=== PATIENT | female | born 1960 | race Caucasian/White ===

== ENCOUNTER 2017-02-17 10:45 | Emergency (ER) | payer MEDICARE, OTHER ==
[~2017-02-17] VITALS: Ht 170.2 cm; Wt 74.8 kg
[~2017-02-17 10:45] MED LIST: ALPR1TAB2 PO; CLON0.1T PO; ESCI20TA PO; LEVO200T6 PO; METO-274 PO; SIMV20TA3 PO
[2017-02-17] MEDS ORDERED: LEVAMIR (11:08)
[2017-02-17] MEDS ORDERED: OMEP40CA36 (11:08)
[2017-02-17] MEDS ORDERED: METF500T8 (11:08)
[2017-02-17] MEDS ORDERED: KETOROLAC 30 MG/ML VIAL IVP STA (11:40)
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
[2017-02-17 12:53] LABS: ANION GAP 13 MMOL/L (5-14); BLOOD UREA NITROGEN 16 MG/DL (7-18); BUN/CREATININE RATIO 20; CARBON DIOXIDE 24 MMOL/L (21-32); CHLORIDE 97 MMOL/L (98-107); CREATININE SERUM 0.82 MG/DL (0.60-1.30); GFR ESTIMATED > 60; GLUCOSE 271 MG/DL (70-105); POTASSIUM 4.6 MMOL/L (3.6-5.0); SODIUM 134 MMOL/L (135-145)
[2017-02-17] MEDS ORDERED: IOHEXOL 350 MG/ML 100 ML (OMNIPAQUE 350) VIAL IV ONE (13:15)
[2017-02-17] MEDS ORDERED: NS 100 ML (IVPB) BAG IV ONE (13:15)
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
[2017-02-17 14:34] VITALS: BP 172/94
== END 2017-02-17 14:34 | disposition home or self-care (01) ==
LOC: EDUNIT# 10:45 → ER 10:48
DX: S10.93XA Contusion of unspecified part of neck, initial encounter (principal); F41.9 Anxiety disorder, unspecified; F32.9 Major depressive disorder, single episode, unspecified; F31.9 Bipolar disorder, unspecified; E11.9 Type 2 diabetes mellitus without complications; I48.91 Unspecified atrial fibrillation; G47.30 Sleep apnea, unspecified; F17.210 Nicotine dependence, cigarettes, uncomplicated; F12.90 Cannabis use, unspecified, uncomplicated; Z90.710 Acquired absence of both cervix and uterus; Z79.84 Long term (current) use of oral hypoglycemic drugs; Y04.8XXA Assault by other bodily force, initial encounter
CPT/HCPCS: 36415; 70450; 70491; 80048; 96374

== ENCOUNTER 2019-07-05 14:00 | Emergency (ER) | payer MEDICARE ==
[~2019-07-05] VITALS: Ht 172.7 cm; Wt 72.7 kg
[~2019-07-05 14:00] MED LIST changes: +LEVAMIR; +METF500T19; -METO-274 PO; +MTP100TCR PO; +OMEP40CA27; +SIMV20TA26 PO; -SIMV20TA3 PO
[2019-07-05 14:34] LABS: BASOPHILS # (AUTO) 0.1 10^3/uL (0.0-0.1); BASOPHILS % (AUTO) 1 % (0-10); EOSINOPHILS # (AUTO) 0.2 10^3/uL (0.0-0.3); EOSINOPHILS % (AUTO) 1 % (0-10); HEMATOCRIT 48 % (35-52); HEMOGLOBIN 16.7 G/DL (11.5-16.0); LYMPHOCYTES # (AUTO) 4.2 X 10^3 (1.0-4.0); LYMPHOCYTES % (AUTO) 34 % (12-44); MEAN CORPUSCULAR HEMOGLOBIN 31 PG (25-34); MEAN CORPUSCULAR HGB CONC 35 G/DL (32-36); MEAN CORPUSCULAR VOLUME 90 FL (80-99); MEAN PLATELET VOLUME 10.7 FL (7.4-10.4); MONOCYTES # (AUTO) 0.9 X 10^3 (0.0-1.0); MONOCYTES % (AUTO) 7 % (0-12); NEUTROPHILS # (AUTO) 7.2 X 10^3 (1.8-7.8); NEUTROPHILS % (AUTO) 57 % (42-75); PLATELET COUNT 354 10^3/uL (130-400); WHITE BLOOD COUNT 12.5 10^3/uL (4.3-11.0)
--- NOTE | 2019-07-05 14:38 | ED Cardiac General ---
History of Present Illness General Chief Complaint: Chest Pain Stated Complaint: CHEST PAIN Nursing Triage Note: PT AMB TO RM 9 WITH COMPLAINT OF CHEST PAIN AND LEG HEAVINESS FOR THREE DAYS. STATES IS ALSO HAVING RIGHT SIDED BACK PAIN. Source: patient Exam Limitations: no limitations History of Present Illness Date Seen by Provider: Jul 05, 2019 Time Seen by Provider: 14:37 Initial Comments To ER with 3 day history of not feeling well. She has a history of "15 autoimmune disorders". She's had bilateral Heaviness, a sharp aching pain in her right upper back, pressure sensation in her chest, lightheadedness/dizziness at times. The pressure sensation in her chest has been constant since last night. Severity: moderate Location: central Activities at Onset: none NTG SL CONCRETE CONVEYOR OPERATOR: No ASA po CONCRETE CONVEYOR OPERATOR: No Associated Systoms: Chest Pain Allergies and Home Medications Allergies Coded Allergies: Penicillins (Verified Allergy, Unknown, 12/15/15) gabapentin (Verified Allergy, Unknown, 12/15/15) Home Medications Alprazolam 1 Mg Tablet, 1 MG PO DAILY PRN for ANXIETY, (Reported) Clonidine HCl 0.1 Mg Tablet, 0.1 MG PO BID PRN for Hypertension Prescribed by: LANCE ELIAS on 04/16/16 1358 Escitalopram Oxalate 20 Mg Tablet, 40 MG PO DAILY, (Reported) Levothyroxine Sodium 200 Mcg Tablet, 200 MCG PO DAILY, (Reported) Metoprolol Succinate 100 Mg Tab.er.24h, 150 MG PO DAILY, (Reported) Simvastatin 20 Mg Tablet, 20 MG PO DAILY, (Reported) Patient Home Medication List Home Medication List Reviewed: Yes Review of Systems Review of Systems Constitutional: see HPI; No chills, No fever EENTM: No Symptoms Reported Respiratory: See HPI; Denies Cough, Denies SOA With Exertion Cardiovascular: See HPI, Chest Pain, Lightheadedness Gastrointestinal: See HPI Genitourinary: No Symptoms Reported Musculoskeletal: no symptoms reported Skin: no symptoms reported Psychiatric/Neurological: No Symptoms Reported Past Roxjigq-Cpckew-Isvvth Hx Patient Social History Alcohol Use: Denies Use Recreational Drug Use: Yes Drug of Choice: MARIJUANA Smoking Status: Current Everyday Smoker Type Used: Cigarettes Recent Foreign Travel: No Contact w/Someone Who Travel: No Recent Infectious Disease Expo: No Recent Hopitalizations: No Immunizations Up To Date Tetanus Booster (TDap): Unknown PED Vaccines UTD: Yes Seasonal Allergies Seasonal Allergies: No Past Medical History Surgeries: Yes (2 C/S) Gallbladder, Hysterectomy Respiratory: Yes (SLEEP APNEA, USES C-PAP) Cardiac: Yes (A-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 AORTIC VALVE) Gastrointestinal: No Musculoskeletal: No Endocrine: Yes Diabetes, Non-Insulin dep Cancer: No Anxiety, Bipolar, Depression Family Medical History No Pertinent Family Hx Physical Exam Vital Signs Vital Signs - First Documented Capillary Refill : Less Than 3 Seconds Height, Weight, BMI Height: 5'7.00" Weight: 165lbs. 0.0oz. 74.708125bx; 24.00 BMI Method:Stated General Appearance: No Apparent Distress, WD/WN, Thin HEENT: PERRL/EOMI, TMs Normal Neck: Full Range of Motion, Normal Inspection Respiratory: No Accessory Muscle Use, No Respiratory Distress Cardiovascular: Normal Peripheral Pulses, Tachycardia (105) Gastrointestinal: Non Tender, Soft Extremity: Normal Capillary Refill, Normal Inspection Neurologic/Psychiatric: Alert, Oriented x3 Skin: Normal Color, Warm/Dry Progress/Results/Core Measures Results/Orders Lab Results Laboratory Tests Test 07/05/19 14:20 07/05/19 15:00 Range/Units White Blood Count 12.5 H 4.3-11.0 10^3/uL Red Blood Count 5.33 4.35-5.85 10^6/uL Hemoglobin 16.7 H 11.5-16.0 G/DL Hematocrit 48 35-52 % Mean Corpuscular Volume 90 80-99 FL Mean Corpuscular Hemoglobin 31 25-34 PG Mean Corpuscular Hemoglobin Concent 35 32-36 G/DL Red Cell Distribution Width 13.0 10.0-14.5 % Platelet Count 354 130-400 10^3/uL Mean Platelet Volume 10.7 H 7.4-10.4 FL Neutrophils (%) (Auto) 57 42-75 % Lymphocytes (%) (Auto) 34 12-44 % Monocytes (%) (Auto) 7 0-12 % Eosinophils (%) (Auto) 1 0-10 % Basophils (%) (Auto) 1 0-10 % Neutrophils # (Auto) 7.2 1.8-7.8 X 10^3 Lymphocytes # (Auto) 4.2 H 1.0-4.0 X 10^3 Monocytes # (Auto) 0.9 0.0-1.0 X 10^3 Eosinophils # (Auto) 0.2 0.0-0.3 10^3/uL Basophils # (Auto) 0.1 0.0-0.1 10^3/uL Prothrombin Time 12.3 12.2-14.7 SEC INR Comment 0.9 0.8-1.4 Activated Partial Thromboplast Time 26 24-35 SEC D-Dimer < 0.27 0.00-0.49 UG/ML Sodium Level 132 L 135-145 MMOL/L Potassium Level 4.0 3.6-5.0 MMOL/L Chloride Level 96 L 98-107 MMOL/L Carbon Dioxide Level 23 21-32 MMOL/L Anion Gap 13 5-14 MMOL/L Blood Urea Nitrogen 11 7-18 MG/DL Creatinine 0.86 0.60-1.30 MG/DL Estimat Glomerular Filtration Rate > 60 BUN/Creatinine Ratio 13 Glucose Level 367 H 70-105 MG/DL Calcium Level 10.1 8.5-10.1 MG/DL Corrected Calcium 8.5-10.1 MG/DL Magnesium Level 1.8 1.6-2.4 MG/DL Total Bilirubin 0.7 0.1-1.0 MG/DL Aspartate Amino Transf (AST/SGOT) 31 5-34 U/L Alanine Aminotransferase (ALT/SGPT) 34 0-55 U/L Alkaline Phosphatase 150 H 40-136 U/L Myoglobin 16.7 10.0-92.0 NG/ML Troponin I < 0.028 <0.028 NG/ML B-Type Natriuretic Peptide 25.2 <100.0 PG/ML Total Protein 7.8 6.4-8.2 GM/DL Albumin 4.6 H 3.2-4.5 GM/DL Lipase 19 8-78 U/L Thyroid Stimulating Hormone (TSH) 29.78 H 0.35-4.94 UIU/ML Free Thyroxine 0.62 L 0.70-1.48 NG/DL Urine Color YELLOW Urine Clarity CLEAR Urine pH 5.5 5-9 Urine Specific Crawford 1.020 1.016-1.022 Urine Protein NEGATIVE NEGATIVE Urine Glucose (UA) 3+ H NEGATIVE Urine Ketones NEGATIVE NEGATIVE Urine Nitrite NEGATIVE NEGATIVE Urine Bilirubin NEGATIVE NEGATIVE Urine Urobilinogen 0.2 < = 1.0 MG/DL Urine Leukocyte Esterase NEGATIVE NEGATIVE Urine RBC (Auto) NEGATIVE NEGATIVE Urine RBC NONE /HPF Urine WBC NONE /HPF Urine Squamous Epithelial Cells 5-10 /HPF Urine Crystals NONE /LPF Urine Bacteria TRACE /HPF Urine Casts NONE /LPF Urine Mucus NEGATIVE /LPF Urine Yeast FEW H /HPF Urine Culture Indicated NO Urine Opiates Screen NEGATIVE NEGATIVE Urine Oxycodone Screen NEGATIVE NEGATIVE Urine Methadone Screen NEGATIVE NEGATIVE Urine Propoxyphene Screen NEGATIVE NEGATIVE Urine Barbiturates Screen NEGATIVE NEGATIVE Ur Tricyclic Antidepressants Screen POSITIVE H NEGATIVE Urine Phencyclidine Screen NEGATIVE NEGATIVE Urine Amphetamines Screen NEGATIVE NEGATIVE Urine Methamphetamines Screen NEGATIVE NEGATIVE Urine Benzodiazepines Screen NEGATIVE NEGATIVE Urine Cocaine Screen NEGATIVE NEGATIVE Urine Cannabinoids Screen POSITIVE H NEGATIVE My Orders Orders - LANCE ELIAS APRN Cbc With Automated Diff (07/05/19 14:02) Magnesium (07/05/19 14:02) Chest 1 View, Ap/Pa Only (07/05/19 14:02) Ekg Tracing (07/05/19 14:02) Comprehensive Metabolic Panel (07/05/19 14:02) Myoglobin Serum (07/05/19 14:02) Protime With Inr (07/05/19 14:02) Partial Thromboplastin Time (07/05/19 14:02) O2 (07/05/19 14:02) Monitor-Rhythm Ecg Trace Only (07/05/19 14:02) Lipid Panel (07/06/19 06:00) Ed Iv/Invasive Line Start (07/05/19 14:02) Lipase (07/05/19 14:02) BNP (07/05/19 14:02) Fibrin Degradation Products (07/05/19 14:02) Troponin I (07/05/19 14:02) Ua Culture If Indicated (07/05/19 14:24) Drug Screen Stat (Urine) (07/05/19 14:24) Ns Iv 1000 Ml (Sodium Chloride 0.9%) (07/05/19 14:45) Thyroid Stimulating Hormone (07/05/19 14:39) Free T4 (Free Thyroxine) (07/05/19 14:39) Aspirin Chewable Tablet (Baby Aspirin Ch (07/05/19 14:45) Medications Given in ED Current Medications Medications Dose Ordered Sig/Doug Route Start Time Stop Time Status Last Admin Dose Admin Aspirin 324 mg ONCE ONCE PO 07/05/19 14:45 07/05/19 14:46 DC 07/05/19 14:47 324 MG Vital Signs/I&O 07/05/19 07/05/19 14:20 14:20 Pulse 89 Resp 13 B/P (MAP) 167/91 (116) Pulse Ox 98 O2 Delivery Room Air Room Air Blood Pressure Mean: 116 Departure Communication (Admissions) despite greater than 3 hrs constant chest pain her troponin remains negative. 1649-feeling better at this time, heart rate 87, blood pressure 123 systolic. I will discharge to home, she needs to follow up with primary care in regards to thyroid medication management. She agrees with this. She also has a left lower molar that she feels is abscess seen, she has a little pustule next to it, Impression Primary Impression: Chest pain Qualified Codes: R07.9 - Chest pain, unspecified Disposition: HOME, SELF-CARE Condition: Stable Departure-Patient Inst. Decision time for Depature: 16:34 Referrals: WERO LEE MD (PCP/Family) Primary Care Physician Patient Instructions: Chest Pain, Dental Pain, Hypothyroidism (Underactive Thyroid) Add. Discharge Instructions: 1. Follow-up with your family doctor to discuss adjusting her thyroid medications. Take antibiotics as directed for the tooth pain and swelling. Return to ER for any worsening of the symptoms and the chest or any other concerns. All discharge instructions reviewed with patient and/or family. Voiced understanding. Scripts Cephalexin (Cephalexin) 500 Mg Tablet 500 MG PO TID, #20 TAB 0 Refills Prov: LANCE ELIAS APRN 07/05/19 LANCE ELIAS APRN Jul 05, 2019 14:38
--- NOTE | 2019-07-05 14:38 | Diagnostic Imaging Report ---
INDICATION: Chest pain, heaviness, and back pain. FINDINGS: The lungs are clear. The heart size and vascularity are normal. No failure, effusion, or pneumothorax. No free air beneath the diaphragms. IMPRESSION: Unremarkable frontal chest. Dictated by: Dictated on workstation # [id number]
[2019-07-05] MEDS ORDERED: NS IV 1000 ML 1,000 ML IV SCH (14:45)
[2019-07-05] MEDS ORDERED: ASPIRIN 81 MG CHEW (CHILDREN'S ASA) PO ONE (14:45)
[2019-07-05 14:53] LABS: INR 0.9 (0.8-1.4); PROTHROMBIN TIME PATIENT 12.3 SEC (12.2-14.7)
[2019-07-05 14:54] LABS: ALANINE AMINOTRANSFERASE 34 U/L (0-55); ALBUMIN 4.6 GM/DL (3.2-4.5); ALKALINE PHOSPHATASE 150 U/L (40-136); BILIRUBIN,TOTAL 0.7 MG/DL (0.1-1.0); BUN/CREATININE RATIO 13; CALCIUM 10.1 MG/DL (8.5-10.1); CARBON DIOXIDE 23 MMOL/L (21-32); CHLORIDE 96 MMOL/L (98-107); CREATININE SERUM 0.86 MG/DL (0.60-1.30); GFR ESTIMATED > 60; GLUCOSE 367 MG/DL (70-105); MAGNESIUM 1.8 MG/DL (1.6-2.4); SODIUM 132 MMOL/L (135-145); TOTAL PROTEIN 7.8 GM/DL (6.4-8.2)
[2019-07-05 14:55] LABS: LIPASE 19 U/L (8-78)
[2019-07-05 15:11] LABS: BILIRUBIN,URINE NEGATIVE (NEGATIVE); CLARITY,URINE CLEAR; COLOR,URINE YELLOW; GLUCOSE, URINE (UA) 3+ (NEGATIVE); KETONES,URINE NEGATIVE (NEGATIVE); LEUKOCYTE ESTERASE ,URINE NEGATIVE (NEGATIVE); NITRITE,URINE NEGATIVE (NEGATIVE); PH,URINE 5.5 (5-9); PROTEIN,URINE NEGATIVE (NEGATIVE)
[2019-07-05 15:13] LABS: FREE T4 (FREE THYROXINE) 0.62 NG/DL (0.70-1.48)
[2019-07-05 15:18] LABS: BACTERIA,URINE TRACE /HPF; YEAST,URINE FEW /HPF
[2019-07-05 15:23] LABS: AMPHETAMINE SCREEN, URINE NEGATIVE (NEGATIVE); BARBITURATE SCREEN URINE NEGATIVE (NEGATIVE); BENZODIAZEPINES SCREEN URINE NEGATIVE (NEGATIVE); CANNABINOID SCREEN, URINE POSITIVE (NEGATIVE); COCAINE SCREEN URINE NEGATIVE (NEGATIVE); METHADONE STAT NEGATIVE (NEGATIVE); METHAMPHETAMINE SCREEN URINE S NEGATIVE (NEGATIVE); OPIATE SCREEN URINE NEGATIVE (NEGATIVE); OXYCODONE STAT NEGATIVE (NEGATIVE); PROPOXYPHENE STAT NEGATIVE (NEGATIVE); TRICYCLIC ANTIDEPRESSANTS SCRE POSITIVE (NEGATIVE)
[2019-07-05] MEDS ORDERED: CEPH500T PO (16:52)
[2019-07-05 17:00] VITALS: BP 160/90
== END 2019-07-05 17:02 | disposition home or self-care (01) ==
LOC: EDUNIT# 14:00 → ER 14:01
DX: R07.89 Other chest pain (principal); F41.9 Anxiety disorder, unspecified; F31.9 Bipolar disorder, unspecified; G47.30 Sleep apnea, unspecified; E11.9 Type 2 diabetes mellitus without complications; F17.210 Nicotine dependence, cigarettes, uncomplicated; Z99.89 Dependence on other enabling machines and devices; Z88.0 Allergy status to penicillin; Z88.8 Allergy status to other drugs, medicaments and biological substances
CPT/HCPCS: 36415; 71045; 80053; 80306; 81000; 83690; 83735; 83874; 83880; 84439; 84443; 84484; 85025; 85379; 85610; 85730; 93005; 93041

== ENCOUNTER → 2019-08-01 | Outpatient (CLI) | payer MEDICARE ==
[~2019-08-01] MED LIST changes: +CEPH500T PO
== END ==
LOC: RAD 15:17
PROVIDERS: ATTEND Physician Assistant
DX: Z12.31 Encounter for screening mammogram for malignant neoplasm of breast (principal); Z53.8 Procedure and treatment not carried out for other reasons

== ENCOUNTER → 2019-08-15 | Outpatient (CLI) | payer MEDICARE ==
--- NOTE | 2019-08-15 14:53 | Diagnostic Imaging Report ---
INDICATION: Palpable lump right breast. CORRELATION is made with prior mammogram from 01/01/2013. 2-D and 3-D bilateral diagnostic mammography was performed with CAD. A BB marker was placed at the area of palpable abnormality in the right breast. Multiple circumscribed nodules are identified in both breasts. A nodule in the upper outer right breast 5 cm from the nipple is noted, likely a cyst. No definite abnormality at the area of palpable abnormality in the upper right breast is seen. There are numerous circumscribed densities left breast. There appear to be circumscribed densities in the upper outer left breast approximately 5 cm from the nipple. There is a circumscribed density posterior to the nipple approximately 7 cm from the nipple. There is a circumscribed density at the 12:00 location approximally 5-6 cm from the nipple. These may represent cysts. Further evaluation with ultrasound will be performed. There are scattered benign calcifications. Axillae are unremarkable. IMPRESSION: BI-RADS 0 Bilateral breast densities. Further evaluation with ultrasound is recommended and will be performed today. In addition, ultrasound evaluation of the area of palpable abnormality in the upper right breast will be performed. ACR BI-RADS Category 0: Incomplete. (Needs additional imaging evaluation). Result letter will be mailed to the patient. Note: At least 10% of breast cancer is not imaged by mammography. Dictated by: Dictated on workstation # [id number]
--- NOTE | 2019-08-15 17:16 | Diagnostic Imaging Report ---
INDICATION: Palpable lump in the right breast as well as bilateral breast densities noted on diagnostic mammography. This study is performed for further evaluation. COMPARISON: Correlation is made with diagnostic mammogram earlier the same day. EXAMINATION: Bilateral breast ultrasound, limited. FINDINGS: Right breast: At the area of palpable abnormality there is heterogeneous fibroglandular tissue, measuring approximately 2.6 x 0.8 cm. No discrete mass is identified. There is also a cyst at the 10:00 retroareolar right breast, measuring 13 mm x 6 mm x 9 mm. There is a cyst at the 9:30 location of the right breast, 6 cm from the nipple, measuring 14 mm x 7 mm x 11 mm. No solid mass in the right breast is identified. Left breast: There are postsurgical changes in the upper outer left breast. There is some ductal ectasia at the 1:00 location, approximately 5 cm from the nipple, likely accounting for the mammographic densities. There is a cyst at the 8:00 location of the left breast, 4 cm from the nipple, measuring 6 mm x 3 mm x 7 mm. This may represent the density noted in the posterior aspect of the left breast on the mammographic views. No concerning findings are seen. IMPRESSION: Bilateral breast cysts and ductal ectasia, as described. There is fibroglandular tissue at the area of palpable abnormality in the right breast. No solid or concerning breast mass is detected. ACR BI-RADS Category 2: Benign findings. Result letter will be mailed to the patient. Note: At least 10% of breast cancer is not imaged by mammography. Dictated by: Dictated on workstation # [id number]
== END ==
LOC: RAD 14:01
PROVIDERS: ATTEND Physician Assistant
DX: N60.01 Solitary cyst of right breast (principal); N60.41 Mammary duct ectasia of right breast; N60.42 Mammary duct ectasia of left breast
CPT/HCPCS: 76642; 77066

== ENCOUNTER 2020-08-18 03:34 | Emergency (ER) | payer MEDICARE ==
[~2020-08-18] VITALS: Ht 172.7 cm; Wt 67.0 kg
[~2020-08-18 03:34] MED LIST changes: +CLN.1T PO; -CLON0.1T PO; +METF-865; -METF500T19
--- NOTE | 2020-08-18 03:59 | ED EENT ---
History of Present Illness General Chief Complaint: Dental Problems/Pain Stated Complaint: DENTAL PAIN Source: patient History of Present Illness Date Seen by Provider: Aug 18, 2020 Time Seen by Provider: 03:45 Initial Comments PT ARRIVES VIA POV FROM HOME C/O DENTAL PAIN STATES SHE HAS BEEN HAVING PROBLEMS WITH LEFT UPPER MOLAR FOR A FEW WEEKS, WORSE THE LAST FEW DAYS NO FEVER HAS NOT TAKEN ANYTHING FOR PAIN OR SOUGHT CARE UNTIL TONIGHT PT STATES SHE HAD A SIMILAR PROBLEM IN APRIL WITH ADJACENT TOOTH AND HAD TO HAVE TOOTH PULLED PT IS INSULIN DEPENDENT DIABETIC BLOOD GLUCOSE 160 TONIGHT BEFORE DINNER, THEN TOOK INSULIN, HAS NOT RECHECKED GLUCOSE SINCE, BUT STATES IT HAS BEEN "REAL GOOD LATELY" STATES SHE WAS ON BACTRIM FOR A BLISTER ON HER FOOT--FINISHED IT A WEEK AGO, AND IT IS BETTER PCP: CRISTINO Allergies and Home Medications Allergies Coded Allergies: Penicillins (Verified Allergy, Unknown, 12/15/15) gabapentin (Verified Allergy, Unknown, 12/15/15) Home Medications Alprazolam 1 Mg Tablet, 1 MG PO DAILY PRN for ANXIETY, (Reported) Cephalexin 500 Mg Tablet, 500 MG PO TID Prescribed by: LANCE ELIAS on 07/05/19 1652 Clindamycin HCl 300 Mg Capsule, 300 MG PO QID Prescribed by: ELVIN JEAN BAPTISTE on 08/18/20 0401 Clonidine HCl 0.1 Mg Tablet, 0.1 MG PO BID PRN for Hypertension Prescribed by: LANCE ELIAS on 04/16/16 1358 Escitalopram Oxalate 20 Mg Tablet, 40 MG PO DAILY, (Reported) Ketorolac Tromethamine 10 Mg Tablet, 10 MG PO Q6H Prescribed by: ELVIN JEAN BAPTISTE on 08/18/20 040 Levothyroxine Sodium 200 Mcg Tablet, 200 MCG PO DAILY, (Reported) Lidocaine HCl 15 Ml Solution, 1-2 ML MM [id number] Prescribed by: ELVIN JEAN BAPTISTE on 08/18/20 040 Metoprolol Succinate 100 Mg Tab.er.24h, 150 MG PO DAILY, (Reported) Simvastatin 20 Mg Tablet, 20 MG PO DAILY, (Reported) Patient Home Medication List Home Medication List Reviewed: Yes Review of Systems Review of Systems Constitutional: no symptoms reported Mouth: see HPI Neurological: No Symptoms Reported Past Xnjmqcb-Ufopuv-Tnpkct Hx Past Med/Social Hx: Reviewed and Corrections made Patient Social History Alcohol Use: Rarely Uses Drug of Choice: MARIJUANA Smoking Status: Current Everyday Smoker (1 PPD) Type Used: Cigarettes Recent Hopitalizations: No Immunizations Up To Date Tetanus Booster (TDap): Unknown PED Vaccines UTD: Yes Seasonal Allergies Seasonal Allergies: No Past Medical History Surgeries: Yes (2 C/S) Section ( X 2), Gallbladder, Hysterectomy Respiratory: Yes (SLEEP APNEA, USES C-PAP) Cardiac: Yes (A-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 AORTIC VALVE) Atrial Fibrillation, Irregular Heartbeat, Valvular Heart Disease 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 0.0oz. 74.774226am; 24.00 BMI Method:Stated General Appearance: WD/WN, no apparent distress, other (REEKS OF CIGARETTES) Eyes: bilateral eye PERRL, bilateral eye EOMI Ears: bilateral ear auricle normal, bilateral ear canal normal, bilateral ear TM normal Nose: normal inspection Mouth/Throat: other (LEFT UPPER POSTERIOR MOLAR AREA WITH MODERATE SWELLING AND ERYTHEMA TO GUM TISSUE--MISSING TEETH IN AREA. NO FACIAL SWELLING OR REDNESS) Neck: normal inspection; No lymphadenopathy (R), No lymphadenopathy (L) Cardiovascular: regular rate, rhythm Respiratory: normal breath sounds Neurologic/Psychiatric: skid wrapper II-XII nml as tested, no motor/sensory deficits, alert, normal mood/affect, oriented x 3 Skin: normal color, warm/dry Progress/Results/Core Measures Results/Orders My Orders Orders - ELVIN JEAN BAPTISTE DO Clindamycin Injection (Cleocin Injection (08/18/20 04:00) Ketorolac Injection (Toradol Injection) (08/18/20 04:00) Lidocaine 2% Viscous 15 Ml (Xylocaine Vi (08/18/20 04:00) Clindamycin Injection (Cleocin Injection (08/18/20 04:02) Medications Given in ED Current Medications Medications Dose Ordered Sig/Doug Route Start Time Stop Time Status Last Admin Dose Admin Clindamycin Phosphate 600 mg ONCE ONCE IM 08/18/20 04:00 08/18/20 04:02 DC 08/18/20 04:19 600 MG Ketorolac Tromethamine 60 mg ONCE ONCE IM 08/18/20 04:00 08/18/20 04:02 DC 08/18/20 04:18 60 MG Lidocaine HCl 5 ml ONCE ONCE MM 08/18/20 04:00 08/18/20 04:02 DC 08/18/20 04:18 5 ML Vital Signs/I&O 08/18/20 08/18/20 03:41 04:28 Temp 36.4 Pulse 76 76 Resp 20 20 B/P (MAP) 123/78 (93) 123/78 Pulse Ox 98 98 O2 Delivery Room Air Departure Impression Primary Impression: Dental infection Disposition: HOME, SELF-CARE Condition: Stable Departure-Patient Inst. Referrals: WERO LEE MD (PCP/Family) Primary Care Physician Patient Instructions: Tooth Abscess (DC), Dental Pain ED Add. Discharge Instructions: FREQUENT SALT WATER SWISHES TO AREA FOLLOW UP WITH [facility] THIS WEEK FOR FURTHER CARE All discharge instructions reviewed with patient and/or family. Voiced understanding. Scripts Lidocaine HCl (Lidocaine HCl Viscous) 15 Ml Solution 1-2 ML MM [id number], #120 ML Prov: ELVIN JEAN BAPTISTE DO 08/18/20 Ketorolac Tromethamine (Ketorolac Tromethamine) 10 Mg Tablet 10 MG PO Q6H for Pain, #15 TAB Prov: ELVIN JEAN BAPTISTE DO 08/18/20 Clindamycin HCl (Clindamycin HCl) 300 Mg Capsule 300 MG PO QID for 10 Days, #40 CAP Prov: ELVIN JEAN BAPTISTE DO 08/18/20 ELVIN JEAN BAPTISTE DO Aug 18, 2020 03:59
[2020-08-18] MEDS ORDERED: CLINDAMYCIN 600 MG/4ML (CLEOCIN) VIAL IM ONE (04:00)
[2020-08-18] MEDS ORDERED: KETOROLAC 60 MG/2 ML VIAL IM ONE (04:00)
[2020-08-18] MEDS ORDERED: LIDOCAINE 2% VISCOUS 15 ML UDC MM ONE (04:00)
[2020-08-18] MEDS ORDERED: LIDO20SO23 MM (04:01)
[2020-08-18] MEDS ORDERED: CLIN300C12 PO (04:01)
[2020-08-18] MEDS ORDERED: KETO10TA PO (04:01)
[2020-08-18] MEDS ORDERED: CLINDAMYCIN 600 MG/4ML (CLEOCIN) VIAL ONE (04:02)
[2020-08-18 04:28] VITALS: BP 123/78
== END 2020-08-18 04:24 | disposition home or self-care (01) ==
LOC: EDUNIT# 03:34 → ER 03:37
DX: K04.7 Periapical abscess without sinus (principal); I48.91 Unspecified atrial fibrillation; E11.9 Type 2 diabetes mellitus without complications; F31.9 Bipolar disorder, unspecified; F41.9 Anxiety disorder, unspecified; F17.210 Nicotine dependence, cigarettes, uncomplicated; Z86.79 Personal history of other diseases of the circulatory system; Z79.4 Long term (current) use of insulin; Z79.890 Hormone replacement therapy
CPT/HCPCS: 99284

== ENCOUNTER 2020-08-21 09:19 | Emergency (ER) | payer MEDICARE ==
[~2020-08-21] VITALS: Ht 172 cm; Wt 68.0 kg
[~2020-08-21 09:19] MED LIST changes: +CLIN300C12 PO; +KETO10TA PO; +LIDO20SO23 MM
--- NOTE | 2020-08-21 09:57 | ED Fall/Injury ---
General Chief Complaint: Trauma-Non Activation Stated Complaint: BACK PAIN,R WRIST PAIN Nursing Triage Note: ARRIVED VIA WC TO ROOM 08. STATES SHE TRIPPED OVER HER BROTHERS SHOES THIS AM CAUSING HER TO FALL. UNKNOWN LOC. FELL LATER IN THE AM DUE TO THE PAIN IN HER BACK FROM THE FIRST FALL. ALSO COMPLAIS OF RIGHT WRIST AND FACE PAIN. COMPLAINS OF DIZZINESS AFTER THE FALL. Source: patient Exam Limitations: no limitations (ANDREA COTO) History of Present Illness Date Seen by Provider: Aug 21, 2020 Time Seen by Provider: 09:40 Initial Comments Patient to the ER by private conveyance from home with chief complaint she has had 2 falls this morning. She got up about 4:00 in the morning go to the bathroom and was unable to urinate. She says she got dizzy when she stood up and tripped over her brother shoe falling backwards striking her right side of her head lightly but not losing consciousness. She is not on blood thinners or antiplatelets. She had another fall when she got up and was trying to go back to the bedroom but did not fall the way down. She is not having any chest pain shortness of air fevers chills palpitations or paresthesias. After her first fall she struck her back and is having pain starting in her sacrum going up to her low thoracic spine and occasionally radiating pain down into her right lower extremity. She does not have a history of back problems or sciatica nerve pain. She is not having loss of control of bowel or bladder, saddle anesthesia or weakness and was able to transfer from chair up to the bed without assistance. She also landed on her outstretched right wrist and is having some pain on her radial side distally. She says for the past week or so she has been dealing with a large abscess in her tooth and has a dentist appointment next Monday. She has been doing antibiotics and has not been able to eat or drink very well and thinks maybe this got her dehydrated. 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) Allergies and Home Medications Allergies Coded Allergies: Penicillins (Verified Allergy, Unknown, 12/15/15) gabapentin (Verified Allergy, Unknown, 12/15/15) Home Medications Alprazolam 1 Mg Tablet, 1 MG PO DAILY PRN for ANXIETY, (Reported) Cephalexin 500 Mg Tablet, 500 MG PO TID Prescribed by: LANCE ELIAS on 07/05/19 1652 Clindamycin HCl 300 Mg Capsule, 300 MG PO QID Prescribed by: ELVIN JEAN BAPTISTE on 08/18/20 040 Clonidine HCl 0.1 Mg Tablet, 0.1 MG PO BID PRN for Hypertension Prescribed by: LANCE ELIAS on 04/16/16 1358 Escitalopram Oxalate 20 Mg Tablet, 40 MG PO DAILY, (Reported) Ketorolac Tromethamine 10 Mg Tablet, 10 MG PO Q6H Prescribed by: ELVIN JEAN BAPTISTE on 08/18/20400 Levothyroxine Sodium 200 Mcg Tablet, 200 MCG PO DAILY, (Reported) Lidocaine HCl 15 Ml Solution, 1-2 ML MM [id number] Prescribed by: ELVIN JEAN BAPTISTE on 08/18/20400 Metoprolol Succinate 100 Mg Tab.er.24h, 150 MG PO DAILY, (Reported) Simvastatin 20 Mg Tablet, 20 MG PO DAILY, (Reported) Patient Home Medication List Home Medication List Reviewed: Yes (ANDREA COTO) Review of Systems Review of Systems Constitutional: see HPI; No chills, No fever Eyes: No Symptoms Reported Ears, Nose, Mouth, Throat: no symptoms reported Respiratory: no symptoms reported Cardiovascular: no symptoms reported Genitourinary: no symptoms reported Musculoskeletal: see HPI, back pain Skin: no symptoms reported (LANCE ELIAS APRN) Past Otueqlw-Tlraxm-Tfedne Hx Patient Social History Alcohol Use: Denies Use Drug of Choice: MARIJUANA Smoking Status: Current Everyday Smoker Type Used: Cigarettes Recent Infectious Disease Expo: No Recent Hopitalizations: No (ANDREA COTO) Immunizations Up To Date Tetanus Booster (TDap): Unknown PED Vaccines UTD: Yes (ANDREA COTO) Seasonal Allergies Seasonal Allergies: No (ANDREA COTO) Past Medical History Surgeries: Yes (2 C/S) Section, Gallbladder, Hysterectomy Respiratory: Yes (SLEEP APNEA, USES C-PAP) Cardiac: Yes (A-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 AORTIC VALVE) Atrial Fibrillation, Irregular Heartbeat, Valvular Heart Disease 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 0.0oz. 74.007164fw; 22.00 BMI Method:Stated (ANDREA COTO) General Appearance: WD/WN, no apparent distress, other (Alert and oriented very pleasant) HEENT: PERRL/EOMI, normal ENT inspection, other (Denies head injury and there is no scalp hematoma or tenderness. No neck tenderness. Full range of motion to the neck.) Neck: non-tender, full range of motion Respiratory: normal breath sounds, no respiratory distress, no accessory muscle use Gastrointestinal: normal bowel sounds, non tender, soft Extremities: normal range of motion, non-tender, other (Strength 4 out of 5 bilateral lower extremities. No numbness or tingling. Denies loss of bowel or bladder control. Occasionally she does have some pain that shoots down the right leg since the fall terminating just above the knee.) Neurologic/Psychiatric: alert, normal mood/affect, oriented x 3 Skin: normal color, warm/dry (LANCE ELIAS APRN) Waterman Coma Score Best Eye Response: (4) Open Spontaneously Best Verbal Response: (5) Oriented Best Motor Response: (6) Obeys Commands Irineo Total: 15 (LANCE ELIAS APRN) Progress/Results/Core Measures Results/Orders Lab Results Laboratory Tests Test 08/21/20 09:33 08/21/20 10:00 Range/Units Glucometer 306 H 70-110 MG/DL White Blood Count 23.3 H 4.3-11.0 10^3/uL Red Blood Count 5.12 H 3.80-5.11 10^6/uL Hemoglobin 16.1 H 11.5-16.0 g/dL Hematocrit 48 35-52 % Mean Corpuscular Volume 93 80-99 fL Mean Corpuscular Hemoglobin 31 25-34 pg Mean Corpuscular Hemoglobin Concent 34 32-36 g/dL Red Cell Distribution Width 13.1 10.0-14.5 % Platelet Count 418 H 130-400 10^3/uL Mean Platelet Volume 10.4 9.0-12.2 fL Immature Granulocyte % (Auto) 0 % Neutrophils (%) (Auto) 85 H 42-75 % Lymphocytes (%) (Auto) 9 L 12-44 % Monocytes (%) (Auto) 5 0-12 % Eosinophils (%) (Auto) 0 0-10 % Basophils (%) (Auto) 0 0-10 % Neutrophils # (Auto) 19.9 H 1.8-7.8 X 10^3 Lymphocytes # (Auto) 2.2 1.0-4.0 X 10^3 Monocytes # (Auto) 1.1 H 0.0-1.0 X 10^3 Eosinophils # (Auto) 0.0 0.0-0.3 10^3/uL Basophils # (Auto) 0.0 0.0-0.1 10^3/uL Immature Granulocyte # (Auto) 0.1 0.0-0.1 10^3/uL Neutrophils % (Manual) 82 % Lymphocytes % (Manual) 10 % Monocytes % (Manual) 7 % Band Neutrophils 1 % Blood Morphology Comment NORMAL Sodium Level 129 L 135-145 MMOL/L Potassium Level 4.6 3.6-5.0 MMOL/L Chloride Level 88 L 98-107 MMOL/L Carbon Dioxide Level 20 L 21-32 MMOL/L Anion Gap 21 H 5-14 MMOL/L Blood Urea Nitrogen 31 H 7-18 MG/DL Creatinine 2.21 H 0.60-1.30 MG/DL Estimat Glomerular Filtration Rate 23 BUN/Creatinine Ratio 14 Glucose Level 360 H 70-105 MG/DL Calcium Level 10.8 H 8.5-10.1 MG/DL Corrected Calcium 10.4 H 8.5-10.1 MG/DL Total Bilirubin 0.5 0.1-1.0 MG/DL Aspartate Amino Transf (AST/SGOT) 26 5-34 U/L Alanine Aminotransferase (ALT/SGPT) 33 0-55 U/L Alkaline Phosphatase 138 H 40-136 U/L Total Protein 8.2 6.4-8.2 GM/DL Albumin 4.5 3.2-4.5 GM/DL (LANCE ELIAS APRN) My Orders Orders - LANCE ELIAS APRN Hydromorphone Injection (Dilaudid Inject (08/21/20 11:45) Ekg Tracing (08/21/20 11:58) (LANCE ELIAS APRN) Medications Given in ED Current Medications Medications Dose Ordered Sig/Doug Route Start Time Stop Time Status Last Admin Dose Admin Fentanyl Citrate 50 mcg ONCE ONCE IVP 08/21/20 10:00 08/21/20 10:01 DC 08/21/20 10:12 50 MCG Lactated Ringer's 1,000 ml @ 0 mls/hr Q0M ONCE IV 08/21/20 10:00 08/21/20 10:01 DC 08/21/20 10:12 1,000 MLS/HR (LANCE ELIAS APRN) Vital Signs/I&O 08/21/20 08/21/20 09:20 10:14 Temp 37.0 Pulse 98 98 100 102 Resp 16 B/P (MAP) 90/59 (69) 91/58 (69) 97/61 (73) 90/40 (57) Pulse Ox 97 O2 Delivery Room Air (LANCE ELIAS APRN) Blood Pressure Mean: 69 FSBG Bedside Testing Finger Stick Blood Glucose: 306 (ANDREA COTO) Progress Progress Note : Time: 09:54 Progress Note The patient has soft blood pressure on arrival 90 systolic so we are going to do some orthostatics and assuming she is dehydrated related to poor oral intake we will give her some IV fluids and reassess. We are going to do some labs and urine as well as x-rays of her right wrist, chest and CT thoracolumbar spine looking for injury or infection. (ANDREA COTO) Diagnostic Imaging Diagonstic Imaging: Xray Plain Films/CT/US/NM/MRI: chest Reviewed: Reviewed by Me Diagonstic Imaging: Xray Plain Films/CT/US/NM/MRI: forearm (Right wrist 3 view) Reviewed: Reviewed by Me Diagonstic Imaging: CT Plain Films/CT/US/NM/MRI: other (Thoracolumbar spine) Reviewed: Reviewed by Me (ANDREA COTO) Departure Communication (Admissions) 1145-I have taken over care of the patient. She has a thoracic burst fracture. I have spoken with [facility] to discuss treatment options. Awaiting a callback from neurosurgery. Patient also has an acute kidney injury. She states she is been dealing with some dental pain and has not been eating or drinking much. She did receive 1 L of IV crystalloids so far. She also received 50 mcg of fentanyl and I am ordering 0.5 mg of Dilaudid. 1202-I spoke with the transfer center again at [facility] who visited with Dr. Palm from neurosurgery. Agrees this will be a surgical case. Would like the patient sent to the emergency room at [facility]. Transfer center nurse then spoke with Dr. Garcia who is the accepting physician in the emergency room. (LANCE ELIAS APRN) Impression Primary Impression: Burst fracture of thoracic vertebra Additional Impression: Acute kidney injury Disposition: 02 XFER SHT-TRM HOSP Condition: Stable Transfer Transfer Reason: Exceeds level of care Time Spoke to Accepting Phy: 12:03 (LANCE ELIAS APRN) Departure-Patient Inst. Referrals: [facility] [place] (PCP) Primary Care Physician ROMA FONTANA (Family) Primary Care Physician ANDREA COTO Aug 21, 2020 09:57 LANCE ELIAS APRN Aug 21, 2020 11:50
[2020-08-21] MEDS ORDERED: LACTATED RINGERS 1,000 ML IV ONE (10:00)
[2020-08-21] MEDS ORDERED: fentaNYL INJ 100 MCG/2 ML AMP IVP ONE (10:00)
[2020-08-21 10:14] VITALS: BP_SYST 90; BP_SYST 91; BP_SYST 97; BP_DIAS 40; BP_DIAS 58; BP_DIAS 61
--- NOTE | 2020-08-21 10:25 | Diagnostic Imaging Report ---
INDICATION: Falls, hypotension. COMPARISON: 07/05/2019 FINDINGS: Single frontal view of the chest demonstrates normal heart size and pulmonary vascularity. The lungs are well aerated and clear. No large pleural effusion or pneumothorax is seen. The visualized osseous structures show no acute abnormalities. IMPRESSION: 1. No acute cardiopulmonary process. Dictated by: Dictated on workstation # [id number]
[2020-08-21 10:26] LABS: BASOPHILS % (AUTO) 0 % (0-10); EOSINOPHILS % (AUTO) 0 % (0-10); HEMATOCRIT 48 % (35-52); HEMOGLOBIN 16.1 g/dL (11.5-16.0); LYMPHOCYTES # (AUTO) 2.2 X 10^3 (1.0-4.0); LYMPHOCYTES % (AUTO) 9 % (12-44); MEAN CORPUSCULAR HEMOGLOBIN 31 pg (25-34); MEAN CORPUSCULAR HGB CONC 34 g/dL (32-36); MEAN CORPUSCULAR VOLUME 93 fL (80-99); MEAN PLATELET VOLUME 10.4 fL (9.0-12.2); MONOCYTES # (AUTO) 1.1 X 10^3 (0.0-1.0); MONOCYTES % (AUTO) 5 % (0-12); NEUTROPHILS # (AUTO) 19.9 X 10^3 (1.8-7.8); NEUTROPHILS % (AUTO) 85 % (42-75); PLATELET COUNT 418 10^3/uL (130-400); WHITE BLOOD COUNT 23.3 10^3/uL (4.3-11.0)
--- NOTE | 2020-08-21 10:26 | Diagnostic Imaging Report ---
INDICATION: Fall. Right wrist pain and swelling. COMPARISON: None FINDINGS: Multiple radiographic views of the right wrist were obtained and demonstrate acute fracture of the distal radius. Fracture line is predominantly transverse, although there is suggestion of comminution. Longitudinal fracture line is also noted, but there is no distinct evidence of intra-articular extension. There is mild angulation with the apex projecting anteriorly. Distal ulna is intact. Radiocarpal joint space is maintained. No unexpected radiopaque foreign bodies are seen. IMPRESSION: 1. Acute Colles' type fracture of the distal right radius as described above. Dictated by: Dictated on workstation # [id number]
[2020-08-21 10:27] LABS: BAND NEUTROPHILS 1 %; LYMPHOCYTES % (MANUAL) 10 %; MONOCYTES % (MANUAL) 7 %; NEUTROPHILS % (MANUAL) 82 %
[2020-08-21 10:28] LABS: ALBUMIN 4.5 GM/DL (3.2-4.5); BILIRUBIN,TOTAL 0.5 MG/DL (0.1-1.0); CALCIUM 10.8 MG/DL (8.5-10.1); CREATININE SERUM 2.21 MG/DL (0.60-1.30); POTASSIUM 4.6 MMOL/L (3.6-5.0); RBC MORPH NORMAL; TOTAL PROTEIN 8.2 GM/DL (6.4-8.2)
--- NOTE | 2020-08-21 11:17 | Diagnostic Imaging Report ---
Clinical Indication: The patient fell twice yesterday. The patient has mid to lower back pain. No history of surgery. Exam: Axial CT scan of the thoracic and lumbar spine performed without IV contrast. Sagittal and coronal reformations were performed. Bone and soft tissue windows were created. Auto Exposure Controls were utilized during the CT exam to meet ALARA standards for radiation dose reduction. Comparison: None. Findings: There is a T12 vertebral body comminuted burst fracture with retropulsion extending roughly 7 mm posteriorly. There is at least moderate central canal stenosis. There is a horizontal fracture extending through the T11 vertebra. There is no fracture seen through the T11 or T12 pedicles or facets. There is slight kyphosis of the T12 vertebra. There is no other thoracic spine or lumbar spine fracture. There are small spurs involving the thoracic spine. There are small degenerative spurs involving the lumbar spine. Thoracic and lumbar spine otherwise shows no other significant central canal or neural foramen narrowing. IMPRESSION: 1: There is a comminuted burst fracture involving the T12 vertebra with associated at least moderate central canal stenosis. MRI of the lumbar spine is suggested for better evaluation for central canal narrowing. 2: There is also a horizontally oriented fracture through the T11 spinous process. 3: There is no other thoracic or lumbar spine fracture. The results of this report were discussed with Dr. Sarkis Glez via the telephone on 08/21/2020 at 1100 hours. Dictated by: Dictated on workstation # [id number]
[2020-08-21] MEDS ORDERED: HYDROmorphone 2 MG/ML VIAL (DILAUDID) IV ONE (11:45)
[2020-08-21] MEDS ORDERED: LACTATED RINGERS 1,000 ML IV SCH (12:15)
[2020-08-21 12:54] VITALS: BP 113/71
== END 2020-08-21 12:54 | disposition short-term general hospital (02) ==
LOC: EDUNIT# 09:19 → ER 09:20
DX: S22.081A Stable burst fracture of T11-T12 vertebra, initial encounter for closed fracture (principal); N17.9 Acute kidney failure, unspecified; M25.531 Pain in right wrist; K04.7 Periapical abscess without sinus; I48.91 Unspecified atrial fibrillation; E11.9 Type 2 diabetes mellitus without complications; F41.9 Anxiety disorder, unspecified; F31.9 Bipolar disorder, unspecified; F17.210 Nicotine dependence, cigarettes, uncomplicated; Z79.4 Long term (current) use of insulin; Z79.02 Long term (current) use of antithrombotics/antiplatelets; Z79.890 Hormone replacement therapy; W01.0XXA Fall on same level from slipping, tripping and stumbling without subsequent striking against object, initial encounter
CPT/HCPCS: 36415; 71045; 72128; 72131; 73110; 80053; 82962; 85007; 85027; 93005

== ENCOUNTER 2020-08-27 12:53 | Inpatient (IN) | payer MEDICARE ==
[~2020-08-27] VITALS: Ht 170.2 cm; Wt 73.2 kg
[2020-08-27] MEDS ORDERED: DOCUSATE SODIUM 100 MG (COLACE) CAP PO PRN (18:00)
[2020-08-27] MEDS ORDERED: ACETAMINOPHEN 325 MG TABLET PO PRN (18:00)
[2020-08-27] MEDS ORDERED: diphenhydrAMINE 25 MG TAB (BENADRYL) PO PRN (18:00)
[2020-08-27] MEDS ORDERED: guaiFENesin/CODEINE (ROBITUSSIN AC) 10ML UDC PO PRN (18:00)
[2020-08-27] MEDS ORDERED: FLEET ENEMA ADULT 1 EA BTL PR PRN (18:00)
[2020-08-27] MEDS ORDERED: LACTULOSE SYRUP 10GM/15ML (ENULOSE) 30ML UDC PO PRN (18:00)
[2020-08-27] MEDS ORDERED: LOPERAMIDE 2 MG (IMODIUM) TABLET PO PRN (18:00)
[2020-08-27 18:50] VITALS: BP 85/54
--- NOTE | 2020-08-27 18:58 | PM&R Post Admission Assessment ---
PM&R Date of Visit: Aug 27, 2020 Time of Visit: 18:50 History of Present Illness CC: Debility following T12 burst fracture s/p repair HPI: This is a 60yoWF clinic patient of [facility] who presents from [facility] following a fall with subsequent T12 burst fracture. I have reviewed [facility] notes and labs. Patient currently has a back brace on has severe pain upon transfer. BP is slightly low so IVF initiated. Checked meds and labs. Patient dose smoke and will continue the nicotine patch. Prior independence without use of AD. [facility] notes: ADMIT DATE08/21/2020 HospitalLOS: 6 days Primary Diagnosis-T12 burst fracture Subjective: Chief Complaint-back pain HPI-Shannan Hill a 60 y.o.femalehistory of diabetes mellitus, hypothyroidism and essential hypertension. Presented to the hospital 08/21 after having a fall where she landed on her buttocks and back. She was initially seen in an outside facility where she had back pain that radiated to her right leg. No bowel or bladder symptoms. Found to have a T12 burst fracture and broken right wrist. Transferred to [facility] for further management. On admission, WBC 22.7, PATRICIO, hyponatremia present. TSH 43.26. Free T4 pending. UA negative for UTI. X-ray of the pelvis negative for acute osseous abnormality. MRI lumbar spine and thoracic spine pending. Admitted under neurosurgery. Medicine consulted for medical management. Started on IV fluids.Electrolytes repleted. PATRICIO resolved. 08/24 patient had T12-L1 laminectomy and bilateral decompression. T10-T11, T11- T12, T12-L1, L1-L2 posterior lateral fusion using Medtronic pedicle screws and local bone graft. Completed by Dr. Johnson. No complications. 08/25 patient states she continues to have back pain. She is looking forward to starting PT/OT today. Per neurosurgery patient must have a TLSO brace on while sitting, standing, walking. Patient has no new concerns today. No adverse events overnight. Patient is noted to have an increase in white blood cell count this morning likely reactive from procedure. We will continue to monitor. No fever chills nausea vomiting, no chest pain 08/26 patient states she continues to have back pain. She was able to work with PT yesterday. Patient has her pain medicine can be adjusted because of the not helping much. I discussed with her that we needed to reduce the IV pain medications and that I would increase her p.o. medicine plan to DC IV pain medication. She expressed understanding. Patient has no other concerns at this time. No adverse events overnight. No fever chills nausea, no chest pain 08/27 patient states she is feeling better overall. She feels like she is able to do more today. She does state her biggest challenge is going from the lying down position to a sitting position. Patient has no new concerns at this time. No adverse events overnight. Neurosurgery is planning to discharge patient to rehab today. Patient's white blood cell count is coming down. See orders. 1. Status post fall: 2. T12 burst fracture: - s/p laminectomy and fusion 08/24/2020. See operative report PT/OT following -Neurosurgery continues to follow; continue pain control as scheduled per neurosurgery. Patient did not require IV pain medicine overnight -PT recommending inpatient rehab unit/facility -plan for discharge to inpatient rehab likely today per neurosurgery. 3. Right wrist fracture: 4. Hypovitaminosis D: a. X-ray of the pelvis negative for acute osseous abnormality. b. Low vitamin D levels. Continue ergocalciferol. 5. Acute kidney injury: Resolved. 6. Hypochloremic hyponatremia: Improved significantly. 7. Hypophosphatemia: Sodium phosphate 15 mmol x 1. 8. Leukocytosis: Likely reactive.decreasedtoday. Procalcitonin elevatedthis could be due to recent surgery versus infection. Patient while having drainage and at surgery site. 9. Essential hypertension:Controlled;continue Coreg and lisinopril 10. Mixed hyperlipidemia: a. Continue Coreg, Lipitor 11. Acquired hypothyroidism: Continue Synthroid. 12. Diabetes mellitus type 2: Continue Lantus and lispro. 13. GERD: Protonix. 14. Mood disorder: Continue Elavil and Lexapro. 15. ANALISA: Nocturnal CPAP. DVT Prophylaxis: Lovenox Code Status: Full Code Signed:Clyde Meyer DO 08/27/2020,11:14 AM Past Rzlnqtq-Aeshjg-Dtpqht Hx Past Med/Social Hx: Reviewed Nursing Past Med/Soc Hx, Reviewed and Corrections made Patient Social History Marrital Status: single Employed/Student: unemployed Drug of Choice: MARIJUANA Smoking Status: Current Everyday Smoker Type Used: Cigarettes Recent Foreign Travel: No Contact w/other who traveled: No Recent Hopitalizations: No Immunizations Up To Date Tetanus Booster (TDap): Unknown Pediatric: Yes Seasonal Allergies Seasonal Allergies: No Past Medical History Surgeries: Section, Gallbladder, Hysterectomy Cardiac: Atrial Fibrillation, Irregular Heartbeat, Valvular Heart Disease Hysterectomy, Menopausal Endocrine: Diabetes, Insulin dep Psychosocial: Anxiety, Bipolar, Depression History of Blood Disorders: No Family History No Pertinent Family Hx PM&R Allergy/Meds/Data Review Allergies Coded Allergies: Penicillins (Verified Allergy, Unknown, 12/15/15) gabapentin (Verified Allergy, Unknown, 12/15/15) Home Medications Scheduled Cephalexin (Cephalexin), 500 MG PO TID Clindamycin HCl (Clindamycin HCl), 300 MG PO QID Escitalopram Oxalate (Lexapro), 40 MG PO DAILY, (Reported) Ketorolac Tromethamine (Ketorolac Tromethamine), 10 MG PO Q6H Levothyroxine Sodium (Levothyroxine Sodium), 200 MCG PO DAILY, (Reported) Lidocaine HCl (Lidocaine HCl Viscous), 1-2 ML MM [id number] Metoprolol Succinate (Metoprolol Succinate), 150 MG PO DAILY, (Reported) Simvastatin (Simvastatin), 20 MG PO DAILY, (Reported) Scheduled PRN Alprazolam (Xanax), 1 MG PO DAILY PRN for ANXIETY, (Reported) Clonidine HCl (Clonidine HCl), 0.1 MG PO BID PRN for Hypertension Miscellaneous Medications Metformin HCl (Metformin HCl ER), (Reported) Omeprazole (Omeprazole), (Reported) [Levamir], (Reported) Current Medications Current Medications Reviewed Review of Systems Constitutional: see HPI, malaise, weakness EENTM: no symptoms reported Respiratory: no symptoms reported Cardiovascular: no symptoms reported Gastrointestinal: no symptoms reported Genitourinary: other (retention) Musculoskeletal: back pain Skin: no symptoms reported Psychiatric/Neurological: No Symptoms Reported All Other Systems Reviewed Negative Unless Noted: Yes Physical Exam Physical Exam Vital Signs Capillary Refill : Height, Weight, BMI Height: 5'7.00" Weight: 165lbs. 0.0oz. 74.680000ic; 22.00 BMI Method:Stated General Appearance: No Apparent Distress, WD/WN, Anxious, Chronically ill, Thin Eyes: Bilateral Eye Normal Inspection, Bilateral Eye PERRL HEENT: PERRL/EOMI, Normal ENT Inspection, Pharynx Normal Neck: Full Range of Motion, Normal Inspection, Non Tender, Supple, Carotid Bruit Respiratory: Chest Non Tender, Lungs Clear, Normal Breath Sounds, No Accessory Muscle Use, No Respiratory Distress Cardiovascular: Regular Rate, Rhythm, No Edema, No Gallop, No JVD, No Murmur, Normal Peripheral Pulses Gastrointestinal: Normal Bowel Sounds, No Organomegaly, No Pulsatile Mass, Non Tender, Soft Back: Decreased Range of Motion, Muscle Spasm, Vertebral Tenderness Extremity: Normal Capillary Refill, Normal Inspection, Normal Range of Motion, Non Tender, No Calf Tenderness, No Pedal Edema Neurologic/Psychiatric: Alert, Oriented x3, No Motor/Sensory Deficits, Normal Mood/Affect, 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 Norm as Tested, Abnormal Gait, Motor Weakness (lower legs) Skin: Normal Color, Warm/Dry Lymphatic: No Adenopathy PM&R Medical Assessment & Plan REHAB/MEDICAL ASSESSMENT AND PLAN: REHAB IMPAIRMENT GROUP: T12 burst fracture ETIOLOGIC DIAGNOSIS: T12 burst fracture The comorbidities that impact the patients function and/or functional outcome by: frail status, multiple co-morbidities, DM, smoker, COPD REHAB PLAN: The patient is being admitted to our comprehensive inpatient rehabilitation facility and can tolerate the intensity of service consisting of at least: 180 minutes of therapy a day, 5 out of 7 days a week Rehab treatment will consist of: PT OT will focus on regaining function while managing the pain of T12 burst fracture and increasing independence The patient/family has a good understanding of our discharge process and will b enefit from an interdisciplinary inpatient rehabilitation program. The patient has potential to make improvement and is in need of at least two of the following multidisciplinary therapies including but not limited to physical, occupational, speech, and prosthetics and orthotics. Additionally the patient will need services from respiratory, nutritional services, wound care, psycho logy, etc. (Customize this to each patient). Given the patients complex condition and risk of further medical complications, rehabilitation services cannot be safely or effectively provided at a lower level of care such as a halfway facility. BARRIERS TO DISCHARGE: Frail status ESTIMATED LOS: 10 days DISPOSITION: Home RELEVANT CHANGES SINCE PREADMISSION SCREENING: I have compared the patients medical and functional status at the time of the preadmission screening and there are: no changes PROGNOSIS: Fair REHABILITATION GOALS: 1. See above All the above goals were reviewed with the patient and he/she is in agreement. By signing this document, I acknowledge that I have personally performed a full physical examination on this patient within 24 hours of admission to this inpatient rehabilitation facility and have determined the patient to be able to tolerate the above course of treatment at an intensive level for a reasonable period of time. I will be completing a detailed individualized Plan of Care for this patient by day #4 of the patients stay based upon the Preadmission Screen, the Post-Admission Evaluation, and the therapy evaluations. Admission Dx/Comorbidities: (1) Burst fracture of thoracic vertebra Status: Acute ICD Codes: S22.001A - Stable burst fracture of unspecified thoracic vertebra, initial encounter for closed fracture Assessment/Plan Assessment and Plan Assess & Plan/Chief Complaint 1. Status post fall: 2. T12 burst fracture: - s/p laminectomy and fusion 08/24/2020. See operative report PT/OT following -Neurosurgery continues to follow; continue pain control as scheduled per neurosurgery. Patient did not require IV pain medicine overnight -PT recommending inpatient rehab unit/facility -plan for discharge to inpatient rehab likely today per neurosurgery. 3. Right wrist fracture: 4. Hypovitaminosis D: a. X-ray of the pelvis negative for acute osseous abnormality. b. Low vitamin D levels. Continue ergocalciferol. 5. Acute kidney injury: Resolved. 6. Hypochloremic hyponatremia: Improved significantly. 7. Hypophosphatemia: Sodium phosphate 15 mmol x 1. 8. Leukocytosis: Likely reactive.decreasedtoday. Procalcitonin elevatedthis could be due to recent surgery versus infection. Patient while having drainage and at surgery site. 9. Essential hypertension:Controlled;continue Coreg and lisinopril 10. Mixed hyperlipidemia: a. Continue Coreg, Lipitor 11. Acquired hypothyroidism: Continue Synthroid. 12. Diabetes mellitus type 2: Continue Lantus and lispro. 13. GERD: Protonix. 14. Mood disorder: Continue Elavil and Lexapro. 15. ANALISA: Nocturnal CPAP. Plan: IRF protocol Pain control IVF ASHLYN WINTERS DO Aug 27, 2020 18:58
[2020-08-27] MEDS ORDERED: NS IV 500 ML 500 ML IV SCH ×2 (19:10→19:15)
[2020-08-27] MEDS: NS IV 1000 ML 1,000 ML IV SCH (19:42)
[2020-08-27 20:30] VITALS: BP 91/64
[2020-08-27] MEDS: CARVEDILOL 12.5 MG (COREG) TABLET PO SCH (20:57)
[2020-08-27] MEDS: polyethylene glycoL POWDER 17 GM (MIRALAX) PACK PO SCH (20:57)
[2020-08-27] MEDS: DOCUSATE SODIUM 100 MG (COLACE) CAP PO SCH (20:57)
[2020-08-27] MEDS: inSUlin ASPART (NovoLOG) 1 UNIT/0.01 ML (CHARGE PER UNIT) SC SCH (20:58)
[2020-08-27] MEDS: SENNA W/DOCUSATE (SENOKOT S) TABLET PO SCH (20:58)
[2020-08-27] MEDS ORDERED: AMITRIPTYLINE 150 MG (ELAVIL) TABLET PO SCH (21:00)
[2020-08-27] MEDS: AMITRIPTYLINE 50 MG (ELAVIL) TAB PO SCH (21:02)
[2020-08-27] MEDS: GABAPENTIN 600 MG (NEURONTIN) TAB PO PRN (21:02)
[2020-08-27 22:45] VITALS: BP 94/63
[2020-08-28] MEDS: BISACODYL 10 MG SUPP (DULCOLAX) PR PRN (05:29)
[2020-08-28] MEDS: NS IV 1000 ML 1,000 ML IV SCH (05:29)
[2020-08-28 05:42] LABS: BASOPHILS # (AUTO) 0.1 10^3/uL (0.0-0.1); BASOPHILS % (AUTO) 0 % (0-10); EOSINOPHILS # (AUTO) 0.3 10^3/uL (0.0-0.3); EOSINOPHILS % (AUTO) 2 % (0-10); HEMATOCRIT 28 % (35-52); HEMOGLOBIN 9.3 g/dL (11.5-16.0); LYMPHOCYTES # (AUTO) 3.6 10^3/uL (1.0-4.0); LYMPHOCYTES % (AUTO) 23 % (12-44); MEAN CORPUSCULAR HEMOGLOBIN 33 pg (25-34); MEAN CORPUSCULAR HGB CONC 34 g/dL (32-36); MEAN CORPUSCULAR VOLUME 96 fL (80-99); MEAN PLATELET VOLUME 9.9 fL (9.0-12.2); MONOCYTES # (AUTO) 1.1 10^3/uL (0.0-1.0); MONOCYTES % (AUTO) 7 % (0-12); NEUTROPHILS # (AUTO) 10.4 10^3/uL (1.8-7.8); NEUTROPHILS % (AUTO) 67 % (42-75); PLATELET COUNT 344 10^3/uL (130-400); WHITE BLOOD COUNT 15.5 10^3/uL (4.3-11.0)
[2020-08-28 05:54] LABS: CHLORIDE 103 MMOL/L (98-107); POTASSIUM 3.3 MMOL/L (3.6-5.0); SODIUM 136 MMOL/L (135-145)
[2020-08-28 05:55] LABS: CALCIUM 8.2 MG/DL (8.5-10.1)
[2020-08-28 05:56] LABS: GLUCOSE 70 MG/DL (70-105); TOTAL PROTEIN 5.2 GM/DL (6.4-8.2)
[2020-08-28 05:57] LABS: CARBON DIOXIDE 23 MMOL/L (21-32)
[2020-08-28 05:58] LABS: BILIRUBIN,TOTAL 0.7 MG/DL (0.1-1.0)
[2020-08-28 05:59] LABS: ALKALINE PHOSPHATASE 92 U/L (40-136)
[2020-08-28 06:00] LABS: CREATININE SERUM 0.65 MG/DL (0.60-1.30); GFR ESTIMATED > 60
[2020-08-28 06:01] VITALS: BP 111/62
[2020-08-28 06:01] LABS: BUN/CREATININE RATIO 15
[2020-08-28 06:02] LABS: ALANINE AMINOTRANSFERASE 24 U/L (0-55)
[2020-08-28] MEDS: inSUlin ASPART (NovoLOG) 1 UNIT/0.01 ML (CHARGE PER UNIT) SC SCH ×4 (06:06→20:19)
[2020-08-28] MEDS: LEVOTHYROXINE 100 MCG (LEVOTHROID) TAB PO SCH (06:06)
[2020-08-28] MEDS: LEVOTHYROXINE 75 MCG (LEVOTHROID) TABLET PO SCH (06:06)
[2020-08-28] MEDS ORDERED: LEVOTHYROXINE 150 MCG (LEVOTHROID) TAB PO SCH (06:30)
[2020-08-28 09:00] VITALS: BP 110/71
--- NOTE | 2020-08-28 09:00 | Physical Therapy Evaluation ---
PT Evaluation-General Medical Diagnosis Admission Date Aug 27, 2020 at 18:31 Medical Diagnosis: T 12 burst fx Onset Date: Aug 21, 2020 Therapy Diagnosis Therapy Diagnosis: impaired mobility, strength, endurance, pain Height/Weight Height (Feet): 5 Height (Inches): 7.00 Weight (Pounds): 165 Weight (Ounces): 0.0 Precautions Precautions/Isolations: Fall Prevention, Standard Precautions Weight Bear Status Right Lower Extremity: Right Weight Bearing/Tolerated Left Lower Extremity: Left Weight Bearing/Tolerated NO WEIGHT BEARING RIGHT UPPER EXTREMITY Referral Physician: Coco Degroot DO Reason for Referral: Evaluation/Treatment Medical History Pertinent Medical History: DM, Neuropathy Additional Medical History 1. Status post fall: 2. T12 burst fracture: - s/p laminectomy and fusion 08/24/2020. See operative report PT/OT following -Neurosurgery continues to follow; continue pain control as scheduled per neurosurgery. Patient did not require IV pain medicine overnight -PT recommending inpatient rehab unit/facility -plan for discharge to inpatient rehab likely today per neurosurgery. 3. Right wrist fracture: 4. Hypovitaminosis D: a. X-ray of the pelvis negative for acute osseous abnormality. b. Low vitamin D levels. Continue ergocalciferol. 5. Acute kidney injury: Resolved. 6. Hypochloremic hyponatremia: Improved significantly. 7. Hypophosphatemia: Sodium phosphate 15 mmol x 1. 8. Leukocytosis: Likely reactive.decreasedtoday. Procalcitonin elevatedthis could be due to recent surgery versus infection. Patient while having drainage and at surgery site. 9. Essential hypertension:Controlled;continue Coreg and lisinopril 10. Mixed hyperlipidemia: a. Continue Coreg, Lipitor 11. Acquired hypothyroidism: Continue Synthroid. 12. Diabetes mellitus type 2: Continue Lantus and lispro. 13. GERD: Protonix. 14. Mood disorder: Continue Elavil and Lexapro. 15. ANALISA: Nocturnal CPAP. Current History 08/24 patient had T12-L1 laminectomy and bilateral decompression. T10-T11, T11- T12, T12-L1, L1-L2 posterior lateral fusion using Medtronic pedicle screws and local bone graft. Social History Home: Single Level Current Living Status: Other Family Entry Into Home: Stairs With Railing PT Steps Into Home: 2 Prior Prior Level of Function SCALE: Activities may be completed with or without assistive devices. 6-Xgwzpqcevo-pzqolsd completes the activity by him/herself with no assistance from a helper. 5-Set-up or Clean-up Assistance-helper sets up or cleans up; patient completes activity. [place] assists only prior to or following the activity. 4-Supervision or Touching Assistance-helper provides verbal cues and/or touching/steadying and/or contact guard assistance as patient completes activity. Assistance may be provided throughout the activity or intermittently. 3-Partial/Moderate Assistance-helper does LESS THAN HALF the effort. [place] lifts, holds or supports trunk or limbs, but provides less than half the effort. 2-Substantial/Maximal Assistance-helper does MORE THAN HALF the effort. [place] lifts or holds trunk or limbs and provides more than half the effort. 8-Jwjadaozb-aiovag does ALL the effort. Patient does none of the effort to complete the activity. Or, the assistance of 2 or more helpers is required for the patient to complete the activity. If activity was not attempted, code reason: 7-Patient Refused. 9-Not Applicable-not attempted and the patient did not perform the activity before the current illness, exacerbation or injury. 10-Not Attempted due to Environmental Limitations-(lack of equipment, weather restraints, etc.). 88-Not Attempted due to Medical Conditions or Safety Concerns. Bed Mobility: 6 Transfers (B,C,W/C): 6 Gait: 6 Stairs: 6 Indoor Mobility (Ambulation): Independent Stairs: Independent Prior Devices Use: None PT Evaluation-Current Subjective Patient laying supine in bed pre tx, with OT. Patient reports noted painful muscle spasms in lumbar area that extends into L quad. When these spasms occur she reports 10/10 pain. Patient had not received any pain medication prior to treatment. Patient consented to treatment. Pt/Family Goals Return home with independent functional mobility Objective Patient Orientation: Person, Place, Time, Normal For Age Attachments: Wilson Catheter, IV Patient noted she lost her train of thought a few times during session. ROM/Strength ROM Lower Extremities WFL Strength Lower Extremities Unable to assess secondary to patient subjective reports of increased pain complaints when transferred from supine <-> sit. Patient able to lift legs against gravity without assistance, but was not able to directly test MMT as patient could not tolerate seated position and could not tolerate resistance for testing in a supine position. Integumentary/Posture Integumentary see nursing report Bowel Incontinence: Yes Bladder Incontinence: Yes Posture mild kyphosis Sensory Vision: Functional Hearing: Functional Sensation Right Lower Extremit: Impaired Sensation Left Lower Extremity: Impaired Sensation Lower Extremities Patient reports neuropathy in bilateral feet, that it feels like "pins and needles" secondary to DM. Following further testing, patient had no unusual sensation changes in LE post-op and is able to perceive light touch globally. Transfers Roll Left & Right (QC): 2 Sit to Lying (QC): 2 Lying to Sitting/Side of Bed(Q: 2 Sit to Stand (QC): 88 Chair/Cjp-aa-Qaleq Xfer(QC): 88 Toilet Transfer (QC): 88 Car Transfer (QC): 88 When transfer from supine <-> sit, patient would report intense muscle spasm in low back and L hip flexor that would cause her to thrust backwards into bed. Patient was instructed to try to refrain from sudden movements that could cause damage to spine. Patient was also instructed in performing a log roll. Gait Does the Patient Walk?: No and Walking Goal IS indicated Mode of Locomotion: Walk Anticipated Mode of Locomotion: Walk Walk 10 feet (QC): 88 Walk 50 ft with 2 Turns(QC): 88 Walk 150 ft (QC): 88 Walking 10ft/uneven surface-QC: 88 Comments/Gait Description Could not assess gait at this time secondary to 02/28 reports and patient begging to assume supine position. Wheelchair Training Wheel 50 ft with 2 turns (QC): 88 Wheel 150 ft (QC): 88 Stairs 1 Step (curb) (QC): 88 4 Steps (QC): 88 12 Steps (QC): 88 Balance Sitting Static: Poor Sitting Dynamic: Poor Picking up an Object (QC): 88 Special Test Comments Could not assess standing balance at this time. Treatment Co-treated with OT secondary to patient fall risk, level of assistance required with mobility, and decreased functional endurance and pain with activity. PT focused on transfers and bed mobility while maintaining spinal precautions, while OT focused on functional ADL's while maintaining UE precautions. Assessment/Needs Patient has impaired mobility, strength, endurance, balance, pain. Patient in bed post tx with nurse call, phone, tray, all needs met. Patient has severe pain with activity and could not tolerate even a sitting position. Rehab Potential: Guarded PT Short Term Goals Short Term Goals Time Frame: Sep 04, 2020 Roll Left & Right: 3 Sit to lyin Lying to sitting on side of be: 3 Sit to stand: 3 Chair/keq-we-vhhbt transfer: 3 Toilet transfer: 3 Car transfer: 3 Walk 10 feet: 3 Walk 50 feet with two turns: 3 Walk 150 feet: 3 Walking 10ft on uneven surface: 3 1 step (curb): 3 4 steps: 3 Picking up objects: 88 Min x1 PT Care Home Goals Engineering Model Maker Goals PT Care Home Goals Time Frame: Sep 18, 2020 Roll Left & Right (QC): 4 Sit to Lying (QC): 4 Lying-Sitting on Side/Bed(QC): 4 Sit to Stand (QC): 4 Chair/Otk-se-Umbdb Xfer(QC): 4 Toilet Transfer (QC): 4 Car Transfer (QC): 4 Does the Patient Walk: No and Walking Goal IS indicated Walk 10 feet (QC): 4 Walk 50ft with 2 Turns (QC): 4 Walk 150 ft (QC): 4 Walking 10ft on Uneven Surface: 4 1 Step (curb) (QC): 4 4 Steps (QC): 4 12 Steps (QC): 88 Picking up an Object (QC): 88 Wheel 50 feet with 2 turns (QC: 6 Wheel 150 feet: 6 PT Plan Problem List Problem List: Activity Tolerance, Functional Strength, Safety, Balance, Gait, Transfer, Bed Mobility, ROM Treatment/Plan Treatment Plan: Continue Plan of Care Treatment Plan: Bed Mobility, Education, Functional Activity [place], Functional Strength, Group Therapy, Gait, Safety, Therapeutic Exercise, Transfers Treatment Duration: Sep 18, 2020 Frequency: At least 5 of 7 days/Wk (IRF) Estimated Hrs Per Day: 1.5 hours per day Patient and/or Family Agrees t: Yes Safety Risks/Education Patient Education: Reviewed Precautions, Correct Positioning, Safety Issues Teaching Recipient: Patient Teaching Methods: Demonstration, Discussion Response to Teaching: Reinforcement Needed Discharge Recommendations Plan Patient will perform bed mobility and transfer training, balance and endurance training, functional strengthening, stair training, gait training, and educ ation, to improve functional mobility and independence at home. Therapy Discharge Recommendati: Scheduled Assistance, Home & Family, Post Acute PT Time/GCodes Time In: 0800 Time Out: 0900 Total Billed Treatment Time: 60 Total Billed Treatment 1 visit EVM 10' FA 50' co-treated from [id number], PT eval from [id number] BOB FANG PT Aug 28, 2020 09:00
[2020-08-28] MEDS ORDERED: ASPI325T32 PO (09:07)
[2020-08-28] MEDS ORDERED: LEVO175C2 PO (09:07)
[2020-08-28] MEDS ORDERED: OXYC10TA7 PO (09:07)
[2020-08-28] MEDS ORDERED: SITA100T12 PO (09:07)
[2020-08-28] MEDS ORDERED: INSU100I29 SC (09:07)
[2020-08-28] MEDS ORDERED: ATOR80TA76 PO (09:07)
[2020-08-28] MEDS ORDERED: CARV25TA PO (09:07)
[2020-08-28] MEDS ORDERED: AMIT100T2 PO (09:07)
[2020-08-28] MEDS ORDERED: OMEP40CA27 PO (09:07)
[2020-08-28] MEDS ORDERED: CYCL10TA9 PO (09:07)
[2020-08-28] MEDS ORDERED: ESCI20TA39 PO (09:07)
[2020-08-28] MEDS ORDERED: GABA800T10 PO (09:07)
--- NOTE | 2020-08-28 09:23 | Occupational Therapy Eval ---
OT Evaluation-General/PLF Medical Diagnosis Admission Date Aug 27, 2020 at 18:31 Medical Diagnosis: T 12 burst fx Onset Date: Aug 21, 2020 Therapy Diagnosis Therapy Diagnosis: Weakness, decreased ADL status Height/Weight Height (Feet): 5 Height (Inches): 7.00 Weight (Pounds): 165 Weight (Ounces): 0.0 Precautions Precautions/Isolations: Fall Prevention, Standard Precautions Comments Back Brace when OOB Weight Bear Status Weight Bearing Restriction: Non Weight Bearing Location Restriction: R UE Referral Physician: Coco Degroot DO Referral Reason: Evaluation/Treatment Medical History Pertinent Medical History: DM, Neuropathy Additional Medical History hypovitaminosis D, hypochloremic hyponatremia, hypophosphatemia, leukocytosis, HTN, mixed HLD, hypothyroidism, T2DM, GERD, mood disorder, afib, valvular heart disease, anxiety/depression, bipolar Current History Fall resulting in T12 burst fx, s/p T12-L1 lami and bilateral decompression, T10-12, L1-2 Posterior lateral fusion. R wrist Fx (NWB) Social History Home: Single Level Current Living Status: Other Family Entry Into Home: Stairs With Railing Steps Into Home: 2 ADL-Prior Level of Function SCALE: Activities may be completed with or without assistive devices. 1-Bgolojrszt-mrfuhjw completes the activity by him/herself with no assistance from a helper. 5-Set-up or Clean-up Assistance-helper sets up or cleans up; patient completes activity. [place] assists only prior to or following the activity. 4-Supervision or Touching Assistance-helper provides verbal cues and/or touching/steadying and/or contact guard assistance as patient completes activity. Assistance may be provided throughout the activity or intermittently. 3-Partial/Moderate Assistance-helper does LESS THAN HALF the effort. [place] lifts, holds or supports trunk or limbs, but provides less than half the effort. 2-Substantial/Maximal Assistance-helper does MORE THAN HALF the effort. [place] lifts or holds trunk or limbs and provides more than half the effort. 9-Bpppknott-atzalu does ALL the effort. Patient does none of the effort to complete the activity. Or, the assistance of 2 or more helpers is required for the patient to complete the activity. If activity was not attempted, code reason: 7-Patient Refused. 9-Not Applicable-not attempted and the patient did not perform the activity b efore the current illness, exacerbation or injury. 10-Not Attempted due to Environmental Limitations-(lack of equipment, weather restraints, etc.). 88-Not Attempted due to Medical Conditions or Safety Concerns. ADL PLOF Comments Pt reports being independent with all ADLs and functional mobility at PLOF, no AD/AE. Self Care: Independent Functional Cognition: Independent DME/Equipment: Tub/Shower OT Current Status Subjective Pt laying in bed, agreeable to OT evaluation, then OT/PT cotreat. 10/10 pain in L hip area that pt correlates with muscle spasms. This pain occurred any time pt sat up on EOB causing pt to thrust herself back into bed. Pain Numeric Pain Scale: 10-Worst Possible Pain Location: Left Location Body Site: Hip Pain Description: Burning Mental Status/Objective Patient Orientation: Person, Place, Time, Situation, Normal For Age Attachments: Wilson Catheter, IV Current Glasses/Contacts: Yes (reading) Hearing Aids: No Dentures/Partials: No Hand Dominance: Right Upper Extremity ROM RUE WFL at shoulder/elbow. Wrist fx, so no movements performed at wrist/forearm. LUE WFL. Upper Extremity Coordination Decreased due to decreased use of RUE Upper Extremity Sensation Pt does not report any changes in sensation Upper Extremity Strength Not formally tested due to recent back surgery and extreme pain/muscle spasms with sitting EOB. Pt able to lift BUE shoulders against gravity, but pt unable to tolerate any resistance at this time. ADL-Treatment Eating (QC): 5 (set up) Oral Hygiene (QC): 5 (based on clincial judgement, pt would require set up assist with task.) Shower/Bathe Self (QC): 1 (Assist x2 for sponge bath, pt able to wash chest, abdomen, periarea. Assist with other parts.) Upper Body Dressing (QC): 2 (Based on clincial judgement, pt would require assistance with RUE, assist to manage shirt down and assistance with donning back brace.) Lower Body Dressing (QC): 1 (Assist x2 required and assistance with all parts.) On/Off Footwear (QC): 1 (Total assist) Toileting Hygiene (QC): 1 (Assist x2 and assist with all parts.) Other Treatments OT evaluation complete, then OT/PT cotreat due to skill of 2 clinicians required which a clinical rehabilitation coordinator could not perform in order to coordinate UE/LEs, due to pt's limitations in strength, mobility, activity tolerance, transfers. OT focused on UE placement, ADLs, cues for sequencing and safety, PT focused on LE placement, mobility, transfers. Pt supine in bed, transferred to B for sponge bath. Upon sitting at side of bed, pt reports muscle spasm in L hip region, causing pt to throw herself towards R side back into the bed. Pt attempted a couple more times throughout tx to sit up on the side of the bed, but each time had extreme pain where she thrust herself back into bed. Pt reports needing to have a BM, but unable to transfer to [facility] so bed burk placed. Pt attempted to toilet but unsuccessful, bed burk removed and pt again states need to toilet. Bed burk put back in place, pt attempted to toilet, but still unsuccessful. Clean clothes donned at bed level, log rolling side to side. Post tx, pt laying in bed, call light in reach and all needs met. Education OT Patient Education: Correct positioning, Modified ADL techniques, Progress toward Goal/Update tx plan, Purpose of tx/functional activities, Rehab process Teaching Recipient: Patient Teaching Methods: Discussion Response to Teaching: Verbalize Understanding OT Short Term Goals Short Term Goals Time Frame: Sep 09, 2020 Toileting hygiene: 3 Shower/bathe self: 3 Upper body dressin Lower body dressin Putting on/taking off footwear: 3 OT Group Tester Goals Group Tester Goals Time Frame: September 25, 2020 Eating (QC): 6 Oral Hygiene (QC): 6 Toileting Hygiene (QC): 4 Shower/Bathe Self (QC): 4 Upper Body Dressing (QC): 5 Lower Body Dressing (QC): 4 On/Off Footwear (QC): 4 Additional Goals: 1-Demonstrate ADL Tasks, 2-Verbalize Understanding, 3- ImproveStrength/Babatunde 1=Demonstrate adherence to instructed precautions during ADL tasks. 2=Patient will verbalize/demonstrate understanding of assistive devices/modifications for ADL. 3=Patient will improve strength/tolerance for activity to enable patient to perform ADL's. OT Education/Plan Problem List/Assessment Assessment: Decreased Activ Tolerance, Decreased UE Strength, Impaired Bed Mobility, Impaired Coordination, Impaired Funct Balance, Impaired I ADL's, Impaired Self-Care Skills, Restricted Funct UE ROM Discharge Recommendations Plan/Recommendations: Continue POC Therapy Discharge Recommendati: Scheduled Assistance, Home & Family, Post Acute OT Equpiment Recommendations-D/C: Extended Bath Bench Treatment Plan/Plan of Care Patient would benefit from OT for education, treatment and training to promote independence in ADL's, mobility, safety and/or upper extremity function for ADL's. Plan of Care: ADL Retraining, Functional Mobility, Group Exercise/Act as Ind, UE Funct Exercise/Act Treatment Duration: September 25, 2020 Frequency: At least 5 of 7 days/Wk (IRF) Estimated Hrs Per Day: 1.5 hours per day Rehab Potential: Guarded Time/GCodes Start Time: 07:50 Stop Time: 09:00 Total Time Billed (hr/min): 60 Billed Treatment Time 4094-8219 OT eval, [id number] PT eval, [id number] OT/PT cotreat 1, EVM (10'), ADL 3 (50') YUNIEL GILBERT OT Aug 28, 2020 09:23
[2020-08-28] MEDS ORDERED: OMEP1CAP10 PO (09:29)
[2020-08-28] MEDS: ASPIRIN E.C. 325 MG (ECOTRIN) TABLET PO SCH (09:30)
[2020-08-28] MEDS: DOCUSATE SODIUM 100 MG (COLACE) CAP PO SCH ×2 (09:31→21:39)
[2020-08-28] MEDS: SENNA W/DOCUSATE (SENOKOT S) TABLET PO SCH ×2 (09:31→21:40)
[2020-08-28] MEDS: PANTOPRAZOLE 40 MG (PROTONIX) TAB PO SCH (09:31)
[2020-08-28] MEDS: CARVEDILOL 12.5 MG (COREG) TABLET PO SCH ×2 (09:31→21:40)
[2020-08-28] MEDS: polyethylene glycoL POWDER 17 GM (MIRALAX) PACK PO SCH ×2 (09:56→21:40)
--- NOTE | 2020-08-28 11:23 | ST Cognitive Linguistic Eval ---
Speech Evaluation-General Medical Diagnosis T 12 burst fx Onset Date: Aug 21, 2020 Therapy Diagnosis Therapy Diagnosis: Cognitive-communication Precautions Precautions: Fall Precautions/Isolations: Standard Precautions Referral Referring Physician: Dr. Degroot Medical History Pertinent Medical History: DM, Neuropathy Social History Current Living Status: Other Family Speech PLF-Current Status Prior Level of Function Patient lives in her own home where she was independent for her daily needs prior to her fall with injury. Patient states her brother is currently staying with her. Subjective Patient was cooperative with the cognitive assessment. Language Eval: Auditory Comprehends Simple Yes/No Ques: Functional Indent/Objects Multiple [place]: Functional Ident/Pics in Multiple [place]: Functional Follows 1-Step Commands: Functional Follows Complex Directions: Functional Follows General Conversations: Functional Language Eval: Verbal Language Completes Spontaneous Greeting: Functional Produces Auto, Serial Info: Functional Imitates Simple Words/Phrases: Functional Word Finding: Functional Requests Basic Needs: Functional States Basic Personal Info: Functional Expresses Complex Ideas: Functional Objective Cognitive Domain Attention: WNL Memory: WNL Problem Solving: Functional Executive Functions: WNL Visuospatial Skills: WNL Composite Severity Rating: WNL Objective Formal/Standardized Tests [facility] Mental Status ([facility]) Results , within normal range of function Oral Motor/Speech Production Within normal limits Impression Patient is a pleasant 60 y/o female who was admitted to the ARU due to fall with spine injury. Patient completed the cognitive assessment with informal speech tasks and SLUMS within normal range of function. Patient's function does not indicate the need for further ST services at this time. Speech Patient Assess Expression of Ideas/Wants: Expression (4) Understanding Verbal Content: Understands (4) Brief Interview-Mental Status: Yes Repetition of Three Words: Three (3) Temporal Orientation: Year: Correct (3) Temporal Orientation: Month: Accurate within 5 days(2) Temporal Orientation: Day: Correct (1) Recall : Wear to say "Sock": Yes, no cue required (2) Recall : Color: Yes, no cue required (2) Recall : Bed: Yes,after cueing (1) Memory/Recall Ability: Current season, That he or she is in a hsp/hsp unit Speech-Plan Patient/Family Goals Patient/Family Goals: Patient plans on returning to her home where she will have family support to assist her. Treatment Plan Speech Therapy Treatment Plan: Discontinue ST Treatment Duration: Aug 28, 2020 Frequency: 1 time per week Estimated Hrs Per Day: .25 hour per day Rehab Potential: Fair Barriers to Learning: Patient's current level of phyiscal disability due to fall with spine injury Pt/Family Agrees to Plan: Yes Time Speech Therapy Time In: 11:00 Speech Therapy Time Out: 11:15 Total Billed Time: 15 Billed Treatment Time 1, SPSNDCOMP No KRYSTIN OBREGON Aug 28, 2020 11:23
--- NOTE | 2020-08-28 12:24 | PM&R Progress Note ---
Subjective HPI/CC On Admission Date Seen by Provider: Aug 28, 2020 Time Seen by Provider: 12:30 Subjective/Events-last exam 08/28/20: Much improved status Multiple issues are addressed No BM for 3 weeks and started to move a bit with supp Vaginal yeast infection Wilson catheter maintained Dr Keen consulted Pain is an issue Hypoglycemia noted Review of Systems General: Fatigue Genitourinary: Retention Musculoskeletal: back pain Focused Exam Lactate Level 08/28/20 06:03: Lactic Acid Level 1.02 Objective Exam Vital Signs Vital Signs Date Time Temp Pulse Resp B/P (MAP) Pulse Ox O2 Delivery O2 Flow Rate FiO2 08/28/20 21:00 Room Air 08/28/20 17:10 36.3 80 18 80/50 (60) 94 Capillary Refill : General Appearance: No Apparent Distress, WD/WN, Anxious, Chronically ill, Thin HEENT: PERRL/EOMI, Normal ENT Inspection, Pharynx Normal Neck: Full Range of Motion, Normal Inspection, Non Tender, Supple, Carotid Bruit Respiratory: Chest Non Tender, Lungs Clear, Normal Breath Sounds, No Accessory Muscle Use, No Respiratory Distress Cardiovascular: Regular Rate, Rhythm, No Edema, No Gallop, No JVD, No Murmur, Normal Peripheral Pulses Gastrointestinal: Normal Bowel Sounds, No Organomegaly, No Pulsatile Mass, Non Tender, Soft Back: Decreased Range of Motion, Muscle Spasm, Vertebral Tenderness Extremity: Normal Capillary Refill, Normal Inspection, Normal Range of Motion, Non Tender, No Calf Tenderness, No Pedal Edema Neurologic/Psychiatric: Alert, Oriented x3, No Motor/Sensory Deficits, Normal 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 FIM Transfers Therapy Code Descriptions/Definitions Functional [place] Measure: 0=Not Assessed/NA 4=Minimal Assistance 1=Total Assistance 5=Supervision or Setup 2=Maximal Assistance 6=Modified [place] 3=Moderate Assistance 7=Complete IndependenceSCALE: Activities may be completed with or without assistive devices. 3-Cultnfdywl-utrefwn completes the activity by him/herself with no assistance from a helper. 5-Set-up or Clean-up Assistance-helper sets up or cleans up; patient completes activity. [place] assists only prior to or following the activity. 4-Supervision or Touching Assistance-helper provides verbal cues and/or touching/steadying and/or contact guard assistance as patient completes a ctivity. Assistance may be provided throughout the activity or intermittently. 3-Partial/Moderate Assistance-helper does LESS THAN HALF the effort. [place] lifts, holds or supports trunk or limbs, but provides less than half the effort. 2-Substantial/Maximal Assistance-helper does MORE THAN HALF the effort. [place] lifts or holds trunk or limbs and provides more than half the effort. 1-Xulnxmggu-xcuglo does ALL the effort. Patient does none of the effort to complete the activity. Or, the assistance of 2 or more helpers is required for the patient to complete the activity. If activity was not attempted, code reason: 7-Patient Refused. 9-Not Applicable-not attempted and the patient did not perform the activity before the current illness, exacerbation or injury. 10-Not Attempted due to Environmental Limitations-(lack of equipment, weather restraints, etc.). 88-Not Attempted due to Medical Conditions or Safety Concerns. Roll Left to Right (QC): 2 Sit to Lying (QC): 2 Sit to Stand (QC): 88 Chair/Qma-bh-Gnokk Xfer(QC): 88 Car Transfer (QC): 88 Gait Training Does the Patient Walk?: No and Walking Goal IS indicated Walk 10 feet (QC): 88 Walk 50 ft with 2 Turns(QC): 88 Walk 150 ft (QC): 88 Walking 10ft/uneven surface-QC: 88 Wheelchair Training Wheel 50 ft with 2 turns (QC): 88 Wheel 150 ft (QC): 88 Stair Training 1 Step (curb) (QC): 88 4 Steps (QC): 88 12 Steps (QC): 88 Balance Picking up an Object (QC): 88 ADL-Treatment Eating (QC): 5 (set up) Oral Hygiene (QC): 5 (based on clincial judgement, pt would require set up assist with task.) Shower/Bathe Self (QC): 1 (Assist x2 for sponge bath, pt able to wash chest, abdomen, periarea. Assist with other parts.) Upper Body Dressing (QC): 2 (Based on clincial judgement, pt would require assistance with RUE, assist to manage shirt down and assistance with donning back brace.) Lower Body Dressing (QC): 1 (Assist x2 required and assistance with all parts.) On/Off Footwear (QC): 1 (Total assist) Toileting Hygiene (QC): 1 (Assist x2 and assist with all parts.) Assessment/Plan Assessment and Plan Assess & Plan/Chief Complaint 1. Status post fall: 2. T12 burst fracture: - s/p laminectomy and fusion 08/24/2020. See operative report PT/OT following -Neurosurgery continues to follow; continue pain control as scheduled per neurosurgery. Patient did not require IV pain medicine overnight -PT recommending inpatient rehab unit/facility -plan for discharge to inpatient rehab likely today per neurosurgery. 3. Right wrist fracture: 4. Hypovitaminosis D: a. X-ray of the pelvis negative for acute osseous abnormality. b. Low vitamin D levels. Continue ergocalciferol. 5. Acute kidney injury: Resolved. 6. Hypochloremic hyponatremia: Improved significantly. 7. Hypophosphatemia: Sodium phosphate 15 mmol x 1. 8. Leukocytosis: Likely reactive.decreasedtoday. Procalcitonin elevatedthis could be due to recent surgery versus infection. Patient while having drainage and at surgery site. 9. Essential hypertension:Controlled;continue Coreg and lisinopril 10. Mixed hyperlipidemia: a. Continue Coreg, Lipitor 11. Acquired hypothyroidism: Continue Synthroid. 12. Diabetes mellitus type 2: Continue Lantus and lispro. 13. GERD: Protonix. 14. Mood disorder: Continue Elavil and Lexapro. 15. ANALISA: Nocturnal CPAP. Plan: IRF protocol Pain control IVF 08/28/20: BM regimen Yeast treamtent Pain control Hold insulin (1) Burst fracture of thoracic vertebra Status: Acute ASHLYN WINTERS DO Aug 28, 2020 12:24
--- NOTE | 2020-08-28 12:24 | Individualized Plan of Care ---
Individualized Plan of Care Rehab Nursing IPOC Order Admission Date Aug 27, 2020 at 18:31 Current Orders Orders Sequential Compression Device .admit (08/27/20 18:00) Rn Access-Inpt Rehab Con (08/27/20 18:00) Rehab Nursing Orders-Ipoc (08/27/20 18:00) Physical Therapy Rehab Orders (08/27/20 18:00) Occupational Therapy Rehab Ord (08/27/20 18:00) Speech Therapy Rehab Orders (08/27/20 18:00) Cbc With Automated Diff (08/28/20 06:00) Comprehensive Metabolic Panel (08/28/20 06:00) Intake & Output 06,14,22 (08/27/20 18:00) Precautions (Aru) (08/27/20 18:00) Rehab-Intensity Of Therapy (08/27/20 18:00) Initiate Admission Nursing Pro .admission (08/27/20 18:00) Acetaminophen Tablet/Caplet (Tylenol T (08/27/20 18:00) Alprazolam Tablet (Xanax Tablet) (08/27/20 18:00) Calcium Carbonate Chew Tablet (Antacid C (08/27/20 18:00) Diphenhydramine Tablet (Benadryl Tablet) (08/27/20 18:00) Docusate Sodium Capsule (Colace Capsule) (08/27/20 21:00) Docusate Sodium Capsule (Colace Capsule) (08/27/20 18:00) Bisacodyl Suppository (Dulcolax Supposit (08/27/20 18:00) Lactulose Oral Solution (Enulose Oral So (08/27/20 18:00) Na Phos/Na Biphos Enema (Fleet Enema [place] (08/27/20 18:00) Guaifenesin/Codeine Syrup (Robitussin Ac (08/27/20 18:00) Loperamide Tablet (Imodium Tablet) (08/27/20 18:00) Melatonin Tablet (Melatonin Tablet) (08/27/20 18:00) Polyethylene Glycol Powder Pkt (Miralax (08/27/20 21:00) Ondansetron Oral Dissolve Tab (Zofran (08/27/20 18:00) Senna S Tablet (Senokot S Tablet) (08/27/20 21:00) Admission Order(Inpt,Obs,Sdc) (08/27/20 18:00) Vital Signs: Per Unit Policy ( ,16,00 (08/27/20 18:00) Sammy Hose (08/27/20 18:00) Amitriptyline Tablet (Elavil Tablet) (08/27/20 21:00) Aspirin Enteric Coated Tablet (Ecotrin T (08/28/20 09:00) Atorvastatin Tablet (Lipitor Tablet) (08/27/20 21:00) Carvedilol Tablet (Coreg Tablet) (08/27/20 21:00) Cyclobenzaprine Tablet (Flexeril Tablet) (08/27/20 19:00) Citalopram Tablet (Celexa Tablet) (08/28/20 09:00) Gabapentin Capsule/Tablet (Neurontin Cap (08/27/20 19:00) Accucheck Achs ACHS (08/27/20 18:53) Insulin Aspart (Novolog) (Novolog (Charg (08/27/20 21:00) Insulin Determir (Per Unit) (Levemir (Pe (08/27/20 21:00) Levothyroxine Tablet (Synthroid Tablet) (08/28/20 06:30) Pantoprazole Tablet (Protonix Tablet) (08/28/20 09:00) Oxycodone Immediate Rel Tablet (Oxyir Ta (08/27/20 19:00) Amitriptyline Tablet (Elavil Tablet) (08/27/20 21:00) Ns Iv 1000 Ml (Sodium Chloride 0.9%) (08/27/20 19:15) Ns Iv 500 Ml (Sodium Chloride 0.9%) (08/27/20 19:10) Catheter(Urinary) Care .0300, 1500 (08/27/20 19:12) Levothyroxine Tablet (Synthroid Tablet) (08/28/20 06:30) Levothyroxine Tablet (Synthroid Tablet) (08/28/20 06:30) Cho 60g/M 1snack (16-2000 G[place]a) (08/28/20 Breakfast) Weight Bearing Restrictions (08/28/20 00:18) Request Ot Additional Orders (08/28/20 00:18) Request Pt Additional Orders (08/28/20 00:18) Follow-Up Appointment (08/28/20 00:45) Nursing Communication (Order) (08/28/20 00:45) Dressing Order (Intervention) UD (08/28/20 00:45) Lactic Acid Analyzer (08/28/20 05:04) Procalcitonin (Pct) (08/28/20 05:04) Iron Test (Fe) (08/28/20 05:04) Patient Visit (08/28/20 ) Speech Sound Lang Comp (08/28/20 ) Miconazole Nitrate 2% Crm (Micaderm 2% C (08/28/20 21:00) Scopolamine Patch (Transderm-Scop Patch) (08/28/20 12:30) Fluconazole Tablet (Diflucan Tablet) (08/29/20 09:00) Potassium Chloride (Tablet) (K Dur Table (08/28/20 12:30) Potassium Chloride (Tablet) (Klor Con Ta (08/29/20 07:00) Consult Urology (08/28/20 12:17) Patch Removal (Patch Removal) (08/31/20 12:29) Nicotine Patch (Nicoderm Patch) (08/28/20 12:45) Patch Removal (Patch Removal) (08/29/20 08:59) Glucerna (08/28/20 14:00) Tamsulosin Capsule (Flomax Capsule) (08/28/20 18:00) Tamsulosin Capsule (Flomax Capsule) (08/28/20 18:00) Patient Visit (08/28/20 ) Pt Eval Moderate Complexity (08/28/20 ) Functional Activities, Ea 15 (08/28/20 ) Rehab Nursing Orders: Ongoing Assess. of Cognitive Status, Ongoing Assess. of Function Status, Bladder Management, Bladder Scan, Bladder Training, Bowel Man agement, Bowel Training, Disease Management & Educaiton, DVT Prophylaxis, Fall Prevention, Fluid/Electrolyte/Nutrition Mgmt, Infection Prevention, Medication Management & Education, Management of Risks & Complications, Nutrition Management, Pain Management, Patient/Family Support, Safety Management Intensity of Therapy to be met Patient to be seen: Min.3h per day/5 of 7d PT IPOC Problem List: Activity Tolerance, Functional Strength, Safety, Balance, Gait, Transfer, Bed Mobility, ROM Treatment Plan: Continue Plan of Care Bed Mobility, Education, Functional Activity Bab[place], Functional Strength, Group Therapy, Gait, Safety, Therapeutic Exercise, Transfers Treatment Duration: Sep 18, 2020 Frequency: At least 5 of 7 days/Wk (IRF) Estimated Hrs Per Day: 1.5 hours per day OT IPOC Problems: Decreased Activ Tolerance, Decreased UE Strength, Impaired Bed Mobility, Impaired Coordination, Impaired Funct Balance, Impaired I ADL's, Impaired Self-Care Skills, Restricted Funct UE ROM OT Treatment, Training and Edu: Yes Plan of Care: ADL Retraining, Functional Mobility, Group Exercise/Act as Ind, UE Funct Exercise/Act Treatment Duration: September 25, 2020 Frequency: At least 5 of 7 days/Wk (IRF) Estimated Hrs Per Day: 1.[address] IPOC Speech Therapy Treatment Plan: Discontinue ST Treatment Duration: Aug 28, 2020 Frequency: 1 time per week Estimated Hrs Per Day: .25 hour per day Rn Access/Case Mgmt Rn Access/Case Managemen: Discharge Planning Dietitian/Rn Gastroenterology Dietitian/Rn Gastroenterology to monitor nutritional status and make changes and/or recommendations as needed and work with speech pathology on dietary upgrades as the occur. Physician IPOC Medical Issues being managed closely and that require the 24 hour availability of a physician: Patient with recent critical illness and current disability from T12 burst fracture and hypoglycemia with severe constipation will require close monitoring Medical Issues: Bowel/Bladder Function, DVT Prophylaxis, Falls Precautions, Fluid/Electrolyte/Nutrition Balance, Infection Protection, Pain Management Brief Synthesis of Preadmission Screen, Post-Admission Evaluation, and Therapy Evaluations: PT OT will focus on regaining function from severe disability from T12 burst fracture and increase use of AD and help with independence. Medical Prognosis: Good Anticipated Length of Stay: 14 days ASHLYN WINTERS DO Aug 28, 2020 12:24
[2020-08-28] MEDS ORDERED: KCL 20 MEQ TAB (K-DUR) PO NR (12:30)
[2020-08-28] MEDS: NICOTINE 21 MG (NICODERM) PATCH TD SCH (13:20)
[2020-08-28] MEDS: SCOPOLAMINE 1.5 MG (TRANSDERM-SCOP) PATCH TD SCH (13:23)
[2020-08-28] MEDS: ONDANSETRON 4 MG (ZOFRAN) ORAL DISSOLVE TAB PO PRN (13:33)
--- NOTE | 2020-08-28 13:59 | Physical Therapy Daily Note ---
PT Daily Note-Current Subjective Patient in bed pre tx, agrees to PT, has 10/10 pain in back and left leg, she has had pain meds. Will be co-treating with OT due to poor patient mobility, strength, endurance, severe pain with activity, coordinate UE and LE during activity, safety and reduce risk of falls. Appearance Patient in bed post tx with nurse call, phone, tray, all needs met. Mental Status Patient Orientation: Person, Place, Situation Attachments: Wilson Catheter TLSO Transfers SCALE: Activities may be completed with or without assistive devices. 7-Oqpgbfqipu-hdtbelj completes the activity by him/herself with no assistance from a helper. 5-Set-up or Clean-up Assistance-helper sets up or cleans up; patient completes activity. [place] assists only prior to or following the activity. 4-Supervision or Touching Assistance-helper provides verbal cues and/or brent yakov/steadying and/or contact guard assistance as patient completes activity. Assistance may be provided throughout the activity or intermittently. 3-Partial/Moderate Assistance-helper does LESS THAN HALF the effort. [place] lifts, holds or supports trunk or limbs, but provides less than half the effort. 2-Substantial/Maximal Assistance-helper does MORE THAN HALF the effort. [place] lifts or holds trunk or limbs and provides more than half the effort. 4-Kbfgkjrio-tpyzix does ALL the effort. Patient does none of the effort to complete the activity. Or, the assistance of 2 or more helpers is required for the patient to complete the activity. If activity was not attempted, code reason: 7-Patient Refused. 9-Not Applicable-not attempted and the patient did not perform the activity before the current illness, exacerbation or injury. 10-Not Attempted due to Environmental Limitations-(lack of equipment, weather restraints, etc.). 88-Not Attempted due to Medical Conditions or Safety Concerns. Roll Left & Right (QC): 1 Sit to Lying (QC): 1 Lying to Sitting/Side of Bed(Q: 1 Sit to Stand (QC): 2 Patient dependent x2 for supine <-> sit but max assist for sit to stand. Patie nt was able to take a couple of steps toward the head of the bed and then sit. Cues for hand placement and positioning and instruction on how to perform a log roll Weight Bearing Right Lower Extremity: Right Weight Bearing/Tolerated Left Lower Extremity: Left Weight Bearing/Tolerated NO WEIGHT BEARING RIGHT UPPER EXTREMITY Treatments bed mobility, standing Assessment Current Status: Fair Progress Patient has a lot of pain in her left leg and leg spasms even when standing. PT Short Term Goals Short Term Goals Time Frame: Sep 04, 2020 Roll Left & Right: 3 Sit to lyin Lying to sitting on side of be: 3 Sit to stand: 3 Chair/elm-ya-odslt transfer: 3 Toilet transfer: 3 Car transfer: 3 Walk 10 feet: 3 Walk 50 feet with two turns: 3 Walk 150 feet: 3 Walking 10ft on uneven surface: 3 1 step (curb): 3 4 steps: 3 Picking up objects: 88 PT Prison Goals Er Nurse Goals PT Er Nurse Goals Time Frame: Sep 18, 2020 Roll Left & Right (QC): 4 Sit to Lying (QC): 4 Lying-Sitting on Side/Bed(QC): 4 Sit to Stand (QC): 4 Chair/Apw-hx-Wbgxw Xfer(QC): 4 Toilet Transfer (QC): 4 Car Transfer (QC): 4 Does the Patient Walk: No and Walking Goal IS indicated Walk 10 feet (QC): 4 Walk 50ft with 2 Turns (QC): 4 Walk 150 ft (QC): 4 Walking 10ft on Uneven Surface: 4 1 Step (curb) (QC): 4 4 Steps (QC): 4 12 Steps (QC): 88 Picking up an Object (QC): 88 Wheel 50 feet with 2 turns (QC: 6 Wheel 150 feet: 6 PT Plan Problem List Problem List: Activity Tolerance, Functional Strength, Safety, Balance, Gait, Transfer, Bed Mobility, ROM Treatment/Plan Treatment Plan: Continue Plan of Care Treatment Plan: Bed Mobility, Education, Functional Activity Babatunde, Functional Strength, Group Therapy, Gait, Safety, Therapeutic Exercise, Transfers Treatment Duration: Sep 18, 2020 Frequency: At least 5 of 7 days/Wk (IRF) Estimated Hrs Per Day: 1.5 hours per day Patient and/or Family Agrees t: Yes Safety Risks/Education Patient Education: Transfer Techniques, Reviewed Precautions, Correct Positioning, Reviewed Don/Doff Brace, Safety Issues Teaching Recipient: Patient Teaching Methods: Demonstration, Discussion Response to Teaching: Reinforcement Needed Time/GCodes Time In: 1330 Time Out: 1400 Total Billed Treatment Time: 30 Total Billed Treatment 1 visit FA 30' BOB FANG PT Aug 28, 2020 13:59
--- NOTE | 2020-08-28 14:27 | Occupational Ther Daily Note ---
OT Current Status-Daily Note Subjective Pt laying in bed, agreeable to OT tx. 02/28 pain in back, reports constant muscle spasms Mental Status/Objective Patient Orientation: Person, Place, Time, Situation ADL-Treatment Therapy Code Descriptions/Definitions Functional [place] Measure: 0=Not Assessed/NA 4=Minimal Assistance 1=Total Assistance 5=Supervision or Setup 2=Maximal Assistance 6=Modified [place] 3=Moderate Assistance 7=Complete IndependenceSCALE: Activities may be completed with or without assistive devices. 2-Xgznszsyzn-duugrml completes the activity by him/herself with no assistance from a helper. 5-Set-up or Clean-up Assistance-helper sets up or cleans up; patient completes activity. [place] assists only prior to or following the activity. 4-Supervision or Touching Assistance-helper provides verbal cues and/or touching/steadying and/or contact guard assistance as patient completes activity. Assistance may be provided throughout the activity or intermittently. 3-Partial/Moderate Assistance-helper does LESS THAN HALF the effort. [place] lifts, holds or supports trunk or limbs, but provides less than half the effort. 2-Substantial/Maximal Assistance-helper does MORE THAN HALF the effort. [place] lifts or holds trunk or limbs and provides more than half the effort. 2-Hvklpuhpo-qmiyku does ALL the effort. Patient does none of the effort to complete the activity. Or, the assistance of 2 or more helpers is required for the patient to complete the activity. If activity was not attempted, code reason: 7-Patient Refused. 9-Not Applicable-not attempted and the patient did not perform the activity before the current illness, exacerbation or injury. 10-Not Attempted due to Environmental Limitations-(lack of equipment, weather restraints, etc.). 88-Not Attempted due to Medical Conditions or Safety Concerns. Upper Body Dressing (QC): 1 (dependent for back brace.) Other Treatment OT/PT cotreat due to skill of 2 clinicians required which a rehabilitation teacher could not perform in order to coordinate UE/LEs, due to pt's limitations in strength, mobility, activity tolerance, transfers. OT focused on UE placement, ADLs, cues for sequencing and safety, PT focused on LE placement, mobility, transfers. Pt transferred supine to sit EOB, dependent assist x2. Max A sit to stand, then pt able to take a couple side steps towards HOB. Cues for UE placement with transfers, and education on log rolling. Pt returned supine, dependent x2. Post tx, pt laying in bed, call light in reach and all needs met. Education OT Patient Education: Correct positioning, Modified ADL techniques, Progress toward Goal/Update tx plan, Purpose of tx/functional activities Teaching Recipient: Patient Teaching Methods: Discussion Response to Teaching: Verbalize Understanding OT Short Term Goals Short Term Goals Time Frame: Sep 09, 2020 Toileting hygiene: 3 Shower/bathe self: 3 Upper body dressin Lower body dressin Putting on/taking off footwear: 3 OT Snf Goals Snf Goals Time Frame: September 25, 2020 Eating (QC): 6 Oral Hygiene (QC): 6 Toileting Hygiene (QC): 4 Shower/Bathe Self (QC): 4 Upper Body Dressing (QC): 5 Lower Body Dressing (QC): 4 On/Off Footwear (QC): 4 Additional Goals: 1-Demonstrate ADL Tasks, 2-Verbalize Understanding, 3- ImproveStrength/Babatunde 1=Demonstrate adherence to instructed precautions during ADL tasks. 2=Patient will verbalize/demonstrate understanding of assistive devices/modifications for ADL. 3=Patient will improve strength/tolerance for activity to enable patient to perform ADL's. OT Education/Plan Problem List/Assessment Assessment: Decreased Activ Tolerance, Decreased UE Strength, Dependent Transfers, Impaired Funct Balance, Impaired I ADL's, Impaired Self-Care Skills, Restricted Funct UE ROM Discharge Recommendations Plan/Recommendations: Continue POC Treatment Plan/Plan of Care Patient would benefit from OT for education, treatment and training to promote independence in ADL's, mobility, safety and/or upper extremity function for ADL's. Plan of Care: ADL Retraining, Functional Mobility, Group Exercise/Act as Ind, UE Funct Exercise/Act Treatment Duration: September 25, 2020 Frequency: At least 5 of 7 days/Wk (IRF) Estimated Hrs Per Day: 1.5 hours per day Rehab Potential: Guarded Time/GCodes Start Time: 13:30 Stop Time: 14:00 Total Time Billed (hr/min): 30 Billed Treatment Time 1, FA 2 YUNIEL GILBERT OT Aug 28, 2020 14:27
[2020-08-28] MEDS: CYCLOBENZAPRINE 10 MG (FLEXERIL) TAB PO PRN (14:37)
[2020-08-28 16:15] VITALS: BP 85/48
[2020-08-28 17:10] VITALS: BP 80/50
--- NOTE | 2020-08-28 17:18 | CONSULTATION REPORT ---
DATE OF SERVICE: 08/28/2020 ATTENDING PHYSICIAN: Dr. Degroot. SUMMARY: A 60-year-old white lady who had a lumbar laminectomy and fusion and had urinary retention. Catheter was reinserted. Because of that, the patient does say that at home, she used to have some trouble starting her stream and kind of weak. Her history and physical was reviewed. IMPRESSION: Postoperative urinary retention, possibly neurogenic secondary to surgery, recumbency, diabetes and pain medicines. PLAN: First, we will start her on Flomax daily. In about 3 days or so, we will give her a trial of voiding. If she fails, we will add Urecholine at that time. Plan was fully explained to the patient. Job ID: [id number] DocumentID: [id number] Dictated Date: 08/28/2020 13:43:57 Developer Designer Date: 08/28/2020 17:17:30 Dictated By: LIANNE VAZQUEZ MD
[2020-08-28] MEDS: TAMSULOSIN 0.4 MG (FLOMAX) CAP PO SCH (17:49)
[2020-08-28] MEDS ORDERED: TAMSULOSIN 0.4 MG (FLOMAX) CAP PO SCH (18:00)
[2020-08-28] MEDS: AMITRIPTYLINE 50 MG (ELAVIL) TAB PO SCH (21:40)
[2020-08-28] MEDS: GABAPENTIN 600 MG (NEURONTIN) TAB PO PRN (21:44)
[2020-08-28] MEDS: MICONAZOLE NITRATE 2% CRM 30 GM TP SCH (21:46)
[2020-08-29] VITALS (7 sets, daily range): BP systolic 72–153; BP diastolic 46–96
[2020-08-29] MEDS: CYCLOBENZAPRINE 10 MG (FLEXERIL) TAB PO PRN ×4 (03:38→21:14)
[2020-08-29] MEDS: LEVOTHYROXINE 100 MCG (LEVOTHROID) TAB PO SCH (06:34)
[2020-08-29] MEDS: LEVOTHYROXINE 75 MCG (LEVOTHROID) TABLET PO SCH (06:34)
[2020-08-29] MEDS: KCL 10 MEQ TAB (MICRO K) PO SCH (06:34)
[2020-08-29] MEDS: inSUlin ASPART (NovoLOG) 1 UNIT/0.01 ML (CHARGE PER UNIT) SC SCH ×3 (07:09→16:02)
[2020-08-29] MEDS: polyethylene glycoL POWDER 17 GM (MIRALAX) PACK PO SCH ×2 (08:11→21:15)
[2020-08-29] MEDS: DOCUSATE SODIUM 100 MG (COLACE) CAP PO SCH ×2 (08:11→21:15)
[2020-08-29] MEDS: NICOTINE 21 MG (NICODERM) PATCH TD SCH (08:11)
[2020-08-29] MEDS: fluCOnazole (DIFLUCAN) 100 MG TAB PO SCH (08:11)
[2020-08-29] MEDS: CARVEDILOL 12.5 MG (COREG) TABLET PO SCH ×3 (08:11→21:15)
[2020-08-29] MEDS: ASPIRIN E.C. 325 MG (ECOTRIN) TABLET PO SCH (08:11)
[2020-08-29] MEDS: PANTOPRAZOLE 40 MG (PROTONIX) TAB PO SCH (08:12)
[2020-08-29] MEDS: ONDANSETRON 4 MG (ZOFRAN) ORAL DISSOLVE TAB PO PRN (08:12)
[2020-08-29] MEDS: SENNA W/DOCUSATE (SENOKOT S) TABLET PO SCH ×2 (08:12→21:14)
[2020-08-29] MEDS: NICOTINE PATCH REMOVAL TP SCH (08:12)
[2020-08-29] MEDS: MICONAZOLE NITRATE 2% CRM 30 GM TP SCH (08:13)
[2020-08-29] MEDS ORDERED: NS IV 1000 ML 1,000 ML IV SCH (08:30)
--- NOTE | 2020-08-29 08:41 | Occ Therapy Progress Note ---
Therapy Progress Note 8:33 Pt in room, up in bed, eating breakfast after setup. Nursing said BP 84/54, which was increased from previous reading. Pending directions from physician regarding therapy so no therapy at this time. Visit ALIZA MILIAN OT Aug 29, 2020 08:41
--- NOTE | 2020-08-29 08:45 | Physical Therapy Progress Note ---
Therapy Progress Note PT & OT arrive for co-treat and Nurse advises she has notified Dr Degroot of pt's BP. It had increased to 84/54. Therapy will check back on pt later this morning to see if BP has improved. 1 visit, no tx rendered ELLEN LINARES FORECLOSURE FIELD INSPECTOR Aug 29, 2020 08:45
[2020-08-29 08:58] LABS: BASOPHILS # (AUTO) 0.1 10^3/uL (0.0-0.1); BASOPHILS % (AUTO) 1 % (0-10); EOSINOPHILS # (AUTO) 0.2 10^3/uL (0.0-0.3); EOSINOPHILS % (AUTO) 1 % (0-10); HEMATOCRIT 27 % (35-52); LYMPHOCYTES # (AUTO) 2.4 10^3/uL (1.0-4.0); LYMPHOCYTES % (AUTO) 19 % (12-44); MEAN CORPUSCULAR HEMOGLOBIN 32 pg (25-34); MEAN CORPUSCULAR HGB CONC 33 g/dL (32-36); MEAN CORPUSCULAR VOLUME 97 fL (80-99); MONOCYTES # (AUTO) 0.9 10^3/uL (0.0-1.0); MONOCYTES % (AUTO) 8 % (0-12); NEUTROPHILS # (AUTO) 8.7 10^3/uL (1.8-7.8); NEUTROPHILS % (AUTO) 71 % (42-75); PLATELET COUNT 401 10^3/uL (130-400); WHITE BLOOD COUNT 12.2 10^3/uL (4.3-11.0)
[2020-08-29 09:09] LABS: ALBUMIN 2.8 GM/DL (3.2-4.5); CHLORIDE 101 MMOL/L (98-107); POTASSIUM 3.8 MMOL/L (3.6-5.0); SODIUM 135 MMOL/L (135-145)
[2020-08-29 09:11] LABS: GLUCOSE 154 MG/DL (70-105); TOTAL PROTEIN 5.1 GM/DL (6.4-8.2)
[2020-08-29 09:12] LABS: CARBON DIOXIDE 25 MMOL/L (21-32)
[2020-08-29 09:13] LABS: BILIRUBIN,TOTAL 0.8 MG/DL (0.1-1.0)
[2020-08-29 09:15] LABS: ALKALINE PHOSPHATASE 107 U/L (40-136); CREATININE SERUM 0.66 MG/DL (0.60-1.30); GFR ESTIMATED > 60
[2020-08-29 09:16] LABS: BUN/CREATININE RATIO 14
[2020-08-29 09:18] LABS: ALANINE AMINOTRANSFERASE 24 U/L (0-55)
[2020-08-29] MEDS: IRON SUCROSE 200 MG/10 ML (VENOFER) VIAL IV SCH (09:20)
[2020-08-29] MEDS: NS IV 1000 ML 1,000 ML IV SCH ×2 (09:20→18:19)
[2020-08-29] MEDS: HYDROCORTISONE 100 MG/2 ML (Solu-CORTEF) VIAL IV SCH ×2 (09:40→14:28)
[2020-08-29] MEDS: FLUDROCORTISONE 0.1 MG (FLORINEF) TAB PO SCH (09:41)
[2020-08-29 09:55] LABS: BILIRUBIN,URINE 1+ (NEGATIVE); CLARITY,URINE SL CLOUDY; COLOR,URINE YELLOW; GLUCOSE, URINE (UA) NEGATIVE (NEGATIVE); KETONES,URINE NEGATIVE (NEGATIVE); LEUKOCYTE ESTERASE ,URINE 1+ (NEGATIVE); NITRITE,URINE NEGATIVE (NEGATIVE); PROTEIN,URINE TRACE (NEGATIVE)
[2020-08-29 10:05] LABS: BACTERIA,URINE FEW /HPF; WBC,URINE >100 /HPF; YEAST,URINE LARGE /HPF
--- NOTE | 2020-08-29 11:52 | Occupational Ther Daily Note ---
OT Current Status-Daily Note Subjective Pt seen in room, up in bed, agreeable to OT. Pt reported some discomfort in L shoulder when reaching or moving arm. Nursing notified. Also having some problems with back spasms. Pain not rated. Appearance Alert, cooperative ADL-Treatment Pt agreeable to ADLs, Needed a little help to pull herself up in bed due to back spasms and no weight bearing R UE. She was able to sit up to 60-70 degrees to help with sponge bath. She washed and dried face, chest, abdomen, arms and krissy front. Log rolled with cues to get back, bottom and legs washed, lifting her own legs to help. Nursing replaced TEDs and nancy wraps so bath could be completed. Pt also combed hair while seated up in bed. Physical therapy co-treat for rest of tx, due to patient physical limitations requiring the skill of two different therapists for mobility and self care. Pt log rolled to sit EOB with assistance but, once up, was able to gradually support herself sitting EOB. She was again limited by spasms but did not lean all the way back in bed. She needed min assist with R shirt sleeve over cast, then was able to place L arm and get shirt over head. Able to lift feet to get into pants legs but not lean over to place pants herself. Pt educ use of printer assistant and dressing stick but did not attempt today due to spasms. PT applied back brace with pt education, pt continuing to support herself at EOB. Attempted sit to stand to pull pants up. pt limited by back spasms. After back brace removed, she quickly threw herself into bed but did maintain pretty good back position. Got her own legs into bed. Pt logrolled to have pants pulled up. Pt able to brush teeth with setup while sitting up in bed. Much reassurance and encouragement provided and pt seemed pleased with progress today. Care transferred to PT. Therapy Code Descriptions/Definitions Functional [place] Measure: 0=Not Assessed/NA 4=Minimal Assistance 1=Total Assistance 5=Supervision or Setup 2=Maximal Assistance 6=Modified [place] 3=Moderate Assistance 7=Complete IndependenceSCALE: Activities may be completed with or without assistive devices. 2-Sufochdejd-cwczbpb completes the activity by him/herself with no assistance from a helper. 5-Set-up or Clean-up Assistance-helper sets up or cleans up; patient completes activity. [place] assists only prior to or following the activity. 4-Supervision or Touching Assistance-helper provides verbal cues and/or touching/steadying and/or contact guard assistance as patient completes activity. Assistance may be provided throughout the activity or intermittently. 3-Partial/Moderate Assistance-helper does LESS THAN HALF the effort. [place] lifts, holds or supports trunk or limbs, but provides less than half the effort. 2-Substantial/Maximal Assistance-helper does MORE THAN HALF the effort. [place] lifts or holds trunk or limbs and provides more than half the effort. 6-Wgbdvubeg-kgodlg does ALL the effort. Patient does none of the effort to complete the activity. Or, the assistance of 2 or more helpers is required for the patient to complete the activity. If activity was not attempted, code reason: 7-Patient Refused. 9-Not Applicable-not attempted and the patient did not perform the activity before the current illness, exacerbation or injury. 10-Not Attempted due to Environmental Limitations-(lack of equipment, weather restraints, etc.). 88-Not Attempted due to Medical Conditions or Safety Concerns. Oral Hygiene (QC): 5 Bathing Location: L Arm, R Arm, Chest, Abdomen, Perineal Area Shower/Bathe Self (QC): 3 Upper Body Dressing (QC): 3 (min assist) Lower Body Dressing (QC): 1 On/Off Footwear: 1 Education OT Patient Education: Correct positioning, Instructions don/doff splint/brace, Modified ADL techniques, Progress toward Goal/Update tx plan, Purpose of tx/functional activities, Transfer techniques, Use of adapted equipment Teaching Recipient: Patient Teaching Methods: Discussion Response to Teaching: Verbalize Understanding, Return Demonstration OT Short Term Goals Short Term Goals Time Frame: Sep 09, 2020 Toileting hygiene: 3 Shower/bathe self: 3 Upper body dressin Lower body dressin Putting on/taking off footwear: 3 OT Mcfp Goals Mcfp Goals Time Frame: September 25, 2020 Eating (QC): 6 Oral Hygiene (QC): 6 Toileting Hygiene (QC): 4 Shower/Bathe Self (QC): 4 Upper Body Dressing (QC): 5 Lower Body Dressing (QC): 4 On/Off Footwear (QC): 4 Additional Goals: 1-Demonstrate ADL Tasks, 2-Verbalize Understanding, 3- ImproveStrength/Bab[place]unde 1=Demonstrate adherence to instructed precautions during ADL tasks. 2=Patient will verbalize/demonstrate understanding of assistive devices/modifications for ADL. 3=Patient will improve strength/tolerance for activity to enable patient to perform ADL's. OT Education/Plan Discharge Recommendations Plan/Recommendations: Continue POC Treatment Plan/Plan of Care Patient would benefit from OT for education, treatment and training to promote independence in ADL's, mobility, safety and/or upper extremity function for ADL's. Plan of Care: ADL Retraining, Functional Mobility, Group Exercise/Act as Ind, UE Funct Exercise/Act Treatment Duration: September 25, 2020 Frequency: At least 5 of 7 days/Wk (IRF) Estimated Hrs Per Day: 1.5 hours per day Rehab Potential: Guarded Time/GCodes Start Time: 10:00 Stop Time: 11:30 Total Time Billed (hr/min): 90 Billed Treatment Time visit, 40 minutes ADL individual, 50 minutes ADL co-treat ALIZA MILIAN OT Aug 29, 2020 11:52
--- NOTE | 2020-08-29 12:47 | Physical Therapy Daily Note ---
PT Daily Note-Current Subjective Pt laying Supine in bed as she is just finishing sponge bath with OT assist. Pt agrees to PT/OT co-treat. Pain Location Body Site: Back Comment: Pt reports spasms & pain but doesn't rate. Mental Status Patient Orientation: Person, Place, Situation Attachments: Other-See Comments (Lumbar back brace, JOSE hoses & DANIA wrap) Transfers SCALE: Activities may be completed with or without assistive devices. 0-Xdggjardio-epsgizj completes the activity by him/herself with no assistance from a helper. 5-Set-up or Clean-up Assistance-helper sets up or cleans up; patient completes activity. [place] assists only prior to or following the activity. 4-Supervision or Touching Assistance-helper provides verbal cues and/or touching/steadying and/or contact guard assistance as patient completes acti vity. Assistance may be provided throughout the activity or intermittently. 3-Partial/Moderate Assistance-helper does LESS THAN HALF the effort. [place] lifts, holds or supports trunk or limbs, but provides less than half the effort. 2-Substantial/Maximal Assistance-helper does MORE THAN HALF the effort. [place] lifts or holds trunk or limbs and provides more than half the effort. 2-Omgyuhude-vtxpkr does ALL the effort. Patient does none of the effort to complete the activity. Or, the assistance of 2 or more helpers is required for the patient to complete the activity. If activity was not attempted, code reason: 7-Patient Refused. 9-Not Applicable-not attempted and the patient did not perform the activity before the current illness, exacerbation or injury. 10-Not Attempted due to Environmental Limitations-(lack of equipment, weather restraints, etc.). 88-Not Attempted due to Medical Conditions or Safety Concerns. Roll Left & Right (QC): 4 Sit to Lying (QC): 4 Lying to Sitting/Side of Bed(Q: 2 Sit to Stand (QC): 2 Weight Bearing Right Lower Extremity: Right Weight Bearing/Tolerated Left Lower Extremity: Left Weight Bearing/Tolerated NO WEIGHT BEARING RIGHT UPPER EXTREMITY Exercises Supine Ex: Ankle pumps, Quad Set, Rolling, Glut sets, Heel Slides, Scooting, Hip abd/add Supine Reps: 15 Treatments [id number]: PT& OT co-treat for rest of tx, due to patient physical limitations requiring the skill of two different therapists for mobility and self care. Pt log rolled to sit EOB with assistance but, once up, was able to gradually support herself sitting EOB. She was again limited by spasms but did not lean all the way back in bed. She needed min assist with R shirt sleeve over cast, then was able to place L arm and get shirt over head. Able to lift feet to get into pants legs but not lean over to place pants herself. Pt educ use of deputy prosecuting attorney and dressing stick but did not attempt today due to spasms. PT applied back br dania with pt education, pt continuing to support herself at EOB. Attempted sit to stand to pull pants up. pt limited by back spasms. After back brace removed, she quickly threw herself into bed but did maintain pretty good back position. Got her own legs into bed. Pt logrolled to have pants pulled up. Pt able to brush teeth with setup while sitting up in bed. Much reassurance and encouragement provided and pt seemed pleased with progress today. OT departs & PT continues tx. [id number]: Pt completes Supine EX (2 sets) with RB as needed. Pt is concerned with lack of friends & family visiting her at this time. SPOUTER reassured pt & tried to redirect. Pt is repositioned to comfort including scooting up in bed. All needs met, call light in hand. Assessment Current Status: Fair Progress Pain & spasms limit tx. PT Short Term Goals Short Term Goals Time Frame: Sep 04, 2020 Roll Left & Right: 3 Sit to lyin Lying to sitting on side of be: 3 Sit to stand: 3 Chair/rwk-pu-mqjxp transfer: 3 Toilet transfer: 3 Car transfer: 3 Walk 10 feet: 3 Walk 50 feet with two turns: 3 Walk 150 feet: 3 Walking 10ft on uneven surface: 3 1 step (curb): 3 4 steps: 3 Picking up objects: 88 PT Stone Setter Apprentice Goals Care Home Goals PT Care Home Goals Time Frame: Sep 18, 2020 Roll Left & Right (QC): 4 Sit to Lying (QC): 4 Lying-Sitting on Side/Bed(QC): 4 Sit to Stand (QC): 4 Chair/Tpc-qv-Zkxat Xfer(QC): 4 Toilet Transfer (QC): 4 Car Transfer (QC): 4 Does the Patient Walk: No and Walking Goal IS indicated Walk 10 feet (QC): 4 Walk 50ft with 2 Turns (QC): 4 Walk 150 ft (QC): 4 Walking 10ft on Uneven Surface: 4 1 Step (curb) (QC): 4 4 Steps (QC): 4 12 Steps (QC): 88 Picking up an Object (QC): 88 Wheel 50 feet with 2 turns (QC: 6 Wheel 150 feet: 6 PT Plan Problem List Problem List: Activity Tolerance, Functional Strength, Safety, Transfer Treatment/Plan Treatment Plan: Continue Plan of Care Treatment Plan: Bed Mobility, Education, Functional Activity Babatunde, Functional Strength, Group Therapy, Gait, Safety, Therapeutic Exercise, Transfers Treatment Duration: Sep 18, 2020 Frequency: At least 5 of 7 days/Wk (IRF) Estimated Hrs Per Day: 1.5 hours per day Patient and/or Family Agrees t: Yes Safety Risks/Education Patient Education: Transfer Techniques, Reviewed Precautions, Correct Positioning, Reviewed Don/Doff Brace, Safety Issues Teaching Recipient: Patient Teaching Methods: Discussion Response to Teaching: Verbalize Understanding, Reinforcement Needed Time/GCodes Time In: 1040 Time Out: 1210 Total Billed Treatment Time: 90 Total Billed Treatment 1, FA x4 (60m) & Ex (30m) Co-treat w/OT [id number] (50m) ELLEN LINARES PTA Aug 29, 2020 12:47
--- NOTE | 2020-08-29 13:39 | PM&R Progress Note ---
Subjective HPI/CC On Admission Date Seen by Provider: Aug 29, 2020 Time Seen by Provider: 12:40 Subjective/Events-last exam 08/29/20: Patient doing better today Was able to get on side of bed today on her own Pain more controlled UTI dx on UA so Cefepime started due to high risk for Pseudomonas as bacterial source Hypotension noted and she was asymptomatic like she was yesterday giving rise to assumption she has orthostasis and autonomic dysfunction due to DM Florinef ordered and JOSE and DANIA wraps on her legs Decreasing Coreg to 12.5 PO BID 08/28/20: Much improved status Multiple issues are addressed No BM for 3 weeks and started to move a bit with supp Vaginal yeast infection Wilson catheter maintained Dr Keen consulted Pain is an issue Hypoglycemia noted Review of Systems General: Fatigue Musculoskeletal: back pain Neurological: Weakness Focused Exam Lactate Level 08/28/20 06:03: Lactic Acid Level 1.02 08/29/20 08:49: Lactic Acid Level 0.82 Objective Exam Vital Signs Vital Signs Date Time Temp Pulse Resp B/P (MAP) Pulse Ox O2 Delivery O2 Flow Rate FiO2 08/29/20 09:51 78 108/63 (78) 08/29/20 09:00 Room Air 08/29/20 06:00 36.4 18 91 Capillary Refill : General Appearance: No Apparent Distress, WD/WN, Anxious, Chronically ill, Thin HEENT: PERRL/EOMI, Normal ENT Inspection, Pharynx Normal Neck: Full Range of Motion, Normal Inspection, Non Tender, Supple, Carotid Bruit Respiratory: Chest Non Tender, Lungs Clear, Normal Breath Sounds, No Accessory Muscle Use, No Respiratory Distress Cardiovascular: Regular Rate, Rhythm, No Edema, No Gallop, No JVD, No Murmur, Normal Peripheral Pulses Gastrointestinal: Normal Bowel Sounds, No Organomegaly, No Pulsatile Mass, Non Tender, Soft Back: Decreased Range of Motion, Muscle Spasm, Vertebral Tenderness Extremity: Normal Capillary Refill, Normal Inspection, Normal Range of Motion, Non Tender, No Calf Tenderness, No Pedal Edema Neurologic/Psychiatric: Alert, Oriented x3, No Motor/Sensory Deficits, Normal Mood/Affect, 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 FIM Transfers Therapy Code Descriptions/Definitions Functional [place] Measure: 0=Not Assessed/NA 4=Minimal Assistance 1=Total Assistance 5=Supervision or Setup 2=Maximal Assistance 6=Modified [place] 3=Moderate Assistance 7=Complete IndependenceSCALE: Activities may be completed with or without assistive devices. 4-Pgvmfrdnft-qeqdiqp completes the activity by him/herself with no assistance from a helper. 5-Set-up or Clean-up Assistance-helper sets up or cleans up; patient completes activity. [place] assists only prior to or following the activity. 4-Supervision or Touching Assistance-helper provides verbal cues and/or touching/steadying and/or contact guard assistance as patient completes activity. Assistance may be provided throughout the activity or intermittently. 3-Partial/Moderate Assistance-helper does LESS THAN HALF the effort. [place] lifts, holds or supports trunk or limbs, but provides less than half the effort. 2-Substantial/Maximal Assistance-helper does MORE THAN HALF the effort. [place] lifts or holds trunk or limbs and provides more than half the effort. 3-Jbxpnlmxh-qxrpxx does ALL the effort. Patient does none of the effort to complete the activity. Or, the assistance of 2 or more helpers is required for the patient to complete the activity. If activity was not attempted, code reason: 7-Patient Refused. 9-Not Applicable-not attempted and the patient did not perform the activity before the current illness, exacerbation or injury. 10-Not Attempted due to Environmental Limitations-(lack of equipment, weather restraints, etc.). 88-Not Attempted due to Medical Conditions or Safety Concerns. Roll Left to Right (QC): 4 Sit to Lying (QC): 4 Sit to Stand (QC): 2 Chair/Ydm-sp-Ijjtp Xfer(QC): 88 Car Transfer (QC): 88 Gait Training Does the Patient Walk?: No and Walking Goal IS indicated Walk 10 feet (QC): 88 Walk 50 ft with 2 Turns(QC): 88 Walk 150 ft (QC): 88 Walking 10ft/uneven surface-QC: 88 Wheelchair Training Wheel 50 ft with 2 turns (QC): 88 Wheel 150 ft (QC): 88 Stair Training 1 Step (curb) (QC): 88 4 Steps (QC): 88 12 Steps (QC): 88 Balance Picking up an Object (QC): 88 ADL-Treatment Eating (QC): 5 (set up) Oral Hygiene (QC): 5 Bathing Location: L Arm, R Arm, Chest, Abdomen, Perineal Area Shower/Bathe Self (QC): 3 Upper Body Dressing (QC): 3 (min assist) Lower Body Dressing (QC): 1 On/Off Footwear (QC): 1 Toileting Hygiene (QC): 1 (Assist x2 and assist with all parts.) Assessment/Plan Assessment and Plan Assess & Plan/Chief Complaint Status post fall with T12 burst fracture s/p laminectomy and fusion 08/24/2020 X- ray of the pelvis negative for acute osseous abnormality. Right wrist fracture Hypovitaminosis D: Continue ergocalciferol. Acute kidney injury: Resolved. Hypochloremic hyponatremia: Improved significantly. Hypophosphatemia: s/p Sodium phosphate 15 mmol x 1. Leukocytosis: Essential hypertension but hypotensive here at IRF so decreased Coreg and started Florinef and JOSE/DANIA to legs Mixed hyperlipidemia: Acquired hypothyroidism: Continue Synthroid. Diabetes mellitus type 2: Continued Lantus and lispro but holding long acting due to hypoglycemia GERD: Protonix. Mood disorder: Continue Elavil and Lexapro. ANALISA: Nocturnal CPAP. Yeast vaginitis Orthostasis placed on IVF and Florinef UTI Wilson cath required due to urinary retention consulting Dr Keen Plan: IRF protocol Pain control IVF 08/28/20: BM regimen Yeast treamtent Pain control Hold insulin 08/29/20: Florinef JOSE/DANIA wraps IVF Cefepime for UTI (1) Burst fracture of thoracic vertebra Status: Acute ASHLYN WINTERS DO Aug 29, 2020 13:38
[2020-08-29] MEDS: CEFEPIME INJECTION 1,000 MG in WATER (STERILE) FOR INJECTION 10 ML IV SCH ×2 (14:28→18:19)
[2020-08-29] MEDS: TAMSULOSIN 0.4 MG (FLOMAX) CAP PO SCH (18:19)
[2020-08-29] MEDS: AMITRIPTYLINE 50 MG (ELAVIL) TAB PO SCH (21:15)
[2020-08-30] MEDS: CEFEPIME INJECTION 1,000 MG in WATER (STERILE) FOR INJECTION 10 ML IV SCH ×4 (00:09→17:56)
[2020-08-30] MEDS: HYDROCORTISONE 100 MG/2 ML (Solu-CORTEF) VIAL IV SCH ×4 (00:09→22:21)
[2020-08-30] MEDS: inSUlin ASPART (NovoLOG) 1 UNIT/0.01 ML (CHARGE PER UNIT) SC SCH ×5 (00:09→22:23)
[2020-08-30] MEDS: MICONAZOLE NITRATE 2% CRM 30 GM TP SCH ×3 (00:10→22:26)
[2020-08-30] MEDS: GABAPENTIN 600 MG (NEURONTIN) TAB PO PRN ×2 (01:02→15:02)
[2020-08-30 06:00] VITALS: BP 136/91
[2020-08-30] MEDS: NS IV 1000 ML 1,000 ML IV SCH (06:32)
[2020-08-30] MEDS: CYCLOBENZAPRINE 10 MG (FLEXERIL) TAB PO PRN ×3 (06:33→20:38)
[2020-08-30] MEDS: LEVOTHYROXINE 100 MCG (LEVOTHROID) TAB PO SCH (06:36)
[2020-08-30] MEDS: LEVOTHYROXINE 75 MCG (LEVOTHROID) TABLET PO SCH (06:36)
[2020-08-30] MEDS: KCL 10 MEQ TAB (MICRO K) PO SCH (06:48)
--- NOTE | 2020-08-30 07:07 | PM&R Progress Note ---
Subjective HPI/CC On Admission Date Seen by Provider: Aug 30, 2020 Time Seen by Provider: 12:30 Subjective/Events-last exam 08/30/20: BP is much improved Patient feels good Wilson cath to remain until she is able to get out of bed Moving around in bed a lot today Supp did not work so giving fleets and if no results will give SSE HLIVF today Talked about left arm pain no trauma but will get xray tomorrow 08/29/20: Patient doing better today Was able to get on side of bed today on her own Pain more controlled UTI dx on UA so Cefepime started due to high risk for Pseudomonas as bacterial source Hypotension noted and she was asymptomatic like she was yesterday giving rise to assumption she has orthostasis and autonomic dysfunction due to DM Florinef ordered and JOSE and DANIA wraps on her legs Decreasing Coreg to 12.5 PO BID 08/28/20: Much improved status Multiple issues are addressed No BM for 3 weeks and started to move a bit with supp Vaginal yeast infection Wilson catheter maintained Dr Keen consulted Pain is an issue Hypoglycemia noted Review of Systems General: Fatigue, Malaise Musculoskeletal: arm pain, back pain Focused Exam Lactate Level 08/28/20 06:03: Lactic Acid Level 1.02 08/29/20 08:49: Lactic Acid Level 0.82 Objective Exam Vital Signs Vital Signs Date Time Temp Pulse Resp B/P (MAP) Pulse Ox O2 Delivery O2 Flow Rate FiO2 08/30/20 17:16 37.1 84 20 133/66 (88) 94 Room Air Capillary Refill : General Appearance: No Apparent Distress, WD/WN, Anxious, Chronically ill, Thin HEENT: PERRL/EOMI, Normal ENT Inspection, Pharynx Normal Neck: Full Range of Motion, Normal Inspection, Non Tender, Supple, Carotid Bruit Respiratory: Chest Non Tender, Lungs Clear, Normal Breath Sounds, No Accessory Muscle Use, No Respiratory Distress Cardiovascular: Regular Rate, Rhythm, No Edema, No Gallop, No JVD, No Murmur, Normal Peripheral Pulses Gastrointestinal: Normal Bowel Sounds, No Organomegaly, No Pulsatile Mass, Non Tender, Soft Back: Decreased Range of Motion, Muscle Spasm, Vertebral Tenderness Extremity: Normal Capillary Refill, Normal Inspection, Normal Range of Motion, Non Tender, No Calf Tenderness, No Pedal Edema Neurologic/Psychiatric: Alert, Oriented x3, No Motor/Sensory Deficits, Normal Mood/Affect, 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 FIM Transfers Therapy Code Descriptions/Definitions Functional [place] Measure: 0=Not Assessed/NA 4=Minimal Assistance 1=Total Assistance 5=Supervision or Setup 2=Maximal Assistance 6=Modified [place] 3=Moderate Assistance 7=Complete IndependenceSCALE: Activities may be completed with or without assistive devices. 4-Jcfbpyaaen-ktcgqle completes the activity by him/herself with no assistance from a helper. 5-Set-up or Clean-up Assistance-helper sets up or cleans up; patient completes activity. [place] assists only prior to or following the activity. 4-Supervision or Touching Assistance-helper provides verbal cues and/or touching/steadying and/or contact guard assistance as patient completes activity. Assistance may be provided throughout the activity or intermittently. 3-Partial/Moderate Assistance-helper does LESS THAN HALF the effort. [place] lifts, holds or supports trunk or limbs, but provides less than half the effort. 2-Substantial/Maximal Assistance-helper does MORE THAN HALF the effort. [place] lifts or holds trunk or limbs and provides more than half the effort. 3-Kxtcnamxv-cptequ does ALL the effort. Patient does none of the effort to complete the activity. Or, the assistance of 2 or more helpers is required for the patient to complete the activity. If activity was not attempted, code reason: 7-Patient Refused. 9-Not Applicable-not attempted and the patient did not perform the activity before the current illness, exacerbation or injury. 10-Not Attempted due to Environmental Limitations-(lack of equipment, weather restraints, etc.). 88-Not Attempted due to Medical Conditions or Safety Concerns. Roll Left to Right (QC): 4 Sit to Lying (QC): 4 Sit to Stand (QC): 2 Chair/Hqz-bz-Zifwn Xfer(QC): 88 Car Transfer (QC): 88 Gait Training Does the Patient Walk?: No and Walking Goal IS indicated Walk 10 feet (QC): 88 Walk 50 ft with 2 Turns(QC): 88 Walk 150 ft (QC): 88 Walking 10ft/uneven surface-QC: 88 Wheelchair Training Wheel 50 ft with 2 turns (QC): 88 Wheel 150 ft (QC): 88 Stair Training 1 Step (curb) (QC): 88 4 Steps (QC): 88 12 Steps (QC): 88 Balance Picking up an Object (QC): 88 ADL-Treatment Eating (QC): 5 (set up) Oral Hygiene (QC): 5 Bathing Location: L Arm, R Arm, Chest, Abdomen, Perineal Area Shower/Bathe Self (QC): 3 Upper Body Dressing (QC): 3 (min assist) Lower Body Dressing (QC): 1 On/Off Footwear (QC): 1 Toileting Hygiene (QC): 1 (Assist x2 and assist with all parts.) Assessment/Plan Assessment and Plan Assess & Plan/Chief Complaint Status post fall with T12 burst fracture s/p laminectomy and fusion 08/24/2020 X- ray of the pelvis negative for acute osseous abnormality. Right wrist fracture Hypovitaminosis D: Continue ergocalciferol. Acute kidney injury: Resolved. Hypochloremic hyponatremia: Improved significantly. Hypophosphatemia: s/p Sodium phosphate 15 mmol x 1. Leukocytosis: Essential hypertension but hypotensive here at IRF so decreased Coreg and star jose Florinef and JOSE/DANIA to legs Mixed hyperlipidemia: Acquired hypothyroidism: Continue Synthroid. Diabetes mellitus type 2: Continued Lantus and lispro but holding long acting due to hypoglycemia GERD: Protonix. Mood disorder: Continue Elavil and Lexapro. ANALISA: Nocturnal CPAP. Yeast vaginitis Orthostasis placed on IVF and Florinef UTI yeast placed on diflucan 08/30/20 Wilson cath required due to urinary retention consulting Dr Keen Plan: IRF protocol Pain control IVF 08/28/20: BM regimen Yeast treamtent Pain control Hold insulin 08/29/20: Florinef JOSE/DANIA wraps IVF Cefepime for UTI 08/30/20 Added Diflucan HLIVF (1) Burst fracture of thoracic vertebra Status: Acute ASHLYN WINTERS DO Aug 30, 2020 07:07
[2020-08-30] MEDS: FLUDROCORTISONE 0.1 MG (FLORINEF) TAB PO SCH (07:56)
[2020-08-30] MEDS: fluCOnazole (DIFLUCAN) 100 MG TAB PO SCH (07:56)
[2020-08-30] MEDS: BISACODYL 10 MG SUPP (DULCOLAX) PR PRN (07:56)
[2020-08-30] MEDS: polyethylene glycoL POWDER 17 GM (MIRALAX) PACK PO SCH ×2 (07:56→22:24)
[2020-08-30] MEDS: NICOTINE 21 MG (NICODERM) PATCH TD SCH (07:56)
[2020-08-30] MEDS: SENNA W/DOCUSATE (SENOKOT S) TABLET PO SCH ×2 (07:56→22:22)
[2020-08-30] MEDS: CARVEDILOL 12.5 MG (COREG) TABLET PO SCH ×2 (07:56→22:22)
[2020-08-30] MEDS: ASPIRIN E.C. 325 MG (ECOTRIN) TABLET PO SCH (07:56)
[2020-08-30] MEDS: NICOTINE PATCH REMOVAL TP SCH (07:57)
[2020-08-30] MEDS: DOCUSATE SODIUM 100 MG (COLACE) CAP PO SCH ×2 (07:57→22:22)
[2020-08-30] MEDS: PANTOPRAZOLE 40 MG (PROTONIX) TAB PO SCH (07:57)
--- NOTE | 2020-08-30 10:00 | Progress Note - Urology ---
Progress Note-Urology Progress Notes/Assess & Plan Progress/Assessment & Plan NOT AMBULATING WELL YET. TOLERATES FLOMAX WELL. TOV TOMORROW Final Diagnosis URINE RETENTION LIANNE VAZQUEZ MD Aug 30, 2020 10:00
[2020-08-30 17:16] VITALS: BP 133/66
[2020-08-30] MEDS: TAMSULOSIN 0.4 MG (FLOMAX) CAP PO SCH (17:56)
[2020-08-30 21:45] VITALS: BP 115/69
[2020-08-30] MEDS ORDERED: FLUCONAZOLE 200 MG/100 ML 100 ML IV ONE (21:49)
[2020-08-30] MEDS: MELATONIN 3 MG TABLET PO PRN (22:22)
[2020-08-30] MEDS: AMITRIPTYLINE 50 MG (ELAVIL) TAB PO SCH (22:23)
[2020-08-30] MEDS: CALCIUM CARBONATE 500 MG (TUMS) TAB.CHEW PO PRN (22:27)
[2020-08-30] MEDS: FLUCONAZOLE 200 MG/100 ML 50 ML, EMPTY IV BAG (PVC) 1 EA IV SCH ×2 (22:36)
[2020-08-31] MEDS: CEFEPIME INJECTION 1,000 MG in WATER (STERILE) FOR INJECTION 10 ML IV SCH ×4 (00:57→17:08)
[2020-08-31] MEDS: GABAPENTIN 600 MG (NEURONTIN) TAB PO PRN (01:01)
[2020-08-31 05:49] LABS: BASOPHILS % (AUTO) 0 % (0-10); EOSINOPHILS % (AUTO) 0 % (0-10); HEMATOCRIT 26 % (35-52); HEMOGLOBIN 8.5 g/dL (11.5-16.0); LYMPHOCYTES # (AUTO) 2.2 10^3/uL (1.0-4.0); LYMPHOCYTES % (AUTO) 12 % (12-44); MEAN CORPUSCULAR HEMOGLOBIN 32 pg (25-34); MEAN CORPUSCULAR HGB CONC 33 g/dL (32-36); MEAN CORPUSCULAR VOLUME 97 fL (80-99); MEAN PLATELET VOLUME 10.1 fL (9.0-12.2); MONOCYTES # (AUTO) 0.9 10^3/uL (0.0-1.0); MONOCYTES % (AUTO) 5 % (0-12); NEUTROPHILS # (AUTO) 14.8 10^3/uL (1.8-7.8); NEUTROPHILS % (AUTO) 82 % (42-75); PLATELET COUNT 440 10^3/uL (130-400)
[2020-08-31 06:00] VITALS: BP 123/82
[2020-08-31 06:10] LABS: HYPOCHROMASIA SLIGHT; LYMPHOCYTES % (MANUAL) 10 %; MONOCYTES % (MANUAL) 4 %; NEUTROPHILS % (MANUAL) 86 %; POIKILOCYTOSIS SLIGHT; POLYCHROMASIA SLIGHT
[2020-08-31 06:13] LABS: ALANINE AMINOTRANSFERASE 19 U/L (0-55); ALBUMIN 2.7 GM/DL (3.2-4.5); ALKALINE PHOSPHATASE 117 U/L (40-136); BILIRUBIN,TOTAL 0.5 MG/DL (0.1-1.0); BUN/CREATININE RATIO 16; CALCIUM 8.1 MG/DL (8.5-10.1); CARBON DIOXIDE 25 MMOL/L (21-32); CHLORIDE 104 MMOL/L (98-107); CREATININE SERUM 0.67 MG/DL (0.60-1.30); GFR ESTIMATED > 60; GLUCOSE 213 MG/DL (70-105); POTASSIUM 3.2 MMOL/L (3.6-5.0); SODIUM 137 MMOL/L (135-145); TOTAL PROTEIN 5.1 GM/DL (6.4-8.2)
[2020-08-31] MEDS: LEVOTHYROXINE 100 MCG (LEVOTHROID) TAB PO SCH (06:30)
[2020-08-31] MEDS: HYDROCORTISONE 100 MG/2 ML (Solu-CORTEF) VIAL IV SCH ×3 (06:30→22:16)
[2020-08-31] MEDS: KCL 10 MEQ TAB (MICRO K) PO SCH ×3 (06:31→17:07)
[2020-08-31] MEDS: LEVOTHYROXINE 75 MCG (LEVOTHROID) TABLET PO SCH (06:31)
[2020-08-31] MEDS: inSUlin ASPART (NovoLOG) 1 UNIT/0.01 ML (CHARGE PER UNIT) SC SCH ×4 (06:31→22:05)
[2020-08-31 07:55] VITALS: BP 126/79
--- NOTE | 2020-08-31 08:56 | Physical Therapy Daily Note ---
PT Daily Note-Current Subjective Patient reports she was doing better throughout the weekend with bed mobility. Patient reports spasms in LE are still presents, but not as intense today. Patient consents to therapy. Appearance Patient is seated upright in recliner, with tray table nearby, call button within reach, and all needs met. Back brace donned. Mental Status Patient Orientation: Person, Place, Time, Normal For Age Attachments: Wilson Catheter TLSO Transfers SCALE: Activities may be completed with or without assistive devices. 9-Zpwtscdhxn-iriyldy completes the activity by him/herself with no assistance from a helper. 5-Set-up or Clean-up Assistance-helper sets up or cleans up; patient completes activity. [place] assists only prior to or following the activity. 4-Supervision or Touching Assistance-helper provides verbal cues and/or touching/steadying and/or contact guard assistance as patient completes activity. Assistance may be provided throughout the activity or intermittently. 3-Partial/Moderate Assistance-helper does LESS THAN HALF the effort. [place] lifts, holds or supports trunk or limbs, but provides less than half the effort. 2-Substantial/Maximal Assistance-helper does MORE THAN HALF the effort. [place] lifts or holds trunk or limbs and provides more than half the effort. 8-Webuwsbts-wkjrds does ALL the effort. Patient does none of the effort to complete the activity. Or, the assistance of 2 or more helpers is required for the patient to complete the activity. If activity was not attempted, code reason: 7-Patient Refused. 9-Not Applicable-not attempted and the patient did not perform the activity before the current illness, exacerbation or injury. 10-Not Attempted due to Environmental Limitations-(lack of equipment, weather restraints, etc.). 88-Not Attempted due to Medical Conditions or Safety Concerns. Roll Left & Right (QC): 4 Lying to Sitting/Side of Bed(Q: 3 (min) Sit to Stand (QC): 3 (mod) Toilet Transfer (QC): 3 (min) Patient requires cueing to refrain from utilizing R UE Weight Bearing Right Lower Extremity: Right Weight Bearing/Tolerated Left Lower Extremity: Left Weight Bearing/Tolerated NO WEIGHT BEARING RIGHT UPPER EXTREMITY Gait Training Does the Patient Walk?: Yes Distance: 800', 100' x2 Walk 10 feet (QC): 4 Walk 50 ft with 2 Turns(QC): 4 Walk 150 ft (QC): 4 Gait Assistive Device: Walker Platform Patient was able to maintain reciprocal gait pattern that was smooth, stable, and at fair pace. Patient noted walking felt good on her back, and reported no LE spasms. Exercises Seated Therapy Exercises: Reaching activity (cones to practice seated weight shifts with back brace) Seated Reps: 10 (2 sets) Patient performed thoracic ROM for 5 rounds including A/P and M/L movements with back brace donned. Treatments LE strengthening, gait training, transfers, thoracic ROM Assessment Current Status: Good Progress Patient demonstrated good progress with functional transfers and overall gait distance. PT Short Term Goals Short Term Goals Time Frame: Sep 04, 2020 Roll Left & Right: 3 Sit to lyin Lying to sitting on side of be: 3 Sit to stand: 3 Chair/flj-aw-wftgf transfer: 3 Toilet transfer: 3 Car transfer: 3 Walk 10 feet: 3 Walk 50 feet with two turns: 3 Walk 150 feet: 3 Walking 10ft on uneven surface: 3 1 step (curb): 3 4 steps: 3 Picking up objects: 88 PT [facility] Goals [employer] Goals PT [facility] Goals Time Frame: Sep 18, 2020 Roll Left & Right (QC): 4 Sit to Lying (QC): 4 Lying-Sitting on Side/Bed(QC): 4 Sit to Stand (QC): 4 Chair/Udv-mr-Fjxga Xfer(QC): 4 Toilet Transfer (QC): 4 Car Transfer (QC): 4 Does the Patient Walk: No and Walking Goal IS indicated Walk 10 feet (QC): 4 Walk 50ft with 2 Turns (QC): 4 Walk 150 ft (QC): 4 Walking 10ft on Uneven Surface: 4 1 Step (curb) (QC): 4 4 Steps (QC): 4 12 Steps (QC): 88 Picking up an Object (QC): 88 Wheel 50 feet with 2 turns (QC: 6 Wheel 150 feet: 6 PT Plan Problem List Problem List: Activity Tolerance, Functional Strength, Safety, Balance, Gait, Transfer, Bed Mobility, ROM Treatment/Plan Treatment Plan: Continue Plan of Care Treatment Plan: Bed Mobility, Education, Functional Activity [place], Functional Strength, Group Therapy, Gait, Safety, Therapeutic Exercise, Transfers Treatment Duration: Sep 18, 2020 Frequency: At least 5 of 7 days/Wk (IRF) Estimated Hrs Per Day: 1.5 hours per day Patient and/or Family Agrees t: Yes Safety Risks/Education Patient Education: Gait Training, Transfer Techniques, Reviewed Precautions, Correct Positioning, Reviewed Don/Doff Brace, Safety Issues Teaching Recipient: Patient Teaching Methods: Demonstration, Discussion Response to Teaching: Verbalize Understanding, Return Demonstration, Reinforcement Needed Time/GCodes Time In: 0800 Time Out: 0900 Total Billed Treatment Time: 60 Total Billed Treatment 1 visit: GT: 15' FA: 30' EX: 15' BOB FANG PT Aug 31, 2020 08:56
[2020-08-31] MEDS: NICOTINE PATCH REMOVAL TP SCH (09:02)
--- NOTE | 2020-08-31 09:03 | Occupational Ther Daily Note ---
OT Current Status-Daily Note Subjective Pt agreeable to OT/PT cotreat. States has less muscle spasms on this date. Pt also reports she is having some difficulty with her memory, losing her train of thought as she is speaking. Mental Status/Objective Patient Orientation: Person, Place, Time, Situation ADL-Treatment Therapy Code Descriptions/Definitions Functional [place] Measure: 0=Not Assessed/NA 4=Minimal Assistance 1=Total Assistance 5=Supervision or Setup 2=Maximal Assistance 6=Modified [place] 3=Moderate Assistance 7=Complete IndependenceSCALE: Activities may be completed with or without assistive devices. 3-Uzqondlydc-jouvhni completes the activity by him/herself with no assistance from a helper. 5-Set-up or Clean-up Assistance-helper sets up or cleans up; patient completes activity. [place] assists only prior to or following the activity. 4-Supervision or Touching Assistance-helper provides verbal cues and/or touching/steadying and/or contact guard assistance as patient completes activity. Assistance may be provided throughout the activity or intermittently. 3-Partial/Moderate Assistance-helper does LESS THAN HALF the effort. [place] lifts, holds or supports trunk or limbs, but provides less than half the effort. 2-Substantial/Maximal Assistance-helper does MORE THAN HALF the effort. [place] lifts or holds trunk or limbs and provides more than half the effort. 8-Jfvzplika-jhwejo does ALL the effort. Patient does none of the effort to c omplete the activity. Or, the assistance of 2 or more helpers is required for the patient to complete the activity. If activity was not attempted, code reason: 7-Patient Refused. 9-Not Applicable-not attempted and the patient did not perform the activity before the current illness, exacerbation or injury. 10-Not Attempted due to Environmental Limitations-(lack of equipment, weather restraints, etc.). 88-Not Attempted due to Medical Conditions or Safety Concerns. Upper Body Dressing (QC): 2 (Max A with donning back brace with skilled instruction.) Toileting Hygiene (QC): 2 (Pt attempted to complete hygiene, assist for thoroughness. Pt did not have clothing to manage.) Other Treatment OT/PT cotreat due to skill of 2 clinicians required which a rehabilitation program manager could not perform in order to coordinate UE/LEs, to decrease fall risk, and due to pt's limitations in mobility, transfers, strength and activity tolerance. OT focused on UE placement, cues for sequencing and safety, and ADLs, PT focused on LE placement, gross overall movements, and transfers/ambulation. Pt transferred supine to sit EOB, OT dependently donned back brace. Pt then used R platform walker to perform functional mobility around [facility] common area/2nd floor. Pt states need to toilet, returning to her room and transferring onto toilet, pt completed toileting. R platform walker used for pt to return to gym and edge of mat. Pt performed functional reaching tasks with cones using LUE, and weight shifting/core balance activity seated. Pt returned to room, transferring to recliner. Post tx, pt seated in recliner, call light in reach and all needs met. Pt required cues for UE placement with transfers and instruction to maintain NWB RUE. Education OT Patient Education: Correct positioning, Energy conservation, Exercise program, Modified ADL techniques, Progress toward Goal/Update tx plan, Purpose of tx/functional activities, Rehab process Teaching Recipient: Patient Teaching Methods: Discussion Response to Teaching: Verbalize Understanding OT Short Term Goals Short Term Goals Time Frame: Sep 09, 2020 Toileting hygiene: 3 Shower/bathe self: 3 Upper body dressin Lower body dressin Putting on/taking off footwear: 3 OT Occupational Therapy Asst Goals [facility] Goals Time Frame: September 25, 2020 Eating (QC): 6 Oral Hygiene (QC): 6 Toileting Hygiene (QC): 4 Shower/Bathe Self (QC): 4 Upper Body Dressing (QC): 5 Lower Body Dressing (QC): 4 On/Off Footwear (QC): 4 Additional Goals: 1-Demonstrate ADL Tasks, 2-Verbalize Understanding, 3-ImproveStrength/[place] 1=Demonstrate adherence to instructed precautions during ADL tasks. 2=Patient will verbalize/demonstrate understanding of assistive devices/modifications for ADL. 3=Patient will improve strength/tolerance for activity to enable patient to perform ADL's. OT Education/Plan Problem List/Assessment Assessment: Decreased Activ Tolerance, Decreased UE Strength, Impaired Funct Balance, Impaired I ADL's, Impaired Self-Care Skills Discharge Recommendations Plan/Recommendations: Continue POC Treatment Plan/Plan of Care Patient would benefit from OT for education, treatment and training to promote independence in ADL's, mobility, safety and/or upper extremity function for ADL's. Plan of Care: ADL Retraining, Functional Mobility, Group Exercise/Act as Ind, UE Funct Exercise/Act Treatment Duration: September 25, 2020 Frequency: At least 5 of 7 days/Wk (IRF) Estimated Hrs Per Day: 1.5 hours per day Rehab Potential: Guarded Time/GCodes Start Time: 08:00 Stop Time: 09:00 Total Time Billed (hr/min): 60 Billed Treatment Time cotreat x60' 1, ADL (20'), FA 3 (40') YUNIEL GILBERT OT Aug 31, 2020 09:03
[2020-08-31] MEDS: NICOTINE 21 MG (NICODERM) PATCH TD SCH (09:04)
[2020-08-31] MEDS: PANTOPRAZOLE 40 MG (PROTONIX) TAB PO SCH (09:04)
[2020-08-31] MEDS: FLUDROCORTISONE 0.1 MG (FLORINEF) TAB PO SCH (09:04)
[2020-08-31] MEDS: ASPIRIN E.C. 325 MG (ECOTRIN) TABLET PO SCH (09:04)
[2020-08-31] MEDS: CARVEDILOL 12.5 MG (COREG) TABLET PO SCH ×2 (09:04→21:57)
[2020-08-31] MEDS: IRON SUCROSE 200 MG/10 ML (VENOFER) VIAL IV SCH (09:05)
[2020-08-31] MEDS: DOCUSATE SODIUM 100 MG (COLACE) CAP PO SCH ×2 (09:10→21:55)
[2020-08-31] MEDS: polyethylene glycoL POWDER 17 GM (MIRALAX) PACK PO SCH ×2 (09:11→21:55)
[2020-08-31] MEDS: SENNA W/DOCUSATE (SENOKOT S) TABLET PO SCH ×2 (09:12→21:55)
[2020-08-31] MEDS: MICONAZOLE NITRATE 2% CRM 30 GM TP SCH ×2 (09:13→22:20)
[2020-08-31] MEDS: FLUCONAZOLE 200 MG/100 ML 50 ML, EMPTY IV BAG (PVC) 1 EA IV SCH ×2 (09:19)
[2020-08-31] MEDS: CYCLOBENZAPRINE 10 MG (FLEXERIL) TAB PO PRN ×2 (09:19→18:10)
--- NOTE | 2020-08-31 10:24 | PM&R Progress Note ---
Subjective HPI/CC On Admission Date Seen by Provider: Aug 31, 2020 Time Seen by Provider: 10:30 Subjective/Events-last exam 08/31/20: Pt doing pretty well Was able to walk today Discontinue catheter soon Yeast UTI requiring Diflucan IV Left humerus and shoulder X-ray obtained Had a small BM after multiple attempts Antibiotics still on board Potassium 3.2 so changed the potassium to TID with meals Carafate initiated at her request, she has terrible reflux 08/30/20: BP is much improved Patient feels good Wilson cath to remain until she is able to get out of bed Moving around in bed a lot today Supp did not work so giving fleets and if no results will give SSE HLIVF today Talked about left arm pain no trauma but will get xray tomorrow 08/29/20: Patient doing better today Was able to get on side of bed today on her own Pain more controlled UTI dx on UA so Cefepime started due to high risk for Pseudomonas as bacterial source Hypotension noted and she was asymptomatic like she was yesterday giving rise to assumption she has orthostasis and autonomic dysfunction due to DM Nadeenf ordered and JOSE and DANIA wraps on her legs Decreasing Coreg to 12.5 PO BID 08/28/20: Much improved status Multiple issues are addressed No BM for 3 weeks and started to move a bit with supp Vaginal yeast infection Wilson catheter maintained Dr Keen consulted Pain is an issue Hypoglycemia noted Review of Systems General: Fatigue Neurological: Weakness Focused Exam Lactate Level 08/29/20 08:49: Lactic Acid Level 0.82 Objective Exam Vital Signs Vital Signs Date Time Temp Pulse Resp B/P (MAP) Pulse Ox O2 Delivery O2 Flow Rate FiO2 08/31/20 16:00 36.4 79 20 152/72 (98) 93 Room Air Capillary Refill : General Appearance: No Apparent Distress, WD/WN, Anxious, Chronically ill, Thin HEENT: PERRL/EOMI, Normal ENT Inspection, Pharynx Normal Neck: Full Range of Motion, Normal Inspection, Non Tender, Supple, Carotid Bruit Respiratory: Chest Non Tender, Lungs Clear, Normal Breath Sounds, No Accessory Muscle Use, No Respiratory Distress Cardiovascular: Regular Rate, Rhythm, No Edema, No Gallop, No JVD, No Murmur, Normal Peripheral Pulses Gastrointestinal: Normal Bowel Sounds, No Organomegaly, No Pulsatile Mass, Non Tender, Soft Back: Decreased Range of Motion, Muscle Spasm, Vertebral Tenderness Extremity: Normal Capillary Refill, Normal Inspection, Normal Range of Motion, Non Tender, No Calf Tenderness, No Pedal Edema Neurologic/Psychiatric: Alert, Oriented x3, No Motor/Sensory Deficits, Normal Mood/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 FIM Transfers Therapy Code Descriptions/Definitions Functional [place] Measure: 0=Not Assessed/NA 4=Minimal Assistance 1=Total Assistance 5=Supervision or Setup 2=Maximal Assistance 6=Modified [place] 3=Moderate Assistance 7=Complete IndependenceSCALE: Activities may be completed with or without assistive devices. 9-Nbruwkeirc-ppxyvwm completes the activity by him/herself with no assistance from a helper. 5-Set-up or Clean-up Assistance-helper sets up or cleans up; patient completes activity. [place] assists only prior to or following the activity. 4-Supervision or Touching Assistance-helper provides verbal cues and/or touching/steadying and/or contact guard assistance as patient completes activity. Assistance may be provided throughout the activity or intermittently. 3-Partial/Moderate Assistance-helper does LESS THAN HALF the effort. [place] lifts, holds or supports trunk or limbs, but provides less than half the effort. 2-Substantial/Maximal Assistance-helper does MORE THAN HALF the effort. [place] lifts or holds trunk or limbs and provides more than half the effort. 6-Vqdpiajjj-iahvsx does ALL the effort. Patient does none of the effort to complete the activity. Or, the assistance of 2 or more helpers is required for the patient to complete the activity. If activity was not attempted, code reason: 7-Patient Refused. 9-Not Applicable-not attempted and the patient did not perform the activity before the current illness, exacerbation or injury. 10-Not Attempted due to Environmental Limitations-(lack of equipment, weather restraints, etc.). 88-Not Attempted due to Medical Conditions or Safety Concerns. Roll Left to Right (QC): 4 Sit to Lying (QC): 4 Sit to Stand (QC): 3 (mod) Chair/Umo-cc-Pkfss Xfer(QC): 88 Car Transfer (QC): 88 Gait Training Does the Patient Walk?: Yes Distance: 800', 100' x2 Walk 10 feet (QC): 4 Walk 50 ft with 2 Turns(QC): 4 Walk 150 ft (QC): 4 Walking 10ft/uneven surface-QC: 88 Gait Assistive Device: Walker Platform Wheelchair Training Wheel 50 ft with 2 turns (QC): 88 Wheel 150 ft (QC): 88 Stair Training 1 Step (curb) (QC): 88 4 Steps (QC): 88 12 Steps (QC): 88 Balance Picking up an Object (QC): 88 ADL-Treatment Eating (QC): 5 (set up) Oral Hygiene (QC): 5 Bathing Location: L Arm, R Arm, Chest, Abdomen, Perineal Area Shower/Bathe Self (QC): 3 Upper Body Dressing (QC): 2 (Max A with donning back brace with skilled instruction.) Lower Body Dressing (QC): 1 On/Off Footwear (QC): 1 Toileting Hygiene (QC): 2 (Pt attempted to complete hygiene, assist for thoroughness. Pt did not have clothing to manage.) Assessment/Plan Assessment and Plan Assess & Plan/Chief Complaint Status post fall with T12 burst fracture s/p laminectomy and fusion 08/24/2020 X- ray of the pelvis negative for acute osseous abnormality. Right wrist fracture Hypovitaminosis D: Continue ergocalciferol. Acute kidney injury: Resolved. Hypochloremic hyponatremia: Improved significantly. Hypophosphatemia: s/p Sodium phosphate 15 mmol x 1. Leukocytosis: Essential hypertension but hypotensive here at [facility] so decreased Coreg and started Florinef and JOSE/DANIA to legs Mixed hyperlipidemia: Acquired hypothyroidism: Continue Synthroid. Diabetes mellitus type 2: Continued Lantus and lispro but holding long acting due to hypoglycemia GERD: Protonix. Mood disorder: Continue Elavil and Lexapro. ANALISA: Nocturnal CPAP. Yeast vaginitis Orthostasis placed on IVF and Florinef UTI yeast placed on diflucan 08/30/20 Wilson cath required due to urinary retention consulting Dr Keen Plan: [facility] protocol Pain control IVF 08/28/20: BM regimen Yeast treamtent Pain control Hold insulin 08/29/20: Florinef JOSE/DANIA wraps IVF Cefepime for UTI 08/30/20 Added Diflucan HLIVF 08/31/20: Monitor closely ROBERTO velasquez (1) Burst fracture of thoracic vertebra Status: Acute ASHLYN WINTERS DO Aug 31, 2020 10:24
--- NOTE | 2020-08-31 11:57 | Diagnostic Imaging Report ---
INDICATION: Arm pain. COMPARISON: None. FINDINGS: Two views of the left humerus were obtained and show no fractures, dislocations, or other acute bony abnormalities. Joint spaces are well maintained throughout. The soft tissues appear unremarkable. No radiopaque foreign bodies are identified. IMPRESSION: Unremarkable radiographic exam of the left humerus. Dictated by: Dictated on workstation # [id number]
[2020-08-31] MEDS: SUCRALFATE 1 GM (CARAFATE) TAB PO SCH ×3 (12:00→22:01)
[2020-08-31] MEDS: SCOPOLAMINE 1.5 MG (TRANSDERM-SCOP) PATCH TD SCH (12:02)
[2020-08-31] MEDS: [UNRECOGNIZED DRUG - REMARK] TP SCH (12:02)
--- NOTE | 2020-08-31 12:02 | Diagnostic Imaging Report ---
INDICATION: Left shoulder pain. COMPARISON: 08/21/2020 FINDINGS: 2 radiographic views of the left shoulder were obtained. Note is made of linear lucency within the mid to distal clavicular shaft. This however is felt to be artifact potentially related to nutrient foramen, as it has been present on prior studies of the chest. No other acute osseous abnormalities are seen. Joint spaces are maintained. No unexpected radiopaque foreign bodies are identified. Included portions of the left hemithorax show vascular congestion and prominence of pulmonary interstitium. IMPRESSION: 1. No acute fracture or dislocation of the left shoulder. 2. Vascular congestion and probable interstitial pulmonary edema. Correlation with dedicated radiographic views of the chest is recommended. Dictated by: Dictated on workstation # [id number]
--- NOTE | 2020-08-31 14:41 | Occupational Ther Daily Note ---
OT Current Status-Daily Note Subjective Pt laying in bed, states she thought she was done with therapy for the day. Mental Status/Objective Patient Orientation: Person, Place, Time, Situation ADL-Treatment Therapy Code Descriptions/Definitions Functional [place] Measure: 0=Not Assessed/NA 4=Minimal Assistance 1=Total Assistance 5=Supervision or Setup 2=Maximal Assistance 6=Modified [place] 3=Moderate Assistance 7=Complete IndependenceSCALE: Activities may be completed with or without assistive devices. 2-Lqhwhzgnrm-jfuttkr completes the activity by him/herself with no assistance from a helper. 5-Set-up or Clean-up Assistance-helper sets up or cleans up; patient completes activity. [place] assists only prior to or following the activity. 4-Supervision or Touching Assistance-helper provides verbal cues and/or touching/steadying and/or contact guard assistance as patient completes activity. Assistance may be provided throughout the activity or intermittently. 3-Partial/Moderate Assistance-helper does LESS THAN HALF the effort. [place] lifts, holds or supports trunk or limbs, but provides less than half the effort. 2-Substantial/Maximal Assistance-helper does MORE THAN HALF the effort. [place] lifts or holds trunk or limbs and provides more than half the effort. 1-Icekesffp-lajych does ALL the effort. Patient does none of the effort to complete the activity. Or, the assistance of 2 or more helpers is required for the patient to complete the activity. If activity was not attempted, code reason: 7-Patient Refused. 9-Not Applicable-not attempted and the patient did not perform the activity before the current illness, exacerbation or injury. 10-Not Attempted due to Environmental Limitations-(lack of equipment, weather restraints, etc.). 88-Not Attempted due to Medical Conditions or Safety Concerns. Other Treatment OT/PT cotreat due to skill of 2 clinicians required which a rehab manager could not perform in order to coordinate UE/LEs with tasks, decrease fall risk, and due to pt's limitations in strength, mobility, activity tolerance. OT focused on UE placement, cues for sequencing and safety, while PT focused on LE placement, gross overall movment, mobility/ambualtion. Pt laying in bed, thought she was done with therapy already. OT educated pt on rehab process, she verbalized understanding. Pt used platform walker to ambulate around [facility] common area and 2nd floor. Pt required cues to maintain NWB RUE and for UE positioning with transfers. Pt educated on bath bench vs bath chair but she declined attempting the transfer on this date due to muscle spasms. Pt returned to her room transferring back to bed. Cues to recall log roll techniques. Post tx, pt laying in bed, call light in reach and all needs met. Please refer to PT note for distance ambulated and QC scores. Education OT Patient Education: Correct positioning, Modified ADL techniques, Progress toward Goal/Update tx plan, Purpose of tx/functional activities, Rehab process, Safety issues, Transfer techniques Teaching Recipient: Patient Teaching Methods: Discussion Response to Teaching: Verbalize Understanding OT Short Term Goals Short Term Goals Time Frame: Sep 09, 2020 Toileting hygiene: 3 Shower/bathe self: 3 Upper body dressin Lower body dressin Putting on/taking off footwear: 3 OT Polymer Chemist Goals [facility] Goals Time Frame: September 25, 2020 Eating (QC): 6 Oral Hygiene (QC): 6 Toileting Hygiene (QC): 4 Shower/Bathe Self (QC): 4 Upper Body Dressing (QC): 5 Lower Body Dressing (QC): 4 On/Off Footwear (QC): 4 Additional Goals: 1-Demonstrate ADL Tasks, 2-Verbalize Understanding, 3- ImproveStrength/Babatunde 1=Demonstrate adherence to instructed precautions during ADL tasks. 2=Patient will verbalize/demonstrate understanding of assistive devices/modifications for ADL. 3=Patient will improve strength/tolerance for activity to enable patient to perform ADL's. OT Education/Plan Problem List/Assessment Assessment: Decreased Activ Tolerance, Decreased UE Strength, Impaired Funct Balance, Impaired I ADL's, Impaired Self-Care Skills, Restricted Funct UE ROM Discharge Recommendations Plan/Recommendations: Continue POC Treatment Plan/Plan of Care Patient would benefit from OT for education, treatment and training to promote independence in ADL's, mobility, safety and/or upper extremity function for ADL's. Plan of Care: ADL Retraining, Functional Mobility, Group Exercise/Act as Ind, UE Funct Exercise/Act Treatment Duration: September 25, 2020 Frequency: At least 5 of 7 days/Wk (IRF) Estimated Hrs Per Day: 1.5 hours per day Rehab Potential: Guarded Time/GCodes Start Time: 13:30 Stop Time: 14:00 Total Time Billed (hr/min): 30 Billed Treatment Time 1, FA 2 YUNIEL GILBERT OT Aug 31, 2020 14:41
--- NOTE | 2020-08-31 15:10 | Physical Therapy Daily Note ---
PT Daily Note-Current Subjective Patient was supine pre tx, hesitant to participate in therapy but consented. Gave unrated pain reports in back. Appearance Patient supine on R side post tx, with call button within reach and tray table beside her. All needs met. Mental Status Patient Orientation: Person, Place, Situation Attachments: Wilson Catheter Transfers SCALE: Activities may be completed with or without assistive devices. 0-Ifpnclhyza-ahenmum completes the activity by him/herself with no assistance from a helper. 5-Set-up or Clean-up Assistance-helper sets up or cleans up; patient completes activity. [place] assists only prior to or following the activity. 4-Supervision or Touching Assistance-helper provides verbal cues and/or touch ing/steadying and/or contact guard assistance as patient completes activity. Assistance may be provided throughout the activity or intermittently. 3-Partial/Moderate Assistance-helper does LESS THAN HALF the effort. [place] lifts, holds or supports trunk or limbs, but provides less than half the effort. 2-Substantial/Maximal Assistance-helper does MORE THAN HALF the effort. [place] lifts or holds trunk or limbs and provides more than half the effort. 3-Jgaqevhic-moeuhj does ALL the effort. Patient does none of the effort to complete the activity. Or, the assistance of 2 or more helpers is required for the patient to complete the activity. If activity was not attempted, code reason: 7-Patient Refused. 9-Not Applicable-not attempted and the patient did not perform the activity before the current illness, exacerbation or injury. 10-Not Attempted due to Environmental Limitations-(lack of equipment, weather restraints, etc.). 88-Not Attempted due to Medical Conditions or Safety Concerns. Roll Left & Right (QC): 4 (CGA) Sit to Lying (QC): 3 (min) Lying to Sitting/Side of Bed(Q: 3 (min) Sit to Stand (QC): 3 (mod) Cues to stand straight up seems to alleviate muscle spasm with sit <-> stand transfer. Weight Bearing Right Lower Extremity: Right Weight Bearing/Tolerated Left Lower Extremity: Left Weight Bearing/Tolerated NO WEIGHT BEARING RIGHT UPPER EXTREMITY Gait Training Does the Patient Walk?: Yes Distance: 1000' Walk 10 feet (QC): 4 Walk 50 ft with 2 Turns(QC): 4 Walk 150 ft (QC): 4 Gait Assistive Device: Walker Platform Patient is steady with gait, good balance overall. Experiences occasional LE spa sms Treatments Co-treated with OT secondary to patient impairments including fall risk, decreased strength, and pain limitations. PT focused on transfer training and gait while OT focused on maintaining UE precautions and positioning with all functional mobility. Assessment Current Status: Fair Progress Patient demonstrated adequate understanding of log roll technique with bed mobility. Still needs assistance and minor cueing with transfers, specifically making sure she does not bear weight through R UE. PT Short Term Goals Short Term Goals Time Frame: Sep 04, 2020 Roll Left & Right: 3 Sit to lyin Lying to sitting on side of be: 3 Sit to stand: 3 Chair/wwb-sn-oghqd transfer: 3 Toilet transfer: 3 Car transfer: 3 Walk 10 feet: 3 Walk 50 feet with two turns: 3 Walk 150 feet: 3 Walking 10ft on uneven surface: 3 1 step (curb): 3 4 steps: 3 Picking up objects: 88 PT Mcfp Goals Mcfp Goals PT Tree Expert Goals Time Frame: Sep 18, 2020 Roll Left & Right (QC): 4 Sit to Lying (QC): 4 Lying-Sitting on Side/Bed(QC): 4 Sit to Stand (QC): 4 Chair/Opw-lw-Shkcx Xfer(QC): 4 Toilet Transfer (QC): 4 Car Transfer (QC): 4 Does the Patient Walk: No and Walking Goal IS indicated Walk 10 feet (QC): 4 Walk 50ft with 2 Turns (QC): 4 Walk 150 ft (QC): 4 Walking 10ft on Uneven Surface: 4 1 Step (curb) (QC): 4 4 Steps (QC): 4 12 Steps (QC): 88 Picking up an Object (QC): 88 Wheel 50 feet with 2 turns (QC: 6 Wheel 150 feet: 6 PT Plan Problem List Problem List: Activity Tolerance, Functional Strength, Safety, Balance, Gait, Transfer, Bed Mobility, ROM Treatment/Plan Treatment Plan: Continue Plan of Care Treatment Plan: Bed Mobility, Education, Functional Activity Bab[place], Functional Strength, Group Therapy, Gait, Safety, Therapeutic Exercise, Transfers Treatment Duration: Sep 18, 2020 Frequency: At least 5 of 7 days/Wk (IRF) Estimated Hrs Per Day: 1.5 hours per day Patient and/or Family Agrees t: Yes Safety Risks/Education Patient Education: Gait Training, Transfer Techniques, Reviewed Precautions, Correct Positioning, Safety Issues Teaching Recipient: Patient Teaching Methods: Demonstration, Discussion Response to Teaching: Verbalize Understanding, Return Demonstration, Reinforcement Needed Continued to instruct patient ensuring she does not bear weight through R UE. Time/GCodes Time In: 1330 Time Out: 1400 Total Billed Treatment Time: 30 Total Billed Treatment 1 visit: FA: 30' BOB FANG PT Aug 31, 2020 15:09
[2020-08-31 16:00] VITALS: BP 152/72
[2020-08-31] MEDS: CALCIUM CARBONATE 500 MG (TUMS) TAB.CHEW PO PRN (16:03)
[2020-08-31] MEDS: TAMSULOSIN 0.4 MG (FLOMAX) CAP PO SCH (17:07)
[2020-08-31 21:50] VITALS: BP 173/85
[2020-08-31] MEDS: AMITRIPTYLINE 50 MG (ELAVIL) TAB PO SCH (21:57)
[2020-08-31] MEDS: MELATONIN 3 MG TABLET PO PRN (21:57)
[2020-09-01] MEDS: CEFEPIME INJECTION 1,000 MG in WATER (STERILE) FOR INJECTION 10 ML IV SCH ×4 (00:08→17:31)
[2020-09-01] MEDS: CALCIUM CARBONATE 500 MG (TUMS) TAB.CHEW PO PRN (00:14)
--- NOTE | 2020-09-01 05:30 | PM&R Progress Note ---
Subjective HPI/CC On Admission Date Seen by Provider: Sep 01, 2020 Time Seen by Provider: 08:30 Subjective/Events-last exam 09/01/20: Pt doing a lot better today DC Pollock catheter Improved on transfers WBC 18.5, procalcitonin and lactic acid is normal Hgb 8.6 IV Venofer is maintained 08/31/20: Pt doing pretty well Was able to walk today Discontinue catheter soon Yeast UTI requiring Diflucan IV Left humerus and shoulder X-ray obtained Had a small BM after multiple attempts Antibiotics still on board Potassium 3.2 so changed the potassium to TID with meals Carafate initiated at her request, she has terrible reflux 08/30/20: BP is much improved Patient feels good Pollock cath to remain until she is able to get out of bed Moving around in bed a lot today Supp did not work so giving fleets and if no results will give SSE HLIVF today Talked about left arm pain no trauma but will get xray tomorrow 08/29/20: Patient doing better today Was able to get on side of bed today on her own Pain more controlled UTI dx on UA so Cefepime started due to high risk for Pseudomonas as bacterial source Hypotension noted and she was asymptomatic like she was yesterday giving rise to assumption she has orthostasis and autonomic dysfunction due to DM Leslie ordered and JOSE and DANIA wraps on her legs Decreasing Coreg to 12.5 PO BID 08/28/20: Much improved status Multiple issues are addressed No BM for 3 weeks and started to move a bit with supp Vaginal yeast infection Pollock catheter maintained Dr Keen consulted Pain is an issue Hypoglycemia noted Review of Systems General: Fatigue, Malaise Musculoskeletal: back pain Focused Exam Lactate Level 09/01/20 05:28: Lactic Acid Level 1.73 Objective Exam Vital Signs Vital Signs Date Time Temp Pulse Resp B/P (MAP) Pulse Ox O2 Delivery O2 Flow Rate FiO2 09/01/20 21:00 91 Room Air 09/01/20 20:55 83 18 180/87 (118) 09/01/20 16:22 36.0 Capillary Refill : General Appearance: No Apparent Distress, WD/WN, Anxious, Chronically ill, Thin HEENT: PERRL/EOMI, Normal ENT Inspection, Pharynx Normal Neck: Full Range of Motion, Normal Inspection, Non Tender, Supple, Carotid Bruit Respiratory: Chest Non Tender, Lungs Clear, Normal Breath Sounds, No Accessory Muscle Use, No Respiratory Distress Cardiovascular: Regular Rate, Rhythm, No Edema, No Gallop, No JVD, No Murmur, Normal Peripheral Pulses Gastrointestinal: Normal Bowel Sounds, No Organomegaly, No Pulsatile Mass, Non Tender, Soft Back: Decreased Range of Motion, Muscle Spasm, Vertebral Tenderness Extremity: Normal Capillary Refill, Normal Inspection, Normal Range of Motion, Non Tender, No Calf Tenderness, No Pedal Edema Neurologic/Psychiatric: Alert, Oriented x3, No Motor/Sensory Deficits, Normal Mood/Affect, configuration manager II-XII Norm as Tested, Abnormal Gait, Motor Weakness (lower legs) Skin: Normal Color, Warm/Dry Lymphatic: No Adenopathy Results/Procedures Lab Patient resulted labs reviewed. FIM Transfers Therapy Code Descriptions/Definitions Functional [place] Measure: 0=Not Assessed/NA 4=Minimal Assistance 1=Total Assistance 5=Supervision or Setup 2=Maximal Assistance 6=Modified [place] 3=Moderate Assistance 7=Complete IndependenceSCALE: Activities may be completed with or without assistive devices. 8-Titrnwifxn-zmxsjry completes the activity by him/herself with no assistance from a helper. 5-Set-up or Clean-up Assistance-helper sets up or cleans up; patient completes activity. [place] assists only prior to or following the activity. 4-Supervision or Touching Assistance-helper provides verbal cues and/or touching/steadying and/or contact guard assistance as patient completes activity. Assistance may be provided throughout the activity or intermittently. 3-Partial/Moderate Assistance-helper does LESS THAN HALF the effort. [place] lifts, holds or supports trunk or limbs, but provides less than half the effort. 2-Substantial/Maximal Assistance-helper does MORE THAN HALF the effort. [place] lifts or holds trunk or limbs and provides more than half the effort. 3-Yonpedoum-clupxb does ALL the effort. Patient does none of the effort to complete the activity. Or, the assistance of 2 or more helpers is required for the patient to complete the activity. If activity was not attempted, code reason: 7-Patient Refused. 9-Not Applicable-not attempted and the patient did not perform the activity before the current illness, exacerbation or injury. 10-Not Attempted due to Environmental Limitations-(lack of equipment, weather restraints, etc.). 88-Not Attempted due to Medical Conditions or Safety Concerns. Roll Left to Right (QC): 4 (CGA) Sit to Lying (QC): 3 (min) Sit to Stand (QC): 3 (mod) Chair/Mlf-un-Jjulp Xfer(QC): 88 Car Transfer (QC): 88 Gait Training Does the Patient Walk?: Yes Distance: 1000' Walk 10 feet (QC): 4 Walk 50 ft with 2 Turns(QC): 4 Walk 150 ft (QC): 4 Walking 10ft/uneven surface-QC: 88 Gait Assistive Device: Walker Platform Wheelchair Training Wheel 50 ft with 2 turns (QC): 88 Wheel 150 ft (QC): 88 Stair Training 1 Step (curb) (QC): 88 4 Steps (QC): 88 12 Steps (QC): 88 Balance Picking up an Object (QC): 88 ADL-Treatment Eating (QC): 5 (set up) Oral Hygiene (QC): 5 Bathing Location: L Arm, R Arm, Chest, Abdomen, Perineal Area Shower/Bathe Self (QC): 3 Upper Body Dressing (QC): 2 (Max A with donning back brace with skilled instruction.) Lower Body Dressing (QC): 1 On/Off Footwear (QC): 1 Toileting Hygiene (QC): 2 (Pt attempted to complete hygiene, assist for thoroughness. Pt did not have clothing to manage.) Assessment/Plan Assessment and Plan Assess & Plan/Chief Complaint Status post fall with T12 burst fracture s/p laminectomy and fusion 08/24/2020 X- ray of the pelvis negative for acute osseous abnormality. Right wrist fracture Hypovitaminosis D: Continue ergocalciferol. Acute kidney injury: Resolved. Hypochloremic hyponatremia: Improved significantly. Hypophosphatemia: s/p Sodium phosphate 15 mmol x 1. Leukocytosis: Essential hypertension but hypotensive here at IRF so decreased Coreg and started Florinef and JOSE/DANIA to legs Mixed hyperlipidemia: Acquired hypothyroidism: Continue Synthroid. Diabetes mellitus type 2: Continued Lantus and lispro but holding long acting due to hypoglycemia GERD: Protonix. Mood disorder: Continue Elavil and Lexapro. ANALISA: Nocturnal CPAP. Yeast vaginitis Orthostasis placed on IVF and Florinef UTI yeast placed on diflucan 08/30/20 Pollock cath required due to urinary retention consulting Dr Keen Plan: IRF protocol Pain control IVF 08/28/20: BM regimen Yeast treamtent Pain control Hold insulin 08/29/20: Florinef JOSE/DANIA wraps IVF Cefepime for UTI 08/30/20 Added Diflucan HLIVF 08/31/20: Monitor closely DC pollock soon 09/01/20: DC pollock Diflucan Monitor closely (1) Burst fracture of thoracic vertebra Status: Acute ASHLYN WINTERS DO Sep 01, 2020 05:30
[2020-09-01 05:44] LABS: BASOPHILS % (AUTO) 0 % (0-10); EOSINOPHILS % (AUTO) 0 % (0-10); HEMATOCRIT 26 % (35-52); HEMOGLOBIN 8.6 g/dL (11.5-16.0); LYMPHOCYTES # (AUTO) 2.4 10^3/uL (1.0-4.0); LYMPHOCYTES % (AUTO) 13 % (12-44); MEAN CORPUSCULAR HEMOGLOBIN 32 pg (25-34); MEAN CORPUSCULAR HGB CONC 33 g/dL (32-36); MEAN CORPUSCULAR VOLUME 97 fL (80-99); MEAN PLATELET VOLUME 9.8 fL (9.0-12.2); MONOCYTES % (AUTO) 6 % (0-12); NEUTROPHILS # (AUTO) 14.6 10^3/uL (1.8-7.8); NEUTROPHILS % (AUTO) 79 % (42-75); PLATELET COUNT 462 10^3/uL (130-400); WHITE BLOOD COUNT 18.5 10^3/uL (4.3-11.0)
[2020-09-01] MEDS: CYCLOBENZAPRINE 10 MG (FLEXERIL) TAB PO PRN ×3 (05:52→21:01)
[2020-09-01 05:53] LABS: ALBUMIN 2.7 GM/DL (3.2-4.5); CHLORIDE 100 MMOL/L (98-107); POTASSIUM 3.4 MMOL/L (3.6-5.0); SODIUM 137 MMOL/L (135-145)
[2020-09-01] MEDS: LEVOTHYROXINE 100 MCG (LEVOTHROID) TAB PO SCH (05:53)
[2020-09-01] MEDS: SUCRALFATE 1 GM (CARAFATE) TAB PO SCH ×4 (05:53→21:00)
[2020-09-01] MEDS: LEVOTHYROXINE 75 MCG (LEVOTHROID) TABLET PO SCH (05:54)
[2020-09-01 05:56] LABS: GLUCOSE 242 MG/DL (70-105); TOTAL PROTEIN 5.1 GM/DL (6.4-8.2)
[2020-09-01 05:57] LABS: CARBON DIOXIDE 26 MMOL/L (21-32)
[2020-09-01 05:58] LABS: BILIRUBIN,TOTAL 0.5 MG/DL (0.1-1.0)
[2020-09-01 05:59] LABS: ALKALINE PHOSPHATASE 146 U/L (40-136)
[2020-09-01 06:00] LABS: CREATININE SERUM 0.72 MG/DL (0.60-1.30); GFR ESTIMATED > 60
[2020-09-01 06:01] LABS: BUN/CREATININE RATIO 17
[2020-09-01 06:02] LABS: ALANINE AMINOTRANSFERASE 25 U/L (0-55)
[2020-09-01] MEDS: HYDROCORTISONE 100 MG/2 ML (Solu-CORTEF) VIAL IV SCH (06:17)
[2020-09-01] MEDS: inSUlin ASPART (NovoLOG) 1 UNIT/0.01 ML (CHARGE PER UNIT) SC SCH ×4 (06:18→21:00)
[2020-09-01 06:45] VITALS: BP 162/79
[2020-09-01 08:00] VITALS: BP 180/92
[2020-09-01] MEDS: ASPIRIN E.C. 325 MG (ECOTRIN) TABLET PO SCH (09:14)
[2020-09-01] MEDS: PANTOPRAZOLE 40 MG (PROTONIX) TAB PO SCH (09:15)
[2020-09-01] MEDS: CARVEDILOL 12.5 MG (COREG) TABLET PO SCH ×2 (09:15→21:00)
[2020-09-01] MEDS: NICOTINE 21 MG (NICODERM) PATCH TD SCH (09:16)
[2020-09-01] MEDS: DOCUSATE SODIUM 100 MG (COLACE) CAP PO SCH ×2 (09:17→21:13)
[2020-09-01] MEDS: SENNA W/DOCUSATE (SENOKOT S) TABLET PO SCH ×2 (09:18→21:14)
[2020-09-01] MEDS: KCL 10 MEQ TAB (MICRO K) PO SCH ×3 (09:25→17:36)
[2020-09-01] MEDS: FLUCONAZOLE 200 MG/100 ML 50 ML, EMPTY IV BAG (PVC) 1 EA IV SCH ×2 (09:29)
[2020-09-01] MEDS: polyethylene glycoL POWDER 17 GM (MIRALAX) PACK PO SCH ×2 (09:31→21:13)
[2020-09-01] MEDS: NICOTINE PATCH REMOVAL TP SCH (09:36)
--- NOTE | 2020-09-01 09:55 | Progress Note - Urology ---
Progress Note-Urology Progress Notes/Assess & Plan Progress/Assessment & Plan AMBULATING BETTER. TOV Final Diagnosis RETENTION LIANNE VAZQUEZ MD Sep 01, 2020 09:55
--- NOTE | 2020-09-01 10:05 | Occupational Ther Daily Note ---
OT Current Status-Daily Note Subjective Pt laying in bed, agreeable to OT Tx with focus on ADLs. Declines showering due to back pain but agreeable to sponge bath ADL-Treatment Therapy Code Descriptions/Definitions Functional [place] Measure: 0=Not Assessed/NA 4=Minimal Assistance 1=Total Assistance 5=Supervision or Setup 2=Maximal Assistance 6=Modified [place] 3=Moderate Assistance 7=Complete IndependenceSCALE: Activities may be completed with or without assistive devices. 9-Alhlengwwc-qzxoiav completes the activity by him/herself with no assistance from a helper. 5-Set-up or Clean-up Assistance-helper sets up or cleans up; patient completes activity. [place] assists only prior to or following the activity. 4-Supervision or Touching Assistance-helper provides verbal cues and/or touching/steadying and/or contact guard assistance as patient completes act ivity. Assistance may be provided throughout the activity or intermittently. 3-Partial/Moderate Assistance-helper does LESS THAN HALF the effort. [place] lifts, holds or supports trunk or limbs, but provides less than half the effort. 2-Substantial/Maximal Assistance-helper does MORE THAN HALF the effort. [place] lifts or holds trunk or limbs and provides more than half the effort. 3-Mtzpxanus-mbfueo does ALL the effort. Patient does none of the effort to complete the activity. Or, the assistance of 2 or more helpers is required for the patient to complete the activity. If activity was not attempted, code reason: 7-Patient Refused. 9-Not Applicable-not attempted and the patient did not perform the activity before the current illness, exacerbation or injury. 10-Not Attempted due to Environmental Limitations-(lack of equipment, weather restraints, etc.). 88-Not Attempted due to Medical Conditions or Safety Concerns. Eating (QC): 6 Shower/Bathe Self (QC): 3 (Min A to wash buttocks, pt able to wash all other parts seated, using long handled sponge as needed) Upper Body Dressing (QC): 2 (Min A with anchor tack puller shirt. Dependent with back brace.) Lower Body Dressing (QC): 2 (Assist with threading LLE using AE, assist with pant hike in stand. Pt able to thread RLE using AE.) On/Off Footwear: 2 (Pt able to doff socks using AE. Assist with donning bilateral gripper socks using sock aide) Other Treatment Pt laying in bed, agreeable to sponge bath. Pt indicates need to toilet, transferred supine to sit EOB. OT dependently donned back brace for pt. Pt used R platform walker to perform functional mobility into bathroom and onto BSC over toilet. Pt had urge to toilet, but unable to have BM. Pt then transferred to w/c to complete sponge bath at sink. OT educated pt on AE for lower body dressing/bathing. Pt reports increased back pain and muscle spasms throughout tx, but does not verbalize pain rating. Pt completed dressing at w/c, then used FWW to return to EOB and supine with SBA. Post tx, pt laying in bed, call light in reach and all needs met. Education OT Patient Education: Correct positioning, Modified ADL techniques, Progress toward Goal/Update tx plan, Purpose of tx/functional activities, Rehab process, Safety issues, Transfer techniques, Use of adapted equipment Teaching Recipient: Patient Teaching Methods: Discussion Response to Teaching: Verbalize Understanding OT Short Term Goals Short Term Goals Time Frame: Sep 09, 2020 Toileting hygiene: 3 Shower/bathe self: 3 Upper body dressin Lower body dressin Putting on/taking off footwear: 3 OT Correction Goals Tread Builder Goals Time Frame: September 25, 2020 Eating (QC): 6 Oral Hygiene (QC): 6 Toileting Hygiene (QC): 4 Shower/Bathe Self (QC): 4 Upper Body Dressing (QC): 5 Lower Body Dressing (QC): 4 On/Off Footwear (QC): 4 Additional Goals: 1-Demonstrate ADL Tasks, 2-Verbalize Understanding, 3- ImproveStrength/Babatunde 1=Demonstrate adherence to instructed precautions during ADL tasks. 2=Patient will verbalize/demonstrate understanding of assistive devices/modifications for ADL. 3=Patient will improve strength/tolerance for activity to enable patient to perform ADL's. OT Education/Plan Problem List/Assessment Assessment: Decreased Activ Tolerance, Decreased UE Strength, Impaired Funct Balance, Impaired I ADL's, Impaired Self-Care Skills Discharge Recommendations Plan/Recommendations: Continue POC Treatment Plan/Plan of Care Patient would benefit from OT for education, treatment and training to promote independence in ADL's, mobility, safety and/or upper extremity function for ADL's. Plan of Care: ADL Retraining, Functional Mobility, Group Exercise/Act as Ind, UE Funct Exercise/Act Treatment Duration: September 25, 2020 Frequency: At least 5 of 7 days/Wk (IRF) Estimated Hrs Per Day: 1.5 hours per day Rehab Potential: Guarded Time/GCodes Start Time: 08:00 Stop Time: 09:00 Total Time Billed (hr/min): 60 Billed Treatment Time 1, ADL 4 YUNIEL GILBERT OT Sep 01, 2020 10:05
--- NOTE | 2020-09-01 11:00 | Physical Therapy Daily Note ---
PT Daily Note-Current Subjective Reports once she gets up she does pretty good and states getting up the hardest part. Pt states she is sore today from yesterdays Rx. Pt agrees to PT. Pain Location Body Site: Back Comment: Pt reports pain but does not rate Mental Status Patient Orientation: Person, Place, Time, Situation Attachments: Other-See Comments (mask while out of room) Transfers SCALE: Activities may be completed with or without assistive devices. 6-Fevbdcfggl-dnevjeo completes the activity by him/herself with no assistance from a helper. 5-Set-up or Clean-up Assistance-helper sets up or cleans up; patient completes activity. [place] assists only prior to or following the activity. 4-Supervision or Touching Assistance-helper provides verbal cues and/or touching/steadying and/or contact guard assistance as patient completes activity. Assistance may be provided throughout the activity or intermittently. 3-Partial/Moderate Assistance-helper does LESS THAN HALF the effort. [place] lifts, holds or supports trunk or limbs, but provides less than half the effort. 2-Substantial/Maximal Assistance-helper does MORE THAN HALF the effort. [place] lifts or holds trunk or limbs and provides more than half the effort. 6-Uxsyhpusw-zrfkdu does ALL the effort. Patient does none of the effort to complete the activity. Or, the assistance of 2 or more helpers is required for the patient to complete the activity. If activity was not attempted, code reason: 7-Patient Refused. 9-Not Applicable-not attempted and the patient did not perform the activity before the current illness, exacerbation or injury. 10-Not Attempted due to Environmental Limitations-(lack of equipment, weather restraints, etc.). 88-Not Attempted due to Medical Conditions or Safety Concerns. Sit to Lying (QC): 4 Lying to Sitting/Side of Bed(Q: 4 (pt uses bedrails) Sit to Stand (QC): 4 Toilet Transfer (QC): 4 Weight Bearing Right Lower Extremity: Right Weight Bearing/Tolerated Left Lower Extremity: Left Weight Bearing/Tolerated NO WEIGHT BEARING RIGHT UPPER EXTREMITY Gait Training Does the Patient Walk?: Yes Distance: 350' Walk 10 feet (QC): 5 Walk 50 ft with 2 Turns(QC): 4 Walk 150 ft (QC): 5 Gait Persons Needed: 1 Gait Assistive Device: Walker Platform Pt uses platform WW to amb and amb w/ short step length. Pt has some difficulty w/ turns due to NWB on RUE. Treatments Pt amb 350' from room down the valdes to the windows and back towards room twice. TF to BR after walking. Pt returns to bed and declined going to chair. Assessment Current Status: Good Progress Pt reports pain and needs encouragement to participate in Rx. PT Short Term Goals Short Term Goals Time Frame: Sep 04, 2020 Roll Left & Right: 3 Sit to lyin Lying to sitting on side of be: 3 Sit to stand: 3 Chair/tps-dy-aswdn transfer: 3 Toilet transfer: 3 Car transfer: 3 Walk 10 feet: 3 Walk 50 feet with two turns: 3 Walk 150 feet: 3 Walking 10ft on uneven surface: 3 1 step (curb): 3 4 steps: 3 Picking up objects: 88 PT Fpc Goals Fpc Goals PT Fruit Inspector Goals Time Frame: Sep 18, 2020 Roll Left & Right (QC): 4 Sit to Lying (QC): 4 Lying-Sitting on Side/Bed(QC): 4 Sit to Stand (QC): 4 Chair/Agh-fq-Ovclt Xfer(QC): 4 Toilet Transfer (QC): 4 Car Transfer (QC): 4 Does the Patient Walk: No and Walking Goal IS indicated Walk 10 feet (QC): 4 Walk 50ft with 2 Turns (QC): 4 Walk 150 ft (QC): 4 Walking 10ft on Uneven Surface: 4 1 Step (curb) (QC): 4 4 Steps (QC): 4 12 Steps (QC): 88 Picking up an Object (QC): 88 Wheel 50 feet with 2 turns (QC: 6 Wheel 150 feet: 6 PT Plan Problem List Problem List: Activity Tolerance, Transfer Treatment/Plan Treatment Plan: Continue Plan of Care Treatment Plan: Bed Mobility, Education, Functional Activity Bab[place]unde, Functional Strength, Group Therapy, Gait, Safety, Therapeutic Exercise, Transfers Treatment Duration: Sep 18, 2020 Frequency: At least 5 of 7 days/Wk (IRF) Estimated Hrs Per Day: 1.5 hours per day Patient and/or Family Agrees t: Yes Safety Risks/Education Patient Education: Reviewed Precautions, Reviewed Don/Doff Brace Teaching Recipient: Patient Teaching Methods: Demonstration, Discussion Response to Teaching: Verbalize Understanding, Return Demonstration Time/GCodes Time In: 1015 Time Out: 1115 Total Billed Treatment Time: 60 Total Billed Treatment 1, GT x 2 (30m), FA x 2(30m) ELLEN LINARES AMMUNITION OFFICER Sep 01, 2020 11:00
[2020-09-01] MEDS: MICONAZOLE NITRATE 2% CRM 30 GM TP SCH ×2 (11:25→21:09)
--- NOTE | 2020-09-01 12:09 | Occupational Ther Daily Note ---
OT Current Status-Daily Note Subjective Pt laying in bed, states she just got back to bed and comfortable from PT. OT educated pt on the rehab process, pt agreeable to tx after moderate encouragement. Mental Status/Objective Patient Orientation: Person, Place, Time, Situation ADL-Treatment Therapy Code Descriptions/Definitions Functional [place] Measure: 0=Not Assessed/NA 4=Minimal Assistance 1=Total Assistance 5=Supervision or Setup 2=Maximal Assistance 6=Modified [place] 3=Moderate Assistance 7=Complete IndependenceSCALE: Activities may be completed with or without assistive devices. 1-Uvqfdfpyar-rbxuycl completes the activity by him/herself with no assistance from a helper. 5-Set-up or Clean-up Assistance-helper sets up or cleans up; patient completes activity. [place] assists only prior to or following the activity. 4-Supervision or Touching Assistance-helper provides verbal cues and/or touching/steadying and/or contact guard assistance as patient completes activity. Assistance may be provided throughout the activity or intermittently. 3-Partial/Moderate Assistance-helper does LESS THAN HALF the effort. [place] lifts, holds or supports trunk or limbs, but provides less than half the effort. 2-Substantial/Maximal Assistance-helper does MORE THAN HALF the effort. [place] lifts or holds trunk or limbs and provides more than half the effort. 6-Mijxavfjr-fudhcg does ALL the effort. Patient does none of the effort to complete the activity. Or, the assistance of 2 or more helpers is required for the patient to complete the activity. If activity was not attempted, code reason: 7-Patient Refused. 9-Not Applicable-not attempted and the patient did not perform the activity before the current illness, exacerbation or injury. 10-Not Attempted due to Environmental Limitations-(lack of equipment, weather restraints, etc.). 88-Not Attempted due to Medical Conditions or Safety Concerns. Upper Body Dressing (QC): 2 (Max A with back brace.) Other Treatment Pt laying in bed, transferred supine to sit EOB with SBA. OT assisted pt with d onning back brace, encouraging pt to assist as much as possible. Pt indicates unable to do straps over her shoulders due to L shoulder pain. OT encouraged pt to try to complete as able, as pt needs to be independent with brace at discharge. Pt verbalized understanding but continues to indicate she is unable to do straps. OT assisted with initial strap at waist, and clasps over her shoulders. Pt able to complete side straps around waist with cues to locate straps. Pt then used R platform walker to ambulate to therapy gym, seated rest break. Pt stood to complete ring arc with LUE crossing midline, seated rest break after task. Pt returned to room using platform walker, mod A sit to stand. Pt educated on UE placement with each sit <-> stand transfer. Pt up in recliner post tx, call light in reach and all needs met. Education OT Patient Education: Correct positioning, Modified ADL techniques, Progress toward Goal/Update tx plan, Purpose of tx/functional activities, Rehab process, Safety issues, Transfer techniques Teaching Recipient: Patient Teaching Methods: Discussion Response to Teaching: Verbalize Understanding OT Short Term Goals Short Term Goals Time Frame: Sep 09, 2020 Toileting hygiene: 3 Shower/bathe self: 3 Upper body dressin Lower body dressin Putting on/taking off footwear: 3 OT Usp Goals Usp Goals Time Frame: September 25, 2020 Eating (QC): 6 Oral Hygiene (QC): 6 Toileting Hygiene (QC): 4 Shower/Bathe Self (QC): 4 Upper Body Dressing (QC): 5 Lower Body Dressing (QC): 4 On/Off Footwear (QC): 4 Additional Goals: 1-Demonstrate ADL Tasks, 2-Verbalize Understanding, 3- ImproveStrength/Bab[place]unde 1=Demonstrate adherence to instructed precautions during ADL tasks. 2=Patient will verbalize/demonstrate understanding of assistive devices/modifications for ADL. 3=Patient will improve strength/tolerance for activity to enable patient to perform ADL's. OT Education/Plan Problem List/Assessment Assessment: Decreased Activ Tolerance, Decreased UE Strength, Impaired Funct Balance, Impaired I ADL's, Impaired Self-Care Skills, Restricted Funct UE ROM Discharge Recommendations Plan/Recommendations: Continue POC Treatment Plan/Plan of Care Patient would benefit from OT for education, treatment and training to promote independence in ADL's, mobility, safety and/or upper extremity function for ADL's. Plan of Care: ADL Retraining, Functional Mobility, Group Exercise/Act as Ind, UE Funct Exercise/Act Treatment Duration: September 25, 2020 Frequency: At least 5 of 7 days/Wk (IRF) Estimated Hrs Per Day: 1.5 hours per day Rehab Potential: Guarded Time/GCodes Start Time: 11:25 Stop Time: 11:55 Total Time Billed (hr/min): 30 Billed Treatment Time 1, FA 2 YUNIEL GILBERT OT Sep 01, 2020 12:09
--- NOTE | 2020-09-01 15:12 | Physical Therapy Daily Note ---
PT Daily Note-Current Subjective Pt was emotional upon arrival and pt was concerned that therapy didn't truly understand the extent of her pain. Pt agrees to supine exs for PT. Pt states pain was 10+ during lunch. Pain Numeric Pain Scale: 8 Location Body Site: Back Pain Description: Throbbing Comment: Also had tailbone pain but did not rate Mental Status Patient Orientation: Person, Place, Time, Situation Attachments: Other-See Comments (Lumbar back brace) Transfers SCALE: Activities may be completed with or without assistive devices. 6-Obftrtieua-tqvckuk completes the activity by him/herself with no assistance from a helper. 5-Set-up or Clean-up Assistance-helper sets up or cleans up; patient completes activity. [place] assists only prior to or following the activity. 4-Supervision or Touching Assistance-helper provides verbal cues and/or touching/steadying and/or contact guard assistance as patient completes activity. Assistance may be provided throughout the activity or intermittently. 3-Partial/Moderate Assistance-helper does LESS THAN HALF the effort. [place] lifts, holds or supports trunk or limbs, but provides less than half the effort. 2-Substantial/Maximal Assistance-helper does MORE THAN HALF the effort. [place] lifts or holds trunk or limbs and provides more than half the effort. 1-Lmuhbefvh-tmxlnw does ALL the effort. Patient does none of the effort to complete the activity. Or, the assistance of 2 or more helpers is required for the patient to complete the activity. If activity was not attempted, code reason: 7-Patient Refused. 9-Not Applicable-not attempted and the patient did not perform the activity before the current illness, exacerbation or injury. 10-Not Attempted due to Environmental Limitations-(lack of equipment, weather restraints, etc.). 88-Not Attempted due to Medical Conditions or Safety Concerns. Roll Left & Right (QC): 5 Weight Bearing Right Lower Extremity: Right Weight Bearing/Tolerated Left Lower Extremity: Left Weight Bearing/Tolerated NO WEIGHT BEARING RIGHT UPPER EXTREMITY Exercises Supine Ex: Ankle pumps, Quad Set, Heel Slides Supine Reps: 12 Treatments Pt begins Rx emotional and TILE MECHANIC HELPER listens to pt concerns regarding pain management and support after discharge. Pt rolled from sidelying to supine and performed supine exs. Assessment Current Status: Good Progress Rolling from sidelying to supine takes pt an extended amount of time but can be completed w/ SBA. Pt seemed distracted while performing supine exs and needed redirection to continue participation. PT Short Term Goals Short Term Goals Time Frame: Sep 04, 2020 Roll Left & Right: 3 Sit to lyin Lying to sitting on side of be: 3 Sit to stand: 3 Chair/znf-jt-kjtaa transfer: 3 Toilet transfer: 3 Car transfer: 3 Walk 10 feet: 3 Walk 50 feet with two turns: 3 Walk 150 feet: 3 Walking 10ft on uneven surface: 3 1 step (curb): 3 4 steps: 3 Picking up objects: 88 PT Key Account Executive Goals Longterm Goals PT Longterm Goals Time Frame: Sep 18, 2020 Roll Left & Right (QC): 4 Sit to Lying (QC): 4 Lying-Sitting on Side/Bed(QC): 4 Sit to Stand (QC): 4 Chair/Dvd-ir-Riwte Xfer(QC): 4 Toilet Transfer (QC): 4 Car Transfer (QC): 4 Does the Patient Walk: No and Walking Goal IS indicated Walk 10 feet (QC): 4 Walk 50ft with 2 Turns (QC): 4 Walk 150 ft (QC): 4 Walking 10ft on Uneven Surface: 4 1 Step (curb) (QC): 4 4 Steps (QC): 4 12 Steps (QC): 88 Picking up an Object (QC): 88 Wheel 50 feet with 2 turns (QC: 6 Wheel 150 feet: 6 PT Plan Problem List Problem List: Activity Tolerance Treatment/Plan Treatment Plan: Continue Plan of Care Treatment Plan: Bed Mobility, Education, Functional Activity Babatunde, Functional Strength, Group Therapy, Gait, Safety, Therapeutic Exercise, Transfers Treatment Duration: Sep 18, 2020 Frequency: At least 5 of 7 days/Wk (IRF) Estimated Hrs Per Day: 1.5 hours per day Patient and/or Family Agrees t: Yes Safety Risks/Education Patient Education: Correct Positioning, Disease Process Teaching Recipient: Patient Teaching Methods: Demonstration, Discussion Response to Teaching: Verbalize Understanding, Return Demonstration Time/GCodes Time In: 1330 Time Out: 1400 Total Billed Treatment Time: 30 Total Billed Treatment 1, FA (15m), EX (15m) ELLEN LINARES TILE MECHANIC HELPER Sep 01, 2020 15:11
[2020-09-01 16:22] VITALS: BP 166/85
[2020-09-01] MEDS: GABAPENTIN 600 MG (NEURONTIN) TAB PO PRN (17:31)
[2020-09-01] MEDS: TAMSULOSIN 0.4 MG (FLOMAX) CAP PO SCH (17:36)
[2020-09-01 20:55] VITALS: BP 180/87
[2020-09-01] MEDS: AMITRIPTYLINE 50 MG (ELAVIL) TAB PO SCH (21:00)
[2020-09-02] MEDS: CEFEPIME INJECTION 1,000 MG in WATER (STERILE) FOR INJECTION 10 ML IV SCH ×2 (00:16→06:11)
[2020-09-02] MEDS: inSUlin ASPART (NovoLOG) 1 UNIT/0.01 ML (CHARGE PER UNIT) SC SCH ×4 (06:00→21:00)
[2020-09-02 06:03] VITALS: BP 164/74
[2020-09-02] MEDS: LEVOTHYROXINE 100 MCG (LEVOTHROID) TAB PO SCH (06:12)
[2020-09-02] MEDS: LEVOTHYROXINE 75 MCG (LEVOTHROID) TABLET PO SCH (06:12)
[2020-09-02] MEDS: SUCRALFATE 1 GM (CARAFATE) TAB PO SCH ×4 (06:12→21:58)
[2020-09-02] MEDS: CYCLOBENZAPRINE 10 MG (FLEXERIL) TAB PO PRN ×2 (06:13→21:58)
[2020-09-02 08:00] VITALS: BP 175/82
--- NOTE | 2020-09-02 09:07 | PM&R Progress Note ---
Subjective HPI/CC On Admission Date Seen by Provider: Sep 02, 2020 Time Seen by Provider: 09:15 Subjective/Events-last exam 09/02/20: Pt doing pretty well Walking around much better Voiding 500 CCs had 125 on bladder scan but the straight cath later this morning obtained 700 CCs Urecholine started BP 170/80 so restarted Lisinopril and Amlodipine Decreasing Levemir because her sugar was 83 09/01/20: Pt doing a lot better today DC Pollock catheter Improved on transfers WBC 18.5, procalcitonin and lactic acid is normal Hgb 8.6 IV Venofer is maintained 08/31/20: Pt doing pretty well Was able to walk today Discontinue catheter soon Yeast UTI requiring Diflucan IV Left humerus and shoulder X-ray obtained Had a small BM after multiple attempts Antibiotics still on board Potassium 3.2 so changed the potassium to TID with meals Carafate initiated at her request, she has terrible reflux 08/30/20: BP is much improved Patient feels good Pollock cath to remain until she is able to get out of bed Moving around in bed a lot today Supp did not work so giving fleets and if no results will give SSE HLIVF today Talked about left arm pain no trauma but will get xray tomorrow 08/29/20: Patient doing better today Was able to get on side of bed today on her own Pain more controlled UTI dx on UA so Cefepime started due to high risk for Pseudomonas as bacterial source Hypotension noted and she was asymptomatic like she was yesterday giving rise to assumption she has orthostasis and autonomic dysfunction due to DM Florinef ordered and JOSE and DANIA wraps on her legs Decreasing Coreg to 12.5 PO BID 08/28/20: Much improved status Multiple issues are addressed No BM for 3 weeks and started to move a bit with supp Vaginal yeast infection Pollock catheter maintained Dr Keen consulted Pain is an issue Hypoglycemia noted Review of Systems General: Fatigue, Malaise Musculoskeletal: back pain Focused Exam Lactate Level 09/01/20 05:28: Lactic Acid Level 1.73 Objective Exam Vital Signs Vital Signs Date Time Temp Pulse Resp B/P (MAP) Pulse Ox O2 Delivery O2 Flow Rate FiO2 09/02/20 21:48 96 Room Air 09/02/20 19:43 36.5 88 18 122/68 (86) Capillary Refill : General Appearance: No Apparent Distress, WD/WN, Anxious, Chronically ill, Thin HEENT: PERRL/EOMI, Normal ENT Inspection, Pharynx Normal Neck: Full Range of Motion, Normal Inspection, Non Tender, Supple, Carotid Bruit Respiratory: Chest Non Tender, Lungs Clear, Normal Breath Sounds, No Accessory Muscle Use, No Respiratory Distress Cardiovascular: Regular Rate, Rhythm, No Edema, No Gallop, No JVD, No Murmur, Normal Peripheral Pulses Gastrointestinal: Normal Bowel Sounds, No Organomegaly, No Pulsatile Mass, Non Tender, Soft Back: Decreased Range of Motion, Muscle Spasm, Vertebral Tenderness Extremity: Normal Capillary Refill, Normal Inspection, Normal Range of Motion, Non Tender, No Calf Tenderness, No Pedal Edema Neurologic/Psychiatric: Alert, Oriented x3, No Motor/Sensory Deficits, Normal Mood/Affect, able bodied watchman II-XII Norm as Tested, Abnormal Gait, Motor Weakness (lower legs) Skin: Normal Color, Warm/Dry Lymphatic: No Adenopathy Results/Procedures Lab Patient resulted labs reviewed. FIM Transfers Therapy Code Descriptions/Definitions Functional [place] Measure: 0=Not Assessed/NA 4=Minimal Assistance 1=Total Assistance 5=Supervision or Setup 2=Maximal Assistance 6=Modified [place] 3=Moderate Assistance 7=Complete IndependenceSCALE: Activities may be completed with or without assistive devices. 4-Ntafmisqhc-gtaaptl completes the activity by him/herself with no assistance from a helper. 5-Set-up or Clean-up Assistance-helper sets up or cleans up; patient completes activity. [place] assists only prior to or following the activity. 4-Supervision or Touching Assistance-helper provides verbal cues and/or touching/steadying and/or contact guard assistance as patient completes activity. Assistance may be provided throughout the activity or intermittently. 3-Partial/Moderate Assistance-helper does LESS THAN HALF the effort. [place] lifts, holds or supports trunk or limbs, but provides less than half the effort. 2-Substantial/Maximal Assistance-helper does MORE THAN HALF the effort. [place] lifts or holds trunk or limbs and provides more than half the effort. 2-Mvwrtjscy-jvauyb does ALL the effort. Patient does none of the effort to complete the activity. Or, the assistance of 2 or more helpers is required for the patient to complete the activity. If activity was not attempted, code reason: 7-Patient Refused. 9-Not Applicable-not attempted and the patient did not perform the activity before the current illness, exacerbation or injury. 10-Not Attempted due to Environmental Limitations-(lack of equipment, weather restraints, etc.). 88-Not Attempted due to Medical Conditions or Safety Concerns. Roll Left to Right (QC): 5 Sit to Lying (QC): 4 Sit to Stand (QC): 4 Chair/Etd-bk-Mmowo Xfer(QC): 88 Car Transfer (QC): 88 Gait Training Does the Patient Walk?: Yes Distance: 350' Walk 10 feet (QC): 5 Walk 50 ft with 2 Turns(QC): 4 Walk 150 ft (QC): 5 Walking 10ft/uneven surface-QC: 88 Gait Persons Needed: 1 Gait Assistive Device: Walker Platform Wheelchair Training Wheel 50 ft with 2 turns (QC): 88 Wheel 150 ft (QC): 88 Stair Training 1 Step (curb) (QC): 88 4 Steps (QC): 88 12 Steps (QC): 88 Balance Picking up an Object (QC): 88 ADL-Treatment Eating (QC): 6 Oral Hygiene (QC): 5 Bathing Location: L Arm, R Arm, Chest, Abdomen, Perineal Area Shower/Bathe Self (QC): 3 (Min A to wash buttocks, pt able to wash all other parts seated, using long handled sponge as needed) Upper Body Dressing (QC): 2 (Max A with back brace.) Lower Body Dressing (QC): 2 (Assist with threading LLE using AE, assist with pant hike in stand. Pt able to thread RLE using AE.) On/Off Footwear (QC): 2 (Pt able to doff socks using AE. Assist with donning bilateral gripper socks using sock aide) Toileting Hygiene (QC): 2 (Pt attempted to complete hygiene, assist for thoroughness. Pt did not have clothing to manage.) Assessment/Plan Assessment and Plan Assess & Plan/Chief Complaint Status post fall with T12 burst fracture s/p laminectomy and fusion 08/24/2020 X- ray of the pelvis negative for acute osseous abnormality. Right wrist fracture Hypovitaminosis D: Continue ergocalciferol. Acute kidney injury: Resolved. Hypochloremic hyponatremia: Improved significantly. Hypophosphatemia: s/p Sodium phosphate 15 mmol x 1. Leukocytosis: Essential hypertension but hypotensive here at IRF so decreased Coreg and started Florinef and JOSE/DANIA to legs Mixed hyperlipidemia: Acquired hypothyroidism: Continue Synthroid. Diabetes mellitus type 2: Continued Lantus and lispro but holding long acting due to hypoglycemia GERD: Protonix. Mood disorder: Continue Elavil and Lexapro. ANALISA: Nocturnal CPAP. Yeast vaginitis Orthostasis placed on IVF and Florinef UTI yeast placed on diflucan 08/30/20 Pollock cath required due to urinary retention consulting Dr Keen Plan: IRF protocol Pain control IVF 08/28/20: BM regimen Yeast treamtent Pain control Hold insulin 08/29/20: Florinef JOSE/DANIA wraps IVF Cefepime for UTI 08/30/20 Added Diflucan HLIVF 08/31/20: Monitor closely DC pollock soon 09/01/20: DC pollock Diflucan Monitor closely 09/02/20: DC Cefepime Diflucan Bladder meds (1) Burst fracture of thoracic vertebra Status: Acute ASHLYN WINTERS DO Sep 02, 2020 09:07
[2020-09-02] MEDS ORDERED: FUROSEMIDE 40 MG/4 ML INJ (LASIX) IVP ONE (09:15)
[2020-09-02] MEDS: BETHANECHOL 25 MG (URECHOLINE) TAB PO SCH ×5 (09:15→21:58)
[2020-09-02] MEDS ORDERED: lisINopril 10 MG (PRINIVIL) TABLET PO ONE (09:15)
[2020-09-02] MEDS ORDERED: amLODIPine 5 MG (NORVASC) TAB PO ONE (09:15)
[2020-09-02] MEDS: IRON SUCROSE 200 MG/10 ML (VENOFER) VIAL IV SCH (09:16)
[2020-09-02] MEDS: PANTOPRAZOLE 40 MG (PROTONIX) TAB PO SCH (09:17)
[2020-09-02] MEDS: SENNA W/DOCUSATE (SENOKOT S) TABLET PO SCH ×2 (09:17→21:58)
[2020-09-02] MEDS: CARVEDILOL 12.5 MG (COREG) TABLET PO SCH ×2 (09:17→21:59)
[2020-09-02] MEDS: NICOTINE 21 MG (NICODERM) PATCH TD SCH (09:17)
[2020-09-02] MEDS: ASPIRIN E.C. 325 MG (ECOTRIN) TABLET PO SCH (09:17)
[2020-09-02] MEDS: DOCUSATE SODIUM 100 MG (COLACE) CAP PO SCH ×2 (09:17→21:59)
[2020-09-02] MEDS: KCL 10 MEQ TAB (MICRO K) PO SCH ×3 (09:17→18:25)
[2020-09-02] MEDS: FLUCONAZOLE 200 MG/100 ML 50 ML, EMPTY IV BAG (PVC) 1 EA IV SCH ×2 (09:18)
[2020-09-02] MEDS: polyethylene glycoL POWDER 17 GM (MIRALAX) PACK PO SCH ×2 (09:18→21:50)
[2020-09-02] MEDS: NICOTINE PATCH REMOVAL TP SCH (09:19)
[2020-09-02] MEDS: MICONAZOLE NITRATE 2% CRM 30 GM TP SCH ×3 (09:37→22:15)
--- NOTE | 2020-09-02 09:46 | Occupational Ther Daily Note ---
OT Current Status-Daily Note Subjective Pt seated up in recliner, breakfast just arrived prior to OT Tx. Pt looks at food and indicates it does not look appetizing and only wants her ensure. Mental Status/Objective Patient Orientation: Person, Place, Time, Situation ADL-Treatment Therapy Code Descriptions/Definitions Functional [place] Measure: 0=Not Assessed/NA 4=Minimal Assistance 1=Total Assistance 5=Supervision or Setup 2=Maximal Assistance 6=Modified [place] 3=Moderate Assistance 7=Complete IndependenceSCALE: Activities may be completed with or without assistive devices. 3-Qzlylaajsx-npompgo completes the activity by him/herself with no assistance from a helper. 5-Set-up or Clean-up Assistance-helper sets up or cleans up; patient completes activity. [place] assists only prior to or following the activity. 4-Supervision or Touching Assistance-helper provides verbal cues and/or touching/steadying and/or contact guard assistance as patient completes activity. Assistance may be provided throughout the activity or intermittently. 3-Partial/Moderate Assistance-helper does LESS THAN HALF the effort. [place] lifts, holds or supports trunk or limbs, but provides less than half the effort. 2-Substantial/Maximal Assistance-helper does MORE THAN HALF the effort. [place] lifts or holds trunk or limbs and provides more than half the effort. 4-Uupswhisb-gjrhxq does ALL the effort. Patient does none of the effort to complete the activity. Or, the assistance of 2 or more helpers is required for the patient to complete the activity. If activity was not attempted, code reason: 7-Patient Refused. 9-Not Applicable-not attempted and the patient did not perform the activity before the current illness, exacerbation or injury. 10-Not Attempted due to Environmental Limitations-(lack of equipment, weather restraints, etc.). 88-Not Attempted due to Medical Conditions or Safety Concerns. Eating (QC): 5 (set up, assist to open containers.) Oral Hygiene (QC): 6 (IND seated at sink.) Shower/Bathe Self (QC): 3 (Pt able to wash all parts seated, assist to dry L arm pit.) Upper Body Dressing (QC): 2 (Max A with tack puller machine shirt due to pt's reports of muscle spasms. Total assist donning/doffing back brace.) Lower Body Dressing (QC): 2 (Max A with donning pants using AE. Poor recall of AE between txs.) On/Off Footwear: 3 (Pt doffed socks using dressing stick, donned socks using figure 4 method. OT educated pt on 1 handed technique) Other Treatment Pt seated in recliner, sit to stand transfer from raised recliner mod A with multiple attempts. Pt reports muscle spasms in back with sit to stands. Pt then used R platform walker to ambulate into bathroom and onto NV with CGA. Pt doffed clothes, OT set up shower for pt, covering IV sites, dressings, and R forearm. Pt then showered, washing all parts seated on NV, using LH sponge as needed. Pt dried off, required assist drying L arm pit. Pt donned upper body shirt and brace at NV, difficulty removing hand from GBs due to muscle spasms and reports of fear of falling. Pt required max A overall with pullover shirt, and total assist with back brace. Pt then donned LE clothing using reaching, max verbal cues and assist to recall adaptive dressing techniques. Pt transferred to /, sat at sink to complete oral care and hair brushing. Then used platform walker to go to bed, sitting EOB, then transferring supine. With all transfer, pt required cues for UE placement, cues to recall sequencing, and cues to maintain NWB of RUE. Post tx laying in bed, call light in reach and all needs met. Education OT Patient Education: Correct positioning, Modified ADL techniques, Progress toward Goal/Update tx plan, Purpose of tx/functional activities, Safety issues, Transfer techniques, Use of adapted equipment Teaching Recipient: Patient Teaching Methods: Discussion Response to Teaching: Verbalize Understanding, Reinforcement Needed OT Short Term Goals Short Term Goals Time Frame: Sep 09, 2020 Toileting hygiene: 3 Shower/bathe self: 3 Upper body dressin Lower body dressin Putting on/taking off footwear: 3 OT Pipe Out Worker Goals Pipe Out Worker Goals Time Frame: September 25, 2020 Eating (QC): 6 Oral Hygiene (QC): 6 Toileting Hygiene (QC): 4 Shower/Bathe Self (QC): 4 Upper Body Dressing (QC): 5 Lower Body Dressing (QC): 4 On/Off Footwear (QC): 4 Additional Goals: 1-Demonstrate ADL Tasks, 2-Verbalize Understanding, 3- ImproveStrength/Babatunde 1=Demonstrate adherence to instructed precautions during ADL tasks. 2=Patient will verbalize/demonstrate understanding of assistive devices/mo difications for ADL. 3=Patient will improve strength/tolerance for activity to enable patient to perform ADL's. OT Education/Plan Problem List/Assessment Assessment: Decreased Activ Tolerance, Decreased UE Strength, Impaired I ADL's, Impaired Self-Care Skills, Restricted Funct UE ROM Discharge Recommendations Plan/Recommendations: Continue POC Treatment Plan/Plan of Care Patient would benefit from OT for education, treatment and training to promote independence in ADL's, mobility, safety and/or upper extremity function for ADL's. Plan of Care: ADL Retraining, Functional Mobility, Group Exercise/Act as Ind, UE Funct Exercise/Act Treatment Duration: September 25, 2020 Frequency: At least 5 of 7 days/Wk (IRF) Estimated Hrs Per Day: 1.5 hours per day Rehab Potential: Guarded Time/GCodes Start Time: 08:00 Stop Time: 09:30 Total Time Billed (hr/min): 90 Billed Treatment Time 1, ADL 6 YUNIEL GILBERT OT Sep 02, 2020 09:46
--- NOTE | 2020-09-02 09:47 | Progress Note - Urology ---
Progress Note-Urology Progress Notes/Assess & Plan Progress/Assessment & Plan VOIDING ON OWN BUT CARRIES PVR. PLAN START URECHOLINE Final Diagnosis RETENTION LIANNE VAZQUEZ MD Sep 02, 2020 09:47
--- NOTE | 2020-09-02 11:01 | Physical Therapy Daily Note ---
PT Daily Note-Current Subjective Pt. states she now feels fearful of falling, has had many falls in the past she attributes to low blood sugars. Pt. c/o pin in low back at 6/10 nubia with TRFs Pain Numeric Pain Scale: 6 Location: Medial Location Body Site: Back Pain Description: Cramping Mental Status Patient Orientation: Normal For Age Attachments: Other-See Comments (back brace) Transfers SCALE: Activities may be completed with or without assistive devices. 2-Nbmphjnpxe-phcdebi completes the activity by him/herself with no assistance from a helper. 5-Set-up or Clean-up Assistance-helper sets up or cleans up; patient completes activity. [place] assists only prior to or following the activity. 4-Supervision or Touching Assistance-helper provides verbal cues and/or touching/steadying and/or contact guard assistance as patient completes activity. Assistance may be provided throughout the activity or intermittently. 3-Partial/Moderate Assistance-helper does LESS THAN HALF the effort. [place] lifts, holds or supports trunk or limbs, but provides less than half the effort. 2-Substantial/Maximal Assistance-helper does MORE THAN HALF the effort. [place] lifts or holds trunk or limbs and provides more than half the effort. 1-Nqedvhvps-kjixkr does ALL the effort. Patient does none of the effort to complete the activity. Or, the assistance of 2 or more helpers is required for the patient to complete the activity. If activity was not attempted, code reason: 7-Patient Refused. 9-Not Applicable-not attempted and the patient did not perform the activity before the current illness, exacerbation or injury. 10-Not Attempted due to Environmental Limitations-(lack of equipment, weather restraints, etc.). 88-Not Attempted due to Medical Conditions or Safety Concerns. Roll Left & Right (QC): 5 Sit to Lying (QC): 4 Lying to Sitting/Side of Bed(Q: 3 Sit to Stand (QC): 3 Chair/Ukw-gj-Qykeh Xfer(QC): 4 Toilet Transfer (QC): 3 pt. requested bed height raised for sit to stand, all other std height TRFs required mod assist vs CGA from higher surface. Pain increases with wt shift to feet during sit to stand Weight Bearing Right Lower Extremity: Right Weight Bearing/Tolerated Left Lower Extremity: Left Weight Bearing/Tolerated NO WEIGHT BEARING RIGHT UPPER EXTREMITY Gait Training Does the Patient Walk?: Yes Walk 10 feet (QC): 4 Walk 50 ft with 2 Turns(QC): 4 Walk 150 ft (QC): 4 Gait Persons Needed: 1 Gait Assistive Device: Walker Platform gait with platform for RUE adjusted to fit better for more leverage . pt. wt bearing moderately on FWW and platform , equal step length, good MAXIME Exercises Supine Ex: Ankle pumps, Quad Set, Rolling, Glut sets, Heel Slides, Hip abd/add Supine Reps: 15 Seated Therapy Exercises: Ankle pumps, Sit to stand, Long arc quads Seated Reps: 12 NuStep Minutes: 5 NuStep Workload: 2 Treatments toilet TRF with mod assist and max assist clean up after. Pt. with poor tolerance for Nustep, pain increased in low back Assessment Current Status: Good Progress pain limits sit to stand PT Short Term Goals Short Term Goals Time Frame: Sep 04, 2020 Roll Left & Right: 3 Sit to lyin Lying to sitting on side of be: 3 Sit to stand: 3 Chair/ptt-hy-kmois transfer: 3 Toilet transfer: 3 Car transfer: 3 Walk 10 feet: 3 Walk 50 feet with two turns: 3 Walk 150 feet: 3 Walking 10ft on uneven surface: 3 1 step (curb): 3 4 steps: 3 Picking up objects: 88 PT Usp Goals Usp Goals PT Paid Search Marketing Analyst Goals Time Frame: Sep 18, 2020 Roll Left & Right (QC): 4 Sit to Lying (QC): 4 Lying-Sitting on Side/Bed(QC): 4 Sit to Stand (QC): 4 Chair/Qwo-im-Vdqcb Xfer(QC): 4 Toilet Transfer (QC): 4 Car Transfer (QC): 4 Does the Patient Walk: No and Walking Goal IS indicated Walk 10 feet (QC): 4 Walk 50ft with 2 Turns (QC): 4 Walk 150 ft (QC): 4 Walking 10ft on Uneven Surface: 4 1 Step (curb) (QC): 4 4 Steps (QC): 4 12 Steps (QC): 88 Picking up an Object (QC): 88 Wheel 50 feet with 2 turns (QC: 6 Wheel 150 feet: 6 PT Plan Treatment/Plan Treatment Plan: Continue Plan of Care Treatment Plan: Bed Mobility, Education, Functional Activity Babatunde, Functional Strength, Group Therapy, Gait, Safety, Therapeutic Exercise, Transfers Treatment Duration: Sep 18, 2020 Frequency: At least 5 of 7 days/Wk (IRF) Estimated Hrs Per Day: 1.5 hours per day Patient and/or Family Agrees t: Yes Safety Risks/Education Patient Education: Gait Training, Transfer Techniques, Correct Positioning, Reviewed Don/Doff Brace, Disease Process, Safety Issues Teaching Recipient: Patient Teaching Methods: Demonstration, Discussion Response to Teaching: Verbalize Understanding, Return Demonstration, Reinforcement Needed Time/GCodes Time In: 1000 Time Out: 1100 Total Billed Treatment Time: 60 Total Billed Treatment 1,FA30m,GT15m,EX15m MAGALY BATISTA TOP CAGER Sep 02, 2020 11:01
--- NOTE | 2020-09-02 14:32 | Physical Therapy Daily Note ---
PT Daily Note-Current Subjective Pt. agrees to Rx, needs t go to toilet. States that she feels sup to sit and sit to stand is the most difficult for her. Pain Numeric Pain Scale: 4 Location: Medial Location Body Site: Back Pain Description: Ache Mental Status Patient Orientation: Normal For Age Attachments: Other-See Comments (back brace) Transfers SCALE: Activities may be completed with or without assistive devices. 8-Bbnkgrkamw-vjskmqh completes the activity by him/herself with no assistance from a helper. 5-Set-up or Clean-up Assistance-helper sets up or cleans up; patient completes activity. [place] assists only prior to or following the activity. 4-Supervision or Touching Assistance-helper provides verbal cues and/or touching/steadying and/or contact guard assistance as patient completes activity. Assistance may be provided throughout the activity or intermittently. 3-Partial/Moderate Assistance-helper does LESS THAN HALF the effort. [place] lifts, holds or supports trunk or limbs, but provides less than half the effort. 2-Substantial/Maximal Assistance-helper does MORE THAN HALF the effort. [place] lifts or holds trunk or limbs and provides more than half the effort. 5-Orvswtntx-eelnym does ALL the effort. Patient does none of the effort to complete the activity. Or, the assistance of 2 or more helpers is required for the patient to complete the activity. If activity was not attempted, code reason: 7-Patient Refused. 9-Not Applicable-not attempted and the patient did not perform the activity before the current illness, exacerbation or injury. 10-Not Attempted due to Environmental Limitations-(lack of equipment, weather restraints, etc.). 88-Not Attempted due to Medical Conditions or Safety Concerns. log roll instruction in out bed as well as sit to stand , pt. hav ing some difficulty as she can really only push up with L hand/arm Weight Bearing Right Lower Extremity: Right Weight Bearing/Tolerated Left Lower Extremity: Left Weight Bearing/Tolerated NO WEIGHT BEARING RIGHT UPPER EXTREMITY Gait Training Gait Assistive Device: Walker Platform 200ft, 175ft CGA no LOB, moderate wt bearng on FWW Exercises Seated Therapy Exercises: Ankle pumps, Sit to stand, Long arc quads Seated Reps: 12 Treatments toileting with mod assist TRF, max assist clean up and mod assist pants up down, discussed pts home bathroom set up which apparently cannot accommodate a walker not even sideways as well as the heights of her surfaces , both are an issue which have pt considering staying at her sons home temporarily, much work on donning and doffing brace using mirror to help pt. see the situation of the br nancy and it fixtures while on her, pt requires mod assist to fiona and min assist to doff Assessment Current Status: Good Progress PT Short Term Goals Short Term Goals Time Frame: Sep 04, 2020 Roll Left & Right: 3 Sit to lyin Lying to sitting on side of be: 3 Sit to stand: 3 Chair/yqp-ba-bmpxm transfer: 3 Toilet transfer: 3 Car transfer: 3 Walk 10 feet: 3 Walk 50 feet with two turns: 3 Walk 150 feet: 3 Walking 10ft on uneven surface: 3 1 step (curb): 3 4 steps: 3 Picking up objects: 88 PT Public Information Officer Goals Public Information Officer Goals PT Jail Goals Time Frame: Sep 18, 2020 Roll Left & Right (QC): 4 Sit to Lying (QC): 4 Lying-Sitting on Side/Bed(QC): 4 Sit to Stand (QC): 4 Chair/Abo-dy-Imojy Xfer(QC): 4 Toilet Transfer (QC): 4 Car Transfer (QC): 4 Does the Patient Walk: No and Walking Goal IS indicated Walk 10 feet (QC): 4 Walk 50ft with 2 Turns (QC): 4 Walk 150 ft (QC): 4 Walking 10ft on Uneven Surface: 4 1 Step (curb) (QC): 4 4 Steps (QC): 4 12 Steps (QC): 88 Picking up an Object (QC): 88 Wheel 50 feet with 2 turns (QC: 6 Wheel 150 feet: 6 PT Plan Treatment/Plan Treatment Plan: Continue Plan of Care Treatment Plan: Bed Mobility, Education, Functional Activity Babatunde, Functional Strength, Group Therapy, Gait, Safety, Therapeutic Exercise, Transfers Treatment Duration: Sep 18, 2020 Frequency: At least 5 of 7 days/Wk (IRF) Estimated Hrs Per Day: 1.5 hours per day Patient and/or Family Agrees t: Yes Safety Risks/Education Patient Education: Gait Training, Transfer Techniques, Reviewed Don/Doff Brace Teaching Recipient: Patient Teaching Methods: Demonstration, Discussion Response to Teaching: Verbalize Understanding, Return Demonstration, Reinforcement Needed Time/GCodes Time In: 1345 Time Out: 1425 Total Billed Treatment Time: 40 Total Billed Treatment 1,FA23m,GT17m MAGALY BATISTA HORN PLAYER Sep 02, 2020 14:32
[2020-09-02] MEDS: TAMSULOSIN 0.4 MG (FLOMAX) CAP PO SCH (18:25)
[2020-09-02 19:43] VITALS: BP 122/68
[2020-09-02] MEDS: AMITRIPTYLINE 50 MG (ELAVIL) TAB PO SCH (21:59)
[2020-09-03] MEDS: GABAPENTIN 600 MG (NEURONTIN) TAB PO PRN ×2 (04:07→21:36)
[2020-09-03] MEDS: inSUlin ASPART (NovoLOG) 1 UNIT/0.01 ML (CHARGE PER UNIT) SC SCH ×4 (06:15→21:33)
[2020-09-03] MEDS: LEVOTHYROXINE 75 MCG (LEVOTHROID) TABLET PO SCH (06:28)
[2020-09-03] MEDS: SUCRALFATE 1 GM (CARAFATE) TAB PO SCH ×4 (06:28→21:36)
[2020-09-03] MEDS: LEVOTHYROXINE 100 MCG (LEVOTHROID) TAB PO SCH (06:28)
[2020-09-03] MEDS: CYCLOBENZAPRINE 10 MG (FLEXERIL) TAB PO PRN ×2 (06:29→15:34)
[2020-09-03] MEDS: BETHANECHOL 25 MG (URECHOLINE) TAB PO SCH ×4 (06:29→21:36)
[2020-09-03 08:00] VITALS: BP 125/66
--- NOTE | 2020-09-03 08:29 | Occupational Ther Daily Note ---
OT Current Status-Daily Note Subjective Pt laying in bed sleeping, easily awoken and agreeable to OT tx. 7/10 pain in back in sitting, 10/10 in low back when standing. ADL-Treatment Therapy Code Descriptions/Definitions Functional [place] Measure: 0=Not Assessed/NA 4=Minimal Assistance 1=Total Assistance 5=Supervision or Setup 2=Maximal Assistance 6=Modified [place] 3=Moderate Assistance 7=Complete IndependenceSCALE: Activities may be completed with or without assistive devices. 3-Rasnzbbmmz-razkwkc completes the activity by him/herself with no assistance from a helper. 5-Set-up or Clean-up Assistance-helper sets up or cleans up; patient completes activity. [place] assists only prior to or following the activity. 4-Supervision or Touching Assistance-helper provides verbal cues and/or touching/steadying and/or contact guard assistance as patient completes activity. Assistance may be provided throughout the activity or intermittently. 3-Partial/Moderate Assistance-helper does LESS THAN HALF the effort. [place] lifts, holds or supports trunk or limbs, but provides less than half the effort. 2-Substantial/Maximal Assistance-helper does MORE THAN HALF the effort. [place] lifts or holds trunk or limbs and provides more than half the effort. 6-Iypmauitp-glpirh does ALL the effort. Patient does none of the effort to complete the activity. Or, the assistance of 2 or more helpers is required for the patient to complete the activity. If activity was not attempted, code reason: 7-Patient Refused. 9-Not Applicable-not attempted and the patient did not perform the activity before the current illness, exacerbation or injury. 10-Not Attempted due to Environmental Limitations-(lack of equipment, weather restraints, etc.). 88-Not Attempted due to Medical Conditions or Safety Concerns. Eating (QC): 5 (set up assist, assist to open containers. Pt then able to use utensils with L hand to eat.) Lower Body Dressing (QC): 2 (Pt required assist threading LLE and pant hike, pt able to thread RLE using AE.) Toileting Hygiene (QC): 3 (Pt able to manage pants down, assist with pant hike. ) Toilet Transfer (QC): 3 (CGA stand to sit, min A sit to stand from [facility] [place] [place] over toilet.) Other Treatment Pt laying in bed, transferred supine to sit EOB. OT dependently donned back brac e. Pt used R platform walker to go to bathroom and onto BSC over toilet. Pt completed toileting, attempting to void urine, but unable to void (nurse notified). Pt donned pants, then stood at platform walker for pant hike. Pt used platform walker to ambulate to therapy gym, SBA. OT edcuated pt on not twisting wtih movements in order to maintain back precautions. Pt completed ring arc activity using LUE with 1 lb wrist weight, crossing midline while maintaining back precaution. Pt completed task x2, taking rest breaks as needed. Pt completed sit to stand, min A, then used platform walker to return to room and transfer to recliner. Pt required cues for UE placement with sit to stand transfers. OT set up breakfast for pt, post tx, pt seated in recliner, call lig ht in reach and all needs met. Education OT Patient Education: Correct positioning, Energy conservation, Exercise program, Modified ADL techniques, Progress toward Goal/Update tx plan, Purpose of tx/functional activities, Safety issues, Transfer techniques Teaching Recipient: Patient Teaching Methods: Discussion Response to Teaching: Verbalize Understanding, Reinforcement Needed OT Short Term Goals Short Term Goals Time Frame: Sep 09, 2020 Toileting hygiene: 3 Shower/bathe self: 3 Upper body dressin Lower body dressin Putting on/taking off footwear: 3 OT Residential Goals Residential Goals Time Frame: September 25, 2020 Eating (QC): 6 Oral Hygiene (QC): 6 Toileting Hygiene (QC): 4 Shower/Bathe Self (QC): 4 Upper Body Dressing (QC): 5 Lower Body Dressing (QC): 4 On/Off Footwear (QC): 4 Additional Goals: 1-Demonstrate ADL Tasks, 2-Verbalize Understanding, 3- ImproveStrength/Babatunde 1=Demonstrate adherence to instructed precautions during ADL tasks. 2=Patient will verbalize/demonstrate understanding of assistive devices/modifications for ADL. 3=Patient will improve strength/tolerance for activity to enable patient to perform ADL's. OT Education/Plan Problem List/Assessment Assessment: Decreased Activ Tolerance, Decreased UE Strength, Impaired I ADL's, Impaired Self-Care Skills, Restricted Funct UE ROM Discharge Recommendations Plan/Recommendations: Continue POC Treatment Plan/Plan of Care Patient would benefit from OT for education, treatment and training to promote independence in ADL's, mobility, safety and/or upper extremity function for ADL's. Plan of Care: ADL Retraining, Functional Mobility, Group Exercise/Act as Ind, UE Funct Exercise/Act Treatment Duration: September 25, 2020 Frequency: At least 5 of 7 days/Wk (IRF) Estimated Hrs Per Day: 1.5 hours per day Rehab Potential: Guarded Time/GCodes Start Time: 07:50 Stop Time: 08:50 Total Time Billed (hr/min): 60 Billed Treatment Time 1, ADL 2 (35'), FA 2 (25') YUNIEL GILBERT OT Sep 03, 2020 08:29
[2020-09-03] MEDS: CARVEDILOL 12.5 MG (COREG) TABLET PO SCH ×2 (08:46→21:37)
[2020-09-03] MEDS: PANTOPRAZOLE 40 MG (PROTONIX) TAB PO SCH (08:46)
[2020-09-03] MEDS: ASPIRIN E.C. 325 MG (ECOTRIN) TABLET PO SCH (08:46)
[2020-09-03] MEDS: lisINopril 10 MG (PRINIVIL) TABLET PO SCH (08:46)
[2020-09-03] MEDS: amLODIPine 5 MG (NORVASC) TAB PO SCH (08:46)
[2020-09-03] MEDS: polyethylene glycoL POWDER 17 GM (MIRALAX) PACK PO SCH ×2 (08:46→21:33)
[2020-09-03] MEDS: SENNA W/DOCUSATE (SENOKOT S) TABLET PO SCH ×2 (08:46→21:37)
[2020-09-03] MEDS: KCL 10 MEQ TAB (MICRO K) PO SCH ×3 (08:46→18:05)
[2020-09-03] MEDS: DOCUSATE SODIUM 100 MG (COLACE) CAP PO SCH ×2 (08:46→21:36)
[2020-09-03] MEDS: NICOTINE 21 MG (NICODERM) PATCH TD SCH (08:46)
[2020-09-03] MEDS: MICONAZOLE NITRATE 2% CRM 30 GM TP SCH ×4 (08:47→21:42)
[2020-09-03] MEDS: FLUCONAZOLE 200 MG/100 ML 50 ML, EMPTY IV BAG (PVC) 1 EA IV SCH ×2 (08:48)
[2020-09-03] MEDS: NICOTINE PATCH REMOVAL TP SCH (08:57)
--- NOTE | 2020-09-03 10:33 | Physical Therapy Daily Note ---
PT Daily Note-Current Subjective Pt reports she likes walking and doing exs because they both seem to help. Pt reports her pain is decreasing and she feels like she is moving better. Pt agrees to PT. Pain Location Body Site: Hip Mental Status Patient Orientation: Person, Place, Time, Situation Attachments: Other-See Comments (mask while out of room and TLSO when up) Transfers SCALE: Activities may be completed with or without assistive devices. 9-Apivteovie-ompkpoj completes the activity by him/herself with no assistance from a helper. 5-Set-up or Clean-up Assistance-helper sets up or cleans up; patient completes activity. [place] assists only prior to or following the activity. 4-Supervision or Touching Assistance-helper provides verbal cues and/or touching/steadying and/or contact guard assistance as patient completes activity. Assistance may be provided throughout the activity or intermittently. 3-Partial/Moderate Assistance-helper does LESS THAN HALF the effort. [place] lifts, holds or supports trunk or limbs, but provides less than half the effort. 2-Substantial/Maximal Assistance-helper does MORE THAN HALF the effort. [place] lifts or holds trunk or limbs and provides more than half the effort. 7-Yaukmwtdd-uubyfu does ALL the effort. Patient does none of the effort to complete the activity. Or, the assistance of 2 or more helpers is required for the patient to complete the activity. If activity was not attempted, code reason: 7-Patient Refused. 9-Not Applicable-not attempted and the patient did not perform the activity before the current illness, exacerbation or injury. 10-Not Attempted due to Environmental Limitations-(lack of equipment, weather restraints, etc.). 88-Not Attempted due to Medical Conditions or Safety Concerns. Sit to Lying (QC): 5 Lying to Sitting/Side of Bed(Q: 5 Sit to Stand (QC): 3 Weight Bearing Right Lower Extremity: Right Weight Bearing/Tolerated Left Lower Extremity: Left Weight Bearing/Tolerated NO WEIGHT BEARING RIGHT UPPER EXTREMITY Gait Training Does the Patient Walk?: Yes Distance: 400' Walk 10 feet (QC): 5 Walk 50 ft with 2 Turns(QC): 5 Walk 150 ft (QC): 5 Gait Persons Needed: 1 Gait Assistive Device: Walker Platform Wheelchair Training Does the Pt Use a Wheelchair?: No Exercises Supine Ex: Heel Slides, Straight leg raise, Hip abd/add Supine Reps: 12 (AAROM on SLRs) Seated Therapy Exercises: Ankle pumps, Sit to stand, Long arc quads Seated Reps: 12 Treatments Pt in recliner upon arrival sit-stand TF. Amb to therapy gym TF to mat. Performs seated exs. Sit-stand and amb down the valdes and makes 2 laps then back to room. TF to bed and performs supine exs. Pt in bed when PT departs. Assessment Current Status: Good Progress Pt needed Patrick when performing sit-stand TF and needed skilled verbal cues about hand placement during TFs. Pt performed SLRs for the first time today and did not complain about pain just minor discomfort. Pt takes wide turns when amb because she struggles to turn FWW w/ platform. Pt in bed at end of Rx call light in hand and all needs met. PT Short Term Goals Short Term Goals Time Frame: Sep 04, 2020 Roll Left & Right: 3 Sit to lyin Lying to sitting on side of be: 3 Sit to stand: 3 Chair/jxl-wa-enayb transfer: 3 Toilet transfer: 3 Car transfer: 3 Walk 10 feet: 3 Walk 50 feet with two turns: 3 Walk 150 feet: 3 Walking 10ft on uneven surface: 3 1 step (curb): 3 4 steps: 3 Picking up objects: 88 PT Usp Goals Registered Public Health Nurse Goals PT Registered Public Health Nurse Goals Time Frame: Sep 18, 2020 Roll Left & Right (QC): 4 Sit to Lying (QC): 4 Lying-Sitting on Side/Bed(QC): 4 Sit to Stand (QC): 4 Chair/Qad-bd-Adeca Xfer(QC): 4 Toilet Transfer (QC): 4 Car Transfer (QC): 4 Does the Patient Walk: No and Walking Goal IS indicated Walk 10 feet (QC): 4 Walk 50ft with 2 Turns (QC): 4 Walk 150 ft (QC): 4 Walking 10ft on Uneven Surface: 4 1 Step (curb) (QC): 4 4 Steps (QC): 4 12 Steps (QC): 88 Picking up an Object (QC): 88 Wheel 50 feet with 2 turns (QC: 6 Wheel 150 feet: 6 PT Plan Problem List Problem List: Activity Tolerance, Transfer Treatment/Plan Treatment Plan: Continue Plan of Care Treatment Plan: Bed Mobility, Education, Functional Activity Babatunde, Functional Strength, Group Therapy, Gait, Safety, Therapeutic Exercise, Transfers Treatment Duration: Sep 18, 2020 Frequency: At least 5 of 7 days/Wk (IRF) Estimated Hrs Per Day: 1.5 hours per day Patient and/or Family Agrees t: Yes Safety Risks/Education Patient Education: Gait Training, Transfer Techniques, Correct Positioning Teaching Recipient: Patient Teaching Methods: Demonstration, Discussion Response to Teaching: Verbalize Understanding, Return Demonstration Time/GCodes Time In: 930 Time Out: 1030 Total Billed Treatment Time: 60 Total Billed Treatment 1, GT x 2 (30m), EX x 2 (30m) ELLEN LINARES DIRECTOR REGULATORY AGENCY Sep 03, 2020 10:33
--- NOTE | 2020-09-03 12:11 | PM&R Progress Note ---
Subjective HPI/CC On Admission Date Seen by Provider: Sep 03, 2020 Time Seen by Provider: 11:30 Subjective/Events-last exam 09/03/20: No BM yet last one was 08/31 Bladder scanning and doing pretty well Dr. Keen managing Had a straight cath last night Diflucan changed to oral today 09/02/20: Pt doing pretty well Walking around much better Voiding 500 CCs had 125 on bladder scan but the straight cath later this morning obtained 700 CCs Urecholine started BP 170/80 so restarted Lisinopril and Amlodipine Decreasing Levemir because her sugar was 83 09/01/20: Pt doing a lot better today DC Pollock catheter Improved on transfers WBC 18.5, procalcitonin and lactic acid is normal Hgb 8.6 IV Venofer is maintained 08/31/20: Pt doing pretty well Was able to walk today Discontinue catheter soon Yeast UTI requiring Diflucan IV Left humerus and shoulder X-ray obtained Had a small BM after multiple attempts Antibiotics still on board Potassium 3.2 so changed the potassium to TID with meals Carafate initiated at her request, she has terrible reflux 08/30/20: BP is much improved Patient feels good Pollock cath to remain until she is able to get out of bed Moving around in bed a lot today Supp did not work so giving fleets and if no results will give SSE HLIVF today Talked about left arm pain no trauma but will get xray tomorrow 08/29/20: Patient doing better today Was able to get on side of bed today on her own Pain more controlled UTI dx on UA so Cefepime started due to high risk for Pseudomonas as bacterial source Hypotension noted and she was asymptomatic like she was yesterday giving rise to assumption she has orthostasis and autonomic dysfunction due to DM Florinef ordered and JOSE and DANIA wraps on her legs Decreasing Coreg to 12.5 PO BID 08/28/20: Much improved status Multiple issues are addressed No BM for 3 weeks and started to move a bit with supp Vaginal yeast infection Pollock catheter maintained Dr Keen consulted Pain is an issue Hypoglycemia noted Review of Systems General: Fatigue, Malaise Musculoskeletal: back pain Focused Exam Lactate Level Objective Exam Vital Signs Vital Signs Date Time Temp Pulse Resp B/P (MAP) Pulse Ox O2 Delivery O2 Flow Rate FiO2 09/03/20 21:00 Room Air 09/03/20 20:00 35.9 85 16 127/75 (92 95 Capillary Refill : General Appearance: No Apparent Distress, WD/WN, Anxious, Chronically ill, Thin HEENT: PERRL/EOMI, Normal ENT Inspection, Pharynx Normal Neck: Full Range of Motion, Normal Inspection, Non Tender, Supple, Carotid Bruit Respiratory: Chest Non Tender, Lungs Clear, Normal Breath Sounds, No Accessory Muscle Use, No Respiratory Distress Cardiovascular: Regular Rate, Rhythm, No Edema, No Gallop, No JVD, No Murmur, Normal Peripheral Pulses Gastrointestinal: Normal Bowel Sounds, No Organomegaly, No Pulsatile Mass, Non Tender, Soft Back: Decreased Range of Motion, Muscle Spasm, Vertebral Tenderness Extremity: Normal Capillary Refill, Normal Inspection, Normal Range of Motion, Non Tender, No Calf Tenderness, No Pedal Edema Neurologic/Psychiatric: Alert, Oriented x3, No Motor/Sensory Deficits, Normal Mood/Affect, automatic serging machine operator II-XII Norm as Tested, Abnormal Gait, Motor Weakness (lower legs) Skin: Normal Color, Warm/Dry Lymphatic: No Adenopathy Results/Procedures Lab Patient resulted labs reviewed. FIM Transfers Therapy Code Descriptions/Definitions Functional [place] Measure: 0=Not Assessed/NA 4=Minimal Assistance 1=Total Assistance 5=Supervision or Setup 2=Maximal Assistance 6=Modified [place] 3=Moderate Assistance 7=Complete IndependenceSCALE: Activities may be completed with or without assistive devices. 2-Ywsjmcngmx-ixcitng completes the activity by him/herself with no assistance from a helper. 5-Set-up or Clean-up Assistance-helper sets up or cleans up; patient completes activity. [place] assists only prior to or following the activity. 4-Supervision or Touching Assistance-helper provides verbal cues and/or touching/steadying and/or contact guard assistance as patient completes activity. Assistance may be provided throughout the activity or intermittently. 3-Partial/Moderate Assistance-helper does LESS THAN HALF the effort. [place] lifts, holds or supports trunk or limbs, but provides less than half the effort. 2-Substantial/Maximal Assistance-helper does MORE THAN HALF the effort. [place] lifts or holds trunk or limbs and provides more than half the effort. 1-Ncgyzjukw-ibnpsa does ALL the effort. Patient does none of the effort to complete the activity. Or, the assistance of 2 or more helpers is required for the patient to complete the activity. If activity was not attempted, code reason: 7-Patient Refused. 9-Not Applicable-not attempted and the patient did not perform the activity before the current illness, exacerbation or injury. 10-Not Attempted due to Environmental Limitations-(lack of equipment, weather restraints, etc.). 88-Not Attempted due to Medical Conditions or Safety Concerns. Roll Left to Right (QC): 5 Sit to Lying (QC): 5 Sit to Stand (QC): 3 Chair/Rhg-sg-Tjdtw Xfer(QC): 4 Car Transfer (QC): 88 Gait Training Does the Patient Walk?: Yes Distance: 400' Walk 10 feet (QC): 5 Walk 50 ft with 2 Turns(QC): 5 Walk 150 ft (QC): 5 Walking 10ft/uneven surface-QC: 88 Gait Persons Needed: 1 Gait Assistive Device: Walker Platform Wheelchair Training Does the Pt Use a Wheelchair?: No Wheel 50 ft with 2 turns (QC): 88 Wheel 150 ft (QC): 88 Stair Training 1 Step (curb) (QC): 88 4 Steps (QC): 88 12 Steps (QC): 88 Balance Picking up an Object (QC): 88 ADL-Treatment Eating (QC): 5 (set up assist, assist to open containers. Pt then able to use utensils with L hand to eat.) Oral Hygiene (QC): 6 (IND seated at sink.) Bathing Location: L Arm, R Arm, Chest, Abdomen, Perineal Area Shower/Bathe Self (QC): 3 (Pt able to wash all parts seated, assist to dry L arm pit.) Upper Body Dressing (QC): 2 (Max A with trap puller shirt due to pt's reports of muscle spasms. Total assist donning/doffing back brace.) Lower Body Dressing (QC): 2 (Pt required assist threading LLE and pant hike, pt able to thread RLE using AE.) On/Off Footwear (QC): 3 (Pt doffed socks using dressing stick, donned socks using figure 4 method. OT educated pt on 1 handed technique) Toileting Hygiene (QC): 3 (Pt able to manage pants down, assist with pant hike. ) Toilet Transfer (QC): 3 (CGA stand to sit, min A sit to stand from [facility] over toilet.) Assessment/Plan Assessment and Plan Assess & Plan/Chief Complaint Status post fall with T12 burst fracture s/p laminectomy and fusion 08/24/2020 X- ray of the pelvis negative for acute osseous abnormality. Right wrist fracture Hypovitaminosis D: Continue ergocalciferol. Acute kidney injury: Resolved. Hypochloremic hyponatremia: Improved significantly. Hypophosphatemia: s/p Sodium phosphate 15 mmol x 1. Leukocytosis: Essential hypertension but hypotensive here at IRF so decreased Coreg and started Florinef and JOSE/DANIA to legs Mixed hyperlipidemia: Acquired hypothyroidism: Continue Synthroid. Diabetes mellitus type 2: Continued Lantus and lispro but holding long acting due to hypoglycemia GERD: Protonix. Mood disorder: Continue Elavil and Lexapro. ANALISA: Nocturnal CPAP. Yeast vaginitis Orthostasis placed on IVF and Florinef UTI yeast placed on diflucan 08/30/20 Pollock cath required due to urinary retention consulting Dr Keen Plan: IRF protocol Pain control IVF 08/28/20: BM regimen Yeast treamtent Pain control Hold insulin 08/29/20: Florinef JOSE/DANIA wraps IVF Cefepime for UTI 08/30/20 Added Diflucan HLIVF 08/31/20: Monitor closely DC pollock soon 09/01/20: DC pollock Diflucan Monitor closely 09/02/20: DC Cefepime Diflucan Bladder meds 09/03/20: Bladder management Diflucan Insulin (1) Burst fracture of thoracic vertebra Status: Acute ASHLYN WINTERS DO Sep 03, 2020 12:11
--- NOTE | 2020-09-03 12:27 | Progress Note - Urology ---
Progress Note-Urology Progress Notes/Assess & Plan Progress/Assessment & Plan VOIDING AND EMPTYING BETTER. TOLERATES URECHOLINE WELL Final Diagnosis URIINE RETENTION LIANNE VAZQUEZ MD Sep 03, 2020 12:27
[2020-09-03] MEDS: SCOPOLAMINE 1.5 MG (TRANSDERM-SCOP) PATCH TD SCH (13:22)
[2020-09-03] MEDS: [UNRECOGNIZED DRUG - REMARK] TP SCH (13:22)
--- NOTE | 2020-09-03 14:00 | Occupational Ther Daily Note ---
OT Current Status-Daily Note Subjective Pt laying in bed, agreeable to OT tx. ADL-Treatment Therapy Code Descriptions/Definitions Functional [place] Measure: 0=Not Assessed/NA 4=Minimal Assistance 1=Total Assistance 5=Supervision or Setup 2=Maximal Assistance 6=Modified [place] 3=Moderate Assistance 7=Complete IndependenceSCALE: Activities may be completed with or without assistive devices. 5-Mcrrcesmcl-zebrxlq completes the activity by him/herself with no assistance from a helper. 5-Set-up or Clean-up Assistance-helper sets up or cleans up; patient completes activity. [place] assists only prior to or following the activity. 4-Supervision or Touching Assistance-helper provides verbal cues and/or touching/steadying and/or contact guard assistance as patient completes activity. Assistance may be provided throughout the activity or intermittently. 3-Partial/Moderate Assistance-helper does LESS THAN HALF the effort. [place] lifts, holds or supports trunk or limbs, but provides less than half the effort. 2-Substantial/Maximal Assistance-helper does MORE THAN HALF the effort. [place] lifts or holds trunk or limbs and provides more than half the effort. 4-Xccttqyih-fkxujt does ALL the effort. Patient does none of the effort to com plete the activity. Or, the assistance of 2 or more helpers is required for the patient to complete the activity. If activity was not attempted, code reason: 7-Patient Refused. 9-Not Applicable-not attempted and the patient did not perform the activity before the current illness, exacerbation or injury. 10-Not Attempted due to Environmental Limitations-(lack of equipment, weather restraints, etc.). 88-Not Attempted due to Medical Conditions or Safety Concerns. Oral Hygiene (QC): 4 (SBA standing at sink.) Other Treatment pt laying in bed, transferred supine to sit EOB. Back brace donned with max A. Pt stood at R platform walker, min A, then ambulated into bathroom with SBA. Pt completed oral care standing at sink, and combed her hair, then used walker to go to therapy gym. Pt stood at FWW, completed reaching task in all planes using LUE, able to maintain back precautions wtih min cues. She then completed x15 reps RUE shoulder flexion, elbow flexion/extension and finger flexion/extension. Pt ambulated around [facility] area with R platform walker, SBA, then returned to gym and sat on the edge of mat. Post tx, pt seated on mat, PT present for continued tx. Education OT Patient Education: Correct positioning, Modified ADL techniques, Progress toward Goal/Update tx plan, Purpose of tx/functional activities, Rehab process Teaching Recipient: Patient Teaching Methods: Discussion Response to Teaching: Verbalize Understanding OT Short Term Goals Short Term Goals Time Frame: Sep 09, 2020 Toileting hygiene: 3 Shower/bathe self: 3 Upper body dressin Lower body dressin Putting on/taking off footwear: 3 OT [facility] Goals Licensed Plumber Goals Time Frame: September 25, 2020 Eating (QC): 6 Oral Hygiene (QC): 6 Toileting Hygiene (QC): 4 Shower/Bathe Self (QC): 4 Upper Body Dressing (QC): 5 Lower Body Dressing (QC): 4 On/Off Footwear (QC): 4 Additional Goals: 1-Demonstrate ADL Tasks, 2-Verbalize Understanding, 3- ImproveStrength/Babatunde 1=Demonstrate adherence to instructed precautions during ADL tasks. 2=Patient will verbalize/demonstrate understanding of assistive devices/modifications for ADL. 3=Patient will improve strength/tolerance for activity to enable patient to perform ADL's. OT Education/Plan Problem List/Assessment Assessment: Decreased Activ Tolerance, Decreased UE Strength, Impaired Funct Balance, Impaired I ADL's, Impaired Self-Care Skills Discharge Recommendations Plan/Recommendations: Continue POC Treatment Plan/Plan of Care Patient would benefit from OT for education, treatment and training to promote independence in ADL's, mobility, safety and/or upper extremity function for ADL's. Plan of Care: ADL Retraining, Functional Mobility, Group Exercise/Act as Ind, UE Funct Exercise/Act Treatment Duration: September 25, 2020 Frequency: At least 5 of 7 days/Wk (IRF) Estimated Hrs Per Day: 1.5 hours per day Rehab Potential: Guarded Time/GCodes Start Time: 13:00 Stop Time: 13:30 Total Time Billed (hr/min): 30 Billed Treatment Time 1, ADL (15'), FA (15') YUNIEL GILBERT OT Sep 03, 2020 14:00
--- NOTE | 2020-09-03 15:00 | Physical Therapy Daily Note ---
PT Daily Note-Current Subjective Pt states she is sore this afternoon and is having more spasms in her back. Pt wanted to complete another lap this afternoon to get 3 laps on the day. Pt agrees to PT. Mental Status Patient Orientation: Person, Place, Time, Situation Attachments: Other-See Comments (mask while out of room) Transfers SCALE: Activities may be completed with or without assistive devices. 7-Gawrfjcfil-dozipbf completes the activity by him/herself with no assistance from a helper. 5-Set-up or Clean-up Assistance-helper sets up or cleans up; patient completes activity. [place] assists only prior to or following the activity. 4-Supervision or Touching Assistance-helper provides verbal cues and/or touching/steadying and/or contact guard assistance as patient completes activity. Assistance may be provided throughout the activity or intermittently. 3-Partial/Moderate Assistance-helper does LESS THAN HALF the effort. [place] lifts, holds or supports trunk or limbs, but provides less than half the effort. 2-Substantial/Maximal Assistance-helper does MORE THAN HALF the effort. [place] lifts or holds trunk or limbs and provides more than half the effort. 1-Kjuvwwunq-jurrhf does ALL the effort. Patient does none of the effort to complete the activity. Or, the assistance of 2 or more helpers is required for the patient to complete the activity. If activity was not attempted, code reason: 7-Patient Refused. 9-Not Applicable-not attempted and the patient did not perform the activity before the current illness, exacerbation or injury. 10-Not Attempted due to Environmental Limitations-(lack of equipment, weather restraints, etc.). 88-Not Attempted due to Medical Conditions or Safety Concerns. Sit to Stand (QC): 4 Weight Bearing Right Lower Extremity: Right Weight Bearing/Tolerated Left Lower Extremity: Left Weight Bearing/Tolerated NO WEIGHT BEARING RIGHT UPPER EXTREMITY Gait Training Does the Patient Walk?: Yes Distance: 375' Walk 10 feet (QC): 5 Walk 50 ft with 2 Turns(QC): 5 (wide turns) Walk 150 ft (QC): 5 Gait Persons Needed: 1 Gait Assistive Device: Walker Platform Wheelchair Training Does the Pt Use a Wheelchair?: No Exercises Supine Ex: Ankle pumps, Glut sets Supine Reps: 12 Seated Therapy Exercises: Ankle pumps, Sit to stand, Long arc quads, Hip flexion, Hamstring Curls Seated Reps: 12 Treatments Pt in therapy gym w/ OT at beginning of Rx. Perform seated exs at mat. Sit-stand amb down the hallway to windowsill and back to room. TF to bed and perform supine exs. Assessment Current Status: Good Progress Pt needs Patrick for sit-stand TF as this continues to be the most difficult TF for her. Pt talkative during Rx NETWORK CONTROL TECHNICIAN has to be redirected to continue. Pt legs and feet continue to be swollen. Pt TF back to bed at end of Rx call light in hand and all needs met. PT Short Term Goals Short Term Goals Time Frame: Sep 04, 2020 Roll Left & Right: 3 Sit to lyin Lying to sitting on side of be: 3 Sit to stand: 3 Chair/yxd-fx-hyfjg transfer: 3 Toilet transfer: 3 Car transfer: 3 Walk 10 feet: 3 Walk 50 feet with two turns: 3 Walk 150 feet: 3 Walking 10ft on uneven surface: 3 1 step (curb): 3 4 steps: 3 Picking up objects: 88 PT Mechanical Cad Designer Goals Prison Goals PT Mechanical Cad Designer Goals Time Frame: Sep 18, 2020 Roll Left & Right (QC): 4 Sit to Lying (QC): 4 Lying-Sitting on Side/Bed(QC): 4 Sit to Stand (QC): 4 Chair/Bcb-xi-Xyntc Xfer(QC): 4 Toilet Transfer (QC): 4 Car Transfer (QC): 4 Does the Patient Walk: No and Walking Goal IS indicated Walk 10 feet (QC): 4 Walk 50ft with 2 Turns (QC): 4 Walk 150 ft (QC): 4 Walking 10ft on Uneven Surface: 4 1 Step (curb) (QC): 4 4 Steps (QC): 4 12 Steps (QC): 88 Picking up an Object (QC): 88 Wheel 50 feet with 2 turns (QC: 6 Wheel 150 feet: 6 PT Plan Problem List Problem List: Activity Tolerance Treatment/Plan Treatment Plan: Continue Plan of Care Treatment Plan: Bed Mobility, Education, Functional Activity Babatunde, Functional Strength, Group Therapy, Gait, Safety, Therapeutic Exercise, Transfers Treatment Duration: Sep 18, 2020 Frequency: At least 5 of 7 days/Wk (IRF) Estimated Hrs Per Day: 1.5 hours per day Patient and/or Family Agrees t: Yes Safety Risks/Education Patient Education: Transfer Techniques Teaching Recipient: Patient Teaching Methods: Demonstration, Discussion Response to Teaching: Verbalize Understanding, Return Demonstration Time/GCodes Time In: 1330 Time Out: 1400 Total Billed Treatment Time: 30 Total Billed Treatment 1, EX (20m), GT (10m) ELLEN LINARES PTA Sep 03, 2020 15:00
[2020-09-03] MEDS: TAMSULOSIN 0.4 MG (FLOMAX) CAP PO SCH (18:05)
[2020-09-03 20:00] VITALS: BP 127/75
[2020-09-03] MEDS: ALPRAZolam 0.25 MG (XANAX) TAB PO PRN (21:36)
[2020-09-03] MEDS: AMITRIPTYLINE 50 MG (ELAVIL) TAB PO SCH (21:36)
[2020-09-03] MEDS: MELATONIN 3 MG TABLET PO PRN (21:36)
[2020-09-04] MEDS: LEVOTHYROXINE 100 MCG (LEVOTHROID) TAB PO SCH (06:14)
[2020-09-04] MEDS: BETHANECHOL 25 MG (URECHOLINE) TAB PO SCH ×4 (06:14→20:25)
[2020-09-04] MEDS: LEVOTHYROXINE 75 MCG (LEVOTHROID) TABLET PO SCH (06:14)
[2020-09-04] MEDS: SUCRALFATE 1 GM (CARAFATE) TAB PO SCH ×4 (06:14→20:25)
[2020-09-04] MEDS: inSUlin ASPART (NovoLOG) 1 UNIT/0.01 ML (CHARGE PER UNIT) SC SCH ×4 (06:31→20:40)
[2020-09-04 06:42] LABS: BASOPHILS # (AUTO) 0.1 10^3/uL (0.0-0.1); BASOPHILS % (AUTO) 0 % (0-10); EOSINOPHILS # (AUTO) 0.2 10^3/uL (0.0-0.3); EOSINOPHILS % (AUTO) 1 % (0-10); HEMATOCRIT 30 % (35-52); HEMOGLOBIN 9.7 g/dL (11.5-16.0); LYMPHOCYTES # (AUTO) 3.5 10^3/uL (1.0-4.0); LYMPHOCYTES % (AUTO) 23 % (12-44); MEAN CORPUSCULAR HEMOGLOBIN 32 pg (25-34); MEAN CORPUSCULAR HGB CONC 33 g/dL (32-36); MEAN CORPUSCULAR VOLUME 99 fL (80-99); MEAN PLATELET VOLUME 9.6 fL (9.0-12.2); MONOCYTES # (AUTO) 0.8 10^3/uL (0.0-1.0); MONOCYTES % (AUTO) 5 % (0-12); NEUTROPHILS # (AUTO) 10.8 10^3/uL (1.8-7.8); NEUTROPHILS % (AUTO) 69 % (42-75); PLATELET COUNT 546 10^3/uL (130-400); WHITE BLOOD COUNT 15.5 10^3/uL (4.3-11.0)
[2020-09-04 06:55] LABS: ALBUMIN 3.1 GM/DL (3.2-4.5)
[2020-09-04 06:56] LABS: CHLORIDE 93 MMOL/L (98-107); POTASSIUM 3.5 MMOL/L (3.6-5.0); SODIUM 137 MMOL/L (135-145)
[2020-09-04 06:57] LABS: CALCIUM 8.5 MG/DL (8.5-10.1)
[2020-09-04 06:58] LABS: GLUCOSE 185 MG/DL (70-105); TOTAL PROTEIN 5.8 GM/DL (6.4-8.2)
[2020-09-04 06:59] LABS: CARBON DIOXIDE 33 MMOL/L (21-32)
[2020-09-04 07:00] LABS: BILIRUBIN,TOTAL 0.7 MG/DL (0.1-1.0)
[2020-09-04 07:01] LABS: ALKALINE PHOSPHATASE 231 U/L (40-136)
[2020-09-04 07:02] LABS: GFR ESTIMATED > 60
[2020-09-04 07:03] LABS: BUN/CREATININE RATIO 14
[2020-09-04 07:04] LABS: ALANINE AMINOTRANSFERASE 33 U/L (0-55)
[2020-09-04] MEDS: CYCLOBENZAPRINE 10 MG (FLEXERIL) TAB PO PRN ×2 (07:06→20:25)
[2020-09-04] MEDS: amLODIPine 5 MG (NORVASC) TAB PO SCH (07:50)
[2020-09-04] MEDS: lisINopril 10 MG (PRINIVIL) TABLET PO SCH (07:50)
[2020-09-04] MEDS: IRON SUCROSE 200 MG/10 ML (VENOFER) VIAL IV SCH (07:50)
[2020-09-04] MEDS: ASPIRIN E.C. 325 MG (ECOTRIN) TABLET PO SCH (07:50)
[2020-09-04] MEDS: KCL 10 MEQ TAB (MICRO K) PO SCH ×3 (07:50→18:11)
[2020-09-04] MEDS: fluCOnazole (DIFLUCAN) 100 MG TAB PO SCH (07:50)
[2020-09-04] MEDS: PANTOPRAZOLE 40 MG (PROTONIX) TAB PO SCH (07:50)
[2020-09-04] MEDS: CARVEDILOL 12.5 MG (COREG) TABLET PO SCH ×2 (07:51→20:25)
[2020-09-04] MEDS: NICOTINE PATCH REMOVAL TP SCH (07:53)
[2020-09-04] MEDS: MICONAZOLE NITRATE 2% CRM 30 GM TP SCH ×4 (07:54→20:40)
[2020-09-04] MEDS: NICOTINE 21 MG (NICODERM) PATCH TD SCH (07:54)
[2020-09-04 08:00] VITALS: BP 145/68
--- NOTE | 2020-09-04 10:47 | PM&R Progress Note ---
Subjective HPI/CC On Admission Date Seen by Provider: Sep 04, 2020 Time Seen by Provider: 11:00 Subjective/Events-last exam 09/04/20: Wrist fracture eval from outpatient Venofer given JOSE's on Potassium 3.5 Hgb 9.7 Elevated wbc is chronic 09/03/20: No BM yet last one was 08/31 Bladder scanning and doing pretty well Dr. Keen managing Had a straight cath last night Diflucan changed to oral today 09/02/20: Pt doing pretty well Walking around much better Voiding 500 CCs had 125 on bladder scan but the straight cath later this morning obtained 700 CCs Urecholine started BP 170/80 so restarted Lisinopril and Amlodipine Decreasing Levemir because her sugar was 83 09/01/20: Pt doing a lot better today DC Pollock catheter Improved on transfers WBC 18.5, procalcitonin and lactic acid is normal Hgb 8.6 IV Venofer is maintained 08/31/20: Pt doing pretty well Was able to walk today Discontinue catheter soon Yeast UTI requiring Diflucan IV Left humerus and shoulder X-ray obtained Had a small BM after multiple attempts Antibiotics still on board Potassium 3.2 so changed the potassium to TID with meals Carafate initiated at her request, she has terrible reflux 08/30/20: BP is much improved Patient feels good Pollock cath to remain until she is able to get out of bed Moving around in bed a lot today Supp did not work so giving fleets and if no results will give SSE HLIVF today Talked about left arm pain no trauma but will get xray tomorrow 08/29/20: Patient doing better today Was able to get on side of bed today on her own Pain more controlled UTI dx on UA so Cefepime started due to high risk for Pseudomonas as bacterial source Hypotension noted and she was asymptomatic like she was yesterday giving rise to assumption she has orthostasis and autonomic dysfunction due to DM Florinef ordered and JOSE and DANIA wraps on her legs Decreasing Coreg to 12.5 PO BID 08/28/20: Much improved status Multiple issues are addressed No BM for 3 weeks and started to move a bit with supp Vaginal yeast infection Pollock catheter maintained Dr Keen consulted Pain is an issue Hypoglycemia noted Review of Systems General: Fatigue, Malaise Musculoskeletal: arm pain, back pain Objective Exam Vital Signs Vital Signs Date Time Temp Pulse Resp B/P (MAP) Pulse Ox O2 Delivery O2 Flow Rate FiO2 09/05/20 09:00 Room Air 09/05/20 07:30 36.2 73 18 142/72 (95) 94 Capillary Refill : General Appearance: No Apparent Distress, WD/WN, Anxious, Chronically ill, Thin HEENT: PERRL/EOMI, Normal ENT Inspection, Pharynx Normal Neck: Full Range of Motion, Normal Inspection, Non Tender, Supple, Carotid Bruit Respiratory: Chest Non Tender, Lungs Clear, Normal Breath Sounds, No Accessory Muscle Use, No Respiratory Distress Cardiovascular: Regular Rate, Rhythm, No Edema, No Gallop, No JVD, No Murmur, Normal Peripheral Pulses Gastrointestinal: Normal Bowel Sounds, No Organomegaly, No Pulsatile Mass, Non Tender, Soft Back: Decreased Range of Motion, Muscle Spasm, Vertebral Tenderness Extremity: Normal Capillary Refill, Normal Inspection, Normal Range of Motion, Non Tender, No Calf Tenderness, No Pedal Edema Neurologic/Psychiatric: Alert, Oriented x3, No Motor/Sensory Deficits, Normal Mood/Affect, thumb sewer II-XII Norm as Tested, Abnormal Gait, Motor Weakness (lower legs) Skin: Normal Color, Warm/Dry Lymphatic: No Adenopathy Results/Procedures Lab Patient resulted labs reviewed. FIM Transfers Therapy Code Descriptions/Definitions Functional [place] Measure: 0=Not Assessed/NA 4=Minimal Assistance 1=Total Assistance 5=Supervision or Setup 2=Maximal Assistance 6=Modified [place] 3=Moderate Assistance 7=Complete IndependenceSCALE: Activities may be completed with or without assistive devices. 2-Qhxepguswe-efvcoyj completes the activity by him/herself with no assistance from a helper. 5-Set-up or Clean-up Assistance-helper sets up or cleans up; patient completes activity. [place] assists only prior to or following the activity. 4-Supervision or Touching Assistance-helper provides verbal cues and/or touching/steadying and/or contact guard assistance as patient completes activity. Assistance may be provided throughout the activity or intermittently. 3-Partial/Moderate Assistance-helper does LESS THAN HALF the effort. [place] lifts, holds or supports trunk or limbs, but provides less than half the effort. 2-Substantial/Maximal Assistance-helper does MORE THAN HALF the effort. [place] lifts or holds trunk or limbs and provides more than half the effort. 2-Djhwwwiaj-pqkssm does ALL the effort. Patient does none of the effort to complete the activity. Or, the assistance of 2 or more helpers is required for the patient to complete the activity. If activity was not attempted, code reason: 7-Patient Refused. 9-Not Applicable-not attempted and the patient did not perform the activity before the current illness, exacerbation or injury. 10-Not Attempted due to Environmental Limitations-(lack of equipment, weather restraints, etc.). 88-Not Attempted due to Medical Conditions or Safety Concerns. Roll Left to Right (QC): 5 Sit to Lying (QC): 5 Sit to Stand (QC): 4 Chair/Qps-on-Xualr Xfer(QC): 4 Car Transfer (QC): 88 Gait Training Does the Patient Walk?: Yes Distance: 375' Walk 10 feet (QC): 5 Walk 50 ft with 2 Turns(QC): 5 (wide turns) Walk 150 ft (QC): 5 Walking 10ft/uneven surface-QC: 88 Gait Persons Needed: 1 Gait Assistive Device: Walker Platform Wheelchair Training Does the Pt Use a Wheelchair?: No Wheel 50 ft with 2 turns (QC): 88 Wheel 150 ft (QC): 88 Stair Training 1 Step (curb) (QC): 88 4 Steps (QC): 88 12 Steps (QC): 88 Balance Picking up an Object (QC): 88 ADL-Treatment Eating (QC): 5 (set up assist, assist to open containers. Pt then able to use utensils with L hand to eat.) Oral Hygiene (QC): 4 (SBA standing at sink.) Bathing Location: L Arm, R Arm, Chest, Abdomen, Perineal Area Shower/Bathe Self (QC): 3 (Pt able to wash all parts seated, assist to dry L arm pit.) Upper Body Dressing (QC): 2 (Max A with warehouse puller shirt due to pt's reports of muscle spasms. Total assist donning/doffing back brace.) Lower Body Dressing (QC): 2 (Pt required assist threading LLE and pant hike, pt able to thread RLE using AE.) On/Off Footwear (QC): 3 (Pt doffed socks using dressing stick, donned socks using figure 4 method. OT educated pt on 1 handed technique) Toileting Hygiene (QC): 3 (Pt able to manage pants down, assist with pant hike. ) Toilet Transfer (QC): 3 (CGA stand to sit, min A sit to stand from [facility] over toilet.) Assessment/Plan Assessment and Plan Assess & Plan/Chief Complaint Status post fall with T12 burst fracture s/p laminectomy and fusion 08/24/2020 X- ray of the pelvis negative for acute osseous abnormality. Right wrist fracture Hypovitaminosis D: Continue ergocalciferol. Acute kidney injury: Resolved. Hypochloremic hyponatremia: Improved significantly. Hypophosphatemia: s/p Sodium phosphate 15 mmol x 1. Leukocytosis: Essential hypertension but hypotensive here at IRF so decreased Coreg and started Florinef and JOSE/DANIA to legs Mixed hyperlipidemia: Acquired hypothyroidism: Continue Synthroid. Diabetes mellitus type 2: Continued Lantus and lispro but holding long acting due to hypoglycemia GERD: Protonix. Mood disorder: Continue Elavil and Lexapro. ANALISA: Nocturnal CPAP. Yeast vaginitis Orthostasis placed on IVF and Florinef UTI yeast placed on diflucan 08/30/20 Pollock cath required due to urinary retention consulting Dr Keen Plan: IRF protocol Pain control IVF 08/28/20: BM regimen Yeast treamtent Pain control Hold insulin 08/29/20: Florinef JOSE/DANIA wraps IVF Cefepime for UTI 08/30/20 Added Diflucan HLIVF 08/31/20: Monitor closely DC pollock soon 09/01/20: DC pollock Diflucan Monitor closely 09/02/20: DC Cefepime Diflucan Bladder meds 09/03/20: Bladder management Diflucan Insulin 09/04/20: Monitor labs Diflucan PO Monistat cream (1) Burst fracture of thoracic vertebra Status: Acute ASHLYN WINTERS DO Sep 04, 2020 10:47
--- NOTE | 2020-09-04 10:58 | Occ Therapy Progress Note ---
Therapy Progress Note Pt is out of hospital at an appointment this morning, OT will attempt tx when pt returns. YUNIEL GILBERT OT Sep 04, 2020 10:58
[2020-09-04] MEDS: polyethylene glycoL POWDER 17 GM (MIRALAX) PACK PO SCH ×2 (12:19→20:26)
[2020-09-04] MEDS: DOCUSATE SODIUM 100 MG (COLACE) CAP PO SCH ×2 (12:19→20:25)
[2020-09-04] MEDS: SENNA W/DOCUSATE (SENOKOT S) TABLET PO SCH ×2 (12:19→20:25)
--- NOTE | 2020-09-04 13:25 | Occupational Ther Daily Note ---
OT Current Status-Daily Note Subjective Pt in bed after returning from her dr appointment out of hospital. Pt reports increased pain in her back and fatigue from car ride. When she arrived at her appointment, she was told her appointment was not for another hour and had to wait, increasing her fatigue and discomfort. Agrees to therapy with focus on repositioning, rolling, and bed mobility only. 7/10 pain in back. Pt asked to rest and resume therapy a different day. Pt has wrist brace on RUE after appointment, states she is allowed to take it off during shower. She indicates she will have to have surgery on her R wrist ADL-Treatment Therapy Code Descriptions/Definitions Functional [place] Measure: 0=Not Assessed/NA 4=Minimal Assistance 1=Total Assistance 5=Supervision or Setup 2=Maximal Assistance 6=Modified [place] 3=Moderate Assistance 7=Complete IndependenceSCALE: Activities may be completed with or without assistive devices. 8-Qxrzcwybpe-owxcpio completes the activity by him/herself with no assistance from a helper. 5-Set-up or Clean-up Assistance-helper sets up or cleans up; patient completes activity. [place] assists only prior to or following the activity. 4-Supervision or Touching Assistance-helper provides verbal cues and/or touching/steadying and/or contact guard assistance as patient completes activity. Assistance may be provided throughout the activity or intermittently. 3-Partial/Moderate Assistance-helper does LESS THAN HALF the effort. [place] lifts, holds or supports trunk or limbs, but provides less than half the effort. 2-Substantial/Maximal Assistance-helper does MORE THAN HALF the effort. [place] lifts or holds trunk or limbs and provides more than half the effort. 3-Gslsmhyxh-inhgeb does ALL the effort. Patient does none of the effort to complete the activity. Or, the assistance of 2 or more helpers is required for the patient to complete the activity. If activity was not attempted, code reason: 7-Patient Refused. 9-Not Applicable-not attempted and the patient did not perform the activity before the current illness, exacerbation or injury. 10-Not Attempted due to Environmental Limitations-(lack of equipment, weather restraints, etc.). 88-Not Attempted due to Medical Conditions or Safety Concerns. Eating (QC): 5 (set up assist) Other Treatment OT/PT cotreat due to skill of 2 clinicians required which a rehabilitation manager could not perform in order to coordinate UE/LEs and due to pt's limitations in strength/mobility, fatigue, pain level. OT focused on ADLs, UE placement, PT focused on LE placement, gross overall movements, and repositioning. Pt laying in bed, required assistance to scoot up towards HOB to reposition for meal. OT encouraged pt to participate in ADL tx with focus on showering and educated pt on purpose and benefit of therapy, but pt declines as she is in increased pain and is fatigued from car ride to/from dr appointment. OT assisted pt with setting up lunch, opening containers for pt. Pt declined further tx on this date due to fatigue and pain, unable to tolerate any further tx. OT to see pt next available date. Post tx, pt laying in bed, call light in reach and all needs met. Education OT Patient Education: Correct positioning, Modified ADL techniques, Progress toward Goal/Update tx plan, Purpose of tx/functional activities, Rehab process Teaching Recipient: Patient Teaching Methods: Discussion Response to Teaching: Verbalize Understanding OT Short Term Goals Short Term Goals Time Frame: Sep 09, 2020 Toileting hygiene: 3 Shower/bathe self: 3 Upper body dressin Lower body dressin Putting on/taking off footwear: 3 OT Microfilm Machine Operator Goals Microfilm Machine Operator Goals Time Frame: September 25, 2020 Eating (QC): 6 Oral Hygiene (QC): 6 Toileting Hygiene (QC): 4 Shower/Bathe Self (QC): 4 Upper Body Dressing (QC): 5 Lower Body Dressing (QC): 4 On/Off Footwear (QC): 4 Additional Goals: 1-Demonstrate ADL Tasks, 2-Verbalize Understanding, 3-I mproveStrength/Babatunde 1=Demonstrate adherence to instructed precautions during ADL tasks. 2=Patient will verbalize/demonstrate understanding of assistive devices/modifications for ADL. 3=Patient will improve strength/tolerance for activity to enable patient to perform ADL's. OT Education/Plan Problem List/Assessment Assessment: Decreased Activ Tolerance, Decreased UE Strength, Impaired I ADL's, Impaired Self-Care Skills, Restricted Funct UE ROM Discharge Recommendations Plan/Recommendations: Continue POC Treatment Plan/Plan of Care Patient would benefit from OT for education, treatment and training to promote independence in ADL's, mobility, safety and/or upper extremity function for ADL's. Plan of Care: ADL Retraining, Functional Mobility, Group Exercise/Act as Ind, UE Funct Exercise/Act Treatment Duration: September 25, 2020 Frequency: At least 5 of 7 days/Wk (IRF) Estimated Hrs Per Day: 1.5 hours per day Rehab Potential: Guarded Time/GCodes Start Time: 13:05 Stop Time: 13:20 Total Time Billed (hr/min): 15 Billed Treatment Time cotreat x15 1, ADL YUNIEL GILBERT OT Sep 04, 2020 13:25
[2020-09-04] MEDS ORDERED: ASPI-1238 PO (14:12)
[2020-09-04] MEDS ORDERED: OMEP1CAP25 PO (14:12)
[2020-09-04] MEDS ORDERED: IBUP-2473 PO (14:14)
[2020-09-04] MEDS ORDERED: ACET-2267 PO (14:14)
[2020-09-04] MEDS ORDERED: MULT-1136 PO (14:18)
[2020-09-04] MEDS ORDERED: DOCU-241 PO (14:18)
[2020-09-04] MEDS ORDERED: LEVO200T6 PO (14:31)
--- NOTE | 2020-09-04 15:13 | Physical Therapy Daily Note ---
PT Daily Note-Current Subjective Pt. in bed just back from Dr escobar. Pt. c/o fatigue and states she arrived and was told she wasnt due for appt for another hr and had to sit which increased her fatigue and discomfort. Pt. agrees only to positioning, rolling and bed mob. c/o increased pain at 7/10 in back . Pt. asked to rest and wants to resume her therapy in AM Pain Numeric Pain Scale: 7 Location: Medial Location Body Site: Back Pain Description: Pressure Mental Status Patient Orientation: Normal For Age Transfers SCALE: Activities may be completed with or without assistive devices. 2-Evphnresku-cmkxicw completes the activity by him/herself with no assistance from a helper. 5-Set-up or Clean-up Assistance-helper sets up or cleans up; patient completes activity. [place] assists only prior to or following the activity. 4-Supervision or Touching Assistance-helper provides verbal cues and/or touching/steadying and/or contact guard assistance as patient completes activity. Assistance may be provided throughout the activity or intermittently. 3-Partial/Moderate Assistance-helper does LESS THAN HALF the effort. [place] lifts, holds or supports trunk or limbs, but provides less than half the effort. 2-Substantial/Maximal Assistance-helper does MORE THAN HALF the effort. [place] lifts or holds trunk or limbs and provides more than half the effort. 6-Pzsmhtwmz-apmfkz does ALL the effort. Patient does none of the effort to complete the activity. Or, the assistance of 2 or more helpers is required for the patient to complete the activity. If activity was not attempted, code reason: 7-Patient Refused. 9-Not Applicable-not attempted and the patient did not perform the activity before the current illness, exacerbation or injury. 10-Not Attempted due to Environmental Limitations-(lack of equipment, weather restraints, etc.). 88-Not Attempted due to Medical Conditions or Safety Concerns. pushes up in bed with LEs and mod assist of PT OT for up in bed. pt partially rolling left and right with SBA Weight Bearing Right Lower Extremity: Right Weight Bearing/Tolerated Left Lower Extremity: Left Weight Bearing/Tolerated NO WEIGHT BEARING RIGHT UPPER EXTREMITY Exercises Supine Ex: Rolling, Scooting Supine Reps: 4 Assessment Current Status: Fair Progress pt. very fatigued and in pain this PM, no tolerance for further Rx, PT to resume 4-17 PT Short Term Goals Short Term Goals Time Frame: Sep 04, 2020 Roll Left & Right: 3 Sit to lyin Lying to sitting on side of be: 3 Sit to stand: 3 Chair/upt-fi-qskha transfer: 3 Toilet transfer: 3 Car transfer: 3 Walk 10 feet: 3 Walk 50 feet with two turns: 3 Walk 150 feet: 3 Walking 10ft on uneven surface: 3 1 step (curb): 3 4 steps: 3 Picking up objects: 88 PT Longterm Goals Longterm Goals PT Longterm Goals Time Frame: Sep 18, 2020 Roll Left & Right (QC): 4 Sit to Lying (QC): 4 Lying-Sitting on Side/Bed(QC): 4 Sit to Stand (QC): 4 Chair/Aoj-im-Rmqan Xfer(QC): 4 Toilet Transfer (QC): 4 Car Transfer (QC): 4 Does the Patient Walk: No and Walking Goal IS indicated Walk 10 feet (QC): 4 Walk 50ft with 2 Turns (QC): 4 Walk 150 ft (QC): 4 Walking 10ft on Uneven Surface: 4 1 Step (curb) (QC): 4 4 Steps (QC): 4 12 Steps (QC): 88 Picking up an Object (QC): 88 Wheel 50 feet with 2 turns (QC: 6 Wheel 150 feet: 6 PT Plan Treatment/Plan Treatment Plan: Continue Plan of Care Treatment Plan: Bed Mobility, Education, Functional Activity Babatunde, Functional Strength, Group Therapy, Gait, Safety, Therapeutic Exercise, Transfers Treatment Duration: Sep 18, 2020 Frequency: At least 5 of 7 days/Wk (IRF) Estimated Hrs Per Day: 1.5 hours per day Patient and/or Family Agrees t: Yes Safety Risks/Education Patient Education: Correct Positioning, Safety Issues Teaching Recipient: Patient Teaching Methods: Demonstration, Discussion Response to Teaching: Verbalize Understanding, Return Demonstration, Reinforcement Needed importance of therapies and activity was emphasized Time/GCodes Time In: 1305 Time Out: 1320 Total Billed Treatment Time: 15 Total Billed Treatment 1,FA15m PT OT co Rx MAGALY BATISTA WOOLEN TESTER Sep 04, 2020 15:13
[2020-09-04] MEDS: TAMSULOSIN 0.4 MG (FLOMAX) CAP PO SCH (18:11)
[2020-09-04 20:00] VITALS: BP 111/73
[2020-09-04] MEDS: ALPRAZolam 0.25 MG (XANAX) TAB PO PRN (20:25)
[2020-09-04] MEDS: MELATONIN 3 MG TABLET PO PRN (20:25)
[2020-09-04] MEDS: AMITRIPTYLINE 50 MG (ELAVIL) TAB PO SCH (20:25)
[2020-09-05] MEDS: SUCRALFATE 1 GM (CARAFATE) TAB PO SCH ×4 (06:11→21:27)
[2020-09-05] MEDS: BETHANECHOL 25 MG (URECHOLINE) TAB PO SCH ×4 (06:11→21:27)
[2020-09-05] MEDS: LEVOTHYROXINE 75 MCG (LEVOTHROID) TABLET PO SCH (06:11)
[2020-09-05] MEDS: LEVOTHYROXINE 100 MCG (LEVOTHROID) TAB PO SCH (06:11)
[2020-09-05] MEDS: inSUlin ASPART (NovoLOG) 1 UNIT/0.01 ML (CHARGE PER UNIT) SC SCH ×4 (06:35→21:28)
[2020-09-05 07:30] VITALS: BP 142/72
[2020-09-05] MEDS: NICOTINE PATCH REMOVAL TP SCH (09:20)
[2020-09-05] MEDS: KCL 10 MEQ TAB (MICRO K) PO SCH ×3 (09:20→18:12)
[2020-09-05] MEDS: CARVEDILOL 12.5 MG (COREG) TABLET PO SCH ×2 (09:20→21:28)
[2020-09-05] MEDS: fluCOnazole (DIFLUCAN) 100 MG TAB PO SCH (09:20)
[2020-09-05] MEDS: lisINopril 10 MG (PRINIVIL) TABLET PO SCH (09:20)
[2020-09-05] MEDS: NICOTINE 21 MG (NICODERM) PATCH TD SCH (09:20)
[2020-09-05] MEDS: MICONAZOLE NITRATE 2% CRM 30 GM TP SCH ×4 (09:20→21:32)
[2020-09-05] MEDS: PANTOPRAZOLE 40 MG (PROTONIX) TAB PO SCH (09:20)
[2020-09-05] MEDS: amLODIPine 5 MG (NORVASC) TAB PO SCH (09:20)
[2020-09-05] MEDS: ASPIRIN E.C. 325 MG (ECOTRIN) TABLET PO SCH (09:20)
[2020-09-05] MEDS: polyethylene glycoL POWDER 17 GM (MIRALAX) PACK PO SCH ×2 (09:56→21:32)
[2020-09-05] MEDS: SENNA W/DOCUSATE (SENOKOT S) TABLET PO SCH ×2 (09:56→21:32)
[2020-09-05] MEDS: DOCUSATE SODIUM 100 MG (COLACE) CAP PO SCH ×2 (09:56→21:32)
--- NOTE | 2020-09-05 11:08 | Physical Therapy Daily Note ---
PT Daily Note-Current Subjective Pt is agreeable to treatment. She is sitting edge of bed with the jaquez brace and wrist brace donned. Mental Status Patient Orientation: Person, Place, Time, Situation Transfers SCALE: Activities may be completed with or without assistive devices. 1-Vstactvgtt-rwntrqw completes the activity by him/herself with no assistance from a helper. 5-Set-up or Clean-up Assistance-helper sets up or cleans up; patient completes activity. [place] assists only prior to or following the activity. 4-Supervision or Touching Assistance-helper provides verbal cues and/or touching/steadying and/or contact guard assistance as patient completes activity. Assistance may be provided throughout the activity or intermittently. 3-Partial/Moderate Assistance-helper does LESS THAN HALF the effort. [place] lifts, holds or supports trunk or limbs, but provides less than half the effort. 2-Substantial/Maximal Assistance-helper does MORE THAN HALF the effort. [place] lifts or holds trunk or limbs and provides more than half the effort. 7-Oitzulifo-lloknw does ALL the effort. Patient does none of the effort to complete the activity. Or, the assistance of 2 or more helpers is required for the patient to complete the activity. If activity was not attempted, code reason: 7-Patient Refused. 9-Not Applicable-not attempted and the patient did not perform the activity before the current illness, exacerbation or injury. 10-Not Attempted due to Environmental Limitations-(lack of equipment, weather restraints, etc.). 88-Not Attempted due to Medical Conditions or Safety Concerns. Sit to Stand (QC): 6 Weight Bearing Right Lower Extremity: Right Weight Bearing/Tolerated Left Lower Extremity: Left Weight Bearing/Tolerated NO WEIGHT BEARING RIGHT UPPER EXTREMITY Gait Training Does the Patient Walk?: Yes Distance: 600ft Walk 10 feet (QC): 6 Walk 50 ft with 2 Turns(QC): 6 Walk 150 ft (QC): 6 Gait Persons Needed: 1 Gait Assistive Device: Walker Platform Assessment Current Status: Good Progress Pt is ambulating and transferring very safely with only supervision required. PT Short Term Goals Short Term Goals Time Frame: Sep 04, 2020 Roll Left & Right: 3 Sit to lyin Lying to sitting on side of be: 3 Sit to stand: 3 Chair/lzm-xa-ripvb transfer: 3 Toilet transfer: 3 Car transfer: 3 Walk 10 feet: 3 Walk 50 feet with two turns: 3 Walk 150 feet: 3 Walking 10ft on uneven surface: 3 1 step (curb): 3 4 steps: 3 Picking up objects: 88 PT Peritoneal Dialysis Registered Nurse Goals [facility] Goals PT Peritoneal Dialysis Registered Nurse Goals Time Frame: Sep 18, 2020 Roll Left & Right (QC): 4 Sit to Lying (QC): 4 Lying-Sitting on Side/Bed(QC): 4 Sit to Stand (QC): 4 Chair/Ztm-vf-Cdikg Xfer(QC): 4 Toilet Transfer (QC): 4 Car Transfer (QC): 4 Does the Patient Walk: No and Walking Goal IS indicated Walk 10 feet (QC): 4 Walk 50ft with 2 Turns (QC): 4 Walk 150 ft (QC): 4 Walking 10ft on Uneven Surface: 4 1 Step (curb) (QC): 4 4 Steps (QC): 4 12 Steps (QC): 88 Picking up an Object (QC): 88 Wheel 50 feet with 2 turns (QC: 6 Wheel 150 feet: 6 PT Plan Treatment/Plan Treatment Plan: Continue Plan of Care Treatment Plan: Bed Mobility, Education, Functional Activity Babatunde, Functional Strength, Group Therapy, Gait, Safety, Therapeutic Exercise, Transfers Treatment Duration: Sep 18, 2020 Frequency: At least 5 of 7 days/Wk (IRF) Estimated Hrs Per Day: 1.5 hours per day Patient and/or Family Agrees t: Yes Time/GCodes Time In: 954 Time Out: 1010 Total Billed Treatment Time: 15 Total Billed Treatment 1, gt 15 SON STUART PT Sep 05, 2020 11:08
--- NOTE | 2020-09-05 12:52 | PM&R Progress Note ---
Subjective HPI/CC On Admission Date Seen by Provider: Sep 05, 2020 Time Seen by Provider: 13:00 Subjective/Events-last exam 09/05/20: Patient doing well Right wrist brace is a soft brace and not as supportive so accommodating that Monitor closely Pain controlled No vomiting Sugars and BP ok 09/04/20: Wrist fracture eval from outpatient Venofer given JOSE's on Potassium 3.5 Hgb 9.7 Elevated wbc is chronic 09/03/20: No BM yet last one was 08/31 Bladder scanning and doing pretty well Dr. Keen managing Had a straight cath last night Diflucan changed to oral today 09/02/20: Pt doing pretty well Walking around much better Voiding 500 CCs had 125 on bladder scan but the straight cath later this morning obtained 700 CCs Urecholine started BP 170/80 so restarted Lisinopril and Amlodipine Decreasing Levemir because her sugar was 83 09/01/20: Pt doing a lot better today DC Pollock catheter Improved on transfers WBC 18.5, procalcitonin and lactic acid is normal Hgb 8.6 IV Venofer is maintained 08/31/20: Pt doing pretty well Was able to walk today Discontinue catheter soon Yeast UTI requiring Diflucan IV Left humerus and shoulder X-ray obtained Had a small BM after multiple attempts Antibiotics still on board Potassium 3.2 so changed the potassium to TID with meals Carafate initiated at her request, she has terrible reflux 08/30/20: BP is much improved Patient feels good Pollock cath to remain until she is able to get out of bed Moving around in bed a lot today Supp did not work so giving fleets and if no results will give SSE HLIVF today Talked about left arm pain no trauma but will get xray tomorrow 08/29/20: Patient doing better today Was able to get on side of bed today on her own Pain more controlled UTI dx on UA so Cefepime started due to high risk for Pseudomonas as bacterial source Hypotension noted and she was asymptomatic like she was yesterday giving rise to assumption she has orthostasis and autonomic dysfunction due to DM Florinef ordered and JOSE and DANIA wraps on her legs Decreasing Coreg to 12.5 PO BID 08/28/20: Much improved status Multiple issues are addressed No BM for 3 weeks and started to move a bit with supp Vaginal yeast infection Pollock catheter maintained Dr Keen consulted Pain is an issue Hypoglycemia noted Review of Systems General: Fatigue, Malaise Musculoskeletal: arm pain, back pain Neurological: Weakness Objective Exam Vital Signs Vital Signs Date Time Temp Pulse Resp B/P (MAP) Pulse Ox O2 Delivery O2 Flow Rate FiO2 09/05/20 21:00 Room Air 09/05/20 20:02 37.1 76 18 131/72 (91) 93 Capillary Refill : General Appearance: No Apparent Distress, WD/WN, Anxious, Chronically ill, Thin HEENT: PERRL/EOMI, Normal ENT Inspection, Pharynx Normal Neck: Full Range of Motion, Normal Inspection, Non Tender, Supple, Carotid Bruit Respiratory: Chest Non Tender, Lungs Clear, Normal Breath Sounds, No Accessory Muscle Use, No Respiratory Distress Cardiovascular: Regular Rate, Rhythm, No Edema, No Gallop, No JVD, No Murmur, Normal Peripheral Pulses Gastrointestinal: Normal Bowel Sounds, No Organomegaly, No Pulsatile Mass, Non Tender, Soft Back: Decreased Range of Motion, Muscle Spasm, Vertebral Tenderness Extremity: Normal Capillary Refill, Normal Inspection, Normal Range of Motion, Non Tender, No Calf Tenderness, No Pedal Edema Neurologic/Psychiatric: Alert, Oriented x3, No Motor/Sensory Deficits, Normal Mood/Affect, analysis manager II-XII Norm as Tested, Abnormal Gait, Motor Weakness (lower legs) Skin: Normal Color, Warm/Dry Lymphatic: No Adenopathy Results/Procedures Lab Patient resulted labs reviewed. [facility]IM Transfers Therapy Code Descriptions/Definitions Functional [place] Measure: 0=Not Assessed/NA 4=Minimal Assistance 1=Total Assistance 5=Supervision or Setup 2=Maximal Assistance 6=Modified [place] 3=Moderate Assistance 7=Complete IndependenceSCALE: Activities may be completed with or without assistive devices. 1-Nfatficjqd-ltxeuas completes the activity by him/herself with no assistance f rom a helper. 5-Set-up or Clean-up Assistance-helper sets up or cleans up; patient completes activity. [place] assists only prior to or following the activity. 4-Supervision or Touching Assistance-helper provides verbal cues and/or touching/steadying and/or contact guard assistance as patient completes activity. Assistance may be provided throughout the activity or intermittently. 3-Partial/Moderate Assistance-helper does LESS THAN HALF the effort. [place] lifts, holds or supports trunk or limbs, but provides less than half the effort. 2-Substantial/Maximal Assistance-helper does MORE THAN HALF the effort. [place] lifts or holds trunk or limbs and provides more than half the effort. 9-Jaztaibpa-gzkxer does ALL the effort. Patient does none of the effort to complete the activity. Or, the assistance of 2 or more helpers is required for the patient to complete the activity. If activity was not attempted, code reason: 7-Patient Refused. 9-Not Applicable-not attempted and the patient did not perform the activity before the current illness, exacerbation or injury. 10-Not Attempted due to Environmental Limitations-(lack of equipment, weather restraints, etc.). 88-Not Attempted due to Medical Conditions or Safety Concerns. Roll Left to Right (QC): 5 Sit to Lying (QC): 5 Sit to Stand (QC): 6 Chair/Rah-hu-Rndxc Xfer(QC): 4 Car Transfer (QC): 88 Gait Training Does the Patient Walk?: Yes Distance: 600ft Walk 10 feet (QC): 6 Walk 50 ft with 2 Turns(QC): 6 Walk 150 ft (QC): 6 Walking 10ft/uneven surface-QC: 88 Gait Persons Needed: 1 Gait Assistive Device: Walker Platform Wheelchair Training Does the Pt Use a Wheelchair?: No Wheel 50 ft with 2 turns (QC): 88 Wheel 150 ft (QC): 88 Stair Training 1 Step (curb) (QC): 88 4 Steps (QC): 88 12 Steps (QC): 88 Balance Picking up an Object (QC): 88 ADL-Treatment Eating (QC): 5 (set up assist) Oral Hygiene (QC): 4 (SBA standing at sink.) Bathing Location: L Arm, R Arm, Chest, Abdomen, Perineal Area Shower/Bathe Self (QC): 3 (Pt able to wash all parts seated, assist to dry L arm pit.) Upper Body Dressing (QC): 2 (Max A with commercial floor covering installer shirt due to pt's reports of muscle spasms. Total assist donning/doffing back brace.) Lower Body Dressing (QC): 2 (Pt required assist threading LLE and pant hike, pt able to thread RLE using AE.) On/Off Footwear (QC): 3 (Pt doffed socks using dressing stick, donned socks using figure 4 method. OT educated pt on 1 handed technique) Toileting Hygiene (QC): 3 (Pt able to manage pants down, assist with pant hike. ) Toilet Transfer (QC): 3 (CGA stand to sit, min A sit to stand from [facility] [place] Assessment/Plan Assessment and Plan Assess & Plan/Chief Complaint Status post fall with T12 burst fracture s/p laminectomy and fusion 08/24/2020 X- ray of the pelvis negative for acute osseous abnormality. Right wrist fracture Hypovitaminosis D: Continue ergocalciferol. Acute kidney injury: Resolved. Hypochloremic hyponatremia: Improved significantly. Hypophosphatemia: s/p Sodium phosphate 15 mmol x 1. Leukocytosis: Essential hypertension but hypotensive here at IRF so decreased Coreg and started Florinef and JOSE/DANIA to legs Mixed hyperlipidemia: Acquired hypothyroidism: Continue Synthroid. Diabetes mellitus type 2: Continued Lantus and lispro but holding long acting due to hypoglycemia GERD: Protonix. Mood disorder: Continue Elavil and Lexapro. ANALISA: Nocturnal CPAP. Yeast vaginitis Orthostasis placed on IVF and Florinef UTI yeast placed on diflucan 08/30/20 Pollock cath required due to urinary retention consulting Dr Keen Plan: IRF protocol Pain control IVF 08/28/20: BM regimen Yeast treamtent Pain control Hold insulin 08/29/20: Florinef JOSE/DANIA wraps IVF Cefepime for UTI 08/30/20 Added Diflucan HLIVF 08/31/20: Monitor closely DC pollock soon 09/01/20: DC pollock Diflucan Monitor closely 09/02/20: DC Cefepime Diflucan Bladder meds 09/03/20: Bladder management Diflucan Insulin 09/04/20: Monitor labs Diflucan PO Monistat cream 09/05/20: Monitor closely Pain control Needs right wrist surgery (1) Burst fracture of thoracic vertebra Status: Acute ASHLYN WINTERS DO Sep 05, 2020 12:52
[2020-09-05] MEDS: CYCLOBENZAPRINE 10 MG (FLEXERIL) TAB PO PRN ×2 (13:27→18:12)
[2020-09-05] MEDS: TAMSULOSIN 0.4 MG (FLOMAX) CAP PO SCH (18:12)
[2020-09-05 20:02] VITALS: BP 131/72
[2020-09-05] MEDS: AMITRIPTYLINE 50 MG (ELAVIL) TAB PO SCH (21:27)
[2020-09-05] MEDS: GABAPENTIN 600 MG (NEURONTIN) TAB PO PRN (21:27)
[2020-09-05] MEDS: MELATONIN 3 MG TABLET PO PRN (21:28)
[2020-09-05] MEDS: ALPRAZolam 0.25 MG (XANAX) TAB PO PRN (22:23)
[2020-09-06] MEDS: CYCLOBENZAPRINE 10 MG (FLEXERIL) TAB PO PRN ×2 (03:49→13:23)
[2020-09-06] MEDS: LEVOTHYROXINE 100 MCG (LEVOTHROID) TAB PO SCH (06:09)
[2020-09-06] MEDS: BETHANECHOL 25 MG (URECHOLINE) TAB PO SCH ×4 (06:09→21:37)
[2020-09-06] MEDS: SUCRALFATE 1 GM (CARAFATE) TAB PO SCH ×4 (06:09→21:38)
[2020-09-06] MEDS: LEVOTHYROXINE 75 MCG (LEVOTHROID) TABLET PO SCH (06:09)
[2020-09-06] MEDS: inSUlin ASPART (NovoLOG) 1 UNIT/0.01 ML (CHARGE PER UNIT) SC SCH ×4 (06:10→21:00)
[2020-09-06 07:30] VITALS: BP 124/65
[2020-09-06] MEDS: ONDANSETRON 4 MG (ZOFRAN) ORAL DISSOLVE TAB PO PRN (08:42)
[2020-09-06] MEDS: KCL 10 MEQ TAB (MICRO K) PO SCH ×3 (08:49→18:20)
[2020-09-06] MEDS: IRON SUCROSE 200 MG/10 ML (VENOFER) VIAL IV SCH (08:49)
[2020-09-06] MEDS: CARVEDILOL 12.5 MG (COREG) TABLET PO SCH ×2 (08:49→21:38)
[2020-09-06] MEDS: amLODIPine 5 MG (NORVASC) TAB PO SCH (08:49)
[2020-09-06] MEDS: fluCOnazole (DIFLUCAN) 100 MG TAB PO SCH (08:49)
[2020-09-06] MEDS: PANTOPRAZOLE 40 MG (PROTONIX) TAB PO SCH (08:49)
[2020-09-06] MEDS: NICOTINE 21 MG (NICODERM) PATCH TD SCH (08:49)
[2020-09-06] MEDS: lisINopril 10 MG (PRINIVIL) TABLET PO SCH (08:50)
[2020-09-06] MEDS: NICOTINE PATCH REMOVAL TP SCH (08:50)
[2020-09-06] MEDS: ASPIRIN E.C. 325 MG (ECOTRIN) TABLET PO SCH (08:50)
[2020-09-06] MEDS: MICONAZOLE NITRATE 2% CRM 30 GM TP SCH ×4 (09:00→21:35)
[2020-09-06] MEDS: SENNA W/DOCUSATE (SENOKOT S) TABLET PO SCH ×2 (09:00→21:35)
[2020-09-06] MEDS: DOCUSATE SODIUM 100 MG (COLACE) CAP PO SCH ×2 (09:00→21:40)
[2020-09-06] MEDS: polyethylene glycoL POWDER 17 GM (MIRALAX) PACK PO SCH ×2 (09:00→21:35)
--- NOTE | 2020-09-06 11:55 | PM&R Progress Note ---
Subjective HPI/CC On Admission Date Seen by Provider: Sep 06, 2020 Time Seen by Provider: 12:00 Subjective/Events-last exam 09/06/20: Much improved Has surgery on right wrist No pain reported today Functioning well Social issues at home 09/05/20: Patient doing well Right wrist brace is a soft brace and not as supportive so accommodating that Monitor closely Pain controlled No vomiting Sugars and BP ok 09/04/20: Wrist fracture eval from outpatient Venofer given JOSE's on Potassium 3.5 Hgb 9.7 Elevated wbc is chronic 09/03/20: No BM yet last one was 08/31 Bladder scanning and doing pretty well Dr. Keen managing Had a straight cath last night Diflucan changed to oral today 09/02/20: Pt doing pretty well Walking around much better Voiding 500 CCs had 125 on bladder scan but the straight cath later this morning obtained 700 CCs Urecholine started BP 170/80 so restarted Lisinopril and Amlodipine Decreasing Levemir because her sugar was 83 09/01/20: Pt doing a lot better today DC Pollock catheter Improved on transfers WBC 18.5, procalcitonin and lactic acid is normal Hgb 8.6 IV Venofer is maintained 08/31/20: Pt doing pretty well Was able to walk today Discontinue catheter soon Yeast UTI requiring Diflucan IV Left humerus and shoulder X-ray obtained Had a small BM after multiple attempts Antibiotics still on board Potassium 3.2 so changed the potassium to TID with meals Carafate initiated at her request, she has terrible reflux 08/30/20: BP is much improved Patient feels good Pollock cath to remain until she is able to get out of bed Moving around in bed a lot today Supp did not work so giving fleets and if no results will give SSE HLIVF today Talked about left arm pain no trauma but will get xray tomorrow 08/29/20: Patient doing better today Was able to get on side of bed today on her own Pain more controlled UTI dx on UA so Cefepime started due to high risk for Pseudomonas as bacterial source Hypotension noted and she was asymptomatic like she was yesterday giving rise to assumption she has orthostasis and autonomic dysfunction due to DM Florinef ordered and JOSE and DANIA wraps on her legs Decreasing Coreg to 12.5 PO BID 08/28/20: Much improved status Multiple issues are addressed No BM for 3 weeks and started to move a bit with supp Vaginal yeast infection Pollock catheter maintained Dr Keen consulted Pain is an issue Hypoglycemia noted Review of Systems General: Fatigue, Malaise Neurological: Weakness Objective Exam Vital Signs Vital Signs Date Time Temp Pulse Resp B/P (MAP) Pulse Ox O2 Delivery O2 Flow Rate FiO2 09/06/20 19:27 36.2 77 16 110/67 (81) 94 Room Air Capillary Refill : General Appearance: No Apparent Distress, WD/WN, Anxious, Chronically ill, Thin HEENT: PERRL/EOMI, Normal ENT Inspection, Pharynx Normal Neck: Full Range of Motion, Normal Inspection, Non Tender, Supple, Carotid Bruit Respiratory: Chest Non Tender, Lungs Clear, Normal Breath Sounds, No Accessory Muscle Use, No Respiratory Distress Cardiovascular: Regular Rate, Rhythm, No Edema, No Gallop, No JVD, No Murmur, Normal Peripheral Pulses Gastrointestinal: Normal Bowel Sounds, No Organomegaly, No Pulsatile Mass, Non Tender, Soft Back: Decreased Range of Motion, Muscle Spasm, Vertebral Tenderness Extremity: Normal Capillary Refill, Normal Inspection, Normal Range of Motion, Non Tender, No Calf Tenderness, No Pedal Edema Neurologic/Psychiatric: Alert, Oriented x3, No Motor/Sensory Deficits, Normal 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 FIM Transfers Therapy Code Descriptions/Definitions Functional [place] Measure: 0=Not Assessed/NA 4=Minimal Assistance 1=Total Assistance 5=Supervision or Setup 2=Maximal Assistance 6=Modified [place] 3=Moderate Assistance 7=Complete IndependenceSCALE: Activities may be completed with or without assistive devices. 0-Tvbzxpfdod-ojqtfdu completes the activity by him/herself with no assistance from a helper. 5-Set-up or Clean-up Assistance-helper sets up or cleans up; patient completes activity. [place] assists only prior to or following the activity. 4-Supervision or Touching Assistance-helper provides verbal cues and/or touching/steadying and/or contact guard assistance as patient completes activity. Assistance may be provided throughout the activity or intermittently. 3-Partial/Moderate Assistance-helper does LESS THAN HALF the effort. [place] lifts, holds or supports trunk or limbs, but provides less than half the effort. 2-Substantial/Maximal Assistance-helper does MORE THAN HALF the effort. [place] lifts or holds trunk or limbs and provides more than half the effort. 5-Rlmgcmlaq-pmaspz does ALL the effort. Patient does none of the effort to complete the activity. Or, the assistance of 2 or more helpers is required for the patient to complete the activity. If activity was not attempted, code reason: 7-Patient Refused. 9-Not Applicable-not attempted and the patient did not perform the activity before the current illness, exacerbation or injury. 10-Not Attempted due to Environmental Limitations-(lack of equipment, weather restraints, etc.). 88-Not Attempted due to Medical Conditions or Safety Concerns. Roll Left to Right (QC): 5 Sit to Lying (QC): 5 Sit to Stand (QC): 6 Chair/Qpr-yl-Nyedj Xfer(QC): 4 Car Transfer (QC): 88 Gait Training Does the Patient Walk?: Yes Distance: 600ft Walk 10 feet (QC): 6 Walk 50 ft with 2 Turns(QC): 6 Walk 150 ft (QC): 6 Walking 10ft/uneven surface-QC: 88 Gait Persons Needed: 1 Gait Assistive Device: Walker Platform Wheelchair Training Does the Pt Use a Wheelchair?: No Wheel 50 ft with 2 turns (QC): 88 Wheel 150 ft (QC): 88 Stair Training 1 Step (curb) (QC): 88 4 Steps (QC): 88 12 Steps (QC): 88 Balance Picking up an Object (QC): 88 ADL-Treatment Eating (QC): 5 (set up assist) Oral Hygiene (QC): 4 (SBA standing at sink.) Bathing Location: L Arm, R Arm, Chest, Abdomen, Perineal Area Shower/Bathe Self (QC): 3 (Pt able to wash all parts seated, assist to dry L arm pit.) Upper Body Dressing (QC): 2 (Max A with socket puller shirt due to pt's reports of muscle spasms. Total assist donning/doffing back brace.) Lower Body Dressing (QC): 2 (Pt required assist threading LLE and pant hike, pt able to thread RLE using AE.) On/Off Footwear (QC): 3 (Pt doffed socks using dressing stick, donned socks using figure 4 method. OT educated pt on 1 handed technique) Toileting Hygiene (QC): 3 (Pt able to manage pants down, assist with pant hike. ) Toilet Transfer (QC): 3 (CGA stand to sit, min A sit to stand from [facility] over toilet.) Assessment/Plan Assessment and Plan Assess & Plan/Chief Complaint Status post fall with T12 burst fracture s/p laminectomy and fusion 08/24/2020 X- ray of the pelvis negative for acute osseous abnormality. Right wrist fracture Hypovitaminosis D: Continue ergocalciferol. Acute kidney injury: Resolved. Hypochloremic hyponatremia: Improved significantly. Hypophosphatemia: s/p Sodium phosphate 15 mmol x 1. Leukocytosis: Essential hypertension but hypotensive here at [facility] so decreased Coreg and started Florinef and JOSE/DANIA to legs Mixed hyperlipidemia: Acquired hypothyroidism: Continue Synthroid. Diabetes mellitus type 2: Continued Lantus and lispro but holding long acting due to hypoglycemia GERD: Protonix. Mood disorder: Continue Elavil and Lexapro. ANALISA: Nocturnal CPAP. Yeast vaginitis Orthostasis placed on IVF and Florinef UTI yeast placed on diflucan 08/30/20 Pollock cath required due to urinary retention consulting Dr Keen Plan: IRF protocol Pain control IVF 08/28/20: BM regimen Yeast treamtent Pain control Hold insulin 08/29/20: Florinef JOSE/DANIA wraps IVF Cefepime for UTI 08/30/20 Added Diflucan HLIVF 08/31/20: Monitor closely DC pollock soon 09/01/20: DC pollock Diflucan Monitor closely 09/02/20: DC Cefepime Diflucan Bladder meds 09/03/20: Bladder management Diflucan Insulin 09/04/20: Monitor labs Diflucan PO Monistat cream 09/05/20: Monitor closely Pain control Needs right wrist surgery 09/06/20: DC Mon? right wrist surgery (1) Burst fracture of thoracic vertebra Status: Acute ASHLYN WINTERS DO Sep 06, 2020 11:55
[2020-09-06] MEDS: SCOPOLAMINE 1.5 MG (TRANSDERM-SCOP) PATCH TD SCH (13:02)
[2020-09-06] MEDS: [UNRECOGNIZED DRUG - REMARK] TP SCH (13:02)
[2020-09-06] MEDS: TAMSULOSIN 0.4 MG (FLOMAX) CAP PO SCH (18:20)
[2020-09-06 19:27] VITALS: BP 110/67
[2020-09-06] MEDS: ALPRAZolam 0.25 MG (XANAX) TAB PO PRN (21:36)
[2020-09-06] MEDS: MELATONIN 3 MG TABLET PO PRN (21:37)
[2020-09-06] MEDS: AMITRIPTYLINE 50 MG (ELAVIL) TAB PO SCH (21:37)
[2020-09-06] MEDS: GABAPENTIN 600 MG (NEURONTIN) TAB PO PRN (21:38)
[2020-09-07] MEDS: LEVOTHYROXINE 75 MCG (LEVOTHROID) TABLET PO SCH (05:50)
[2020-09-07] MEDS: BETHANECHOL 25 MG (URECHOLINE) TAB PO SCH ×4 (05:50→21:21)
[2020-09-07] MEDS: SUCRALFATE 1 GM (CARAFATE) TAB PO SCH ×4 (05:50→21:21)
[2020-09-07] MEDS: LEVOTHYROXINE 100 MCG (LEVOTHROID) TAB PO SCH (05:50)
[2020-09-07 06:24] LABS: BASOPHILS # (AUTO) 0.1 10^3/uL (0.0-0.1); BASOPHILS % (AUTO) 1 % (0-10); EOSINOPHILS # (AUTO) 0.2 10^3/uL (0.0-0.3); EOSINOPHILS % (AUTO) 2 % (0-10); HEMATOCRIT 31 % (35-52); HEMOGLOBIN 9.6 g/dL (11.5-16.0); LYMPHOCYTES # (AUTO) 3.6 10^3/uL (1.0-4.0); LYMPHOCYTES % (AUTO) 28 % (12-44); MEAN CORPUSCULAR HEMOGLOBIN 32 pg (25-34); MEAN CORPUSCULAR HGB CONC 31 g/dL (32-36); MEAN CORPUSCULAR VOLUME 102 fL (80-99); MEAN PLATELET VOLUME 9.6 fL (9.0-12.2); MONOCYTES % (AUTO) 8 % (0-12); NEUTROPHILS % (AUTO) 62 % (42-75); PLATELET COUNT 450 10^3/uL (130-400)
[2020-09-07] MEDS: inSUlin ASPART (NovoLOG) 1 UNIT/0.01 ML (CHARGE PER UNIT) SC SCH ×4 (06:27→21:20)
[2020-09-07 06:50] LABS: ALBUMIN 3.2 GM/DL (3.2-4.5)
[2020-09-07 06:51] LABS: CHLORIDE 96 MMOL/L (98-107); POTASSIUM 4.6 MMOL/L (3.6-5.0); SODIUM 135 MMOL/L (135-145)
[2020-09-07 06:52] LABS: CALCIUM 9.1 MG/DL (8.5-10.1)
[2020-09-07 06:53] LABS: GLUCOSE 218 MG/DL (70-105)
[2020-09-07 06:54] LABS: CARBON DIOXIDE 29 MMOL/L (21-32)
[2020-09-07 06:55] LABS: BILIRUBIN,TOTAL 0.5 MG/DL (0.1-1.0)
[2020-09-07 06:56] LABS: ALKALINE PHOSPHATASE 251 U/L (40-136)
[2020-09-07 06:57] LABS: CREATININE SERUM 0.71 MG/DL (0.60-1.30); GFR ESTIMATED > 60
[2020-09-07 06:58] LABS: BUN/CREATININE RATIO 11
[2020-09-07 07:00] LABS: ALANINE AMINOTRANSFERASE 24 U/L (0-55)
[2020-09-07 08:00] VITALS: BP 120/71
--- NOTE | 2020-09-07 08:38 | PM&R Progress Note ---
Subjective HPI/CC On Admission Date Seen by Provider: Sep 07, 2020 Time Seen by Provider: 08:45 Subjective/Events-last exam 09/07/20: Pt doing much better Walking around well Will DC on Monday in preparation to have her right wrist surgery on WC 13, Hgb 9.6 09/06/20: Much improved Has surgery on right wrist No pain reported today Functioning well Social issues at home 09/05/20: Patient doing well Right wrist brace is a soft brace and not as supportive so accommodating that Monitor closely Pain controlled No vomiting Sugars and BP ok 09/04/20: Wrist fracture eval from outpatient Venofer given JOSE's on Potassium 3.5 Hgb 9.7 Elevated wbc is chronic 09/03/20: No BM yet last one was 08/31 Bladder scanning and doing pretty well Dr. Keen managing Had a straight cath last night Diflucan changed to oral today 09/02/20: Pt doing pretty well Walking around much better Voiding 500 CCs had 125 on bladder scan but the straight cath later this morning obtained 700 CCs Urecholine started BP 170/80 so restarted Lisinopril and Amlodipine Decreasing Levemir because her sugar was 83 09/01/20: Pt doing a lot better today DC Pollock catheter Improved on transfers WBC 18.5, procalcitonin and lactic acid is normal Hgb 8.6 IV Venofer is maintained 08/31/20: Pt doing pretty well Was able to walk today Discontinue catheter soon Yeast UTI requiring Diflucan IV Left humerus and shoulder X-ray obtained Had a small BM after multiple attempts Antibiotics still on board Potassium 3.2 so changed the potassium to TID with meals Carafate initiated at her request, she has terrible reflux 08/30/20: BP is much improved Patient feels good Pollock cath to remain until she is able to get out of bed Moving around in bed a lot today Supp did not work so giving fleets and if no results will give SSE HLIVF today Talked about left arm pain no trauma but will get xray tomorrow 08/29/20: Patient doing better today Was able to get on side of bed today on her own Pain more controlled UTI dx on UA so Cefepime started due to high risk for Pseudomonas as bacterial source Hypotension noted and she was asymptomatic like she was yesterday giving rise to assumption she has orthostasis and autonomic dysfunction due to DM Florinef ordered and JOSE and DANIA wraps on her legs Decreasing Coreg to 12.5 PO BID 08/28/20: Much improved status Multiple issues are addressed No BM for 3 weeks and started to move a bit with supp Vaginal yeast infection Pollock catheter maintained Dr Keen consulted Pain is an issue Hypoglycemia noted Review of Systems General: Fatigue Musculoskeletal: arm pain, back pain Objective Exam Vital Signs Vital Signs Date Time Temp Pulse Resp B/P (MAP) Pulse Ox O2 Delivery O2 Flow Rate FiO2 09/07/20 20:30 96 Room Air 09/07/20 20:00 37.5 86 20 144/96 (112) Capillary Refill : General Appearance: No Apparent Distress, WD/WN, Anxious, Chronically ill, Thin HEENT: PERRL/EOMI, Normal ENT Inspection, Pharynx Normal Neck: Full Range of Motion, Normal Inspection, Non Tender, Supple, Carotid Bruit Respiratory: Chest Non Tender, Lungs Clear, Normal Breath Sounds, No Accessory Muscle Use, No Respiratory Distress Cardiovascular: Regular Rate, Rhythm, No Edema, No Gallop, No JVD, No Murmur, Normal Peripheral Pulses Gastrointestinal: Normal Bowel Sounds, No Organomegaly, No Pulsatile Mass, Non Tender, Soft Back: Decreased Range of Motion, Muscle Spasm, Vertebral Tenderness Extremity: Normal Capillary Refill, Normal Inspection, Normal Range of Motion, Non Tender, No Calf Tenderness, No Pedal Edema Neurologic/Psychiatric: Alert, Oriented x3, No Motor/Sensory Deficits, Normal 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 FIM Transfers Therapy Code Descriptions/Definitions Functional [place] Measure: 0=Not Assessed/NA 4=Minimal Assistance 1=Total Assistance 5=Supervision or Setup 2=Maximal Assistance 6=Modified [place] 3=Moderate Assistance 7=Complete IndependenceSCALE: Activities may be completed with or without assistive devices. 1-Tsxgwutlsi-wfprijz completes the activity by him/herself with no assistance from a helper. 5-Set-up or Clean-up Assistance-helper sets up or cleans up; patient completes activity. [place] assists only prior to or following the activity. 4-Supervision or Touching Assistance-helper provides verbal cues and/or touc franky/steadying and/or contact guard assistance as patient completes activity. Assistance may be provided throughout the activity or intermittently. 3-Partial/Moderate Assistance-helper does LESS THAN HALF the effort. [place] lifts, holds or supports trunk or limbs, but provides less than half the effort. 2-Substantial/Maximal Assistance-helper does MORE THAN HALF the effort. [place] lifts or holds trunk or limbs and provides more than half the effort. 0-Zgxoyiqwt-qeebkj does ALL the effort. Patient does none of the effort to complete the activity. Or, the assistance of 2 or more helpers is required for the patient to complete the activity. If activity was not attempted, code reason: 7-Patient Refused. 9-Not Applicable-not attempted and the patient did not perform the activity be fore the current illness, exacerbation or injury. 10-Not Attempted due to Environmental Limitations-(lack of equipment, weather restraints, etc.). 88-Not Attempted due to Medical Conditions or Safety Concerns. Roll Left to Right (QC): 5 Sit to Lying (QC): 5 Sit to Stand (QC): 6 Chair/Wgo-fm-Lfmwk Xfer(QC): 4 Car Transfer (QC): 88 Gait Training Does the Patient Walk?: Yes Distance: 600ft Walk 10 feet (QC): 6 Walk 50 ft with 2 Turns(QC): 6 Walk 150 ft (QC): 6 Walking 10ft/uneven surface-QC: 88 Gait Persons Needed: 1 Gait Assistive Device: Walker Platform Wheelchair Training Does the Pt Use a Wheelchair?: No Wheel 50 ft with 2 turns (QC): 88 Wheel 150 ft (QC): 88 Stair Training 1 Step (curb) (QC): 88 4 Steps (QC): 88 12 Steps (QC): 88 Balance Picking up an Object (QC): 88 ADL-Treatment Eating (QC): 5 (set up assist) Oral Hygiene (QC): 4 (SBA standing at sink.) Bathing Location: L Arm, R Arm, Chest, Abdomen, Perineal Area Shower/Bathe Self (QC): 3 (Pt able to wash all parts seated, assist to dry L arm pit.) Upper Body Dressing (QC): 2 (Max A with assembler for puller over hand shirt due to pt's reports of muscle spasms. Total assist donning/doffing back brace.) Lower Body Dressing (QC): 2 (Pt required assist threading LLE and pant hike, pt able to thread RLE using AE.) On/Off Footwear (QC): 3 (Pt doffed socks using dressing stick, donned socks using figure 4 method. OT educated pt on 1 handed technique) Toileting Hygiene (QC): 3 (Pt able to manage pants down, assist with pant hike. ) Toilet Transfer (QC): 3 (CGA stand to sit, min A sit to stand from [facility] [place] toilet.) Assessment/Plan Assessment and Plan Assess & Plan/Chief Complaint Status post fall with T12 burst fracture s/p laminectomy and fusion 08/24/2020 X- ray of the pelvis negative for acute osseous abnormality. Right wrist fracture Hypovitaminosis D: Continue ergocalciferol. Acute kidney injury: Resolved. Hypochloremic hyponatremia: Improved significantly. Hypophosphatemia: s/p Sodium phosphate 15 mmol x 1. Leukocytosis: Essential hypertension but hypotensive here at IRF so decreased Coreg and started Florinef and JOSE/DANIA to legs Mixed hyperlipidemia: Acquired hypothyroidism: Continue Synthroid. Diabetes mellitus type 2: Continued Lantus and lispro but holding long acting due to hypoglycemia GERD: Protonix. Mood disorder: Continue Elavil and Lexapro. ANALISA: Nocturnal CPAP. Yeast vaginitis Orthostasis placed on IVF and Florinef UTI yeast placed on diflucan 08/30/20 Pollock cath required due to urinary retention consulting Dr Keen Plan: IRF protocol Pain control IVF 08/28/20: BM regimen Yeast treamtent Pain control Hold insulin 08/29/20: Florinef JOSE/DANIA wraps IVF Cefepime for UTI 08/30/20 Added Diflucan HLIVF 08/31/20: Monitor closely DC pollock soon 09/01/20: DC pollock Diflucan Monitor closely 09/02/20: DC Cefepime Diflucan Bladder meds 09/03/20: Bladder management Diflucan Insulin 09/04/20: Monitor labs Diflucan PO Monistat cream 09/05/20: Monitor closely Pain control Needs right wrist surgery 09/06/20: DC Mon? right wrist surgery 09/07/20: DC Wed Monitor pain (1) Burst fracture of thoracic vertebra Status: Acute ASHLYN WINTERS DO Sep 07, 2020 08:38
--- NOTE | 2020-09-07 09:00 | Physical Therapy Daily Note ---
PT Daily Note-Current Subjective Pt. in bed, asleep with breakfast tray at side. When awakened pt. was slow to agree to Rx. Expresses that she feels she is doing all she can. REquests assist for things before trying Pain Numeric Pain Scale: 7 (wrist and back) Location: Medial (back, right wridt) Location Body Site: Back Pain Description: Stabbing Mental Status Patient Orientation: Normal For Age Attachments: Other-See Comments (back brace) Transfers SCALE: Activities may be completed with or without assistive devices. 4-Nsbuojiswl-pamllsw completes the activity by him/herself with no assistance from a helper. 5-Set-up or Clean-up Assistance-helper sets up or cleans up; patient completes activity. [place] assists only prior to or following the activity. 4-Supervision or Touching Assistance-helper provides verbal cues and/or touching/steadying and/or contact guard assistance as patient completes activity. Assistance may be provided throughout the activity or intermittently. 3-Partial/Moderate Assistance-helper does LESS THAN HALF the effort. [place] lifts, holds or supports trunk or limbs, but provides less than half the effort. 2-Substantial/Maximal Assistance-helper does MORE THAN HALF the effort. [place] lifts or holds trunk or limbs and provides more than half the effort. 5-Endzrmegr-xrgbsj does ALL the effort. Patient does none of the effort to complete the activity. Or, the assistance of 2 or more helpers is required for the patient to complete the activity. If activity was not attempted, code reason: 7-Patient Refused. 9-Not Applicable-not attempted and the patient did not perform the activity before the current illness, exacerbation or injury. 10-Not Attempted due to Environmental Limitations-(lack of equipment, weather restraints, etc.). 88-Not Attempted due to Medical Conditions or Safety Concerns. Roll Left & Right (QC): 5 Sit to Lying (QC): 5 Lying to Sitting/Side of Bed(Q: 4 Sit to Stand (QC): 4 Chair/Qkr-th-Nnbsw Xfer(QC): 4 Toilet Transfer (QC): 4 much instruction for sit to stand and stand to sit with seated surface raised quite a bit for increased indep etc. pt. needs max assist clean up after toileting and assist with clothing. sup to log roll to side to sit was also emphasized and instruction given Weight Bearing Right Lower Extremity: Right Weight Bearing/Tolerated Left Lower Extremity: Left Weight Bearing/Tolerated NO WEIGHT BEARING RIGHT UPPER EXTREMITY Gait Training Does the Patient Walk?: Yes Walk 10 feet (QC): 5 Walk 50 ft with 2 Turns(QC): 5 Walk 150 ft (QC): 5 Gait Persons Needed: 1 Gait Assistive Device: Walker Platform pt. doing well progressing with gait utilizing platform. 500 ft x2 SBA Treatments much of Rx spent on instruction using mirror to fiona and doff brace requiring mod to max assist. also TRFs sit to stand and strengthening gluts etc for stance. Pt. also states she is not suppose to use her fingers on right hand however OT reports this is not a restriction Assessment Current Status: Good Progress pt. needs review of her goals to be more indep as pt requests assist or does not attempt and expresses that she" cant" PT Short Term Goals Short Term Goals Time Frame: Sep 04, 2020 Roll Left & Right: 3 Sit to lyin Lying to sitting on side of be: 3 Sit to stand: 3 Chair/opy-lq-orvxs transfer: 3 Toilet transfer: 3 Car transfer: 3 Walk 10 feet: 3 Walk 50 feet with two turns: 3 Walk 150 feet: 3 Walking 10ft on uneven surface: 3 1 step (curb): 3 4 steps: 3 Picking up objects: 88 PT Securities Broker Goals Skilled Nursing Goals PT Skilled Nursing Goals Time Frame: Sep 18, 2020 Roll Left & Right (QC): 4 Sit to Lying (QC): 4 Lying-Sitting on Side/Bed(QC): 4 Sit to Stand (QC): 4 Chair/Ohe-wh-Imbzg Xfer(QC): 4 Toilet Transfer (QC): 4 Car Transfer (QC): 4 Does the Patient Walk: No and Walking Goal IS indicated Walk 10 feet (QC): 4 Walk 50ft with 2 Turns (QC): 4 Walk 150 ft (QC): 4 Walking 10ft on Uneven Surface: 4 1 Step (curb) (QC): 4 4 Steps (QC): 4 12 Steps (QC): 88 Picking up an Object (QC): 88 Wheel 50 feet with 2 turns (QC: 6 Wheel 150 feet: 6 PT Plan Treatment/Plan Treatment Plan: Continue Plan of Care Treatment Plan: Bed Mobility, Education, Functional Activity [place], Functional Strength, Group Therapy, Gait, Safety, Therapeutic Exercise, Transfers Treatment Duration: Sep 18, 2020 Frequency: At least 5 of 7 days/Wk (IRF) Estimated Hrs Per Day: 1.5 hours per day Patient and/or Family Agrees t: Yes Safety Risks/Education Patient Education: Gait Training, Transfer Techniques, Correct Positioning, Reviewed Don/Doff Brace, Disease Process, Safety Issues Teaching Recipient: Patient Teaching Methods: Demonstration, Discussion Response to Teaching: Verbalize Understanding, Return Demonstration, Reinforce ment Needed Time/GCodes Time In: 800 Time Out: 900 Total Billed Treatment Time: 60 Total Billed Treatment 1,FA40m,GT20m MAGALY BATISTA NEON ELECTRICIAN Sep 07, 2020 09:00
[2020-09-07] MEDS: amLODIPine 5 MG (NORVASC) TAB PO SCH (09:26)
[2020-09-07] MEDS: KCL 10 MEQ TAB (MICRO K) PO SCH ×3 (09:26→18:14)
[2020-09-07] MEDS: ASPIRIN E.C. 325 MG (ECOTRIN) TABLET PO SCH (09:26)
[2020-09-07] MEDS: fluCOnazole (DIFLUCAN) 100 MG TAB PO SCH (09:26)
[2020-09-07] MEDS: lisINopril 10 MG (PRINIVIL) TABLET PO SCH (09:26)
[2020-09-07] MEDS: PANTOPRAZOLE 40 MG (PROTONIX) TAB PO SCH (09:26)
[2020-09-07] MEDS: CARVEDILOL 12.5 MG (COREG) TABLET PO SCH ×2 (09:26→21:21)
[2020-09-07] MEDS: DOCUSATE SODIUM 100 MG (COLACE) CAP PO SCH ×2 (09:34→21:20)
[2020-09-07] MEDS: polyethylene glycoL POWDER 17 GM (MIRALAX) PACK PO SCH ×2 (09:35→21:20)
[2020-09-07] MEDS: SENNA W/DOCUSATE (SENOKOT S) TABLET PO SCH ×2 (09:35→21:20)
[2020-09-07] MEDS: CYCLOBENZAPRINE 10 MG (FLEXERIL) TAB PO PRN ×2 (09:39→17:11)
[2020-09-07] MEDS: NICOTINE PATCH REMOVAL TP SCH (09:54)
[2020-09-07] MEDS: NICOTINE 21 MG (NICODERM) PATCH TD SCH (09:54)
[2020-09-07] MEDS: MICONAZOLE NITRATE 2% CRM 30 GM TP SCH ×4 (09:55→21:20)
--- NOTE | 2020-09-07 11:02 | Occupational Ther Daily Note ---
OT Current Status-Daily Note Subjective Pt laying in bed, states difficulty keeping her eyes open as she is very tired. Agreeable to OT Tx with focus on showering. Mental Status/Objective Patient Orientation: Person, Place, Time, Situation ADL-Treatment Therapy Code Descriptions/Definitions Functional [place] Measure: 0=Not Assessed/NA 4=Minimal Assistance 1=Total Assistance 5=Supervision or Setup 2=Maximal Assistance 6=Modified Dick[place] 3=Moderate Assistance 7=Complete IndependenceSCALE: Activities may be completed with or without assistive devices. 2-Dawfiplkjg-csrbaqa completes the activity by him/herself with no assistance from a helper. 5-Set-up or Clean-up Assistance-helper sets up or cleans up; patient completes activity. [place] assists only prior to or following the activity. 4-Supervision or Touching Assistance-helper provides verbal cues and/or touching/steadying and/or contact guard assistance as patient completes activity. Assistance may be provided throughout the activity or intermittently. 3-Partial/Moderate Assistance-helper does LESS THAN HALF the effort. [place] lifts, holds or supports trunk or limbs, but provides less than half the effort. 2-Substantial/Maximal Assistance-helper does MORE THAN HALF the effort. [place] lifts or holds trunk or limbs and provides more than half the effort. 5-Rghxpmpgo-mhzehy does ALL the effort. Patient does none of the effort to complete the activity. Or, the assistance of 2 or more helpers is required for the patient to complete the activity. If activity was not attempted, code reason: 7-Patient Refused. 9-Not Applicable-not attempted and the patient did not perform the activity before the current illness, exacerbation or injury. 10-Not Attempted due to Environmental Limitations-(lack of equipment, weather restraints, etc.). 88-Not Attempted due to Medical Conditions or Safety Concerns. Eating (QC): 5 (set up, assistance opening sugar/creamer packets for coffee.) Oral Hygiene (QC): 4 (SBA) Shower/Bathe Self (QC): 4 (SBA, pt able to wash/dry all parts seated on SC. Min cues to maintain back precautions.) Upper Body Dressing (QC): 3 (Pt able to don brace mod A overall with skilled instructions, doffed brace SBA. Pt able to don/doff pullover shirt, SBA) Lower Body Dressing (QC): 3 (CGA in stand to doff pants, pt required min A with pant hike while donning.) On/Off Footwear: 4 (Pt doffed/donned gripper socks, SBA using figure 4 method to cross 1 leg over other knee) Toileting Hygiene (QC): 3 (Min A with pant hike, pt able to manage pants down and perform hygiene in stand.) Toilet Transfer (QC): 4 (CGA on/off BSC over toilet using GBs.) Other Treatment Pt laying in bed, transferred supine to sit EOB, CGA. Pt donned back brace with mod A and skilled instruction. Pt used R platform walker to ambulate into bathroom and onto NE, CGA. Pt doffed clothes, OT set up shower area for pt (covering back dressing and midline site). Pt completed shower, then donned clothes. Pt used platform walker to stand at sink for oral care, SBA. Pt ambulated to therapy gym, [facility] and onto mat. Pt completed reaching activity with cones across midline in all planes, while maintaining back precautions. Pt co mpleted task x2 with rest breaks between. She then used a plasma processing technician to slate picker objects from floor seated, then used a plasma processing technician to slate picker x5 objects in standing at platform walker, [facility]. Pt returned to room where she completed toileting, stood at sink to wash hands, then to recliner. Post tx, pt seated in recliner, call light in reach and all needs met. Education OT Patient Education: Correct positioning, Modified ADL techniques, Progress toward Goal/Update tx plan, Purpose of tx/functional activities Teaching Recipient: Patient Teaching Methods: Discussion Response to Teaching: Verbalize Understanding OT Short Term Goals Short Term Goals Time Frame: Sep 09, 2020 Toileting hygiene: 3 Shower/bathe self: 3 Upper body dressin Lower body dressin Putting on/taking off footwear: 3 OT Fpc Goals Design Engineer Agricultural Equipment Goals Time Frame: September 25, 2020 Eating (QC): 6 Oral Hygiene (QC): 6 Toileting Hygiene (QC): 4 Shower/Bathe Self (QC): 4 Upper Body Dressing (QC): 5 Lower Body Dressing (QC): 4 On/Off Footwear (QC): 4 Additional Goals: 1-Demonstrate ADL Tasks, 2-Verbalize Understanding, 3- ImproveStrength/Babatunde 1=Demonstrate adherence to instructed precautions during ADL tasks. 2=Patient will verbalize/demonstrate understanding of assistive devices/modifications for ADL. 3=Patient will improve strength/tolerance for activity to enable patient to perform ADL's. OT Education/Plan Problem List/Assessment Assessment: Decreased Activ Tolerance, Decreased UE Strength, Impaired Funct Balance, Impaired I ADL's, Impaired Self-Care Skills Discharge Recommendations Plan/Recommendations: Continue POC Treatment Plan/Plan of Care Patient would benefit from OT for education, treatment and training to promote independence in ADL's, mobility, safety and/or upper extremity function for ADL's. Plan of Care: ADL Retraining, Functional Mobility, Group Exercise/Act as Ind, UE Funct Exercise/Act Treatment Duration: September 25, 2020 Frequency: At least 5 of 7 days/Wk (IRF) Estimated Hrs Per Day: 1.5 hours per day Rehab Potential: Guarded Time/GCodes Start Time: 10:30 Stop Time: 12:00 Total Time Billed (hr/min): 90 Billed Treatment Time 1, ADL 4 (60'), FA 2 (30') YUNIEL GILBERT OT Sep 07, 2020 11:02
--- NOTE | 2020-09-07 13:30 | Physical Therapy Daily Note ---
PT Daily Note-Current Subjective Pt asleep in bed upon arrival but got up and agreed to Rx. Pt reports spasms are not as severe as they have been previously and feels like she is getting better. States sit-stand last week causes severe pain and now it produces little to no pain. Pt states she likes walking and when she is up walking that she doesn't have any spasms. Pain Location: No Pain Reported Mental Status Patient Orientation: Person, Place, Time, Situation, Normal For Age Attachments: Other-See Comments (mask while out of room) Transfers SCALE: Activities may be completed with or without assistive devices. 7-Wtqgejaiwn-xpxgnmt completes the activity by him/herself with no assistance from a helper. 5-Set-up or Clean-up Assistance-helper sets up or cleans up; patient completes activity. [place] assists only prior to or following the activity. 4-Supervision or Touching Assistance-helper provides verbal cues and/or touching/steadying and/or contact guard assistance as patient completes activity. Assistance may be provided throughout the activity or intermittently. 3-Partial/Moderate Assistance-helper does LESS THAN HALF the effort. [place] lifts, holds or supports trunk or limbs, but provides less than half the effort. 2-Substantial/Maximal Assistance-helper does MORE THAN HALF the effort. [place] lifts or holds trunk or limbs and provides more than half the effort. 3-Ilvucajii-ndqrwy does ALL the effort. Patient does none of the effort to complete the activity. Or, the assistance of 2 or more helpers is required for the patient to complete the activity. If activity was not attempted, code reason: 7-Patient Refused. 9-Not Applicable-not attempted and the patient did not perform the activity before the current illness, exacerbation or injury. 10-Not Attempted due to Environmental Limitations-(lack of equipment, weather restraints, etc.). 88-Not Attempted due to Medical Conditions or Safety Concerns. Lying to Sitting/Side of Bed(Q: 5 Sit to Stand (QC): 4 Toilet Transfer (QC): 5 Weight Bearing Right Lower Extremity: Right Weight Bearing/Tolerated Left Lower Extremity: Left Weight Bearing/Tolerated NO WEIGHT BEARING RIGHT UPPER EXTREMITY Gait Training Does the Patient Walk?: Yes Distance: 400 ft Walk 10 feet (QC): 5 Walk 50 ft with 2 Turns(QC): 5 Walk 150 ft (QC): 5 Gait Persons Needed: 1 Gait Assistive Device: Walker Platform Pt struggles w/ turns with platform walker, instruction was given as well as assist for safe turning with education regarding back safety with turns Exercises Seated Therapy Exercises: Sit to stand Seated Reps: 3 Standing: Retro gait (in // bars), Side steps (in// bars) Standing Reps: 4 Treatments Pt in bed upon arrival and gets up and applies TLSO w/ cues from SURETY BOND AGENT. Sit-stand TF and SURETY BOND AGENT tightens brace. Amb approx. 400' and then into therapy gym. Pt performs standing exs in // bars. Then amb back to room and TF to toilet and therapy departs. Assessment Current Status: Good Progress Pt now requires CGA sit-stand TFs and was Patrick previously and pt TFs better in afternoon compared to morning. Provided skilled verbal cues about pushing off bed for sit-stand TF and donning brace. While performing standing exs in // bars pt needed more rest breaks because of spasms in back. PT Short Term Goals Short Term Goals Time Frame: Sep 04, 2020 Roll Left & Right: 3 Sit to lyin Lying to sitting on side of be: 3 Sit to stand: 3 Chair/nvh-da-lvbhl transfer: 3 Toilet transfer: 3 Car transfer: 3 Walk 10 feet: 3 Walk 50 feet with two turns: 3 Walk 150 feet: 3 Walking 10ft on uneven surface: 3 1 step (curb): 3 4 steps: 3 Picking up objects: 88 PT Alf Goals Alf Goals PT Alf Goals Time Frame: Sep 18, 2020 Roll Left & Right (QC): 4 Sit to Lying (QC): 4 Lying-Sitting on Side/Bed(QC): 4 Sit to Stand (QC): 4 Chair/Ido-wx-Sbjji Xfer(QC): 4 Toilet Transfer (QC): 4 Car Transfer (QC): 4 Does the Patient Walk: No and Walking Goal IS indicated Walk 10 feet (QC): 4 Walk 50ft with 2 Turns (QC): 4 Walk 150 ft (QC): 4 Walking 10ft on Uneven Surface: 4 1 Step (curb) (QC): 4 4 Steps (QC): 4 12 Steps (QC): 88 Picking up an Object (QC): 88 Wheel 50 feet with 2 turns (QC: 6 Wheel 150 feet: 6 PT Plan Problem List Problem List: Activity Tolerance, Transfer Treatment/Plan Treatment Plan: Continue Plan of Care Treatment Plan: Bed Mobility, Education, Functional Activity Babatunde, Functional Strength, Group Therapy, Gait, Safety, Therapeutic Exercise, Transfers Treatment Duration: Sep 18, 2020 Frequency: At least 5 of 7 days/Wk (IRF) Estimated Hrs Per Day: 1.5 hours per day Patient and/or Family Agrees t: Yes Safety Risks/Education Patient Education: Gait Training, Transfer Techniques, Correct Positioning, Reviewed Don/Doff Brace, Safety Issues Teaching Recipient: Patient Teaching Methods: Demonstration, Discussion Response to Teaching: Verbalize Understanding, Return Demonstration Time/GCodes Time In: 1300 Time Out: 1330 Total Billed Treatment Time: 30 Total Billed Treatment 1, EX (20m), FA (10m) MAGALY BATISTA SURETY BOND AGENT Sep 07, 2020 13:30
[2020-09-07] MEDS: TAMSULOSIN 0.4 MG (FLOMAX) CAP PO SCH (18:14)
[2020-09-07 20:00] VITALS: BP 144/96
[2020-09-07] MEDS: AMITRIPTYLINE 50 MG (ELAVIL) TAB PO SCH (21:21)
[2020-09-07] MEDS: ALPRAZolam 0.25 MG (XANAX) TAB PO PRN (21:21)
[2020-09-07] MEDS: GABAPENTIN 600 MG (NEURONTIN) TAB PO PRN (21:21)
[2020-09-07] MEDS: MELATONIN 3 MG TABLET PO PRN (21:21)
[2020-09-08] MEDS: BETHANECHOL 25 MG (URECHOLINE) TAB PO SCH ×4 (06:00→21:09)
[2020-09-08] MEDS: LEVOTHYROXINE 75 MCG (LEVOTHROID) TABLET PO SCH (07:00)
[2020-09-08] MEDS: inSUlin ASPART (NovoLOG) 1 UNIT/0.01 ML (CHARGE PER UNIT) SC SCH ×4 (07:00→21:10)
[2020-09-08] MEDS: LEVOTHYROXINE 100 MCG (LEVOTHROID) TAB PO SCH (07:00)
[2020-09-08] MEDS: SUCRALFATE 1 GM (CARAFATE) TAB PO SCH ×4 (07:00→21:09)
[2020-09-08 08:00] VITALS: BP 120/66
--- NOTE | 2020-09-08 08:38 | Physical Therapy Daily Note ---
PT Daily Note-Current Subjective Pt sitting in recliner upon arrival. Pt agrees to PT for QC scoring for anticipated DC tomorrow. Pt asked about DC this afternoon after platform walker arrives. SW is notified. Pt c/o dizziness when getting up from mat but subsided within a minute. Pain Numeric Pain Scale: 7 Location: Left Location Body Site: Hip Pain Description: Ache Comment: pt comments that 10/10 when there's a spasm and 7/10 otherwise Mental Status Patient Orientation: Person, Place, Time, Situation Attachments: Other-See Comments (TLSO Brace) Transfers SCALE: Activities may be completed with or without assistive devices. 0-Udrasfqryg-whkjula completes the activity by him/herself with no assistance from a helper. 5-Set-up or Clean-up Assistance-helper sets up or cleans up; patient completes activity. [place] assists only prior to or following the activity. 4-Supervision or Touching Assistance-helper provides verbal cues and/or touching/steadying and/or contact guard assistance as patient completes activity. Assistance may be provided throughout the activity or intermittently. 3-Partial/Moderate Assistance-helper does LESS THAN HALF the effort. [place] lifts, holds or supports trunk or limbs, but provides less than half the effort. 2-Substantial/Maximal Assistance-helper does MORE THAN HALF the effort. [place] lifts or holds trunk or limbs and provides more than half the effort. 0-Scbifvyxd-cakvgy does ALL the effort. Patient does none of the effort to complete the activity. Or, the assistance of 2 or more helpers is required for the patient to complete the activity. If activity was not attempted, code reason: 7-Patient Refused. 9-Not Applicable-not attempted and the patient did not perform the activity before the current illness, exacerbation or injury. 10-Not Attempted due to Environmental Limitations-(lack of equipment, weather restraints, etc.). 88-Not Attempted due to Medical Conditions or Safety Concerns. Roll Left & Right (QC): 5 Sit to Lying (QC): 5 Lying to Sitting/Side of Bed(Q: 5 Sit to Stand (QC): 5 Chair/Llo-oh-Wxiti Xfer(QC): 5 Toilet Transfer (QC): 5 Car Transfer (QC): 5 Weight Bearing Right Lower Extremity: Right Weight Bearing/Tolerated Left Lower Extremity: Left Weight Bearing/Tolerated NO WEIGHT BEARING RIGHT UPPER EXTREMITY Gait Training Does the Patient Walk?: Yes Distance: 500' Walk 10 feet (QC): 5 Walk 50 ft with 2 Turns(QC): 5 Walk 150 ft (QC): 5 Walking 10ft/uneven surface-QC: 5 Gait Persons Needed: 1 Gait Assistive Device: Walker Platform Wheelchair Training Does the Pt Use a Wheelchair?: No Stair Training Stair Training: Handrails/: 1 handrail #of Steps: 4 1 Step (curb) (QC): 5 4 Steps (QC): 5 12 Steps (QC): 7 Balance Picking up an Object (QC): 5 Treatments Pt in recliner upon arrival and DRY CHAIN OPERATOR assisted pt in putting pants on. Then pt amb to simulated car and performed car TF. Amb to therapy gym and asc and desc stairs step to. Up w/ RLE first and down w/ LLE first. Pt amb across uneven surface and declined walking over curb. TF to mat and performed QC's in bed mobility. Pt used grabber to pick item off floor and then pt amb in valdes appox. 500'. Completed figure 8's around chairs and then back to room and TF to bed. Assessment Current Status: Good Progress Pt demonstrates and reports stiffness with movement today but this doesn't limit participation. Pt needed to loosen up to help w/ first TF from recliner but after this all TFs were good. Pt turns are much improved today previously pt was taking wider turns but DRY CHAIN OPERATOR improved this w/ skilled verbal cues. Pt is showing increased strength as she did not need surface elevated to help w/ TFs like previous days. Educated pt about continuing to elevate feet in order to reduce swelling. PT Short Term Goals Short Term Goals Time Frame: Sep 04, 2020 Roll Left & Right: 3 Sit to lyin Lying to sitting on side of be: 3 Sit to stand: 3 Chair/txo-pt-qimuy transfer: 3 Toilet transfer: 3 Car transfer: 3 Walk 10 feet: 3 Walk 50 feet with two turns: 3 Walk 150 feet: 3 Walking 10ft on uneven surface: 3 1 step (curb): 3 4 steps: 3 Picking up objects: 88 PT Show Jumping Instructor Goals Detention Goals PT Detention Goals Time Frame: Sep 18, 2020 Roll Left & Right (QC): 4 Sit to Lying (QC): 4 Lying-Sitting on Side/Bed(QC): 4 Sit to Stand (QC): 4 Chair/Mxv-ly-Cshci Xfer(QC): 4 Toilet Transfer (QC): 4 Car Transfer (QC): 4 Does the Patient Walk: No and Walking Goal IS indicated Walk 10 feet (QC): 4 Walk 50ft with 2 Turns (QC): 4 Walk 150 ft (QC): 4 Walking 10ft on Uneven Surface: 4 1 Step (curb) (QC): 4 4 Steps (QC): 4 12 Steps (QC): 88 Picking up an Object (QC): 88 Wheel 50 feet with 2 turns (QC: 6 Wheel 150 feet: 6 PT Plan Problem List Problem List: Activity Tolerance Treatment/Plan Treatment Plan: Continue Plan of Care Treatment Plan: Bed Mobility, Education, Functional Activity Babatunde, Functional Strength, Group Therapy, Gait, Safety, Therapeutic Exercise, Transfers Treatment Duration: Sep 18, 2020 Frequency: At least 5 of 7 days/Wk (IRF) Estimated Hrs Per Day: 1.5 hours per day Patient and/or Family Agrees t: Yes Safety Risks/Education Patient Education: Correct Positioning Teaching Recipient: Patient Teaching Methods: Demonstration, Discussion Response to Teaching: Verbalize Understanding, Return Demonstration Time/GCodes Time In: 800 Time Out: 900 Total Billed Treatment Time: 60 Total Billed Treatment 1, FA x 3 (50m), GT (10m) ELLEN LINARES DRY CHAIN OPERATOR Sep 08, 2020 08:38
[2020-09-08] MEDS: CYCLOBENZAPRINE 10 MG (FLEXERIL) TAB PO PRN ×2 (08:56→21:23)
--- NOTE | 2020-09-08 08:56 | PM&R Progress Note ---
Subjective HPI/CC On Admission Date Seen by Provider: Sep 08, 2020 Time Seen by Provider: 09:00 Subjective/Events-last exam 09/08/20: Pt set for DC tomorrow and 9:[address] Johnson Didnt sleep well last night, worried about everything Nicotine patch is really helping her Pain is well controlled 09/07/20: Pt doing much better Walking around well Will DC on Monday in preparation to have her right wrist surgery on WC 13, Hgb 9.6 09/06/20: Much improved Has surgery on right wrist No pain reported today Functioning well Social issues at home 09/05/20: Patient doing well Right wrist brace is a soft brace and not as supportive so accommodating that Monitor closely Pain controlled No vomiting Sugars and BP ok 09/04/20: Wrist fracture eval from outpatient Venofer given JOSE's on Potassium 3.5 Hgb 9.7 Elevated wbc is chronic 09/03/20: No BM yet last one was 08/31 Bladder scanning and doing pretty well Dr. Keen managing Had a straight cath last night Diflucan changed to oral today 09/02/20: Pt doing pretty well Walking around much better Voiding 500 CCs had 125 on bladder scan but the straight cath later this morning obtained 700 CCs Urecholine started BP 170/80 so restarted Lisinopril and Amlodipine Decreasing Levemir because her sugar was 83 09/01/20: Pt doing a lot better today DC Pollock catheter Improved on transfers WBC 18.5, procalcitonin and lactic acid is normal Hgb 8.6 IV Venofer is maintained 08/31/20: Pt doing pretty well Was able to walk today Discontinue catheter soon Yeast UTI requiring Diflucan IV Left humerus and shoulder X-ray obtained Had a small BM after multiple attempts Antibiotics still on board Potassium 3.2 so changed the potassium to TID with meals Carafate initiated at her request, she has terrible reflux 08/30/20: BP is much improved Patient feels good Pollock cath to remain until she is able to get out of bed Moving around in bed a lot today Supp did not work so giving fleets and if no results will give SSE HLIVF today Talked about left arm pain no trauma but will get xray tomorrow 08/29/20: Patient doing better today Was able to get on side of bed today on her own Pain more controlled UTI dx on UA so Cefepime started due to high risk for Pseudomonas as bacterial source Hypotension noted and she was asymptomatic like she was yesterday giving rise to assumption she has orthostasis and autonomic dysfunction due to DM Nadeenf ordered and JOSE and DANIA wraps on her legs Decreasing Coreg to 12.5 PO BID 08/28/20: Much improved status Multiple issues are addressed No BM for 3 weeks and started to move a bit with supp Vaginal yeast infection Pollock catheter maintained Dr Keen consulted Pain is an issue Hypoglycemia noted Review of Systems General: Fatigue, Malaise Musculoskeletal: arm pain, back pain Objective Exam Vital Signs Vital Signs Date Time Temp Pulse Resp B/P (MAP) Pulse Ox O2 Delivery O2 Flow Rate FiO2 09/08/20 22:03 Room Air 09/08/20 20:00 37.2 81 16 136/85 (102) 99 Capillary Refill : General Appearance: No Apparent Distress, WD/WN, Anxious, Chronically ill, Thin HEENT: PERRL/EOMI, Normal ENT Inspection, Pharynx Normal Neck: Full Range of Motion, Normal Inspection, Non Tender, Supple, Carotid Bruit Respiratory: Chest Non Tender, Lungs Clear, Normal Breath Sounds, No Accessory Muscle Use, No Respiratory Distress Cardiovascular: Regular Rate, Rhythm, No Edema, No Gallop, No JVD, No Murmur, Normal Peripheral Pulses Gastrointestinal: Normal Bowel Sounds, No Organomegaly, No Pulsatile Mass, Non Tender, Soft Back: Decreased Range of Motion, Muscle Spasm, Vertebral Tenderness Extremity: Normal Capillary Refill, Normal Inspection, Normal Range of Motion, Non Tender, No Calf Tenderness, No Pedal Edema Neurologic/Psychiatric: Alert, Oriented x3, No Motor/Sensory Deficits, Normal Mood/Affect, copy clerk II-XII Norm as Tested, Abnormal Gait, Motor Weakness (lower legs) Skin: Normal Color, Warm/Dry Lymphatic: No Adenopathy Results/Procedures Lab Patient resulted labs reviewed. FIM Transfers Therapy Code Descriptions/Definitions Functional [place] Measure: 0=Not Assessed/NA 4=Minimal Assistance 1=Total Assistance 5=Supervision or Setup 2=Maximal Assistance 6=Modified [place] 3=Moderate Assistance 7=Complete IndependenceSCALE: Activities may be completed with or without assistive devices. 8-Ufqoitiqfp-znypiam completes the activity by him/herself with no assistance from a helper. 5-Set-up or Clean-up Assistance-helper sets up or cleans up; patient completes activity. [place] assists only prior to or following the activity. 4-Supervision or Touching Assistance-helper provides verbal cues and/or touching/steadying and/or contact guard assistance as patient completes activity. Assistance may be provided throughout the activity or intermittently. 3-Partial/Moderate Assistance-helper does LESS THAN HALF the effort. [place] lifts, holds or supports trunk or limbs, but provides less than half the effort. 2-Substantial/Maximal Assistance-helper does MORE THAN HALF the effort. [place] lifts or holds trunk or limbs and provides more than half the effort. 8-Piqyyhdno-yroayw does ALL the effort. Patient does none of the effort to complete the activity. Or, the assistance of 2 or more helpers is required for the patient to complete the activity. If activity was not attempted, code reason: 7-Patient Refused. 9-Not Applicable-not attempted and the patient did not perform the activity before the current illness, exacerbation or injury. 10-Not Attempted due to Environmental Limitations-(lack of equipment, weather restraints, etc.). 88-Not Attempted due to Medical Conditions or Safety Concerns. Roll Left to Right (QC): 5 Sit to Lying (QC): 5 Sit to Stand (QC): 5 Chair/Yfg-fb-Qiedr Xfer(QC): 5 Car Transfer (QC): 5 Gait Training Does the Patient Walk?: Yes Distance: 400 ft Walk 10 feet (QC): 5 Walk 50 ft with 2 Turns(QC): 5 Walk 150 ft (QC): 5 Walking 10ft/uneven surface-QC: 5 Gait Persons Needed: 1 Gait Assistive Device: Walker Platform Wheelchair Training Does the Pt Use a Wheelchair?: No Wheel 50 ft with 2 turns (QC): 88 Wheel 150 ft (QC): 88 Stair Training Stair Training: Handrails/: 1 handrail #of Steps: 4 1 Step (curb) (QC): 5 4 Steps (QC): 5 12 Steps (QC): 7 Balance Picking up an Object (QC): 5 ADL-Treatment Eating (QC): 5 (set up, assistance opening sugar/creamer packets for coffee.) Oral Hygiene (QC): 4 (SBA) Bathing Location: L Arm, R Arm, Chest, Abdomen, Perineal Area Shower/Bathe Self (QC): 4 (SBA, pt able to wash/dry all parts seated on SC. Min cues to maintain back precautions.) Upper Body Dressing (QC): 3 (Pt able to don brace mod A overall with skilled instructions, doffed brace SBA. Pt able to don/doff pullover shirt, SBA) Lower Body Dressing (QC): 3 (CGA in stand to doff pants, pt required min A with pant hike while donning.) On/Off Footwear (QC): 4 (Pt doffed/donned gripper socks, SBA using figure 4 method to cross 1 leg over other knee) Toileting Hygiene (QC): 3 (Min A with pant hike, pt able to manage pants down and perform hygiene in stand.) Toilet Transfer (QC): 4 (CGA on/off BSC over toilet using GBs.) Assessment/Plan Assessment and Plan Assess & Plan/Chief Complaint Status post fall with T12 burst fracture s/p laminectomy and fusion 08/24/2020 X- ray of the pelvis negative for acute osseous abnormality. Right wrist fracture Hypovitaminosis D: Continue ergocalciferol. Acute kidney injury: Resolved. Hypochloremic hyponatremia: Improved significantly. Hypophosphatemia: s/p Sodium phosphate 15 mmol x 1. Leukocytosis: Essential hypertension but hypotensive here at [facility] so decreased Coreg and started Florinef and JOSE/DANIA to legs Mixed hyperlipidemia: Acquired hypothyroidism: Continue Synthroid. Diabetes mellitus type 2: Continued Lantus and lispro but holding long acting due to hypoglycemia GERD: Protonix. Mood disorder: Continue Elavil and Lexapro. ANALISA: Nocturnal CPAP. Yeast vaginitis Orthostasis placed on IVF and Florinef UTI yeast placed on diflucan 08/30/20 Pollock cath required due to urinary retention consulting Dr Keen Plan: [facility] protocol Pain control IVF 08/28/20: BM regimen Yeast treamtent Pain control Hold insulin 08/29/20: Florinef JOSE/DANIA wraps IVF Cefepime for UTI 08/30/20 Added Diflucan HLIVF 08/31/20: Monitor closely DC pollock soon 09/01/20: DC pollock Diflucan Monitor closely 09/02/20: DC Cefepime Diflucan Bladder meds 09/03/20: Bladder management Diflucan Insulin 09/04/20: Monitor labs Diflucan PO Monistat cream 09/05/20: Monitor closely Pain control Needs right wrist surgery 09/06/20: DC Wed? right wrist surgery 09/07/20: DC Wed Monitor pain 09/08/20: DC tomorrow (1) Burst fracture of thoracic vertebra Status: Acute ASHLYN WINTERS DO Sep 08, 2020 08:56
[2020-09-08] MEDS: amLODIPine 5 MG (NORVASC) TAB PO SCH (08:57)
[2020-09-08] MEDS: lisINopril 10 MG (PRINIVIL) TABLET PO SCH (08:57)
[2020-09-08] MEDS: CARVEDILOL 12.5 MG (COREG) TABLET PO SCH ×2 (08:58→21:09)
[2020-09-08] MEDS: KCL 10 MEQ TAB (MICRO K) PO SCH ×3 (08:58→17:06)
[2020-09-08] MEDS: fluCOnazole (DIFLUCAN) 100 MG TAB PO SCH (08:58)
[2020-09-08] MEDS: PANTOPRAZOLE 40 MG (PROTONIX) TAB PO SCH (08:58)
[2020-09-08] MEDS: DOCUSATE SODIUM 100 MG (COLACE) CAP PO SCH ×2 (08:59→21:14)
[2020-09-08] MEDS: polyethylene glycoL POWDER 17 GM (MIRALAX) PACK PO SCH ×2 (08:59→21:14)
[2020-09-08] MEDS: NICOTINE 21 MG (NICODERM) PATCH TD SCH (09:00)
[2020-09-08] MEDS: NICOTINE PATCH REMOVAL TP SCH (09:00)
[2020-09-08] MEDS: SENNA W/DOCUSATE (SENOKOT S) TABLET PO SCH ×2 (09:00→21:15)
[2020-09-08] MEDS: ASPIRIN E.C. 325 MG (ECOTRIN) TABLET PO SCH (09:02)
[2020-09-08] MEDS: MICONAZOLE NITRATE 2% CRM 30 GM TP SCH ×4 (09:04→21:10)
--- NOTE | 2020-09-08 09:31 | Occupational Ther Daily Note ---
OT Current Status-Daily Note Subjective Pt laying in bed, agreeable to OT tx. Pt expresses desire to return home today, but understands if she is unable to discharge until tomorrow. Mental Status/Objective Patient Orientation: Person, Place, Time, Situation ADL-Treatment Therapy Code Descriptions/Definitions Functional [place] Measure: 0=Not Assessed/NA 4=Minimal Assistance 1=Total Assistance 5=Supervision or Setup 2=Maximal Assistance 6=Modified [place] 3=Moderate Assistance 7=Complete IndependenceSCALE: Activities may be completed with or without assistive devices. 8-Dmdwvijmwx-zzmfeng completes the activity by him/herself with no assistance from a helper. 5-Set-up or Clean-up Assistance-helper sets up or cleans up; patient completes activity. [place] assists only prior to or following the activity. 4-Supervision or Touching Assistance-helper provides verbal cues and/or touching/steadying and/or contact guard assistance as patient completes a ctivity. Assistance may be provided throughout the activity or intermittently. 3-Partial/Moderate Assistance-helper does LESS THAN HALF the effort. [place] lifts, holds or supports trunk or limbs, but provides less than half the effort. 2-Substantial/Maximal Assistance-helper does MORE THAN HALF the effort. [place] lifts or holds trunk or limbs and provides more than half the effort. 7-Espdvyszf-etktvn does ALL the effort. Patient does none of the effort to complete the activity. Or, the assistance of 2 or more helpers is required for the patient to complete the activity. If activity was not attempted, code reason: 7-Patient Refused. 9-Not Applicable-not attempted and the patient did not perform the activity before the current illness, exacerbation or injury. 10-Not Attempted due to Environmental Limitations-(lack of equipment, weather restraints, etc.). 88-Not Attempted due to Medical Conditions or Safety Concerns. Upper Body Dressing (QC): 5 (set up, pt donned back brace with increased time.) Other Treatment Pt declines ADL tx on this date, as she completed them yesterday. Agreeable to OT tx in therapy gym. Pt transferred supine to sit EOB, donning back brace with increased time. Pt then used R platform walker to ambulate into therapy gym, SBA. In order to increase LUE strength, activity tolerance, and coordination, pt completed fine motor task, placing/removing 1" pegs into foam pegboard. Pt completed x100 pegs, rest breaks as needed. sit to stand, CGA from chair, then pt used R platform walker to return to her room, SBA. Pt transferred to recliner. Post tx, pt seated in recliner, call light in reach and all needs met. Education OT Patient Education: Correct positioning, Energy conservation, Exercise program, Modified ADL techniques, Progress toward Goal/Update tx plan, Purpose of tx/functional activities, Rehab process Teaching Recipient: Patient Teaching Methods: Discussion Response to Teaching: Verbalize Understanding OT Short Term Goals Short Term Goals Time Frame: Sep 09, 2020 Toileting hygiene: 3 Shower/bathe self: 3 Upper body dressin Lower body dressin Putting on/taking off footwear: 3 OT Bone Density Technician Goals Bone Density Technician Goals Time Frame: September 25, 2020 Eating (QC): 6 Oral Hygiene (QC): 6 Toileting Hygiene (QC): 4 Shower/Bathe Self (QC): 4 Upper Body Dressing (QC): 5 Lower Body Dressing (QC): 4 On/Off Footwear (QC): 4 Additional Goals: 1-Demonstrate ADL Tasks, 2-Verbalize Understanding, 3- ImproveStrength/Babatunde 1=Demonstrate adherence to instructed precautions during ADL tasks. 2=Patient will verbalize/demonstrate understanding of assistive devices/modifications for ADL. 3=Patient will improve strength/tolerance for activity to enable patient to perform ADL's. OT Education/Plan Problem List/Assessment Assessment: Decreased Activ Tolerance, Decreased UE Strength, Impaired Funct Balance, Impaired I ADL's, Impaired Self-Care Skills, Restricted Funct UE ROM Discharge Recommendations Plan/Recommendations: Continue POC Treatment Plan/Plan of Care Patient would benefit from OT for education, treatment and training to promote independence in ADL's, mobility, safety and/or upper extremity function for ADL's. Plan of Care: ADL Retraining, Functional Mobility, Group Exercise/Act as Ind, UE Funct Exercise/Act Treatment Duration: September 25, 2020 Frequency: At least 5 of 7 days/Wk (IRF) Estimated Hrs Per Day: 1.5 hours per day Rehab Potential: Guarded Time/GCodes Start Time: 09:00 Stop Time: 10:00 Total Time Billed (hr/min): 60 Billed Treatment Time 1, ADL (15'), FA 3 (45') YUNIEL GILBERT OT Sep 08, 2020 09:31
--- NOTE | 2020-09-08 10:22 | Progress Note - Urology ---
Progress Note-Urology Progress Notes/Assess & Plan Progress/Assessment & Plan CONTINUES VOIDING WELL AND EMPTIES. PLAN 1. DC FLOMAX 2. CHECK PVR TODAY AND DECIDE DOSE OF UROCHOLINE 3. PATIENT GOING HOME TOMORROW 4. PATIENT IS HAVING WRIST SURGERY ON MONDAY, RECOMMEND KEEP ON URECHOLINE PERIOPERATIVELY AND DECIDE ON IT POSTOPERATIVELY 5. WE WILL SEE HER PRN Final Diagnosis URINE RETENTION LIANNE VAZQUEZ MD Sep 08, 2020 10:22
[2020-09-08] MEDS: GABAPENTIN 600 MG (NEURONTIN) TAB PO PRN (11:20)
--- NOTE | 2020-09-08 13:37 | Physical Therapy Daily Note ---
PT Daily Note-Current Subjective Pt finishing lunch upon arrival and agrees to PT. Pt reports she wants to use the new platform walker that she got. States she wishes the spasm would go away because they are the worst part. Pain Location Body Site: Hip Comment: reports pain in hip w/ spasms but does not rate Mental Status Patient Orientation: Person, Place, Time, Situation Attachments: Other-See Comments (mask while out of room ) Transfers SCALE: Activities may be completed with or without assistive devices. 6-Pfygsvudvz-sgrmnge completes the activity by him/herself with no assistance from a helper. 5-Set-up or Clean-up Assistance-helper sets up or cleans up; patient completes activity. [place] assists only prior to or following the activity. 4-Supervision or Touching Assistance-helper provides verbal cues and/or touching/steadying and/or contact guard assistance as patient completes activity. Assistance may be provided throughout the activity or intermittently. 3-Partial/Moderate Assistance-helper does LESS THAN HALF the effort. [place] lifts, holds or supports trunk or limbs, but provides less than half the effort. 2-Substantial/Maximal Assistance-helper does MORE THAN HALF the effort. [place] lifts or holds trunk or limbs and provides more than half the effort. 5-Rnbctmyuj-kzuewm does ALL the effort. Patient does none of the effort to complete the activity. Or, the assistance of 2 or more helpers is required for the patient to complete the activity. If activity was not attempted, code reason: 7-Patient Refused. 9-Not Applicable-not attempted and the patient did not perform the activity before the current illness, exacerbation or injury. 10-Not Attempted due to Environmental Limitations-(lack of equipment, weather restraints, etc.). 88-Not Attempted due to Medical Conditions or Safety Concerns. Sit to Stand (QC): 5 Weight Bearing Right Lower Extremity: Right Weight Bearing/Tolerated Left Lower Extremity: Left Weight Bearing/Tolerated NO WEIGHT BEARING RIGHT UPPER EXTREMITY Gait Training Does the Patient Walk?: Yes Distance: 75' x 2 Walk 10 feet (QC): 5 Walk 50 ft with 2 Turns(QC): 5 Gait Persons Needed: 1 Gait Assistive Device: Walker Platform Exercises Standing: Retro gait, Side steps, Step-ups Standing Reps: 6 Treatments Pt finishing lunch upon arrival. Rolls over and applies TLSO brace. Sit-stand then amb to therapy gym. Performs standing exs in // bars w/ rest breaks in between. Then amb back to room and takes off brace at EOB and TF to bed. Assessment Current Status: Good Progress Performed step ups in // bars for first time and pt reports that when she tries to go up w/ her left foot that it produces the same spasms in her hip that sit- stand does. Instructed pt to asc w/ RLE to combat this and desc w/ LLE. This seemed to help pt perform steps ups much better. Pt able to apply TLSO brace w/o help and sit-stand only requires CGA. Pt in bed when PT departs call light in hand and all needs met. PT Short Term Goals Short Term Goals Time Frame: Sep 04, 2020 Roll Left & Right: 3 Sit to lyin Lying to sitting on side of be: 3 Sit to stand: 3 Chair/ywb-uq-vqkjz transfer: 3 Toilet transfer: 3 Car transfer: 3 Walk 10 feet: 3 Walk 50 feet with two turns: 3 Walk 150 feet: 3 Walking 10ft on uneven surface: 3 1 step (curb): 3 4 steps: 3 Picking up objects: 88 PT Longterm Goals Longterm Goals PT Longterm Goals Time Frame: Sep 18, 2020 Roll Left & Right (QC): 4 Sit to Lying (QC): 4 Lying-Sitting on Side/Bed(QC): 4 Sit to Stand (QC): 4 Chair/Cyl-kk-Kgzdv Xfer(QC): 4 Toilet Transfer (QC): 4 Car Transfer (QC): 4 Does the Patient Walk: No and Walking Goal IS indicated Walk 10 feet (QC): 4 Walk 50ft with 2 Turns (QC): 4 Walk 150 ft (QC): 4 Walking 10ft on Uneven Surface: 4 1 Step (curb) (QC): 4 4 Steps (QC): 4 12 Steps (QC): 88 Picking up an Object (QC): 88 Wheel 50 feet with 2 turns (QC: 6 Wheel 150 feet: 6 PT Plan Problem List Problem List: Activity Tolerance, Functional Strength Treatment/Plan Treatment Plan: Continue Plan of Care Treatment Plan: Bed Mobility, Education, Functional Activity Babatunde, Functional Strength, Group Therapy, Gait, Safety, Therapeutic Exercise, Transfers Treatment Duration: Sep 18, 2020 Frequency: At least 5 of 7 days/Wk (IRF) Estimated Hrs Per Day: 1.5 hours per day Patient and/or Family Agrees t: Yes Safety Risks/Education Patient Education: Correct Positioning Teaching Recipient: Patient, Family Teaching Methods: Demonstration, Discussion Response to Teaching: Verbalize Understanding, Return Demonstration Time/GCodes Time In: 1300 Time Out: 1330 Total Billed Treatment Time: 30 Total Billed Treatment 1, GT (10m), EX (20m) ELLEN LINARES SEISMIC INTERPRETER Sep 08, 2020 13:37
--- NOTE | 2020-09-08 14:06 | Occupational Ther Daily Note ---
OT Current Status-Daily Note Subjective Pt in bed, agreeable to OT Tx. Pt states unable to locate her wallet, nursing staff aware. ADL-Treatment Therapy Code Descriptions/Definitions Functional [place] Measure: 0=Not Assessed/NA 4=Minimal Assistance 1=Total Assistance 5=Supervision or Setup 2=Maximal Assistance 6=Modified [place] 3=Moderate Assistance 7=Complete IndependenceSCALE: Activities may be completed with or without assistive devices. 8-Colosrlgeh-fvoquvx completes the activity by him/herself with no assistance from a helper. 5-Set-up or Clean-up Assistance-helper sets up or cleans up; patient completes activity. [place] assists only prior to or following the activity. 4-Supervision or Touching Assistance-helper provides verbal cues and/or touching/steadying and/or contact guard assistance as patient completes activity. Assistance may be provided throughout the activity or intermittently. 3-Partial/Moderate Assistance-helper does LESS THAN HALF the effort. [place] lifts, holds or supports trunk or limbs, but provides less than half the effort. 2-Substantial/Maximal Assistance-helper does MORE THAN HALF the effort. [place] lifts or holds trunk or limbs and provides more than half the effort. 8-Ycvdlnpwf-pdzmaf does ALL the effort. Patient does none of the effort to complete the activity. Or, the assistance of 2 or more helpers is required for the patient to complete the activity. If activity was not attempted, code reason: 7-Patient Refused. 9-Not Applicable-not attempted and the patient did not perform the activity before the current illness, exacerbation or injury. 10-Not Attempted due to Environmental Limitations-(lack of equipment, weather restraints, etc.). 88-Not Attempted due to Medical Conditions or Safety Concerns. Eating (QC): 6 Other Treatment Pt agreeable to OT Tx, states IND with lunch. Pt transferred supine to sit EOB, donned back brace, then used R platform walker to ambulate to [facility] kitchen area. Pt performed functional reaching task, using open tenter operator to gather items in kitchen cabinets, required min verbal cues to maintain back precautions and for safety using walker. Pt returned to her room, transferring back to bed. Post tx, pt laying in bed, call light in reach and all needs met. Education OT Patient Education: Correct positioning, Modified ADL techniques, Progress toward Goal/Update tx plan, Purpose of tx/functional activities Teaching Recipient: Patient Teaching Methods: Discussion Response to Teaching: Verbalize Understanding OT Short Term Goals Short Term Goals Time Frame: Sep 09, 2020 Toileting hygiene: 3 Shower/bathe self: 3 Upper body dressin Lower body dressin Putting on/taking off footwear: 3 OT [place] Goals Senior Living Goals Time Frame: September 25, 2020 Eating (QC): 6 Oral Hygiene (QC): 6 Toileting Hygiene (QC): 4 Shower/Bathe Self (QC): 4 Upper Body Dressing (QC): 5 Lower Body Dressing (QC): 4 On/Off Footwear (QC): 4 Additional Goals: 1-Demonstrate ADL Tasks, 2-Verbalize Understanding, 3- ImproveStrength/Bab[place]unde 1=Demonstrate adherence to instructed precautions during ADL tasks. 2=Patient will verbalize/demonstrate understanding of assistive devices/modifi cations for ADL. 3=Patient will improve strength/tolerance for activity to enable patient to perform ADL's. OT Education/Plan Problem List/Assessment Assessment: Decreased Activ Tolerance, Decreased UE Strength, Impaired Funct Balance, Impaired I ADL's, Impaired Self-Care Skills Discharge Recommendations Plan/Recommendations: Continue POC Treatment Plan/Plan of Care Patient would benefit from OT for education, treatment and training to promote independence in ADL's, mobility, safety and/or upper extremity function for ADL's. Plan of Care: ADL Retraining, Functional Mobility, Group Exercise/Act as Ind, UE Funct Exercise/Act Treatment Duration: September 25, 2020 Frequency: At least 5 of 7 days/Wk (IRF) Estimated Hrs Per Day: 1.5 hours per day Rehab Potential: Guarded Time/GCodes Start Time: 13:30 Stop Time: 14:00 Total Time Billed (hr/min): 30 Billed Treatment Time 1, FA 2 YUNIEL GILBERT OT Sep 08, 2020 14:06
[2020-09-08 20:00] VITALS: BP 136/85
[2020-09-08] MEDS ORDERED: NICO1PAT34 TD (20:48)
[2020-09-08] MEDS ORDERED: INSU100I29 SC (20:48)
[2020-09-08] MEDS ORDERED: AMLO2.5T2 PO (20:48)
[2020-09-08] MEDS ORDERED: CYCL10TA9 PO (20:48)
[2020-09-08] MEDS ORDERED: ASPI325T32 PO (20:48)
[2020-09-08] MEDS ORDERED: LISI10TA25 PO (20:48)
[2020-09-08] MEDS ORDERED: BTH10T PO (20:48)
[2020-09-08] MEDS ORDERED: SUCR1TAB PO (20:48)
[2020-09-08] MEDS ORDERED: PANT40TA52 PO (20:48)
[2020-09-08] MEDS ORDERED: LEVO175T2 PO (20:48)
[2020-09-08] MEDS ORDERED: POTA10TA6 PO (20:48)
[2020-09-08] MEDS ORDERED: ALPR.25T PO (20:48)
[2020-09-08] MEDS ORDERED: OXC5T PO (20:48)
[2020-09-08] MEDS ORDERED: GBPN600T PO (20:48)
--- NOTE | 2020-09-08 20:51 | D/C HH Face to Face Order ---
D/C Face to Face Orders Reconcile Patient Problems Problems Reviewed?: Yes Instructions for Patient Via [facility], Patient Instructions/FollowUp: [facility] 1 week HH can start 09/11/20 Physician to follow Patient: [facility] Discharge Diet for Home: ADA Diet Patient Problems: T12 burst fracture Right wrist fracture Patient Data-Allergies,Ht & Wt Patient Allergies: Coded Allergies: Penicillins (Verified Allergy, Unknown, 12/15/15) gabapentin (Verified Allergy, Unknown, 12/15/15) Height (Feet): 5 Height (Inches): 7.00 Weight (Pounds): 165 Weight (Ounces): 0.0 Home Health Need/Face to Face Date of Face to Face: Sep 08, 2020 Clinical Findings: Instability, Muscle weakness, Pain with ambulation, Unsteady gait I have seen Pt [id number]: Yes Discharged To: Home Diagnosis/Conditions: T12 burst fracture Right wrist fracture Patient is Homebound due to: Pain w/ambulation Homebound Status Due to the above stated illness, injury or surgical procedure (medical condition or diagnosis) and associated clinical findings, the patient is home bound because of his/her inability to leave home except with aid of a supportive device and/or person AND leaving the home requires a considerable and taxing effort or is medically contraindicated. Pt req the following assistanc: [facility] Nursing Orders Home Health Services Order: Nursing Services, Production Staff Worker-Evaluate & Treat, Physical Therapy-Evaluate & Treat Therapy Orders OK to start services 09/11/20 Certify Stmt I certify that this patient is under my care and that I, a nurse practitioner or a physician; a assistant hall director working with me, had a face to face encounter that - meets the physician face to face encounter requirements with this patient as dated. ASHLYN WINTERS DO Sep 08, 2020 20:51
[2020-09-08] MEDS: AMITRIPTYLINE 50 MG (ELAVIL) TAB PO SCH (21:09)
--- NOTE | 2020-09-09 06:08 | Discharge Summary ---
Diagnosis/Chief Complaint Date of Admission Aug 27, 2020 at 18:31 Date of Discharge Discharge Date: Sep 09, 2020 Discharge Diagnosis Status post fall with T12 burst fracture s/p laminectomy and fusion 08/24/2020 X- ray of the pelvis negative for acute osseous abnormality. Right wrist fracture Hypovitaminosis D: Continue ergocalciferol. Acute kidney injury: Resolved. Hypochloremic hyponatremia: Improved significantly. Hypophosphatemia: s/p Sodium phosphate 15 mmol x 1. Leukocytosis: Essential hypertension but hypotensive here at [facility] so decreased Coreg and started Florinef and JOSE/DANIA to legs Mixed hyperlipidemia: Acquired hypothyroidism: Continue Synthroid. Diabetes mellitus type 2: Continued Lantus and lispro but holding long acting due to hypoglycemia GERD: Protonix. Mood disorder: Continue Elavil and Lexapro. ANALISA: Nocturnal CPAP. Yeast vaginitis Orthostasis placed on IVF and Florinef UTI yeast placed on diflucan 08/30/20 Pollock cath required due to urinary retention consulting Dr Keen Plan: [facility] protocol Pain control IVF 08/28/20: BM regimen Yeast treamtent Pain control Hold insulin 08/29/20: Florinef JOSE/DANIA wraps IVF Cefepime for UTI 08/30/20 Added Diflucan HLIVF 08/31/20: Monitor closely DC pollock soon 09/01/20: DC pollock Diflucan Monitor closely 09/02/20: DC Cefepime Diflucan Bladder meds 09/03/20: Bladder management Diflucan Insulin 09/04/20: Monitor labs Diflucan PO Monistat cream 09/05/20: Monitor closely Pain control Needs right wrist surgery 09/06/20: DC Wed? right wrist surgery 09/07/20: DC Wed Monitor pain 09/08/20: DC tomorrow (1) Burst fracture of thoracic vertebra Status: Acute Discharge Summary Discharge Physical Examination Allergies: Coded Allergies: Penicillins (Verified Allergy, Unknown, 12/15/15) gabapentin (Verified Allergy, Unknown, 12/15/15) Vitals & I&Os Vital Signs Date Time Temp Pulse Resp B/P (MAP) Pulse Ox O2 Delivery O2 Flow Rate FiO2 09/09/20 09:00 36.6 77 16 120/64 98 Room Air General Appearance: Alert, Oriented X3, Cooperative Respiratory: Clear to Auscultation Cardiovascular: Regular Rate Neuro: Normal Gait, Normal Speech, Strength at 5/5 X4 Ext Psych/Mental Status: Mental Status NL Hospital Course Was the Problem List Reviewed?: Yes Hospital course: Pt had an extensive hospital course for 14 days, very complex issues, including orthostatic hypotension, profound dehydration when she arrived along with a yeastinfection, continued urinary retention requiring urology follow-up, iron infusions initiated due to severe iron deficiency and anemia, chronic leukocytosis reactive in nature was monitored, DM was managed with adjusted insulin doses to avoid hypoglycemia and overall Pt obtained good pain control, bowel function returned back to normal and Pt was deemed stable for discharged. Labs (last 24 hrs) Laboratory Tests 08/27/20 18:31: Lab Scanned Report LAB Reports 08/27/20 20:14: Glucometer 162H 08/28/20 05:32: White Blood Count 15.5H, Red Blood Count 2.86L, Hemoglobin 9.3L, Hematocrit 28L, Mean Corpuscular Volume 96, Mean Corpuscular Hemoglobin 33, Mean Corpuscular Hemoglobin Concent 34, Red Cell Distribution Width 13.2, Platelet Count 344, Mean Platelet Volume 9.9, Immature Granulocyte % (Auto) 1, Neutrophils (%) (Auto) 67, Lymphocytes (%) (Auto) 23, Monocytes (%) (Auto) 7, Eosinophils (%) (Auto) 2, Basophils (%) (Auto) 0, Neutrophils # (Auto) 10.4H, Lymphocytes # (Auto) 3.6, Monocytes # (Auto) 1.1H, Eosinophils # (Auto) 0.3, Basophils # (A uto) 0.1, Immature Granulocyte # (Auto) 0.1, Sodium Level 136, Potassium Level 3.3L, Chloride Level 103, Carbon Dioxide Level 23, Anion Gap 10, Blood Urea Nitrogen 10, Creatinine 0.65, Estimat Glomerular Filtration Rate > 60, BUN/Creat inine Ratio 15, Glucose Level 70, Calcium Level 8.2L, Corrected Calcium 9.0, Iron Level 23L, Total Bilirubin 0.7, Aspartate Amino Transf (AST/SGOT) 36H, Alanine Aminotransferase (ALT/SGPT) 24, Alkaline Phosphatase 92, Total Protein 5.2L, Albumin 3.0L, Procalcitonin 0.09 08/28/20 06:03: Lactic Acid Level 1.02 08/28/20 09:13: Glucometer 60*L 08/28/20 10:18: Glucometer 56*L 08/28/20 10:41: Glucometer 105 08/28/20 15:33: Glucometer 148H 08/28/20 20:16: Glucometer 142H 08/29/20 07:07: Glucometer 161H 08/29/20 08:40: Urine Color YELLOW, Urine Clarity SL CLOUDY, Urine pH 6.0, Urine Specific Gonzales 1.025H, Urine Protein TRACEH, Urine Glucose (UA) NEGATIVE, Urine Ketones NEGATIVE, Urine Nitrite NEGATIVE, Urine Bilirubin 1+H, Urine Urobilinogen 2.0, Urine Leukocyte Esterase 1+H, Urine RBC (Auto) NEGATIVE, Urine RBC NONE, Urine WBC >100H, Urine Squamous Epithelial Cells NONE, Urine Crystals NONE, Urine Bacteria FEWH, Urine Casts NONE, Urine Mucus LARGEH, Urine Yeast LARGEH, Urine Culture Indicated YES 08/29/20 08:49: White Blood Count 12.2H, Red Blood Count 2.82L, Hemoglobin 9.0L, Hematocrit 27L, Mean Corpuscular Volume 97, Mean Corpuscular Hemoglobin 32, Mean Corpuscular Hemoglobin Concent 33, Red Cell Distribution Width 13.3, Platelet Count 401H, Mean Platelet Volume 10.0, Immature Granulocyte % (Auto) 0, Neutrophils (%) (Auto) 71, Lymphocytes (%) (Auto) 19, Monocytes (%) (Auto) 8, Eosinophils (%) (Auto) 1, Basophils (%) (Auto) 1, Neutrophils # (Auto) 8.7H, Lymphocytes # (Auto) 2.4, Monocytes # (Auto) 0.9, Eosinophils # (Auto) 0.2, Basophils # (Auto) 0.1, Immature Granulocyte # (Auto) 0.1, Sodium Level 135, Potassium Level 3.8, Chloride Level 101, Carbon Dioxide Level 25, Anion Gap 9, Blood Urea Nitrogen 9, Creatinine 0.66, Estimat Glomerular Filtration Rate > 60, BUN/Creatinine Ratio 14, Glucose Level 154H, Lactic Acid Level 0.82, Calcium Level 8.0L, Corrected Calcium 9.0, Total Bilirubin 0.8, Aspartate Amino Transf (AST/SGOT) 38H, Alanine Aminotransferase (ALT/SGPT) 24, Alkaline Phosphatase 107, Total Protein 5.1L, Albumin 2.8L, Procalcitonin 0.06, Total Cortisol 16.1 08/29/20 11:33: Glucometer 207H 08/29/20 15:47: Glucometer 245H 08/29/20 23:53: Glucometer 240H 08/30/20 03:49: Glucometer 226H 08/30/20 06:45: Glucometer 223H 08/30/20 11:00: Glucometer 267H 08/30/20 16:38: Glucometer 231H 08/30/20 20:13: Glucometer 236H 08/31/20 05:20: White Blood Count 18.0H, Red Blood Count 2.65L, Hemoglobin 8.5L, Hematocrit 26L, Mean Corpuscular Volume 97, Mean Corpuscular Hemoglobin 32, Mean Corpuscular Hemoglobin Concent 33, Red Cell Distribution Width 13.6, Platelet Count 440H, Mean Platelet Volume 10.1, Immature Granulocyte % (Auto) 1, Neutrophils (%) (Auto) 82H, Lymphocytes (%) (Auto) 12, Monocytes (%) (Auto) 5, Eosinophils (%) (Auto) 0, Basophils (%) (Auto) 0, Neutrophils # (Auto) 14.8H, Lymphocytes # (Auto) 2.2, Monocytes # (Auto) 0.9, Eosinophils # (Auto) 0.0, Basophils # (Auto) 0.0, Immature Granulocyte # (Auto) 0.1, Neutrophils % (Manual) 86, Lymphocytes % (Manual) 10, Monocytes % (Manual) 4, Polychromasia SLIGHT, Hypochromasia SLIGHT, Poikilocytosis SLIGHT, Sodium Level 137, Potassium Level 3.2L, Chloride Level 104, Carbon Dioxide Level 25, Anion Gap 8, Blood Urea Nitrogen 11, Creatinine 0.67, Estimat Glomerular Filtration Rate > 60, BUN/Creatinine Ratio 16, Glucose Level 213H, Calcium Level 8.1L, Corrected Calcium 9.1, Total Bilirubin 0.5, Aspartate Amino Transf (AST/SGOT) 15, Alanine Aminotransferase (ALT/SGPT) 19, Alkaline Phosphatase 117, Total Protein 5.1L, Albumin 2.7L 08/31/20 05:35: Procalcitonin 0.06 08/31/20 11:04: Glucometer 169H 08/31/20 15:51: Glucometer 212H 08/31/20 20:21: Glucometer 244H 09/01/20 05:28: White Blood Count 18.5H, Red Blood Count 2.66L, Hemoglobin 8.6L, Hematocrit 26L, Mean Corpuscular Volume 97, Mean Corpuscular Hemoglobin 32, Mean Corpuscular Hemoglobin Concent 33, Red Cell Distribution Width 14.0, Platelet Count 462H, Mean Platelet Volume 9.8, Immature Granulocyte % (Auto) 2, Neutrophils (%) (Auto) 79H, Lymphocytes (%) (Auto) 13, Monocytes (%) (Auto) 6, Eosinophils (%) (Auto) 0, Basophils (%) (Auto) 0, Neutrophils # (Auto) 14.6H, Lymphocytes # (Auto) 2.4, Monocytes # (Auto) 1.0, Eosinophils # (Auto) 0.0, Basophils # (Auto) 0.0, Immature Granulocyte # (Auto) 0.4H, Sodium Level 137, Potassium Level 3.4L, Chloride Level 100, Carbon Dioxide Level 26, Anion Gap 11, Blood Urea Nitrogen 12, Creatinine 0.72, Estimat Glomerular Filtration Rate > 60, BUN/Creatinine Ratio 17, Glucose Level 242H, Lactic Acid Level 1.73, Calcium Level 8.0L, Corrected Calcium 9.0, Total Bilirubin 0.5, Aspartate Amino Transf (AST/SGOT) 33, Alanine Aminotransferase (ALT/SGPT) 25, Alkaline Phosphatase 146H, Total Protein 5.1L, Albumin 2.7L, Procalcitonin 0.03 09/01/20 11:09: Glucometer 250H 09/01/20 15:43: Glucometer 168H 09/01/20 20:37: Glucometer 155H 09/02/20 05:46: Glucometer 83 09/02/20 10:59: Glucometer 209H 09/02/20 15:18: Glucometer 140H 09/02/20 20:05: Glucometer 167H 09/03/20 06:27: Glucometer 139H 09/03/20 10:59: Glucometer 225H 09/03/20 15:37: Glucometer 165H 09/03/20 20:02: Glucometer 216H 09/04/20 06:30: White Blood Count 15.5H, Red Blood Count 3.00L, Hemoglobin 9.7L, Hematocrit 30L, Mean Corpuscular Volume 99, Mean Corpuscular Hemoglobin 32, Mean Corpuscular Hemoglobin Concent 33, Red Cell Distribution Width 15.4H, Platelet Count 546H, Mean Platelet Volume 9.6, Immature Granulocyte % (Auto) 1, Neutrophils (%) (Auto) 69, Lymphocytes (%) (Auto) 23, Monocytes (%) (Auto) 5, Eosinophils (%) (Auto) 1, Basophils (%) (Auto) 0, Neutrophils # (Auto) 10.8H, Lymphocytes # (Auto) 3.5, Monocytes # (Auto) 0.8, Eosinophils # (Auto) 0.2, Basophils # (Auto) 0.1, Immature Granulocyte # (Auto) 0.1, Sodium Level 137, Potassium Level 3.5L, Chloride Level 93L, Carbon Dioxide Level 33H, Anion Gap 11, Blood Urea Nitrogen 10, Creatinine 0.70, Estimat Glomerular Filtration Rate > 60, BUN/Creatinine Ratio 14, Glucose Level 185H, Calcium Level 8.5, Corrected Calcium 9.2, Total Bi lirubin 0.7, Aspartate Amino Transf (AST/SGOT) 24, Alanine Aminotransferase (ALT/SGPT) 33, Alkaline Phosphatase 231H, Total Protein 5.8L, Albumin 3.1L, Thyroid Stimulating Hormone (TSH) 17.11H 09/04/20 06:31: Glucometer 175H 09/04/20 12:09: Glucometer 166H 09/04/20 15:29: Glucometer 193H 09/04/20 20:17: Glucometer 249H 09/05/20 06:34: Glucometer 175H 09/05/20 11:06: Glucometer 173H 09/05/20 15:42: Glucometer 225H 09/05/20 20:38: Glucometer 220H 09/06/20 06:06: Glucometer 147H 09/06/20 11:02: Glucometer 159H 09/06/20 15:13: Glucometer 146H 09/06/20 20:04: Glucometer 180H 09/07/20 06:17: Glucometer 208H, White Blood Count 13.0H, Red Blood Count 2.99L, Hemoglobin 9.6L , Hematocrit 31L, Mean Corpuscular Volume 102H, Mean Corpuscular Hemoglobin 32, Mean Corpuscular Hemoglobin Concent 31L, Red Cell Distribution Width 16.3H, Platelet Count 450H, Mean Platelet Volume 9.6, Immature Granulocyte % (Auto) 1, Neutrophils (%) (Auto) 62, Lymphocytes (%) (Auto) 28, Monocytes (%) (Auto) 8, Eosinophils (%) (Auto) 2, Basophils (%) (Auto) 1, Neutrophils # (Auto) 8.0H, Lymphocytes # (Auto) 3.6, Monocytes # (Auto) 1.0, Eosinophils # (Auto) 0.2, Basophils # (Auto) 0.1, Immature Granulocyte # (Auto) 0.1, Sodium Level 135, Potassium Level 4.6, Chloride Level 96L, Carbon Dioxide Level 29, Anion Gap 10, Blood Urea Nitrogen 8, Creatinine 0.71, Estimat Glomerular Filtration Rate > 60, BUN/Creatinine Ratio 11, Glucose Level 218H, Calcium Level 9.1, Corrected Calcium 9.7, Total Bilirubin 0.5, Aspartate Amino Transf (AST/SGOT) 28, Alanine Aminotransferase (ALT/SGPT) 24, Alkaline Phosphatase 251H, Total Protein 6.0L, Albumin 3.2 09/07/20 11:35: Glucometer 231H 09/07/20 15:42: Glucometer 231H 09/07/20 20:51: Glucometer 181H 09/08/20 05:56: Glucometer 223H 09/08/20 11:00: Glucometer 188H 09/08/20 15:27: Glucometer 167H 09/08/20 20:12: Glucometer 263H 09/09/20 05:46: Glucometer 202H Microbiology 08/29/20 Urine Culture - Final, Complete YEAST Pending Labs Microbiology Date/Time Source Procedure Growth Status 08/29/20 08:40 Urine Clean Catch Urine Culture - Final YEAST Complete Laboratory Tests 08/27/20 18:31: Lab Scanned Report LAB Reports 08/27/20 20:14: Glucometer 162 08/28/20 05:32: White Blood Count 15.5, Red Blood Count 2.86, Hemoglobin 9.3, Hematocrit 28, Mean Corpuscular Volume 96, Mean Corpuscular Hemoglobin 33, Mean Corpuscular Hemoglobin Concent 34, Red Cell Distribution Width 13.2, Platelet Count 344, Mean Platelet Volume 9.9, Immature Granulocyte % (Auto) 1, Neutrophils (%) (Auto) 67, Lymphocytes (%) (Auto) 23, Monocytes (%) (Auto) 7, Eosinophils (%) (Auto) 2, Basophils (%) (Auto) 0, Neutrophils # (Auto) 10.4, Lymphocytes # (Auto) 3.6, Monocytes # (Auto) 1.1, Eosinophils # (Auto) 0.3, Basophils # (Auto) 0.1, Immature Granulocyte # (Auto) 0.1, Sodium Level 136, Potassium Level 3.3, Chloride Level 103, Carbon Dioxide Level 23, Anion Gap 10, Blood Urea Nitrogen 10, Creatinine 0.65, Estimat Glomerular Filtration Rate > 60, BUN/Creatinine Ratio 15, Glucose Level 70, Calcium Level 8.2, Corrected Calcium 9.0, Iron Level 23, Total Bilirubin 0.7, Aspartate Amino Transf (AST/SGOT) 36, Alanine Aminotransferase (ALT/SGPT) 24, Alkaline Phosphatase 92, Total Protein 5.2, Albumin 3.0, Procalcitonin 0.09 08/28/20 06:03: Lactic Acid Level 1.02 08/28/20 09:13: Glucometer 60 08/28/20 10:18: Glucometer 56 08/28/20 10:41: Glucometer 105 08/28/20 15:33: Glucometer 148 08/28/20 20:16: Glucometer 142 08/29/20 07:07: Glucometer 161 08/29/20 08:40: Urine Color YELLOW, Urine Clarity SL CLOUDY, Urine pH 6.0, Urine Specific Gonzales 1.025, Urine Protein TRACE, Urine Glucose (UA) NEGATIVE, Urine Ketones NEGATIVE, Urine Nitrite NEGATIVE, Urine Bilirubin 1+, Urine Urobilinogen 2.0, Urine Leukocyte Esterase 1+, Urine RBC (Auto) NEGATIVE, Urine RBC NONE, Urine WBC >100, Urine Squamous Epithelial Cells NONE, Urine Crystals NONE, Urine Bacteria FEW, Urine Casts NONE, Urine Mucus LARGE, Urine Yeast LARGE, Urine Culture Indicated YES 08/29/20 08:49: White Blood Count 12.2, Red Blood Count 2.82, Hemoglobin 9.0, Hematocrit 27, Mean Corpuscular Volume 97, Mean Corpuscular Hemoglobin 32, Mean Corpuscular Hemoglobin Concent 33, Red Cell Distribution Width 13.3, Platelet Count 401, Mean Platelet Volume 10.0, Immature Granulocyte % (Auto) 0, Neutrophils (%) (Auto) 71, Lymphocytes (%) (Auto) 19, Monocytes (%) (Auto) 8, Eosinophils (%) (Auto) 1, Basophils (%) (Auto) 1, Neutrophils # (Auto) 8.7, Lymphocytes # (Auto) 2.4, Monocytes # (Auto) 0.9, Eosinophils # (Auto) 0.2, Basophils # (Auto) 0.1, Immature Granulocyte # (Auto) 0.1, Sodium Level 135, Potassium Level 3.8, Chloride Level 101, Carbon Dioxide Level 25, Anion Gap 9, Blood Urea Nitrogen 9, Creatinine 0.66, Estimat Glomerular Filtration Rate > 60, BUN/Creatinine Ratio 14, Glucose Level 154, Lactic Acid Level 0.82, Calcium Level 8.0, Corrected Calcium 9.0, Total Bilirubin 0.8, Aspartate Amino Transf (AST/SGOT) 38, Alanine Aminotransferase (ALT/SGPT) 24, Alkaline Phosphatase 107, Total Protein 5.1, Albumin 2.8, Procalcitonin 0.06, Total Cortisol 16.1 08/29/20 11:33: Glucometer 207 08/29/20 15:47: Glucometer 245 08/29/20 23:53: Glucometer 240 08/30/20 03:49: Glucometer 226 08/30/20 06:45: Glucometer 223 08/30/20 11:00: Glucometer 267 08/30/20 16:38: Glucometer 231 08/30/20 20:13: Glucometer 236 08/31/20 05:20: White Blood Count 18.0, Red Blood Count 2.65, Hemoglobin 8.5, Hematocrit 26, Mean Corpuscular Volume 97, Mean Corpuscular Hemoglobin 32, Mean Corpuscular Hemoglobin Concent 33, Red Cell Distribution Width 13.6, Platelet Count 440, Mean Platelet Volume 10.1, Immature Granulocyte % (Auto) 1, Neutrophils (%) (Auto) 82, Lymphocytes (%) (Auto) 12, Monocytes (%) (Auto) 5, Eosinophils (%) (Auto) 0, Basophils (%) (Auto) 0, Neutrophils # (Auto) 14.8, Lymphocytes # (Auto) 2.2, Monocytes # (Auto) 0.9, Eosinophils # (Auto) 0.0, Basophils # (Auto) 0.0, Immature Granulocyte # (Auto) 0.1, Neutrophils % (Manual) 86, Lymphocytes % (Manual) 10, Monocytes % (Manual) 4, Polychromasia SLIGHT, Hypochromasia SLIGHT, Poikilocytosis SLIGHT, Sodium Level 137, Potassium Level 3.2, Chloride Level 104, Carbon Dioxide Level 25, Anion Gap 8, Blood Urea Nitrogen 11, Creatinine 0.67, Estimat Glomerular Filtration Rate > 60, BUN/Creatinine Ratio 16, Glucose Level 213, Calcium Level 8.1, Corrected Calcium 9.1, Total Bilirubin 0.5, Aspartate Amino Transf (AST/SGOT) 15, Alanine Aminotransferase (ALT/SGPT) 19, Alkaline Phosphatase 117, Total Protein 5.1, Albumin 2.7 08/31/20 05:35: Procalcitonin 0.06 08/31/20 11:04: Glucometer 169 08/31/20 15:51: Glucometer 212 08/31/20 20:21: Glucometer 244 09/01/20 05:28: White Blood Count 18.5, Red Blood Count 2.66, Hemoglobin 8.6, Hematocrit 26, Mean Corpuscular Volume 97, Mean Corpuscular Hemoglobin 32, Mean Corpuscular Hemoglobin Concent 33, Red Cell Distribution Width 14.0, Platelet Count 462, Mean Platelet Volume 9.8, Immature Granulocyte % (Auto) 2, Neutrophils (%) (Auto) 79, Lymphocytes (%) (Auto) 13, Monocytes (%) (Auto) 6, Eosinophils (%) (Auto) 0, Basophils (%) (Auto) 0, Neutrophils # (Auto) 14.6, Lymphocytes # (Auto) 2.4, Monocytes # (Auto) 1.0, Eosinophils # (Auto) 0.0, Basophils # (Auto) 0.0, Immature Granulocyte # (Auto) 0.4, Sodium Level 137, Potassium Level 3.4, Chloride Level 100, Carbon Dioxide Level 26, Anion Gap 11, Blood Urea Nitrogen 12, Creatinine 0.72, Estimat Glomerular Filtration Rate > 60, BUN/Creatinine Ratio 17, Glucose Level 242, Lactic Acid Level 1.73, Calcium Level 8.0, Corrected Calcium 9.0, Total Bilirubin 0.5, Aspartate Amino Transf (AST/SGOT) 33, Alanine Aminotransferase (ALT/SGPT) 25, Alkaline Phosphatase 146, Total Protein 5.1, Albumin 2.7, Procalcitonin 0.03 09/01/20 11:09: Glucometer 250 09/01/20 15:43: Glucometer 168 09/01/20 20:37: Glucometer 155 09/02/20 05:46: Glucometer 83 09/02/20 10:59: Glucometer 209 09/02/20 15:18: Glucometer 140 09/02/20 20:05: Glucometer 167 09/03/20 06:27: Glucometer 139 09/03/20 10:59: Glucometer 225 09/03/20 15:37: Glucometer 165 09/03/20 20:02: Glucometer 216 09/04/20 06:30: White Blood Count 15.5, Red Blood Count 3.00, Hemoglobin 9.7, Hematocrit 30, Mean Corpuscular Volume 99, Mean Corpuscular Hemoglobin 32, Mean Corpuscular Hemoglobin Concent 33, Red Cell Distribution Width 15.4, Platelet Count 546, Mean Platelet Volume 9.6, Immature Granulocyte % (Auto) 1, Neutrophils (%) (Auto) 69, Lymphocytes (%) (Auto) 23, Monocytes (%) (Auto) 5, Eosinophils (%) (Auto) 1, Basophils (%) (Auto) 0, Neutrophils # (Auto) 10.8, Lymphocytes # (Auto) 3.5, Monocytes # (Auto) 0.8, Eosinophils # (Auto) 0.2, Basophils # (Auto) 0.1, Immature Granulocyte # (Auto) 0.1, Sodium Level 137, Potassium Level 3.5, Chloride Level 93, Carbon Dioxide Level 33, Anion Gap 11, Blood Urea Nitrogen 10, Creatinine 0.70, Estimat Glomerular Filtration Rate > 60, BUN/Creatinine Ratio 14, Glucose Level 185, Calcium Level 8.5, Corrected Calcium 9.2, Total Bilirubin 0.7, Aspartate Amino Transf (AST/SGOT) 24, Alanine Aminotransferase (ALT/SGPT) 33, Alkaline Phosphatase 231, Total Protein 5.8, Albumin 3.1, Thyroid Stimulating Hormone (TSH) 17.11 09/04/20 06:31: Glucometer 175 09/04/20 12:09: Glucometer 166 09/04/20 15:29: Glucometer 193 09/04/20 20:17: Glucometer 249 09/05/20 06:34: Glucometer 175 09/05/20 11:06: Glucometer 173 09/05/20 15:42: Glucometer 225 09/05/20 20:38: Glucometer 220 09/06/20 06:06: Glucometer 147 09/06/20 11:02: Glucometer 159 09/06/20 15:13: Glucometer 146 09/06/20 20:04: Glucometer 180 09/07/20 06:17: Glucometer 208, White Blood Count 13.0, Red Blood Count 2.99, Hemoglobin 9.6, Hematocrit 31, Mean Corpuscular Volume 102, Mean Corpuscular Hemoglobin 32, Mean Corpuscular Hemoglobin Concent 31, Red Cell Distribution Width 16.3, Platelet Count 450, Mean Platelet Volume 9.6, Immature Granulocyte % (Auto) 1, Neutrophils (%) (Auto) 62, Lymphocytes (%) (Auto) 28, Monocytes (%) (Auto) 8, Eosinophils (%) (Auto) 2, Basophils (%) (Auto) 1, Neutrophils # (Auto) 8.0, Lymphocytes # (Auto) 3.6, Monocytes # (Auto) 1.0, Eosinophils # (Auto) 0.2, Basophils # (Auto) 0.1, Immature Granulocyte # (Auto) 0.1, Sodium Level 135, Potassium Level 4.6, Chloride Level 96, Carbon Dioxide Level 29, Anion Gap 10, Blood Urea Nitrogen 8, Creatinine 0.71, Estimat Glomerular Filtration Rate > 60, BUN/Creatinine Ratio 11, Glucose Level 218, Calcium Level 9.1, Corrected Calcium 9.7, Total Bilirubin 0.5, Aspartate Amino Transf (AST/SGOT) 28, Alanine Aminotransferase (ALT/SGPT) 24, Alkaline Phosphatase 251, Total Protein 6.0, Albumin 3.2 09/07/20 11:35: Glucometer 231 09/07/20 15:42: Glucometer 231 09/07/20 20:51: Glucometer 181 09/08/20 05:56: Glucometer 223 09/08/20 11:00: Glucometer 188 09/08/20 15:27: Glucometer 167 09/08/20 20:12: Glucometer 263 09/09/20 05:46: Glucometer 202 Discharge Home Medications: Active Scripts Active Urecholine (Bethanechol Chloride) 10 Mg Tablet 25 Mg PO ACHS Norvasc (Amlodipine Besylate) 2.5 Mg Tablet 2.5 Mg PO DAILY Synthroid (Levothyroxine Sodium) 175 Mcg Tablet 175 Mcg PO DAILY Pantoprazole Sodium 40 Mg Tablet.dr 40 Mg PO DAILY Sucralfate 1 Gm Tablet 1 Gm PO ACHS Klor-Con 10 (Potassium Chloride) 10 Meq Tablet.er 10 Meq PO DAILY Xanax Tablet (Alprazolam) 0.25 Mg Tab 0.25 Mg PO Q8H PRN Gabapentin 600 Mg Tablet 600 Mg PO TID PRN Oxyir Tablet (Oxycodone HCl) 5 Mg Tab 10 Mg PO Q3HR PRN Aspirin EC (Aspirin) 325 Mg Tablet.dr 325 Mg PO DAILY Lisinopril 10 Mg Tablet 10 Mg PO DAILY Nicoderm Cq (Nicotine) 1 Each Patch.td24 21 Mg TD DAILY@0900 Cyclobenzaprine HCl 10 Mg Tablet 10 Mg PO TID PRN Levemir Flextouch (Insulin Detemir) 100 Unit/1 Ml Insuln.pen 10 Units SC BID 30 Days Reported Stool Softener (Docusate Sodium) 100 Mg Capsule 1-2 Mg PO BID PRN Multivitamin 1 Each Tablet 1 Each PO DAILY Tylenol Extra Strength (Acetaminophen) 500 Mg Tablet 1,000 Mg PO Q8H PRN Escitalopram Oxalate 20 Mg Tablet 20 Mg PO BID Carvedilol 25 Mg Tablet 25 Mg PO BID Atorvastatin Calcium 80 Mg Tablet 80 Mg PO DAILY LAST FILLED 01-23-2020 #30 Amitriptyline HCl 100 Mg Tablet 100 Mg PO HS Instructions to patient/family Please see electronic discharge instructions given to patient. Diagnosis/Problems Diagnosis/Problems (1) Burst fracture of thoracic vertebra Status: Acute ASLHYN WINTERS DO Sep 09, 2020 06:08
[2020-09-09] MEDS: SUCRALFATE 1 GM (CARAFATE) TAB PO SCH (06:30)
[2020-09-09] MEDS: LEVOTHYROXINE 100 MCG (LEVOTHROID) TAB PO SCH (06:30)
[2020-09-09] MEDS: LEVOTHYROXINE 75 MCG (LEVOTHROID) TABLET PO SCH (06:30)
[2020-09-09] MEDS: inSUlin ASPART (NovoLOG) 1 UNIT/0.01 ML (CHARGE PER UNIT) SC SCH (06:30)
[2020-09-09] MEDS: BETHANECHOL 25 MG (URECHOLINE) TAB PO SCH (06:32)
[2020-09-09] MEDS: CARVEDILOL 12.5 MG (COREG) TABLET PO SCH (07:52)
[2020-09-09] MEDS: CYCLOBENZAPRINE 10 MG (FLEXERIL) TAB PO PRN (07:53)
[2020-09-09] MEDS: amLODIPine 5 MG (NORVASC) TAB PO SCH (07:55)
[2020-09-09] MEDS: ASPIRIN E.C. 325 MG (ECOTRIN) TABLET PO SCH (07:55)
[2020-09-09] MEDS: KCL 10 MEQ TAB (MICRO K) PO SCH (07:55)
[2020-09-09] MEDS: fluCOnazole (DIFLUCAN) 100 MG TAB PO SCH (07:56)
[2020-09-09] MEDS: lisINopril 10 MG (PRINIVIL) TABLET PO SCH (07:56)
[2020-09-09] MEDS: DOCUSATE SODIUM 100 MG (COLACE) CAP PO SCH (07:56)
[2020-09-09] MEDS: polyethylene glycoL POWDER 17 GM (MIRALAX) PACK PO SCH (07:57)
[2020-09-09] MEDS: PANTOPRAZOLE 40 MG (PROTONIX) TAB PO SCH (07:57)
[2020-09-09] MEDS: NICOTINE PATCH REMOVAL TP SCH (07:58)
[2020-09-09] MEDS: NICOTINE 21 MG (NICODERM) PATCH TD SCH (07:58)
[2020-09-09] MEDS: SENNA W/DOCUSATE (SENOKOT S) TABLET PO SCH (07:58)
[2020-09-09 08:00] VITALS: BP 120/64
--- NOTE | 2020-09-09 08:33 | Progress Note - Urology ---
Progress Note-Urology Progress Notes/Assess & Plan Progress/Assessment & Plan PVR NOT DONE YESTERDAY. WE WILL DO TODAY TO DECIDE DOSE OF URECHOLINE Final Diagnosis URINE RETENTION LIANNE VAZQUEZ MD Sep 09, 2020 08:33
[2020-09-09 09:00] VITALS: BP 120/64
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
== END 2020-09-09 09:00 | disposition home health service (06) | DRG 560 ==
PROVIDERS: ADMIT Internal Medicine; ATTEND Internal Medicine
DX: S22.081D Stable burst fracture of T11-T12 vertebra, subsequent encounter for fracture with routine healing (principal); N39.0 Urinary tract infection, site not specified; E87.1 Hypo-osmolality and hyponatremia; I38 Endocarditis, valve unspecified; S62.101D Fracture of unspecified carpal bone, right wrist, subsequent encounter for fracture with routine healing; E11.649 Type 2 diabetes mellitus with hypoglycemia without coma; E11.43 Type 2 diabetes mellitus with diabetic autonomic (poly)neuropathy; I95.1 Orthostatic hypotension; R33.9 Retention of urine, unspecified; B37.3 Candidiasis of vulva and vagina; E03.9 Hypothyroidism, unspecified; F17.210 Nicotine dependence, cigarettes, uncomplicated; I10 Essential (primary) hypertension; E55.9 Vitamin D deficiency, unspecified; E87.8 Other disorders of electrolyte and fluid balance, not elsewhere classified; E83.39 Other disorders of phosphorus metabolism; D72.829 Elevated white blood cell count, unspecified; E78.2 Mixed hyperlipidemia; K21.9 Gastro-esophageal reflux disease without esophagitis; F39 Unspecified mood [affective] disorder; G47.33 Obstructive sleep apnea (adult) (pediatric); I48.91 Unspecified atrial fibrillation; F41.9 Anxiety disorder, unspecified; F31.9 Bipolar disorder, unspecified; D50.9 Iron deficiency anemia, unspecified; Z98.1 Arthrodesis status; Z79.4 Long term (current) use of insulin; Z79.2 Long term (current) use of antibiotics; Z88.6 Allergy status to analgesic agent; Z88.0 Allergy status to penicillin; W19.XXXD Unspecified fall, subsequent encounter
CPT/HCPCS: 36410; 36415; 73030; 73060; 76937; 80053; 81000; 82533; 82962; 83540; 83605; 84145; 84443; 85007; 85025; 85027; 87088

== ENCOUNTER 2020-09-09 18:31 | Emergency (ER) | payer MEDICARE ==
[~2020-09-09] VITALS: Ht 172.7 cm; Wt 70.3 kg
[~2020-09-09 18:31] MED LIST changes: +ACET-2267 PO; +ALPR.25T PO; +AMIT100T2 PO; +AMLO2.5T2 PO; +ASPI-1238 PO; +ASPI325T32 PO; +ATOR80TA76 PO; +BTH10T PO; +CARV25TA PO; +CYCL10TA9 PO; +DOCU-241 PO; +ESCI20TA39 PO; +GABA800T10 PO; +GBPN600T PO; +IBUP-2473 PO; +INSU100I29 SC; +LEVO175C2 PO; +LEVO175T2 PO; +LISI10TA25 PO; +MULT-1136 PO; +NICO1PAT34 TD; +OMEP1CAP10 PO; +OMEP1CAP25 PO; +OMEP40CA27 PO; +OXC5T PO; +OXYC10TA7 PO; +PANT40TA52 PO; +POTA10TA6 PO; +SITA100T12 PO; +SUCR1TAB PO
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
[2020-09-09 18:58] LABS: BASOPHILS # (AUTO) 0.1 10^3/uL (0.0-0.1); BASOPHILS % (AUTO) 1 % (0-10); EOSINOPHILS # (AUTO) 0.4 10^3/uL (0.0-0.3); EOSINOPHILS % (AUTO) 3 % (0-10); HEMATOCRIT 29 % (35-52); HEMOGLOBIN 9.3 g/dL (11.5-16.0); LYMPHOCYTES # (AUTO) 3.5 10^3/uL (1.0-4.0); LYMPHOCYTES % (AUTO) 25 % (12-44); MEAN CORPUSCULAR HEMOGLOBIN 32 pg (25-34); MEAN CORPUSCULAR HGB CONC 32 g/dL (32-36); MEAN CORPUSCULAR VOLUME 101 fL (80-99); MEAN PLATELET VOLUME 9.6 fL (9.0-12.2); MONOCYTES # (AUTO) 0.9 10^3/uL (0.0-1.0); MONOCYTES % (AUTO) 6 % (0-12); NEUTROPHILS # (AUTO) 9.3 10^3/uL (1.8-7.8); NEUTROPHILS % (AUTO) 65 % (42-75); PLATELET COUNT 431 10^3/uL (130-400); WHITE BLOOD COUNT 14.2 10^3/uL (4.3-11.0)
[2020-09-09 19:09] LABS: ALBUMIN 3.4 GM/DL (3.2-4.5); CHLORIDE 97 MMOL/L (98-107); SODIUM 134 MMOL/L (135-145)
[2020-09-09 19:10] LABS: AMYLASE 15 U/L (25-125)
[2020-09-09 19:11] LABS: CALCIUM 8.8 MG/DL (8.5-10.1); PROTHROMBIN TIME PATIENT 13.7 SEC (12.2-14.7)
[2020-09-09 19:12] LABS: GLUCOSE 159 MG/DL (70-105); TOTAL PROTEIN 6.3 GM/DL (6.4-8.2)
[2020-09-09 19:13] LABS: CARBON DIOXIDE 25 MMOL/L (21-32)
[2020-09-09 19:14] LABS: BILIRUBIN,TOTAL 0.6 MG/DL (0.1-1.0)
[2020-09-09 19:15] LABS: ALKALINE PHOSPHATASE 245 U/L (40-136); CREATININE SERUM 0.74 MG/DL (0.60-1.30); GFR ESTIMATED > 60
[2020-09-09 19:17] LABS: BAND NEUTROPHILS 1 %; BUN/CREATININE RATIO 14; EOSINOPHILS % (MANUAL) 1 %; LYMPHOCYTES % (MANUAL) 15 %; MONOCYTES % (MANUAL) 9 %; NEUTROPHILS % (MANUAL) 74 %; RBC MORPH NORMAL
[2020-09-09 19:18] LABS: ALANINE AMINOTRANSFERASE 21 U/L (0-55)
[2020-09-09 19:19] LABS: LIPASE 9 U/L (8-78)
--- NOTE | 2020-09-09 19:40 | Diagnostic Imaging Report ---
EXAMINATION: Chest 1 view. HISTORY: Fall. COMPARISON: 08/21/2020. FINDINGS: The lung volumes are normal. No focal consolidation is seen. No large pleural effusion or pneumothorax is seen. The cardiomediastinal silhouette is normal in size and contour. No acute osseous abnormality is seen. Posterior fusion changes are visualized in the lower thoracic and lumbar spine. IMPRESSION: No acute pleuroparenchymal process. Dictated by: Dictated on workstation # [id number]
--- NOTE | 2020-09-09 19:42 | Diagnostic Imaging Report ---
PROCEDURE: CT head and CT cervical spine without contrast. TECHNIQUE: Multiple contiguous axial images were obtained through the brain and cervical spine without the use of intravenous contrast. Sagittal and coronal reformations through the cervical spine were then performed. Auto Exposure Controls were utilized during the CT exam to meet ALARA standards for radiation dose reduction. INDICATION: Fall. Head and neck pain. Scalp contusion. COMPARISON: None. FINDINGS: CT head: No large acute territorial ischemia, mass or hemorrhage. 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 No midline shift or mass effect. The ventricles, cortical sulci and basilar cisterns are patent and unremarkable. The calvarium is intact. Mild mucosal thickening is seen in the maxillary sinuses. The mastoid air cells are clear. CT cervical spine: No acute fracture or dislocation is seen in the cervical spine. No focal osseous lesions. Vertebral body heights are well maintained. The craniocervical junction is well maintained. Mild degenerative changes are seen in the cervical spine with disc osteophyte complexes and uncovertebral arthropathy. Soft tissues of the neck are unremarkable. IMPRESSION: 1. No hemorrhage or focal intra-axial mass. No CT evidence of large acute territorial ischemia. 2. No acute fracture or dislocation in the cervical spine. Dictated by: Dictated on workstation # [id number]
--- NOTE | 2020-09-09 19:50 | Diagnostic Imaging Report ---
PROCEDURE: CT thoracic and lumbar spine without contrast. TECHNIQUE: Multiple contiguous axial images were obtained through the thoracic and lumbar spine without the use of intravenous contrast. Sagittal and coronal reformations were then performed. All CT scans use one or more of the following dose optimizing techniques: automated exposure control, MA and/or KvP adjustment based on patient size and exam type or iterative reconstruction. INDICATION: Fall. Back pain. COMPARISON: 08/21/2020. FINDINGS: No acute fracture or dislocation is seen in the thoracic and lumbar spine. Prior fusion changes are visualized from the T10-L2 level with bipedicle screws at T10, T11, L1 and L2. Chronic burst fracture seen at the T12 vertebral body. Laminectomy has also been performed at T12. The remaining vertebral body heights are well maintained. No evidence of hardware fracture or loosening. No suspicious focal osseous lesion. Small pleural effusions are visualized with patchy consolidative opacities in the lung bases. The paraspinal soft tissues are unremarkable. IMPRESSION: 1. No acute fracture or dislocation in the thoracic and lumbar spine. 2. Prior burst fracture at T12 with posterior fusion from T10 to L2. Posterior decompression has also been performed at T12. 3. Bilateral pleural effusions with patchy consolidative opacities in the lung bases, concerning for pneumonia. Dictated by: Dictated on workstation # [id number]
--- NOTE | 2020-09-09 19:59 | Diagnostic Imaging Report ---
EXAMINATION: CT chest, abdomen and pelvis with intravenous contrast. TECHNIQUE: Multiple contiguous axial images were obtained through the chest, abdomen and pelvis after the uneventful administration of intravenous contrast. All CT scans use one or more of the following dose optimizing techniques: automated exposure control, MA and/or KvP adjustment based on patient size and exam type or iterative reconstruction. HISTORY: Fall. Chest and abdominal pain. COMPARISON: None available. FINDINGS: CT chest: The heart size is within normal limits. No pericardial effusion is present. The thoracic aorta is unremarkable. There is no mediastinal, hilar or axillary lymphadenopathy. Small pleural effusions are seen, bilaterally, with patchy consolidative opacities in the lung bases. No central endobronchial obstructing lesions. No pneumothorax. Prior posterior fusion is seen from T10 to L2. Burst fracture is present at the T12 level with prior laminectomy changes at T12. CT abdomen/pelvis: The abdominal aorta demonstrates atherosclerotic plaque without evidence of aneurysm or dissection. The major branch vessels are patent. The liver, spleen, pancreas, adrenal glands and kidneys have a normal appearance. The gallbladder is surgically absent. There is no pathologically enlarged mesenteric or retroperitoneal adenopathy. The bowel loops are nondilated. A large amount of stool is seen in the colon. There is no free fluid or free air. No acute fracture is seen in the lumbar spine or pelvis. The urinary bladder is moderately distended. There is no free air, loculated collection or adenopathy in the pelvis. IMPRESSION: 1. Findings concerning for pneumonia in the lung bases with associated small pleural effusions. 2. Large amount of stool in the colon, suggestive of constipation. No evidence of bowel obstruction, free fluid or free air. Dictated by: Dictated on workstation # [id number]
--- NOTE | 2020-09-09 19:59 | Diagnostic Imaging Report ---
CLINICAL HISTORY: Fall. Pelvic and hip pain. COMPARISON: None. TECHNIQUE: Five views of the pelvis and bilateral hips. FINDINGS: There is no acute fracture or dislocation of the pelvis and bilateral hips. Alignment is anatomic. The imaged joint spaces are preserved. IMPRESSION: No acute fracture or dislocation in the pelvis and bilateral hips. Dictated by: Dictated on workstation # [id number]
[2020-09-09] MEDS ORDERED: DOXYCYCLINE 100 MG (VIBRAMYCIN) TABLET PO SCH (20:15)
[2020-09-09] MEDS ORDERED: CEFEPIME INJECTION 2,000 MG in WATER (STERILE) FOR INJECTION 20 ML IV ONE (20:15)
[2020-09-09] MEDS ORDERED: RX-DOXYCYCLINE 100 MG (VIBRAMYCIN) TAB PPK#2 PO STA (20:16)
[2020-09-09 20:46] VITALS: BP 133/71
[2020-09-14] MEDS ORDERED: DOXY100T2 PO (12:28)
[2020-09-14] MEDS ORDERED: AMLO-250 PO (12:28)
== END 2020-09-09 20:46 | disposition home or self-care (01) ==
LOC: EDUNIT# 18:31 → ER 18:33
DX: S09.90XA Unspecified injury of head, initial encounter (principal); S62.101A Fracture of unspecified carpal bone, right wrist, initial encounter for closed fracture; S39.012A Strain of muscle, fascia and tendon of lower back, initial encounter; S70.01XA Contusion of right hip, initial encounter; S70.02XA Contusion of left hip, initial encounter; S20.211A Contusion of right front wall of thorax, initial encounter; R91.8 Other nonspecific abnormal finding of lung field; R10.9 Unspecified abdominal pain; E11.9 Type 2 diabetes mellitus without complications; I48.91 Unspecified atrial fibrillation; F41.9 Anxiety disorder, unspecified; F31.9 Bipolar disorder, unspecified; G47.30 Sleep apnea, unspecified; F17.210 Nicotine dependence, cigarettes, uncomplicated; Z98.890 Other specified postprocedural states; Z99.89 Dependence on other enabling machines and devices; Z98.1 Arthrodesis status; Z79.899 Other long term (current) drug therapy; Z88.0 Allergy status to penicillin; Z88.8 Allergy status to other drugs, medicaments and biological substances; V48.4XXA Person boarding or alighting a car injured in noncollision transport accident, initial encounter
CPT/HCPCS: 36415; 70450; 71045; 71260; 72125; 72128; 72131; 73523; 74177; 80053; 82150; 83690; 85007; 85027; 85610; 85730; 96374

== ENCOUNTER 2020-09-10 17:03 | Observation (INO) | payer MEDICARE ==
[~2020-09-10] VITALS: Ht 172 cm; Wt 73.2 kg
--- NOTE | 2020-09-10 17:37 | ED General ---
General Chief Complaint: Back Problems Stated Complaint: FALLS/WEAKNESS Source of Information: Patient Exam Limitations: No Limitations History of Present Illness Date Seen by Provider: Sep 10, 2020 Time Seen by Provider: 17:00 Initial Comments To ER by private vehicle. Patient has ongoing weakness and falls after she was released from the rehab facility here. About 3 weeks ago she sustained a fall at home with injuries including a right wrist fracture and a burst fracture of T12. I transferred her to [facility] where she underwent fusion of T10 and L2. She then returned here for some rehab. Yesterday during the ER evaluation after a recurrent fall she was noted to have some infiltrates in the lung bases on CT of chest abdomen pelvis. She was given cefepime here and Rx for doxycycline. No new injuries were identified. She was discharged home. She returns today with persistent weakness. Timing/Duration: Constant Severity: Moderate Associated Systoms: Denies Symptoms; No Fever/Chills Allergies and Home Medications Allergies Coded Allergies: Penicillins (Verified Allergy, Unknown, 12/15/15) gabapentin (Verified Allergy, Unknown, 12/15/15) Home Medications ALPRAZolam 0.25 Mg Tab, 0.25 MG PO Q8H PRN for ANXIETY Prescribed by: ASHLYN WINTERS on 09/08/202048 Acetaminophen 500 Mg Tablet, 1,000 MG PO Q8H PRN for PAIN-MILD (1-4), (Reported) Amitriptyline HCl 100 Mg Tablet, 100 MG PO HS, (Reported) Amlodipine Besylate 2.5 Mg Tablet, 2.5 MG PO DAILY Prescribed by: ASHLYN WINTERS on 09/08/202047 Aspirin 325 Mg Tablet.dr, 325 MG PO DAILY Prescribed by: ASHLYN WINTERS on 09/08/202047 Atorvastatin Calcium 80 Mg Tablet, 80 MG PO DAILY, (Reported) LAST FILLED 01-23-2020 #30 Bethanechol Chloride 10 Mg Tablet, 25 MG PO ACHS Prescribed by: ASHLYN WINTERS on 09/08/202047 Carvedilol 25 Mg Tablet, 25 MG PO BID, (Reported) Cyclobenzaprine HCl 10 Mg Tablet, 10 MG PO TID PRN for MUSCLE SPASMS Prescribed by: ASHLYN WINTERS on 09/08/202047 Docusate Sodium 100 Mg Capsule, 1-2 MG PO BID PRN for CONSTIPATION-1ST LINE, (Reported) Escitalopram Oxalate 20 Mg Tablet, 20 MG PO BID, (Reported) Gabapentin 600 Mg Tablet, 600 MG PO TID PRN for NERVE PAIN Prescribed by: ASHLYN WINTERS on 09/08/202047 Insulin Detemir 100 Unit/1 Ml Insuln.pen, 10 UNITS SC BID Prescribed by: ASHLYN WINTERS on 09/08/202047 Levothyroxine Sodium 175 Mcg Tablet, 175 MCG PO DAILY Prescribed by: ASHLYN WINTERS on 09/08/202047 Lisinopril 10 Mg Tablet, 10 MG PO DAILY Prescribed by: ASHLYN WINTERS on 09/08/202047 Multivitamin 1 Each Tablet, 1 EACH PO DAILY, (Reported) Nicotine 1 Each Patch.td24, 21 MG TD DAILY@0900 Prescribed by: ASHLYN WINTERS on 09/08/202047 Oxycodone Hcl 5 Mg Tab, 10 MG PO Q3HR PRN for PAIN-SEVERE (8-10) Prescribed by: ASHLYN WINTERS on 09/08/202048 Pantoprazole Sodium 40 Mg Tablet.dr, 40 MG PO DAILY Prescribed by: ASHLYN WINTERS on 09/08/202047 Potassium Chloride 10 Meq Tablet.er, 10 MEQ PO DAILY Prescribed by: ASHLYN WINTERS on 09/08/202047 Sucralfate 1 Gm Tablet, 1 GM PO ACHS Prescribed by: ASHLYN WINTERS on 09/08/202047 Patient Home Medication List Home Medication List Reviewed: Yes Review of Systems Review of Systems Constitutional: see HPI, weakness EENTM: see HPI Respiratory: no symptoms reported; No cough Cardiovascular: no symptoms reported Genitourinary: no symptoms reported Musculoskeletal: no symptoms reported Skin: no symptoms reported Psychiatric/Neurological: No Symptoms Reported Hematologic/Lymphatic: No Symptoms Reported Immunological/Allergic: no symptoms reported (Early) Past Oaasicf-Fmepmf-Kgjoyx Hx Patient Social History Drug of Choice: MARIJUANA Type Used: Cigarettes Recent Hopitalizations: No Immunizations Up To Date Tetanus Booster (TDap): Unknown PED Vaccines UTD: Yes Seasonal Allergies Seasonal Allergies: No Past Medical History Surgeries: Yes ( X 2; BACK SURGERY 08/24/20 DUE TO TRAUMA) Section, Gallbladder, Hysterectomy, Orthopedic Respiratory: Yes (SLEEP APNEA, USES C-PAP) Sleep Apnea Currently Using CPAP: Yes Cardiac: Yes (A-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 AORTIC VALVE) Atrial Fibrillation, Irregular Heartbeat, Valvular Heart Disease Neurological: No 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 -08/24 patient had T12-L1 laminectomy and bilateral decompression. T10-T11, T11-T12, T12-L1, L1-L2 posterior lateral fusion using [employer] pedicle screws and local bone graft. Completed by Dr. Johnson. No complications. PT IS SCHEDULED TO HAVE REPAIR OF RIGHT WRIST FRACTURE 09/10/[address] BOCANEGRA AT [facility] Physical Exam Vital Signs Vital Signs - First Documented 09/10/20 17:28 Temp 36.8 Pulse 98 Resp 20 Pulse Ox 95 Capillary Refill : Height, Weight, BMI Height: 5'7.00" Weight: 165lbs. 0.0oz. 74.980821wy; 23.00 BMI Method:Stated General Appearance: No Apparent Distress, WD/WN Eyes: Bilateral Eye Normal Inspection Neck: Full Range of Motion, Normal Inspection Respiratory: No Accessory Muscle Use, No Respiratory Distress, Crackles (Bibasilar) Cardiovascular: Regular Rate, Rhythm, Normal Peripheral Pulses Gastrointestinal: Normal Bowel Sounds, Non Tender, Soft Extremity: Normal Capillary Refill, Normal Inspection, Other (Right wrist is in a splint. She is in a back brace.) Neurologic/Psychiatric: Alert, Oriented x3 Progress/Results/Core Measures Suspected Sepsis SIRS Temperature: Pulse: 98 Respiratory Rate: 20 Blood Pressure 128 /77 Mean: Results/Orders My Orders Orders - LANCE ELIAS APRN Chest 1 View, Ap/Pa Only (09/10/20 17:30) Vital Signs/I&O 09/10/20 17:28 Temp 36.8 Pulse 98 Resp 20 Pulse Ox 95 Capillary Refill : Departure Impression Primary Impression: General weakness Additional Impressions: Recent T12 burst fracture Atelectasis of both lungs Disposition: ADMITTED INPATIENT Condition: Stable Departure-Patient Inst. Referrals: [facility] (PCP) Primary Care Physician ROMA FONTANA (Family) Primary Care Physician LANCE ELIAS APRN Sep 10, 2020 17:37
[2020-09-10 17:56] LABS: BASOPHILS # (AUTO) 0.1 10^3/uL (0.0-0.1); BASOPHILS % (AUTO) 1 % (0-10); EOSINOPHILS # (AUTO) 0.2 10^3/uL (0.0-0.3); EOSINOPHILS % (AUTO) 2 % (0-10); HEMATOCRIT 32 % (35-52); HEMOGLOBIN 10.1 g/dL (11.5-16.0); LYMPHOCYTES # (AUTO) 2.6 10^3/uL (1.0-4.0); LYMPHOCYTES % (AUTO) 25 % (12-44); MEAN CORPUSCULAR HEMOGLOBIN 32 pg (25-34); MEAN CORPUSCULAR HGB CONC 32 g/dL (32-36); MEAN CORPUSCULAR VOLUME 101 fL (80-99); MEAN PLATELET VOLUME 9.8 fL (9.0-12.2); MONOCYTES # (AUTO) 0.7 10^3/uL (0.0-1.0); MONOCYTES % (AUTO) 6 % (0-12); NEUTROPHILS # (AUTO) 6.9 10^3/uL (1.8-7.8); NEUTROPHILS % (AUTO) 66 % (42-75); PLATELET COUNT 419 10^3/uL (130-400); WHITE BLOOD COUNT 10.5 10^3/uL (4.3-11.0)
[2020-09-10 18:06] LABS: ALBUMIN 3.6 GM/DL (3.2-4.5); CHLORIDE 97 MMOL/L (98-107); POTASSIUM 3.7 MMOL/L (3.6-5.0); SODIUM 134 MMOL/L (135-145)
[2020-09-10 18:08] LABS: GLUCOSE 158 MG/DL (70-105); TOTAL PROTEIN 6.7 GM/DL (6.4-8.2)
[2020-09-10 18:09] LABS: CARBON DIOXIDE 22 MMOL/L (21-32)
[2020-09-10 18:10] LABS: BILIRUBIN,TOTAL 0.7 MG/DL (0.1-1.0)
--- NOTE | 2020-09-10 18:10 | Diagnostic Imaging Report ---
EXAMINATION: Chest 1 view. HISTORY: Chest pain after fall. COMPARISON: CT chest 09/09/2020. FINDINGS: Heart size and pulmonary vasculature are normal. There are mild interstitial opacities within the lung bases. No significant pleural effusion or pneumothorax. Thoracic and lumbar spinal fusion hardware is present. The osseous structures are otherwise intact. IMPRESSION: Mild bibasilar interstitial opacities compatible with pneumonia seen on prior CT of the chest on 09/09/2020. Dictated by: Dictated on workstation # [id number]
[2020-09-10 18:12] LABS: ALKALINE PHOSPHATASE 253 U/L (40-136); CREATININE SERUM 0.72 MG/DL (0.60-1.30); GFR ESTIMATED > 60
[2020-09-10 18:13] LABS: BUN/CREATININE RATIO 11
[2020-09-10 18:15] LABS: ALANINE AMINOTRANSFERASE 21 U/L (0-55); MAGNESIUM 1.6 MG/DL (1.6-2.4)
[2020-09-10 18:35] LABS: FREE T4 (FREE THYROXINE) 1.04 NG/DL (0.70-1.48)
[2020-09-10] MEDS ORDERED: fentaNYL INJ 100 MCG/2 ML AMP IV PRN (20:00)
[2020-09-10] MEDS ORDERED: CATHETER FLUSH 10 ML SYR IV PRN (20:00)
[2020-09-10] MEDS ORDERED: DOCUSATE SODIUM 100 MG (COLACE) CAP PO PRN (20:30)
[2020-09-10] MEDS ORDERED: BISACODYL 10 MG SUPP (DULCOLAX) PR PRN (20:30)
[2020-09-10] MEDS ORDERED: LACTULOSE SYRUP 10GM/15ML (ENULOSE) 30ML UDC PO PRN (20:30)
[2020-09-10] MEDS ORDERED: MELATONIN 3 MG TABLET PO PRN (20:30)
[2020-09-10] MEDS ORDERED: ALPRAZolam 0.25 MG (XANAX) TAB PO PRN (20:30)
[2020-09-10] MEDS ORDERED: FLEET ENEMA ADULT 1 EA BTL PR PRN (20:30)
[2020-09-10] MEDS ORDERED: ACETAMINOPHEN 325 MG TABLET PO PRN (20:30)
[2020-09-10] MEDS ORDERED: diphenhydrAMINE 25 MG TAB (BENADRYL) PO PRN (20:30)
[2020-09-10] MEDS ORDERED: CALCIUM CARBONATE 500 MG (TUMS) TAB.CHEW PO PRN (20:30)
[2020-09-10] MEDS ORDERED: guaiFENesin/CODEINE (ROBITUSSIN AC) 10ML UDC PO PRN (20:30)
[2020-09-10] MEDS ORDERED: LOPERAMIDE 2 MG (IMODIUM) TABLET PO PRN (20:30)
[2020-09-10] MEDS: inSUlin ASPART (NovoLOG) 1 UNIT/0.01 ML (CHARGE PER UNIT) SC SCH (22:04)
[2020-09-10] MEDS: SUCRALFATE 1 GM (CARAFATE) TAB PO SCH (22:04)
[2020-09-10] MEDS: ENOXAPARIN 40 MG/0.4 ML (LOVENOX) SYR SC SCH (22:15)
[2020-09-10] MEDS: AMITRIPTYLINE 50 MG (ELAVIL) TAB PO SCH (22:15)
[2020-09-10] MEDS: SENNA W/DOCUSATE (SENOKOT S) TABLET PO SCH (22:15)
[2020-09-10] MEDS: CEFEPIME 2,000 MG/SWFI 20 ML IV PUSH IV SCH ×2 (22:15)
[2020-09-10] MEDS: BETHANECHOL 25 MG (URECHOLINE) TAB PO SCH (22:16)
[2020-09-10] MEDS: CATHETER FLUSH 10 ML SYR IV SCH (22:16)
[2020-09-10] MEDS: polyethylene glycoL POWDER 17 GM (MIRALAX) PACK PO SCH (22:16)
[2020-09-10] MEDS: DOXYCYCLINE 100 MG (VIBRAMYCIN) TABLET PO SCH (22:16)
[2020-09-10] MEDS: MICONAZOLE NITRATE 2% CRM 30 GM TP SCH (22:25)
[2020-09-10 23:26] VITALS: BP 165/76
[2020-09-11 04:20] VITALS: BP 155/82
[2020-09-11 06:04] LABS: BASOPHILS # (AUTO) 0.1 10^3/uL (0.0-0.1); BASOPHILS % (AUTO) 1 % (0-10); EOSINOPHILS # (AUTO) 0.3 10^3/uL (0.0-0.3); EOSINOPHILS % (AUTO) 3 % (0-10); HEMATOCRIT 30 % (35-52); HEMOGLOBIN 9.9 g/dL (11.5-16.0); LYMPHOCYTES # (AUTO) 2.5 10^3/uL (1.0-4.0); LYMPHOCYTES % (AUTO) 27 % (12-44); MEAN CORPUSCULAR HEMOGLOBIN 33 pg (25-34); MEAN CORPUSCULAR HGB CONC 33 g/dL (32-36); MEAN CORPUSCULAR VOLUME 100 fL (80-99); MEAN PLATELET VOLUME 9.7 fL (9.0-12.2); MONOCYTES # (AUTO) 0.8 10^3/uL (0.0-1.0); MONOCYTES % (AUTO) 9 % (0-12); NEUTROPHILS # (AUTO) 5.4 10^3/uL (1.8-7.8); NEUTROPHILS % (AUTO) 60 % (42-75); PLATELET COUNT 415 10^3/uL (130-400)
[2020-09-11 06:13] LABS: ALBUMIN 3.2 GM/DL (3.2-4.5); CHLORIDE 99 MMOL/L (98-107); POTASSIUM 3.3 MMOL/L (3.6-5.0); SODIUM 134 MMOL/L (135-145)
[2020-09-11 06:15] LABS: CALCIUM 8.9 MG/DL (8.5-10.1)
[2020-09-11 06:16] LABS: GLUCOSE 182 MG/DL (70-105)
[2020-09-11 06:17] LABS: CARBON DIOXIDE 25 MMOL/L (21-32)
[2020-09-11 06:18] LABS: BILIRUBIN,TOTAL 0.5 MG/DL (0.1-1.0)
[2020-09-11 06:19] LABS: ALKALINE PHOSPHATASE 220 U/L (40-136); CREATININE SERUM 0.66 MG/DL (0.60-1.30); GFR ESTIMATED > 60
[2020-09-11 06:20] LABS: BUN/CREATININE RATIO 9
[2020-09-11 06:22] LABS: ALANINE AMINOTRANSFERASE 16 U/L (0-55)
[2020-09-11] MEDS: CATHETER FLUSH 10 ML SYR IV SCH ×3 (06:24→20:56)
[2020-09-11] MEDS: LEVOTHYROXINE 75 MCG (LEVOTHROID) TABLET PO SCH (06:38)
[2020-09-11] MEDS: LEVOTHYROXINE 100 MCG (LEVOTHROID) TAB PO SCH (06:38)
[2020-09-11] MEDS: SUCRALFATE 1 GM (CARAFATE) TAB PO SCH ×4 (06:38→20:57)
[2020-09-11] MEDS: BETHANECHOL 25 MG (URECHOLINE) TAB PO SCH ×4 (06:38→20:56)
[2020-09-11] MEDS: inSUlin ASPART (NovoLOG) 1 UNIT/0.01 ML (CHARGE PER UNIT) SC SCH ×4 (06:38→20:55)
[2020-09-11] MEDS ORDERED: GABAPENTIN 600 MG (NEURONTIN) TAB PO PRN (07:42)
[2020-09-11 08:00] VITALS: BP 120/75
[2020-09-11] MEDS: ASPIRIN E.C. 325 MG (ECOTRIN) TABLET PO SCH (09:00)
[2020-09-11] MEDS: fluCOnazole (DIFLUCAN) 100 MG TAB PO SCH (09:00)
[2020-09-11] MEDS: DOXYCYCLINE 100 MG (VIBRAMYCIN) TABLET PO SCH ×2 (09:00→20:56)
[2020-09-11] MEDS: PANTOPRAZOLE 40 MG (PROTONIX) TAB PO SCH (09:01)
[2020-09-11] MEDS: amLODIPine 5 MG (NORVASC) TAB PO SCH (09:01)
[2020-09-11] MEDS: lisINopril 10 MG (PRINIVIL) TABLET PO SCH (09:01)
[2020-09-11] MEDS: KCL 10 MEQ TAB (MICRO K) PO SCH ×3 (09:01→16:51)
[2020-09-11] MEDS: CEFEPIME 2,000 MG/SWFI 20 ML IV PUSH IV SCH ×4 (09:02→20:56)
[2020-09-11] MEDS: NICOTINE 21 MG (NICODERM) PATCH TD SCH (09:04)
[2020-09-11] MEDS: SCOPOLAMINE 1.5 MG (TRANSDERM-SCOP) PATCH TD SCH (09:04)
[2020-09-11] MEDS: PATCH REMOVAL TP SCH (09:04)
[2020-09-11] MEDS: polyethylene glycoL POWDER 17 GM (MIRALAX) PACK PO SCH ×2 (09:05→20:57)
[2020-09-11] MEDS: MICONAZOLE NITRATE 2% CRM 30 GM TP SCH ×2 (09:05→20:57)
[2020-09-11] MEDS: SENNA W/DOCUSATE (SENOKOT S) TABLET PO SCH ×2 (09:05→20:57)
--- NOTE | 2020-09-11 10:29 | Physical Therapy Evaluation ---
PT Evaluation-General Medical Diagnosis Admission Date Sep 10, 2020 at 18:23 Medical Diagnosis: weakness Onset Date: Sep 10, 2020 Therapy Diagnosis Therapy Diagnosis: debility Height/Weight Height (Feet): 5 Height (Inches): 7.00 Weight (Pounds): 165 Weight (Ounces): 0.0 Precautions Precautions/Isolations: Fall Prevention, Standard Precautions Referral Physician: Zane Reason for Referral: Evaluation/Treatment Medical History Pertinent Medical History: Atrial Fib, DM, Neuropathy, Renal Insufficiency, Smoking Additional Medical History recent ARU stay for rehab with dismissal to home with family and home health per patient report Current History ER secondary to multiple falls at home (s/p fusion T10-T12 due to burst fracture) Reviewed History: Yes Social History Home: Single Level Current Living Status: Alone Entry Into Home: Stairs With Railing PT Steps Into Home: 3 Prior Prior Level of Function SCALE: Activities may be completed with or without assistive devices. 9-Zabxtetjcq-mfavogh completes the activity by him/herself with no assistance from a helper. 5-Set-up or Clean-up Assistance-helper sets up or cleans up; patient completes activity. [place] assists only prior to or following the activity. 4-Supervision or Touching Assistance-helper provides verbal cues and/or touching/steadying and/or contact guard assistance as patient completes activity. Assistance may be provided throughout the activity or intermittently. 3-Partial/Moderate Assistance-helper does LESS THAN HALF the effort. [place] lifts, holds or supports trunk or limbs, but provides less than half the effort. 2-Substantial/Maximal Assistance-helper does MORE THAN HALF the effort. [place] lifts or holds trunk or limbs and provides more than half the effort. 3-Lrliggknm-bdgpeu does ALL the effort. Patient does none of the effort to complete the activity. Or, the assistance of 2 or more helpers is required for the patient to complete the activity. If activity was not attempted, code reason: 7-Patient Refused. 9-Not Applicable-not attempted and the patient did not perform the activity before the current illness, exacerbation or injury. 10-Not Attempted due to Environmental Limitations-(lack of equipment, weather restraints, etc.). 88-Not Attempted due to Medical Conditions or Safety Concerns. Bed Mobility: 6 Transfers (B,C,W/C): 6 Gait: 6 Stairs: 6 Indoor Mobility (Ambulation): Independent Stairs: Independent Prior Devices Use: Walker (right platform FWW) PT Evaluation-Current Subjective Patient states, "My house is small and my furniture is too low and I can't get up from a low chair. I don't have a toilet raiser but my daughter in law went and bought one. I'm more comfortable here. the floors are level and smooth and it's easier to walk. I have old carpet and throw rugs." Patient agrees to PT. Pain Numeric Pain Scale: 0-No Pain Location: No Pain Reported Objective Patient Orientation: Normal For Age ROM/Strength ROM Lower Extremities bilateral LE WFL Strength Lower Extremities 3+/5 grossly bilateral LE all planes Integumentary/Posture Integumentary refer to nursing notes Bowel Incontinence: No Bladder Incontinence: No Posture WFL Neuromuscular (Tone, Coordination, Reflexes) grossly intact Sensory Vision: Functional Hearing: Functional Sensation Right Lower Extremit: Impaired Sensation Left Lower Extremity: Impaired Sensation Lower Extremities chronic neuropathy Transfers Roll Left to Right (QC): 6 Sit to Lying (QC): 6 Lying to Sitting/Side of Bed(Q: 6 Sit to Stand (QC): 4 Chair/Mfe-gj-Ruiln Xfer(QC): 4 Toilet Transfer (QC): 2 (low transfer) patient does demonstrate squating to wipe after toileting Gait Does the Patient Walk?: Yes Mode of Locomotion: Walk Anticipated Mode of Locomotion: Walk Walk 10 feet (QC): 6 Walk 50 ft with 2 Turns(QC): 6 Walk 150 ft (QC): 6 Walking 10ft/uneven surface-QC: 6 Distance: >600' Gait Assistive Device: Walker Platform (right) Wheelchair Training Does the Pt Use a Wheelchair?: No Stairs #of Steps: 4 1 Step (curb) (QC): 4 4 Steps (QC): 4 12 Steps (QC): 9 Balance Sitting Static: Normal Sitting Dynamic: Normal Standing Static: Normal Standing Dynamic: Normal Picking up an Object (QC): 6 Treatment Patient donns TLSO and socks independently Assessment/Needs 60 y.o. female, will be seen short term by skilled PT to address functional strength and mobility. Patient was to have right wrist repair 09/10/20, however, was admitted to hospital due to failed return to home after ARU stay. Rehab Potential: Fair PT Residential Goals Residential Goals PT Residential Goals Time Frame: September 19, 2020 Roll Left & Right (QC): 6 Sit to Lying (QC): 6 Lying-Sitting on Side/Bed(QC): 6 Sit to Stand (QC): 6 Chair/Dgy-ez-Tofgo Xfer(QC): 6 Toilet Transfer (QC): 6 (elevated seat) Car Transfer (QC): 6 Does the Patient Walk: Yes Walk 10 feet (QC): 6 Walk 50ft with 2 Turns (QC): 6 Walk 150 ft (QC): 6 Walking 10ft on Uneven Surface: 6 1 Step (curb) (QC): 4 4 Steps (QC): 4 12 Steps (QC): 9 PT Plan Problem List Problem List: Functional Strength Treatment/Plan Treatment Plan: Continue Plan of Care Treatment Plan: Education, Functional Activity Babatunde, Functional Strength, Gait, Safety, Therapeutic Exercise, Transfers Treatment Duration: September 19, 2020 Frequency: 6 times per week Estimated Hrs Per Day: .5 hour per day Patient and/or Family Agrees t: Yes Time/GCodes Time In: 921 Time Out: 945 Total Billed Treatment Time: 24 Total Billed Treatment 1 visit EVModC 10 min FA 14 min ADRIEL MERCADO PT Sep 11, 2020 10:29
[2020-09-11 12:00] VITALS: BP 125/75
--- NOTE | 2020-09-11 12:14 | History & Physical-Hospitalist ---
DANIELLA ALMENDAREZ, MED STUDENT 09/11/20 1214: History of Present Illness HPI/Chief Complaint Shannan Ruiz is a 60 y/o F w/ PMH of ANALISA, a-fib, and recent T10-L2 spinal fusion secondary to burst T12 disc due to a fall. She is presenting with increased weakness and falls. The day she left from rehab she had a fall and has had another fell since then. Due to the falls, she has noticed that she is becoming increasingly weaker. She now has difficulty getting up without assistance and cannot go to the bathroom on her own. She denies any sensations of warmth, pal pitations, heart racing, vertigo, seizures, or hearing loss. She does endorse tinnitus in her right ear and does occasionally get dizzy when she stands up. Exam Limitations: no limitations Date Seen 09/11/20 Attending Physician Coco Winters DO [facility] Referring Physician Date of Admission Sep 10, 2020 at 18:23 Home Medications & Allergies Home Medications Reviewed patient Home Medication Reconciliation performed by pharmacy medication reconciliations endoscope technician and/or nursing. Patients Allergies have been reviewed. Allergies Allergies Coded Allergies Penicillins (Verified Allergy, Unknown, 12/15/15) gabapentin (Verified Allergy, Unknown, 12/15/15) Patient Social History Tobacco Use?: No Smoking Status: Former Smoker Use of E-Cig and/or Vaping dev: Yes Substance use?: No Alcohol Use?: No Pt stated abuse/neglect: No Immunizations Up To Date Influenza Vaccine Up-to-Date: No; Not Current Tetanus Booster (TDap): More Than 5 Years Hepatitis A: No Hepatitis B: No Current Status status: No status: No Do you have an Advance Directi: No Communicates: Verbally Primary Language: Romanian Is interpretation needed?: No Sensory deficits: Vision impairment Implanted or Applied Medical D: None Family Medical History Family Hx: PAST SURGICAL HISTORY: PT FELL ON 08/20/20 AND HAD T 12 BURST FRACTURE, AND RIGHT WRIST FRACTURE. -08/24 patient had T12-L1 laminectomy and bilateral decompression. T10-T11, T11-T12, T12-L1, L1-L2 posterior lateral fusion using [employer] pedicle screws and local bone graft. Completed by Dr. Johnson. No complications. PT IS SCHEDULED TO HAVE REPAIR OF RIGHT WRIST FRACTURE 09/10/[address] BOCANEGRA AT [facility] Review of Systems Constitutional: weakness EENTM: other (tinnitus) Respiratory: No no symptoms reported, No see HPI, No cough, No dyspnea on e xertion, No hemoptysis, No orthopnea, No phlegm, No short of breath, No stridor, No wheezing, No other Cardiovascular: No no symptoms reported, No see HPI, No chest pain, No edema, No Hx of Intervention, No palpitations, No syncope, No vascular heart diseas, No other Gastrointestinal: No RUQ, No LUQ, No RLQ, No LLQ, No no symptoms reported, No see HPI, No abdominal pain, No constipation, No diarrhea, No dysphagia, No hematemesis, No heartburn, No jaundice, No loss of appetite, No melena, No nausea, No vomiting, No other Genitourinary: No no symptoms reported, No see HPI, No decreased output, No discharge, No dysuria, No frequency, No hematuria, No hesitancy, No incontinence, No nocturia, No pain, No other Musculoskeletal: No no symptoms reported, No see HPI, No back pain, No gout, No joint pain, No joint swelling, No muscle pain, No muscle stiffness, No muscle cramps, No muscle twitching, No muscle weakness, No neck pain, No other Skin: No no symptoms reported, No see HPI, No change in color, No change in hair/nails, No dryness, No hx of skin cancer, No lesions, No lumps, No pruritus, No rash, No other Psychiatric/Neurological: Denies No Symptoms Reported, Denies See HPI, Denies Anxiety, Denies Depressed, Denies Emotional Problems, Denies Headache, Denies Numbness, Denies Paresthesia, Denies Pre-Existing Deficit, Denies Seizure, Denies Tingling, Denies Tremors, Denies Weakness, Denies Other Physical Exam Physical Exam Vital Signs Vital Signs - First Documented 09/10/20 09/10/20 09/10/20 17:28 17:31 19:20 Temp 36.8 Pulse 98 Resp 20 B/P (MAP) 128/77 (94) Pulse Ox 95 O2 Delivery Room Air Capillary Refill : Less Than 3 Seconds Height, Weight, BMI Height: 5'7.00" Weight: 165lbs. 0.0oz. 74.945938fx; 24.74 BMI Method:Stated General Appearance: No Apparent Distress, WD/WN Eyes: Bilateral Eye Normal Inspection, Bilateral Eye EOMI Neck: Full Range of Motion, Normal Inspection Respiratory: Chest Non Tender, Lungs Clear, Normal Breath Sounds, No Accessory Muscle Use, No Respiratory Distress Cardiovascular: Regular Rate, Rhythm, No Edema, No Gallop, No JVD, No Murmur, Normal Peripheral Pulses Gastrointestinal: Normal Bowel Sounds, No Organomegaly, No Pulsatile Mass, Non Tender, Soft Rectal: Deferred Back: Normal Inspection, No CVA Tenderness Extremity: Normal Capillary Refill, Normal Inspection, Normal Range of Motion, Non Tender, No Calf Tenderness, No Pedal Edema Neurologic/Psychiatric: Alert, Oriented x3, No Motor/Sensory Deficits, Normal Mood/Affect, scalp treatment specialist II-XII Norm as Tested Skin: Normal Color, Warm/Dry Results Results/Procedures Labs Laboratory Tests 09/10/20 17:50 09/11/20 05:55 Patient resulted labs reviewed. Imaging: Reviewed Imaging Report Assessment/Plan Admission Diagnosis Weakness Admission Status: Inpatient Order (span 2 midnights) Assessment and Plan Shannan Ruiz is a 60 y/o F w/ PMH of ANALISA, a-fib, and recent T10-L2 spinal fusion secondary to burst T12 disc due to a fall. #Falls #Weakness - No focal neurologic deficits on exam - No concerning features on history Plan: > No need for imaging at this time > Will likely need rehab > PT/OT #Hypothyroidism Plan: >continue DANCER OR CHOREOGRAPHER meds #A-fib Plan: > Continue DANCER OR CHOREOGRAPHER meds #DM Plan: > Continue DANCER OR CHOREOGRAPHER meds #HTN - BP 120/75 Plan: > Continue DANCER OR CHOREOGRAPHER meds Dispo: Inpatient rehab evaluation w/ possible transfer COCO WINTERS DO 09/12/20 0657: History of Present Illness HPI/Chief Complaint CC: Weakness with PNA HPI: This is a 60yoWF clinic patient of [facility] who was just DC from IRF after a 2 week stay after T12 burst fracture and right wrist fracture suffered in a fall who arrived home and after 2 steps she fell down on the ground. Patient was seen in ER that night and found to have bilateral infiltrates without sepsis so placed on Doxy and then she reported she was too weak to stay at home so she returned to the ER and was placed on Cefepime and Doxy and admitted for observation and rehab eval. Source: patient Time Seen by a Provider: 11:00 Patient Social History Marrital Status: single Employed/Student: unemployed Smoking Status: Current Everyday Smoker Substance use?: No Alcohol Use?: No Past Medical History DM HTN Palpitations HLP OAB Anemia CRI Family Medical History Family Hx: DM Review of Systems Constitutional: see HPI, weakness Physical Exam Physical Exam General Appearance: No Apparent Distress, Chronically ill, Thin Respiratory: Lungs Clear, Normal Breath Sounds Cardiovascular: Regular Rate, Rhythm Neurologic/Psychiatric: Alert, Oriented x3, Motor Weakness Assessment/Plan Admission Diagnosis Assessment: Weakness can't remain at home PNA DM HTN HLP CRI Plan: PNA treatment Home meds Admission Status: Observation Diagnosis/Problems Diagnosis/Problems (1) PNA (pneumonia) (2) General weakness Status: Acute (3) Burst fracture of T12 vertebra (4) Closed fracture of distal end of right radius Supervisory-Addendum Brief Verification & Attestation Participated in pt care: history, MDM, physical Personally performed: exam, history, MDM, supervision of care Care discussed with: Medical Student Procedures: n/a Results interpretation: Verified all documentation Verification and Attestation of Medical Student E/M Service A medical student performed and documented this service in my presence. I reviewed and verified all information documented by the medical student and made modifications to such information, when appropriate. I personally performed the physical exam and medical decision making. Coco Winters, Sep 12, 2020,06:57 DANIELLA ALMENDAREZ, MED STUDENT Sep 11, 2020 12:14 COCO WINTERS DO Sep 12, 2020 06:57
[2020-09-11] MEDS: ONDANSETRON 4 MG (ZOFRAN) ORAL DISSOLVE TAB PO PRN (13:21)
[2020-09-11] MEDS ORDERED: AMLO2.5T4 PO (14:58)
[2020-09-11] MEDS ORDERED: POTA10TA PO (14:58)
[2020-09-11] MEDS ORDERED: SUCR1TAB PO (14:58)
[2020-09-11] MEDS ORDERED: OXYC5TAB PO (14:58)
[2020-09-11] MEDS ORDERED: LISI10TA25 PO (14:58)
[2020-09-11] MEDS ORDERED: CYCL10TA9 PO (14:58)
[2020-09-11] MEDS ORDERED: ALPR0.254 PO (14:58)
[2020-09-11] MEDS ORDERED: BTH10T PO (14:58)
[2020-09-11] MEDS ORDERED: LEVO175T5 PO (14:58)
[2020-09-11] MEDS ORDERED: PROM25TA14 PO (14:58)
[2020-09-11] MEDS ORDERED: ASPI325T32 PO (14:58)
[2020-09-11] MEDS ORDERED: PANT40TA52 PO (14:58)
--- NOTE | 2020-09-11 15:05 | Occupational Therapy Eval ---
OT Evaluation-General/PLF Medical Diagnosis Admission Date Sep 10, 2020 at 18:23 Medical Diagnosis: weakness Onset Date: Sep 10, 2020 Therapy Diagnosis Therapy Diagnosis: weakness Height/Weight Height (Feet): 5 Height (Inches): 7.00 Weight (Pounds): 165 Weight (Ounces): 0.0 Precautions Precautions/Isolations: Fall Prevention, Standard Precautions Comments Back brace when OOB, R wrist brace Referral Physician: Zane Referral Reason: Evaluation/Treatment Medical History Pertinent Medical History: Atrial Fib, DM, Neuropathy, Renal Insufficiency, Smoking Additional Medical History hypovitaminosis D, hypochloremic hyponatremia, hypophosphatemia, leukocytosis, HTN, mixed HLD, hypothyroidism, T2DM, GERD, mood disorder, afib, valvular heart disease, anxiety/depression, bipolar Current History Pt had recent ARU stay (R wrist fx and T12 burst fracture) with discharge home 09/09/20 with family and home health. Pt had multiple falls at home, returning to ED. Pt was scheduled to have surgery 09/10/20 on R wrist but did not due to going to ED. Reviewed History: Yes Social History Home: Single Level Current Living Status: Alone Entry Into Home: Stairs With Railing Steps Into Home: 3 ADL-Prior Level of Function SCALE: Activities may be completed with or without assistive devices. 0-Dnwzkzecij-ipyobqs completes the activity by him/herself with no assistance from a helper. 5-Set-up or Clean-up Assistance-helper sets up or cleans up; patient completes activity. [place] assists only prior to or following the activity. 4-Supervision or Touching Assistance-helper provides verbal cues and/or touching /steadying and/or contact guard assistance as patient completes activity. Assistance may be provided throughout the activity or intermittently. 3-Partial/Moderate Assistance-helper does LESS THAN HALF the effort. [place] lifts, holds or supports trunk or limbs, but provides less than half the effort. 2-Substantial/Maximal Assistance-helper does MORE THAN HALF the effort. [place] lifts or holds trunk or limbs and provides more than half the effort. 0-Cixkvwxsn-movzvt does ALL the effort. Patient does none of the effort to complete the activity. Or, the assistance of 2 or more helpers is required for the patient to complete the activity. If activity was not attempted, code reason: 7-Patient Refused. 9-Not Applicable-not attempted and the patient did not perform the activity before the current illness, exacerbation or injury. 10-Not Attempted due to Environmental Limitations-(lack of equipment, weather restraints, etc.). 88-Not Attempted due to Medical Conditions or Safety Concerns. ADL PLOF Comments Prior to T12 burst fx and R wrist surgery, pt was independent with all I/ADLs and functional mobility, no AD/AE Self Care: Independent Functional Cognition: Independent DME/Equipment: Tub/Shower DME/Equipment Comments R platform walker, toilet riser, OT Current Status Subjective Pt laying in bed, states sore all over from recent falls, but did not verbalize pain rating. Pt indicates she is unsure why she fell at home, but did not feel comfortable at home. All surfaces except her bed are low surfaces and she had difficulty getting up from, she feels like her house is too small, and she was unable to get up off of toilet herself. Mental Status/Objective Patient Orientation: Person, Place, Time, Situation Current Glasses/Contacts: Yes Hearing Aids: No Dentures/Partials: No Hand Dominance: Right Upper Extremity ROM WFL Upper Extremity Coordination decreased due to pain and brace on R wrist. Upper Extremity Sensation WFL Upper Extremity Strength grossly 3+/5 ADL-Treatment Eating (QC): 5 (Per pt report, assist required to cut food and open containers.) Oral Hygiene (QC): 5 (Based on clincial reasoning, pt would require set up assist) Upper Body Dressing (QC): 5 (Pt indicates she is able to don/doff back brace with set up assist) On/Off Footwear (QC): 4 (SBA, pt able to don/doff bilateral gripper socks.) Other Treatments Pt laying in bed, provided OT with information regarding her return to the hospital. She indicates she had difficulty getting up from low surfaces (all surfaces in house except bed), including difficulty getting off of toilet. Her DIL was able to assist her off of the toilet, and has obtained a toilet riser to assist pt. Pt reports falling at home multiple times, but is unsure why she fell. She feels like she say the leaves blowing across the lawn and she fell with them, she denies having back spasms at time of fall. Pt declines OOB activities on this date, as she is tired and sore, she reports she would just like to rest at this time. OT educated pt on OT POC while she is admitted with focus on increasing safety and independence with ADLs and functional mobility, she verbalizes understanding. Post tx, pt laying in bed, call light in reach and all needs met. Education OT Patient Education: Correct positioning, Modified ADL techniques, Progress toward Goal/Update tx plan, Purpose of tx/functional activities, Rehab process Teaching Recipient: Patient Teaching Methods: Discussion Response to Teaching: Verbalize Understanding OT Correction Goals Correction Goals Time Frame: Sep 18, 2020 Eating (QC): 6 Oral Hygiene (QC): 6 Toileting Hygiene (QC): 6 Shower/Bathe Self (QC): 4 Upper Body Dressing (QC): 5 Lower Body Dressing (QC): 5 On/Off Footwear (QC): 6 Additional Goals: 1-Demonstrate ADL Tasks, 2-Verbalize Understanding, 3-Impr oveStrength/Babatunde 1=Demonstrate adherence to instructed precautions during ADL tasks. 2=Patient will verbalize/demonstrate understanding of assistive devices/modifications for ADL. 3=Patient will improve strength/tolerance for activity to enable patient to perform ADL's. OT Education/Plan Problem List/Assessment Assessment: Decreased Activ Tolerance, Decreased UE Strength, Impaired I ADL's, Impaired Self-Care Skills Pt would benefit from short term skilled OT services in order to increase safety and independence with ADLs and fucntional mobility, as well as increase BUE strength and activity tolerance to maximize LOF for safe return home. Discharge Recommendations Plan/Recommendations: Continue POC Treatment Plan/Plan of Care Patient would benefit from OT for education, treatment and training to promote independence in ADL's, mobility, safety and/or upper extremity function for ADL's. Plan of Care: ADL Retraining, Functional Mobility, UE Funct Exercise/Act Treatment Duration: Sep 18, 2020 Frequency: 5 times per week Estimated Hrs Per Day: .25 hour per day Rehab Potential: Fair Time/GCodes Start Time: 14:45 Stop Time: 14:57 Total Time Billed (hr/min): 12 Billed Treatment Time 1, YUNIEL ALAN OT Sep 11, 2020 15:05
[2020-09-11] MEDS ORDERED: GABA800T10 PO (15:09)
[2020-09-11 15:45] VITALS: BP 142/68
[2020-09-11] MEDS: CYCLOBENZAPRINE 10 MG (FLEXERIL) TAB PO PRN (17:41)
[2020-09-11 20:10] VITALS: BP 132/72
[2020-09-11] MEDS: ENOXAPARIN 40 MG/0.4 ML (LOVENOX) SYR SC SCH (20:56)
[2020-09-11] MEDS: AMITRIPTYLINE 50 MG (ELAVIL) TAB PO SCH (20:56)
[2020-09-12] VITALS: BP 122/73
[2020-09-12 03:18] VITALS: BP 117/68
[2020-09-12] MEDS: SUCRALFATE 1 GM (CARAFATE) TAB PO SCH ×4 (06:04→21:03)
[2020-09-12] MEDS: CATHETER FLUSH 10 ML SYR IV SCH ×3 (06:04→21:04)
[2020-09-12] MEDS: LEVOTHYROXINE 100 MCG (LEVOTHROID) TAB PO SCH (06:04)
[2020-09-12] MEDS: LEVOTHYROXINE 75 MCG (LEVOTHROID) TABLET PO SCH (06:04)
[2020-09-12] MEDS: BETHANECHOL 25 MG (URECHOLINE) TAB PO SCH ×4 (06:04→21:03)
[2020-09-12 06:20] LABS: BASOPHILS # (AUTO) 0.1 10^3/uL (0.0-0.1); BASOPHILS % (AUTO) 1 % (0-10); EOSINOPHILS # (AUTO) 0.3 10^3/uL (0.0-0.3); EOSINOPHILS % (AUTO) 4 % (0-10); HEMATOCRIT 34 % (35-52); HEMOGLOBIN 10.6 g/dL (11.5-16.0); LYMPHOCYTES # (AUTO) 3.7 10^3/uL (1.0-4.0); LYMPHOCYTES % (AUTO) 44 % (12-44); MEAN CORPUSCULAR HEMOGLOBIN 32 pg (25-34); MEAN CORPUSCULAR HGB CONC 32 g/dL (32-36); MEAN CORPUSCULAR VOLUME 103 fL (80-99); MEAN PLATELET VOLUME 9.6 fL (9.0-12.2); MONOCYTES # (AUTO) 0.7 10^3/uL (0.0-1.0); MONOCYTES % (AUTO) 9 % (0-12); NEUTROPHILS # (AUTO) 3.6 10^3/uL (1.8-7.8); NEUTROPHILS % (AUTO) 42 % (42-75); PLATELET COUNT 408 10^3/uL (130-400); WHITE BLOOD COUNT 8.6 10^3/uL (4.3-11.0)
[2020-09-12 06:47] LABS: ALANINE AMINOTRANSFERASE 16 U/L (0-55); ALBUMIN 3.6 GM/DL (3.2-4.5); ALKALINE PHOSPHATASE 223 U/L (40-136); BILIRUBIN,TOTAL 0.4 MG/DL (0.1-1.0); BUN/CREATININE RATIO 11; CALCIUM 9.3 MG/DL (8.5-10.1); CARBON DIOXIDE 25 MMOL/L (21-32); CHLORIDE 102 MMOL/L (98-107); CREATININE SERUM 0.72 MG/DL (0.60-1.30); GFR ESTIMATED > 60; GLUCOSE 133 MG/DL (70-105); POTASSIUM 4.2 MMOL/L (3.6-5.0); SODIUM 138 MMOL/L (135-145); TOTAL PROTEIN 6.7 GM/DL (6.4-8.2)
[2020-09-12] MEDS: inSUlin ASPART (NovoLOG) 1 UNIT/0.01 ML (CHARGE PER UNIT) SC SCH ×4 (06:49→20:01)
[2020-09-12 08:00] VITALS: BP 107/66
[2020-09-12] MEDS: PANTOPRAZOLE 40 MG (PROTONIX) TAB PO SCH (10:14)
[2020-09-12] MEDS: DOXYCYCLINE 100 MG (VIBRAMYCIN) TABLET PO SCH ×2 (10:14→21:03)
[2020-09-12] MEDS: ASPIRIN E.C. 325 MG (ECOTRIN) TABLET PO SCH (10:14)
[2020-09-12] MEDS: KCL 10 MEQ TAB (MICRO K) PO SCH ×3 (10:14→18:55)
[2020-09-12] MEDS: NICOTINE 21 MG (NICODERM) PATCH TD SCH (10:14)
[2020-09-12] MEDS: fluCOnazole (DIFLUCAN) 100 MG TAB PO SCH (10:15)
[2020-09-12] MEDS: PATCH REMOVAL TP SCH (10:16)
[2020-09-12] MEDS: CYCLOBENZAPRINE 10 MG (FLEXERIL) TAB PO PRN ×2 (10:17→23:18)
[2020-09-12] MEDS: CEFEPIME 2,000 MG/SWFI 20 ML IV PUSH IV SCH ×4 (10:24→21:02)
[2020-09-12] MEDS: polyethylene glycoL POWDER 17 GM (MIRALAX) PACK PO SCH ×2 (10:24→21:07)
[2020-09-12] MEDS: MICONAZOLE NITRATE 2% CRM 30 GM TP SCH ×2 (10:34→21:08)
[2020-09-12] MEDS: SENNA W/DOCUSATE (SENOKOT S) TABLET PO SCH ×2 (10:34→21:08)
--- NOTE | 2020-09-12 10:54 | Physical Therapy Daily Note ---
PT Daily Note-Current Subjective Pt. in bed, states she did not sleep well and would like to return to bed following a walk. Reports she is still having trouble getting up from a low surface. Mental Status Patient Orientation: Person, Place, Time, Situation Transfers SCALE: Activities may be completed with or without assistive devices. 6-Khiihjvpxf-rbdenuk completes the activity by him/herself with no assistance from a helper. 5-Set-up or Clean-up Assistance-helper sets up or cleans up; patient completes activity. [place] assists only prior to or following the activity. 4-Supervision or Touching Assistance-helper provides verbal cues and/or touching/steadying and/or contact guard assistance as patient completes activity. Assistance may be provided throughout the activity or intermittently. 3-Partial/Moderate Assistance-helper does LESS THAN HALF the effort. [place] lifts, holds or supports trunk or limbs, but provides less than half the effort. 2-Substantial/Maximal Assistance-helper does MORE THAN HALF the effort. [place] l ifts or holds trunk or limbs and provides more than half the effort. 3-Bjnfiugbs-dlwhgy does ALL the effort. Patient does none of the effort to complete the activity. Or, the assistance of 2 or more helpers is required for the patient to complete the activity. If activity was not attempted, code reason: 7-Patient Refused. 9-Not Applicable-not attempted and the patient did not perform the activity before the current illness, exacerbation or injury. 10-Not Attempted due to Environmental Limitations-(lack of equipment, weather restraints, etc.). 88-Not Attempted due to Medical Conditions or Safety Concerns. Roll Left & Right (QC): 6 Sit to Lying (QC): 6 Lying to Sitting/Side of Bed(Q: 6 Sit to Stand (QC): 6 Toilet Transfer (QC): 4 Gait Training Does the Patient Walk?: Yes Distance: 400 ft Walk 150 ft (QC): 4 Gait Persons Needed: 1 Gait Assistive Device: Walker Platform SBA only with ambulation Treatments gait training, toileting Assessment Current Status: Good Progress Pt. is steady with ambulation using platform walker but continues to need min A with rising from toilet. Pt. returned to bed post session with call light and all needs met. PT Alf Goals Grinder Chipper Goals PT Grinder Chipper Goals Time Frame: September 19, 2020 Roll Left & Right (QC): 6 Sit to Lying (QC): 6 Lying-Sitting on Side/Bed(QC): 6 Sit to Stand (QC): 6 Chair/Eaa-jq-Ptiwi Xfer(QC): 6 Toilet Transfer (QC): 6 (elevated seat) Car Transfer (QC): 6 Does the Patient Walk: Yes Walk 10 feet (QC): 6 Walk 50ft with 2 Turns (QC): 6 Walk 150 ft (QC): 6 Walking 10ft on Uneven Surface: 6 1 Step (curb) (QC): 4 4 Steps (QC): 4 12 Steps (QC): 9 PT Plan Treatment/Plan Treatment Plan: Continue Plan of Care Treatment Plan: Education, Functional Activity Babatunde, Functional Strength, Gait, Safety, Therapeutic Exercise, Transfers Treatment Duration: September 19, 2020 Frequency: 6 times per week Estimated Hrs Per Day: .5 hour per day Patient and/or Family Agrees t: Yes Time/GCodes Time In: 0841 Time Out: 0900 Total Billed Treatment Time: 19 Total Billed Treatment 1, GT 15' (FA 4') PIERRE SALGADO PT Sep 12, 2020 10:53
[2020-09-12] MEDS: amLODIPine 5 MG (NORVASC) TAB PO SCH (11:35)
[2020-09-12] MEDS: lisINopril 10 MG (PRINIVIL) TABLET PO SCH (11:35)
[2020-09-12 12:04] VITALS: BP 129/79
--- NOTE | 2020-09-12 13:00 | Progress Note - Hospitalist ---
Subjective HPI/CC On Admission Date Seen by Provider: Sep 12, 2020 Time Seen by Provider: 12:00 CC: Weakness with PNA HPI: This is a 60yoWF clinic patient of [facility] who was just DC from [facility] after a 2 week stay after T12 burst fracture and right wrist fracture suffered in a fall who arrived home and after 2 steps she fell down on the ground. Patient was seen in ER that night and found to have bilateral infiltrates without sepsis so placed on Doxy and then she reported she was too weak to stay at home so she returned to the ER and was placed on Cefepime and Doxy and admitted for observation and rehab eval. Subjective/Events-last exam Patient wants to go to a halfway No help at home from brother A lot of social issues Pain controlled Abx for PNA tolerated Review of Systems General: Fatigue, Malaise Focused Exam Lactate Level 09/10/20 17:50: Lactic Acid Level 1.05 Objective Exam Vital Signs Vital Signs Date Time Temp Pulse Resp B/P (MAP) Pulse Ox O2 Delivery O2 Flow Rate FiO2 09/13/20 04:27 36.6 69 20 108/65 (79) 94 Room Air Capillary Refill : Less Than 3 Seconds General Appearance: No Apparent Distress, WD/WN, Chronically ill Respiratory: Lungs Clear, Normal Breath Sounds Cardiovascular: Regular Rate, Rhythm Neurologic/Psychiatric: Alert, Oriented x3, Depressed Affect Results/Procedures Lab Laboratory Tests 09/13/20 06:15 Patient resulted labs reviewed. Imaging: Reviewed Imaging Report Assessment/Plan Assessment and Plan Assess & Plan/Chief Complaint Assessment: Multiple falls PNA DM T12 burst fracture s/p repair Right wrist fracture s/p urinary retention Plan: Supportive care Monitor closely Diagnosis/Problems Diagnosis/Problems (1) PNA (pneumonia) (2) General weakness Status: Acute (3) Burst fracture of T12 vertebra (4) Closed fracture of distal end of right radius ASHLYN WINTERS DO Sep 12, 2020 13:00
[2020-09-12 15:44] VITALS: BP 131/77
[2020-09-12 19:08] VITALS: BP 137/84
[2020-09-12] MEDS: ONDANSETRON 4 MG (ZOFRAN) ORAL DISSOLVE TAB PO PRN (20:01)
[2020-09-12] MEDS: AMITRIPTYLINE 50 MG (ELAVIL) TAB PO SCH (21:02)
[2020-09-12] MEDS: ENOXAPARIN 40 MG/0.4 ML (LOVENOX) SYR SC SCH (21:03)
[2020-09-13 00:02] VITALS: BP 122/58
[2020-09-13 04:27] VITALS: BP 108/65
[2020-09-13] MEDS: inSUlin ASPART (NovoLOG) 1 UNIT/0.01 ML (CHARGE PER UNIT) SC SCH ×4 (06:06→20:53)
[2020-09-13] MEDS: BETHANECHOL 25 MG (URECHOLINE) TAB PO SCH ×4 (06:07→20:52)
[2020-09-13] MEDS: SUCRALFATE 1 GM (CARAFATE) TAB PO SCH ×4 (06:07→20:52)
[2020-09-13] MEDS: CATHETER FLUSH 10 ML SYR IV SCH ×3 (06:07→21:40)
[2020-09-13] MEDS: LEVOTHYROXINE 75 MCG (LEVOTHROID) TABLET PO SCH (06:07)
[2020-09-13] MEDS: LEVOTHYROXINE 100 MCG (LEVOTHROID) TAB PO SCH (06:07)
[2020-09-13 06:27] LABS: BASOPHILS # (AUTO) 0.1 10^3/uL (0.0-0.1); BASOPHILS % (AUTO) 1 % (0-10); EOSINOPHILS # (AUTO) 0.3 10^3/uL (0.0-0.3); EOSINOPHILS % (AUTO) 4 % (0-10); HEMATOCRIT 32 % (35-52); HEMOGLOBIN 10.3 g/dL (11.5-16.0); LYMPHOCYTES # (AUTO) 3.4 10^3/uL (1.0-4.0); LYMPHOCYTES % (AUTO) 40 % (12-44); MEAN CORPUSCULAR HEMOGLOBIN 33 pg (25-34); MEAN CORPUSCULAR HGB CONC 32 g/dL (32-36); MEAN CORPUSCULAR VOLUME 101 fL (80-99); MEAN PLATELET VOLUME 9.6 fL (9.0-12.2); MONOCYTES # (AUTO) 0.7 10^3/uL (0.0-1.0); MONOCYTES % (AUTO) 8 % (0-12); NEUTROPHILS # (AUTO) 4.1 10^3/uL (1.8-7.8); NEUTROPHILS % (AUTO) 47 % (42-75); PLATELET COUNT 399 10^3/uL (130-400); WHITE BLOOD COUNT 8.6 10^3/uL (4.3-11.0)
[2020-09-13 06:51] LABS: ALANINE AMINOTRANSFERASE 18 U/L (0-55); ALBUMIN 3.6 GM/DL (3.2-4.5); ALKALINE PHOSPHATASE 211 U/L (40-136); BILIRUBIN,TOTAL 0.4 MG/DL (0.1-1.0); BUN/CREATININE RATIO 13; CALCIUM 9.6 MG/DL (8.5-10.1); CARBON DIOXIDE 29 MMOL/L (21-32); CHLORIDE 100 MMOL/L (98-107); GFR ESTIMATED > 60; GLUCOSE 127 MG/DL (70-105); POTASSIUM 4.1 MMOL/L (3.6-5.0); SODIUM 136 MMOL/L (135-145); TOTAL PROTEIN 6.7 GM/DL (6.4-8.2)
--- NOTE | 2020-09-13 06:58 | Progress Note - Hospitalist ---
Subjective HPI/CC On Admission Date Seen by Provider: Sep 13, 2020 Time Seen by Provider: 11:00 CC: Weakness with PNA HPI: This is a 60yoWF clinic patient of [facility] who was just DC from [facility] after a 2 week stay after T12 burst fracture and right wrist fracture suffered in a fall who arrived home and after 2 steps she fell down on the ground. Patient was seen in ER that night and found to have bilateral infiltrates without sepsis so placed on Doxy and then she reported she was too weak to stay at home so she returned to the ER and was placed on Cefepime and Doxy and admitted for observation and rehab eval. Subjective/Events-last exam Overall she is doing well Tolerating abx well BM+ Moving well Needs NH and she agrees Review of Systems General: Fatigue, Malaise Neurological: Weakness Focused Exam Lactate Level Objective Exam Vital Signs Vital Signs Date Time Temp Pulse Resp B/P (MAP) Pulse Ox O2 Delivery O2 Flow Rate FiO2 09/13/20 15:47 37.1 81 18 139/74 (95) 98 Room Air Capillary Refill : Less Than 3 Seconds General Appearance: No Apparent Distress, WD/WN, Chronically ill Respiratory: Lungs Clear Cardiovascular: Regular Rate, Rhythm Neurologic/Psychiatric: Alert, Oriented x3 Results/Procedures Lab Laboratory Tests 09/13/20 06:15 Patient resulted labs reviewed. Imaging: Reviewed Imaging Report Assessment/Plan Assessment and Plan Assess & Plan/Chief Complaint Assessment: Multiple falls PNA DM T12 burst fracture s/p repair Right wrist fracture s/p urinary retention Plan: Supportive care Monitor closely 09/13/20: [facility] at [place] Diagnosis/Problems Diagnosis/Problems (1) PNA (pneumonia) (2) General weakness Status: Acute (3) Burst fracture of T12 vertebra (4) Closed fracture of distal end of right radius ASHLYN WINTERS DO Sep 13, 2020 06:58
[2020-09-13 08:00] VITALS: BP 121/68
[2020-09-13] MEDS: CEFEPIME 2,000 MG/SWFI 20 ML IV PUSH IV SCH ×4 (08:53→20:53)
[2020-09-13] MEDS: SENNA W/DOCUSATE (SENOKOT S) TABLET PO SCH ×2 (08:53→20:53)
[2020-09-13] MEDS: CYCLOBENZAPRINE 10 MG (FLEXERIL) TAB PO PRN (08:53)
[2020-09-13] MEDS: PANTOPRAZOLE 40 MG (PROTONIX) TAB PO SCH (08:53)
[2020-09-13] MEDS: amLODIPine 5 MG (NORVASC) TAB PO SCH (08:54)
[2020-09-13] MEDS: KCL 10 MEQ TAB (MICRO K) PO SCH ×3 (08:54→17:05)
[2020-09-13] MEDS: fluCOnazole (DIFLUCAN) 100 MG TAB PO SCH (08:54)
[2020-09-13] MEDS: PATCH REMOVAL TP SCH (08:54)
[2020-09-13] MEDS: ASPIRIN E.C. 325 MG (ECOTRIN) TABLET PO SCH (08:54)
[2020-09-13] MEDS: DOXYCYCLINE 100 MG (VIBRAMYCIN) TABLET PO SCH ×2 (08:54→20:52)
[2020-09-13] MEDS: NICOTINE 21 MG (NICODERM) PATCH TD SCH (08:54)
[2020-09-13] MEDS: polyethylene glycoL POWDER 17 GM (MIRALAX) PACK PO SCH ×2 (08:54→20:51)
[2020-09-13] MEDS: lisINopril 10 MG (PRINIVIL) TABLET PO SCH (08:54)
[2020-09-13] MEDS: MICONAZOLE NITRATE 2% CRM 30 GM TP SCH ×2 (09:00→20:54)
[2020-09-13 15:47] VITALS: BP 139/74
[2020-09-13] MEDS: AMITRIPTYLINE 50 MG (ELAVIL) TAB PO SCH (20:52)
[2020-09-13] MEDS: ENOXAPARIN 40 MG/0.4 ML (LOVENOX) SYR SC SCH (21:49)
[2020-09-14 00:07] VITALS: BP 115/69
[2020-09-14 05:41] LABS: BASOPHILS # (AUTO) 0.1 10^3/uL (0.0-0.1); BASOPHILS % (AUTO) 1 % (0-10); EOSINOPHILS # (AUTO) 0.3 10^3/uL (0.0-0.3); EOSINOPHILS % (AUTO) 4 % (0-10); HEMATOCRIT 32 % (35-52); HEMOGLOBIN 10.5 g/dL (11.5-16.0); LYMPHOCYTES % (AUTO) 42 % (12-44); MEAN CORPUSCULAR HEMOGLOBIN 32 pg (25-34); MEAN CORPUSCULAR HGB CONC 32 g/dL (32-36); MEAN CORPUSCULAR VOLUME 100 fL (80-99); MONOCYTES # (AUTO) 0.6 10^3/uL (0.0-1.0); MONOCYTES % (AUTO) 9 % (0-12); NEUTROPHILS % (AUTO) 43 % (42-75); PLATELET COUNT 352 10^3/uL (130-400)
[2020-09-14] MEDS: CATHETER FLUSH 10 ML SYR IV SCH ×2 (05:54→12:23)
[2020-09-14] MEDS: inSUlin ASPART (NovoLOG) 1 UNIT/0.01 ML (CHARGE PER UNIT) SC SCH ×2 (05:55→12:18)
[2020-09-14 06:00] LABS: ALANINE AMINOTRANSFERASE 16 U/L (0-55); ALBUMIN 3.5 GM/DL (3.2-4.5); ALKALINE PHOSPHATASE 192 U/L (40-136); BILIRUBIN,TOTAL 0.5 MG/DL (0.1-1.0); BUN/CREATININE RATIO 16; CALCIUM 9.6 MG/DL (8.5-10.1); CARBON DIOXIDE 26 MMOL/L (21-32); CHLORIDE 101 MMOL/L (98-107); CREATININE SERUM 0.63 MG/DL (0.60-1.30); GFR ESTIMATED > 60; GLUCOSE 138 MG/DL (70-105); SODIUM 138 MMOL/L (135-145); TOTAL PROTEIN 6.4 GM/DL (6.4-8.2)
[2020-09-14] MEDS: LEVOTHYROXINE 100 MCG (LEVOTHROID) TAB PO SCH (06:04)
[2020-09-14] MEDS: BETHANECHOL 25 MG (URECHOLINE) TAB PO SCH ×2 (06:04→12:18)
[2020-09-14] MEDS: LEVOTHYROXINE 75 MCG (LEVOTHROID) TABLET PO SCH (06:04)
[2020-09-14] MEDS: SUCRALFATE 1 GM (CARAFATE) TAB PO SCH ×2 (06:04→12:18)
[2020-09-14 08:12] VITALS: BP 130/75
[2020-09-14] MEDS ORDERED: SCOPOLAMINE PATCH REMOVAL TP SCH (09:00)
--- NOTE | 2020-09-14 09:40 | Occupational Ther Daily Note ---
OT Current Status-Daily Note Subjective Pt alert, sitting in bathroom. Pt agrees to therapy. No c/o pain. Mental Status/Objective Patient Orientation: Person, Place, Time, Situation ADL-Treatment CGA with supine to EOB and to don back brace, doffed independently. Pt ambulated with SBA using FWW to bathroom. Independent using FWW and grabbars for toilet transfer and to complete hygiene. Pt stood at sink to complete washing hands. Pt ambulated back to room and transferred into bed using bed rails independently. Pt completed own meal set up and uses regular utensils to eat. After session, pt lying in bed to eat breakfast. Call light/phone in reach. All needs met in room. Therapy Code Descriptions/Definitions Functional [place] Measure: 0=Not Assessed/NA 4=Minimal Assistance 1=Total Assistance 5=Supervision or Setup 2=Maximal Assistance 6=Modified [place] 3=Moderate Assistance 7=Complete IndependenceSCALE: Activities may be completed with or without assistive devices. 1-Wuxevyowaf-lzqgwir completes the activity by him/herself with no assistance from a helper. 5-Set-up or Clean-up Assistance-helper sets up or cleans up; patient completes activity. [place] assists only prior to or following the activity. 4-Supervision or Touching Assistance-helper provides verbal cues and/or touching/steadying and/or contact guard assistance as patient completes activity. Assistance may be provided throughout the activity or intermittently. 3-Partial/Moderate Assistance-helper does LESS THAN HALF the effort. [place] lifts, holds or supports trunk or limbs, but provides less than half the effort. 2-Substantial/Maximal Assistance-helper does MORE THAN HALF the effort. [place] lifts or holds trunk or limbs and provides more than half the effort. 8-Yimhhfqxx-wgeuqc does ALL the effort. Patient does none of the effort to comp lete the activity. Or, the assistance of 2 or more helpers is required for the patient to complete the activity. If activity was not attempted, code reason: 7-Patient Refused. 9-Not Applicable-not attempted and the patient did not perform the activity before the current illness, exacerbation or injury. 10-Not Attempted due to Environmental Limitations-(lack of equipment, weather restraints, etc.). 88-Not Attempted due to Medical Conditions or Safety Concerns. Eating (QC): 6 Toileting Hygiene (QC): 6 Toilet Transfer (QC): 4 OT Negative Turner Apprentice Goals Assisted Goals Time Frame: Sep 18, 2020 Eating (QC): 6 Oral Hygiene (QC): 6 Toileting Hygiene (QC): 6 Shower/Bathe Self (QC): 4 Upper Body Dressing (QC): 5 Lower Body Dressing (QC): 5 On/Off Footwear (QC): 6 Additional Goals: 1-Demonstrate ADL Tasks, 2-Verbalize Understanding, 3- ImproveStrength/Babatunde 1=Demonstrate adherence to instructed precautions during ADL tasks. 2=Patient will verbalize/demonstrate understanding of assistive dev ices/modifications for ADL. 3=Patient will improve strength/tolerance for activity to enable patient to perform ADL's. OT Education/Plan Problem List/Assessment Assessment: Decreased UE Strength, Impaired Self-Care Skills Pt would benefit from short term skilled OT services in order to increase safety and independence with ADLs and fucntional mobility, as well as increase BUE strength and activity tolerance to maximize LOF for safe return home. Discharge Recommendations Plan/Recommendations: Continue POC Treatment Plan/Plan of Care Patient would benefit from OT for education, treatment and training to promote independence in ADL's, mobility, safety and/or upper extremity function for ADL's. Plan of Care: ADL Retraining, Functional Mobility, UE Funct Exercise/Act Treatment Duration: Sep 18, 2020 Frequency: 5 times per week Estimated Hrs Per Day: .25 hour per day Rehab Potential: Fair Time/GCodes Start Time: 09:25 Stop Time: 09:35 Total Time Billed (hr/min): 10 Billed Treatment Time 1 visit-ADL 1 (10 min) BISMARK DILLARD Sep 14, 2020 09:39
[2020-09-14] MEDS: PANTOPRAZOLE 40 MG (PROTONIX) TAB PO SCH (09:54)
[2020-09-14] MEDS: SENNA W/DOCUSATE (SENOKOT S) TABLET PO SCH (09:54)
[2020-09-14] MEDS: PATCH REMOVAL TP SCH (09:54)
[2020-09-14] MEDS: lisINopril 10 MG (PRINIVIL) TABLET PO SCH (09:54)
[2020-09-14] MEDS: fluCOnazole (DIFLUCAN) 100 MG TAB PO SCH (09:54)
[2020-09-14] MEDS: DOXYCYCLINE 100 MG (VIBRAMYCIN) TABLET PO SCH (09:54)
[2020-09-14] MEDS: ASPIRIN E.C. 325 MG (ECOTRIN) TABLET PO SCH (09:54)
[2020-09-14] MEDS: amLODIPine 5 MG (NORVASC) TAB PO SCH (09:54)
[2020-09-14] MEDS: KCL 10 MEQ TAB (MICRO K) PO SCH ×2 (09:54→12:22)
[2020-09-14] MEDS: SCOPOLAMINE 1.5 MG (TRANSDERM-SCOP) PATCH TD SCH (09:55)
[2020-09-14] MEDS: CEFEPIME 2,000 MG/SWFI 20 ML IV PUSH IV SCH ×2 (09:55)
[2020-09-14] MEDS: NICOTINE 21 MG (NICODERM) PATCH TD SCH (09:55)
[2020-09-14] MEDS: polyethylene glycoL POWDER 17 GM (MIRALAX) PACK PO SCH (09:55)
[2020-09-14] MEDS: MICONAZOLE NITRATE 2% CRM 30 GM TP SCH (09:56)
--- NOTE | 2020-09-14 11:57 | Physical Therapy Daily Note ---
PT Daily Note-Current Subjective Patient supine in bed pre tx, states she is stressed but does not c/o pain. Appearance Patient supine in bed post tx, with call button within reach and tray table nearby. All needs met. Mental Status Patient Orientation: Person, Place, Time, Normal For Age TLSO Transfers SCALE: Activities may be completed with or without assistive devices. 3-Lywbyvmjuh-bnaizef completes the activity by him/herself with no assistance from a helper. 5-Set-up or Clean-up Assistance-helper sets up or cleans up; patient completes activity. [place] assists only prior to or following the activity. 4-Supervision or Touching Assistance-helper provides verbal cues and/or touching/steadying and/or contact guard assistance as patient completes activity. Assistance may be provided throughout the activity or intermittently. 3-Partial/Moderate Assistance-helper does LESS THAN HALF the effort. [place] lifts, holds or supports trunk or limbs, but provides less than half the effort. 2-Substantial/Maximal Assistance-helper does MORE THAN HALF the effort. [place] lifts or holds trunk or limbs and provides more than half the effort. 5-Bffdolugf-ahxpvn does ALL the effort. Patient does none of the effort to complete the activity. Or, the assistance of 2 or more helpers is required for the patient to complete the activity. If activity was not attempted, code reason: 7-Patient Refused. 9-Not Applicable-not attempted and the patient did not perform the activity before the current illness, exacerbation or injury. 10-Not Attempted due to Environmental Limitations-(lack of equipment, weather restraints, etc.). 88-Not Attempted due to Medical Conditions or Safety Concerns. Roll Left & Right (QC): 6 Sit to Lying (QC): 6 Lying to Sitting/Side of Bed(Q: 6 Sit to Stand (QC): 5 Patient successfully demonstrated log roll and adjusted bed as needed to perform bed mobility. Gait Training Does the Patient Walk?: Yes Distance: 600' Walk 10 feet (QC): 6 Walk 50 ft with 2 Turns(QC): 6 Walk 150 ft (QC): 6 Gait Assistive Device: FWW Patient is steady with gait, good reciprocal gait pattern and fair pacing. Exercises Seated Therapy Exercises: Ankle pumps, Long arc quads, Hip flexion Seated Reps: 20 Treatments LE strengthening, transfers, gait training Assessment Current Status: Good Progress Patient continues to note fear of falling, but demonstrates stability with all transfer, gait, and functional mobility. PT Elementary Special Education Teacher Goals Mcfp Goals PT Mcfp Goals Time Frame: September 19, 2020 Roll Left & Right (QC): 6 Sit to Lying (QC): 6 Lying-Sitting on Side/Bed(QC): 6 Sit to Stand (QC): 6 Chair/Yme-jx-Ehzqc Xfer(QC): 6 Toilet Transfer (QC): 6 (elevated seat) Car Transfer (QC): 6 Does the Patient Walk: Yes Walk 10 feet (QC): 6 Walk 50ft with 2 Turns (QC): 6 Walk 150 ft (QC): 6 Walking 10ft on Uneven Surface: 6 1 Step (curb) (QC): 4 4 Steps (QC): 4 12 Steps (QC): 9 PT Plan Problem List Problem List: Activity Tolerance, Functional Strength, Safety, Balance, Gait, Transfer, Bed Mobility, ROM Treatment/Plan Treatment Plan: Continue Plan of Care Treatment Plan: Education, Functional Activity Babatunde, Functional Strength, Gait, Safety, Therapeutic Exercise, Transfers Treatment Duration: September 19, 2020 Frequency: 6 times per week Estimated Hrs Per Day: .5 hour per day Patient and/or Family Agrees t: Yes Safety Risks/Education Patient Education: Gait Training, Transfer Techniques, Correct Positioning, Safety Issues Teaching Recipient: Patient Teaching Methods: Demonstration, Discussion Response to Teaching: Verbalize Understanding, Return Demonstration Time/GCodes Time In: 1103 Time Out: 1121 Total Billed Treatment Time: 18 Total Billed Treatment 1 visit: GT: 18' BOB FANG PT Sep 14, 2020 11:57
[2020-09-14] MEDS ORDERED: DOXY100T2 PO (12:28)
[2020-09-14] MEDS ORDERED: AMLO-250 PO (12:28)
--- NOTE | 2020-09-14 12:33 | Discharge Summary ---
Discharge Summary Reconcile Patient Problems Problems Reviewed?: No Instructions for Patient Assessment/Instructions Follow up with KEILA Garner at [facility] on September 16 at 12:20 pm. Follow up with Orthopedic Surgery and Neurosurgery as directed. Physician to follow Patient: KEILA Fan/Cathy Sandoval MD Discharge Diet for Home: ADA Diet Hospital Course Date of Admission: Sep 10, 2020 at 18:23 Admission Diagnosis : T12 fracture Wrist fracture Falls Debility Diabetes Hypertension Anxiety Pneumonia Family Physician/Provider: Emile Jane Date of Discharge: 09/14/20 Discharge Diagnosis: T12 fracture Wrist fracture Falls Debility Diabetes Hypertension Anxiety Pneumonia Hospital Course: Pt was readmitted shortly after discharge from inpatient rehab stay related to thoracic spine burst fracture and wrist fracture after a fall at home. She went home and then fell again nearly immediately. She was found to have bilateral lower infiltrates and was treated for pneumonia and seen by PT, retirement was suggested, but she did not want to go to a nursing facility and planned to d/c to her son's home instead of her home this time and have home health services. They were also going to install rails/handles, etc at the home. Labs and Pending Lab Test: Laboratory Tests 09/13/20 15:23: Glucometer 125H 09/13/20 20:03: Glucometer 179H 09/14/20 05:20: White Blood Count 7.0, Red Blood Count 3.25L, Hemoglobin 10.5L, Hematocrit 32L, Mean Corpuscular Volume 100H, Mean Corpuscular Hemoglobin 32, Mean Corpuscular Hemoglobin Concent 32, Red Cell Distribution Width 14.7H, Platelet Count 352, Mean Platelet Volume 10.0, Immature Granulocyte % (Auto) 0, Neutrophils (%) (Auto) 43, Lymphocytes (%) (Auto) 42, Monocytes (%) (Auto) 9, Eosinophils (%) (Auto) 4, Basophils (%) (Auto) 1, Neutrophils # (Auto) 3.0, Lymphocytes # (Auto) 3.0, Monocytes # (Auto) 0.6, Eosinophils # (Auto) 0.3, Basophils # (Auto) 0.1, Immature Granulocyte # (Auto) 0.0, Sodium Level 138, Potassium Level 4.0, Chloride Level 101, Carbon Dioxide Level 26, Anion Gap 11, Blood Urea Nitrogen 10, Creatinine 0.63, Estimat Glomerular Filtration Rate > 60, BUN/Creatinine Ratio 16, Glucose Level 138H, Calcium Level 9.6, Corrected Calcium 10.0, Total Bilirubin 0.5, Aspartate Amino Transf (AST/SGOT) 20, Alanine Aminotransferase (ALT/SGPT) 16, Alkaline Phosphatase 192H, Total Protein 6.4, Albumin 3.5 09/14/20 05:47: Glucometer 148H 09/14/20 11:43: Glucometer 255H Microbiology 09/10/20 Blood Culture - Preliminary, Resulted No growth Home Meds Active Nicoderm Cq (Nicotine) 1 Each Patch.td24 21 Mg TD DAILY@0900 Levemir Flextouch (Insulin Detemir) 100 Unit/1 Ml Insuln.pen 10 Units SC BID 30 Days Reported Gabapentin 800 Mg Tablet 800 Mg PO 1200,1600,2200 Aspirin EC (Aspirin) 325 Mg Tablet.dr 325 Mg PO DAILY Oxycodone HCl 5 Mg Tablet 10 Mg PO EVERY 3 HOURS PRN Promethazine Tablet (Promethazine HCl) 25 Mg Tablet 25 Mg PO Q6H PRN K-Tab ER (Potassium Chloride) 10 Meq Tablet.er 10 Meq PO DAILY Urecholine (Bethanechol Chloride) 10 Mg Tablet 25 Mg PO ACHS TAKES 2 & (10MG) TABS Pantoprazole Sodium 40 Mg Tablet.dr 40 Mg PO DAILY Amlodipine Besylate 2.5 Mg Tablet 2.5 Mg PO DAILY Levothyroxine Sodium 175 Mcg Tablet 175 Mcg PO DAILY Cyclobenzaprine HCl 10 Mg Tablet 10 Mg PO TID PRN ALPRAZolam 0.25 Mg Tablet 0.25 Mg PO Q8H PRN Sucralfate 1 Gm Tablet 1 Gm PO ACHS Lisinopril 10 Mg Tablet 10 Mg PO DAILY Stool Softener (Docusate Sodium) 100 Mg Capsule 1-2 Mg PO BID PRN Multivitamin 1 Each Tablet 1 Each PO DAILY Tylenol Extra Strength (Acetaminophen) 500 Mg Tablet 1,000 Mg PO Q8H PRN Escitalopram Oxalate 20 Mg Tablet 20 Mg PO BID Carvedilol 25 Mg Tablet 25 Mg PO BID Atorvastatin Calcium 80 Mg Tablet 80 Mg PO DAILY LAST FILLED 01-23-2020 #30 Amitriptyline HCl 100 Mg Tablet 100 Mg PO HS Patient Allergies: Coded Allergies: Penicillins (Verified Allergy, Unknown, 12/15/15) gabapentin (Verified Allergy, Unknown, 12/15/15) Height (Feet): 5 Height (Inches): 7.00 Weight (Pounds): 165 Weight (Ounces): 0.0 Home Health Need/Face to Face Date of Face to Face: Sep 14, 2020 Clinical Findings: Generalized weakness and fatigue, Instability, Muscle weakne ss, Unsteady gait I have seen Pt [id number]: Yes Discharged To: Home Diagnosis/Conditions: See discharge diagnoses Patient is Homebound due to: Giselle fall risk due to instabilty Homebound Status Due to the above stated illness, injury or surgical procedure (medical condition or diagnosis) and associated clinical findings, the patient is homebound because of his/her inability to leave home except with aid of a supportive device and/or person AND leaving the home requires a considerable and taxing effort or is medically contraindicated. Pt req the following assistanc: [facility] Nursing Orders Home Health Services Order: Nursing Services, Physical Therapy-Evaluate & Treat Certify Stmt I certify that this patient is under my care and that I, a nurse practitioner or a physician; a fish hatchery assistant working with me, had a face to face encounter that - meets the physician face to face encounter requirements with this patient as dated. Discharge Physical Exam General: Alert, No Acute Distress Lungs: Clear to Auscultation, Normal Air Movement Heart: Regular Rate, No Murmurs Abdomen: Normal Bowel Sounds, Soft Neuro: Normal Speech Psych/Mental Status: Mood CATHY NOEL MD Sep 14, 2020 12:33
== END 2020-09-14 12:22 | disposition home or self-care (01) ==
LOC: EDUNIT# 17:03 → ER 17:04 → UNDOADMOB 18:23 → 4TH 18:23 → UNDODISOB 09-14 14:15
PROVIDERS: ADMIT Internal Medicine; ATTEND Family Medicine
DX: S22.081A Stable burst fracture of T11-T12 vertebra, initial encounter for closed fracture (principal); J98.11 Atelectasis; F41.9 Anxiety disorder, unspecified; R53.81 Other malaise; J18.9 Pneumonia, unspecified organism; E03.9 Hypothyroidism, unspecified; I48.91 Unspecified atrial fibrillation; I12.9 Hypertensive chronic kidney disease with stage 1 through stage 4 chronic kidney disease, or unspecified chronic kidney disease; N18.9 Chronic kidney disease, unspecified; E11.22 Type 2 diabetes mellitus with diabetic chronic kidney disease; D63.1 Anemia in chronic kidney disease; S62.109A Fracture of unspecified carpal bone, unspecified wrist, initial encounter for closed fracture; S52.501A Unspecified fracture of the lower end of right radius, initial encounter for closed fracture; R53.1 Weakness; Z79.82 Long term (current) use of aspirin; Z79.899 Other long term (current) drug therapy; Z88.0 Allergy status to penicillin; Z88.8 Allergy status to other drugs, medicaments and biological substances; Z79.890 Hormone replacement therapy; Z87.891 Personal history of nicotine dependence
CPT/HCPCS: 71045; 80053 ×5; 82962 ×5; 83605; 83735; 84439; 84443; 85025 ×5; 87040; 97116 ×2; 97162; 97166; 97530; 97535; 99284; G0378; 36415

== ENCOUNTER → 2020-10-05 | Outpatient (CLI) | payer MEDICARE ==
[~2020-10-05] MED LIST changes: +ALPR0.254 PO; +AMLO-250 PO; +AMLO2.5T4 PO; +DOXY100T2 PO; +LEVO175T5 PO; +OXYC5TAB PO; +POTA10TA PO; +PROM25TA14 PO
== END ==
LOC: WOUNDCARE 14:20
PROVIDERS: ATTEND Surgery
DX: E11.621 Type 2 diabetes mellitus with foot ulcer (principal); E11.42 Type 2 diabetes mellitus with diabetic polyneuropathy; I70.234 Atherosclerosis of native arteries of right leg with ulceration of heel and midfoot; T65.222A Toxic effect of tobacco cigarettes, intentional self-harm, initial encounter; L97.412 Non-pressure chronic ulcer of right heel and midfoot with fat layer exposed; F17.218 Nicotine dependence, cigarettes, with other nicotine-induced disorders
CPT/HCPCS: 11042; G0463

== ENCOUNTER → 2020-10-12 | Outpatient (CLI) | payer MEDICARE | LOC: WOUNDCARE 14:19 | PROVIDERS: ATTEND Surgery | DX: I96 Gangrene, not elsewhere classified (principal); L97.412 Non-pressure chronic ulcer of right heel and midfoot with fat layer exposed; E11.621 Type 2 diabetes mellitus with foot ulcer; E11.42 Type 2 diabetes mellitus with diabetic polyneuropathy; I70.234 Atherosclerosis of native arteries of right leg with ulceration of heel and midfoot; T65.222A Toxic effect of tobacco cigarettes, intentional self-harm, initial encounter; F17.218 Nicotine dependence, cigarettes, with other nicotine-induced disorders | CPT/HCPCS: 11042; G0463 ==

== ENCOUNTER → 2020-10-12 | Outpatient (CLI) | payer MEDICARE | LOC: LAB 15:40 | PROVIDERS: ATTEND Surgery | DX: E11.621 Type 2 diabetes mellitus with foot ulcer (principal); E11.42 Type 2 diabetes mellitus with diabetic polyneuropathy; L97.412 Non-pressure chronic ulcer of right heel and midfoot with fat layer exposed; I70.234 Atherosclerosis of native arteries of right leg with ulceration of heel and midfoot; T65.222A Toxic effect of tobacco cigarettes, intentional self-harm, initial encounter; F17.218 Nicotine dependence, cigarettes, with other nicotine-induced disorders | CPT/HCPCS: 36415; 83036 ==

== ENCOUNTER 2020-10-26 08:31 | Emergency (ER) | payer MEDICARE ==
[~2020-10-26] VITALS: Ht 172 cm; Wt 63.5 kg
--- NOTE | 2020-10-26 08:53 | ED Hip Pain/Injury ---
General Chief Complaint: Hip/Pelvic Problems Stated Complaint: FELL AT HOME/ PAIN IN LEFT HIP Nursing Triage Note: PT PRESENTS TO ED FOR LT SIDED HIP PAIN. PT STATES THAT SHE WAS PUTTING UP A GLASS LAST NIGHT AROUND 2400, WHEN HER KNEES BUCKLED AND SHE FELL ON HER KNEES. PT DENIES KNEE PAIN, REPORTS ONLY LT HIP PAIN. PT BROUGHT TO ROOM 03 VIA WC. Source: patient Exam Limitations: no limitations History of Present Illness Date Seen by Provider: Oct 26, 2020 Time Seen by Provider: 08:45 Initial Comments Patient is a 60-year-old female who presents to the emergency department today with a chief complaint of low back pain and left flank pain. Patient states that she had a fall last night at around midnight. Patient states that she was getting out of bed to take a dirty class to the kitchen when she felt dizzy and her knees "buckled". Patient states that she was able to get up and continue moving. She complains of significant pain however just above the iliac crest on the left. Initially she stated hip pain however on exam she has no pain over the hip and has good range of motion in the legs. She did not hit her head or have a loss of consciousness. Patient states that she is getting dizzy once a week for the last several months. She denies any nausea, vomiting, diarrhea or urinary complaints. No recent fevers, chills, cough or congestion. She takes oxycodone 2 pills a day for pain. All other review of systems reviewed and negative except as stated above. Timing/Duration: yesterday Severity: moderate Location: other (Low back left hip) Method of Injury: fell Modifying Factors: Improves With Immobilization; Worse With Movement Associated Symptoms: denies symptoms Allergies and Home Medications Allergies Coded Allergies: Penicillins (Verified Allergy, Unknown, 12/15/15) gabapentin (Verified Allergy, Unknown, 12/15/15) Home Medications ALPRAZolam 0.25 Mg Tablet, 0.25 MG PO Q8H PRN for ANXIETY, (Reported) Acetaminophen 500 Mg Tablet, 1,000 MG PO Q8H PRN for PAIN-MILD (1-4), (Reported) Amitriptyline HCl 100 Mg Tablet, 100 MG PO HS, (Reported) Amlodipine Besylate 5 Mg Tablet, 5 MG PO DAILY Prescribed by: GLORY YANG on 09/14/20 1228 Aspirin 325 Mg Tablet.dr, 325 MG PO DAILY, (Reported) Atorvastatin Calcium 80 Mg Tablet, 80 MG PO DAILY, (Reported) LAST FILLED 01-23-2020 #30 Bethanechol Chloride 10 Mg Tablet, 25 MG PO ACHS, (Reported) TAKES 2 & (10MG) TABS Carvedilol 25 Mg Tablet, 25 MG PO BID, (Reported) Cyclobenzaprine HCl 10 Mg Tablet, 10 MG PO TID PRN for MUSCLE SPASMS, (Reported) Docusate Sodium 100 Mg Capsule, 1-2 MG PO BID PRN for CONSTIPATION-1ST LINE, (Reported) Doxycycline Hyclate 100 Mg Tablet, 100 MG PO BID Prescribed by: GLORY YANG on 09/14/20 1228 Escitalopram Oxalate 20 Mg Tablet, 20 MG PO BID, (Reported) Gabapentin 800 Mg Tablet, 800 MG PO 1200,1600,2200, (Reported) Insulin Detemir 100 Unit/1 Ml Insuln.pen, 10 UNITS SC BID Prescribed by: ASHLYN WINTERS on 09/08/202047 Levothyroxine Sodium 175 Mcg Tablet, 175 MCG PO DAILY, (Reported) Lisinopril 10 Mg Tablet, 10 MG PO DAILY, (Reported) Multivitamin 1 Each Tablet, 1 EACH PO DAILY, (Reported) Nicotine 1 Each Patch.td24, 21 MG TD DAILY@0900 Prescribed by: ASHLYN WINTERS on 09/08/202047 Oxycodone HCl 5 Mg Tablet, 10 MG PO EVERY 3 HOURS PRN for PAIN-SEVERE (8-10), (Reported) Pantoprazole Sodium 40 Mg Tablet.dr, 40 MG PO DAILY, (Reported) Potassium Chloride 10 Meq Tablet.er, 10 MEQ PO DAILY, (Reported) Promethazine HCl 25 Mg Tablet, 25 MG PO Q6H PRN for NAUSEA/VOMITING-2ND LINE, (Reported) Sucralfate 1 Gm Tablet, 1 GM PO ACHS, (Reported) Patient Home Medication List Home Medication List Reviewed: Yes Review of Systems Constitutional: see HPI EENTM: no symptoms reported Respiratory: no symptoms reported Cardiovascular: no symptoms reported Gastrointestinal: no symptoms reported Genitourinary: no symptoms reported Musculoskeletal: back pain Skin: no symptoms reported Psychiatric/Neurological: No Symptoms Reported All Other Systems Reviewed Negative Unless Noted: Yes Past Hyiqvkc-Ccylgm-Ugtsac Hx Patient Social History Alcohol Use: Denies Use Drug of Choice: MARIJUANA Smoking Status: Current Everyday Smoker Type Used: Cigarettes Former Smoker, Quit: Aug 20, 2020 Recent Infectious Disease Expo: No Recent Hopitalizations: No Immunizations Up To Date Tetanus Booster (TDap): Unknown PED Vaccines UTD: Yes Seasonal Allergies Seasonal Allergies: No Past Medical History Surgeries: Yes ( X 2; BACK SURGERY 08/24/20 DUE TO TRAUMA) Section, Gallbladder, Hysterectomy, Orthopedic Respiratory: Yes (SLEEP APNEA, USES C-PAP) Sleep Apnea Currently Using CPAP: Yes Cardiac: Yes (A-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 AORTIC VALVE) Atrial Fibrillation, Irregular Heartbeat, Valvular Heart Disease Neurological: No STRESS ANALYST History: Hysterectomy, Menopausal Genitourinary: Yes (HAD ACUTE RENAL FAILURE/INSUFFICIENCY WHEN SHE FELL 08/20/20-NO DIALYSIS) Renal Failure Gastrointestinal: No Musculoskeletal: Yes (FALL 08/20/20-T12 BURST FX AND RIGHT WRIST FX) Endocrine: Yes (TYPE 2 ) Diabetes, Insulin dep HEENT: No Cancer: No Psychosocial: Yes Anxiety, Bipolar, Depression Integumentary: No Blood Disorders: No Family Medical History No Pertinent Family Hx DM Physical Exam Vital Signs Vital Signs - First Documented 10/26/20 08:36 Temp 35.9 Pulse 85 Resp 16 B/P (MAP) 136/82 (100) Pulse Ox 96 O2 Delivery Room Air Capillary Refill : Less Than 3 Seconds Height, Weight, BMI Height: 5'7.00" Weight: 165lbs. 0.0oz. 74.904964lw; 21.00 BMI Method:Stated General Appearance: No Apparent Distress, WD/WN HEENT: PERRL/EOMI Cardiovascular: Regular Rate, Rhythm Respiratory: Normal Breath Sounds, No Accessory Muscle Use, No Respiratory Distress Gastrointestinal: Non Tender, Soft Back: Normal Inspection, No Vertebral Tenderness, Other (Tenderness above the posterior superior iliac crest on the left) Extremity: Normal Inspection, Normal Range of Motion, Non Tender, No Calf Tenderness Neurologic/Psychiatric: Alert, Oriented x3, No Motor/Sensory Deficits, Normal Mood/Affect Skin: Normal Color, Warm/Dry Progress/Results/Core Measures Results/Orders My Orders Orders - CAROLINE CABAN MD Lumbar Spine - 2-3 Views (10/26/20 08:50) Vital Signs/I&O 10/26/20 08:36 Temp 35.9 Pulse 85 Resp 16 B/P (MAP) 136/82 (100) Pulse Ox 96 O2 Delivery Room Air Blood Pressure Mean: 100 Diagnostic Imaging Diagonstic Imaging: Xray Comments [facility], [place] NAME: [facility] REC#: [id number] PT STATUS: REG ER : 1960 PHYSICIAN: CAROLINE CABAN MD ADMIT DATE: 10/26/20/ER Draft Date of Exam:10/26/20 LUMBAR SPINE - 2-3 VIEWS EXAM: LUMBAR SPINE - 2-3 VIEWS INDICATION: Fall. Left-sided back pain. COMPARISON: CT thoracolumbar spine 09/09/2020. FINDINGS: Normal alignment of the lumbar spine. Vertebral body heights are preserved. Mild degenerative endplate changes in the superior endplate of L3 and L4. No acute fractures. Partially visualized posterior instrumentation spanning a stable compression deformity at T12. Visualized hardware components appear intact. No evidence of loosening. Visualized pelvis is intact. Surgical clips in the right upper quadrant. Calcified aorta. Large amount of stool throughout the visualized colon and rectum. IMPRESSION: 1. No acute radiographic findings in the lumbar spine. 2. Partially visualized posterior instrumentation spanning a stable appearing compression deformity at T12. No evidence of hardware failure in the [id number]. 3. Large amount of stool throughout the visualized colon and rectum suggesting constipation. Dictated on workstation # [id number] Dict: 10/26/20906 Trans: 10/26/20 0914 RONALD [id number] Interpreted by: ODALYS COSTELLO MD Electronically signed by: Departure Impression Primary Impression: Contusion of back Qualified Codes: S20.222A - Contusion of left back wall of thorax, initial encounter Disposition: 01 HOME, SELF-CARE Condition: Stable Departure-Patient Inst. Decision time for Depature: 09:33 Referrals: [facility]STE[facility]IE (PCP) Primary Care Physician ROMA FONTANA (Family) Primary Care Physician Patient Instructions: Contusion (DC) Add. Discharge Instructions: Drink plenty of fluids to stay well-hydrated. Take your pain medications as needed up to 3 times daily. Keep in mind that pain medications can make you constipated. Follow-up with your back surgeon as scheduled and your primary care doctor to further evaluate your dizzy spells. Come back to the emergency room for any new, concerning or emergent complaints. Scripts Oxycodone HCl/Acetaminophen (Percocet 5-325 mg Tablet) 1 Each Tablet 1 TAB PO Q6H for PAIN-MODERATE MDD 6 TABS for 2 Days, #8 TAB Prov: CAROLINE CABAN MD 10/26/20 CAROLINE CABAN MD Oct 26, 2020 08:53
--- NOTE | 2020-10-26 09:15 | Diagnostic Imaging Report ---
EXAM: LUMBAR SPINE - 2-3 VIEWS INDICATION: Fall. Left-sided back pain. COMPARISON: CT thoracolumbar spine 09/09/2020. FINDINGS: Normal alignment of the lumbar spine. Vertebral body heights are preserved. Mild degenerative endplate changes in the superior endplate of L3 and L4. No acute fractures. Partially visualized posterior instrumentation spanning a stable compression deformity at T12. Visualized hardware components appear intact. No evidence of loosening. Visualized pelvis is intact. Surgical clips in the right upper quadrant. Calcified aorta. Large amount of stool throughout the visualized colon and rectum. IMPRESSION: 1. No acute radiographic findings in the lumbar spine. 2. Partially visualized posterior instrumentation spanning a stable appearing compression deformity at T12. No evidence of hardware failure in the [id number]. 3. Large amount of stool throughout the visualized colon and rectum suggesting constipation. Dictated by: Dictated on workstation # [id number]
[2020-10-26] MEDS ORDERED: OXYC1TAB87 PO (09:35)
[2020-10-26 10:16] VITALS: BP 110/78
== END 2020-10-26 09:49 | disposition home or self-care (01) ==
LOC: EDUNIT# 08:31 → ER 08:33
DX: S30.0XXA Contusion of lower back and pelvis, initial encounter (principal); F41.9 Anxiety disorder, unspecified; F32.9 Major depressive disorder, single episode, unspecified; E11.9 Type 2 diabetes mellitus without complications; Z88.0 Allergy status to penicillin; Z88.8 Allergy status to other drugs, medicaments and biological substances; F17.210 Nicotine dependence, cigarettes, uncomplicated; Z79.82 Long term (current) use of aspirin; Z79.4 Long term (current) use of insulin; Z79.899 Other long term (current) drug therapy; W06.XXXA Fall from bed, initial encounter
CPT/HCPCS: 72100

== ENCOUNTER 2021-07-15 10:51 | Inpatient (IN) | payer MEDICARE ==
[~2021-07-15] VITALS: Ht 172 cm; Wt 56.6 kg
[~2021-07-15 10:51] MED LIST changes: +CLIN-144 PO; -CLIN300C12 PO; +CYCL10TA25 PO; -CYCL10TA9 PO; -DOCU-241 PO; +DOCU-26 PO; -OMEP40CA27; -OMEP40CA27 PO; +OMEP40CA6; +OMEP40CA6 PO; +OXYC1TAB87 PO; +POTA-160 PO; -POTA10TA6 PO
[2021-07-15] MEDS ORDERED: RT-ALBUTEROL HFA 8.5 GM INHALER IH ONE ×2 (11:11→14:00)
--- NOTE | 2021-07-15 11:13 | ED General ---
General Chief Complaint: Respiratory Problems Stated Complaint: SOA Nursing Triage Note: PT ARRIVES TO ER VIA EMS FROME HOME. PT C/O SOB ONSET THIS AM AT 0500, WORSE OVER THE PAST HOUR. DENIES HX OF COPD. PT WAS 72% ON RA PER FIRE DEPARTMENT, PLACED ON NRB, SAT'S IMPROVED TO 93%, PT THEN SWITCHED TO CPAP EN ROUTE. PT HYPERTENSIVE, HX OF HTN, HAS NOT TAKEN BP MEDICATION THIS AM YET. PT ARRIVES WITH 20 G TO L AC IN PLACE. PT A/0 X 4 UPON ARRIVAL. PT DENIES COVID EXPOSURES, DID NOT RECEIVED A COVID VACCINE. Source of Information: Patient, Old Records Exam Limitations: No Limitations History of Present Illness Date Seen by Provider: Jul 15, 2021 Time Seen by Provider: 10:52 Initial Comments This 61-year-old woman presents to the emergency room via EMS with complaints of abrupt onset of shortness of breath when she woke at 0500 this morning. Shortness of breath has worsened since then. She denies a history of COPD, heart disease, oxygen dependence, or use of inhaled medications. She is a smoker of cigarettes and marijuana. On arrival fire department reported an oxygen saturation of 72% on room air. She improved to 93% on a nonrebreather mask. She arrives on CPAP applied by EMS. She has market hypertension with systolic blood pressures in the 220s per EMS. She has not taken her blood pressure medications yet this morning. She has not received Covid or influenza vaccines. She has no prior history of Covid. She has had a healthcare e ncounters here in the past but has recently been living in [place] and moved back to the area. She has not seen a doctor since returning. Review of chart also notes a history of atrial fibrillation, valvular disease, diabetes, and episodes of renal failure. Allergies and Home Medications Allergies Coded Allergies: Penicillins (Verified Allergy, Unknown, 12/15/15) Patient Home Medication List Home Medication List Reviewed: Yes ALPRAZolam (ALPRAZolam) 0.25 Mg Tablet, 0.25 MG PO Q8H PRN for ANXIETY, (Reported) Entered as Reported by: JENNIFER BOOTHE on 09/11/20 1458 Acetaminophen (Tylenol Extra Strength) 500 Mg Tablet, 1,000 MG PO Q8H PRN for PAIN-MILD (1-4), (Reported) Entered as Reported by: JENNIFER BOOTHE on 09/04/20 1414 Amitriptyline HCl (Amitriptyline HCl) 100 Mg Tablet, 100 MG PO HS, (Reported) Entered as Reported by: JENNIFER BOOTHE on 08/28/20 09 Amlodipine Besylate (Amlodipine Besylate) 5 Mg Tablet, 5 MG PO DAILY Prescribed by: GLORY YANG on 09/14/20 1228 Aspirin (Aspirin EC) 325 Mg Tablet.dr, 325 MG PO DAILY, (Reported) Entered as Reported by: JENNIFER BOOTHE on 09/11/20 145 Atorvastatin Calcium (Atorvastatin Calcium) 80 Mg Tablet, 80 MG PO DAILY, (Reported) Entered as Reported by: JENNIFER BOOTHE on 08/28/20 09 Bethanechol Chloride (Urecholine) 10 Mg Tablet, 25 MG PO ACHS, (Reported) Entered as Reported by: JENNIFER BOOTHE on 09/11/20 145 Carvedilol (Carvedilol) 25 Mg Tablet, 25 MG PO BID, (Reported) Entered as Reported by: JENNIFER BOOTHE on 08/28/20 09 Cyclobenzaprine HCl (Cyclobenzaprine HCl) 10 Mg Tablet, 10 MG PO TID PRN for MUSCLE SPASMS, (Reported) Entered as Reported by: JENNIFER BOOTHE on 09/11/20 145 Docusate Sodium (Stool Softener) 100 Mg Capsule, 1-2 MG PO BID PRN for CONSTIPATION-1ST LINE, (Reported) Entered as Reported by: JENNIFER BOOTHE on 09/04/20 1418 Doxycycline Hyclate (Doxycycline Hyclate) 100 Mg Tablet, 100 MG PO BID Prescribed by: GLORY YANG on 09/14/20 1228 Escitalopram Oxalate (Escitalopram Oxalate) 20 Mg Tablet, 20 MG PO BID, (Reported) Entered as Reported by: JENNIFER BOOTHE on 08/28/20 09 Gabapentin (Gabapentin) 800 Mg Tablet, 800 MG PO 1200,1600,2200, (Reported) Entered as Reported by: JENNIFER BOOTHE on 09/11/20 1509 Insulin Detemir (Levemir Flextouch) 100 Unit/1 Ml Insuln.pen, 10 UNITS SC BID Prescribed by: ASHLYN WINTERS on 4/20/21 2048 Levothyroxine Sodium (Levothyroxine Sodium) 175 Mcg Tablet, 175 MCG PO DAILY, (Reported) Entered as Reported by: JENNIFER BOOTHE on 09/11/20 145 Lisinopril (Lisinopril) 10 Mg Tablet, 10 MG PO DAILY, (Reported) Entered as Reported by: JENNIFER BOOTHE on 09/11/20 145 Multivitamin (Multivitamin) 1 Each Tablet, 1 EACH PO DAILY, (Reported) Entered as Reported by: JENNIFER BOOTHE on 09/04/20 141 Nicotine (Nicoderm Cq) 1 Each Patch.td24, 21 MG TD DAILY@0900 Prescribed by: ASHLYN WINTERS on 09/08/202047 Oxycodone HCl (Oxycodone HCl) 5 Mg Tablet, 10 MG PO EVERY 3 HOURS PRN for PAIN- SEVERE (8-10), (Reported) Entered as Reported by: JENNIFER BOOTHE on 09/11/20 145 Oxycodone HCl/Acetaminophen (Percocet 5-325 mg Tablet) 1 Each Tablet, 1 TAB PO Q6H Prescribed by: CAROLINE CABAN on 10/26/20 0935 Pantoprazole Sodium (Pantoprazole Sodium) 40 Mg Tablet.dr, 40 MG PO DAILY, (Reported) Entered as Reported by: JENNIFER BOOTHE on 09/11/20 145 Potassium Chloride (K-Tab ER) 10 Meq Tablet.er, 10 MEQ PO DAILY, (Reported) Entered as Reported by: JENNIFER BOOTHE on 09/11/20 145 Promethazine HCl (Promethazine Tablet) 25 Mg Tablet, 25 MG PO Q6H PRN for NAUSEA/VOMITING-2ND LINE, (Reported) Entered as Reported by: JENNIFER BOOTHE on 09/11/20 145 Sucralfate (Sucralfate) 1 Gm Tablet, 1 GM PO ACHS, (Reported) Entered as Reported by: JENNIFER BOOTHE on 09/11/20 145 Review of Systems Review of Systems Constitutional: no symptoms reported; No fever EENTM: no symptoms reported Respiratory: see HPI Cardiovascular: see HPI; No chest pain, No edema Gastrointestinal: no symptoms reported Genitourinary: no symptoms reported Musculoskeletal: no symptoms reported Skin: no symptoms reported Psychiatric/Neurological: No Symptoms Reported Hematologic/Lymphatic: No Symptoms Reported Past Bndbbve-Riorvq-Jxbbar Hx Patient Social History Tobacco Use?: Yes Tobacco type used: Cigarettes Smoking Status: Current Everyday Smoker Use of E-Cig and/or Vaping dev: No Substance use?: Yes Substance type: Marijuana Alcohol Use?: No Pt feels they are or have been: No Immunizations Up To Date Tetanus Booster (TDap): Unknown PED Vaccines UTD: Yes Seasonal Allergies Seasonal Allergies: No Past Medical History Surgeries: Yes ( X 2; BACK SURGERY 08/24/20 DUE TO TRAUMA) Section, Gallbladder, Hysterectomy, Orthopedic Respiratory: Yes (SLEEP APNEA, USES C-PAP) Sleep Apnea Currently Using CPAP: Yes Cardiac: Yes (A-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 AORTIC VALVE) Atrial Fibrillation, Irregular Heartbeat, Valvular Heart Disease 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, 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 Genitourinary: Yes (HAD ACUTE RENAL FAILURE/INSUFFICIENCY WHEN SHE FELL 08/20/20-NO DIALYSIS) Renal Failure Gastrointestinal: No Musculoskeletal: Yes (FALL 08/20/20-T12 BURST FX AND RIGHT WRIST FX) Endocrine: Yes (TYPE 2 ) Diabetes, Insulin dep HEENT: No Cancer: No Psychosocial: Yes Anxiety, Bipolar, Depression Integumentary: No Blood Disorders: No Family Medical History No Pertinent Family Hx DM Physical Exam-Suspected Sepsis Physical Exam Vital Signs Vital Signs - First Documented 07/15/21 07/15/21 07/15/21 11:01 11:06 11:17 Temp 35.8 Pulse 112 Resp 28 B/P (MAP) 228/137 (167) Pulse Ox 96 O2 Delivery NIV Bilevel O2 Flow Rate 70.00 FiO2 70 Capillary Refill : Blood Pressure Mean: 167 Height, Weight, BMI Height: 5'7.00" Weight: 165lbs. 0.0oz. 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 as Tested Skin: normal color, warm/dry Focused Exam Lactate Level 07/15/21 11:08: Lactic Acid Level 1.24 Lactic Acid Level Progress/Results/Core Measures Suspected Sepsis SIRS Temperature: Pulse: 112 Respiratory Rate: 28 Laboratory Tests 07/15/21 11:08: White Blood Count 16.0H Blood Pressure 228 /137 Mean: 167 07/15/21 11:08: Lactic Acid Level 1.24 Laboratory Tests 07/15/21 11:08: Creatinine 0.72, INR Comment 0.9, Platelet Count 339, Total Bilirubin 0.8 Results/Orders Lab Results Laboratory Tests Test 07/15/21 10:58 07/15/21 11:05 07/15/21 11:08 07/15/21 11:42 Range/Units Influenza Type A (RT-PCR) Not Detected Not Detecte Influenza Type B (RT-PCR) Not Detected Not Detecte SARS-CoV-2 RNA (RT-PCR) Not Detected Not Detecte Blood Gas Puncture Site R RAD Blood Gas Patient Temperature 35.8 Arterial Blood pH 7.40 7.37-7.43 Arterial Blood Partial Pressure CO2 44 35-45 MMHG Arterial Blood Partial Pressure O2 102 H 79-93 MMHG Arterial Blood HCO3 27 23-27 MMOL/L Arterial Blood Total CO2 28.6 21.0-31.0 MMOL/L Arterial Blood Oxygen Saturation 98 94-100 % Arterial Blood Base Excess 2.6 H -2.5-2.5 MMOL/L Taun Test YES-POS Blood Gas Ventilator Setting NO Blood Gas Inspired Oxygen 70% BIPAP White Blood Count 16.0 H 4.3-11.0 10^3/uL Red Blood Count 4.90 3.80-5.11 10^6/uL Hemoglobin 15.8 11.5-16.0 g/dL Hematocrit 47 35-52 % Mean Corpuscular Volume 96 80-99 fL Mean Corpuscular Hemoglobin 32 25-34 pg Mean Corpuscular Hemoglobin Concent 34 32-36 g/dL Red Cell Distribution Width 11.9 10.0-14.5 % Platelet Count 339 130-400 10^3/uL Mean Platelet Volume 11.8 9.0-12.2 fL Immature Granulocyte % (Auto) 0 % Neutrophils (%) (Auto) 73 42-75 % Lymphocytes (%) (Auto) 19 12-44 % Monocytes (%) (Auto) 5 0-12 % Eosinophils (%) (Auto) 1 0-10 % Basophils (%) (Auto) 1 0-10 % Neutrophils # (Auto) 11.7 H 1.8-7.8 10^3/uL Lymphocytes # (Auto) 3.1 1.0-4.0 10^3/uL Monocytes # (Auto) 0.8 0.0-1.0 10^3/uL Eosinophils # (Auto) 0.2 0.0-0.3 10^3/uL Basophils # (Auto) 0.1 0.0-0.1 10^3/uL Immature Granulocyte # (Auto) 0.1 0.0-0.1 10^3/uL Neutrophils % (Manual) 71 % Lymphocytes % (Manual) 18 % Monocytes % (Manual) 7 % Eosinophils % (Manual) 2 % Basophils % (Manual) 1 % Band Neutrophils 1 % Blood Morphology Comment NORMAL Prothrombin Time 12.7 12.2-14.7 SEC INR Comment 0.9 0.8-1.4 Activated Partial Thromboplast Time 22 L 24-35 SEC D-Dimer 0.95 H 0.00-0.49 UG/ML Sodium Level 136 135-145 MMOL/L Potassium Level 3.9 3.6-5.0 MMOL/L Chloride Level 99 98-107 MMOL/L Carbon Dioxide Level 25 21-32 MMOL/L Anion Gap 12 5-14 MMOL/L Blood Urea Nitrogen 10 7-18 MG/DL Creatinine 0.72 0.60-1.30 MG/DL Estimat Glomerular Filtration Rate 96 BUN/Creatinine Ratio 14 Glucose Level 276 H 70-105 MG/DL Lactic Acid Level 1.24 0.50-2.00 MMOL/L Calcium Level 9.4 8.5-10.1 MG/DL Corrected Calcium 9.4 8.5-10.1 MG/DL Total Bilirubin 0.8 0.1-1.0 MG/DL Aspartate Amino Transf (AST/SGOT) 16 5-34 U/L Alanine Aminotransferase (ALT/SGPT) 11 0-55 U/L Alkaline Phosphatase 101 40-136 U/L Troponin I < 0.028 <0.028 NG/ML C-Reactive Protein High Sensitivity 0.08 0.00-0.50 MG/DL B-Type Natriuretic Peptide 496.6 H <100.0 PG/ML Total Protein 7.1 6.4-8.2 GM/DL Albumin 4.0 3.2-4.5 GM/DL Procalcitonin 0.01 <0.10 NG/ML Urine Color YELLOW Urine Clarity CLEAR Urine pH 7.5 5-9 Urine Specific [place] 1.025 H 1.016-1.022 Urine Protein 2+ H NEGATIVE Urine Glucose (UA) 3+ H NEGATIVE Urine Ketones NEGATIVE NEGATIVE Urine Nitrite NEGATIVE NEGATIVE Urine Bilirubin NEGATIVE NEGATIVE Urine Urobilinogen 0.2 < = 1.0 MG/DL Urine Leukocyte Esterase NEGATIVE NEGATIVE Urine RBC (Auto) NEGATIVE NEGATIVE Urine RBC NONE /HPF Urine WBC NONE /HPF Urine Squamous Epithelial Cells 2-5 /HPF Urine Crystals NONE /LPF Urine Bacteria NEGATIVE /HPF Urine Casts NONE /LPF Urine Mucus NEGATIVE /LPF Urine Culture Indicated NO Test 07/15/21 20:23 Range/Units Glucometer 288 H 70-110 MG/DL My Orders Orders - NISHI BONE MD Covid 19 Inhouse Test (07/15/21 11:01) Influenza A And B By Pcr (07/15/21 11:01) Cbc With Automated Diff (07/15/21 11:01) Comprehensive Metabolic Panel (07/15/21 11:01) Blood Culture (07/15/21 11:01) Sputum Culture (07/15/21 11:01) Urinalysis (07/15/21 11:01) Urine Culture (07/15/21 11:01) Protime With Inr (07/15/21 11:01) Partial Thromboplastin Time (07/15/21 11:01) Chest 1 View, Ap/Pa Only (07/15/21 11:01) Ed Iv/Invasive Line Start (07/15/21 11:01) Ed Iv/Invasive Line Start (07/15/21 11:01) Ekg Tracing (07/15/21 11:01) Troponin I Abhijeet (07/15/21 11:01) Vital Signs Adult Sepsis Patie Q15M (07/15/21 11:01) O2 (07/15/21 11:01) Remove Rings In Anticipation O (07/15/21 11:01) Lactic Acid Analyzer (07/15/21 11:01) Bnp [place] (07/15/21 11:01) Hs C Reactive Protein (07/15/21 11:01) Fibrin Degradation Products (07/15/21 11:01) Procalcitonin (Pct) (07/15/21 11:01) Albuterol Inhaler (Albuterol) (07/15/21 14:00) Methylprednisolone Sod Succ (Solu-Medrol (07/15/21 11:15) Nitroglycerin Ointment (Nitrobid Ointme (07/15/21 11:15) Arterial Blood Gas (07/15/21 11:04) Albuterol Inhaler (Albuterol) (07/15/21 11:11) Manual Differential (07/15/21 11:08) Ct Angio Chest W (07/15/21 12:04) Iohexol Injection (Omnipaque 350 Mg/Ml 1 (07/15/21 12:15) Received Contrast (Hold Metformin- Contr (07/15/21 12:15) Ns (Ivpb) (Sodium Chloride 0.9% Ivpb Bag (07/15/21 12:15) Furosemide Injection (Lasix Injection) (07/15/21 14:15) Potassium Chloride (Tablet) (Klor Con Ta (07/15/21 14:15) Arterial Blood Draw - Obtain (07/15/21 ) Ketorolac Injection (Toradol Injection) (07/15/21 14:45) Lisinopril Tablet (Zestril Tablet) (07/15/21 15:15) Carvedilol Tablet (Coreg Tablet) (07/15/21 15:15) Medications Given in ED Current Medications Medications Dose Ordered Sig/Doug Route Start Time Stop Time Status Last Admin Dose Admin Albuterol Sulfate 4 PUFFS RTQ4HR ONCE IH 07/15/21 14:00 07/15/21 14:01 DC 07/15/21 11:13 4 GM Furosemide 40 mg ONCE ONCE IVP 07/15/21 14:15 07/15/21 14:16 DC 07/15/21 14:41 40 MG Iohexol 100 ml ONCE ONCE IV 07/15/21 12:15 07/15/21 12:16 DC 07/15/21 13:07 65 ML Methylprednisolone Sodium Succinate 125 mg ONCE ONCE IVP 07/15/21 11:15 07/15/21 11:16 DC 07/15/21 11:11 125 MG Nitroglycerin 1 inch ONCE ONCE TOP 07/15/21 11:15 07/15/21 11:16 DC 07/15/21 11:11 1 INCH Potassium Chloride 20 meq ONCE ONCE PO 07/15/21 14:15 07/15/21 14:16 DC 07/15/21 14:40 20 MEQ Sodium Chloride 100 ml ONCE ONCE IV 07/15/21 12:15 07/15/21 12:16 DC 07/15/21 13:07 100 ML Vital Signs/I&O 07/15/21 07/15/21 07/15/21 07/15/21 11:01 11:06 11:17 11:24 Temp 35.8 Pulse 112 107 94 Resp 28 34 B/P (MAP) 228/137 (167) 220/124 Pulse Ox 96 99 99 96 O2 Delivery NIV Bilevel NIV Bilevel O2 Flow Rate 70.00 FiO2 70 07/15/21 07/15/21 07/15/21 07/15/21 11:49 12:05 12:40 13:29 Pulse 87 93 88 94 B/P (MAP) 185/115 165/90 181/106 175/99 Pulse Ox 99 92 99 97 O2 Delivery NIV Bilevel OxyMask O2 Flow Rate 7.00 07/15/21 07/15/21 07/15/21 07/15/21 13:47 14:19 14:56 15:36 Pulse 94 97 105 98 Resp 20 20 B/P (MAP) 185/112 179/99 194/128 189/129 Pulse Ox 96 96 95 95 O2 Delivery OxyMask OxyMask Nasal Cannula Nasal Cannula O2 Flow Rate 5.00 4.00 3.00 3.00 07/15/21 07/15/21 07/15/21 07/15/21 15:47 16:09 16:15 16:27 Pulse 93 98 94 Resp 12 B/P (MAP) 183/112 158/104 (122) Pulse Ox 95 94 O2 Delivery Nasal Cannula Nasal Cannula O2 Flow Rate 3.00 2.00 07/15/21 07/15/21 07/15/21 07/15/21 16:39 18:31 19:00 20:00 Temp 35.8 37.7 Pulse 94 92 93 Resp 20 B/P (MAP) 169/99 (122) Pulse Ox 94 98 96 O2 Delivery Nasal Cannula Nasal Cannula O2 Flow Rate 4.00 3.00 FiO2 36 Capillary Refill : Blood Pressure Mean: 167 Progress Note #1: Time: 11:13 Progress Note Patient was seen and examined immediately upon arrival. She was transitioned from EMS CPAP to BiPAP. She will receive Solu-Medrol and albuterol treatments through the BiPAP. Septic work-up, cardiac work-up, and viral infection screening are underway. Patient requests full CODE STATUS. Progress Note #2: Time: 14:45 Progress Note Patient had a remarkable improvement on therapies administered. She is now comfortably breathing on 4 L by nasal cannula. D-dimer was elevated and CT angiogram was obtained. Pulmonary edema was identified without any evidence of pulmonary embolism. She is still hypertensive with the Nitropaste on with recent systolic blood pressure in the 170s. Lasix 40 mg IV is being given along with potassium 20 miliequivalents orally.. I have discussed the case with Dr. Torres. He would like the patient admitted to the fifth floor. He requested oral blood pressure management with lisinopril 20 mg now and daily as well as carvedilol 12.5 mg now and twice daily. He recommended continuing Lasix at 40 mg IV daily. I am also adding an echocardiogram to her work-up. Case was reviewed with Dr. Her who agrees with admission. ECG Initial ECG Impression Date: Jul 15, 2021 Initial ECG Impression Time: 11:11 Initial ECG Rate: 99 Initial ECG Rhythm: Normal Sinus Comment Sinus rhythm with no ST elevation or depression. No abnormal intervals or axis deviation. Diagnostic Imaging Diagonstic Imaging: Xray Plain Films/CT/US/NM/MRI: chest Comments Chest x-ray viewed by me. Report reviewed. See report below: NAME: KRISTIAN REY [facility] REC#: [id number] PT STATUS: REG ER : 1960 PHYSICIAN: NISHI BONE MD ADMIT DATE: 07/15/21/ER Draft Date of Exam:07/15/21 CHEST 1 VIEW, AP/PA ONLY Portable erect AP chest at 11:27. Indication: Shortness of breath The heart size is within normal limits and stable when compared to 09/10/2020. In the interval since the prior study alveolar/interstitial infiltrates have developed in both lung bases, particularly in the right infrahilar region. This appearance does suggest pneumonia/atelectasis. There is no pleural effusion identified. The upper lungs are generally clear. The central pulmonary vasculature is somewhat prominent but there is no sign of overt failure. The mediastinum is not widened. The osseous structures are intact. The orthopedic hardware overlying the thoracolumbar junction seen previously is again evident and no different. Impression: The appearance of the chest has worsened since the prior study as bibasilar pneumonia/atelectasis has developed, particularly in the right lung base. Dictated on workstation # [id number] Dict: 07/15/21 1142 Trans: 07/15/21 1145 CV [id number] Interpreted by: HERNANDO FANG MD Diagonstic Imaging: CT Plain Films/CT/US/NM/MRI: chest Comments NAME: KRISTIAN REY [facility] REC#: [id number] PT STATUS: REG ER : 1960 PHYSICIAN: NISHI BONE MD ADMIT DATE: 07/15/21/ER Draft Date of Exam:07/15/21 CT ANGIO CHEST W EXAMINATION: CT angiography of the chest. TECHNIQUE: Contrast enhanced thin section helical images were obtained through the chest with intravenous contrast timed for the optimal opacification of the arterial structures per CTA protocol. Post-processing, reconstructions and interpretation of angiographic images of the vessels was performed. 3D MIP reconstructions were performed and reviewed. All CT scans use one or more of the following dose optimizing techniques: automated exposure control, MA and/or KvP adjustment based on a patient size and exam type, or iterative reconstruction. HISTORY: Shortness of breath and chest pain. COMPARISON: 09/09/2020. FINDINGS: There is no pulmonary embolism. There is moderate pulmonary edema. There are small bilateral pleural effusions. There is mild bibasilar atelectasis. No pneumothorax. No suspicious nodules. There is no axillary or supraclavicular lymphadenopathy. There is no mediastinal lymphadenopathy. Heart size is normal. There are moderate coronary artery calcifications. No pericardial effusion. Aorta is normal in caliber. Limited views of the upper abdomen show changes of cholecystectomy. There are no suspicious osseous lesions. There is a new T9 compression fracture. IMPRESSION: 1. No pulmonary embolism. 2. Moderate pulmonary edema and small bilateral pleural effusions. 3. New possibly acute T9 compression fracture. Dictated on workstation # [id number] Dict: 07/15/21 1309 Trans: 07/15/21 1314 [id number] [id number] Interpreted by: MARTINA HOPSON MD Departure Impression Primary Impression: Respiratory failure Qualified Codes: J96.01 - Acute respiratory failure with hypoxia Additional Impressions: COPD exacerbation Pulmonary edema Qualified Codes: J81.0 - Acute pulmonary edema Hypertensive urgency Hyperglycemia Disposition: ADMITTED INPATIENT Condition: Improved Departure-Patient Inst. Referrals: [facility] (PCP) Primary Care Physician ROMA FONTANA (Family) Primary Care Physician NISHI BONE MD Jul 15, 2021 11:13
[2021-07-15] MEDS ORDERED: NITROGLYCERIN 2% OINT 1 GM UNIT DOSE PACKET TOP ONE (11:15)
[2021-07-15] MEDS ORDERED: methylPREDNISolone 125 MG (Solu-MEDROL) VIAL IVP ONE (11:15)
[2021-07-15 11:17] VITALS: BP 232/132
[2021-07-15 11:17] LABS: ABG BASE EXCESS 2.6 MMOL/L (-2.5-2.5); ABG OXYGEN SATURATION 98 % (94-100); ABG PCO2 44 MMHG (35-45); ABG PO2 102 MMHG (79-93); ABG TCO2 28.6 MMOL/L (21.0-31.0); ALLENS TEST YES-POS; INSPIRED O2 70% BIPAP; PATIENT TEMP 35.8; VENTILATOR NO
[2021-07-15 11:20] LABS: BASOPHILS # (AUTO) 0.1 10^3/uL (0.0-0.1); BASOPHILS % (AUTO) 1 % (0-10); EOSINOPHILS # (AUTO) 0.2 10^3/uL (0.0-0.3); EOSINOPHILS % (AUTO) 1 % (0-10); HEMATOCRIT 47 % (35-52); HEMOGLOBIN 15.8 g/dL (11.5-16.0); LYMPHOCYTES # (AUTO) 3.1 10^3/uL (1.0-4.0); LYMPHOCYTES % (AUTO) 19 % (12-44); MEAN CORPUSCULAR HEMOGLOBIN 32 pg (25-34); MEAN CORPUSCULAR HGB CONC 34 g/dL (32-36); MEAN CORPUSCULAR VOLUME 96 fL (80-99); MEAN PLATELET VOLUME 11.8 fL (9.0-12.2); MONOCYTES # (AUTO) 0.8 10^3/uL (0.0-1.0); MONOCYTES % (AUTO) 5 % (0-12); NEUTROPHILS # (AUTO) 11.7 10^3/uL (1.8-7.8); NEUTROPHILS % (AUTO) 73 % (42-75); PLATELET COUNT 339 10^3/uL (130-400)
[2021-07-15 11:39] LABS: FIBRIN DEGRADATION PRODUCTS 0.95 UG/ML (0.00-0.49); INR 0.9 (0.8-1.4); PROTHROMBIN TIME PATIENT 12.7 SEC (12.2-14.7)
[2021-07-15 11:45] LABS: ALANINE AMINOTRANSFERASE 11 U/L (0-55); ALKALINE PHOSPHATASE 101 U/L (40-136); BILIRUBIN,TOTAL 0.8 MG/DL (0.1-1.0); BUN/CREATININE RATIO 14; CALCIUM 9.4 MG/DL (8.5-10.1); CARBON DIOXIDE 25 MMOL/L (21-32); CHLORIDE 99 MMOL/L (98-107); CREATININE SERUM 0.72 MG/DL (0.60-1.30); GFR ESTIMATED 96; GLUCOSE 276 MG/DL (70-105); POTASSIUM 3.9 MMOL/L (3.6-5.0); SODIUM 136 MMOL/L (135-145); TOTAL PROTEIN 7.1 GM/DL (6.4-8.2)
--- NOTE | 2021-07-15 11:46 | Diagnostic Imaging Report ---
Portable erect AP chest at 11:27. Indication: Shortness of breath The heart size is within normal limits and stable when compared to 09/10/2020. In the interval since the prior study alveolar/interstitial infiltrates have developed in both lung bases, particularly in the right infrahilar region. This appearance does suggest pneumonia/atelectasis. There is no pleural effusion identified. The upper lungs are generally clear. The central pulmonary vasculature is somewhat prominent but there is no sign of overt failure. The mediastinum is not widened. The osseous structures are intact. The orthopedic hardware overlying the thoracolumbar junction seen previously is again evident and no different. Impression: The appearance of the chest has worsened since the prior study as bibasilar pneumonia/atelectasis has developed, particularly in the right lung base. Dictated by: Dictated on workstation # [id number]
[2021-07-15 11:55] LABS: BILIRUBIN,URINE NEGATIVE (NEGATIVE); CLARITY,URINE CLEAR; COLOR,URINE YELLOW; GLUCOSE, URINE (UA) 3+ (NEGATIVE); KETONES,URINE NEGATIVE (NEGATIVE); LEUKOCYTE ESTERASE ,URINE NEGATIVE (NEGATIVE); NITRITE,URINE NEGATIVE (NEGATIVE); PH,URINE 7.5 (5-9); PROTEIN,URINE 2+ (NEGATIVE)
[2021-07-15 11:56] LABS: BAND NEUTROPHILS 1 %; BASOPHILS % (MANUAL) 1 %; EOSINOPHILS % (MANUAL) 2 %; LYMPHOCYTES % (MANUAL) 18 %; MONOCYTES % (MANUAL) 7 %; NEUTROPHILS % (MANUAL) 71 %
[2021-07-15 11:57] LABS: RBC MORPH NORMAL
[2021-07-15 12:05] LABS: BACTERIA,URINE NEGATIVE /HPF
[2021-07-15] MEDS ORDERED: IOHEXOL 350 MG/ML 100 ML (OMNIPAQUE 350) VIAL IV ONE (12:15)
[2021-07-15] MEDS ORDERED: NS 100 ML (IVPB) BAG IV ONE (12:15)
[2021-07-15] MEDS ORDERED: HOLD METFORMIN - RECEIVED CONTRAST 20 ML VIAL IV SCH (12:15)
--- NOTE | 2021-07-15 13:14 | Diagnostic Imaging Report ---
EXAMINATION: CT angiography of the chest. TECHNIQUE: Contrast enhanced thin section helical images were obtained through the chest with intravenous contrast timed for the optimal opacification of the arterial structures per CTA protocol. Post-processing, reconstructions and interpretation of angiographic images of the vessels was performed. 3D MIP reconstructions were performed and reviewed. All CT scans use one or more of the following dose optimizing techniques: automated exposure control, MA and/or KvP adjustment based on a patient size and exam type, or iterative reconstruction. HISTORY: Shortness of breath and chest pain. COMPARISON: 09/09/2020. FINDINGS: There is no pulmonary embolism. There is moderate pulmonary edema. There are small bilateral pleural effusions. There is mild bibasilar atelectasis. No pneumothorax. No suspicious nodules. There is no axillary or supraclavicular lymphadenopathy. There is no mediastinal lymphadenopathy. Heart size is normal. There are moderate coronary artery calcifications. No pericardial effusion. Aorta is normal in caliber. Limited views of the upper abdomen show changes of cholecystectomy. There are no suspicious osseous lesions. There is a new T9 compression fracture. IMPRESSION: 1. No pulmonary embolism. 2. Moderate pulmonary edema and small bilateral pleural effusions. 3. New possibly acute T9 compression fracture. Dictated by: Dictated on workstation # [id number]
[2021-07-15] MEDS ORDERED: KCL 10 MEQ TAB (MICRO K) PO ONE (14:15)
[2021-07-15] MEDS ORDERED: FUROSEMIDE 40 MG/4 ML INJ (LASIX) IVP ONE (14:15)
[2021-07-15] MEDS ORDERED: KETOROLAC 30 MG/ML VIAL IVP ONE (14:45)
--- NOTE | 2021-07-15 15:05 | Consultation-Cardiology ---
HPI-Cardiology Cardiology Consultation: Date of Consultation 07/15/21 Time Seen by a Provider: 15:50 Date of Admission 07-15-21 Attending Physician Melba Her MD Admitting Physician No,Local Physician Consulting Physician Ricky Torres MD HPI: Chief Complaint: Progressive dyspnea Ms. Rey is a 61 yr old female admitted to [facility] from the ED with increasing SOB. She states she has been in her usual state of health till around approx 5:00 this morning when she developed sudden onset of SOB. She reports the SOB progressed throughout the morning prompting them to call EMS. She denies any c/o CP, palpitations, syncope, near syncope, LE swelling. n/v/d. She reports she previously had seen Dr. Sigala at [facility] for tachycardia, but has not seen him in over 3 years. She currently reports her SOB has greatly improved at this time. Review of Systems-Cardiology Review of Systems Constitutional: No chills, No fever; tiredness Eyes: No vision change Ears/Nose/Throat: No epistaxis, No recent hearing loss Respiratory: As described under HPI Cardiovascular: As described under HPI Gastrointestinal: no symptoms reported Genitourinary: No dysuria, No hematuria Musculoskeletal: back pain Skin: No rash on exposed areas, No ulcerations on exposed areas Psychiatric/Neurological: No anxiety, No depression, No seizure, No focal weakness, No syncope Hematologic: No bleeding abnormalities WRR-Ubjnve-Hiufdd Hx Patient Social History Smoking Status: Current Everyday Smoker Have you traveled recently?: No Alcohol Use?: No Substance type: Marijuana Pt feels they are or have been: No Tobacco type used: Cigarettes Immunizations Up To Date Tetanus Booster (TDap): Unknown Past Medical History PMH As described under Assessment. Family Medical History Family Medical History: She denies any family h/o CAD Allergies and Home Medications Allergies Coded Allergies: Penicillins (Verified Allergy, Unknown, 12/15/15) gabapentin (Verified Allergy, Unknown, 12/15/15) Patient Home Medication List ALPRAZolam (ALPRAZolam) 0.25 Mg Tablet, 0.25 MG PO Q8H PRN for ANXIETY, (Reported) Entered as Reported by: JENNIFER BOOTHE on 09/11/20 2301 Acetaminophen (Tylenol Extra Strength) 500 Mg Tablet, 1,000 MG PO Q8H PRN for PAIN-MILD (1-4), (Reported) Entered as Reported by: JENNIFER BOOTHE on 09/04/20 1414 Amitriptyline HCl (Amitriptyline HCl) 100 Mg Tablet, 100 MG PO HS, (Reported) Entered as Reported by: JENNIFER BOOTHE on 08/28/20 09 Amlodipine Besylate (Amlodipine Besylate) 5 Mg Tablet, 5 MG PO DAILY Prescribed by: GLORY YANG on 09/14/20 1228 Aspirin (Aspirin EC) 325 Mg Tablet.dr, 325 MG PO DAILY, (Reported) Entered as Reported by: JENNIFER BOOTHE on 09/11/20 145 Atorvastatin Calcium (Atorvastatin Calcium) 80 Mg Tablet, 80 MG PO DAILY, (Reported) Entered as Reported by: JENNIFER BOOTHE on 08/28/20 09 Bethanechol Chloride (Urecholine) 10 Mg Tablet, 25 MG PO ACHS, (Reported) Entered as Reported by: JENNIFER BOOTHE on 09/11/20 145 Carvedilol (Carvedilol) 25 Mg Tablet, 25 MG PO BID, (Reported) Entered as Reported by: JENNIFER BOOTHE on 08/28/20 09 Cyclobenzaprine HCl (Cyclobenzaprine HCl) 10 Mg Tablet, 10 MG PO TID PRN for MUSCLE SPASMS, (Reported) Entered as Reported by: JENNIFER BOOTHE on 09/11/20 145 Docusate Sodium (Stool Softener) 100 Mg Capsule, 1-2 MG PO BID PRN for CONSTIPATION-1ST LINE, (Reported) Entered as Reported by: JENNIFER BOOTHE on 09/04/20 141 Doxycycline Hyclate (Doxycycline Hyclate) 100 Mg Tablet, 100 MG PO BID Prescribed by: GLORY YANG on 09/14/20 1228 Escitalopram Oxalate (Escitalopram Oxalate) 20 Mg Tablet, 20 MG PO BID, (Reported) Entered as Reported by: JENNIFER BOOTHE on 08/28/20 09 Gabapentin (Gabapentin) 800 Mg Tablet, 800 MG PO 1200,1600,2200, (Reported) Entered as Reported by: JENNIFER BOOTHE on 09/11/20 1509 Insulin Detemir (Levemir Flextouch) 100 Unit/1 Ml Insuln.pen, 10 UNITS SC BID Prescribed by: ASHLYN WINTERS on 09/08/202047 Levothyroxine Sodium (Levothyroxine Sodium) 175 Mcg Tablet, 175 MCG PO DAILY, (Reported) Entered as Reported by: JENNIFER BOOTHE on 09/11/201457 Lisinopril (Lisinopril) 10 Mg Tablet, 10 MG PO DAILY, (Reported) Entered as Reported by: JENNIFER BOOTHE on 09/11/201457 Multivitamin (Multivitamin) 1 Each Tablet, 1 EACH PO DAILY, (Reported) Entered as Reported by: JENNIFER BOOTHE on 09/04/20 141 Nicotine (Nicoderm Cq) 1 Each Patch.td24, 21 MG TD DAILY@0900 Prescribed by: ASHLYN WINTERS on 09/08/202047 Oxycodone HCl (Oxycodone HCl) 5 Mg Tablet, 10 MG PO EVERY 3 HOURS PRN for PAIN- SEVERE (8-10), (Reported) Entered as Reported by: JENNIFER BOOTHE on 09/11/201457 Oxycodone HCl/Acetaminophen (Percocet 5-325 mg Tablet) 1 Each Tablet, 1 TAB PO Q6H Prescribed by: CAROLINE CABAN on 10/26/20 0935 Pantoprazole Sodium (Pantoprazole Sodium) 40 Mg Tablet.dr, 40 MG PO DAILY, (Reported) Entered as Reported by: JENNIFER BOOTHE on 09/11/201457 Potassium Chloride (K-Tab ER) 10 Meq Tablet.er, 10 MEQ PO DAILY, (Reported) Entered as Reported by: JENNIFER BOOTHE on 09/11/201457 Promethazine HCl (Promethazine Tablet) 25 Mg Tablet, 25 MG PO Q6H PRN for NAUSEA/VOMITING-2ND LINE, (Reported) Entered as Reported by: JENNIFER BOOTHE on 09/11/201457 Sucralfate (Sucralfate) 1 Gm Tablet, 1 GM PO ACHS, (Reported) Entered as Reported by: JENNIFER BOOTHE on 09/11/201457 Physical Exam-Cardiology Physical Exam Vital Signs/I&O 07/15/21 07/15/21 07/15/21 07/15/21 11:01 11:06 11:17 11:24 Temp 35.8 Pulse 112 107 94 Resp 28 34 B/P (MAP) 228/137 (167) 220/124 Pulse Ox 96 99 99 96 O2 Delivery NIV Bilevel NIV Bilevel O2 Flow Rate 70.00 FiO2 70 07/15/21 07/15/21 07/15/21 07/15/21 11:49 12:05 12:40 13:29 Pulse 87 93 88 94 B/P (MAP) 185/115 165/90 181/106 175/99 Pulse Ox 99 92 99 97 O2 Delivery NIV Bilevel OxyMask O2 Flow Rate 7.00 07/15/21 07/15/21 07/15/21 07/15/21 13:47 14:19 14:56 15:36 Pulse 94 97 105 98 Resp 20 20 B/P (MAP) 185/112 179/99 194/128 189/129 Pulse Ox 96 96 95 95 O2 Delivery OxyMask OxyMask Nasal Cannula Nasal Cannula O2 Flow Rate 5.00 4.00 3.00 3.00 07/15/21 15:47 Pulse 93 B/P (MAP) 183/112 Pulse Ox 95 O2 Delivery Nasal Cannula O2 Flow Rate 3.00 Capillary Refill : Constitutional: AAO x 3, well-developed, well-nourished HEENT: PERRL, other (thin hair), hearing is well preserved, oral hygience is good Neck: No carotid bruit; carotid pulses are 2 + bilaterally Respiratory: No accessory muscle use, No respiratory distress; chest expansion is symmetric, chest is bilaterally symmetric, other (diminished bases bilat) Cardiovascular: regular rate-rhythm; No JVD; S1 and S2 Gastrointestinal: No tender; soft, round, audible bowel sounds Extremities: no lower extremity edema bilateral Neurologic/Psychiatric: grossly intact (moves all extremities) Skin: normal color, warm/dry; No rash on exposed areas, No ulcerations on exposed areas Data Review Labs Laboratory Tests 07/15/21 10:58: Influenza Type A (RT-PCR) Not Detected, Influenza Type B (RT-PCR) Not Detected, SARS-CoV-2 RNA (RT-PCR) Not Detected 07/15/21 11:05: Blood Gas Puncture Site R RAD, Blood Gas Patient Temperature 35.8, Arterial Blood pH 7.40, Arterial Blood Partial Pressure CO2 44, Arterial Blood Partial Pressure O2 102H, Arterial Blood HCO3 27, Arterial Blood Total CO2 28.6, Arterial Blood Oxygen Saturation 98, Arterial Blood Base Excess 2.6H, Tuan Test YES-POS, Blood Gas Ventilator Setting NO, Blood Gas Inspired Oxygen 70% BIPAP 07/15/21 11:08: White Blood Count 16.0H, Red Blood Count 4.90, Hemoglobin 15.8, Hematocrit 47, Mean Corpuscular Volume 96, Mean Corpuscular Hemoglobin 32, Mean Corpuscular Hemoglobin Concent 34, Red Cell Distribution Width 11.9, Platelet Count 339, Mean Platelet Volume 11.8, Immature Granulocyte % (Auto) 0, Neutrophils (%) (Auto) 73, Lymphocytes (%) (Auto) 19, Monocytes (%) (Auto) 5, Eosinophils (%) (Auto) 1, Basophils (%) (Auto) 1, Neutrophils # (Auto) 11.7H, Lymphocytes # (Auto) 3.1, Monocytes # (Auto) 0.8, Eosinophils # (Auto) 0.2, Basophils # (Auto) 0.1, Immature Granulocyte # (Auto) 0.1, Neutrophils % (Manual) 71, Lymphocytes % (Manual) 18, Monocytes % (Manual) 7, Eosinophils % (Manual) 2, Basophils % (Ma nual) 1, Band Neutrophils 1, Blood Morphology Comment NORMAL, Prothrombin Time 12.7, INR Comment 0.9, Activated Partial Thromboplast Time 22L, D-Dimer 0.95H, Sodium Level 136, Potassium Level 3.9, Chloride Level 99, Carbon Dioxide Level 25, Anion Gap 12, Blood Urea Nitrogen 10, Creatinine 0.72, Estimat Glomerular Filtration Rate 96, BUN/Creatinine Ratio 14, Glucose Level 276H, Lactic Acid Level 1.24, Calcium Level 9.4, Corrected Calcium 9.4, Total Bilirubin 0.8, Aspartate Amino Transf (AST/SGOT) 16, Alanine Aminotransferase (ALT/SGPT) 11, Alkaline Phosphatase 101, Troponin I < 0.028, C-Reactive Protein High Sensitivity 0.08, B-Type Natriuretic Peptide 496.6H, Total Protein 7.1, Albumin 4.0, Procalcitonin 0.01 07/15/21 11:42: Urine Color YELLOW, Urine Clarity CLEAR, Urine pH 7.5, Urine Specific [place] 1.025H, Urine Protein 2+H, Urine Glucose (UA) 3+H, Urine Ketones NEGATIVE, Urine Nitrite NEGATIVE, Urine Bilirubin NEGATIVE, Urine Urobilinogen 0.2, Urine Leukocyte Esterase NEGATIVE, Urine RBC (Auto) NEGATIVE, Urine RBC NONE, Urine WBC NONE, Urine Squamous Epithelial Cells 2-5, Urine Crystals NONE, Urine Bacteria NEGATIVE, Urine Casts NONE, Urine Mucus NEGATIVE, Urine Culture Indicated NO Radiology NAME: KRISTIAN REY [facility] REC#: [id number] PT STATUS: REG ER : 1960 PHYSICIAN: NISHI BONE MD ADMIT DATE: 07/15/21/ER Draft Date of Exam:07/15/21 CHEST 1 VIEW, AP/PA ONLY Portable erect AP chest at 11:27. Indication: Shortness of breath The heart size is within normal limits and stable when compared to 09/10/2020. In the interval since the prior study alveolar/interstitial infiltrates have developed in both lung bases, particularly in the right infrahilar region. This appearance does suggest pneumonia/atelectasis. There is no pleural effusion identified. The upper lungs are generally clear. The central pulmonary vasculature is somewhat prominent but there is no sign of overt failure. The mediastinum is not widened. The osseous structures are intact. The orthopedic hardware overlying the thoracolumbar junction seen previously is again evident and no different. Impression: The appearance of the chest has worsened since the prior study as bibasilar pneumonia/atelectasis has developed, particularly in the right lung base. Dictated on workstation # [id number] Dict: 07/15/21 1142 Trans: 07/15/21 1145 [facility] [id number] Interpreted by: HERNANDO FANG MD Electronically signed by: NAME: KRISTIAN REY [facility] REC#: [id number] PT STATUS: REG ER : 1960 PHYSICIAN: NISHI BONE MD ADMIT DATE: 07/15/21/ER Draft Date of Exam:07/15/21 CT ANGIO CHEST W EXAMINATION: CT angiography of the chest. TECHNIQUE: Contrast enhanced thin section helical images were obtained through the chest with intravenous contrast timed for the optimal opacification of the arterial structures per CTA protocol. Post-processing, reconstructions and interpretation of angiographic images of the vessels was performed. 3D MIP reconstructions were performed and reviewed. All CT scans use one or more of the following dose optimizing techniques: automated exposure control, MA and/or KvP adjustment based on a patient size and exam type, or iterative reconstruction. HISTORY: Shortness of breath and chest pain. COMPARISON: 09/09/2020. FINDINGS: There is no pulmonary embolism. There is moderate pulmonary edema. There are small bilateral pleural effusions. There is mild bibasilar atelectasis. No pneumothorax. No suspicious nodules. There is no axillary or supraclavicular lymphadenopathy. There is no mediastinal lymphadenopathy. Heart size is normal. There are moderate coronary artery calcifications. No pericardial effusion. Aorta is normal in caliber. Limited views of the upper abdomen show changes of cholecystectomy. There are no suspicious osseous lesions. There is a new T9 compression fracture. IMPRESSION: 1. No pulmonary embolism. 2. Moderate pulmonary edema and small bilateral pleural effusions. 3. New possibly acute T9 compression fracture. Dictated on workstation # [id number] Dict: 07/15/21 1309 Trans: 07/15/21 1314 [id number] Interpreted by: MARTINA HOPSON MD Electronically signed by: ECG Impression ECG Comment SR with PAC's A/P-Cardiology Assessment/Admission Diagnosis Progressive dyspnea Acute CHF Uncontrolled HTN Reports h/o tachycardia (previously following with Dr. 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
[2021-07-15] MEDS ORDERED: lisINopril 20 MG (PRINIVIL) TABLET PO ONE (15:15)
[2021-07-15 16:15] VITALS: BP 158/104
[2021-07-15] MEDS ORDERED: CATHETER FLUSH 10 ML SYR IV PRN (16:30)
[2021-07-15 16:39] VITALS: BP 158/104
[2021-07-15] MEDS ORDERED: doxAzosin 4 MG (CARDURA) TAB PO PRN (16:45)
[2021-07-15] MEDS ORDERED: RT-ALBUTEROL/IPRATROPIUM 3 ML (DUONEB) VIAL INH PRN (17:00)
--- NOTE | 2021-07-15 18:18 | Consultation-Cardiology ---
HPI-Cardiology Cardiology Consultation: Date of Consultation 07/15/21 Time Seen by a Provider: 18:00 Date of Admission Attending Physician Melba Her MD Admitting Physician No,Local Physician Consulting Physician SHARRON NAIK MD, MA, FACP, FACC, FSCAI, CCDS HPI: Chief Complaint: Progressive dyspnea Ms. Ruiz is a 61 yr old female admitted to [facility] from the ED with increasing SOB. She states she has been in her usual state of health till around approx 5:00 this morning when she developed sudden onset of SOB. She reports the SOB progressed throughout the morning prompting them to call EMS. She denies any c/o CP, palpitations, syncope, near syncope, LE swelling. n/v/d. She reports she previously had seen Dr. Sigala at [facility] for tachycardia, but has not seen him in over 3 years. She currently reports her SOB has greatly improved at this time. Review of Systems-Cardiology Review of Systems Constitutional: No chills, No fever; tiredness Eyes: No vision change Ears/Nose/Throat: No epistaxis, No recent hearing loss Respiratory: As described under HPI Cardiovascular: As described under HPI Gastrointestinal: no symptoms reported Genitourinary: No dysuria, No hematuria Musculoskeletal: back pain Skin: No rash on exposed areas, No ulcerations on exposed areas Psychiatric/Neurological: No anxiety, No depression, No seizure, No focal w eakness, No syncope Hematologic: No bleeding abnormalities OBO-Dhedyf-Larvij Hx Patient Social History Smoking Status: Current Everyday Smoker Have you traveled recently?: No Alcohol Use?: No Substance type: Marijuana Pt feels they are or have been: No Tobacco type used: Cigarettes Immunizations Up To Date Tetanus Booster (TDap): Unknown Past Medical History PMH As described under Assessment. Family Medical History Family Medical History: She denies any family h/o CAD Allergies and Home Medications Allergies Coded Allergies: Penicillins (Verified Allergy, Unknown, 12/15/15) Patient Home Medication List Home Medication List Reviewed: Yes ALPRAZolam (ALPRAZolam) 0.25 Mg Tablet, 0.25 MG PO Q8H PRN for ANXIETY, (Reported) Entered as Reported by: JENNIFER BOOTHE on 09/11/20 1121 Acetaminophen (Tylenol Extra Strength) 500 Mg Tablet, 1,000 MG PO Q8H PRN for PAIN-MILD (1-4), (Reported) Entered as Reported by: JENNIFER BOOTHE on 09/04/20 1414 Amitriptyline HCl (Amitriptyline HCl) 100 Mg Tablet, 100 MG PO HS, (Reported) Entered as Reported by: JENNIFER BOOTHE on 08/28/20 09 Amlodipine Besylate (Amlodipine Besylate) 5 Mg Tablet, 5 MG PO DAILY Prescribed by: GLORY YANG on 09/14/20 1228 Aspirin (Aspirin EC) 325 Mg Tablet.dr, 325 MG PO DAILY, (Reported) Entered as Reported by: JENNIFER BOOTHE on 09/11/20 145 Atorvastatin Calcium (Atorvastatin Calcium) 80 Mg Tablet, 80 MG PO DAILY, (Reported) Entered as Reported by: JENNIFER BOOTHE on 08/28/20 09 Bethanechol Chloride (Urecholine) 10 Mg Tablet, 25 MG PO ACHS, (Reported) Entered as Reported by: JENNIFER BOOTHE on 09/11/20 145 Carvedilol (Carvedilol) 25 Mg Tablet, 25 MG PO BID, (Reported) Entered as Reported by: JENNIFER BOOTHE on 08/28/20 09 Cyclobenzaprine HCl (Cyclobenzaprine HCl) 10 Mg Tablet, 10 MG PO TID PRN for MUSCLE SPASMS, (Reported) Entered as Reported by: JENNIFER BOOTHE on 09/11/20 145 Docusate Sodium (Stool Softener) 100 Mg Capsule, 1-2 MG PO BID PRN for CONSTIPATION-1ST LINE, (Reported) Entered as Reported by: JENNIFER BOOTHE on 09/04/20 141 Doxycycline Hyclate (Doxycycline Hyclate) 100 Mg Tablet, 100 MG PO BID Prescribed by: GLORY YANG on 09/14/20 1228 Escitalopram Oxalate (Escitalopram Oxalate) 20 Mg Tablet, 20 MG PO BID, (Reported) Entered as Reported by: JENNIFER BOOTHE on 08/28/20 09 Gabapentin (Gabapentin) 800 Mg Tablet, 800 MG PO 1200,1600,2200, (Reported) Entered as Reported by: JENNIFER BOOTHE on 09/11/20 1509 Insulin Detemir (Levemir Flextouch) 100 Unit/1 Ml Insuln.pen, 10 UNITS SC BID Prescribed by: ASHLYN WINTERS on 09/08/202047 Levothyroxine Sodium (Levothyroxine Sodium) 175 Mcg Tablet, 175 MCG PO DAILY, (Reported) Entered as Reported by: JENNIFER BOOTHE on 09/11/201457 Lisinopril (Lisinopril) 10 Mg Tablet, 10 MG PO DAILY, (Reported) Entered as Reported by: JENNIFER BOOTHE on 09/11/201457 Multivitamin (Multivitamin) 1 Each Tablet, 1 EACH PO DAILY, (Reported) Entered as Reported by: JENNIFER BOOTHE on 09/04/20 141 Nicotine (Nicoderm Cq) 1 Each Patch.td24, 21 MG TD DAILY@0900 Prescribed by: ASHLYN WINTERS on 09/08/202047 Oxycodone HCl (Oxycodone HCl) 5 Mg Tablet, 10 MG PO EVERY 3 HOURS PRN for PAIN- SEVERE (8-10), (Reported) Entered as Reported by: JENNIFER BOOTHE on 09/11/201457 Oxycodone HCl/Acetaminophen (Percocet 5-325 mg Tablet) 1 Each Tablet, 1 TAB PO Q6H Prescribed by: CAROLINE CABAN on 10/26/20 0935 Pantoprazole Sodium (Pantoprazole Sodium) 40 Mg Tablet.dr, 40 MG PO DAILY, (Rep orted) Entered as Reported by: JENNIFER BOOTHE on 09/11/201457 Potassium Chloride (K-Tab ER) 10 Meq Tablet.er, 10 MEQ PO DAILY, (Reported) Entered as Reported by: JENNIFER BOOTHE on 09/11/201457 Promethazine HCl (Promethazine Tablet) 25 Mg Tablet, 25 MG PO Q6H PRN for NAUSEA/VOMITING-2ND LINE, (Reported) Entered as Reported by: JENNIFER BOOTHE on 09/11/201457 Sucralfate (Sucralfate) 1 Gm Tablet, 1 GM PO ACHS, (Reported) Entered as Reported by: JENNIFER BOOTHE on 09/11/201457 Physical Exam-Cardiology Physical Exam Vital Signs/I&O 07/15/21 07/15/21 07/15/21 07/15/21 11:01 11:06 11:17 11:24 Temp 35.8 Pulse 112 107 94 Resp 28 34 B/P (MAP) 228/137 (167) 220/124 Pulse Ox 96 99 99 96 O2 Delivery NIV Bilevel NIV Bilevel O2 Flow Rate 70.00 FiO2 70 07/15/21 07/15/21 07/15/21 07/15/21 11:49 12:05 12:40 13:29 Pulse 87 93 88 94 B/P (MAP) 185/115 165/90 181/106 175/99 Pulse Ox 99 92 99 97 O2 Delivery NIV Bilevel OxyMask O2 Flow Rate 7.00 07/15/21 07/15/21 07/15/21 07/15/21 13:47 14:19 14:56 15:36 Pulse 94 97 105 98 Resp 20 20 B/P (MAP) 185/112 179/99 194/128 189/129 Pulse Ox 96 96 95 95 O2 Delivery OxyMask OxyMask Nasal Cannula Nasal Cannula O2 Flow Rate 5.00 4.00 3.00 3.00 07/15/21 07/15/21 07/15/21 07/15/21 15:47 16:09 16:15 16:27 Pulse 93 98 94 Resp 12 B/P (MAP) 183/112 158/104 (122) Pulse Ox 95 94 O2 Delivery Nasal Cannula Nasal Cannula O2 Flow Rate 3.00 2.00 07/15/21 16:39 Temp 35.8 Pulse 94 Pulse Ox 94 FiO2 36 Capillary Refill : Constitutional: AAO x 3, well-developed, well-nourished HEENT: PERRL, other (thin hair), hearing is well preserved, oral hygience is good Neck: No carotid bruit; carotid pulses are 2 + bilaterally Respiratory: No accessory muscle use, No respiratory distress; chest expansion is symmetric, chest is bilaterally symmetric, other (diminished bases bilat) Cardiovascular: regular rate-rhythm; No JVD; S1 and S2 Gastrointestinal: No tender; soft, round, audible bowel sounds Extremities: no lower extremity edema bilateral Neurologic/Psychiatric: grossly intact (moves all extremities) Skin: normal color, warm/dry; No rash on exposed areas, No ulcerations on exposed areas Data Review Labs Laboratory Tests 07/15/21 10:58: Influenza Type A (RT-PCR) Not Detected, Influenza Type B (RT-PCR) Not Detected, SARS-CoV-2 RNA (RT-PCR) Not Detected 07/15/21 11:05: Blood Gas Puncture Site R RAD, Blood Gas Patient Temperature 35.8, Arterial Blood pH 7.40, Arterial Blood Partial Pressure CO2 44, Arterial Blood Partial Pressure O2 102H, Arterial Blood HCO3 27, Arterial Blood Total CO2 28.6, Arterial Blood Oxygen Saturation 98, Arterial Blood Base Excess 2.6H, Tuan Test YES-POS, Blood Gas Ventilator Setting NO, Blood Gas Inspired Oxygen 70% BIPAP 07/15/21 11:08: White Blood Count 16.0H, Red Blood Count 4.90, Hemoglobin 15.8, Hematocrit 47, Mean Corpuscular Volume 96, Mean Corpuscular Hemoglobin 32, Mean Corpuscular Hemoglobin Concent 34, Red Cell Distribution Width 11.9, Platelet Count 339, Mean Platelet Volume 11.8, Immature Granulocyte % (Auto) 0, Neutrophils (%) (Auto) 73, Lymphocytes (%) (Auto) 19, Monocytes (%) (Auto) 5, Eosinophils (%) (Auto) 1, Basophils (%) (Auto) 1, Neutrophils # (Auto) 11.7H, Lymphocytes # (Auto) 3.1, Monocytes # (Auto) 0.8, Eosinophils # (Auto) 0.2, Basophils # (Auto) 0.1, Immature Granulocyte # (Auto) 0.1, Neutrophils % (Manual) 71, Lymphocytes % (Manual) 18, Monocytes % (Manual) 7, Eosinophils % (Manual) 2, Basophils % (Manual) 1, Band Neutrophils 1, Blood Morphology Comment NORMAL, Prothrombin Time 12.7, INR Comment 0.9, Activated Partial Thromboplast Time 22L, D-Dimer 0.95H, Sodium Level 136, Potassium Level 3.9, Chloride Level 99, Carbon Dioxide Level 25, Anion Gap 12, Blood Urea Nitrogen 10, Creatinine 0.72, Estimat Glomerular Filtration Rate 96, BUN/Creatinine Ratio 14, Glucose Level 276H, Lactic Acid Level 1.24, Calcium Level 9.4, Corrected Calcium 9.4, Total Bilirubin 0.8, Aspartate Amino Transf (AST/SGOT) 16, Alanine Aminotransferase (ALT/SGPT) 11, Alkaline Phosphatase 101, Troponin I < 0.028, C-Reactive Protein High Sensitivity 0.08, B-Type Natriuretic Peptide 496.6H, Total Protein 7.1, Albumin 4.0, Procalcitonin 0.01 07/15/21 11:42: Urine Color YELLOW, Urine Clarity CLEAR, Urine pH 7.5, Urine Specific [place] 1.025H, Urine Protein 2+H, Urine Glucose (UA) 3+H, Urine Ketones NEGATIVE, Urine Nitrite NEGATIVE, Urine Bilirubin NEGATIVE, Urine Urobilinogen 0.2, Urine Leukocyte Esterase NEGATIVE, Urine RBC (Auto) NEGATIVE, Urine RBC NONE, Urine WB C NONE, Urine Squamous Epithelial Cells 2-5, Urine Crystals NONE, Urine Bacteria NEGATIVE, Urine Casts NONE, Urine Mucus NEGATIVE, Urine Culture Indicated NO A/P-Cardiology Assessment/Admission Diagnosis Progressive dyspnea Acute CHF, probably diastolic Uncontrolled HTN Reports h/o tachycardia (previously following with Dr. Sigala) - denies any h/o A-fib/flutter or other arrhythmia's Tobaccoism - cessation advised Probable COPD Kala's dz DM 2 Gastroparesis GERD Fibromyalgia Scleroderma Raynaud's Chronic back pain - back surgery in August 2020 Discussion and Recomendations Echocardiogram to eval structure and function Treat with diuretic and BB and DANIA Stop NTP Add low-dose ASA Advised to quit smoking immediately and completelye Monitor lab closely Further recs will be based on her hospital course We would like to thank Medical services for this consult SHARRON NAIK MD FACP FACC CCDS Jul 15, 2021 18:18
[2021-07-15] MEDS: RT-ALBUTEROL/IPRATROPIUM 3 ML (DUONEB) VIAL INH SCH (18:31)
[2021-07-15] MEDS ORDERED: ANTACID SUSP 30 ML UDC (MYLANTA) PO PRN (19:00)
[2021-07-15] MEDS ORDERED: polyethylene glycoL POWDER 17 GM (MIRALAX) PACK PO PRN (19:00)
[2021-07-15] MEDS ORDERED: IBUPROFEN 600 MG (MOTRIN) TAB PO PRN ×2 (19:00→21:30)
[2021-07-15] MEDS ORDERED: diphenhydrAMINE 25 MG TAB (BENADRYL) PO PRN (19:00)
[2021-07-15] MEDS ORDERED: ONDANSETRON 4 MG/2 ML (SDV) Z0FRAN IV PRN (19:00)
[2021-07-15] MEDS ORDERED: hydrALAZINE (APESOLINE) 20 MG/ML VIAL IV PRN (19:00)
[2021-07-15] MEDS ORDERED: ONDANSETRON 4 MG (ZOFRAN) ORAL DISSOLVE TAB PO PRN (19:00)
[2021-07-15] MEDS ORDERED: ACETAMINOPHEN 325 MG TABLET PO PRN (19:00)
[2021-07-15] MEDS ORDERED: MELATONIN 3 MG TABLET PO PRN (19:00)
[2021-07-15 20:00] VITALS: BP 169/99
[2021-07-15] MEDS ORDERED: CYCLOBENZAPRINE 10 MG (FLEXERIL) TAB PO PRN (20:30)
[2021-07-15] MEDS ORDERED: IBUPROFEN TABLET 200 MG TAB PO ONE (21:12)
[2021-07-15] MEDS ORDERED: GABAPENTIN 400 MG (NEURONTIN) CAP ONE (21:12)
[2021-07-15] MEDS: GABAPENTIN 400 MG (NEURONTIN) CAP PO SCH (21:15)
[2021-07-15] MEDS: inSUlin ASPART (NovoLOG) 1 UNIT/0.01 ML (CHARGE PER UNIT) SC SCH (21:16)
[2021-07-15] MEDS ORDERED: ENOXAPARIN 30 MG/0.3 ML (LOVENOX) SYR SC SCH (21:36)
[2021-07-15] MEDS: DOCUSATE SODIUM 100 MG (COLACE) CAP PO SCH (22:18)
[2021-07-15] MEDS: SENNOSIDES 8.6 MG (SENOKOT) TAB PO SCH (22:18)
[2021-07-15] MEDS: CATHETER FLUSH 10 ML SYR IV SCH (22:20)
[2021-07-16] MEDS: RT-ALBUTEROL/IPRATROPIUM 3 ML (DUONEB) VIAL INH SCH ×6 (00:28→18:21)
[2021-07-16 05:01] LABS: BASOPHILS # (AUTO) 0.1 10^3/uL (0.0-0.1); BASOPHILS % (AUTO) 1 % (0-10); EOSINOPHILS % (AUTO) 0 % (0-10); HEMATOCRIT 42 % (35-52); HEMOGLOBIN 14.4 g/dL (11.5-16.0); LYMPHOCYTES # (AUTO) 3.5 10^3/uL (1.0-4.0); LYMPHOCYTES % (AUTO) 32 % (12-44); MEAN CORPUSCULAR HEMOGLOBIN 32 pg (25-34); MEAN CORPUSCULAR HGB CONC 34 g/dL (32-36); MEAN CORPUSCULAR VOLUME 92 fL (80-99); MONOCYTES # (AUTO) 0.8 10^3/uL (0.0-1.0); MONOCYTES % (AUTO) 8 % (0-12); NEUTROPHILS # (AUTO) 6.6 10^3/uL (1.8-7.8); NEUTROPHILS % (AUTO) 60 % (42-75); PLATELET COUNT 257 10^3/uL (130-400)
[2021-07-16 05:14] LABS: POTASSIUM 3.4 MMOL/L (3.6-5.0)
[2021-07-16 05:16] LABS: CALCIUM 9.7 MG/DL (8.5-10.1)
[2021-07-16 05:20] LABS: CREATININE SERUM 0.7 MG/DL (0.60-1.30); PHOSPHORUS 3.2 MG/DL (2.3-4.7)
[2021-07-16 05:22] LABS: MAGNESIUM 1.7 MG/DL (1.6-2.4)
[2021-07-16] MEDS ORDERED: MAGNESIUM 1 GM/100 ML IVPB 100 ML IV SCH (06:00)
[2021-07-16] MEDS ORDERED: KCL 20 MEQ TAB (K-DUR) PO SCH (06:00)
[2021-07-16] MEDS ORDERED: POTASSIUM CL 10MEQ/50ML IVPB 50 ML IV SCH (06:00)
[2021-07-16] MEDS: CATHETER FLUSH 10 ML SYR IV SCH ×2 (06:29→12:42)
[2021-07-16] MEDS: MAGNESIUM 1 GM/100 ML IVPB 100 ML IV SCH ×2 (06:29→07:28)
--- NOTE | 2021-07-16 07:15 | Diagnostic Imaging Report ---
INDICATION: Dyspnea. Comparison is made with prior examination from 07/15/21. FINDINGS: The heart size is normal. There has been interval improvement in the bibasilar infiltrates which are now minimal. There is no pleural effusion or pneumothorax. The mediastinum is unremarkable. There are postsurgical changes in the spine. IMPRESSION: Interval improvement in the bibasilar infiltrates which are now minimal. Dictated by: Dictated on workstation # [id number]
[2021-07-16] MEDS: inSUlin ASPART (NovoLOG) 1 UNIT/0.01 ML (CHARGE PER UNIT) SC SCH ×3 (07:28→16:28)
[2021-07-16] MEDS: DOCUSATE SODIUM 100 MG (COLACE) CAP PO SCH (07:36)
[2021-07-16] MEDS: lisINopril 20 MG (PRINIVIL) TABLET PO SCH ×2 (07:37→07:43)
[2021-07-16] MEDS: SENNOSIDES 8.6 MG (SENOKOT) TAB PO SCH (07:38)
[2021-07-16] MEDS: GABAPENTIN 400 MG (NEURONTIN) CAP PO SCH ×2 (07:38→12:41)
[2021-07-16] MEDS ORDERED: KCL 20 MEQ TAB (K-DUR) PO NR (08:00)
[2021-07-16 08:20] VITALS: BP 101/74
[2021-07-16] MEDS ORDERED: FUROSEMIDE 40 MG/4 ML INJ (LASIX) IVP SCH (09:00)
[2021-07-16] MEDS ORDERED: IBUP-1773 PO (10:31)
[2021-07-16] MEDS ORDERED: INSU200I4 SQ (10:31)
[2021-07-16] MEDS ORDERED: OMEP1CAP PO (10:31)
[2021-07-16] MEDS ORDERED: ASPI-1238 PO (10:31)
[2021-07-16] MEDS ORDERED: GABA800T10 PO (10:31)
[2021-07-16] MEDS ORDERED: LEVO100T7 PO (10:31)
[2021-07-16] MEDS ORDERED: OMEP40CA6 PO (10:45)
[2021-07-16] MEDS ORDERED: ESCI-2 PO (10:45)
[2021-07-16] MEDS ORDERED: CARV12.53 PO (11:29)
[2021-07-16] MEDS ORDERED: LISI20TA26 PO (11:29)
[2021-07-16] MEDS ORDERED: FURO-125 PO (11:29)
[2021-07-16] MEDS ORDERED: POTA10CA43 PO (11:29)
[2021-07-16 12:09] VITALS: BP 116/66
--- NOTE | 2021-07-16 15:19 | Progress Note - Cardiology ---
Cardiology SOAP Progress Note Subjective: Shortness of breath better No cp or palp or syncope No swelling No n/v/d Objective: I&O/Vital Signs 07/16/21 07/16/21 07/16/21 07/16/21 04:00 06:49 07:00 08:20 Temp 37.2 36.0 Pulse 85 80 Resp 18 B/P (MAP) 101/74 (83) Pulse Ox 97 93 O2 Delivery Room Air Room Air 07/16/21 07/16/21 07/16/21 07/16/21 09:00 10:40 12:09 12:49 Temp 37.2 Pulse 80 82 Resp 20 B/P (MAP) 116/66 (83) Pulse Ox 93 97 96 O2 Delivery Room Air Room Air Room Air 07/16/21 14:56 Pulse Ox 97 O2 Delivery Room Air 07/16/21 00:00 Intake Total 640 ml Output Total 1100 ml Balance -460 ml Weight (Pounds): 165 Weight (Ounces): 0.0 Weight (Calculated Kilograms): 74.347935 Constitutional: AAO x 3, well-developed, well-nourished Respiratory: No accessory muscle use, No respiratory distress; chest expansion is symmetric, chest is bilaterally symmetric, other (diminished bases bilat) Cardiovascular: regular rate-rhythm; No JVD; S1 and S2 Gastrointestional: No tender; soft, round, audible bowel sounds Extremities: no lower extremity edema bilateral Neurologic/Psychiatric: grossly intact (moves all extremities) Skin: normal color, warm/dry Results/Procedures: Labs Laboratory Tests 07/15/21 20:23: Glucometer 288H 07/16/21 04:35: White Blood Count 11.0, Red Blood Count 4.55, Hemoglobin 14.4, Hematocrit 42, Mean Corpuscular Volume 92, Mean Corpuscular Hemoglobin 32, Mean Corpuscular Hemoglobin Concent 34, Red Cell Distribution Width 11.8, Platelet Count 257, Mean Platelet Volume 12.0, Immature Granulocyte % (Auto) 0, Neutrophils (%) (Auto) 60, Lymphocytes (%) (Auto) 32, Monocytes (%) (Auto) 8, Eosinophils (%) (Auto) 0, Basophils (%) (Auto) 1, Neutrophils # (Auto) 6.6, Lymphocytes # (Auto) 3.5, Monocytes # (Auto) 0.8, Eosinophils # (Auto) 0.0, Basophils # (Auto) 0.1, Immature Granulocyte # (Auto) 0.0, Sodium Level 133L, Potassium Level 3.4L, Chloride Level 96L, Carbon Dioxide Level 25, Anion Gap 12, Blood Urea Nitrogen 15, Creatinine 0.70, Estimat Glomerular Filtration Rate 100, BUN/Creatinine Ratio 21, Glucose Level 154H, Calcium Level 9.7, Phosphorus Level 3.2, Magnesium Level 1.7, Thyroid Stimulating Hormone (TSH) 6.18H 07/16/21 10:33: Glucometer 177H Microbiology 07/15/21 Urine Culture - Final, Complete Mixed Bacterial Maryann A/P: Assessment: Ac diastolic CHF due to uncontrolled hypertension - Echo on 07/16/21: LVEF 60-65%, mild LVH, grade 1 gutiérrez dysfunction, trivial AI, PASP 35 mmHg Hypertension with hypertensive cardiovascular disease Tobaccoism - cessation advised Probable COPD Kala's dz DM 2 Gastroparesis GERD Fibromyalgia Scleroderma Raynaud's Chronic back pain - back surgery in August 2020 Plan: Reduce diuretic. Continue BB and DANIA-inhib Continue low-dose ASA Advised to quit smoking immediately and completely Close outpt f/u advised SHARRON NAIK MD FACP FAC CCDS Jul 16, 2021 15:19
[2021-07-16 15:25] VITALS: BP 119/65
--- NOTE | 2021-07-16 16:55 | Discharge Summary ---
Discharge Summary Hospital Course Problems/Dx: (1) Hypertensive emergency Status: Acute (2) Acute heart failure with preserved ejection fraction (HFpEF) Status: Acute (3) Pulmonary edema Status: Acute Qualifiers: Qualified Codes: J81.0 - Acute pulmonary edema (4) Acute respiratory failure with hypoxia Status: Acute Hospital Course Date of Admission: Jul 15, 2021 at 14:30 Admission Diagnosis : HTN emergency Family Physician/Provider: Alea Toney Physician Date of Discharge: 07/16/21 Discharge Diagnosis: HTN emergency, acute HFpEF with pulmonary edema Hospital Course: Shannan Ruiz is a 61 year old female who was admitted with HTN emergency. She was in respiratory distress on arrival and required BiPAP initially. She was given diuretics for acute pulmonary edema. Her respiratory status improved and so did her blood pressure. Cardiology was consulted and assisted with her care. She had an echo which showed normal EF with grade I diastolic dysfunction. She was discharged on Coreg and Lisinopril for hypertension. She was also started on a low dose of Lasix. She should follow up with Cardiology as scheduled. She plans to establish care with Dr. Arellano. She was discharged home in stable condition. Labs and Pending Lab Test: Laboratory Tests 07/15/21 20:23: Glucometer 288H 07/16/21 04:35: White Blood Count 11.0, Red Blood Count 4.55, Hemoglobin 14.4, Hematocrit 42, Mean Corpuscular Volume 92, Mean Corpuscular Hemoglobin 32, Mean Corpuscular Hemoglobin Concent 34, Red Cell Distribution Width 11.8, Platelet Count 257, Mean Platelet Volume 12.0, Immature Granulocyte % (Auto) 0, Neutrophils (%) (Auto) 60, Lymphocytes (%) (Auto) 32, Monocytes (%) (Auto) 8, Eosinophils (%) (Auto) 0, Basophils (%) (Auto) 1, Neutrophils # (Auto) 6.6, Lymphocytes # (Auto) 3.5, Monocytes # (Auto) 0.8, Eosinophils # (Auto) 0.0, Basophils # (Auto) 0.1, Immature Granulocyte # (Auto) 0.0, Sodium Level 133L, Potassium Level 3.4L, Chloride Level 96L, Carbon Dioxide Level 25, Anion Gap 12, Blood Urea Nitrogen 15, Creatinine 0.70, Estimat Glomerular Filtration Rate 100, BUN/Creatinine Ratio 21, Glucose Level 154H, Calcium Level 9.7, Phosphorus Level 3.2, Magnesium Level 1.7, Thyroid Stimulating Hormone (TSH) 6.18H 07/16/21 10:33: Glucometer 177H 07/16/21 15:31: Glucometer 182H Microbiology 07/15/21 Urine Culture - Final, Complete Mixed Bacterial Maryann Home Meds Active Potassium Chloride 10 Meq Capsule.er 10 Meq PO DAILY Lasix (Furosemide) 20 Mg Tablet 20 Mg PO DAILY Lisinopril 20 Mg Tablet 20 Mg PO DAILY@0900 Carvedilol 12.5 Mg Tablet 12.5 Mg PO BID Reported Omeprazole 40 Mg Capsule.dr 40 Mg PO DAILY PRN Escitalopram Oxalate 10 Mg Tablet 10 Mg PO HS LAST FILLED 04-19-2021 #30 DAY SUPPLY Tresiba Flextouch U-200 (Insulin Degludec) 200 Unit/1 Ml Insuln.pen 40 Unit SQ DAILY Ibuprofen 600 Mg Tablet 600 Mg PO BID PRN Gabapentin 800 Mg Tablet 800 Mg PO DAILY PRN Levothyroxine Sodium 100 Mcg Tablet 100 Mcg PO DAILY Aspirin EC (Aspirin) 81 Mg Tablet.dr 81 Mg PO HS Gabapentin 800 Mg Tablet 800 Mg PO 1300,2000 Cyclobenzaprine HCl 10 Mg Tablet 10 Mg PO HS PRN Carvedilol 25 Mg Tablet 25 Mg PO BID Assessment/Pt Instructions See instructions Discharge Planning: <30 minutes discharge planning Discharge Instructions Discharge Diet: Low Sodium Diet Activity as Tolerated: Yes Consultations Cardiology Discharge Physical Examination Vital Signs Vital Signs Date Time Temp Pulse Resp B/P (MAP) Pulse Ox O2 Delivery O2 Flow Rate FiO2 07/16/21 15:25 37.2 77 16 119/65 (83) 95 Room Air 07/16/21 02:38 4.00 07/15/21 21:00 70 General Appearance: No Apparent Distress, Thin HEENT: PERRL/EOMI, Pharynx Normal Respiratory: Lungs Clear, No Respiratory Distress Cardiovascular: Regular Rate, Rhythm, No Murmur Gastrointestinal: Normal Bowel Sounds, Non Tender, Soft Extremity: Normal Inspection, No Pedal Edema Skin: Normal Color, Warm/Dry Neurologic/Psychiatric: Alert, Oriented x3, Normal Mood/Affect Allergies: Coded Allergies: Penicillins (Verified Allergy, Unknown, 12/15/15) Copy Copies To 1: PHIL ARELLANO MD Discharge Summary Date of Admission Jul 15, 2021 at 14:30 Date of Discharge Discharge Date: Jul 16, 2021 Discharge Time: 16:53 Admission Diagnosis HTN emergency Consults/Procedures Consulations Cardiology Discharge Diagnosis (1) Hypertensive emergency Status: Acute (2) Acute heart failure with preserved ejection fraction (HFpEF) Status: Acute (3) Pulmonary edema Status: Acute Qualifiers: Qualified Codes: J81.0 - Acute pulmonary edema (4) Acute respiratory failure with hypoxia Status: Acute RAFAT VILLAGOMEZ MD Jul 16, 2021 16:43
[2021-07-16 18:39] VITALS: BP 119/65
== END 2021-07-16 19:26 | disposition home or self-care (01) | DRG 304 ==
LOC: EDUNIT# 10:51 → ER 10:52 → CSD 14:30
PROVIDERS: ADMIT Internal Medicine; ATTEND Internal Medicine
DX: I16.1 Hypertensive emergency (principal); I50.33 Acute on chronic diastolic (congestive) heart failure; J96.01 Acute respiratory failure with hypoxia; J44.1 Chronic obstructive pulmonary disease with (acute) exacerbation; I11.0 Hypertensive heart disease with heart failure; F17.210 Nicotine dependence, cigarettes, uncomplicated; K21.9 Gastro-esophageal reflux disease without esophagitis; F41.9 Anxiety disorder, unspecified; F31.9 Bipolar disorder, unspecified; E11.65 Type 2 diabetes mellitus with hyperglycemia; I48.91 Unspecified atrial fibrillation; E06.3 Autoimmune thyroiditis; E11.43 Type 2 diabetes mellitus with diabetic autonomic (poly)neuropathy; K31.84 Gastroparesis; M79.7 Fibromyalgia; M34.9 Systemic sclerosis, unspecified; I65.8 Occlusion and stenosis of other precerebral arteries; G89.29 Other chronic pain; M54.9 Dorsalgia, unspecified; Z20.822 Contact with and (suspected) exposure to COVID-19; Z79.82 Long term (current) use of aspirin; Z79.4 Long term (current) use of insulin; Z79.899 Other long term (current) drug therapy
CPT/HCPCS: 36415; 36600; 71045; 71275; 80048; 80053; 81000; 82805; 82947; 83605; 83735; 83880; 84100; 84145; 84443; 84484; 85007; 85025; 85027; 85379; 85610; 85730; 86141; 87040; 87088; 87636; 93005; 93306; 94640; 94664; 96374; 96375; 99291

== ENCOUNTER → 2021-07-20 | Outpatient (CLI) | payer MEDICARE ==
[~2021-07-20] MED LIST changes: +CARV12.53 PO; +ESCI-2 PO; +FURO-125 PO; +IBUP-1773 PO; +INSU200I4 SQ; +LEVO100T7 PO; +LISI20TA26 PO; +OMEP1CAP PO; +POTA10CA43 PO
[2021-07-20 10:44] LABS: CALCIUM 10.1 MG/DL (8.5-10.1); CREATININE SERUM 0.74 MG/DL (0.60-1.30); MAGNESIUM 1.8 MG/DL (1.6-2.4); POTASSIUM 3.8 MMOL/L (3.6-5.0)
== END ==
LOC: LAB 10:06
PROVIDERS: ATTEND Nurse Practitioner Family
DX: I50.9 Heart failure, unspecified (principal)
CPT/HCPCS: 36415; 80048; 83735

== ENCOUNTER → 2021-08-13 | Outpatient (CLI) | payer MEDICARE ==
[~2021-08-13] VITALS: Ht 172 cm; Wt 57.0 kg
[~2021-08-13] MED LIST changes: +REGADENOSON 0.4 MG/5 ML SYR (LEXISCAN) IV ONE
[2021-08-13] MEDS: CATHETER FLUSH 10 ML SYR IVP PRN ×2 (07:28→09:06)
[2021-08-13 08:59] VITALS: BP 160/87
--- NOTE | 2021-08-16 13:20 | STRESS TEST ---
DATE OF SERVICE: 08/13/2021 RESTING AND POST REGADENOSON TECHNETIUM-99M TETROFOSMIN SPECT CT IMAGING ORDERING PHYSICIAN: Dr. Torres. CLINICAL DIAGNOSIS: Chest discomfort. Baseline images were carried out after injection of 10.51 mCi of technetium-99m Tetrofosmin. This was followed by 0.4 mg regadenoson that was followed by 29 mCi of technetium-99m Tetrofosmin for stress imaging. The electrocardiogram showed sinus rhythm at baseline and did not change significantly with the regadenoson infusion. The patient tolerated the procedure well. Review of images at rest and following stress indicates an inferolateral perfusion defect, which is partially transient. Gated images show inferolateral hypokinesis to akinesis. Left ventricular ejection fraction is calculated to be 56%. Left ventricular end diastolic volume is 86 mL. TID is absent(0.94). CONCLUSIONS: 1. Inferolateral myocardial infarction with a small to moderate amount suggested inferolateral myocardial infarction with a moderate amount of krissy-infarct ischemia. 2. Inferolateral hypokinesis to akinesis. 3. Well preserved global left ventricular systolic function with a calculated ejection fraction of 56%. Job ID: [id number] DocumentID: [id number] Dictated Date: 08/16/2021 09:48:16 Bell Staff Date: 08/16/2021 13:19:42 Dictated By: SHARRON TORRES MD, MA, FACP, FACC,
== END ==
LOC: CARD 07:45
PROVIDERS: ATTEND Internal Medicine Cardiovascular Disease
DX: R07.89 Other chest pain (principal)
CPT/HCPCS: 78452; 93017; A9502

== ENCOUNTER → 2021-08-19 | Outpatient (CLI) | payer MEDICARE ==
[~2021-08-19] MED LIST changes: +FURO20TA4 PO; +INSU100I32 SQ; +POTA10TA37 PO; -REGADENOSON 0.4 MG/5 ML SYR (LEXISCAN) IV ONE
[2021-08-19 09:49] LABS: ALBUMIN 4.2 GM/DL (3.2-4.5); POTASSIUM 4.2 MMOL/L (3.6-5.0)
[2021-08-19 09:50] LABS: CALCIUM 10.2 MG/DL (8.5-10.1)
[2021-08-19 09:51] LABS: TOTAL PROTEIN 7.3 GM/DL (6.4-8.2)
[2021-08-19 09:53] LABS: BILIRUBIN,TOTAL 0.7 MG/DL (0.1-1.0)
[2021-08-19 09:55] LABS: CREATININE SERUM 0.75 MG/DL (0.60-1.30)
== END ==
LOC: LAB 09:05
PROVIDERS: ATTEND Internal Medicine Cardiovascular Disease
DX: I51.9 Heart disease, unspecified (principal); I10 Essential (primary) hypertension; Z72.0 Tobacco use
CPT/HCPCS: 36415; 80053; 80061; 84443

== ENCOUNTER 2021-08-24 11:00 | Day surgery (SDC) | payer MEDICARE ==
[2021-08-24] VITALS (26 sets, daily range): BP systolic 99–152; BP diastolic 50–104
[~2021-08-24] VITALS: Ht 172 cm; Wt 57.2 kg
[2021-08-24 09:19] LABS: HEMATOCRIT 42 % (35-52); HEMOGLOBIN 14.2 g/dL (11.5-16.0); MEAN CORPUSCULAR HEMOGLOBIN 31 pg (25-34); MEAN CORPUSCULAR HGB CONC 34 g/dL (32-36); MEAN CORPUSCULAR VOLUME 93 fL (80-99); MEAN PLATELET VOLUME 10.8 fL (9.0-12.2); PLATELET COUNT 298 10^3/uL (130-400); WHITE BLOOD COUNT 12.3 10^3/uL (4.3-11.0)
[2021-08-24 09:35] LABS: INR 0.9 (0.8-1.4); PROTHROMBIN TIME PATIENT 12.9 SEC (12.2-14.7)
[2021-08-24 09:50] LABS: ALBUMIN 3.9 GM/DL (3.2-4.5); BILIRUBIN,TOTAL 0.7 MG/DL (0.1-1.0); CALCIUM 9.5 MG/DL (8.5-10.1); CREATININE SERUM 0.71 MG/DL (0.60-1.30); POTASSIUM 3.7 MMOL/L (3.6-5.0); TOTAL PROTEIN 6.4 GM/DL (6.4-8.2)
[~2021-08-24 11:00] MED LIST changes: +HEParin (CATH LAB) 2,000 ML IV ONE; +LIDOCAINE 1% INJ 50 ML (XYLOCAINE) VIAL ONE; +MIDAZOLAM 5 MG/5 ML (VERSED) VIAL ONE; +NS IV 1000 ML 1,000 ML IV SCH; +fentaNYL INJ 100 MCG/2 ML AMP ONE
[2021-08-24] MEDS ORDERED: EPTIFIBATIDE BOLUS 10 ML IV ONE (11:02)
[2021-08-24] MEDS ORDERED: EPTIFIBATIDE DRIP 100 ML IV ONE (11:02)
[2021-08-24] MEDS ORDERED: HEParin 1000 UNIT/ML (10ML VIAL) FOR BOLUS ONE (11:02)
[2021-08-24] MEDS ORDERED: NITRO DRIP 25000 MCG/D5W 250 ML IV ONE (11:10)
[2021-08-24] MEDS ORDERED: CLOPIDOGREL 300 MG (PLAVIX) TABLET PO ONE (11:42)
[2021-08-24] MEDS ORDERED: ASPIRIN 81 MG CHEW (CHILDREN'S ASA) ONE (11:43)
--- NOTE | 2021-08-24 12:26 | Cardiac Procedure Note-CS/ASA ---
Pre-Procedure Note Pre-Op Procedure Note H&P Reviewed The H&P was reviewed, patient examined and no changes noted. Date H&P Reviewed: Aug 24, 2021 Time H&P Reviewed: 11:00 Conscious Sedation Pre-Proced Time 11:00 ASA Score 4 For ASA 3 and 4: Consider anesthesia and medical clearance. Also, for patients with a history of failed moderate sedation consider anesthesia. Airway Lungs Heart ASA score ASA 1: a normal healthy patient ASA 2: a patient with a mild systemic disease (mid diabetes, controlled hypertension, obesity ASA 3: a patient with a severe systemic disease that limits activity (angina, COPD, prior Myocardial infarction) ASA 4: a patient with an incapacitating disease that is a constant threat to life (CHF, renal failure) ASA 5: a moribund patient not expected to survive 24 hrs. (ruptured aneurysm) ASA 6: a declared brain- patient whose organs are being harvested. For emergent operations, add the letter E after the classification Mallampati Classification Grade 2 Sedation Plan Analgesia, Amnesia, Plan communicated to team members, Discussed options with patient/fam, Discussed risks with patient/fam The patient is an appropriate candidate to undergo the planned procedure, sedation, and anesthesia. The patient immediately re-assessed prior to indication. SHARRON NAIK MD FACP FAC CCDS Aug 24, 2021 12:26
[2021-08-24] MEDS ORDERED: PATIENT MAY USE OWN MEDS, ALL PO SCH (12:30)
[2021-08-24] MEDS: NS IV 1000 ML 1,000 ML IV SCH (12:55)
--- NOTE | 2021-08-24 13:28 | CARDIAC CATHETERIZATION ---
DATE OF SERVICE: 08/24/2021 CARDIAC CATHETERIZATION AND CORONARY INTERVENTION REPORT INDICATION FOR PROCEDURE: The patient is a 61-year-old lady, who has been experiencing shortness of breath and has been diagnosed with diastolic congestive heart failure in the recent past. She has class II congestive heart failure. Myocardial perfusion imaging has indicated inferolateral myocardial infarction with a small to moderate amount of ischemia. Due to this and due to continued symptoms, we recommended cardiac catheterization and possible coronary intervention. DESCRIPTION OF PROCEDURE: She was brought to the cardiac catheterization laboratory after she had provided an informed consent. The right groin was prepared and draped in the usual sterile fashion. Lidocaine 1% was used as local anesthesia. Modified Seldinger technique was used to advance a 5-Chilean sheath into the right femoral artery, 5-Chilean JL4 catheter for left angiography, 5-Chilean JR4 catheter for right coronary angiography, and 5-Chilean pigtail catheter was used for left heart catheterization and left ventricular angiography. Subsequently, we carried out percutaneous intervention to the left circumflex artery that is described below. PERCUTANEOUS INTERVENTION TO THE LEFT CIRCUMFLEX ARTERY: We exchanged the sheath over a wire for a 6-Chilean sheath. We gave 5000 units of intravenous heparin and double bolus of Integrilin was given during the interventional procedure and Integrilin infusion was continued throughout the procedure. We used a 6-Chilean JL4 guide catheter. We advanced a ChoICE floppy wire across long stenosis in the proximal portion of a large first obtuse marginal branch. This stenosis is up to 99% and the distal flow was ZAHIRA 2 prior to the procedure. After passage of a wire, we carried out balloon angioplasty with 2.5 x 30 mm balloon. This reduced the stenosis to approximately 70%. We then advanced a Skypoint 3.0 x 33 mm stent to the lesion. This was deployed at 12 atmospheres. We then pulled the balloon back to the proximal three fourths of the stented segment and inflated the balloon to 15 atmospheres. This was done because the proximal portion of the stented segment is of somewhat larger caliber than the distal portion. The balloon was then removed and angiography indicated that the 99% stenosis had been reduced to 0% residual. In the very proximal portion of the obtuse marginal, there still remained 60% to 70% stenosis. Therefore, we advanced another Skypoint 3.0 x 12 mm stent. The distal portion of this stent was made to overlap the proximal portion of the previously deployed stent. The stent was carefully positioned to cover the entire remaining lesion. The stent was deployed at 15 atmospheres and subsequently postdilated to 16 atmospheres. The balloon was then removed. Subsequent angiography reveals no significant residual stenosis within a long proximal stenosis in the first obtuse marginal branch where the stenosis had been up to 99%. Following stenting, the distal flow improved from ZAHIRA 2 to ZAHIRA 3. She tolerated the procedure well. Angioplasty equipment was removed. Sheath was sutured in place for manual sheath removal on the floor. She tolerated the procedure well. HEMODYNAMICS: Left ventricular end-diastolic pressure following coronary angiography was 12 mmHg. There was no significant pressure gradient on pullback across the aortic valve. CORONARY ANGIOGRAPHY: Left main coronary artery does not exhibit significant disease. Left anterior descending artery has mild plaques. The first diagonal branch of the left anterior descending artery is of a relatively small caliber and has stenosis in its proximal portion of up to approximately 60%. The left circumflex artery is codominant. It is occluded in its distal portion. The first obtuse marginal branch of the left circumflex artery had a long stenosis of up to 99% that was successfully stented with overlapping stents that are described above. This resulted in reduction of stenosis to 0% residual and improvement of flow from ZAHIRA 2 to ZAHIRA 3. The right coronary artery is codominant. It has diffuse mild to moderate plaque. LEFT VENTRICULAR ANGIOGRAPHY: Left ventricular angiography was carried out in the right anterior oblique projection. Global left ventricular systolic function is well preserved. Left ventricular ejection fraction approximately 60%. There is a relatively small portion of posterobasal akinesis seen in the BOSWELL projection. CONCLUSIONS: 1. Coronary artery disease primarily consisting of distal occlusion of a codominant left circumflex and a long, up to 99% stenosis in the first obtuse marginal that was successfully stented with overlapping Skypoint 3.0 x 32 mm and Skypoint 3.0 x 12 mm stents with reduction of restenosis to 0% residual and improvement of flow from ZAHIRA 2 to ZAHIRA 3. The first diagonal branch, left anterior descending artery is of a small caliber and has 60% proximal stenosis. The rest of the vessels have diffuse mild to moderate plaque. 2. Well preserved global left ventricular systolic function. 3. Localized posterobasal akinesis. 4. Left ventricular end-diastolic pressure 12 mmHg. DISCUSSION AND RECOMMENDATIONS: She is being hospitalized for observation after this procedure. Dual antiplatelet therapy is being continued. She is on statin therapy that has been continued. We are also continuing her beta quentin and DANIA inhibitors. Further recommendation will be based on her hospital course. Job ID: [id number] DocumentID: [id number] Dictated Date: 08/24/2021 12:17:31 Commercial Attache Date: 08/24/2021 13:27:14 Dictated By: SHARRON NAIK MD, MA, FACP, FACC,
[2021-08-24] MEDS: IBUPROFEN 600 MG (MOTRIN) TAB PO PRN ×2 (15:32→20:55)
[2021-08-24] MEDS ORDERED: ONDANSETRON 4 MG/2 ML (SDV) Z0FRAN IV PRN (16:15)
[2021-08-24] MEDS: CYCLOBENZAPRINE 10 MG (FLEXERIL) TAB PO PRN ×2 (16:54→20:55)
[2021-08-25] VITALS: BP 130/88
[2021-08-25] MEDS: NS IV 1000 ML 1,000 ML IV SCH (01:41)
[2021-08-25] MEDS: IBUPROFEN 600 MG (MOTRIN) TAB PO PRN (03:47)
[2021-08-25 04:00] VITALS: BP 140/82
--- NOTE | 2021-08-25 08:02 | Progress Note - Cardiology ---
Cardiology SOAP Progress Note Objective: I&O/Vital Signs 08/24/21 08/24/21 08/24/21 08/24/21 20:00 20:00 21:01 22:00 Pulse 74 83 71 Resp 19 31 9 B/P (MAP) 126/79 (95) 127/90 (102) 102/50 (67) Pulse Ox 94 93 O2 Delivery Room Air Room Air Room Air Room Air 08/24/21 08/25/21 08/25/21 08/25/21 23:00 00:00 00:00 01:00 Temp 37.1 Pulse 69 73 70 Resp 8 16 B/P (MAP) 135/85 (102) 130/88 (102) Pulse Ox 93 93 O2 Delivery Room Air Room Air Room Air 08/25/21 08/25/21 08/25/21 08/25/21 04:00 04:00 07:00 07:00 Temp 36.9 Pulse 75 91 91 Resp 19 20 B/P (MAP) 140/82 (101) Pulse Ox 93 94 O2 Delivery Room Air Room Air Room Air 08/25/21 00:00 Intake Total 640 ml Output Total 0 ml Balance 640 ml Weight (Pounds): 165 Weight (Ounces): 0.0 Weight (Calculated Kilograms): 74.431785 Results/Procedures: Labs Laboratory Tests 08/24/21 09:13: White Blood Count 12.3H, Red Blood Count 4.52, Hemoglobin 14.2, Hematocrit 42, Mean Corpuscular Volume 93, Mean Corpuscular Hemoglobin 31, Mean Corpuscular Hemoglobin Concent 34, Red Cell Distribution Width 11.9, Platelet Count 298, Mean Platelet Volume 10.8, Prothrombin Time 12.9, INR Comment 0.9, Activated Partial Thromboplast Time 23L, Sodium Level 139, Potassium Level 3.7, Chloride Level 101, Carbon Dioxide Level 25, Anion Gap 13, Blood Urea Nitrogen 15, Creatinine 0.71, Estimat Glomerular Filtration Rate 98, BUN/Creatinine Ratio 21, Glucose Level 214H, Calcium Level 9.5, Corrected Calcium 9.6, Total Bilirubin 0.7, Aspartate Amino Transf (AST/SGOT) 11, Alanine Aminotransferase (ALT/SGPT) 12, Alkaline Phosphatase 88, Total Protein 6.4, Albumin 3.9, Triglycerides Level 116, Cholesterol Level 215H, LDL Cholesterol Direct 166H, VLDL Cholesterol 23, HDL Cholesterol 37L 08/24/21 16:06: Glucometer 129H Microbiology 08/24/21 MRSA Screen - Final, Complete MRSA not isolated Laboratory Tests 08/24/21 09:13 A/P: Assessment: CAD - MPI of 08-13-21: Inferolateral myocardial infarction with a small to moderate amount suggested inferolateral myocardial infarction with a moderate amount of krissy-infarct ischemia. Inferolateral hypokinesis to akinesis.. Well preserved global left ventricular systolic function with a calculated ejection fraction of 56%. - Cardiac cath of 08-24-21: Coronary artery disease primarily consisting of distal occlusion of a codominant left circumflex and a long, up to 99% stenosis in the first obtuse marginal that was successfully stented with overlapping Skypoint 3.0 x 32 mm and Skypoint 3.0 x 12 mm stents with reduction of reste nosis to 0% residual and improvement of flow from ZAHIRA 2 to ZAHIRA 3. The first diagonal branch, left anterior descending artery is of a small caliber and has 60% proximal stenosis. The rest of the vessels have diffuse mild to moderate plaque. Well preserved global left ventricular systolic function. Localized posterobasal akinesis. Left ventricular end-diastolic pressure 12 mmHg. Chr diastolic CHF due to uncontrolled hypertension - Echo on 07/16/21: LVEF 60-65%, mild LVH, grade 1 gutiérrez dysfunction, trivial AI, PASP 35 mmHg HLD - statin tx started on 08-20-21 Hypertension with hypertensive cardiovascular disease Tobaccoism - cessation advised Probable COPD Kala's dz DM 2, insulin-requiring Gastroparesis GERD Fibromyalgia Scleroderma Chronic dizziness of undetermined etiology Raynaud's Chronic back pain - back surgery in August 2020 LUAN PELAEZ Aug 25, 2021 08:01
[2021-08-25] MEDS ORDERED: ASPI81TA64 PO (08:12)
[2021-08-25] MEDS ORDERED: ATOR40TA PO (08:12)
[2021-08-25] MEDS ORDERED: CLOP75TA28 PO (08:12)
--- NOTE | 2021-08-25 08:13 | Discharge Inst-Cardiology ---
Discharge Inst-Cardiac Discharge Medications New Medications: Aspirin (Children's Aspirin) 81 Mg Tab.chew 81 MG PO DAILY, #90 TAB 3 Refills Atorvastatin Calcium (Lipitor) 40 Mg Tablet 40 MG PO HS, #90 TAB 3 Refills Clopidogrel Bisulfate (Clopidogrel) 75 Mg Tablet 75 MG PO DAILY, #90 TAB 3 Refills Continued Medications: Carvedilol (Carvedilol) 12.5 Mg Tablet 12.5 MG PO BID, TAB Cyclobenzaprine HCl (Cyclobenzaprine HCl) 10 Mg Tablet 10 MG PO HS PRN for MUSCLE SPASMS, TAB Furosemide (Furosemide) 20 Mg Tablet 20 MG PO DAILY, TAB Ibuprofen (Ibuprofen) 600 Mg Tablet 600 MG PO BID PRN for PAIN-MILD (1-4), TAB Insulin Degludec (Tresiba Flextouch U-100) 100 Unit/1 Ml Insuln.pen 70 UNIT SQ DAILY, EA Levothyroxine Sodium (Levothyroxine Sodium) 100 Mcg Tablet 100 MCG PO DAILY, TAB Lisinopril (Lisinopril) 20 Mg Tablet 20 MG PO DAILY, TAB Omeprazole/Sodium Bicarbonate (Zegerid 40 mg Capsule) 1 Each Capsule 1 EACH PO BID PRN for HEARTBURN, CAP Potassium Chloride (Potassium Chloride) 10 Meq Tab.er.prt 10 MEQ PO DAILY Discontinued Medications: Aspirin (Aspirin EC) 81 Mg Tablet.dr 81 MG PO HS, TAB New, Converted or Re-Newed RX: Transmitted to Pharmacy Patient Instructions Patient Instructions: Please schedule a follow up appointment to see Dr. Torres in 2 weeks LUAN PELAEZ Aug 25, 2021 08:13
[2021-08-25 09:00] VITALS: BP 120/93
[2021-08-25] MEDS ORDERED: ASPIRIN 81 MG CHEW (CHILDREN'S ASA) PO SCH (09:00)
[2021-08-25] MEDS ORDERED: FUROSEMIDE 20 MG (LASIX) TAB PO SCH (09:00)
[2021-08-25] MEDS ORDERED: LEVOTHYROXINE 100 MCG (LEVOTHROID) TAB PO SCH (09:00)
[2021-08-25] MEDS ORDERED: KCL 10 MEQ TAB (MICRO K) PO SCH (09:00)
[2021-08-25] MEDS ORDERED: lisINopril 20 MG (PRINIVIL) TABLET PO SCH (09:00)
[2021-08-25] MEDS ORDERED: CLOPIDOGREL 75 MG (PLAVIX) TABLET PO SCH (09:00)
[2021-08-25] MEDS: CYCLOBENZAPRINE 10 MG (FLEXERIL) TAB PO PRN (09:20)
--- NOTE | 2021-08-25 13:23 | Progress Note - Cardiology ---
Cardiology SOAP Progress Note Subjective: No cp or palp or syncope or shortness of breath No groin or leg discomfort Some mid back discomfort from having to lie on back for several hours No n/v/d Objective: I&O/Vital Signs 08/25/21 08/25/21 08/25/21 08/25/21 04:00 04:00 07:00 07:00 Temp 36.9 Pulse 75 91 91 Resp 19 20 B/P (MAP) 140/82 (101) Pulse Ox 93 94 O2 Delivery Room Air Room Air Room Air 08/25/21 08/25/21 08/25/21 08/25/21 08:00 08:00 08:00 09:00 Temp 36.5 Pulse 75 Resp 22 B/P (MAP) 120/93 (102) Pulse Ox 95 O2 Delivery Room Air Room Air 08/25/21 08/25/21 09:00 10:02 Pulse 79 Resp 8 B/P (MAP) O2 Delivery Room Air 08/25/21 00:00 Intake Total 640 ml Output Total 0 ml Balance 640 ml Weight (Pounds): 165 Weight (Ounces): 0.0 Weight (Calculated Kilograms): 74.873923 Groin site without hematoma: Yes Condition: DP/PT pulses palpable Bruising: mild bruising Constitutional: AAO x 3, well-developed, well-nourished Respiratory: No accessory muscle use; other (good bilateral air entry) Cardiovascular: regular rate-rhythm, S1 and S2, systolic murmur (soft LOAN at card base) Gastrointestional: No tender; soft; No guarding, No rebound; audible bowel sounds Extremities: No clubbing, No cyanosis, No significant edema Neurologic/Psychiatric: oriented x 3, other (moves all limbs equally) Skin: No rash, No ulcerations Results/Procedures: Labs Laboratory Tests 08/24/21 16:06: Glucometer 129H Microbiology 08/24/21 MRSA Screen - Final, Complete MRSA not isolated Laboratory Tests 08/24/21 09:13 A/P: Assessment: CAD - MPI of 08-13-21: Inferolateral myocardial infarction with a small to moderate amount suggested inferolateral myocardial infarction with a moderate amount of krissy-infarct ischemia. Inferolateral hypokinesis to akinesis.. Well preserved global left ventricular systolic function with a calculated ejection fraction of 56%. - Cardiac cath of 08-24-21: Coronary artery disease primarily consisting of distal occlusion of a codominant left circumflex and a long, up to 99% stenosis in the first obtuse marginal that was successfully stented with overlapping Skypoint 3.0 x 32 mm and Skypoint 3.0 x 12 mm stents with reduction of stenosis to 0% residual and improvement of flow from ZAHIRA 2 to ZAHIRA 3. The first diagonal branch, left anterior descending artery is of a small caliber and has 60% proximal stenosis. The rest of the vessels have diffuse mild to moderate plaque. Well preserved global left ventricular systolic function. Localized posterobasal akinesis. Left ventricular end-diastolic pressure 12 mmHg. Chr diastolic CHF due to uncontrolled hypertension - Echo on 07/16/21: LVEF 60-65%, mild LVH, grade 1 gutiérrez dysfunction, trivial AI, PASP 35 mmHg HLD - statin tx started on 08-20-21 Hypertension with hypertensive cardiovascular disease Tobaccoism - cessation advised Probable COPD Kala's dz DM 2, insulin-requiring Gastroparesis GERD Fibromyalgia Scleroderma Chronic dizziness of undetermined etiology Raynaud's Chronic back pain - back surgery in August 2020 Plan: * We reviewed and discussed with her the cath findings and the interventions undertaken * We discussed her cardiac regimen and advised compliance * We have advised and discussed risk factor mod * We advised outpt f/u * Questions answered SHARRON NAIK MD FACP [facility] Aug 25, 2021 13:23
== END 2021-08-25 09:50 | disposition home or self-care (01) ==
LOC: CATH 11:00 → ICU 12:11 → CATH 08-25 09:50
PROVIDERS: ATTEND Internal Medicine Cardiovascular Disease
DX: I25.10 Atherosclerotic heart disease of native coronary artery without angina pectoris (principal); I11.0 Hypertensive heart disease with heart failure; I50.31 Acute diastolic (congestive) heart failure; I21.9 Acute myocardial infarction, unspecified; I73.00 Raynaud's syndrome without gangrene; R07.89 Other chest pain; E06.3 Autoimmune thyroiditis; E78.5 Hyperlipidemia, unspecified; E11.9 Type 2 diabetes mellitus without complications; E78.2 Mixed hyperlipidemia; E11.43 Type 2 diabetes mellitus with diabetic autonomic (poly)neuropathy; K31.84 Gastroparesis; K21.9 Gastro-esophageal reflux disease without esophagitis; M79.7 Fibromyalgia; M54.9 Dorsalgia, unspecified; M34.9 Systemic sclerosis, unspecified; G89.29 Other chronic pain; F17.210 Nicotine dependence, cigarettes, uncomplicated; Z79.4 Long term (current) use of insulin; Z79.899 Other long term (current) drug therapy
CPT/HCPCS: 80053; 80061; 82947; 85027; 85610; 85730; 87081; 93005; 93458; C1725; C1769; C1874 ×2; C1887; C1894 ×2; C9600; 36415

== ENCOUNTER → 2021-09-20 | Outpatient (CLI) | payer MEDICARE ==
[~2021-09-20] MED LIST changes: +ASPI81TA64 PO; +ATOR40TA PO; +CLOP75TA28 PO; -HEParin (CATH LAB) 2,000 ML IV ONE; -LIDOCAINE 1% INJ 50 ML (XYLOCAINE) VIAL ONE; -MIDAZOLAM 5 MG/5 ML (VERSED) VIAL ONE; -NS IV 1000 ML 1,000 ML IV SCH; -fentaNYL INJ 100 MCG/2 ML AMP ONE
--- NOTE | 2021-09-20 17:05 | Diagnostic Imaging Report ---
HISTORY: Pain in the right groin, post cath. COMPARISON: None TECHNIQUE: Simons scale, color Doppler and spectral Doppler ultrasound was performed of the arterial structures in the right lower extremity. FINDINGS: The right common femoral artery has a biphasic waveform and measures 121 cm/s. The deep femoral artery has a biphasic waveform and measures 68 cm/s. The superficial femoral artery has a biphasic waveform throughout, measuring between 72 and 183 cm/s. The popliteal artery measures 44 cm/s and has a biphasic waveform. The dorsalis pedis has a monophasic waveform and measures 32 cm/s. The posterior tibial artery measures 51 cm/s and has a biphasic waveform. There are 2 hypoechoic fluid collections adjacent to the common femoral artery which likely represent hematomas, one measuring up to 1.9 cm and the other measuring up to 1.8 cm. There is no internal blood flow to indicate a pseudoaneurysm. The right perineum soft tissue was scanned, but no mass or fluid collection is seen. IMPRESSION: 1. Two small hematomas adjacent to the common femoral artery. No pseudoaneurysm is seen at this time. 2. No high-grade stenosis or occlusion is seen in the right lower extremity arteries. Dictated by: Dictated on workstation # [id number]
== END ==
LOC: RAD 11:00
PROVIDERS: ATTEND Nurse Practitioner Family
DX: S75.001A Unspecified injury of femoral artery, right leg, initial encounter (principal); R10.2 Pelvic and perineal pain; R00.2 Palpitations; X58.XXXA Exposure to other specified factors, initial encounter
CPT/HCPCS: 93225; 93226; 93926

== ENCOUNTER 2021-11-26 11:08 | Emergency (ER) | payer MEDICARE ==
[~2021-11-26] VITALS: Ht 172.7 cm; Wt 57.6 kg
[2021-11-26] MEDS ORDERED: NS IV 1000 ML 1,000 ML IV SCH (11:15)
--- NOTE | 2021-11-26 11:29 | ED GI ---
General Chief Complaint: Abdominal/GI Problems Stated Complaint: N/V Source of Information: Patient Exam Limitations: No Limitations (LANCE ELIAS APRN) History of Present Illness Date Seen by Provider: Nov 26, 2021 Time Seen by Provider: 11:28 Initial Comments To ER with nausea vomiting for about 8 days. She is been unable to take her cardiac medications due to this. No fevers or chills. She does have abdominal pain. No diarrhea. Timing/Duration: 1 Week Severity/Quality: Severe Location: Generalized Abdomen Radiation: No Radiation Activities at Onset: None Associated Symptoms: Nausea/Vomiting (LANCE ELIAS APRN) Allergies and Home Medications Allergies Coded Allergies: Penicillins (Verified Allergy, Unknown, 12/15/15) Patient Home Medication List Home Medication List Reviewed: Yes (LANCE ELIAS APRN) Aspirin (Children's Aspirin) 81 Mg Tab.chew, 81 MG PO DAILY Prescribed by: LUAN PELAEZ on 08/25/21811 Atorvastatin Calcium (Lipitor) 40 Mg Tablet, 40 MG PO HS Prescribed by: LUAN PELAEZ on 08/25/21811 Carvedilol (Carvedilol) 12.5 Mg Tablet, 12.5 MG PO BID, (Reported) Entered as Reported by: PRADEEP VICTOR on 08/24/21941 Clopidogrel Bisulfate (Clopidogrel) 75 Mg Tablet, 75 MG PO DAILY Prescribed by: LUAN PELAEZ on 08/25/21811 Cyclobenzaprine HCl (Cyclobenzaprine HCl) 10 Mg Tablet, 10 MG PO HS PRN for MUSCLE SPASMS, (Reported) Entered as Reported by: JENNIFER BOOTHE on 09/11/20 1458 Furosemide (Furosemide) 20 Mg Tablet, 20 MG PO DAILY, (Reported) Entered as Reported by: PRADEEP VICTOR on 08/24/21 09 Ibuprofen (Ibuprofen) 600 Mg Tablet, 600 MG PO BID PRN for PAIN-MILD (1-4), (Reported) Entered as Reported by: PRADEEP VICTOR on 08/24/21 09 Insulin Degludec (Tresiba Flextouch U-100) 100 Unit/1 Ml Insuln.pen, 70 UNIT SQ DAILY, (Reported) Entered as Reported by: PRADEEP VICTOR on 08/24/21941 Levothyroxine Sodium (Levothyroxine Sodium) 100 Mcg Tablet, 100 MCG PO DAILY, (Reported) Entered as Reported by: JENNIFER BOOTHE on 07/16/21 1031 Lisinopril (Lisinopril) 20 Mg Tablet, 20 MG PO DAILY, (Reported) Entered as Reported by: PRADEEP VICTOR on 08/24/21 0946 Omeprazole/Sodium Bicarbonate (Zegerid 40 mg Capsule) 1 Each Capsule, 1 EACH PO BID PRN for HEARTBURN, (Reported) Entered as Reported by: PRADEEP VICTOR on 08/24/21 0942 Ondansetron (Ondansetron Odt) 4 Mg Tab.rapdis, 4 MG PO Q6H PRN for NAUSEA/VOMITING Prescribed by: LANCE ELIAS on 11/26/21 1151 Potassium Chloride (Potassium Chloride) 10 Meq Tab.er.prt, 10 MEQ PO DAILY, (Reported) Entered as Reported by: PRADEEP VICTOR on 08/24/21 0942 Review of Systems Review of Systems Constitutional: see HPI EENTM: No Symptoms Reported Respiratory: No Symptoms Reported Cardiovascular: No Symptoms Reported Gastrointestinal: See HPI, Abdominal Pain; Denies Constipated, Denies Diarrhea; Nausea Genitourinary: No Symptoms Reported Musculoskeletal: no symptoms reported Skin: no symptoms reported Psychiatric/Neurological: No Symptoms Reported Endocrine: No Symptoms Reported Hematologic/Lymphatic: No Symptoms Reported (LANCE ELIAS APRN) Past Xzewvzj-Bsiewm-Cieinw Hx Patient Social History Tobacco Use?: Yes Tobacco type used: Cigarettes Smokeless Tobacco Frequency: Never a User Use of E-Cig and/or Vaping dev: No Use of E-Cig and/or Vaping Tray: Never a User Substance use?: Yes Substance type: Marijuana Substance frequency: Couple times a week Alcohol Use?: No Pt feels they are or have been: No (LANCE ELIAS APRN) Immunizations Up To Date Tetanus Booster (TDap): Unknown PED Vaccines UTD: Yes (LANCE ELIAS APRN) Seasonal Allergies Seasonal Allergies: No (LANCE ELIAS APRN) Past Medical History Surgeries: Yes ( X 2; BACK SURGERY 08/24/20 DUE TO TRAUMA) Section, Gallbladder, Hysterectomy, Orthopedic Respiratory: Yes (SLEEP APNEA, USES C-PAP) Sleep Apnea Currently Using CPAP: Yes Cardiac: Yes (A-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 AORTIC VALVE) Atrial Fibrillation, Irregular Heartbeat, Valvular Heart Disease 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 History: Hysterectomy, Menopausal Genitourinary: Yes (HAD ACUTE RENAL FAILURE/INSUFFICIENCY WHEN SHE FELL 3-NO DIALYSIS) Renal Failure Gastrointestinal: No Musculoskeletal: Yes (FALL 08/20/20-T12 BURST FX AND RIGHT WRIST FX) Endocrine: Yes (TYPE 2 ) Diabetes, Insulin dep HEENT: No Cancer: No Psychosocial: Yes Anxiety, Bipolar, Depression Integumentary: No Blood Disorders: No (LANCE ELIAS APRN) Family Medical History No Pertinent Family Hx DM (LANCE ELIAS APRN) Physical Exam Vital Signs Vital Signs - First Documented 11/26/21 11/26/21 11:18 12:45 Temp 36.8 Pulse 70 Resp 17 B/P (MAP) 142/73 (96) Pulse Ox 98 O2 Delivery Room Air (NISHI BONE MD) Vital Signs Capillary Refill : (LANCE ELIAS APRN) Height/Weight/BMI Height: 5'7.00" Weight: 165lbs. 0.0oz. 74.636768dl; 19.26 BMI Method:Stated General Appearance: WD/WN, no apparent distress, thin (Appears older than stated age) HEENT: PERRL/EOMI, normal ENT inspection Neck: non-tender, full range of motion Respiratory: no respiratory distress, no accessory muscle use Gastrointestinal: normal bowel sounds, soft, tenderness Extremities: normal range of motion, non-tender Neurologic/Psychiatric: alert, normal mood/affect, oriented x 3 Skin: normal color, warm/dry (LANCE ELIAS APRN) Progress/Results/Core Measures Results/Orders Lab Results Laboratory Tests Test 11/26/21 11:22 11/26/21 12:13 Range/Units White Blood Count 14.8 H 4.3-11.0 10^3/uL Red Blood Count 5.32 H 3.80-5.11 10^6/uL Hemoglobin 16.9 H 11.5-16.0 g/dL Hematocrit 48 35-52 % Mean Corpuscular Volume 91 80-99 fL Mean Corpuscular Hemoglobin 32 25-34 pg Mean Corpuscular Hemoglobin Concent 35 32-36 g/dL Red Cell Distribution Width 11.7 10.0-14.5 % Platelet Count 395 130-400 10^3/uL Mean Platelet Volume 10.7 9.0-12.2 fL Immature Granulocyte % (Auto) 0 % Neutrophils (%) (Auto) 65 42-75 % Lymphocytes (%) (Auto) 27 12-44 % Monocytes (%) (Auto) 7 0-12 % Eosinophils (%) (Auto) 0 0-10 % Basophils (%) (Auto) 1 0-10 % Neutrophils # (Auto) 9.7 H 1.8-7.8 10^3/uL Lymphocytes # (Auto) 4.0 1.0-4.0 10^3/uL Monocytes # (Auto) 1.0 0.0-1.0 10^3/uL Eosinophils # (Auto) 0.0 0.0-0.3 10^3/uL Basophils # (Auto) 0.1 0.0-0.1 10^3/uL Immature Granulocyte # (Auto) 0.1 0.0-0.1 10^3/uL Neutrophils % (Manual) 58 % Lymphocytes % (Manual) 33 % Monocytes % (Manual) 6 % Eosinophils % (Manual) 1 % Reactive Lymphocytes 2 % Blood Morphology Comment NORMAL Sodium Level 131 L 135-145 MMOL/L Potassium Level 3.6 3.6-5.0 MMOL/L Chloride Level 88 L 98-107 MMOL/L Carbon Dioxide Level 25 21-32 MMOL/L Anion Gap 18 H 5-14 MMOL/L Blood Urea Nitrogen 53 H 7-18 MG/DL Creatinine 1.77 H 0.60-1.30 MG/DL Estimat Glomerular Filtration Rate 33 BUN/Creatinine Ratio 30 Glucose Level 379 H 70-105 MG/DL Calcium Level 10.5 H 8.5-10.1 MG/DL Corrected Calcium 8.5-10.1 MG/DL Total Bilirubin 1.7 H 0.1-1.0 MG/DL Aspartate Amino Transf (AST/SGOT) 27 5-34 U/L Alanine Aminotransferase (ALT/SGPT) 37 0-55 U/L Alkaline Phosphatase 126 40-136 U/L Total Protein 8.1 6.4-8.2 GM/DL Albumin 4.8 H 3.2-4.5 GM/DL Lipase 33 8-78 U/L Urine Color YELLOW Urine Clarity CLEAR Urine pH 5.5 5-9 Urine Specific [place] 1.025 H 1.016-1.022 Urine Protein 1+ H NEGATIVE Urine Glucose (UA) 1+ H NEGATIVE Urine Ketones NEGATIVE NEGATIVE Urine Nitrite NEGATIVE NEGATIVE Urine Bilirubin NEGATIVE NEGATIVE Urine Urobilinogen 1.0 < = 1.0 MG/DL Urine Leukocyte Esterase NEGATIVE NEGATIVE Urine RBC (Auto) NEGATIVE NEGATIVE Urine RBC RARE /HPF Urine WBC 0-2 /HPF Urine Squamous Epithelial Cells 5-10 /HPF Urine Crystals PRESENT H /LPF Urine Amorphous Sediment FEW PEEWEE URATES H /LPF Urine Bacteria TRACE /HPF Urine Casts PRESENT /LPF Urine Hyaline Casts 0-2 H /LPF Urine Mucus NEGATIVE /LPF Urine Culture Indicated NO Urine Opiates Screen NEGATIVE NEGATIVE Urine Oxycodone Screen NEGATIVE NEGATIVE Urine Methadone Screen NEGATIVE NEGATIVE Urine Propoxyphene Screen NEGATIVE NEGATIVE Urine Barbiturates Screen NEGATIVE NEGATIVE Ur Tricyclic Antidepressants Screen NEGATIVE NEGATIVE Urine Phencyclidine Screen NEGATIVE NEGATIVE Urine Amphetamines Screen NEGATIVE NEGATIVE Urine Methamphetamines Screen NEGATIVE NEGATIVE Urine Benzodiazepines Screen POSITIVE H NEGATIVE Urine Cocaine Screen NEGATIVE NEGATIVE Urine Cannabinoids Screen POSITIVE H NEGATIVE (NISHI BONE MD) Medications Given in ED Current Medications Medications Dose Ordered Sig/Doug Route Start Time Stop Time Status Last Admin Dose Admin Al Hydrox/Mg Hydrox/Simethicone 30 ml ONCE ONCE PO 11/26/21 12:45 11/26/21 12:46 DC 11/26/21 12:42 30 ML Fentanyl Citrate 50 mcg ONCE ONCE IVP 11/26/21 11:30 11/26/21 11:31 DC 11/26/21 11:34 50 MCG Fentanyl Citrate 50 mcg ONCE ONCE IVP 11/26/21 12:45 11/26/21 12:46 DC 11/26/21 12:42 50 MCG Lidocaine HCl 15 ml ONCE ONCE PO 11/26/21 12:45 11/26/21 12:46 DC 11/26/21 12:42 15 ML Ondansetron HCl 8 mg ONCE ONCE IVP 11/26/21 11:30 11/26/21 11:31 DC 11/26/21 11:34 8 MG (NISHI BONE MD) Vital Signs/I&O 11/26/21 11/26/21 11:18 12:45 Temp 36.8 Pulse 70 72 Resp 17 16 B/P (MAP) 142/73 (96) 140/73 Pulse Ox 98 O2 Delivery Room Air Room Air (NISHI BONE MD) Departure Communication (Admissions) NAME: [facility]STIAN RE[facility] REC#: [id number] PT STATUS: REG ER : 1960 PHYSICIAN: LANCE ELIAS APRN ADMIT DATE: 11/26/21/ER Draft Date of Exam:11/26/21 CT ABDOMEN/PELVIS WO EXAMINATION: CT abdomen and pelvis without contrast. TECHNIQUE: Multiple contiguous axial images were obtained through the abdomen and pelvis without the use of intravenous contrast. All CT scans use one or more of the following dose optimizing techniques: automated exposure control, MA and/or KvP adjustment based on patient size and exam type or iterative reconstruction. HISTORY: Abdominal pain. COMPARISON: 09/09/2020 FINDINGS: Limited views of the lower thorax show coronary artery calcifications. The liver is normal without focal lesion. There is no biliary ductal dilation. Gallbladder is surgically absent. Pancreas is normal. Spleen is normal. Adrenal glands are normal. The kidneys are normal. There is no hydronephrosis. Urinary bladder is normal. Bowel is normal in caliber without obstruction or inflammation. No free fluid or air. No abdominal or pelvic lymphadenopathy. Aorta is normal in caliber without aneurysm. There are no suspicious osseous lesions. There has been thoracic and lumbar spine fusion for management of a T12 burst fracture. IMPRESSION: 1. No acute abnormality in the abdomen or pelvis. Dictated on workstation # [id number] Dict: 11/26/21 1145 Trans: 11/26/21 1148 [id number] Interpreted by: MARTINA HOPSON MD Electronically signed by: (LANCE ELIAS APRN) Impression Primary Impression: Nausea and vomiting Disposition: 01 HOME, SELF-CARE Condition: Stable Departure-Patient Inst. Decision time for Depature: 11:51 (LANCE ELIAS APRN) Referrals: NO,LOCAL PHYSICIAN (PCP/Family) Primary Care Physician Patient Instructions: Nausea and Vomiting, Adult Add. Discharge Instructions: 1. Nausea medication as needed 2. Follow-up with your doctor next week 3. Return to ER for any worsening. All discharge instructions reviewed with patient and/or family. Voiced understanding. Scripts Ondansetron (Ondansetron Odt) 4 Mg Tab.rapdis 4 MG PO Q6H PRN for NAUSEA/VOMITING, #8 TAB 0 Refills Prov: LANCE ELIAS APRN 11/26/21 ALNCE ELIAS APRN Nov 26, 2021 11:29 NISHI BONE MD Nov 26, 2021 18:28
[2021-11-26 11:30] LABS: BASOPHILS # (AUTO) 0.1 10^3/uL (0.0-0.1); BASOPHILS % (AUTO) 1 % (0-10); EOSINOPHILS % (AUTO) 0 % (0-10); HEMATOCRIT 48 % (35-52); HEMOGLOBIN 16.9 g/dL (11.5-16.0); LYMPHOCYTES % (AUTO) 27 % (12-44); MEAN CORPUSCULAR HEMOGLOBIN 32 pg (25-34); MEAN CORPUSCULAR HGB CONC 35 g/dL (32-36); MEAN CORPUSCULAR VOLUME 91 fL (80-99); MEAN PLATELET VOLUME 10.7 fL (9.0-12.2); MONOCYTES % (AUTO) 7 % (0-12); NEUTROPHILS # (AUTO) 9.7 10^3/uL (1.8-7.8); NEUTROPHILS % (AUTO) 65 % (42-75); PLATELET COUNT 395 10^3/uL (130-400); WHITE BLOOD COUNT 14.8 10^3/uL (4.3-11.0)
[2021-11-26] MEDS ORDERED: fentaNYL INJ 100 MCG/2 ML AMP IVP ONE ×2 (11:30→12:45)
[2021-11-26] MEDS ORDERED: ONDANSETRON 4 MG/2 ML (SDV) Z0FRAN IVP ONE (11:30)
[2021-11-26 11:38] LABS: ALBUMIN 4.8 GM/DL (3.2-4.5); CHLORIDE 88 MMOL/L (98-107); POTASSIUM 3.6 MMOL/L (3.6-5.0); SODIUM 131 MMOL/L (135-145)
[2021-11-26 11:39] LABS: CALCIUM 10.5 MG/DL (8.5-10.1)
[2021-11-26 11:40] LABS: GLUCOSE 379 MG/DL (70-105); TOTAL PROTEIN 8.1 GM/DL (6.4-8.2)
[2021-11-26 11:41] LABS: CARBON DIOXIDE 25 MMOL/L (21-32)
[2021-11-26 11:42] LABS: BILIRUBIN,TOTAL 1.7 MG/DL (0.1-1.0)
[2021-11-26 11:44] LABS: ALKALINE PHOSPHATASE 126 U/L (40-136); CREATININE SERUM 1.77 MG/DL (0.60-1.30); GFR ESTIMATED 33
[2021-11-26 11:45] LABS: BUN/CREATININE RATIO 30
[2021-11-26 11:46] LABS: EOSINOPHILS % (MANUAL) 1 %; LYMPHOCYTES % (MANUAL) 33 %; MONOCYTES % (MANUAL) 6 %; NEUTROPHILS % (MANUAL) 58 %; RBC MORPH NORMAL; REACTIVE LYMPHOCYTES 2 %
[2021-11-26 11:47] LABS: ALANINE AMINOTRANSFERASE 37 U/L (0-55); LIPASE 33 U/L (8-78)
--- NOTE | 2021-11-26 11:48 | Diagnostic Imaging Report ---
EXAMINATION: CT abdomen and pelvis without contrast. TECHNIQUE: Multiple contiguous axial images were obtained through the abdomen and pelvis without the use of intravenous contrast. All CT scans use one or more of the following dose optimizing techniques: automated exposure control, MA and/or KvP adjustment based on patient size and exam type or iterative reconstruction. HISTORY: Abdominal pain. COMPARISON: 09/09/2020 FINDINGS: Limited views of the lower thorax show coronary artery calcifications. The liver is normal without focal lesion. There is no biliary ductal dilation. Gallbladder is surgically absent. Pancreas is normal. Spleen is normal. Adrenal glands are normal. The kidneys are normal. There is no hydronephrosis. Urinary bladder is normal. Bowel is normal in caliber without obstruction or inflammation. No free fluid or air. No abdominal or pelvic lymphadenopathy. Aorta is normal in caliber without aneurysm. There are no suspicious osseous lesions. There has been thoracic and lumbar spine fusion for management of a T12 burst fracture. IMPRESSION: 1. No acute abnormality in the abdomen or pelvis. Dictated by: Dictated on workstation # [id number]
[2021-11-26] MEDS ORDERED: ONDA4TAB11 PO (11:51)
[2021-11-26 12:20] LABS: BILIRUBIN,URINE NEGATIVE (NEGATIVE); CLARITY,URINE CLEAR; COLOR,URINE YELLOW; GLUCOSE, URINE (UA) 1+ (NEGATIVE); KETONES,URINE NEGATIVE (NEGATIVE); LEUKOCYTE ESTERASE ,URINE NEGATIVE (NEGATIVE); NITRITE,URINE NEGATIVE (NEGATIVE); PH,URINE 5.5 (5-9); PROTEIN,URINE 1+ (NEGATIVE)
[2021-11-26 12:26] LABS: BACTERIA,URINE TRACE /HPF; RBC,URINE RARE /HPF; WBC,URINE 0-2 /HPF
[2021-11-26 12:27] LABS: AMORPHOUS SEDIMENT,UR FEW AMOR URATES /LPF; HYALINE CASTS, URINE 0-2 /LPF
[2021-11-26 12:32] LABS: AMPHETAMINE SCREEN, URINE NEGATIVE (NEGATIVE); BARBITURATE SCREEN URINE NEGATIVE (NEGATIVE); BENZODIAZEPINES SCREEN URINE POSITIVE (NEGATIVE); CANNABINOID SCREEN, URINE POSITIVE (NEGATIVE); COCAINE SCREEN URINE NEGATIVE (NEGATIVE); METHADONE STAT NEGATIVE (NEGATIVE); OPIATE SCREEN URINE NEGATIVE (NEGATIVE); OXYCODONE STAT NEGATIVE (NEGATIVE); PROPOXYPHENE STAT NEGATIVE (NEGATIVE); TRICYCLIC ANTIDEPRESSANTS SCRE NEGATIVE (NEGATIVE)
[2021-11-26 12:45] VITALS: BP 140/73
[2021-11-26] MEDS ORDERED: LIDOCAINE 2% VISCOUS 15 ML UDC PO ONE (12:45)
[2021-11-26] MEDS ORDERED: ANTACID SUSP 30 ML UDC (MYLANTA) PO ONE (12:45)
== END 2021-11-26 12:45 | disposition home or self-care (01) ==
LOC: EDUNIT# 11:08 → ER 11:09
DX: R11.2 Nausea with vomiting, unspecified (principal); E11.9 Type 2 diabetes mellitus without complications; G47.30 Sleep apnea, unspecified; F17.210 Nicotine dependence, cigarettes, uncomplicated; Z99.89 Dependence on other enabling machines and devices; Z79.4 Long term (current) use of insulin; Z86.79 Personal history of other diseases of the circulatory system; Z79.899 Other long term (current) drug therapy; Z28.310 Unvaccinated for COVID-19
CPT/HCPCS: 36415; 74176; 80053; 80306; 81000; 83690; 85007; 85027; 93005

== ENCOUNTER 2021-12-18 23:53 | Observation (INO) | payer MEDICARE ==
[~2021-12-18] VITALS: Ht 172.7 cm; Wt 61.7 kg
[~2021-12-18 23:53] MED LIST changes: +ONDA4TAB11 PO
[2021-12-19] VITALS (20 sets, daily range): BP systolic 90–159; BP diastolic 65–103
[2021-12-19] MEDS ORDERED: NS IV 1000 ML 1,000 ML IV SCH ×3 (00:30→03:00)
[2021-12-19] MEDS ORDERED: fentaNYL INJ 100 MCG/2 ML AMP IVP STA (00:59)
--- NOTE | 2021-12-19 01:08 | ED Fall/Injury ---
General Chief Complaint: Trauma-Non Activation Stated Complaint: FALL,R SHOULDER PAIN Nursing Triage Note: brought in by [facility] s/p fall from standing position approx. 2230. c/o right shoulder pain/bruising. Source: patient History of Present Illness Date Seen by Provider: Dec 18, 2021 Time Seen by Provider: 23:55 Initial Comments PT ARRIVES VIA EMS--NO IMMOBILIZATION OR TREATMENT BY EMS PT WAS AT A NEIGHBOR'S HOUSE--THEY WERE HAVING A COOKOUT--AND PT WAS CARRYING FOOD ACROSS THE YARD, AND GOT DIZZY AND FELL, LANDING ON HER RIGHT SHOULDER DENIES LOSS OF CONSCIOUSNESS/SYNCOPE OR HITTING HER HEAD C/O PAIN TO RIGHT SHOULDER C/O PAIN TO BACK OF NECK-MOSTLY ON THE RIGHT SIDE DENIES ANY OTHER INJURIES OR AREAS OF PAIN PT STATES SHE HAS BEEN DIZZY ALL EVENING, BUT HAS NOT EATEN THIS EVENING, STATES SHE IS DIABETIC AND THOUGHT IT WAS JUST BECAUSE SHE HAD NOT EATEN AND THOUGHT HER BLOOD SUGAR WAS LOW, BUT DID NOT CHECK HER BLOOD SUGAR, AND DID NOT ATTEMPT TO EAT ANYTHING. DOES NOT FEEL DIZZY NOW NO PARESTHESIAS OR MOTOR DEFICITS--PT HAS PERIPHERAL NEUROPATHY FROM DIABETES, AND IS UNCHANGED. 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 DOES USE THC REGULARLY, BUT DENIES USE TONIGHT. 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 NAIK Allergies and Home Medications Allergies Coded Allergies: Penicillins (Verified Allergy, Unknown, 12/15/15) Patient Home Medication List Home Medication List Reviewed: Yes Aspirin (Children's Aspirin) 81 Mg Tab.chew, 81 MG PO DAILY Prescribed by: LUAN PELAEZ on 08/25/21 08 Atorvastatin Calcium (Lipitor) 40 Mg Tablet, 40 MG PO HS Prescribed by: LUAN PELAEZ on 08/25/21811 Carvedilol (Carvedilol) 12.5 Mg Tablet, 12.5 MG PO BID, (Reported) Entered as Reported by: PRADEEP VICTOR on 08/24/21 09 Clopidogrel Bisulfate (Clopidogrel) 75 Mg Tablet, 75 MG PO DAILY Prescribed by: LUAN PELAEZ on 08/25/21811 Cyclobenzaprine HCl (Cyclobenzaprine HCl) 10 Mg Tablet, 10 MG PO HS PRN for MUSCLE SPASMS, (Reported) Entered as Reported by: JENNIFER BOOTHE on 09/11/20 1458 Furosemide (Furosemide) 20 Mg Tablet, 20 MG PO DAILY, (Reported) Entered as Reported by: PRADEEP VICTOR on 08/24/21 09 Ibuprofen (Ibuprofen) 600 Mg Tablet, 600 MG PO BID PRN for PAIN-MILD (1-4), (Reported) Entered as Reported by: PRADEEP VICTOR on 08/24/21 0943 Insulin Degludec (Tresiba Flextouch U-100) 100 Unit/1 Ml Insuln.pen, 70 UNIT SQ DAILY, (Reported) Entered as Reported by: PRADEEP VICTOR on 08/24/21 09 Levothyroxine Sodium (Levothyroxine Sodium) 100 Mcg Tablet, 100 MCG PO DAILY, (Reported) Entered as Reported by: JENNIFER BOOTHE on 07/16/21 1031 Lisinopril (Lisinopril) 20 Mg Tablet, 20 MG PO DAILY, (Reported) Entered as Reported by: PRADEEP VICTOR on 08/24/21 0946 Omeprazole/Sodium Bicarbonate (Zegerid 40 mg Capsule) 1 Each Capsule, 1 EACH PO BID PRN for HEARTBURN, (Reported) Entered as Reported by: PRADEEP VICTOR on 08/24/21 09 Ondansetron (Ondansetron Odt) 4 Mg Tab.rapdis, 4 MG PO Q6H PRN for NAUSEA/VOMITING Prescribed by: LANCE ELIAS on 11/26/21 1151 Potassium Chloride (Potassium Chloride) 10 Meq Tab.er.prt, 10 MEQ PO DAILY, (Reported) Entered as Reported by: PRADEEP VICTOR on 08/24/21 09 Review of Systems Review of Systems Constitutional: see HPI; No chills, No diaphoresis; dizziness; No fever Eyes: No Symptoms Reported Ears, Nose, Mouth, Throat: no symptoms reported Respiratory: no symptoms reported; No cough Cardiovascular: no symptoms reported; No chest pain, No edema, No palpitations, No syncope Gastrointestinal: no symptoms reported; No abdominal pain, No constipation, No diarrhea, No loss of appetite, No nausea, No vomiting Genitourinary: no symptoms reported Musculoskeletal: see HPI; No back pain; neck pain, other (RIGHT SHOULDER PAIN ) Skin: other (BRUISING TO RIGHT SHOULDER) Psychiatric/Neurological: See HPI (DIZZINESS); Denies Headache, Denies Numbness, Denies Paresthesia, Denies Seizure, Denies Tingling, Denies Tremors, Denies Weakness Past Vmyxlhv-Ovroso-Tzqbll Hx Patient Social History Tobacco Use?: Yes Tobacco type used: Cigarettes Smoking Status: Current Everyday Smoker Substance use?: Yes Substance type: Marijuana Substance frequency: Daily Alcohol Use?: Yes Pt feels they are or have been: No Immunizations Up To Date Tetanus Booster (TDap): Unknown PED Vaccines UTD: Yes Seasonal Allergies Seasonal Allergies: No Past Medical History Surgery/Hospitalization HX: c-sect x2, back, cholecystectomy, hysterectomy, benjamin, iddm, anxiety, depression, neuropathy Surgeries: Yes ( X 2; BACK SURGERY 08/24/20 DUE TO TRAUMA) Cardiac, Section, Coronary Stent, Gallbladder, Hysterectomy, Orthopedic Respiratory: Yes (SLEEP APNEA--STATES SHE DOES NOT HAVE CPAP, PER PT 12/19/21) Sleep Apnea Currently Using CPAP: No Cardiac: Yes (A-FIB; CHF; STENTS X 2) Atrial Fibrillation, Coronary Artery Disease, High Cholesterol, Hypertension, Irregular Heartbeat, Valvular Heart Disease Neurological: Yes 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, Menopausal Genitourinary: Yes (HAD ACUTE RENAL FAILURE/INSUFFICIENCY WHEN SHE FELL 08/20/20-NO DIALYSIS) Renal Failure Gastrointestinal: No Musculoskeletal: Yes (FALL 08/20/20-T12 BURST FX AND RIGHT WRIST FX) Chronic Back Pain, Fractures Endocrine: Yes (TYPE 2 ) Diabetes, Insulin dep, Hypothyroidsim HEENT: No Cancer: No Psychosocial: Yes Anxiety, Bipolar, Depression Integumentary: No Blood Disorders: No Family Medical History No Pertinent Family Hx SOCIAL HISTORY: -SMOKES 1 PPD -ETOH--NONE FOR 30 YEARS -DRUGS--SMOKES MARIJUANA ON REGULAR BASIS PAST SURGICAL HISTORY: - X 2 -CHOLECYSTECTOMY -HYSTERECTOMY/BILATERAL SALPINGO-OOPHORECTOMY -BACK SURGERY WITH RODS: PT FELL ON 08/20/20, HAD T12 BURST FRACTURE AND RIGHT WRIST FRACTURE AND WAS TRANSFERRED TO [facility] ON 08/24/20, PT HAD T12-L1 LAMINECTOMY AND BILATERAL DECOMPRESSION, AND T10-T11, T11-T12, T12-L1, L1-L2 POSTERIOR LATERAL FUSION USING MEDTRONIC PEDICLE SCREWS AND LOCAL BONE GRAFT BY DR. STEINER. -CARDIAC CATH WITH STENTS X 2 ON 08/24/[address] NAIK: CONCLUSIONS: 1. Coronary artery disease primarily consisting of distal occlusion of a codominant left circumflex and a long, up to 99% stenosis in the first obtuse marginal that was successfully stented with overlapping Skypoint 3.0 x 32 mm and Skypoint 3.0 x 12 mm stents with reduction of restenosis to 0% residual and improvement of flow from ZAHIRA 2 to ZAHIRA 3. The first diagonal branch, left anterior descending artery is of a small caliber and has 60% proximal stenosis. The rest of the vessels have diffuse mild to moderate plaque. 2. Well preserved global left ventricular systolic function. 3. Localized posterobasal akinesis. 4. Left ventricular end-diastolic pressure 12 mmHg. DISCUSSION AND RECOMMENDATIONS: She is being hospitalized for observation after this procedure. Dual antiplatelet therapy is being continued. She is on statin therapy that has been continued. We are also continuing her beta quentin and DANIA inhibitors. Further recommendation will be based on her hospital course. Physical Exam Vital Signs Vital Signs - First Documented 12/18/21 23:55 Temp 36.8 Pulse 79 Resp 16 B/P (MAP) 81/57 (65) Pulse Ox 97 O2 Delivery Room Air Capillary Refill : Less Than 3 Seconds Height, Weight, BMI Height: 5'7.00" Weight: 165lbs. 0.0oz. 74.002785mn; 19.00 BMI Method:Stated General Appearance: no apparent distress, thin (VERY THIN. ), other (REEKS OF CIGARETTES) HEENT: PERRL/EOMI, normal ENT inspection, TMs normal, pharynx normal Neck: tender lateral, tender midline Cardiovascular: normal peripheral pulses, regular rate, rhythm, no edema, no JVD, no murmur Respiratory: chest non-tender, normal breath sounds, no respiratory distress, no accessory muscle use Peripheral Pulses: 2+ Dorsalis Pedis (R), 2+ Left Dors-Pedis (L), 2+ Radial Pulses (R), 2+ Radial Pulses (L) Gastrointestinal: normal bowel sounds, non tender, soft, no pulsatile mass Back: no CVA tenderness, no vertebral tenderness Extremities: no pedal edema, no calf tenderness, normal capillary refill, other (TENDERNESS AND BRUISING TO RIGHT SHOULDER AND DISTAL CLAVICLEAREA. 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 ), other (NO EXTERNAL EVIDENCE OF TRAUMA ANYWHERE ELSE ON BODY) Procedures/Interventions Splinting and Joint Reduction : Immobilizers: Medium Shoulder Progress/Results/Core Measures Results/Orders Lab Results Laboratory Tests Test 12/18/21 23:57 12/19/21 02:20 Range/Units White Blood Count 11.8 H 4.3-11.0 10^3/uL Red Blood Count 3.83 3.80-5.11 10^6/uL Hemoglobin 12.1 11.5-16.0 g/dL Hematocrit 36 35-52 % Mean Corpuscular Volume 95 80-99 fL Mean Corpuscular Hemoglobin 32 25-34 pg Mean Corpuscular Hemoglobin Concent 33 32-36 g/dL Red Cell Distribution Width 12.5 10.0-14.5 % Platelet Count 274 130-400 10^3/uL Mean Platelet Volume 10.8 9.0-12.2 fL Immature Granulocyte % (Auto) 0 % Neutrophils (%) (Auto) 62 42-75 % Lymphocytes (%) (Auto) 28 12-44 % Monocytes (%) (Auto) 8 0-12 % Eosinophils (%) (Auto) 2 0-10 % Basophils (%) (Auto) 1 0-10 % Neutrophils # (Auto) 7.3 1.8-7.8 10^3/uL Lymphocytes # (Auto) 3.2 1.0-4.0 10^3/uL Monocytes # (Auto) 0.9 0.0-1.0 10^3/uL Eosinophils # (Auto) 0.2 0.0-0.3 10^3/uL Basophils # (Auto) 0.1 0.0-0.1 10^3/uL Immature Granulocyte # (Auto) 0.0 0.0-0.1 10^3/uL Sodium Level 136 135-145 MMOL/L Potassium Level 4.2 3.6-5.0 MMOL/L Chloride Level 97 L 98-107 MMOL/L Carbon Dioxide Level 26 21-32 MMOL/L Anion Gap 13 5-14 MMOL/L Blood Urea Nitrogen 22 H 7-18 MG/DL Creatinine 0.85 0.60-1.30 MG/DL Estimat Glomerular Filtration Rate 79 BUN/Creatinine Ratio 26 Glucose Level 216 H 70-105 MG/DL Calcium Level 9.8 8.5-10.1 MG/DL Corrected Calcium 9.8 8.5-10.1 MG/DL Magnesium Level 1.9 1.6-2.4 MG/DL Total Bilirubin 0.8 0.1-1.0 MG/DL Aspartate Amino Transf (AST/SGOT) 15 5-34 U/L Alanine Aminotransferase (ALT/SGPT) 23 0-55 U/L Alkaline Phosphatase 94 40-136 U/L Troponin I < 0.028 <0.028 NG/ML Total Protein 6.4 6.4-8.2 GM/DL Albumin 4.0 3.2-4.5 GM/DL Serum Alcohol < 10 <10 MG/DL Urine Color YELLOW Urine Clarity CLEAR Urine pH 5.0 5-9 Urine Specific [place] 1.010 L 1.016-1.022 Urine Protein NEGATIVE NEGATIVE Urine Glucose (UA) NEGATIVE NEGATIVE Urine Ketones NEGATIVE NEGATIVE Urine Nitrite NEGATIVE NEGATIVE Urine Bilirubin NEGATIVE NEGATIVE Urine Urobilinogen 0.2 < = 1.0 MG/DL Urine Leukocyte Esterase NEGATIVE NEGATIVE Urine RBC (Auto) NEGATIVE NEGATIVE Urine RBC NONE /HPF Urine WBC NONE /HPF Urine Squamous Epithelial Cells 2-5 /HPF Urine Crystals NONE /LPF Urine Bacteria NEGATIVE /HPF Urine Casts NONE /LPF Urine Mucus NEGATIVE /LPF Urine Culture Indicated NO Urine Opiates Screen NEGATIVE NEGATIVE Urine Oxycodone Screen NEGATIVE NEGATIVE Urine Methadone Screen NEGATIVE NEGATIVE Urine Propoxyphene Screen NEGATIVE NEGATIVE Urine Barbiturates Screen NEGATIVE NEGATIVE Ur Tricyclic Antidepressants Screen NEGATIVE NEGATIVE Urine Phencyclidine Screen NEGATIVE NEGATIVE Urine Amphetamines Screen NEGATIVE NEGATIVE Urine Methamphetamines Screen NEGATIVE NEGATIVE Urine Benzodiazepines Screen POSITIVE H NEGATIVE Urine Cocaine Screen NEGATIVE NEGATIVE Urine Cannabinoids Screen POSITIVE H NEGATIVE My Orders Orders - ELVIN JEAN BAPTISTE DO Ct Head/Cervical Spine Wo (12/19/21 00:04) Chest 1 View, Ap/Pa Only (12/19/21 00:04) Shoulder, Right, 3 Views (12/19/21 00:04) Cervical Collar (12/19/21 00:05) Ed Iv/Invasive Line Start (12/19/21 00:30) Ed Iv/Invasive Line Start (12/19/21 00:30) Ns Iv 1000 Ml (Sodium Chloride 0.9%) (12/19/21 00:30) Shoulder Immoblizer (12/19/21 00:59) Fentanyl Inj (Sublimaze Injection) (12/19/21 00:59) Alcohol (12/19/21 01:04) Cbc With Automated Diff (12/19/21 01:04) Comprehensive Metabolic Panel (12/19/21 01:04) Magnesium (12/19/21 01:04) Troponin I Abhijeet (12/19/21 01:04) Ed Iv/Invasive Line Start (12/19/21 01:04) Ns Iv 1000 Ml (Sodium Chloride 0.9%) (12/19/21 01:15) Ekg Tracing (12/19/21 01:48) Drug Screen Stat (Urine) (12/19/21 02:36) Ua Culture If Indicated (12/19/21 02:36) Ed Iv/Invasive Line Start (12/19/21 02:51) Ns Iv 1000 Ml (Sodium Chloride 0.9%) (12/19/21 03:00) Vital Signs/I&O 12/18/21 23:55 Temp 36.8 Pulse 79 Resp 16 B/P (MAP) 81/57 (65) Pulse Ox 97 O2 Delivery Room Air Blood Pressure Mean: 65 Progress Progress Note : Progress Note GIVEN IV FLUIDS--PT CONTINUES TO REMAIN HYPOTENSIVE, NO TACHYCARDIA OR BRADYCARDIA OR ARRHYTHMIA PT IS COMPLETELY ASYMPTOMATIC PT REMAINS ADAMANT THAT SHE DID NOT TAKE EXTRA MEDICATIONS TODAY AND DENIES USING MARIJUANA TODAY OR ANY OTHER DRUGS OR ANY ALCOHOL UNABLE TO FIND A CAUSE OTHER THAN POSSIBLE MILD DEHYDRATION NO EVIDENCE OF SEPSIS NO CARDIAC ABNORMALITIES ON TELEMETRY/EKG OR CARDIAC LAB, AND NO CARDIAC SYMPTOMS DURING ER STAY NO SHORTNESS OF BREATH OR DYSPNEA OR TACHYPNEA NO GI SYMPTOMS NO NEUROLOGICAL SYMPTOMS AND DID NOT COMPLAIN OF NECK PAIN AT ANY OTHER TIME DURING REMAINDER OF ER STAY EVENTUALLY GAVE FENTANYL X 1 DOSE FOR PAIN, BUT THIS DID NOT CHANGE HER BLOOD PRESSURE PT HAD NO ARRHYTHMIAS, NO DYSPNEA, NO CHEST PAIN, NO DIAPHORESIS OR ANY OTHER SYMPTOMS OF ANY KIND DURING ER STAY PT HAD O2 SATS 96-98% ON ROOM AIR WHILE AWAKE, BUT BECAME HYPOXIC WITH O2 SATS 79-81% ON ROOM AIR WHILE ASLEEP WITH SOME SNORING ( THIS WAS PRIOR TO BEING GIVEN ANY PAIN MEDICATIONS). PT EASILY AWAKENS AND O2 SATS BACK UP TO MID 90'S. PLACED ON O2 AT 4L/NC FOR REMAINDER OF ER STAY AND O2 SATS REMAINED IN 90'S WHILE SLEEPING QUESTIONED PT A COUPLE OF TIMES ABOUT THIS, AND SHE DOES ADMIT THAT SHE HAS BEEN DX WITH SLEEP APNEA IN THE PAST, WHEN I QUESTIONED HER ABOUT A CPAP MACHINE, SHE STATES SHE HAS NEVER BEEN EVALUATED FOR ONE AND NEVER PRESCRIBED ONE ( OLD RECORDS LIST THAT SHE USED A CPAP--PT CONTINUES TO DENY THIS TODAY, AND IS ADAMANT AT THIS TIME, THAT SHE HAS NEVER HAD A CPAP) BP 107/70, HR IN 70'S IN NSR, O2 SAT 100% WHILE AWAKE--AT TIME OF ADMIT. Initial ECG Impression Date: Dec 19, 2021 Initial ECG Impression Time: 01:49 Initial ECG Rate: 72 Initial ECG Rhythm: Normal Sinus Diagnostic Imaging Comments CXR--NO ACUTE PROCESS IN CHEST, PENDING RADIOLOGIST REVIEW RIGHT SHOULDER XRAYS--COMMINUTED DISPLACED DISTAL CLAVICLE FRACTURE, PENDING RADIOLOGIST REVIEW. CT HEAD/CERVICAL SPINE--PER [facility] VIA FAX AT 0110 Reviewed: Reviewed by Me Departure Communication (Admissions) 0255--SPOKE WITH DR. WINTERS, HOSPITALIST FOR [facility]. ACCEPTS PT FOR ADMIT. WILL CONSULT CARDIOLOGY AND ORTHOPEDIC SURGERY IN AM. 0306--REPORT GIVEN TO E-ICU PHYSICIAN. NO ADDITIONAL RECOMMENDATIONS Impression Primary Impression: Hypotension Additional Impressions: Right clavicle fracture HX OF CAD WITH STENTS HX OF INTERMITTENT ATRIAL FIBRILLATION SLEEP APNEA WITH HYPOXIA IDDM (insulin dependent diabetes mellitus) Mild dehydration Disposition: ADMITTED INPATIENT Condition: Stable Admissions Decision to Admit Reason: Admit from ER (General) Decision to Admit/Date: Dec 19, 2021 Time/Decision to Admit Time: 03:00 Departure-Patient Inst. Referrals: NO,LOCAL PHYSICIAN (PCP/Family) Primary Care Physician ELVIN JEAN BAPTISTE DO Dec 19, 2021 01:08
[2021-12-19 01:09] LABS: BASOPHILS # (AUTO) 0.1 10^3/uL (0.0-0.1); BASOPHILS % (AUTO) 1 % (0-10); EOSINOPHILS # (AUTO) 0.2 10^3/uL (0.0-0.3); EOSINOPHILS % (AUTO) 2 % (0-10); HEMATOCRIT 36 % (35-52); HEMOGLOBIN 12.1 g/dL (11.5-16.0); LYMPHOCYTES # (AUTO) 3.2 10^3/uL (1.0-4.0); LYMPHOCYTES % (AUTO) 28 % (12-44); MEAN CORPUSCULAR HEMOGLOBIN 32 pg (25-34); MEAN CORPUSCULAR HGB CONC 33 g/dL (32-36); MEAN CORPUSCULAR VOLUME 95 fL (80-99); MEAN PLATELET VOLUME 10.8 fL (9.0-12.2); MONOCYTES # (AUTO) 0.9 10^3/uL (0.0-1.0); MONOCYTES % (AUTO) 8 % (0-12); NEUTROPHILS # (AUTO) 7.3 10^3/uL (1.8-7.8); NEUTROPHILS % (AUTO) 62 % (42-75); PLATELET COUNT 274 10^3/uL (130-400); WHITE BLOOD COUNT 11.8 10^3/uL (4.3-11.0)
[2021-12-19 01:24] LABS: ALANINE AMINOTRANSFERASE 23 U/L (0-55); ALKALINE PHOSPHATASE 94 U/L (40-136); BILIRUBIN,TOTAL 0.8 MG/DL (0.1-1.0); BUN/CREATININE RATIO 26; CALCIUM 9.8 MG/DL (8.5-10.1); CARBON DIOXIDE 26 MMOL/L (21-32); CHLORIDE 97 MMOL/L (98-107); CREATININE SERUM 0.85 MG/DL (0.60-1.30); GFR ESTIMATED 79; GLUCOSE 216 MG/DL (70-105); MAGNESIUM 1.9 MG/DL (1.6-2.4); POTASSIUM 4.2 MMOL/L (3.6-5.0); SODIUM 136 MMOL/L (135-145); TOTAL PROTEIN 6.4 GM/DL (6.4-8.2)
[2021-12-19 02:41] LABS: BILIRUBIN,URINE NEGATIVE (NEGATIVE); CLARITY,URINE CLEAR; COLOR,URINE YELLOW; GLUCOSE, URINE (UA) NEGATIVE (NEGATIVE); KETONES,URINE NEGATIVE (NEGATIVE); LEUKOCYTE ESTERASE ,URINE NEGATIVE (NEGATIVE); NITRITE,URINE NEGATIVE (NEGATIVE); PROTEIN,URINE NEGATIVE (NEGATIVE)
[2021-12-19 02:47] LABS: BACTERIA,URINE NEGATIVE /HPF
[2021-12-19 02:53] LABS: AMPHETAMINE SCREEN, URINE NEGATIVE (NEGATIVE); BARBITURATE SCREEN URINE NEGATIVE (NEGATIVE); BENZODIAZEPINES SCREEN URINE POSITIVE (NEGATIVE); CANNABINOID SCREEN, URINE POSITIVE (NEGATIVE); COCAINE SCREEN URINE NEGATIVE (NEGATIVE); METHADONE STAT NEGATIVE (NEGATIVE); OPIATE SCREEN URINE NEGATIVE (NEGATIVE); OXYCODONE STAT NEGATIVE (NEGATIVE); PROPOXYPHENE STAT NEGATIVE (NEGATIVE); TRICYCLIC ANTIDEPRESSANTS SCRE NEGATIVE (NEGATIVE)
--- NOTE | 2021-12-19 04:01 | Tele-ICU Consult ---
History of Present Illness History of Present Illness Date Seen by Provider: Dec 19, 2021 Time Seen by Provider: 03:47 History of Present Illness 61 yo F fell after became lightheaded and fractured right distal clavicle, says no LOC, Hx of IDDM, glu was 200. Initial BP was 81/57 has been getting 3 l of IVF which improved BP Hx of CAD with 2 stents, also Hx of pAF and is on Plavix which has been taking, Also has Hx of ANALISA, not on CPAP, SpO2 does drop into 70's when sleeps, also HLD, HTN, CHF IDDM Daily user of cigaretees and [facility] Previous fall 09/09 with right wrist Fx Lab is basically normal, trop normal, Cr/BUN normal, LFT's normal, EtOH level < 10, EKG ok, CXR CT head looks ok, CXR shows mild hyperinflation Has Fx of distal rigth clavicle UDS + for cannibinoids and BDZ's Allergies and Home Medications Allergies Coded Allergies: Penicillins (Verified Allergy, Unknown, 12/15/15) Home Medications Aspirin 81 Mg Tab.chew, 81 MG PO DAILY Prescribed by: LUAN PELAEZ on 08/25/21811 Atorvastatin Calcium 40 Mg Tablet, 40 MG PO HS Prescribed by: LUAN PELAEZ on 08/25/21811 Carvedilol 12.5 Mg Tablet, 12.5 MG PO BID, (Reported) Clopidogrel Bisulfate 75 Mg Tablet, 75 MG PO DAILY Prescribed by: LUAN PELAEZ on 08/25/21811 Cyclobenzaprine HCl 10 Mg Tablet, 10 MG PO HS PRN for MUSCLE SPASMS, (Reported) Furosemide 20 Mg Tablet, 20 MG PO DAILY, (Reported) Ibuprofen 600 Mg Tablet, 600 MG PO BID PRN for PAIN-MILD (1-4), (Reported) Insulin Degludec 100 Unit/1 Ml Insuln.pen, 70 UNIT SQ DAILY, (Reported) Levothyroxine Sodium 100 Mcg Tablet, 100 MCG PO DAILY, (Reported) Lisinopril 20 Mg Tablet, 20 MG PO DAILY, (Reported) Omeprazole/Sodium Bicarbonate 1 Each Capsule, 1 EACH PO BID PRN for HEARTBURN, (Reported) Ondansetron 4 Mg Tab.rapdis, 4 MG PO Q6H PRN for NAUSEA/VOMITING Prescribed by: LANCE ELIAS on 7/8/22 1151 Potassium Chloride 10 Meq Tab.er.prt, 10 MEQ PO DAILY, (Reported) Past Medical/Social/Family Hx Patient Social History Tobacco Use?: Yes Tobacco type used: Cigarettes Smoking Status: Current Everyday Smoker Substance use?: Yes Substance type: Marijuana Substance frequency: Daily Alcohol Use?: Yes Pt stated abuse/neglect: No Immunizations Up To Date Tetanus Booster (TDap): Unknown Hepatitis A: No Hepatitis B: No Current Status status: No Advance Directives: No Communicates: Verbally Primary Language: [place] Preferred Spoken Language: [place] Is interpretation needed?: No Implanted or Applied Medical D: None Past Medical History DM HTN Palpitations HLP OAB Anemia CRI Family Medical History Family Hx: SOCIAL HISTORY: -SMOKES 1 PPD -ETOH--NONE FOR 30 YEARS -DRUGS--SMOKES MARIJUANA ON REGULAR BASIS PAST SURGICAL HISTORY: - X 2 -BACK SURGERY WITH RODS -HYSTERECTOMY/BILATERAL SALPINGO-OOPHORECTOMY PT FELL ON 08/20/20, HAD T12 BURST FRACTURE AND RIGHT WRIST FRACTURE AND WAS TRANSFERRED TO [facility] ON 08/24/20, PT HAD T12-L1 LAMINECTOMY AND BILATERAL DECOMPRESSION, AND T10-T11, T11-T12, T12-L1, L1-L2 POSTERIOR LATERAL FUSION USING [employer] PEDICLE SCREWS AND LOCAL BONE GRAFT BY DR. STEINER. Review of Systems Constitutional: see HPI EENTM: see HPI Respiratory: see HPI Cardiovascular: see HPI Gastrointestinal: see HPI Genitourinary: see HPI Musculoskeletal: see HPI Skin: see HPI Psychiatric/Neurological: See HPI Focused Exam Height, Weight, BMI Height: 5'7.00" Weight: 165lbs. 0.0oz. 74.742530nt; 19.00 BMI Method:Stated Exam Exam Patient acknowledged, consented, and participated in this virtual visit which was conducted using real time audio/video Vital Signs Date Time Temp Pulse Resp B/P (MAP) Pulse Ox O2 Delivery O2 Flow Rate FiO2 12/18/21 23:55 36.8 79 16 81/57 (65) 97 Room Air I & O 12/19/21 07:00 Intake Total 2000 ml Balance 2000 ml Height & Weight Height: 5'7.00" Weight: 165lbs. 0.0oz. 74.904346og; 19.00 BMI Method:Stated General Appearance: No Apparent Distress HEENT: PERRL/EOMI, TMs Normal, Normal ENT Inspection Respiratory: Lungs Clear Cardiovascular: Regular Rate, Rhythm Capillary Refill: Less Than 3 Seconds Peripheral Pulses: 2+ Dorsalis Pedis (R), 2+ Left Dors-Pedis (L), 2+ Radial Pulses (R), 2+ Radial Pulses (L) Gastrointestinal: normal bowel sounds, non tender, soft, no pulsatile mass Extremity: Normal Capillary Refill Results Lab Laboratory Tests 12/18/21 23:57 Assessment/Plan Assessment/Plan Episode of dizziness which lead to fall and clavicular Fx, will observe in MICU, May need to wear extended Holter, to be seen by cardiology and ortho Critical Care: Critically Ill Patient Time spent with patient (mins): 30 BOBBY ARREGUIN MD Dec 19, 2021 04:01
[2021-12-19] MEDS ORDERED: 1/2 NS W/KCL 20 MEQ/L 1,000 ML IV ONE (04:04)
[2021-12-19] MEDS: 1/2 NS W/KCL 20 MEQ/L 1,000 ML IV SCH ×3 (04:48→16:13)
[2021-12-19 05:34] LABS: BASOPHILS # (AUTO) 0.1 10^3/uL (0.0-0.1); BASOPHILS % (AUTO) 1 % (0-10); EOSINOPHILS # (AUTO) 0.3 10^3/uL (0.0-0.3); EOSINOPHILS % (AUTO) 2 % (0-10); HEMATOCRIT 35 % (35-52); HEMOGLOBIN 11.9 g/dL (11.5-16.0); LYMPHOCYTES # (AUTO) 3.9 10^3/uL (1.0-4.0); LYMPHOCYTES % (AUTO) 35 % (12-44); MEAN CORPUSCULAR HEMOGLOBIN 32 pg (25-34); MEAN CORPUSCULAR HGB CONC 34 g/dL (32-36); MEAN CORPUSCULAR VOLUME 96 fL (80-99); MEAN PLATELET VOLUME 10.4 fL (9.0-12.2); MONOCYTES # (AUTO) 0.9 10^3/uL (0.0-1.0); MONOCYTES % (AUTO) 8 % (0-12); NEUTROPHILS # (AUTO) 6.1 10^3/uL (1.8-7.8); NEUTROPHILS % (AUTO) 54 % (42-75); PLATELET COUNT 236 10^3/uL (130-400); WHITE BLOOD COUNT 11.3 10^3/uL (4.3-11.0)
[2021-12-19 05:54] LABS: ALANINE AMINOTRANSFERASE 20 U/L (0-55); ALBUMIN 3.3 GM/DL (3.2-4.5); ALKALINE PHOSPHATASE 92 U/L (40-136); BILIRUBIN,TOTAL 0.5 MG/DL (0.1-1.0); BUN/CREATININE RATIO 24; CALCIUM 8.5 MG/DL (8.5-10.1); CARBON DIOXIDE 22 MMOL/L (21-32); CHLORIDE 108 MMOL/L (98-107); CREATININE SERUM 0.68 MG/DL (0.60-1.30); GFR ESTIMATED 100; GLUCOSE 170 MG/DL (70-105); MAGNESIUM 1.6 MG/DL (1.6-2.4); PHOSPHORUS 3.4 MG/DL (2.3-4.7); POTASSIUM 3.8 MMOL/L (3.6-5.0); SODIUM 140 MMOL/L (135-145); TOTAL PROTEIN 5.4 GM/DL (6.4-8.2)
[2021-12-19] MEDS: inSUlin ASPART (NovoLOG) 1 UNIT/0.01 ML (CHARGE PER UNIT) SC SCH ×4 (05:57→20:12)
--- NOTE | 2021-12-19 06:07 | History & Physical-Hospitalist ---
History of Present Illness HPI/Chief Complaint CC: Hypotension with clavicle fracture HPI: This is a 61-year-old female who sustained a fall at home resulting in a cl avicle fracture but was found to be hypotensive of uncertain source. She was given aggressive IV fluid in the ER without resolution so the decision was made to move to the ICU for continued fluid resuscitation and pain control. No evidence of any sepsis. Source: patient, RN/MD Exam Limitations: clinical condition Date Seen 12/19/21 Time Seen by a Provider: 06:00 Attending Physician No,Local Physician PCP Admitting Physician: Coco Degorot DO Attending Physician: Coco Degroot DO Referring Physician Date of Admission Dec 19, 2021 at 03:00 Home Medications & Allergies Home Medications Reviewed patient Home Medication Reconciliation performed by pharmacy medication reconciliations bioinformatics technician and/or nursing. Patients Allergies have been reviewed. Allergies Allergies Coded Allergies Penicillins (Verified Allergy, Unknown, 12/15/15) Past Ezgqzrg-Kvadwl-Nkjwax Hx Patient Social History Marrital Status: single Employed/Student: unemployed Tobacco Use?: Yes Tobacco type used: Cigarettes Smoking Status: Current Everyday Smoker Use of E-Cig and/or Vaping dev: No E-Cig or Vaping type used: Marijuana Substance use?: Yes Substance type: Barbiturates, Marijuana Substance frequency: Daily Alcohol Use?: No Pt feels they are or have been: No Immunizations Up To Date Tetanus Booster (TDap): Unknown Hepatitis A: No Hepatitis B: No PED Vaccines UTD: Yes Seasonal Allergies Seasonal Allergies: No Current Status status: No status: No Advance Directives: No Communicates: Verbally Primary Language: [place] Preferred Spoken Language: [place] Is interpretation needed?: No Sensory deficits: Vision impairment Implanted or Applied Medical D: None Past Medical History Surgeries: Cardiac, Section, Coronary Stent, Gallbladder, Hysterecto my, Orthopedic Sleep Apnea Currently Using CPAP: No Atrial Fibrillation, Coronary Artery Disease, High Cholesterol, Hypertension, Irregular Heartbeat, Valvular Heart Disease Neuropathy 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 History: Hysterectomy, Menopausal Renal Failure Chronic Back Pain, Fractures Diabetes, Insulin dep, Hypothyroidsim Anxiety, Bipolar, Depression Blood Disorders: No DM HTN Palpitations HLP OAB Anemia CRI Family Medical History No Pertinent Family Hx SOCIAL HISTORY: -SMOKES 1 PPD -ETOH--NONE FOR 30 YEARS -DRUGS--SMOKES MARIJUANA ON REGULAR BASIS PAST SURGICAL HISTORY: - X 2 -CHOLECYSTECTOMY -HYSTERECTOMY/BILATERAL SALPINGO-OOPHORECTOMY -BACK SURGERY WITH RODS: PT FELL ON 08/20/20, HAD T12 BURST FRACTURE AND RIGHT WRIST FRACTURE AND WAS TRANSFERRED TO [facility] ON 08/24/20, PT HAD T12-L1 LAMINECTOMY AND BILATERAL DECOMPRESSION, AND T10-T11, T11-T12, T12-L1, L1-L2 POSTERIOR LATERAL FUSION USING [employer] PEDICLE SCREWS AND LOCAL BONE GRAFT BY DR. STEINER. -CARDIAC CATH WITH STENTS X [address] ON 08/24/[address] NAIK: CONCLUSIONS: 1. Coronary artery disease primarily consisting of distal occlusion of a codominant left circumflex and a long, up to 99% stenosis in the first obtuse marginal that was successfully stented with overlapping Skypoint 3.0 x 32 mm and Skypoint 3.0 x 12 mm stents with reduction of restenosis to 0% residual and improvement of flow from ZAHIRA 2 to ZAHIRA 3. The first diagonal branch, left anterior descending artery is of a small caliber and has 60% proximal stenosis. The rest of the vessels have diffuse mild to moderate plaque. 2. Well preserved global left ventricular systolic function. 3. Localized posterobasal akinesis. 4. Left ventricular end-diastolic pressure 12 mmHg. DISCUSSION AND RECOMMENDATIONS: She is being hospitalized for observation after this procedure. Dual antiplatelet therapy is being continued. She is on statin therapy that has been continued. We are also continuing her beta quentin and DANIA inhibitors. Further recommendation will be based on her hospital course. Review of Systems Constitutional: see HPI, dizziness, malaise, weakness EENTM: no symptoms reported Respiratory: no symptoms reported Cardiovascular: no symptoms reported Gastrointestinal: no symptoms reported Genitourinary: no symptoms reported Musculoskeletal: see HPI Skin: no symptoms reported Psychiatric/Neurological: No Symptoms Reported All Other Systems Reviewed Negative Unless Noted: Yes Physical Exam Physical Exam Vital Signs Vital Signs - First Documented 12/18/21 12/19/21 23:55 03:45 Temp 36.8 Pulse 79 Resp 16 B/P (MAP) 81/57 (65) Pulse Ox 97 O2 Delivery Room Air O2 Flow Rate 2.00 Capillary Refill : Less Than 3 Seconds Height, Weight, BMI Height: 5'7.00" Weight: 165lbs. 0.0oz. 74.165633mb; 22.69 BMI Method:Stated General Appearance: No Apparent Distress, Chronically ill Eyes: Right Eye Normal Inspection, Right Eye PERRL HEENT: PERRL/EOMI, Normal ENT Inspection, Pharynx Normal, Moist Mucous Membranes Neck: Full Range of Motion, Normal Inspection, Non Tender Respiratory: Chest Non Tender, Lungs Clear, Normal Breath Sounds, No Accessory Muscle Use, No Respiratory Distress Cardiovascular: Regular Rate, Rhythm, No Edema, No Gallop, No JVD, No Murmur, Normal Peripheral Pulses Gastrointestinal: Normal Bowel Sounds, No Organomegaly, No Pulsatile Mass, Non Tender, Soft Back: Normal Inspection, No CVA Tenderness, No Vertebral Tenderness Extremity: Normal Capillary Refill, Normal Inspection, Normal Range of Motion (Except for right arm), Non Tender, No Calf Tenderness, No Pedal Edema Neurologic/Psychiatric: Alert, Oriented x3, No Motor/Sensory Deficits, Normal Mood/Affect Skin: Normal Color, Warm/Dry Lymphatic: No Adenopathy Results Results/Procedures Labs Laboratory Tests 12/18/21 23:57 12/19/21 05:30 Patient resulted labs reviewed. Assessment/Plan Admission Diagnosis Assessment: Fall Hypotension of uncertain source Right clavicle fracture complex type Smoker Plan: ICU IV fluids Supportive care Pain control Admission Status: Observation Diagnosis/Problems Diagnosis/Problems (1) Hypotension Status: Acute (2) Mild dehydration Status: Acute (3) Right clavicle fracture Status: Acute COCO DEGROOT DO Dec 19, 2021 06:07
--- NOTE | 2021-12-19 06:33 | Diagnostic Imaging Report ---
EXAMINATION: Chest 1 view HISTORY: Chest pain after injury COMPARISON: 07/16/2021 FINDINGS: Heart size and pulmonary vasculature are normal. The lungs are clear without consolidation, pleural effusion, or pneumothorax. There is a mildly displaced fracture of the right clavicle. Surgical changes of the thoracolumbar spine. IMPRESSION: 1. Acute fracture of the right clavicle. 2. No other acute radiographic abnormality in the chest. Dictated by: Dictated on workstation # [id number]
--- NOTE | 2021-12-19 07:13 | Diagnostic Imaging Report ---
CLINICAL INDICATIONS: Patient is status post fall with shoulder pain. EXAM: X-ray right shoulder, 3 views. COMPARISON: None. FINDINGS AND IMPRESSION: 1: There is a comminuted displaced fracture involving the lateral aspect of the right clavicle with no intra-articular extension. There is roughly 5 mm of superior elevation of the medial aspect of the clavicular fracture. 2: There is no other fracture seen. 3: There are small degenerative spurs involving the right glenoid region. Dictated by: Dictated on workstation # [id number]
--- NOTE | 2021-12-19 07:31 | Diagnostic Imaging Report ---
Clinical indications: Patient status post fall, complains of right shoulder pain. Exam: Head CT without IV contrast with sagittal and coronal reformations. Axial CT scan of the cervical spine with sagittal and coronal reformations. Auto Exposure Controls were utilized during the CT exam to meet ALARA standards for radiation dose reduction. Comparison: CT scan of the head and cervical spine without contrast dated 09/09/2020. CT angiogram of the chest dated 07/15/2021. Findings: Head CT: There is no evidence of acute cerebral infarct, intracranial hemorrhage, or gross mass effect. The brain parenchymal volume appears appropriate for patient's age. There is normal nance-white matter distinction. There is no significant midline shift or herniation. There is no evidence of hydrocephalus. The basal cisterns are unremarkable. The skull, extracranial soft tissue, and orbits are unremarkable. There is mild mucosal thickening involving the sphenoid sinus. Temporal bones show no significant abnormality. Cervical spine: There is no acute cervical spine fracture or dislocation. There is a mild compression deformity involving the upper aspect of the T3 vertebra which demonstrates sclerosis with no cortical disruption and is suspected to be chronic. This is new compared to prior CT angiogram of the chest dated 07/15/2021. There are cervical spine vertebral body spurs. There is no significant neck soft tissue abnormality. Visualized upper lung camp are clear. Impression: 1: There is no evidence of acute intracranial process. There is no skull fracture. 2: There is no acute cervical spine fracture. 3: There is interval development of a chronic-appearing compression deformity of the upper aspect of T3 vertebra. I agree with [facility] report. Dictated by: Dictated on workstation # [id number]
--- NOTE | 2021-12-19 07:52 | Tele-ICU Progress Note ---
Progress Note video rounds completed 61 y/o f admitted after a fall and fxed right clavicle Was hypotensive in the 80s, but now resolved after fluids Has hx of tobacco and marihuana usage. PE: this am looks improved up to bathroom with assistance Focused Exam Height, Weight, BMI Height: 5'7.00" Weight: 165lbs. 0.0oz. 74.575559bz; 22.69 BMI Method:Stated Labs Laboratory Tests 12/18/21 23:57 12/19/21 05:30 Results Results/Procedures Lab Laboratory Tests 12/18/21 23:57 12/19/21 05:30 Results Labs Labs Laboratory Tests 12/18/21 23:57: White Blood Count 11.8H, Red Blood Count 3.83, Hemoglobin 12.1, Hematocrit 36, Mean Corpuscular Volume 95, Mean Corpuscular Hemoglobin 32, Mean Corpuscular Hemoglobin Concent 33, Red Cell Distribution Width 12.5, Platelet Count 274, Mean Platelet Volume 10.8, Immature Granulocyte % (Auto) 0, Neutrophils (%) (Auto) 62, Lymphocytes (%) (Auto) 28, Monocytes (%) (Auto) 8, Eosinophils (%) (Auto) 2, Basophils (%) (Auto) 1, Neutrophils # (Auto) 7.3, Lymphocytes # (Auto) 3.2, Monocytes # (Auto) 0.9, Eosinophils # (Auto) 0.2, Basophils # (Auto) 0.1, Immature Granulocyte # (Auto) 0.0, Sodium Level 136, Potassium Level 4.2, Chloride Level 97L, Carbon Dioxide Level 26, Anion Gap 13, Blood Urea Nitrogen 22H, Creatinine 0.85, Estimat Glomerular Filtration Rate 79, BUN/Creatinine Ratio 26, Glucose Level 216H, Calcium Level 9.8, Corrected Calcium 9.8, Magnesium Level 1.9, Total Bilirubin 0.8, Aspartate Amino Transf (AST/SGOT) 15, Alanine Aminotransferase (ALT/SGPT) 23, Alkaline Phosphatase 94, Troponin I < 0.028, Total Protein 6.4, Albumin 4.0, Serum Alcohol < 10 12/19/21 02:20: Urine Color YELLOW, Urine Clarity CLEAR, Urine pH 5.0, Urine Specific [place] 1.010L, Urine Protein NEGATIVE, Urine Glucose (UA) NEGATIVE, Urine Ketones NEGATIVE, Urine Nitrite NEGATIVE, Urine Bilirubin NEGATIVE, Urine Urobilinogen 0.2, Urine Leukocyte Esterase NEGATIVE, Urine RBC (Auto) NEGATIVE, Urine RBC NONE, Urine WBC NONE, Urine Squamous Epithelial Cells 2-5, Urine Crystals NONE, Urine Bacteria NEGATIVE, Urine Casts NONE, Urine Mucus NEGATIVE, Urine Culture Indicated NO, Urine Opiates Screen NEGATIVE, Urine Oxycodone Screen NEGATIVE, Urine Methadone Screen NEGATIVE, Urine Propoxyphene Screen NEGATIVE, Urine Barbiturates Screen NEGATIVE, Ur Tricyclic Antidepressants Screen NEGATIVE, Urine Phencyclidine Screen NEGATIVE, Urine Amphetamines Screen NEGATIVE, Urine Methamphetamines Screen NEGATIVE, Urine Benzodiazepines Screen POSITIVEH, Urine Cocaine Screen NEGATIVE, Urine Cannabinoids Screen POSITIVEH 12/19/21 03:38: Troponin I < 0.028 12/19/21 05:30: White Blood Count 11.3H, Red Blood Count 3.70L, Hemoglobin 11.9, Hematocrit 35, Mean Corpuscular Volume 96, Mean Corpuscular Hemoglobin 32, Mean Corpuscular Hemoglobin Concent 34, Red Cell Distribution Width 12.4, Platelet Count 236, Mean Platelet Volume 10.4, Immature Granulocyte % (Auto) 0, Neutrophils (%) (Auto) 54, Lymphocytes (%) (Auto) 35, Monocytes (%) (Auto) 8, Eosinophils (%) (Auto) 2, Basophils (%) (Auto) 1, Neutrophils # (Auto) 6.1, Lymphocytes # (Auto) 3.9, Monocytes # (Auto) 0.9, Eosinophils # (Auto) 0.3, Basophils # (Auto) 0.1, Immature Granulocyte # (Auto) 0.0, Sodium Level 140, Potassium Level 3.8, Chloride Level 108H, Carbon Dioxide Level 22, Anion Gap 10, Blood Urea Nitrogen 16, Creatinine 0.68, Estimat Glomerular Filtration Rate 100, BUN/Creatinine Ratio 24, Glucose Level 170H, Calcium Level 8.5, Corrected Calcium 9.1, Mag nesium Level 1.6, Total Bilirubin 0.5, Aspartate Amino Transf (AST/SGOT) 14, Alanine Aminotransferase (ALT/SGPT) 20, Alkaline Phosphatase 92, Troponin I < 0.028, Total Protein 5.4L, Albumin 3.3, Phosphorus Level 3.4 BOBBY ORTIZ MD Dec 19, 2021 07:52
[2021-12-19] MEDS: fentaNYL INJ 100 MCG/2 ML AMP IVP PRN ×4 (07:57→21:48)
[2021-12-19] MEDS ORDERED: ASPI81TA64 PO (09:53)
--- NOTE | 2021-12-19 11:52 | Consultation-Cardiology ---
HPI-Cardiology Cardiology Consultation Date of Consultation 12/19/21 Date of Admission Time Seen by Provider: 11:46 Indication: Hypotension HPI 61-year-old lady with history of coronary artery disease, hypertension, hyperlipidemia and diabetes mellitus. Sustained a fall after feeling lightheaded and dizzy. Resulted in right clavicular fracture. Reporting that she has been having multiple episodes of dizziness and multiple falls in the past. Sustained an injury to her back in the past. She denied any chest pain other than pain from the trauma. No shortness of breath. No palpitation. Has history of sleep apnea and not using CPAP. Active smoker and working on smoking cessation. Home Medications & Allergies Allergies: Coded Allergies: Penicillins (Verified Allergy, Unknown, 12/15/15) Home Medication List Reviewed: Yes [id number] Hx Patient Social History Marital Status: Employed/Student: employed Drug of Choice: MARIJUANA Smoking Status: Current Everyday Smoker Type Used: Cigarettes Recent Hopitalizations: No Have you traveled recently?: No Alcohol Use?: No Substance type: Barbiturates, Marijuana Immunizations Up To Date Tetanus Booster (TDap): Unknown Past Medical History Discussed below Family Medical History Significant Family History: No Pertinent Family Hx Family Medical Hx Noncontributory Review of Systems-General Review of Systems Constitutional: see HPI; No chills, No diaphoresis; dizziness; No fever; malaise EENTM: see HPI Respiratory: no symptoms reported; No cough Cardiovascular: see HPI, chest pain; No edema, No Hx of Intervention, No palpitations; syncope; No vascular heart diseas, No other Gastrointestinal: no symptoms reported; No abdominal pain, No constipation, No diarrhea, No loss of appetite, No nausea, No vomiting Genitourinary: no symptoms reported Musculoskeletal: see HPI; No back pain; neck pain, other (RIGHT SHOULDER PAIN ) Skin: other (BRUISING TO RIGHT SHOULDER) Psychiatric/Neurological: See HPI (DIZZINESS); Denies Headache, Denies Numbness, Denies Paresthesia, Denies Seizure, Denies Tingling, Denies Tremors, Denies Weakness Reviewed Test Results Reviewed Test Results Lab Laboratory Tests Test 12/18/21 23:57 12/19/21 02:20 12/19/21 03:38 12/19/21 05:30 Range/Units White Blood Count 11.8 H 11.3 H 4.3-11.0 10^3/uL Red Blood Count 3.83 3.70 L 3.80-5.11 10^6/uL Hemoglobin 12.1 11.9 11.5-16.0 g/dL Hematocrit 36 35 35-52 % Mean Corpuscular Volume 95 96 80-99 fL Mean Corpuscular Hemoglobin 32 32 25-34 pg Mean Corpuscular Hemoglobin Concent 33 34 32-36 g/dL Red Cell Distribution Width 12.5 12.4 10.0-14.5 % Platelet Count 274 236 130-400 10^3/uL Mean Platelet Volume 10.8 10.4 9.0-12.2 fL Immature Granulocyte % (Auto) 0 0 % Neutrophils (%) (Auto) 62 54 42-75 % Lymphocytes (%) (Auto) 28 35 12-44 % Monocytes (%) (Auto) 8 8 0-12 % Eosinophils (%) (Auto) 2 2 0-10 % Basophils (%) (Auto) 1 1 0-10 % Neutrophils # (Auto) 7.3 6.1 1.8-7.8 10^3/uL Lymphocytes # (Auto) 3.2 3.9 1.0-4.0 10^3/uL Monocytes # (Auto) 0.9 0.9 0.0-1.0 10^3/uL Eosinophils # (Auto) 0.2 0.3 0.0-0.3 10^3/uL Basophils # (Auto) 0.1 0.1 0.0-0.1 10^3/uL Immature Granulocyte # (Auto) 0.0 0.0 0.0-0.1 10^3/uL Sodium Level 136 140 135-145 MMOL/L Potassium Level 4.2 3.8 3.6-5.0 MMOL/L Chloride Level 97 L 108 H 98-107 MMOL/L Carbon Dioxide Level 26 22 21-32 MMOL/L Anion Gap 13 10 5-14 MMOL/L Blood Urea Nitrogen 22 H 16 7-18 MG/DL Creatinine 0.85 0.68 0.60-1.30 MG/DL Estimat Glomerular Filtration Rate 79 100 BUN/Creatinine Ratio 26 24 Glucose Level 216 H 170 H 70-105 MG/DL Calcium Level 9.8 8.5 8.5-10.1 MG/DL Corrected Calcium 9.8 9.1 8.5-10.1 MG/DL Magnesium Level 1.9 1.6 1.6-2.4 MG/DL Total Bilirubin 0.8 0.5 0.1-1.0 MG/DL Aspartate Amino Transf (AST/SGOT) 15 14 5-34 U/L Alanine Aminotransferase (ALT/SGPT) 23 20 0-55 U/L Alkaline Phosphatase 94 92 40-136 U/L Troponin I < 0.028 < 0.028 < 0.028 <0.028 NG/ML Total Protein 6.4 5.4 L 6.4-8.2 GM/DL Albumin 4.0 3.3 3.2-4.5 GM/DL Serum Alcohol < 10 <10 MG/DL Urine Color YELLOW Urine Clarity CLEAR Urine pH 5.0 5-9 Urine Specific [place] 1.010 L 1.016-1.022 Urine Protein NEGATIVE NEGATIVE Urine Glucose (UA) NEGATIVE NEGATIVE Urine Ketones NEGATIVE NEGATIVE Urine Nitrite NEGATIVE NEGATIVE Urine Bilirubin NEGATIVE NEGATIVE Urine Urobilinogen 0.2 < = 1.0 MG/DL Urine Leukocyte Esterase NEGATIVE NEGATIVE Urine RBC (Auto) NEGATIVE NEGATIVE Urine RBC NONE /HPF Urine WBC NONE /HPF Urine Squamous Epithelial Cells 2-5 /HPF Urine Crystals NONE /LPF Urine Bacteria NEGATIVE /HPF Urine Casts NONE /LPF Urine Mucus NEGATIVE /LPF Urine Culture Indicated NO Urine Opiates Screen NEGATIVE NEGATIVE Urine Oxycodone Screen NEGATIVE NEGATIVE Urine Methadone Screen NEGATIVE NEGATIVE Urine Propoxyphene Screen NEGATIVE NEGATIVE Urine Barbiturates Screen NEGATIVE NEGATIVE Ur Tricyclic Antidepressants Screen NEGATIVE NEGATIVE Urine Phencyclidine Screen NEGATIVE NEGATIVE Urine Amphetamines Screen NEGATIVE NEGATIVE Urine Methamphetamines Screen NEGATIVE NEGATIVE Urine Benzodiazepines Screen POSITIVE H NEGATIVE Urine Cocaine Screen NEGATIVE NEGATIVE Urine Cannabinoids Screen POSITIVE H NEGATIVE Phosphorus Level 3.4 2.3-4.7 MG/DL Test 12/19/21 11:31 Range/Units Glucometer 163 H 70-110 MG/DL Physical Exam Physical Exam Vital Signs Vital Signs - First Documented 12/18/21 12/19/21 23:55 03:45 Temp 36.8 Pulse 79 Resp 16 B/P (MAP) 81/57 (65) Pulse Ox 97 O2 Delivery Room Air O2 Flow Rate 2.00 Capillary Refill : Less Than 3 Seconds Height, Weight, BMI Height: 5'7.00" Weight: 165lbs. 0.0oz. 74.994598qa; 22.69 BMI Method:Stated General Appearance: No Apparent Distress Eyes: Bilateral Eye Normal Inspection, Bilateral Eye PERRL, Bilateral Eye EOMI HEENT: PERRL/EOMI, TMs Normal, Normal ENT Inspection Neck: Full Range of Motion, Normal Inspection, Non Tender, Supple, Carotid Bruit Respiratory: Lungs Clear Cardiovascular: Regular Rate, Rhythm Gastrointestinal: Normal Bowel Sounds, No Organomegaly, No Pulsatile Mass, Non Tender, Soft Back: Normal Inspection, No CVA Tenderness, No Vertebral Tenderness Extremity: Normal Capillary Refill Neurologic/Psychiatric: Alert, Oriented x3, No Motor/Sensory Deficits, Normal Mood/Affect Skin: Normal Color, Warm/Dry Lymphatic: No Adenopathy A/P-Cardiology Admission Diagnosis Hypotension Near syncope Coronary artery disease Hyperlipidemia Assessment/Plan Hypotension, symptomatic. Dizziness and near syncope with multiple falls. Probably has underlying autonomic dysfunction. Patient is maintained on Coreg 12.5 mg twice daily and lisinopril 20 mg daily. Probably contributing to her orthostatic hypotension and near syncope. I am discontinuing Coreg and decreasing lisinopril to 10 mg daily and add Toprol-XL 25 mg daily and evaluate tolerance and response Coronary artery disease, cardiac catheterization was carried out by Dr. Torres in August 2021 showing distal occlusion of a codominant circumflex artery with successful stenting with prabhakar point stent 3 x 32 mm and 3 x 12 mm in the obtuse marginal branch with excellent results. The first diagonal branch is a small artery with 60% stenosis, the rest of the vessel has diffuse mild to moderate disease. History of congestive heart failure, chronic compensated left ventricular diastolic dysfunction, preserved systolic function. Echocardiogram done in June 2021 showing ejection fraction 60 to 65%, grade 1 diastolic dysfunction, pulmonary artery pressure of 35 mmHg Hypertension with hypertensive heart disease, labile blood pressure. Difficult to control. I recommend maintaining her blood pressure is on the upper normal side to avoid episodes of dizziness and falling. Hyperlipidemia, started on statin in August 2021 Tobaccoism, active smoker, educated on smoking cessation Diabetes mellitus, followed and managed by primary care physician. Sleep apnea, not using CPAP History of fibromyalgia, scleroderma, Raynaud's disease. Chronic back pain, had back surgery done in August 2020. WADE LÓPEZ MD Dec 19, 2021 11:52
[2021-12-19] MEDS ORDERED: GABA800T10 PO (16:22)
--- NOTE | 2021-12-19 16:22 | CONSULTATION REPORT ---
DATE OF SERVICE: 12/19/2021 INPATIENT CONSULTATION REASON FOR CONSULTATION: Right clavicle fracture. HISTORY OF PRESENT ILLNESS: The patient is a 61-year-old female who fell and landed on her right shoulder. She was found to have a right distal clavicle fracture. I have reviewed her radiographs. This can be treated with a sling for comfort, and we will be happy to follow up as an outpatient. I relayed this to her nurse. Thank you for the consultation. Job ID: [id number] DocumentID: [id number] Dictated Date: 12/19/2021 08:51:00 Fret Saw Operator Date: 12/19/2021 16:21:34 Dictated By: BRENDEN BAZAN MD
[2021-12-19] MEDS ORDERED: BISACODYL 10 MG SUPP (DULCOLAX) PR PRN (20:15)
[2021-12-19] MEDS ORDERED: HYDROcodone/APAP 5 MG/325 MG (LORTAB) TAB PO PRN (20:15)
[2021-12-19] MEDS ORDERED: ONDANSETRON 4 MG (ZOFRAN) ORAL DISSOLVE TAB PO PRN (20:15)
[2021-12-19] MEDS ORDERED: MELATONIN 3 MG TABLET PO PRN (20:15)
[2021-12-19] MEDS ORDERED: DOCUSATE SODIUM 100 MG (COLACE) CAP PO PRN (20:15)
[2021-12-19] MEDS ORDERED: ALPRAZolam 0.25 MG (XANAX) TAB PO PRN (20:15)
[2021-12-19] MEDS ORDERED: CALCIUM CARBONATE 500 MG (TUMS) TAB.CHEW PO PRN (20:15)
[2021-12-19] MEDS ORDERED: ONDANSETRON 4 MG/2 ML (SDV) Z0FRAN IVP PRN (20:15)
[2021-12-19] MEDS ORDERED: diphenhydrAMINE 25 MG TAB (BENADRYL) PO PRN (20:15)
[2021-12-19] MEDS: SENNA W/DOCUSATE (SENOKOT S) TABLET PO SCH (22:45)
[2021-12-19] MEDS: polyethylene glycoL POWDER 17 GM (MIRALAX) PACK PO SCH (22:45)
[2021-12-19] MEDS: ENOXAPARIN 40 MG/0.4 ML (LOVENOX) SYR SC SCH (23:42)
[2021-12-20] VITALS: BP 109/71
[2021-12-20] MEDS: fentaNYL INJ 100 MCG/2 ML AMP IVP PRN (02:41)
[2021-12-20 04:20] VITALS: BP 109/71
[2021-12-20] MEDS: inSUlin ASPART (NovoLOG) 1 UNIT/0.01 ML (CHARGE PER UNIT) SC SCH ×4 (05:49→21:16)
[2021-12-20 05:58] LABS: BASOPHILS # (AUTO) 0.1 10^3/uL (0.0-0.1); BASOPHILS % (AUTO) 1 % (0-10); EOSINOPHILS # (AUTO) 0.2 10^3/uL (0.0-0.3); EOSINOPHILS % (AUTO) 1 % (0-10); HEMATOCRIT 46 % (35-52); HEMOGLOBIN 15.4 g/dL (11.5-16.0); LYMPHOCYTES # (AUTO) 2.9 10^3/uL (1.0-4.0); LYMPHOCYTES % (AUTO) 21 % (12-44); MEAN CORPUSCULAR HEMOGLOBIN 32 pg (25-34); MEAN CORPUSCULAR HGB CONC 34 g/dL (32-36); MEAN CORPUSCULAR VOLUME 94 fL (80-99); MEAN PLATELET VOLUME 10.8 fL (9.0-12.2); MONOCYTES # (AUTO) 0.9 10^3/uL (0.0-1.0); MONOCYTES % (AUTO) 6 % (0-12); NEUTROPHILS # (AUTO) 10.1 10^3/uL (1.8-7.8); NEUTROPHILS % (AUTO) 71 % (42-75); PLATELET COUNT 308 10^3/uL (130-400); WHITE BLOOD COUNT 14.2 10^3/uL (4.3-11.0)
[2021-12-20] MEDS: ONDANSETRON 4 MG/2 ML (SDV) Z0FRAN IVP PRN ×2 (06:02→21:26)
[2021-12-20 06:07] LABS: ALBUMIN 4.3 GM/DL (3.2-4.5); POTASSIUM 3.8 MMOL/L (3.6-5.0)
[2021-12-20 06:08] LABS: CALCIUM 9.7 MG/DL (8.5-10.1)
[2021-12-20 06:10] LABS: TOTAL PROTEIN 7.4 GM/DL (6.4-8.2)
[2021-12-20 06:13] LABS: CREATININE SERUM 0.66 MG/DL (0.60-1.30)
[2021-12-20 06:17] LABS: MAGNESIUM 1.6 MG/DL (1.6-2.4)
[2021-12-20] MEDS ORDERED: LORazepam 1 MG (ATIVAN) TAB ONE (06:20)
[2021-12-20 06:24] LABS: EOSINOPHILS % (MANUAL) 1 %; LYMPHOCYTES % (MANUAL) 18 %; MONOCYTES % (MANUAL) 4 %; NEUTROPHILS % (MANUAL) 77 %; RBC MORPH NORMAL
[2021-12-20] MEDS ORDERED: ONDANSETRON 4 MG (ZOFRAN) ORAL DISSOLVE TAB SL PRN (06:30)
[2021-12-20] MEDS ORDERED: D5 1/2 NS 1000 ML IV SOLUTION 1,000 ML IV PRN (06:30)
[2021-12-20] MEDS: LEVOTHYROXINE 100 MCG (LEVOTHROID) TAB PO SCH (06:30)
[2021-12-20] MEDS ORDERED: LORazepam 1 MG (ATIVAN) TAB PO PRN (06:30)
[2021-12-20] MEDS ORDERED: ANTACID SUSP 30 ML UDC (MYLANTA) PO PRN (06:30)
[2021-12-20] MEDS ORDERED: SENNA W/DOCUSATE (SENOKOT S) TABLET PO PRN (06:30)
[2021-12-20] MEDS ORDERED: ONDANSETRON 4 MG/2 ML (SDV) Z0FRAN IV PRN (06:30)
[2021-12-20] MEDS ORDERED: 1/2 NS IV SOLUTION 1,000 ML IV PRN (06:30)
[2021-12-20] MEDS: MULTIVIT W/MINERALS TAB (THERAGRAN M) PO SCH (06:34)
[2021-12-20] MEDS: THIAMINE 100 MG (VITAMIN B-1) TAB PO SCH (06:34)
[2021-12-20] MEDS: KCL 10 MEQ TAB (MICRO K) PO SCH (07:00)
[2021-12-20 07:39] VITALS: BP 133/98
[2021-12-20] MEDS: polyethylene glycoL POWDER 17 GM (MIRALAX) PACK PO SCH ×2 (08:18→21:16)
[2021-12-20] MEDS: SENNA W/DOCUSATE (SENOKOT S) TABLET PO SCH ×2 (08:18→21:16)
[2021-12-20] MEDS: FUROSEMIDE 20 MG (LASIX) TAB PO SCH (08:21)
[2021-12-20] MEDS: MAGNESIUM OXIDE (MAG-OX)400 MG TAB PO SCH ×2 (08:21→21:14)
[2021-12-20] MEDS: CLOPIDOGREL 75 MG (PLAVIX) TABLET PO SCH (08:21)
[2021-12-20] MEDS: FOLIC ACID 1 MG TAB PO SCH (08:21)
[2021-12-20] MEDS ORDERED: NON-FORMULARY MEDICATION 1 EA EA (Potassium Chloride 10 MEQ) PO SCH (09:00)
[2021-12-20 11:49] VITALS: BP 144/100
[2021-12-20 16:39] VITALS: BP 135/93
[2021-12-20 19:51] VITALS: BP 133/106
[2021-12-20] MEDS: ENOXAPARIN 40 MG/0.4 ML (LOVENOX) SYR SC SCH (21:15)
--- NOTE | 2021-12-20 23:11 | Progress Note ---
Subjective Subjective/Events-last exam Patient feeling better but states that she is nervous about going home because she lives on her own. tolerating PO diet. Right arm in sling. Review of Systems Pulmonary: Dyspnea Musculoskeletal: shoulder pain Neurological: Weakness Objective Exam Last Set of Vital Signs Vital Signs Date Time Temp Pulse Resp B/P (MAP) Pulse Ox O2 Delivery O2 Flow Rate FiO2 12/20/21 21:59 97 Room Air 12/20/21 19:51 36.0 111 18 133/106 (115) 12/20/21 14:17 0.00 Capillary Refill : Less Than 3 Seconds I&O Intake and Output 12/20/21 00:00 Intake Total 5275 ml Output Total 2050 ml Balance 3225 ml Intake Oral 475 ml IV Total 4800 ml Output Urine Total 2050 ml # Voids 1 # Bowel Movements 4 Daily Weight Change Yes, 14-23 lbs General: Alert, Oriented X3, No Acute Distress Lungs: Clear to Auscultation, Normal Air Movement Heart: Regular Rate, No Murmurs Abdomen: Normal Bowel Sounds, Soft, No Tenderness, No Masses Extremities: No Edema, No Tenderness/Swelling Other physical findings Right UE in sling, ttp on distal end of clavical Results/Procedures Lab Laboratory Tests 12/20/21 05:24: Glucometer 143H 12/20/21 05:38: White Blood Count 14.2H, Red Blood Count 4.88, Hemoglobin 15.4#, Hematocrit 46, Mean Corpuscular Volume 94, Mean Corpuscular Hemoglobin 32, Mean Corpuscular Hemoglobin Concent 34, Red Cell Distribution Width 12.1, Platelet Count 308, Mean Platelet Volume 10.8, Immature Granulocyte % (Auto) 0, Neutrophils (%) (Auto) 71, Lymphocytes (%) (Auto) 21, Monocytes (%) (Auto) 6, Eosinophils (%) (Auto) 1, Basophils (%) (Auto) 1, Neutrophils # (Auto) 10.1H, Lymphocytes # (Auto) 2.9, Monocytes # (Auto) 0.9, Eosinophils # (Auto) 0.2, Basophils # (Auto) 0.1, Immature Granulocyte # (Auto) 0.0, Neutrophils % (Manual) 77, Lymphocytes % (Manual) 18, Monocytes % (Manual) 4, Eosinophils % (Manual) 1, Blood Morphology Comment NORMAL, Sodium Level 138, Potassium Level 3.8, Chloride Level 103, Carbon Dioxide Level 22, Anion Gap 13, Blood Urea Nitrogen 7, Creatinine 0.66, Estimat Glomerular Filtration Rate 101, BUN/Creatinine Ratio 11, Glucose Level 160H, Calcium Level 9.7, Corrected Calcium 9.5, Magnesium Level 1.6, Total Bilirubin 2.0H, Aspartate Amino Transf (AST/SGOT) 17, Alanine Aminotransferase (ALT/SGPT) 23, Alkaline Phosphatase 118, Total Protein 7.4, Albumin 4.3 12/20/21 11:26: Glucometer 225H 12/20/21 16:45: Glucometer 140H 12/20/21 20:43: Glucometer 168H Microbiology 12/19/21 MRSA Screen - Final, Complete MRSA not isolated Assessment/Plan Assessment/Plan (1) Falls Status: Resolved Assessment & Plan: 12/20: No more dizziness of falls (2) Hypotension Status: Resolved (3) Right clavicle fracture Status: Acute Assessment & Plan: 12/20: Patient in sling currently, will have outpatient f.u with Dr Maxwell Qualifiers: Qualified Codes: S42.001A - Fracture of unspecified part of right clavicle, initial encounter for closed fracture SHE UP MD Dec 20, 2021 23:11
[2021-12-21 00:50] VITALS: BP 180/92
[2021-12-21 03:50] VITALS: BP 144/98
[2021-12-21 05:10] LABS: BASOPHILS # (AUTO) 0.1 10^3/uL (0.0-0.1); BASOPHILS % (AUTO) 1 % (0-10); EOSINOPHILS # (AUTO) 0.1 10^3/uL (0.0-0.3); EOSINOPHILS % (AUTO) 0 % (0-10); HEMATOCRIT 49 % (35-52); HEMOGLOBIN 16.7 g/dL (11.5-16.0); LYMPHOCYTES # (AUTO) 2.9 10^3/uL (1.0-4.0); LYMPHOCYTES % (AUTO) 23 % (12-44); MEAN CORPUSCULAR HEMOGLOBIN 32 pg (25-34); MEAN CORPUSCULAR HGB CONC 34 g/dL (32-36); MEAN CORPUSCULAR VOLUME 92 fL (80-99); MEAN PLATELET VOLUME 10.7 fL (9.0-12.2); MONOCYTES # (AUTO) 0.9 10^3/uL (0.0-1.0); MONOCYTES % (AUTO) 7 % (0-12); NEUTROPHILS # (AUTO) 8.6 10^3/uL (1.8-7.8); NEUTROPHILS % (AUTO) 68 % (42-75); PLATELET COUNT 328 10^3/uL (130-400); WHITE BLOOD COUNT 12.6 10^3/uL (4.3-11.0)
[2021-12-21 05:26] LABS: ALBUMIN 4.8 GM/DL (3.2-4.5); CHLORIDE 95 MMOL/L (98-107); SODIUM 134 MMOL/L (135-145)
[2021-12-21 05:27] LABS: CALCIUM 10.9 MG/DL (8.5-10.1)
[2021-12-21 05:28] LABS: GLUCOSE 167 MG/DL (70-105); TOTAL PROTEIN 8.4 GM/DL (6.4-8.2)
[2021-12-21 05:29] LABS: CARBON DIOXIDE 22 MMOL/L (21-32)
[2021-12-21 05:30] LABS: BILIRUBIN,TOTAL 1.8 MG/DL (0.1-1.0)
[2021-12-21 05:32] LABS: ALKALINE PHOSPHATASE 140 U/L (40-136); CREATININE SERUM 0.76 MG/DL (0.60-1.30); GFR ESTIMATED 90
[2021-12-21 05:33] LABS: BUN/CREATININE RATIO 22
[2021-12-21 05:35] LABS: ALANINE AMINOTRANSFERASE 38 U/L (0-55)
[2021-12-21] MEDS: MULTIVIT W/MINERALS TAB (THERAGRAN M) PO SCH (06:17)
[2021-12-21] MEDS: LEVOTHYROXINE 100 MCG (LEVOTHROID) TAB PO SCH (06:17)
[2021-12-21] MEDS: inSUlin ASPART (NovoLOG) 1 UNIT/0.01 ML (CHARGE PER UNIT) SC SCH ×2 (06:17→11:55)
[2021-12-21] MEDS: THIAMINE 100 MG (VITAMIN B-1) TAB PO SCH (06:17)
[2021-12-21] MEDS: KCL 10 MEQ TAB (MICRO K) PO SCH (06:17)
[2021-12-21 07:52] VITALS: BP 144/83
[2021-12-21] MEDS: FUROSEMIDE 20 MG (LASIX) TAB PO SCH (08:08)
[2021-12-21] MEDS: FOLIC ACID 1 MG TAB PO SCH (08:08)
[2021-12-21] MEDS: CLOPIDOGREL 75 MG (PLAVIX) TABLET PO SCH (08:08)
[2021-12-21] MEDS: GABAPENTIN 400 MG (NEURONTIN) CAP PO SCH ×2 (08:09→13:12)
[2021-12-21] MEDS: MAGNESIUM OXIDE (MAG-OX)400 MG TAB PO SCH (08:09)
[2021-12-21] MEDS: ONDANSETRON 4 MG/2 ML (SDV) Z0FRAN IVP PRN (08:12)
[2021-12-21] MEDS: polyethylene glycoL POWDER 17 GM (MIRALAX) PACK PO SCH (08:12)
[2021-12-21] MEDS: SENNA W/DOCUSATE (SENOKOT S) TABLET PO SCH (08:13)
[2021-12-21] MEDS ORDERED: ASPI-1238 PO (09:15)
[2021-12-21] MEDS ORDERED: ATOR40TA70 PO (09:15)
[2021-12-21] MEDS ORDERED: CLOP75TA28 PO (09:15)
[2021-12-21 11:04] VITALS: BP 127/81
[2021-12-21] MEDS ORDERED: ACHD5005 PO (12:24)
--- NOTE | 2021-12-21 12:30 | Discharge Summary ---
Discharge Summary Reconcile Patient Problems Problems Reviewed?: Yes Instructions for Patient Via [facility], Assessment/Instructions Falls Right Clavicular fracture Hypotension Tobacco use Physician to follow Patient: AUGIE Discharge Diet for Home: No Restrictions Hospital Course Date of Admission: Dec 19, 2021 at 03:00 Admission Diagnosis : Family Physician/Provider: No,Local Physician Date of Discharge: 12/21/21 Discharge Diagnosis: Falls Hypotension Right clavicular fracture Tobacco use h/o back surgery Hospital Course: 61 yo F that presented after a fall and found to be hypotensive. No source of hypotension was found during admission. VS stable and patient was up and ambulating. Will have ortho f.u for R clavicular fracture. Labs and Pending Lab Test: Laboratory Tests 12/20/21 16:45: Glucometer 140H 12/20/21 20:43: Glucometer 168H 12/21/21 04:55: Glucometer 171H 12/21/21 04:58: White Blood Count 12.6H, Red Blood Count 5.29H, Hemoglobin 16.7H, Hematocrit 49, Mean Corpuscular Volume 92, Mean Corpuscular Hemoglobin 32, Mean Corpuscular Hemoglobin Concent 34, Red Cell Distribution Width 12.0, Platelet Count 328, Mean Platelet Volume 10.7, Immature Granulocyte % (Auto) 0, Neutrophils (%) (Auto) 68, Lymphocytes (%) (Auto) 23, Monocytes (%) (Auto) 7, Eosinophils (%) (Auto) 0, Basophils (%) (Auto) 1, Neutrophils # (Auto) 8.6H, Lymphocytes # (Auto) 2.9, Monocytes # (Auto) 0.9, Eosinophils # (Auto) 0.1, Basophils # (Auto) 0.1, Immature Granulocyte # (Auto) 0.1, Sodium Level 134L, Potassium Level 4.0, Chloride Level 95L, Carbon Dioxide Level 22, Anion Gap 17H, Blood Urea Nitrogen 17, Creatinine 0.76, Estimat Glomerular Filtration Rate 90, BUN/Creatinine Ratio 22, Glucose Level 167H, Calcium Level 10.9H, Corrected Calcium , Magnesium Level 2.0, Total Bilirubin 1.8H, Aspartate Amino Transf (AST/SGOT) 26, Alanine Aminotransferase (ALT/SGPT) 38, Alkaline Phosphatase 140H, Total Protein 8.4H, Albumin 4.8H 12/21/21 11:00: Glucometer 185H Microbiology 12/19/21 MRSA Screen - Final, Complete MRSA not isolated Home Meds Active Reported Clopidogrel (Clopidogrel Bisulfate) 75 Mg Tablet 75 Mg PO DAILY Atorvastatin Calcium 40 Mg Tablet 40 Mg PO HS Aspirin EC (Aspirin) 81 Mg Tablet.dr 81 Mg PO BID Gabapentin 800 Mg Tablet 800 Mg PO TID Tresiba Flextouch U-100 (Insulin Degludec) 100 Unit/Ml (3 Ml) Insuln.pen 50 Unit SQ DAILY LAST FILLED 06-09-2021 #5 PENS/30 DAY SUPPLY Zegerid 40 mg Capsule (Omeprazole/Sodium Bicarbonate) 40 Mg-1.1 Gram Capsule 1 Each PO BID Furosemide 20 Mg Tablet 20 Mg PO DAILY LAST FILLED 07-16-2021 #90/90 DAY SUPPLY Levothyroxine Sodium 100 Mcg Tablet 100 Mcg PO DAILY LAST FILLED 05-28-2021 #90/90 DAY SUPPLY Cyclobenzaprine HCl 10 Mg Tablet 10 Mg PO HS PRN Patient Allergies: Coded Allergies: Penicillins (Verified Allergy, Unknown, 12/15/15) Height (Feet): 5 Height (Inches): 7.00 Weight (Pounds): 165 Weight (Ounces): 0.0 New Medications: Hydrocodone Bit/Acetaminophen (HYDROcodone/APAP 5 MG/325 MG TAB) 1 Tab Tab 1 EA PO Q6H PRN for MOD, #28 TAB Continued Medications: Aspirin (Aspirin EC) 81 Mg Tablet.dr 81 MG PO BID, TAB Atorvastatin Calcium (Atorvastatin Calcium) 40 Mg Tablet 40 MG PO HS, TAB Clopidogrel Bisulfate (Clopidogrel) 75 Mg Tablet 75 MG PO DAILY, TAB Cyclobenzaprine HCl (Cyclobenzaprine HCl) 10 Mg Tablet 10 MG PO HS PRN for MUSCLE SPASMS, TAB Furosemide (Furosemide) 20 Mg Tablet 20 MG PO DAILY, TAB LAST FILLED 07-16-2021 #90/90 DAY SUPPLY Gabapentin (Gabapentin) 800 Mg Tablet 800 MG PO TID, TAB Insulin Degludec (Tresiba Flextouch U-100) 100 Unit/Ml (3 Ml) Insuln.pen 50 UNIT SQ DAILY, EA LAST FILLED 06-09-2021 #5 PENS/30 DAY SUPPLY Levothyroxine Sodium (Levothyroxine Sodium) 100 Mcg Tablet 100 MCG PO DAILY, TAB LAST FILLED 05-28-2021 #90/90 DAY SUPPLY Omeprazole/Sodium Bicarbonate (Zegerid 40 mg Capsule) 40 Mg-1.1 Gram Capsule 1 EACH PO BID, CAP Home Health Need/Face to Face Date of Face to Face: Dec 21, 2021 Clinical Findings: Generalized weakness and fatigue, Instability I have seen Pt [id number]: Yes Discharged To: Home Diagnosis/Conditions: See above Patient is Homebound due to: Giselle fall risk due to instabilty Homebound Status Due to the above stated illness, injury or surgical procedure (medical condition or diagnosis) and associated clinical findings, the patient is homebound because of his/her inability to leave home except with aid of a supportive device and/or person AND leaving the home requires a considerable and taxing effort or is medically contraindicated. Pt req the following assistanc: Aid of another person Home Health Nursing Orders Home Health Services Order: Physical Therapy-Evaluate & Treat Therapy Orders Therapy Orders: Physical Therapy, PT to assess for OT Therapy Specific Orders: Teach enviro modifications/safety, Restore ROM Certify Stmt I certify that this patient is under my care and that I, a nurse practitioner or a physician; a faculty i on call medical assistant working with me, had a face to face encounter that - meets the physician face to face encounter requirements with this patient as dated. Discharge Physical Exam General: Alert, Oriented X3, Cooperative, No Acute Distress HEENT: Mucous Memb Moist/[place] Lungs: Clear to Auscultation, Normal Air Movement Heart: Regular Rate Abdomen: Normal Bowel Sounds, Soft, No Tenderness, No Masses Extremities: Other (Right arm in sling, distal protrusion of clavical) Neuro: Normal Speech, Sensation Intact, Cranial Nerves 3-12 NL Psych/Mental Status: Mental Status NL, Mood NL SHE UP MD Dec 21, 2021 12:30
[2021-12-21 14:45] VITALS: BP 127/81
== END 2021-12-21 12:22 | disposition home or self-care (01) ==
LOC: EDUNIT# 23:53 → ER 23:54 → ICU 23:55 → UNDOADMOB 12-19 03:00 → ICU 12-19 03:00 → 4TH 12-19 21:34 → ICU 12-19 21:34 → UNDODISOB 12-21 12:22
PROVIDERS: ADMIT Internal Medicine; ATTEND Family Medicine
DX: I95.9 Hypotension, unspecified (principal); S42.001A Fracture of unspecified part of right clavicle, initial encounter for closed fracture; I25.10 Atherosclerotic heart disease of native coronary artery without angina pectoris; E78.5 Hyperlipidemia, unspecified; E11.9 Type 2 diabetes mellitus without complications; G47.30 Sleep apnea, unspecified; G89.29 Other chronic pain; I11.0 Hypertensive heart disease with heart failure; I50.32 Chronic diastolic (congestive) heart failure; Z79.82 Long term (current) use of aspirin; F17.210 Nicotine dependence, cigarettes, uncomplicated; W19.XXXA Unspecified fall, initial encounter; E86.0 Dehydration
CPT/HCPCS: 70450; 71045; 72125; 73030; 80053 ×3; 80306; 81000; 82947 ×3; 83735 ×3; 84100; 84484; 85007; 85025 ×3; 85027; 87081; 93005; 94760; 96361; 96372 ×2; 96374; 96375; 96376 ×3; 99285; G0378 ×2; G0480; L3650; 36415; 80320

== ENCOUNTER 2022-02-23 11:29 | Observation (INO) | payer MEDICARE ==
[~2022-02-23] VITALS: Ht 172 cm; Wt 57.0 kg
[~2022-02-23 11:29] MED LIST changes: +ACHD5005 PO; +ATOR40TA70 PO; +POTA-177 PO; -POTA10TA37 PO
--- NOTE | 2022-02-23 11:34 | ED General ---
General Stated Complaint: FALL/HIP PAIN Source of Information: Patient, EMS Exam Limitations: No Limitations (KENDRA VASQUEZ APRN) History of Present Illness Date Seen by Provider: Feb 23, 2022 Time Seen by Provider: 11:34 Initial Comments This is a 61-year-old female who presented to the ER via [facility] with complaints of right hip pain. States that she was walking her dog around 3:00 this morning when she fell in her yard onto the grass, had immediate pain in her hip and was unable to get up. She was able to scoot herself into the house, she waited until her friend was awake before she called and requested help, they attempted to help her but she is unable to bear weight. So she called [facility] to bring her to ER for further evaluation. Has not taken anything for pain prior to arrival. Pain is localized to her right hip, does not radiate, describes as aching, constant, worse with movement. No numbness or tingling in her lower extremities. Full sensation. (KENDRA VASQUEZ APRN) Allergies and Home Medications Allergies Coded Allergies: Penicillins (Verified Allergy, Unknown, 12/15/15) Patient Home Medication List Home Medication List Reviewed: Yes (KENDRA VASQUEZ APRN) Aspirin (Aspirin EC) 81 Mg Tablet.dr, 81 MG PO DAILY Prescribed by: NAT SANDOVAL on 02/26/22 115 Atorvastatin Calcium (Atorvastatin Calcium) 40 Mg Tablet, 40 MG PO HS, (Reported) Entered as Reported by: JENNIFER BOOTHE on 12/21/21914 Last Action: Reviewed Clopidogrel Bisulfate (Clopidogrel) 75 Mg Tablet, 75 MG PO DAILY, (Reported) Entered as Reported by: JENNIFER BOOTHE on 12/21/21914 Last Action: Reviewed Gabapentin (Gabapentin) 800 Mg Tablet, 800 MG PO TID, (Reported) Entered as Reported by: PATRICIA RODAS on 12/19/21 162 Last Action: Reviewed Insulin Degludec (Tresiba Flextouch U-100) 100 Unit/Ml (3 Ml) Insuln.pen, 35 UNIT SQ DAILY, (Reported) Entered as Reported by: PRADEEP VICTOR on 08/24/21 0942 Last Action: Reviewed Levothyroxine Sodium (Levothyroxine Sodium) 175 Mcg Tablet, 175 MCG PO DAILY, (Reported) Entered as Reported by: JENNIFER BOOTHE on 02/24/22 1531 Last Action: Reviewed Omeprazole/Sodium Bicarbonate (Zegerid 40 mg Capsule) 40 Mg-1.1 Gram Capsule, 1 EACH PO BID, (Reported) Entered as Reported by: PRADEEP VICTOR on 08/24/21 0942 Last Action: Reviewed Discontinued Medications Carvedilol (Carvedilol) 12.5 Mg Tablet, 12.5 MG PO BID Discontinued Reason: No Longer Taking Prescribed by: SON MONCADA on 02/24/22 0017 Last Action: Discontinued Carvedilol (Carvedilol) 12.5 Mg Tablet, 12.5 MG PO BID, (Reported) Entered as Reported by: JENNIFER BOOTHE on 02/24/22 1425 Last Action: Reviewed Cyclobenzaprine HCl (Cyclobenzaprine HCl) 10 Mg Tablet, 10 MG PO HS PRN for MUSCLE SPASMS, (Reported) Discontinued Reason: No Longer Taking Entered as Reported by: JENNIFER BOOTHE on 09/11/20 1458 Last Action: Discontinued Furosemide (Furosemide) 20 Mg Tablet, 20 MG PO DAILY, (Reported) Entered as Reported by: PRADEEP VICTOR on 08/24/21 0942 Last Action: Reviewed Hydrocodone Bit/Acetaminophen (HYDROcodone/APAP 5 MG/325 MG TAB) 1 Tab Tab, 1 EA PO Q6H PRN for MOD Discontinued Reason: No Longer Taking Prescribed by: SHE UP on 12/21/21 1225 Last Action: Discontinued Levothyroxine Sodium (Levothyroxine Sodium) 100 Mcg Tablet, 175 MCG PO DAILY Discontinued Reason: Duplicate Order Prescribed by: SON MONCADA on 02/24/22 0010 Last Action: Discontinued Review of Systems Review of Systems Constitutional: see HPI (KENDRA VASQUEZ APRN) Past Nioubdb-Leyrbh-Ylsvip Hx Immunizations Up To Date Tetanus Booster (TDap): Unknown PED Vaccines UTD: Yes (KENDRA VASQUEZ APRN) Seasonal Allergies Seasonal Allergies: No (KENDRA VASQUEZ APRN) Past Medical History Surgery/Hospitalization HX: c-sect x2, back, cholecystectomy, hysterectomy, benjamin, iddm, anxiety, depression, neuropathy Surgeries: Yes ( X 2; BACK SURGERY 08/24/20 DUE TO TRAUMA) Cardiac, Section, Coronary Stent, Gallbladder, Hysterectomy, Orthopedic Respiratory: Yes (SLEEP APNEA--STATES SHE DOES NOT HAVE CPAP, PER PT 12/19/21) Sleep Apnea Currently Using CPAP: No Cardiac: Yes (A-FIB; CHF; STENTS X 2) Atrial Fibrillation, Coronary Artery Disease, High Cholesterol, Hypertension, Irregular Heartbeat, Valvular Heart Disease Neurological: Yes Neuropathy 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, Menopausal Genitourinary: Yes (HAD ACUTE RENAL FAILURE/INSUFFICIENCY WHEN SHE FELL 08/20/20-NO DIALYSIS) Renal Failure Gastrointestinal: No Musculoskeletal: Yes (FALL 08/20/20-T12 BURST FX AND RIGHT WRIST FX) Chronic Back Pain, Fractures Endocrine: Yes (TYPE 2 ) Diabetes, Insulin dep, Hypothyroidsim HEENT: No Cancer: No Psychosocial: Yes Anxiety, Bipolar, Depression Integumentary: No Blood Disorders: No (KENDRA VASQUEZ APRN) Family Medical History No Pertinent Family Hx SOCIAL HISTORY: -SMOKES 1 PPD -ETOH--NONE FOR 30 YEARS -DRUGS--SMOKES MARIJUANA ON REGULAR BASIS PAST SURGICAL HISTORY: - X 2 -CHOLECYSTECTOMY -HYSTERECTOMY/BILATERAL SALPINGO-OOPHORECTOMY -BACK SURGERY WITH RODS: PT FELL ON 08/20/20, HAD T12 BURST FRACTURE AND RIGHT WRIST FRACTURE AND WAS TRANSFERRED TO [facility] ON 08/24/20, PT HAD T12-L1 LAMINECTOMY AND BILATERAL DECOMPRESSION, AND T10-T11, T11-T12, T12-L1, L1-L2 POSTERIOR LATERAL FUSION USING [employer] PEDICLE SCREWS AND LOCAL BONE GRAFT BY DR. STEINER. -CARDIAC CATH WITH STENTS X 2 ON 08/24/[address] NAIK: CONCLUSIONS: 1. Coronary artery disease primarily consisting of distal occlusion of a codominant left circumflex and a long, up to 99% stenosis in the first obtuse marginal that was successfully stented with overlapping Skypoint 3.0 x 32 mm and Skypoint 3.0 x 12 mm stents with reduction of restenosis to 0% residual and improvement of flow from ZAHIRA 2 to ZAHIRA 3. The first diagonal branch, left anterior descending artery is of a small caliber and has 60% proximal stenosis. The rest of the vessels have diffuse mild to moderate plaque. 2. Well preserved global left ventricular systolic function. 3. Localized posterobasal akinesis. 4. Left ventricular end-diastolic pressure 12 mmHg. DISCUSSION AND RECOMMENDATIONS: She is being hospitalized for observation after this procedure. Dual antiplatelet therapy is being continued. She is on statin therapy that has been continued. We are also continuing her beta quentin and DANIA inhibitors. Further recommendation will be based on her hospital course. (KENDRA VASQUEZ APRN) Physical Exam Vital Signs Vital Signs - First Documented 02/23/22 11:37 Temp 36.6 Pulse 88 Resp 16 B/P (MAP) 121/77 (92) (NISHI BOEN MD) Vital Signs Capillary Refill : (KENDRA VASQUEZ APRN) Height, Weight, BMI Height: 5'7.00" Weight: 165lbs. 0.0oz. 74.284240nj; 20.68 BMI Method:Stated General Appearance: No Apparent Distress, WD/WN Eyes: Bilateral Eye Normal Inspection, Bilateral Eye PERRL, Bilateral Eye EOMI HEENT: PERRL/EOMI, Normal ENT Inspection Neck: Full Range of Motion, Normal Inspection, Non Tender Respiratory: Lungs Clear, Normal Breath Sounds, No Accessory Muscle Use, No Respiratory Distress Cardiovascular: Regular Rate, Rhythm, No Edema Gastrointestinal: Normal Bowel Sounds, Non Tender, Soft Back: Normal Inspection, No Vertebral Tenderness Extremity: Normal Capillary Refill; No Normal Range of Motion; No Pedal Edema, Other (Right hip pain) Neurologic/Psychiatric: Alert, Oriented x3, No Motor/Sensory Deficits, Normal Mood/Affect Skin: Normal Color, Warm/Dry (KENDRA VASQUEZ APRN) Focused Exam Lactate Level 02/23/22 13:47: Lactic Acid Level 2.55*H (NISHI BONE MD) Lactic Acid Level Laboratory Tests Test 02/23/22 13:47 Lactic Acid Level 2.55 MMOL/L (0.50-2.00) *H (NISHI BONE MD) Progress/Results/Core Measures Suspected Sepsis SIRS Temperature: Pulse: Respiratory Rate: Blood Pressure / Mean: 02/23/22 13:47: Lactic Acid Level 2.55*H (KENDRA VASQUEZ APRN) Results/Orders Lab Results Laboratory Tests Test 02/23/22 12:20 02/23/22 13:47 02/23/22 15:12 Range/Units White Blood Count 22.6 H 4.3-11.0 10^3/uL Red Blood Count 5.39 H 3.80-5.11 10^6/uL Hemoglobin 17.0 H 11.5-16.0 g/dL Hematocrit 49 35-52 % Mean Corpuscular Volume 92 80-99 fL Mean Corpuscular Hemoglobin 32 25-34 pg Mean Corpuscular Hemoglobin Concent 34 32-36 g/dL Red Cell Distribution Width 11.7 10.0-14.5 % Platelet Count 317 130-400 10^3/uL Mean Platelet Volume 10.7 9.0-12.2 fL Immature Granulocyte % (Auto) 1 % Neutrophils (%) (Auto) 80 H 42-75 % Lymphocytes (%) (Auto) 11 L 12-44 % Monocytes (%) (Auto) 8 0-12 % Eosinophils (%) (Auto) 0 0-10 % Basophils (%) (Auto) 0 0-10 % Neutrophils # (Auto) 18.0 H 1.8-7.8 10^3/uL Lymphocytes # (Auto) 2.5 1.0-4.0 10^3/uL Monocytes # (Auto) 1.7 H 0.0-1.0 10^3/uL Eosinophils # (Auto) 0.0 0.0-0.3 10^3/uL Basophils # (Auto) 0.1 0.0-0.1 10^3/uL Immature Granulocyte # (Auto) 0.2 H 0.0-0.1 10^3/uL Neutrophils % (Manual) 81 % Lymphocytes % (Manual) 12 % Monocytes % (Manual) 6 % Eosinophils % (Manual) 1 % Blood Morphology Comment NORMAL Sodium Level 125 *L 135-145 MMOL/L Potassium Level 3.9 3.6-5.0 MMOL/L Chloride Level 87 L 98-107 MMOL/L Carbon Dioxide Level 24 21-32 MMOL/L Anion Gap 14 5-14 MMOL/L Blood Urea Nitrogen 58 H 7-18 MG/DL Creatinine 1.87 H 0.60-1.30 MG/DL Estimat Glomerular Filtration Rate 31 BUN/Creatinine Ratio 31 Glucose Level 287 H 70-105 MG/DL Calcium Level 10.4 H 8.5-10.1 MG/DL Corrected Calcium 8.5-10.1 MG/DL Total Bilirubin 1.5 H 0.1-1.0 MG/DL Aspartate Amino Transf (AST/SGOT) 35 H 5-34 U/L Alanine Aminotransferase (ALT/SGPT) 69 H 0-55 U/L Alkaline Phosphatase 141 H 40-136 U/L Total Protein 8.2 6.4-8.2 GM/DL Albumin 4.7 H 3.2-4.5 GM/DL Lipase 28 8-78 U/L Procalcitonin 0.07 <0.10 NG/ML Lactic Acid Level 2.55 *H 0.50-2.00 MMOL/L Urine Color YELLOW Urine Clarity SL CLOUDY Urine pH 5.5 5-9 Urine Specific [place] 1.020 1.016-1.022 Urine Protein TRACE H NEGATIVE Urine Glucose (UA) 2+ H NEGATIVE Urine Ketones NEGATIVE NEGATIVE Urine Nitrite NEGATIVE NEGATIVE Urine Bilirubin NEGATIVE NEGATIVE Urine Urobilinogen 0.2 < = 1.0 MG/DL Urine Leukocyte Esterase NEGATIVE NEGATIVE Urine RBC (Auto) NEGATIVE NEGATIVE Urine RBC NONE /HPF Urine WBC 0-2 /HPF Urine Squamous Epithelial Cells 2-5 /HPF Urine Crystals PRESENT H /LPF Urine Amorphous Sediment FEW PEEWEE URATES H /LPF Urine Bacteria NEGATIVE /HPF Urine Casts NONE /LPF Urine Mucus NEGATIVE /LPF Urine Culture Indicated NO (NISHI BONE MD) Micro Results Microbiology 02/23/22 Blood Culture - Preliminary, Resulted No growth 02/23/22 Blood Culture - Preliminary, Resulted Staph, Coag Neg (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 TECHNIQUE: Multiple contiguous axial images were obtained through the abdomen and pelvis after the uneventful administration of intravenous contrast. All CT scans use one or more of the following dose optimizing techniques: automated exposure control, MA and/or KvP adjustment based on patient size and exam type or iterative reconstruction. HISTORY: Abdominal pain. COMPARISON: 11/26/2021. FINDINGS: Limited views of the lower thorax are unremarkable. The liver is normal without focal lesion. There is no biliary ductal dilation. Gallbladder is absent. Pancreas is normal. There is a small cyst in the spleen. Adrenal glands are normal. The kidneys are normal. There is no hydronephrosis. Urinary bladder is normal. Bowel is normal in caliber without obstruction or inflammation. No free fluid or air. No abdominal or pelvic lymphadenopathy. Aorta is normal in caliber without aneurysm. There are no suspicious osseous lesions. There has been a lumbar spine fusion. IMPRESSION: 1. No acute abnormality in the abdomen or pelvis. Dictated by: Dictated on workstation # [id number] Dict: 02/23/22 1252 Trans: 02/23/22 1629 [facility] [id number] Interpreted by: MARITNA HOPSON MD Electronically signed by: MARTINA HOPSON MD 02/23/221628 Comments [facility] [place], [place] NAME: KRISTIAN REY MED REC#: [id number] PT STATUS: REG ER : 1960 PHYSICIAN: KENDRA VASQUEZ INSTRUCTOR CREELER ADMIT DATE: 02/23/22/ER Signed Date of Exam:02/23/22 CHEST 1 VIEW, AP/PA ONLY INDICATION: Hypotension, right hip pain. EXAMINATION: Portable chest at 12:58 PM. FINDINGS: The heart and mediastinum are normal. The lungs are clear. There are no effusions or pneumothoraces. IMPRESSION: No acute abnormalities in the chest. Dictated by: Dictated on workstation # [id number] Dict: 02/23/22 1304 Trans: 02/23/221517 [id number] Interpreted by: GETACHEW MCNEILL MD Electronically signed by: GETACHEW MCNEILL MD 02/23/22 151 Comments [facility] [place] [place] NAME: KRISTIAN REY MED REC#: [id number] PT STATUS: REG ER : 1960 PHYSICIAN: KENDRA VASQUEZ APRN ADMIT DATE: 02/23/22/ER Signed Date of Exam:02/23/22 PELVIS WITH RIGHT HIP 2-3VIEWS INDICATION: Right hip injury from a fall. FINDINGS: Three views of the right hip show slight deformity of the right femoral neck that could be a nondisplaced impacted fracture. IMPRESSION: Suspected impacted fracture of the basicervical region of the right femoral neck. Dictated by: Dictated on workstation # [id number] Dict: 02/23/22 1303 Trans: 02/23/22 1518 [id number] Interpreted by: GETACHEW MCNEILL MD Electronically signed by: GETACHEW MCNEILL MD 02/23/22 1518 (KENDRA VASQUEZ APRN) Departure Communication (Admissions) Time/Spoke to Admitting Phy: 15:39 [place] Time/Spoke to Consulting Phy: 15:30 Dr. Baird (KENDRA VASQUEZ APRN) Impression Primary Impression: Fall (on)(from) sidewalk curb, initial encounter Additional Impressions: Closed impacted fracture of right hip Hyponatremia Dehydration CKD (chronic kidney disease) Disposition: ADMITTED INPATIENT Condition: Stable (ERASED) Admissions Decision to Admit Reason: Admit from ER (Trauma) Decision to Admit/Date: Feb 23, 2022 Time/Decision to Admit Time: 15:20 (KENDRA VASQUEZ APRN) Departure-Patient Inst. Referrals: NO,LOCAL PHYSICIAN (PCP/Family) Primary Care Physician Scripts Aspirin (Aspirin EC) 81 Mg Tablet. 81 MG PO DAILY for 30 Days, TAB Prov: NAT SANDOVAL MD 02/26/22 ATTENDING PHYSICIAN NOTE: I was physically present as attending physician in the emergency department during the care of this patient, but I was not directly involved in the decision making or delivery of care for this patient. (NISHI BONE MD) KENDRA VASQUEZ APRN Feb 23, 2022 11:34 NISHI BONE MD Feb 28, 2022 07:46
[2022-02-23] MEDS ORDERED: NS 100 ML (IVPB) BAG IV ONE (12:00)
[2022-02-23] MEDS ORDERED: HOLD METFORMIN - RECEIVED CONTRAST 20 ML VIAL IV SCH (12:00)
[2022-02-23] MEDS ORDERED: fentaNYL INJ 100 MCG/2 ML AMP IVP ONE (12:00)
[2022-02-23] MEDS ORDERED: IOHEXOL 350 MG/ML 100 ML (OMNIPAQUE 350) VIAL IV ONE (12:00)
[2022-02-23 12:28] LABS: BASOPHILS # (AUTO) 0.1 10^3/uL (0.0-0.1); BASOPHILS % (AUTO) 0 % (0-10); EOSINOPHILS % (AUTO) 0 % (0-10); HEMATOCRIT 49 % (35-52); LYMPHOCYTES # (AUTO) 2.5 10^3/uL (1.0-4.0); LYMPHOCYTES % (AUTO) 11 % (12-44); MEAN CORPUSCULAR HEMOGLOBIN 32 pg (25-34); MEAN CORPUSCULAR HGB CONC 34 g/dL (32-36); MEAN CORPUSCULAR VOLUME 92 fL (80-99); MEAN PLATELET VOLUME 10.7 fL (9.0-12.2); MONOCYTES # (AUTO) 1.7 10^3/uL (0.0-1.0); MONOCYTES % (AUTO) 8 % (0-12); NEUTROPHILS % (AUTO) 80 % (42-75); PLATELET COUNT 317 10^3/uL (130-400); WHITE BLOOD COUNT 22.6 10^3/uL (4.3-11.0)
[2022-02-23 12:39] LABS: ALBUMIN 4.7 GM/DL (3.2-4.5)
[2022-02-23 12:40] LABS: CHLORIDE 87 MMOL/L (98-107); POTASSIUM 3.9 MMOL/L (3.6-5.0)
[2022-02-23 12:41] LABS: CALCIUM 10.4 MG/DL (8.5-10.1)
[2022-02-23 12:42] LABS: GLUCOSE 287 MG/DL (70-105); TOTAL PROTEIN 8.2 GM/DL (6.4-8.2)
[2022-02-23 12:43] LABS: CARBON DIOXIDE 24 MMOL/L (21-32)
[2022-02-23 12:44] LABS: BILIRUBIN,TOTAL 1.5 MG/DL (0.1-1.0)
[2022-02-23 12:45] LABS: ALKALINE PHOSPHATASE 141 U/L (40-136)
[2022-02-23 12:46] LABS: CREATININE SERUM 1.87 MG/DL (0.60-1.30); GFR ESTIMATED 31
[2022-02-23 12:47] LABS: BUN/CREATININE RATIO 31
[2022-02-23 12:48] LABS: ALANINE AMINOTRANSFERASE 69 U/L (0-55)
[2022-02-23 12:49] LABS: LIPASE 28 U/L (8-78)
[2022-02-23 12:50] LABS: EOSINOPHILS % (MANUAL) 1 %; LYMPHOCYTES % (MANUAL) 12 %; MONOCYTES % (MANUAL) 6 %; NEUTROPHILS % (MANUAL) 81 %; RBC MORPH NORMAL; SODIUM 125 MMOL/L (135-145)
[2022-02-23] MEDS ORDERED: NS IV 1000 ML 1,000 ML IV ONE (13:00)
--- NOTE | 2022-02-23 13:00 | Diagnostic Imaging Report ---
EXAMINATION: CT abdomen and pelvis with intravenous contrast. TECHNIQUE: Multiple contiguous axial images were obtained through the abdomen and pelvis after the uneventful administration of intravenous contrast. All CT scans use one or more of the following dose optimizing techniques: automated exposure control, MA and/or KvP adjustment based on patient size and exam type or iterative reconstruction. HISTORY: Abdominal pain. COMPARISON: 11/26/2021. FINDINGS: Limited views of the lower thorax are unremarkable. The liver is normal without focal lesion. There is no biliary ductal dilation. Gallbladder is absent. Pancreas is normal. There is a small cyst in the spleen. Adrenal glands are normal. The kidneys are normal. There is no hydronephrosis. Urinary bladder is normal. Bowel is normal in caliber without obstruction or inflammation. No free fluid or air. No abdominal or pelvic lymphadenopathy. Aorta is normal in caliber without aneurysm. There are no suspicious osseous lesions. There has been a lumbar spine fusion. IMPRESSION: 1. No acute abnormality in the abdomen or pelvis. Dictated by: Dictated on workstation # [id number]
--- NOTE | 2022-02-23 13:09 | Diagnostic Imaging Report ---
INDICATION: Hypotension, right hip pain. EXAMINATION: Portable chest at 12:58 PM. FINDINGS: The heart and mediastinum are normal. The lungs are clear. There are no effusions or pneumothoraces. IMPRESSION: No acute abnormalities in the chest. Dictated by: Dictated on workstation # [id number]
--- NOTE | 2022-02-23 13:10 | Diagnostic Imaging Report ---
INDICATION: Right hip injury from a fall. FINDINGS: Three views of the right hip show slight deformity of the right femoral neck that could be a nondisplaced impacted fracture. IMPRESSION: Suspected impacted fracture of the basicervical region of the right femoral neck. Dictated by: Dictated on workstation # [id number]
[2022-02-23 15:16] LABS: BILIRUBIN,URINE NEGATIVE (NEGATIVE); CLARITY,URINE SL CLOUDY; COLOR,URINE YELLOW; GLUCOSE, URINE (UA) 2+ (NEGATIVE); KETONES,URINE NEGATIVE (NEGATIVE); LEUKOCYTE ESTERASE ,URINE NEGATIVE (NEGATIVE); NITRITE,URINE NEGATIVE (NEGATIVE); PH,URINE 5.5 (5-9); PROTEIN,URINE TRACE (NEGATIVE)
[2022-02-23 15:24] LABS: AMORPHOUS SEDIMENT,UR FEW AMOR URATES /LPF; BACTERIA,URINE NEGATIVE /HPF; WBC,URINE 0-2 /HPF
[2022-02-23 16:20] VITALS: BP 160/80
--- NOTE | 2022-02-23 16:29 | History & Physical-Hospitalist ---
RENZO TAYLOR 02/23/22 1629: History of Present Illness HPI/Chief Complaint CC: Right hip pain 61yo F with h/o falls resulting in fractures, DMT1, CHF, CKD, and atrial fibrillation presented to the ED today with cc of right hip pain following a fall at 0200 this morning. Pt states that she was walking her dog this morning when she tripped over the sidewalk and fell on her right side. Pt states that she scooted on her butt to her home where she went to bed till about 0800, then she showered and called EMS. Pt denies feeling dizziness or experiencing a syncopal episode prior to fall but does note that she has experienced dizziness with standing and sudden movements since June of this year. ED workup found an elevated WBC, a lactic acid of 2.55, and low sodium. Pt had a CT ABD/Pelvis and CXR today that were both showed no acute abnormalities. Pt also had an XRAY of the pelvis and right hip that was suspicious for an impacted fracture of the basicervical region of the right femoral neck. Pt states that her hip pain has improved from a 10/10 upon arrival to a 7/10 but notes that the pain is worse with movement. Pt denies any nausea or vomiting but does note that 3-4 days prior to her fall, she experienced nausea and vomiting and was unable to eat during this time. Pt says that this has been occurring every month for the past 3-4 months. Pt denies CP, diarrhea, SOB, and abd pain. Source: patient, RN notes reviewed, old records Exam Limitations: no limitations Date Seen 02/23/22 Time Seen by a Provider: 16:23 Attending Physician No,Local Physician PCP Admitting Physician: Coco Winters DO Attending Physician: Coco Winters DO Referring Physician Date of Admission Feb 23, 2022 at 15:39 Home Medications & Allergies Home Medications Reviewed patient Home Medication Reconciliation performed by pharmacy medication reconciliations emergency medical technician basic and/or nursing. Patients Allergies have been reviewed. Reported Insulin (Basaglar) 35 units DAILY Gabapentin 800 Mg Tablet 800 Mg PO DAILY PRN Levothyroxine Sodium 100 Mcg Tablet 100 Mcg PO DAILY Carvedilol 25 Mg Tablet 25 Mg PO BID Allergies Allergies Coded Allergies Penicillins (Verified Allergy, Unknown, 12/15/15) Past Fzvdeug-Gbrwbg-Pyfpmg Hx Patient Social History Marrital Status: Employed/Student: unemployed Tobacco Use?: Yes Tobacco type used: Cigarettes Smoking Status: Current Everyday Smoker Substance use?: Yes Substance type: Marijuana Substance frequency: Once in a while Alcohol Use?: No Pt feels they are or have been: No Immunizations Up To Date Tetanus Booster (TDap): Unknown Hepatitis A: No Hepatitis B: No PED Vaccines UTD: Yes Seasonal Allergies Seasonal Allergies: No Current Status status: No status: No Communicates: Verbally Primary Language: Ivorian Preferred Spoken Language: Ivorian Past Medical History Surgeries: Abdominal (cholecystecomy), Section, Coronary Stent, Gallbladder, Hysterectomy, Lumpectomy (R breast), Orthopedic, Tonsillectomy Sleep Apnea Currently Using CPAP: No Atrial Fibrillation, Coronary Artery Disease, High Cholesterol, Hypertension, Irregular Heartbeat, Valvular Heart Disease 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 (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: Hysterectomy, Menopausal Renal Failure Chronic Back Pain, Fractures (T12 burst fracture, right wrist fracture, clavicle fracture) Diabetes, Insulin dep, Hypothyroidsim Anxiety, Bipolar, Depression Blood Disorders: No DM HTN Palpitations HLD CRI Scleroderma Raynauld's phenomenon Osteopenia Family Medical History No Pertinent Family Hx SOCIAL HISTORY: -SMOKES 1 PPD -ETOH--NONE FOR 30 YEARS -DRUGS--SMOKES MARIJUANA ON REGULAR BASIS PAST SURGICAL HISTORY: - X 2 -CHOLECYSTECTOMY -HYSTERECTOMY/BILATERAL SALPINGO-OOPHORECTOMY -BACK SURGERY WITH RODS: PT FELL ON 08/20/20, HAD T12 BURST FRACTURE AND RIGHT WRIST FRACTURE AND WAS TRANSFERRED TO [facility] ON 08/24/20, PT HAD T12-L1 LAMINECTOMY AND BILATERAL DECOMPRESSION, AND T10-T11, T11-T12, T12-L1, L1-L2 POSTERIOR LATERAL FUSION USING [employer] PEDICLE SCREWS AND LOCAL BONE GRAFT BY DR. STEINER. -CARDIAC CATH WITH STENTS X [address] ON 08/24/[address] NAIK: CONCLUSIONS: 1. Coronary artery disease primarily consisting of distal occlusion of a codominant left circumflex and a long, up to 99% stenosis in the first obtuse marginal that was successfully stented with overlapping Skypoint 3.0 x 32 mm and Skypoint 3.0 x 12 mm stents with reduction of restenosis to 0% residual and improvement of flow from ZAHIRA 2 to ZAHIRA 3. The first diagonal branch, left anterior descending artery is of a small caliber and has 60% proximal stenosis. The rest of the vessels have diffuse mild to moderate plaque. 2. Well preserved global left ventricular systolic function. 3. Localized posterobasal akinesis. 4. Left ventricular end-diastolic pressure 12 mmHg. DISCUSSION AND RECOMMENDATIONS: She is being hospitalized for observation after this procedure. Dual antiplatelet therapy is being continued. She is on statin therapy that has been continued. We are also continuing her beta quentin and DANIA inhibitors. Further recommendation will be based on her hospital course. Review of Systems Constitutional: No chills, No diaphoresis, No fever EENTM: No ear pain, No blurred vision Respiratory: cough (chronic, productive of clear sputum); No dyspnea on exertion, No short of breath Cardiovascular: No chest pain, No palpitations Gastrointestinal: No abdominal pain, No diarrhea, No hematemesis, No melena, No nausea, No vomiting Genitourinary: No decreased output, No discharge Musculoskeletal: joint pain (Right hip pain radiating to suprapubic region and right buttock); No joint swelling, No muscle twitching Skin: No change in color, No change in hair/nails Psychiatric/Neurological: Denies Seizure, Denies Tremors All Other Systems Reviewed Negative Unless Noted: Yes Physical Exam Physical Exam Vital Signs Vital Signs - First Documented 02/23/22 11:37 Temp 36.6 Pulse 88 Resp 16 B/P (MAP) 121/77 (92) Capillary Refill : Height, Weight, BMI Height: 5'7.00" Weight: 165lbs. 0.0oz. 74.668408wo; 20.68 BMI Method:Stated General Appearance: No Apparent Distress, Thin HEENT: PERRL/EOMI, Moist Mucous Membranes Neck: Normal Inspection, Supple Respiratory: Lungs Clear, Normal Breath Sounds, No Accessory Muscle Use Cardiovascular: Regular Rate, Rhythm, No Edema, No Murmur, Normal Peripheral Pulses Gastrointestinal: Non Tender, Soft Back: Normal Inspection, No CVA Tenderness Extremity: Normal Inspection; No Non Tender (Mild Tenderness just distal to the right femoral head) Neurologic/Psychiatric: Alert, Oriented x3 Skin: Normal Color, Warm/Dry Lymphatic: No Adenopathy Results Results/Procedures Labs Laboratory Tests 02/23/22 12:20 Patient resulted labs reviewed. Imaging Date of Exam:02/23/22 CT ABDOMEN/PELVIS W EXAMINATION: CT abdomen and pelvis with intravenous contrast. TECHNIQUE: Multiple contiguous axial images were obtained through the abdomen and pelvis after the uneventful administration of intravenous contrast. All CT scans use one or more of the following dose optimizing techniques: automated exposure control, MA and/or KvP adjustment based on patient size and exam type or iterative reconstruction. HISTORY: Abdominal pain. COMPARISON: 11/26/2021. FINDINGS: Limited views of the lower thorax are unremarkable. The liver is normal without focal lesion. There is no biliary ductal dilation. Gallbladder is absent. Pancreas is normal. There is a small cyst in the spleen. Adrenal glands are normal. The kidneys are normal. There is no hydronephrosis. Urinary bladder is normal. Bowel is normal in caliber without obstruction or inflammation. No free fluid or air. No abdominal or pelvic lymphadenopathy. Aorta is normal in caliber without aneurysm. There are no suspicious osseous lesions. There has been a lumbar spine fusion. IMPRESSION: 1. No acute abnormality in the abdomen or pelvis. Dictated on workstation # [id number] Dict: 02/23/22 1252 Trans: 02/23/22 1259 [facility] [id number] Interpreted by: MARTINA HOPSON MD Electronically signed by: Date of Exam:02/23/22 CHEST 1 VIEW, AP/PA ONLY INDICATION: Hypotension, right hip pain. EXAMINATION: Portable chest at 12:58 PM. FINDINGS: The heart and mediastinum are normal. The lungs are clear. There are no effusions or pneumothoraces. IMPRESSION: No acute abnormalities in the chest. Dictated by: Dictated on workstation # [id number] Dict: 02/23/22 1304 Trans: 02/23/228 MARI [id number] Interpreted by: GETACHEW MCNEILL MD Electronically signed by: GETACHEW MCNEILL MD 02/23/22 1518 Date of Exam:02/23/22 PELVIS WITH RIGHT HIP 2-3VIEWS INDICATION: Right hip injury from a fall. FINDINGS: Three views of the right hip show slight deformity of the right femoral neck that could be a nondisplaced impacted fracture. IMPRESSION: Suspected impacted fracture of the basicervical region of the right femoral neck. Dictated by: Dictated on workstation # [id number] Dict: 02/23/22 1303 Trans: 02/23/228 MARI [id number] Interpreted by: GETACHEW MCNEILL MD Electronically signed by: GETACHEW MCNEILL MD 02/23/22 1518 Assessment/Plan Admission Diagnosis Closed impacted fracture of right femoral head Admission Status: Inpatient Order (span 2 midnights) Reason for Inpatient Admission: Closed impacted fracture of right femoral head Assessment and Plan Closed impacted fracture of right femoral head Hyponatremia Lactic acidosis- resolved Dehydration CKD Leukocytosis Pt was notified of the results of her imaging and would like to forgo surgery NS IV fluids PT Start on insulin regimen to decrease glucose and then maintain Continue medication for pain management Diagnosis/Problems Diagnosis/Problems (1) Hyponatremia Status: Acute (2) Dehydration Status: Acute (3) Closed impacted fracture of right hip Status: Acute COCO WINTERS DO 02/24/22 0541: History of Present Illness HPI/Chief Complaint CC: Right hip impacted fracture Source: patient Exam Limitations: no limitations Physical Exam Physical Exam General Appearance: No Apparent Distress, Chronically ill, Thin Respiratory: Lungs Clear, Normal Breath Sounds Cardiovascular: Regular Rate, Rhythm Neurologic/Psychiatric: Alert, Oriented x3 Assessment/Plan Admission Diagnosis Impacted right hip fracture Leukocytosis Elevated LFT Admission Status: Observation Supervisory-Addendum Brief Verification & Attestation Participated in pt care: history, MDM, physical Personally performed: exam, history, MDM, supervision of care Care discussed with: Medical Student Procedures: n/a Results interpretation: Verified all documentation Verification and Attestation of Medical Student E/M Service A medical student performed and documented this service in my presence. I reviewed and verified all information documented by the medical student and made modifications to such information, when appropriate. I personally performed the physical exam and medical decision making. Coco Winters Feb 24, 2022,05:41 RENZO TAYLOR Feb 23, 2022 16:29 COCO WINTERS DO Feb 24, 2022 05:41
[2022-02-23] MEDS ORDERED: HYDROmorphone 2 MG/ML VIAL (DILAUDID) IV PRN (16:30)
[2022-02-23] MEDS ORDERED: LIDOCAINE UROJET 2% GEL 10 ML PKG TOP ONE (16:30)
[2022-02-23] MEDS ORDERED: ONDANSETRON 4 MG (ZOFRAN) ORAL DISSOLVE TAB PO PRN (16:30)
[2022-02-23] MEDS ORDERED: LORazepam 0.5 MG (ATIVAN) TABLET PO PRN (16:30)
[2022-02-23] MEDS ORDERED: cloNIDine 0.1 MG (CATAPRES) TAB PO PRN (16:30)
[2022-02-23] MEDS ORDERED: diphenhydrAMINE 50 MG/ML INJ (BENADRYL) IVP PRN (16:30)
[2022-02-23] MEDS ORDERED: MILK OF MAGNESIA 400 MG/5 ML 30 ML UDC PO PRN (16:30)
[2022-02-23] MEDS ORDERED: polyethylene glycoL POWDER 17 GM (MIRALAX) PACK PO PRN (16:30)
[2022-02-23] MEDS ORDERED: LACTULOSE SYRUP 10GM/15ML (ENULOSE) 30ML UDC PO PRN (16:30)
[2022-02-23] MEDS ORDERED: ACETAMINOPHEN 325 MG TABLET PO PRN (16:30)
[2022-02-23] MEDS ORDERED: BISACODYL 10 MG SUPP (DULCOLAX) PR PRN (16:30)
[2022-02-23] MEDS ORDERED: diphenhydrAMINE 25 MG TAB (BENADRYL) PO PRN (16:30)
[2022-02-23] MEDS ORDERED: MELATONIN 3 MG TABLET PO PRN (16:30)
[2022-02-23] MEDS ORDERED: ENOXAPARIN 40 MG/0.4 ML (LOVENOX) SYR SC SCH (16:30)
[2022-02-23] MEDS ORDERED: ONDANSETRON 4 MG/2 ML (SDV) Z0FRAN IV PRN (16:30)
[2022-02-23 16:55] VITALS: BP 121/77
[2022-02-23] MEDS: ENOXAPARIN INJECTION 30 MG/0.3 ML SYR SC SCH (16:58)
[2022-02-23] MEDS: NS IV 1000 ML 1,000 ML IV SCH (17:01)
[2022-02-23] MEDS ORDERED: RT-ALBUTEROL/IPRATROPIUM 3 ML (DUONEB) VIAL INH PRN (17:15)
[2022-02-23 19:39] VITALS: BP 103/61
[2022-02-23] MEDS: RT-ALBUTEROL/IPRATROPIUM 3 ML (DUONEB) VIAL INH SCH (21:13)
[2022-02-23] MEDS: SENNOSIDES 8.6 MG (SENOKOT) TAB PO SCH (21:20)
[2022-02-23] MEDS: morphine IMMEDIATE RELEASE 15 MG TABLET PO PRN (21:20)
[2022-02-23] MEDS: inSUlin ASPART (NovoLOG) 1 UNIT/0.01 ML (CHARGE PER UNIT) SC SCH (21:20)
[2022-02-23] MEDS: DOCUSATE SODIUM 100 MG (COLACE) CAP PO SCH (21:20)
[2022-02-23] MEDS: NICOTINE 21 MG (NICODERM) PATCH TD SCH (22:11)
[2022-02-23 23:59] VITALS: BP 91/64
[2022-02-24] MEDS: NS IV 1000 ML 1,000 ML IV SCH ×2 (00:05→08:13)
[2022-02-24] MEDS ORDERED: LEVO100T7 PO (00:10)
[2022-02-24] MEDS ORDERED: CARV12.53 PO ×2 (00:17→14:25)
[2022-02-24 03:33] VITALS: BP 124/85
[2022-02-24] MEDS: inSUlin ASPART (NovoLOG) 1 UNIT/0.01 ML (CHARGE PER UNIT) SC SCH ×4 (05:20→21:04)
[2022-02-24 06:08] LABS: BASOPHILS # (AUTO) 0.1 10^3/uL (0.0-0.1); BASOPHILS % (AUTO) 1 % (0-10); EOSINOPHILS # (AUTO) 0.1 10^3/uL (0.0-0.3); EOSINOPHILS % (AUTO) 1 % (0-10); HEMATOCRIT 45 % (35-52); HEMOGLOBIN 15.1 g/dL (11.5-16.0); LYMPHOCYTES # (AUTO) 3.3 10^3/uL (1.0-4.0); LYMPHOCYTES % (AUTO) 29 % (12-44); MEAN CORPUSCULAR HEMOGLOBIN 32 pg (25-34); MEAN CORPUSCULAR HGB CONC 34 g/dL (32-36); MEAN CORPUSCULAR VOLUME 93 fL (80-99); MEAN PLATELET VOLUME 11.2 fL (9.0-12.2); MONOCYTES # (AUTO) 0.8 10^3/uL (0.0-1.0); MONOCYTES % (AUTO) 7 % (0-12); NEUTROPHILS # (AUTO) 7.2 10^3/uL (1.8-7.8); NEUTROPHILS % (AUTO) 63 % (42-75); PLATELET COUNT 262 10^3/uL (130-400); WHITE BLOOD COUNT 11.5 10^3/uL (4.3-11.0)
[2022-02-24 06:18] LABS: ALBUMIN 3.9 GM/DL (3.2-4.5); POTASSIUM 3.6 MMOL/L (3.6-5.0)
[2022-02-24 06:19] LABS: CALCIUM 9.3 MG/DL (8.5-10.1)
[2022-02-24 06:21] LABS: TOTAL PROTEIN 6.7 GM/DL (6.4-8.2)
[2022-02-24 06:23] LABS: BILIRUBIN,TOTAL 1.1 MG/DL (0.1-1.0)
[2022-02-24 06:24] LABS: CREATININE SERUM 1.1 MG/DL (0.60-1.30)
[2022-02-24] MEDS: RT-ALBUTEROL/IPRATROPIUM 3 ML (DUONEB) VIAL INH SCH ×4 (07:24→19:49)
[2022-02-24 08:02] VITALS: BP 143/72
[2022-02-24] MEDS: NICOTINE PATCH REMOVAL TP SCH (09:27)
[2022-02-24] MEDS: NICOTINE 21 MG (NICODERM) PATCH TD SCH (09:27)
[2022-02-24] MEDS: DOCUSATE SODIUM 100 MG (COLACE) CAP PO SCH ×2 (09:28→19:34)
[2022-02-24] MEDS: SENNOSIDES 8.6 MG (SENOKOT) TAB PO SCH ×2 (09:28→19:34)
[2022-02-24] MEDS: GABAPENTIN 400 MG (NEURONTIN) CAP PO SCH ×3 (09:31→19:33)
--- NOTE | 2022-02-24 10:54 | Occupational Therapy Eval ---
OT Evaluation-General/PLF Medical Diagnosis Admission Date Feb 23, 2022 at 15:39 Medical Diagnosis: Closed impacted fracture of R hip; dehydration Onset Date: Feb 23, 2022 Therapy Diagnosis Therapy Diagnosis: Reduced ADL status Height/Weight Height (Feet): 5 Height (Inches): 7.00 Weight (Pounds): 165 Weight (Ounces): 0.0 Precautions Precautions/Isolations: Fall Prevention Weight Bear Status Weight Bearing Restriction: Weight Bearing/Tolerated Location Restriction: R LE Referral Physician: Zane Referral Reason: Evaluation/Treatment Medical History Pertinent Medical History: Atrial Fib, DM, Fractures, HTN, Neuropathy, Renal Insufficiency, Smoking Current History Pt arrived by EMS after fall outside early in the morning. Pt lives alone in an apartment. She was using a cane occasionally at baseline. She was completing all ADLs/IADLs independently prior to fall. She has family and friends that live close by. Pt reports having multiple falls in the past, possibly due to low BP. Reviewed History: Yes Social History Home: Apartment Current Living Status: Alone Entry Into Home: Level Entry ADL-Prior Level of Function SCALE: Activities may be completed with or without assistive devices. 1-Hyrszdbpio-jzslurp completes the activity by him/herself with no assistance from a helper. 5-Set-up or Clean-up Assistance-helper sets up or cleans up; patient completes activity. [place] assists only prior to or following the activity. 4-Supervision or Touching Assistance-helper provides verbal cues and/or touching/steadying and/or contact guard assistance as patient completes activity. Assistance may be provided throughout the activity or intermittently. 3-Partial/Moderate Assistance-helper does LESS THAN HALF the effort. [place] lifts, holds or supports trunk or limbs, but provides less than half the effort. 2-Substantial/Maximal Assistance-helper does MORE THAN HALF the effort. [place] lifts or holds trunk or limbs and provides more than half the effort. 0-Wfetinykd-udvqyw does ALL the effort. Patient does none of the effort to complete the activity. Or, the assistance of 2 or more helpers is required for the patient to complete the activity. If activity was not attempted, code reason: 7-Patient Refused. 9-Not Applicable-not attempted and the patient did not perform the activity before the current illness, exacerbation or injury. 10-Not Attempted due to Environmental Limitations-(lack of equipment, weather restraints, etc.). 88-Not Attempted due to Medical Conditions or Safety Concerns. Self Care: Independent Functional Cognition: Independent DME/Equipment: Bath Chair, Shower Drive Self: Yes OT Current Status Subjective Pt was in bed upon arrival. She agrees to therapy eval. Appearance Pt was left sitting in recliner with all needs within reach. Mental Status/Objective Patient Orientation: Person, Place, Time, Situation Attachments: IV Current Hand Dominance: Right Upper Extremity ROM WNL Upper Extremity Strength 5/5 at shoulder inspector mechanical strength: WNL ADL-Treatment Eating (QC): 6 Oral Hygiene (QC): 5 (seated in recliner; anticipate CGA in standing at this time) On/Off Footwear (QC): 5 Toileting Hygiene (QC): 4 (per clinical judgment) Pt donned socks sitting EOB using figure 4 method. Extra time to don R foot, but no physical assistance required. Sit<>stand: SBA/CGA. Pt ambulated in the hallway with SBA/CGA but required mod verbal cues for proper walker management. Pt had 2 LOB due to ambulation due to improper technique of walker usage; pt able to self-correct each time. Initially minimal weight bearing on R LE, improved with time. Pt sat in recliner to perform oral hygiene with set up. Education OT Patient Education: Correct positioning, Energy conservation, Modified ADL techniques, Progress toward Goal/Update tx plan, Purpose of tx/functional activities, Reviewed precautions, Rehab process, Safety issues, Transfer techniques Teaching Recipient: Patient Teaching Methods: Demonstration, Discussion Response to Teaching: Verbalize Understanding, Return Demonstration, Reinforcement Needed OT [facility] Goals [facility] Goals Time Frame: Mar 03, 2022 Oral Hygiene (QC): 6 (in standing) Toileting Hygiene (QC): 6 Lower Body Dressing (QC): 5 On/Off Footwear (QC): 6 Additional Goals: 1-Demonstrate ADL Tasks, 2-Verbalize Understanding, 3-ImproveStrength/Babatunde 1=Demonstrate adherence to instructed precautions during ADL tasks. 2=Patient will verbalize/demonstrate understanding of assistive devices/modifications for ADL. 3=Patient will improve strength/tolerance for activity to enable patient to perform ADL's. OT Education/Plan Problem List/Assessment Assessment: Decreased Activ Tolerance, Decreased Safety Aware, Impaired Bed Mobility, Impaired Coordination, Impaired Funct Balance, Impaired I ADL's, Impaired Self-Care Skills Discharge Recommendations Plan/Recommendations: Continue POC Therapy Discharge Recommendati: Home & Family (pending progress) Treatment Plan/Plan of Care Treatment,Training & Education: Yes Patient would benefit from OT for education, treatment and training to promote independence in ADL's, mobility, safety and/or upper extremity function for ADL's. Plan of Care: ADL Retraining, Functional Mobility, Group Exercise/Act as Ind, UE Funct Exercise/Act Treatment Duration: Mar 03, 2022 Frequency: 3 times per week (3-5x/week) Estimated Hrs Per Day: .25 hour per day Agreement: Yes Rehab Potential: Fair Time/GCodes Start Time: 10:20 Stop Time: 10:45 Total Time Billed (hr/min): 25 Billed Treatment Time 1 visit EVM (10 min) ADL (15 min) Alexandra Su OT Feb 24, 2022 10:54
--- NOTE | 2022-02-24 11:14 | Physical Therapy Evaluation ---
PT Evaluation-General Medical Diagnosis Admission Date Feb 23, 2022 at 15:39 Medical Diagnosis: Closed impacted fracture of R hip; dehydration Onset Date: Feb 23, 2022 Therapy Diagnosis Therapy Diagnosis: debility/weakness Height/Weight Height (Feet): 5 Height (Inches): 7.00 Weight (Pounds): 165 Weight (Ounces): 0.0 Precautions Precautions/Isolations: Fall Prevention Weight Bear Status Right Lower Extremity: Right Non Weight Bearing Left Lower Extremity: Left Full Weight Bearing Referral Physician: Zane Reason for Referral: Evaluation/Treatment Medical History Pertinent Medical History: Atrial Fib, DM, Fractures, HTN, Neuropathy, Renal Insufficiency, Smoking History of Falls (past yr): Yes Prior Surgery (last 100 days): No Current History Fall off of curb Reviewed History: Yes Social History Home: Apartment Current Living Status: Alone Entry Into Home: Level Entry Prior Prior Level of Function SCALE: Activities may be completed with or without assistive devices. 8-Jitqiqknhc-ehqqhop completes the activity by him/herself with no assistance from a helper. 5-Set-up or Clean-up Assistance-helper sets up or cleans up; patient completes activity. [place] assists only prior to or following the activity. 4-Supervision or Touching Assistance-helper provides verbal cues and/or touching/steadying and/or contact guard assistance as patient completes activity. Assistance may be provided throughout the activity or intermittently. 3-Partial/Moderate Assistance-helper does LESS THAN HALF the effort. [place] lifts, holds or supports trunk or limbs, but provides less than half the effort. 2-Substantial/Maximal Assistance-helper does MORE THAN HALF the effort. [place] lifts or holds trunk or limbs and provides more than half the effort. 5-Opithhiqe-wtwevr does ALL the effort. Patient does none of the effort to complete the activity. Or, the assistance of 2 or more helpers is required for the patient to complete the activity. If activity was not attempted, code reason: 7-Patient Refused. 9-Not Applicable-not attempted and the patient did not perform the activity before the current illness, exacerbation or injury. 10-Not Attempted due to Environmental Limitations-(lack of equipment, weather restraints, etc.). 88-Not Attempted due to Medical Conditions or Safety Concerns. Bed Mobility: 6 Transfers (B,C,W/C): 6 Gait: 6 Stairs: 6 Indoor Mobility (Ambulation): Independent Stairs: Independent Prior Devices Use: Other-see list below Prior Device Use: cane PRN PT Evaluation-Current Subjective Patient reluctantly agrees to PT. Objective Patient Orientation: Normal For Age Attachments: IV ROM/Strength ROM Lower Extremities bilateral LE WFL Strength Lower Extremities 4-/5 grossly bilateral LE Integumentary/Posture Bowel Incontinence: No Bladder Incontinence: No Posture WFL Neuromuscular (Tone, Coordination, Reflexes) grossly intact Sensory Vision: Functional Hearing: Functional Hand Dominance: Right Transfers Lying to Sitting/Side of Bed(Q: 4 Sit to Stand (QC): 4 Chair/Hqs-nb-Anvbl Xfer(QC): 4 Gait Does the Patient Walk?: Yes Mode of Locomotion: Walk Anticipated Mode of Locomotion: Walk Walk 10 feet (QC): 4 Walk 50 ft with 2 Turns(QC): 4 Walk 150 ft (QC): 4 Distance: 175' Gait Assistive Device: FWW Comments/Gait Description slow reciprocal pattern Balance Sitting Static: Normal Sitting Dynamic: Normal Standing Static: Fair Standing Dynamic: Fair Assessment/Needs Patient will be seen short term by skilled PT to address functional strength and mobility to ensure safer return to home at maximum LOF. Rehab Potential: Fair PT Jail Goals Jail Goals PT Jail Goals Time Frame: Mar 05, 2022 Roll Left & Right (QC): 6 Sit to Lying (QC): 6 Lying-Sitting on Side/Bed(QC): 6 Sit to Stand (QC): 6 Chair/Emv-lc-Egevn Xfer(QC): 6 Toilet Transfer (QC): 6 Walk 10 feet (QC): 6 Walk 50ft with 2 Turns (QC): 6 Walk 150 ft (QC): 6 PT Plan Problem List Problem List: Safety Treatment/Plan Treatment Plan: Continue Plan of Care Treatment Plan: Bed Mobility, Education, Functional Activity Babatunde, Functional Strength, Gait, Safety, Therapeutic Exercise, Transfers Treatment Duration: Mar 05, 2022 Frequency: 6 times per week Estimated Hrs Per Day: .25 hour per day Patient and/or Family Agrees t: Yes Safety Risks/Education Patient Education: Gait Training Teaching Recipient: Patient Teaching Methods: Demonstration, Discussion Response to Teaching: Verbalize Understanding, Return Demonstration Time/GCodes Time In: 1020 Time Out: 1037 Total Billed Treatment Time: 17 Total Billed Treatment 1 visit EVMod 17 min ADRIEL MERCADO PT Feb 24, 2022 11:14
[2022-02-24 11:50] VITALS: BP 99/63
--- NOTE | 2022-02-24 13:38 | Progress Note - Hospitalist ---
RENZO TAYLOR 02/24/22 1338: Subjective HPI/CC On Admission Date Seen by Provider: Feb 24, 2022 Time Seen by Provider: 13:30 CC: Right hip pain 61yo F with h/o falls resulting in fractures, DMT1, CHF, CKD, and atrial fibrillation presented to the ED today with cc of right hip pain following a fall at 0200 this morning. Pt states that she was walking her dog this morning when she tripped over the sidewalk and fell on her right side. Pt states that she scooted on her butt to her home where she went to bed till about 0800, then she showered and called EMS. Pt denies feeling dizziness or experiencing a syncopal episode prior to fall but does note that she has experienced dizziness with standing and sudden movements since June of this year. ED workup found an elevated WBC, a lactic acid of 2.55, and low sodium. Pt had a CT ABD/Pelvis and CXR today that were both showed no acute abnormalities. Pt also had an XRAY of the pelvis and right hip that was suspicious for an impacted fracture of the basicervical region of the right femoral neck. Pt states that her hip pain has improved from a 10/10 upon arrival to a 7/10 but notes that the pain is worse with movement. Pt denies any nausea or vomiting but does note that 3-4 days prior to her fall, she experienced nausea and vomiting and was unable to eat du ring this time. Pt says that this has been occurring every month for the past 3- 4 months. Pt denies CP, diarrhea, SOB, and abd pain. Subjective/Events-last exam Pt is sitting in chair comfortably. Pt states that her hip pain is a 0/10 without movement but still 10/10 with movement. Pt tolerated ambulation with PT this morning. Pt has been eating without issue. Pt has no other complaints at this time.Pt denies nausea, vomiting, CP, abd pain, and SOA. Review of Systems General: No Chills, No Night Sweats HEENT: No Head Aches, No Visual Changes Pulmonary: No Dyspnea, No Cough Cardiovascular: No: Chest Pain, Palpitations Gastrointestinal: No: Nausea, Vomiting, Abdominal Pain Genitourinary: No Dysuria, No Frequency Musculoskeletal: No: neck pain, shoulder pain Neurological: No: Weakness, Numbness Focused Exam Lactate Level 02/23/22 13:47: Lactic Acid Level 2.55*H 02/23/22 15:55: Lactic Acid Level 1.23 Objective Exam Vital Signs Vital Signs Date Time Temp Pulse Resp B/P (MAP) Pulse Ox O2 Delivery O2 Flow Rate FiO2 02/24/22 11:50 36.7 65 18 99/63 (75) 94 Room Air Capillary Refill : General Appearance: No Apparent Distress, Thin HEENT: PERRL/EOMI, Moist Mucous Membranes Neck: Normal Inspection, Supple Respiratory: Lungs Clear, Normal Breath Sounds, No Accessory Muscle Use Cardiovascular: Regular Rate, Rhythm, No Edema, No Murmur, Normal Peripheral Pulses Gastrointestinal: Non Tender, Soft Back: Normal Inspection, No CVA Tenderness Extremity: Normal Inspection, Non Tender Neurologic/Psychiatric: Alert, Oriented x3 Skin: Normal Color, Warm/Dry Lymphatic: No Adenopathy Results/Procedures Lab Laboratory Tests 02/24/22 05:28 Patient resulted labs reviewed. Assessment/Plan Assessment and Plan Assess & Plan/Chief Complaint Closed impacted fracture of right femoral head Hyponatremia - resolved Lactic acidosis- resolved Dehydration CKD Leukocytosis- improving Discussed expectations and goals of treatment with patient, pt understands and agrees with plan PT DC IV fluids and telemetry Continue insulin regimen Pain management prn Diagnosis/Problems Diagnosis/Problems (1) Hyponatremia Status: Acute (2) Dehydration Status: Acute (3) Closed impacted fracture of right hip Status: Acute COCO WINTERS DO 02/24/222107: Subjective Subjective/Events-last exam Pt is doing a lot better White count is now near normal Sodium level is 125-133 today No other concerns Discharge planned for tomorrow High pain tolerance will be helpful Supervisory-Addendum Brief Verification & Attestation Participated in pt care: history, MDM, physical Personally performed: exam, history, MDM, supervision of care Care discussed with: Medical Student Procedures: n/a Results interpretation: Verified all documentation Verification and Attestation of Medical Student E/M Service A medical student performed and documented this service in my presence. I reviewed and verified all information documented by the medical student and made modifications to such information, when appropriate. I personally performed the physical exam and medical decision making. Coco Winters Feb 24, 2022,21:07 RENZO TAYLOR Feb 24, 2022 13:38 COCO WINTERS DO Feb 24, 2022 21:08
[2022-02-24] MEDS ORDERED: LEVO175T5 PO (15:31)
[2022-02-24 15:59] VITALS: BP 159/87
[2022-02-24] MEDS: ENOXAPARIN INJECTION 30 MG/0.3 ML SYR SC SCH (18:02)
[2022-02-24] MEDS: morphine IMMEDIATE RELEASE 15 MG TABLET PO PRN ×2 (18:15→21:00)
[2022-02-24 19:29] VITALS: BP 140/97
[2022-02-24] MEDS: CALCIUM CARBONATE 500 MG (TUMS) TAB.CHEW PO PRN (22:23)
[2022-02-24] MEDS: ANTACID SUSP 30 ML UDC (MYLANTA) PO PRN (22:45)
[2022-02-25 00:17] VITALS: BP 152/85
[2022-02-25] MEDS: morphine IMMEDIATE RELEASE 15 MG TABLET PO PRN ×4 (01:11→21:27)
[2022-02-25] MEDS: inSUlin ASPART (NovoLOG) 1 UNIT/0.01 ML (CHARGE PER UNIT) SC SCH ×4 (05:12→21:25)
[2022-02-25 05:30] LABS: BASOPHILS # (AUTO) 0.1 10^3/uL (0.0-0.1); BASOPHILS % (AUTO) 1 % (0-10); EOSINOPHILS # (AUTO) 0.2 10^3/uL (0.0-0.3); EOSINOPHILS % (AUTO) 2 % (0-10); HEMATOCRIT 36 % (35-52); HEMOGLOBIN 12.3 g/dL (11.5-16.0); LYMPHOCYTES % (AUTO) 28 % (12-44); MEAN CORPUSCULAR HEMOGLOBIN 32 pg (25-34); MEAN CORPUSCULAR HGB CONC 34 g/dL (32-36); MEAN CORPUSCULAR VOLUME 93 fL (80-99); MEAN PLATELET VOLUME 10.7 fL (9.0-12.2); MONOCYTES # (AUTO) 0.9 10^3/uL (0.0-1.0); MONOCYTES % (AUTO) 8 % (0-12); NEUTROPHILS # (AUTO) 6.8 10^3/uL (1.8-7.8); NEUTROPHILS % (AUTO) 62 % (42-75); PLATELET COUNT 219 10^3/uL (130-400)
[2022-02-25 05:45] LABS: ALBUMIN 3.2 GM/DL (3.2-4.5); POTASSIUM 3.8 MMOL/L (3.6-5.0)
[2022-02-25 05:47] LABS: CALCIUM 8.9 MG/DL (8.5-10.1)
[2022-02-25 05:48] LABS: TOTAL PROTEIN 5.4 GM/DL (6.4-8.2)
[2022-02-25 05:50] LABS: BILIRUBIN,TOTAL 0.9 MG/DL (0.1-1.0)
[2022-02-25 05:51] LABS: CREATININE SERUM 0.7 MG/DL (0.60-1.30)
[2022-02-25] MEDS: RT-ALBUTEROL/IPRATROPIUM 3 ML (DUONEB) VIAL INH SCH ×4 (07:04→18:48)
[2022-02-25] MEDS: NICOTINE 21 MG (NICODERM) PATCH TD SCH (08:14)
[2022-02-25] MEDS: GABAPENTIN 400 MG (NEURONTIN) CAP PO SCH ×3 (08:15→21:25)
[2022-02-25] MEDS: CALCIUM CARBONATE 500 MG (TUMS) TAB.CHEW PO PRN (08:15)
[2022-02-25] MEDS: DOCUSATE SODIUM 100 MG (COLACE) CAP PO SCH ×2 (08:15→20:41)
[2022-02-25] MEDS: SENNOSIDES 8.6 MG (SENOKOT) TAB PO SCH ×2 (08:15→21:27)
[2022-02-25] MEDS: NICOTINE PATCH REMOVAL TP SCH (08:15)
[2022-02-25 08:32] VITALS: BP 134/80
--- NOTE | 2022-02-25 11:01 | Physical Therapy Daily Note ---
PT Daily Note-Current Subjective Patient in bed pre tx, agrees to PT, has 4/10 pain in right hip, states she is a little nauseated, nurse notified. Pain Section J - Health Conditions 1. Rarely or not at all 2. Occasionally 3. Frequently 4. Almost constantly 8. Unable to answer Pain Effect on Sleep: 2 Pain Interference with Therapy: 2 Pain Interference w/Day-to-Day: 2 Appearance Patient in restroom with nurse aide post tx for shower Mental Status Patient Orientation: Person, Place, Situation Transfers SCALE: Activities may be completed with or without assistive devices. 1-Yfqdztertu-vurzlrp completes the activity by him/herself with no assistance from a helper. 5-Set-up or Clean-up Assistance-helper sets up or cleans up; patient completes activity. [place] assists only prior to or following the activity. 4-Supervision or Touching Assistance-helper provides verbal cues and/or touching/steadying and/or contact guard assistance as patient completes activity. Assistance may be provided throughout the activity or intermittently. 3-Partial/Moderate Assistance-helper does LESS THAN HALF the effort. [place] lifts, holds or supports trunk or limbs, but provides less than half the effort. 2-Substantial/Maximal Assistance-helper does MORE THAN HALF the effort. [place] lifts or holds trunk or limbs and provides more than half the effort. 2-Txyxgyjen-syrlml does ALL the effort. Patient does none of the effort to complete the activity. Or, the assistance of 2 or more helpers is required for the patient to complete the activity. If activity was not attempted, code reason: 7-Patient Refused. 9-Not Applicable-not attempted and the patient did not perform the activity before the current illness, exacerbation or injury. 10-Not Attempted due to Environmental Limitations-(lack of equipment, weather restraints, etc.). 88-Not Attempted due to Medical Conditions or Safety Concerns. Roll Left & Right (QC): 6 Lying to Sitting/Side of Bed(Q: 4 Sit to Stand (QC): 4 CGA for sit to stand Weight Bearing Right Lower Extremity: Right Non Weight Bearing Left Lower Extremity: Left Full Weight Bearing Gait Training Distance: 200' Walk 10 feet (QC): 4 Walk 50 ft with 2 Turns(QC): 4 Walk 150 ft (QC): 4 Gait Persons Needed: 1 Gait Assistive Device: FWW CGA, patient needs occasional steadying assist, she is unsteady during ambulation, lets go with one arm or the other because she is talking and has to use her hands and then loses her balance. Exercises Supine Ex: Ankle pumps, Quad Set, Glut sets, Heel Slides Supine Reps: 15 Treatments bed mobility and transfers, ambulation, LE exercise Assessment Current Status: Fair Progress improving endurance but patient is unsteady, is a fall risk PT Radiologic Technology Program Director Goals Radiologic Technology Program Director Goals PT Radiologic Technology Program Director Goals Time Frame: Mar 05, 2022 Roll Left & Right (QC): 6 Sit to Lying (QC): 6 Lying-Sitting on Side/Bed(QC): 6 Sit to Stand (QC): 6 Chair/Xam-eb-Pkjxc Xfer(QC): 6 Toilet Transfer (QC): 6 Walk 10 feet (QC): 6 Walk 50ft with 2 Turns (QC): 6 Walk 150 ft (QC): 6 PT Plan Problem List Problem List: Activity Tolerance, Functional Strength, Safety, Balance, Gait, Transfer, Bed Mobility, ROM Treatment/Plan Treatment Plan: Continue Plan of Care Treatment Plan: Bed Mobility, Education, Functional Activity [place], Functional Strength, Gait, Safety, Therapeutic Exercise, Transfers Treatment Duration: Mar 05, 2022 Frequency: 6 times per week Estimated Hrs Per Day: .25 hour per day Patient and/or Family Agrees t: Yes Safety Risks/Education Patient Education: Gait Training, Transfer Techniques, Correct Positioning, Safety Issues Teaching Recipient: Patient Teaching Methods: Demonstration, Discussion Response to Teaching: Reinforcement Needed Time/GCodes Time In: 1029 Time Out: 1047 Total Billed Treatment Time: 18 Total Billed Treatment 1 visit FA 18' BOB FANG PT Feb 25, 2022 11:01
[2022-02-25] MEDS: ANTACID SUSP 30 ML UDC (MYLANTA) PO PRN (11:37)
--- NOTE | 2022-02-25 11:37 | Occupational Ther Daily Note ---
OT Current Status-Daily Note Subjective Pt in shower with professional nursing assistant present. Pt agreeable to have OT take over the shower. Pt c/o of not getting a lot of sleep last night. Appearance Pt left lying in bed with all needs within reach. Mental Status/Objective Patient Orientation: Person, Place, Time, Situation Attachments: IV ADL-Treatment Therapy Code Descriptions/Definitions Functional [place] Measure: 0=Not Assessed/NA 4=Minimal Assistance 1=Total Assistance 5=Supervision or Setup 2=Maximal Assistance 6=Modified [place] 3=Moderate Assistance 7=Complete IndependenceSCALE: Activities may be completed with or without assistive devices. 1-Vvlszoebpf-igyiheb completes the activity by him/herself with no assistance from a helper. 5-Set-up or Clean-up Assistance-helper sets up or cleans up; patient completes activity. [place] assists only prior to or following the activity. 4-Supervision or Touching Assistance-helper provides verbal cues and/or touching/steadying and/or contact guard assistance as patient completes activity. Assistance may be provided throughout the activity or intermittently. 3-Partial/Moderate Assistance-helper does LESS THAN HALF the effort. [place] lifts, holds or supports trunk or limbs, but provides less than half the effort. 2-Substantial/Maximal Assistance-helper does MORE THAN HALF the effort. [place] lifts or holds trunk or limbs and provides more than half the effort. 2-Spgaeloul-thmrnl does ALL the effort. Patient does none of the effort to complete the activity. Or, the assistance of 2 or more helpers is required for the patient to complete the activity. If activity was not attempted, code reason: 7-Patient Refused. 9-Not Applicable-not attempted and the patient did not perform the activity before the current illness, exacerbation or injury. 10-Not Attempted due to Environmental Limitations-(lack of equipment, weather restraints, etc.). 88-Not Attempted due to Medical Conditions or Safety Concerns. Shower/Bathe Self (QC): 6 Upper Body Dressing (QC): 6 On/Off Footwear: 6 Pt completed shower 100% in sitting and was able to independently complete shower and dry self. Pt reports no concerns during the shower or dressing. She donned new gown while standing and donned bilateral socks with figure 4 method while sitting EOB. Pt is demonstrating appropriate and baseline level ADLs and does not need skilled OT services at this time. Pt will be discharged from OT services. Education OT Patient Education: Correct positioning, Modified ADL techniques, Progress toward Goal/Update tx plan, Purpose of tx/functional activities, Rehab process, Safety issues Teaching Recipient: Patient Teaching Methods: Discussion Response to Teaching: Verbalize Understanding, Return Demonstration OT Snf Goals Snf Goals Time Frame: Mar 03, 2022 Oral Hygiene (QC): 6 (in standing) Toileting Hygiene (QC): 6 Lower Body Dressing (QC): 5 On/Off Footwear (QC): 6 Additional Goals: 1-Demonstrate ADL Tasks, 2-Verbalize Understanding, 3- ImproveStrength/Bab[place]unde 1=Demonstrate adherence to instructed precautions during ADL tasks. 2=Patient will verbalize/demonstrate understanding of assistive devic es/modifications for ADL. 3=Patient will improve strength/tolerance for activity to enable patient to perform ADL's. OT Education/Plan Problem List/Assessment Assessment: No Skilled OT Needs ID'd, Impaired Funct Balance Discharge Recommendations Plan/Recommendations: Discharge/Goals Met Therapy Discharge Recommendati: Home & Family Treatment Plan/Plan of Care Treatment,Training & Education: Yes Patient would benefit from OT for education, treatment and training to promote independence in ADL's, mobility, safety and/or upper extremity function for ADL's. Plan of Care: ADL Retraining, Functional Mobility, Group Exercise/Act as Ind, UE Funct Exercise/Act Treatment Duration: Mar 03, 2022 Frequency: 3 times per week (3-5x/week) Estimated Hrs Per Day: .25 hour per day Agreement: Yes Rehab Potential: Fair Time/GCodes Start Time: 11:06 Stop Time: 11:22 Total Time Billed (hr/min): 16 Billed Treatment Time 1 visit ADL Alexandra Su OT Feb 25, 2022 11:37
--- NOTE | 2022-02-25 14:43 | Progress Note - Hospitalist ---
COURTNEYASIFRENZO MAHONEY 02/25/22 1443: Subjective HPI/CC On Admission Date Seen by Provider: Feb 25, 2022 Time Seen by Provider: 14:36 CC: Right hip impacted fracture Subjective/Events-last exam Pt is laying in bed and is notably anxious. Pt states that she had an "anxiety attack" last night about going home without help and would like to stay in the hospital another night. Pt also notes that she experienced nausea and vomitingx1 this morning but attributes it to her GERD as she has been without her PPI since admission. Pt was able to eat breakfast today following the nausea and vomiting without issue. Pt states that leg pain increased during the night but improved following ambulation with PT. Pt has no other complaints at this time.Pt denies current nausea, vomiting, CP, SOB, and abd pain. Review of Systems General: No Chills, No Night Sweats HEENT: No Head Aches, No Visual Changes Pulmonary: No Dyspnea, No Cough Cardiovascular: No: Chest Pain, Palpitations Gastrointestinal: No: Nausea, Vomiting, Abdominal Pain Genitourinary: No Dysuria, No Frequency Musculoskeletal: leg pain (right with movement); No: neck pain, shoulder pain Neurological: No: Weakness, Numbness Focused Exam Lactate Level 02/23/22 13:47: Lactic Acid Level 2.55*H 02/23/22 15:55: Lactic Acid Level 1.23 Objective Exam Vital Signs Vital Signs Date Time Temp Pulse Resp B/P (MAP) Pulse Ox O2 Delivery O2 Flow Rate FiO2 02/25/22 11:27 91 Room Air 02/25/22 08:32 36.7 84 18 134/80 (98) Capillary Refill : General Appearance: No Apparent Distress, Thin HEENT: PERRL/EOMI, Moist Mucous Membranes Neck: Normal Inspection, Supple Respiratory: Chest Non Tender, Normal Breath Sounds, No Accessory Muscle Use Cardiovascular: Regular Rate, Rhythm, No Edema, No Murmur Gastrointestinal: Non Tender, Soft Back: Normal Inspection, No CVA Tenderness Extremity: No Pedal Edema, Other (tenderness with palpation of the right hip over the femoral head area) Neurologic/Psychiatric: Alert, Oriented x3 Skin: Normal Color, Warm/Dry Lymphatic: No Adenopathy Results/Procedures Lab Laboratory Tests 02/25/22 05:15 Patient resulted labs reviewed. Assessment/Plan Assessment and Plan Assess & Plan/Chief Complaint Closed impacted fracture of right femoral head Hyponatremia - resolved Lactic acidosis- resolved Dehydration CKD Leukocytosis- improving Pt desires medication to help with her anxiety, start 1g Xanax Q6H prn PPI pain management prn Plan for discharge tomorrow Diagnosis/Problems Diagnosis/Problems (1) Hyponatremia Status: Acute (2) Dehydration Status: Acute (3) Closed impacted fracture of right hip Status: Acute NAT SANDOVAL MD 02/25/22 1711: Supervisory-Addendum Brief Verification & Attestation Participated in pt care: history, MDM, physical Personally performed: exam, history, MDM, supervision of care Care discussed with: Medical Student Procedures: n/a Patient evaluated in conjunction with medical student electronic medical record reviewed. RENZO TAYLOR Feb 25, 2022 14:43 NAT SANDOVAL MD Feb 25, 2022 17:11
--- NOTE | 2022-02-25 14:45 | Physical Therapy Progress Note ---
Therapy Progress Note Attempted Rx x2. Unable to see pt as she was in conference appointment in person with another health customer care team coach in private in her room. Rx will resume 02-26-22. MICHAEL Mccauley LEE A PTA Feb 25, 2022 14:45
[2022-02-25] MEDS ORDERED: PANTOPRAZOLE 40 MG (PROTONIX) TAB PO NR (15:00)
[2022-02-25] MEDS: ALPRAZolam 1 MG (XANAX) TAB PO PRN ×2 (15:05→21:25)
[2022-02-25] MEDS: ENOXAPARIN INJECTION 30 MG/0.3 ML SYR SC SCH (15:53)
[2022-02-25 15:55] VITALS: BP 153/79
[2022-02-26 00:40] VITALS: BP 148/74
[2022-02-26] MEDS: ALPRAZolam 1 MG (XANAX) TAB PO PRN ×2 (05:42→14:29)
[2022-02-26] MEDS: morphine IMMEDIATE RELEASE 15 MG TABLET PO PRN (05:43)
[2022-02-26 05:47] LABS: BASOPHILS # (AUTO) 0.1 10^3/uL (0.0-0.1); BASOPHILS % (AUTO) 1 % (0-10); EOSINOPHILS # (AUTO) 0.2 10^3/uL (0.0-0.3); EOSINOPHILS % (AUTO) 1 % (0-10); HEMATOCRIT 36 % (35-52); HEMOGLOBIN 11.9 g/dL (11.5-16.0); LYMPHOCYTES # (AUTO) 2.9 10^3/uL (1.0-4.0); LYMPHOCYTES % (AUTO) 22 % (12-44); MEAN CORPUSCULAR HEMOGLOBIN 31 pg (25-34); MEAN CORPUSCULAR HGB CONC 33 g/dL (32-36); MEAN CORPUSCULAR VOLUME 94 fL (80-99); MEAN PLATELET VOLUME 10.9 fL (9.0-12.2); MONOCYTES # (AUTO) 0.7 10^3/uL (0.0-1.0); MONOCYTES % (AUTO) 5 % (0-12); NEUTROPHILS # (AUTO) 8.9 10^3/uL (1.8-7.8); NEUTROPHILS % (AUTO) 70 % (42-75); PLATELET COUNT 212 10^3/uL (130-400); WHITE BLOOD COUNT 12.8 10^3/uL (4.3-11.0)
[2022-02-26 06:02] LABS: ALBUMIN 3.1 GM/DL (3.2-4.5)
[2022-02-26 06:03] LABS: POTASSIUM 4.7 MMOL/L (3.6-5.0)
[2022-02-26 06:04] LABS: CALCIUM 8.8 MG/DL (8.5-10.1)
[2022-02-26 06:05] LABS: TOTAL PROTEIN 5.4 GM/DL (6.4-8.2)
[2022-02-26 06:07] LABS: BILIRUBIN,TOTAL 0.5 MG/DL (0.1-1.0)
[2022-02-26 06:09] LABS: CREATININE SERUM 0.64 MG/DL (0.60-1.30)
[2022-02-26] MEDS: inSUlin ASPART (NovoLOG) 1 UNIT/0.01 ML (CHARGE PER UNIT) SC SCH ×2 (06:49→11:39)
[2022-02-26] MEDS: RT-ALBUTEROL/IPRATROPIUM 3 ML (DUONEB) VIAL INH SCH ×2 (07:14→10:33)
[2022-02-26 08:00] VITALS: BP 125/74
[2022-02-26] MEDS: GABAPENTIN 400 MG (NEURONTIN) CAP PO SCH ×2 (08:08→14:27)
[2022-02-26] MEDS: DOCUSATE SODIUM 100 MG (COLACE) CAP PO SCH (08:09)
[2022-02-26] MEDS: NICOTINE PATCH REMOVAL TP SCH (08:09)
[2022-02-26] MEDS: NICOTINE 21 MG (NICODERM) PATCH TD SCH (08:09)
[2022-02-26] MEDS: SENNOSIDES 8.6 MG (SENOKOT) TAB PO SCH (08:09)
[2022-02-26] MEDS ORDERED: PANTOPRAZOLE 40 MG (PROTONIX) TAB PO SCH (09:00)
--- NOTE | 2022-02-26 11:20 | Physical Therapy Daily Note ---
PT Daily Note-Current Subjective Pt sleeping, easily awakened. Eager to participate in therapy. "I feel much more confident about going home today!" Pain Section J - Health Conditions 1. Rarely or not at all 2. Occasionally 3. Frequently 4. Almost constantly 8. Unable to answer Pain Effect on Sleep: 2 Pain Interference with Therapy: 2 Pain Interference w/Day-to-Day: 2 Mental Status Patient Orientation: Person, Place, Time, Situation Transfers SCALE: Activities may be completed with or without assistive devices. 9-Yvpjfcbwvi-emxzdel completes the activity by him/herself with no assistance from a helper. 5-Set-up or Clean-up Assistance-helper sets up or cleans up; patient completes activity. [place] assists only prior to or following the activity. 4-Supervision or Touching Assistance-helper provides verbal cues and/or to uching/steadying and/or contact guard assistance as patient completes activity. Assistance may be provided throughout the activity or intermittently. 3-Partial/Moderate Assistance-helper does LESS THAN HALF the effort. [place] lifts, holds or supports trunk or limbs, but provides less than half the effort. 2-Substantial/Maximal Assistance-helper does MORE THAN HALF the effort. [place] lifts or holds trunk or limbs and provides more than half the effort. 4-Jfffqyeev-tomolj does ALL the effort. Patient does none of the effort to complete the activity. Or, the assistance of 2 or more helpers is required for the patient to complete the activity. If activity was not attempted, code reason: 7-Patient Refused. 9-Not Applicable-not attempted and the patient did not perform the activity before the current illness, exacerbation or injury. 10-Not Attempted due to Environmental Limitations-(lack of equipment, weather restraints, etc.). 88-Not Attempted due to Medical Conditions or Safety Concerns. Sit to Lying (QC): 6 Lying to Sitting/Side of Bed(Q: 6 Sit to Stand (QC): 5 Weight Bearing Right Lower Extremity: Right Weight Bearing/Tolerated Left Lower Extremity: Left Full Weight Bearing Gait Training Does the Patient Walk?: Yes Distance: 250 Walk 10 feet (QC): 5 Walk 50 ft with 2 Turns(QC): 5 Walk 150 ft (QC): 5 Gait Persons Needed: 1 Gait Assistive Device: FWW Pt ambulated with slow, but steady gait with FWW, SBA for safety. Treatments Ambulation with FWW. Pt returned to bed with all needs met. Assessment Current Status: Good Progress Demonstrated safe mobility this AM. PT Snf Goals Grades 9 12 Tutor Goals PT Grades 9 12 Tutor Goals Time Frame: Mar 05, 2022 Roll Left & Right (QC): 6 Sit to Lying (QC): 6 Lying-Sitting on Side/Bed(QC): 6 Sit to Stand (QC): 6 Chair/Jmv-rp-Dnipg Xfer(QC): 6 Toilet Transfer (QC): 6 Walk 10 feet (QC): 6 Walk 50ft with 2 Turns (QC): 6 Walk 150 ft (QC): 6 PT Plan Problem List Problem List: Activity Tolerance, Functional Strength, Safety, Balance, Gait, Transfer, Bed Mobility, ROM Treatment/Plan Treatment Plan: Continue Plan of Care Treatment Plan: Bed Mobility, Education, Functional Activity [place], Functional Strength, Gait, Safety, Therapeutic Exercise, Transfers Treatment Duration: Mar 05, 2022 Frequency: 6 times per week Estimated Hrs Per Day: .25 hour per day Patient and/or Family Agrees t: Yes Time/GCodes Time In: 920 Time Out: 938 Total Billed Treatment Time: 18 Total Billed Treatment 1, FA x 18 MINESH ORTEGA DPLisa Feb 26, 2022 11:20
[2022-02-26] MEDS ORDERED: ASPI-1238 PO (11:56)
--- NOTE | 2022-02-26 12:08 | Discharge Summary ---
Diagnosis/Chief Complaint Date of Admission Feb 23, 2022 at 15:39 Date of Discharge Discharge Date: Feb 26, 2022 Admission Diagnosis Impacted right hip fracture Leukocytosis Elevated LFT Primary Care No,Local Physician Discharge Diagnosis (1) Hyponatremia Status: Acute (2) Dehydration Status: Acute (3) Closed impacted fracture of right hip Status: Acute Discharge Summary Discharge Physical Exam Allergies: Coded Allergies: Penicillins (Verified Allergy, Unknown, 12/15/15) Vitals & I&Os Vital Signs Date Time Temp Pulse Resp B/P (MAP) Pulse Ox O2 Delivery O2 Flow Rate FiO2 02/26/22 10:33 95 Room Air 02/26/22 08:00 36.4 88 20 125/74 (91) General Appearance: No Apparent Distress, Thin Respiratory: Chest Non Tender, Lungs Clear, Normal Breath Sounds, No Accessory Muscle Use, No Respiratory Distress Cardiovascular: Regular Rate, Rhythm, No Edema, No Gallop, No JVD, No Murmur, Normal Peripheral Pulses Gastrointestinal: Normal Bowel Sounds, No Organomegaly, No Pulsatile Mass, Non Tender, Soft Extremity: Normal Inspection, No Calf Tenderness, Other (Mild tenderness over the right hip surprising there is no bruising no evidence for any significant swelling about the hip or lower extremity) Hospital Course Was the Problem List Reviewed?: Yes 61yo F with h/o falls resulting in fractures, DMT1, CHF, CKD, and atrial fibrillation presented to the ED today with cc of right hip pain following a fall at 0200 this morning. Pt states that she was walking her dog this morning when she tripped over the sidewalk and fell on her right side. Pt states that she scooted on her butt to her home where she went to bed till about 0800, then she showered and called EMS. Pt denies feeling dizziness or experiencing a syncopal episode prior to fall but does note that she has experienced dizziness with standing and sudden movements since June of this year. ED workup found an elevated WBC, a lactic acid of 2.55, and low sodium. Pt had a CT ABD/Pelvis and CXR today that were both showed no acute abnormalities. Pt also had an XRAY of the pelvis and right hip that was suspicious for an impacted fracture of the basicervical region of the right femoral neck. Pt states that her hip pain has improved from a 10/10 upon arrival to a 7/10 but notes that the pain is worse with movement. Pt denies any nausea or vomiting but does note that 3-4 days prior to her fall, she experienced nausea and vomiting and was unable to eat during this time. Pt says that this has been occurring every month for the past 3-4 months. Pt denies CP, diarrhea, SOB, and abd pain. With initiation of IV fluids BUN and creatinine return to normal as did her sodium with a creatinine down to 0.98 on discharge. She was ambulating with a walker independently. I suspect her falls are secondary to hypotension from combination of carvedilol and furosemide which contributed to her dehydration. These medications were held without evidence for hypertension or tachyarrhythmia during her hospital stay. She was advised to follow-up with [facility] in the next week or 2 and not resume these medications. She will continue her other home medications unchanged. She was advised to follow-up with Dr. BAZAN her orthopedist in the next week or 2. She will be going home with a girlfriend who will help care for her and we will be setting up home health. While Dr. Bazan is her orthopedist I do not know that he was the orthopedist contacted who did recommend conservative nonoperative medical management discussed the importance of using her wheelchair. She will likely need physical therapy but this needs to be directed by Dr. Bazan in regards to when she can initiate weightbearing on the right side. Labs (last 24 hrs) Laboratory Tests 02/25/22 15:36: Glucometer 144H 02/25/22 20:21: Glucometer 284H 02/26/22 05:19: White Blood Count 12.8H, Red Blood Count 3.80, Hemoglobin 11.9, Hematocrit 36, Mean Corpuscular Volume 94, Mean Corpuscular Hemoglobin 31, Mean Corpuscular Hemoglobin Concent 33, Red Cell Distribution Width 11.6, Platelet Count 212, Mean Platelet Volume 10.9, Immature Granulocyte % (Auto) 0, Neutrophils (%) (Auto) 70, Lymphocytes (%) (Auto) 22, Monocytes (%) (Auto) 5, Eosinophils (%) (Auto) 1, Basophils (%) (Auto) 1, Neutrophils # (Auto) 8.9H, Lymphocytes # (Auto) 2.9, Monocytes # (Auto) 0.7, Eosinophils # (Auto) 0.2, Basophils # (Auto) 0.1, Immature Granulocyte # (Auto) 0.0, Sodium Level 132L, Potassium Level 4.7, Chloride Level 101, Carbon Dioxide Level 24, Anion Gap 7, Blood Urea Nitrogen 21H, Creatinine 0.64, Estimat Glomerular Filtration Rate 102, BUN/Creatinine Ratio 33, Glucose Level 210H, Calcium Level 8.8, Corrected Calcium 9.5, Total Bilirubin 0.5, Aspartate Amino Transf (AST/SGOT) 28, Alanine Aminotransferase (ALT/SGPT) 56H, Alkaline Phosphatase 105, Total Protein 5.4L, Albumin 3.1L 02/26/22 11:07: Glucometer 160H Microbiology 02/23/22 Blood Culture - Preliminary, Resulted No growth Patient resulted labs reviewed. Pending Labs Laboratory Tests 02/26/22 05:19: White Blood Count 12.8, Red Blood Count 3.80, Hemoglobin 11.9, Hematocrit 36, Mean Corpuscular Volume 94, Mean Corpuscular Hemoglobin 31, Mean Corpuscular Hemoglobin Concent 33, Red Cell Distribution Width 11.6, Platelet Count 212, Mean Platelet Volume 10.9, Immature Granulocyte % (Auto) 0, Neutrophils (%) (Auto) 70, Lymphocytes (%) (Auto) 22, Monocytes (%) (Auto) 5, Eosinophils (%) (Auto) 1, Basophils (%) (Auto) 1, Neutrophils # (Auto) 8.9, Lymphocytes # (Auto) 2.9, Monocytes # (Auto) 0.7, Eosinophils # (Auto) 0.2, Basophils # (Auto) 0.1, Immature Granulocyte # (Auto) 0.0, Sodium Level 132, Potassium Level 4.7, Chloride Level 101, Carbon Dioxide Level 24, Anion Gap 7, Blood Urea Nitrogen 21, Creatinine 0.64, Estimat Glomerular Filtration Rate 102, BUN/Creatinine Ratio 33, Glucose Level 210, Calcium Level 8.8, Corrected Calcium 9.5, Total Bilirubin 0.5, Aspartate Amino Transf (AST/SGOT) 28, Alanine Aminotransferase (ALT/SGPT) 56, Alkaline Phosphatase 105, Total Protein 5.4, Albumin 3.1 02/26/22 11:07: Glucometer 160 Discussion & Recommendations Discharge Planning: >30 minutes discharge planning Discharge Home Medications: Active Scripts Active Aspirin EC (Aspirin) 81 Mg Tablet.dr 81 Mg PO DAILY 30 Days Reported Levothyroxine Sodium 175 Mcg Tablet 175 Mcg PO DAILY LAST FILLED 09-09-2021 #90/90 DAY SUPPLY Carvedilol 12.5 Mg Tablet 12.5 Mg PO BID FILLED 10-12-2021 #180/90 DAY SUPPLY Clopidogrel (Clopidogrel Bisulfate) 75 Mg Tablet 75 Mg PO DAILY Atorvastatin Calcium 40 Mg Tablet 40 Mg PO HS Gabapentin 800 Mg Tablet 800 Mg PO TID Tresiba Flextouch U-100 (Insulin Degludec) 100 Unit/Ml (3 Ml) Insuln.pen 35 Unit SQ DAILY Zegerid 40 mg Capsule (Omeprazole/Sodium Bicarbonate) 40 Mg-1.1 Gram Capsule 1 Each PO BID Furosemide 20 Mg Tablet 20 Mg PO DAILY LAST FILLED 10-13-2021 #30/30 DAY SUPPLY Instructions to patient/family Please see electronic discharge instructions given to patient. Problem Qualifiers (1) Closed impacted fracture of right hip: Encounter type: initial encounter Qualified Codes: S72.091A - Other fracture of head and neck of right femur, initial encounter for closed fracture NAT SANDOVAL MD Feb 26, 2022 12:08
[2022-02-26 14:58] VITALS: BP 125/74
[2022-02-28 18:22] VITALS: BP 172/95
== END 2022-02-26 11:45 | disposition home health service (06) ==
LOC: EDUNIT# 11:29 → ER 11:30 → UNDOADMOB 15:39 → 4TH 15:39 → UNDODISOB 02-26 11:45
PROVIDERS: ADMIT Internal Medicine; ATTEND Internal Medicine
DX: S72.351A Displaced comminuted fracture of shaft of right femur, initial encounter for closed fracture (principal); E87.1 Hypo-osmolality and hyponatremia; E86.0 Dehydration; D72.829 Elevated white blood cell count, unspecified; F17.210 Nicotine dependence, cigarettes, uncomplicated; E87.20 Acidosis, unspecified; E11.22 Type 2 diabetes mellitus with diabetic chronic kidney disease; N18.9 Chronic kidney disease, unspecified
CPT/HCPCS: 71045; 73502; 74177; 80053 ×4; 81000; 82947 ×4; 83605; 83690; 84145; 85007; 85025 ×3; 85027; 87040; 94640 ×4; 94760 ×4; 96361; 96372 ×3; 96374; 96375; 97162; 97166; 97530 ×2; 97535 ×2; 99284; G0378; 36415

== ENCOUNTER 2022-02-28 18:20 | Inpatient (IN) | payer MEDICARE ==
[~2022-02-28] VITALS: Ht 173 cm; Wt 61.0 kg
[2022-02-28] MEDS ORDERED: LACTATED RINGERS 1,000 ML IV ONE (18:30)
[2022-02-28 18:51] LABS: BASOPHILS # (AUTO) 0.1 10^3/uL (0.0-0.1); BASOPHILS % (AUTO) 1 % (0-10); EOSINOPHILS # (AUTO) 0.2 10^3/uL (0.0-0.3); EOSINOPHILS % (AUTO) 2 % (0-10); HEMATOCRIT 38 % (35-52); HEMOGLOBIN 12.6 g/dL (11.5-16.0); LYMPHOCYTES # (AUTO) 3.8 10^3/uL (1.0-4.0); LYMPHOCYTES % (AUTO) 28 % (12-44); MEAN CORPUSCULAR HEMOGLOBIN 32 pg (25-34); MEAN CORPUSCULAR HGB CONC 34 g/dL (32-36); MEAN CORPUSCULAR VOLUME 95 fL (80-99); MEAN PLATELET VOLUME 10.5 fL (9.0-12.2); MONOCYTES # (AUTO) 0.9 10^3/uL (0.0-1.0); MONOCYTES % (AUTO) 7 % (0-12); NEUTROPHILS # (AUTO) 8.5 10^3/uL (1.8-7.8); NEUTROPHILS % (AUTO) 63 % (42-75); PLATELET COUNT 304 10^3/uL (130-400); WHITE BLOOD COUNT 13.6 10^3/uL (4.3-11.0)
--- NOTE | 2022-02-28 18:57 | Diagnostic Imaging Report ---
EXAMINATION: Chest 1 view HISTORY: Chest pain. COMPARISON: 02/23/2022. FINDINGS: The lung volumes are normal. No focal consolidation is seen. No large pleural effusion or pneumothorax is seen. The cardiomediastinal silhouette is normal in size and contour. No acute osseous abnormality is seen. Prior fusion changes are seen in the lower thoracic spine. IMPRESSION: 1. No acute pleuroparenchymal process. Dictated by: Dictated on workstation # [id number]
--- NOTE | 2022-02-28 18:59 | Diagnostic Imaging Report ---
CLINICAL HISTORY: Right shoulder pain. COMPARISON: 12/19/2021. TECHNIQUE: Three views of the right shoulder. FINDINGS: There is no acute fracture or dislocation of the right shoulder. Chronic fracture is seen involving the lateral right clavicle. The right AC joint is intact. No suspicious focal osseous lesions. IMPRESSION: 1. No acute fracture or dislocation in the right shoulder. 2. Stable chronic fracture involving the lateral right clavicle. Dictated by: Dictated on workstation # [id number]
--- NOTE | 2022-02-28 19:00 | Diagnostic Imaging Report ---
EXAMINATION: Pelvis and right hip radiograph EXAM DATE: 02/28/2022 6:55 PM COMPARISON: 02/23/2022. HISTORY: Right hip pain TECHNIQUE: Three views FINDINGS: Stable cortical irregularity along the right femoral neck compared to prior exam. No new acute fracture is seen. The joint spaces are normal. The soft tissues are normal. IMPRESSION: 1. Stable cortical irregularity along the right femoral neck which remains concerning for nondisplaced fracture. Dictated by: Dictated on workstation # [id number]
[2022-02-28 19:16] LABS: ALBUMIN 3.5 GM/DL (3.2-4.5); CHLORIDE 99 MMOL/L (98-107); POTASSIUM 4.1 MMOL/L (3.6-5.0); SODIUM 133 MMOL/L (135-145)
[2022-02-28 19:17] LABS: CALCIUM 9.2 MG/DL (8.5-10.1); INR 0.9 (0.8-1.4); PROTHROMBIN TIME PATIENT 12.9 SEC (12.2-14.7)
[2022-02-28 19:19] LABS: GLUCOSE 224 MG/DL (70-105); TOTAL PROTEIN 6.1 GM/DL (6.4-8.2)
[2022-02-28 19:20] LABS: BILIRUBIN,TOTAL 0.4 MG/DL (0.1-1.0); CARBON DIOXIDE 27 MMOL/L (21-32)
[2022-02-28 19:22] LABS: ALKALINE PHOSPHATASE 106 U/L (40-136); CREATININE SERUM 0.68 MG/DL (0.60-1.30); GFR ESTIMATED 100
[2022-02-28 19:24] LABS: BUN/CREATININE RATIO 16
[2022-02-28 19:25] LABS: ALANINE AMINOTRANSFERASE 33 U/L (0-55); MAGNESIUM 1.8 MG/DL (1.6-2.4)
[2022-02-28 20:28] LABS: BILIRUBIN,URINE NEGATIVE (NEGATIVE); CLARITY,URINE CLEAR; COLOR,URINE YELLOW; GLUCOSE, URINE (UA) 2+ (NEGATIVE); KETONES,URINE NEGATIVE (NEGATIVE); LEUKOCYTE ESTERASE ,URINE NEGATIVE (NEGATIVE); NITRITE,URINE NEGATIVE (NEGATIVE); PROTEIN,URINE NEGATIVE (NEGATIVE)
[2022-02-28] MEDS ORDERED: KETOROLAC 30 MG/ML VIAL IVP ONE (20:30)
[2022-02-28 20:37] LABS: BACTERIA,URINE FEW /HPF; SQUAMOUS EPITHELIAL CELL,UR 0-2 /HPF
[2022-02-28 20:39] LABS: AMPHETAMINE SCREEN, URINE NEGATIVE (NEGATIVE); BARBITURATE SCREEN URINE NEGATIVE (NEGATIVE); BENZODIAZEPINES SCREEN URINE POSITIVE (NEGATIVE); CANNABINOID SCREEN, URINE POSITIVE (NEGATIVE); COCAINE SCREEN URINE NEGATIVE (NEGATIVE); METHADONE STAT NEGATIVE (NEGATIVE); OPIATE SCREEN URINE NEGATIVE (NEGATIVE); OXYCODONE STAT NEGATIVE (NEGATIVE); PROPOXYPHENE STAT NEGATIVE (NEGATIVE); TRICYCLIC ANTIDEPRESSANTS SCRE NEGATIVE (NEGATIVE)
[2022-02-28] MEDS ORDERED: NALOXONE 0.4 MG/ML 1 ML (NARCAN) VIAL IV PRN (22:00)
[2022-02-28 22:10] VITALS: BP 198/96
[2022-02-28] MEDS ORDERED: ACETAMINOPHEN 500 MG TAB (TYLENOL) ONE (22:16)
[2022-02-28] MEDS: ACETAMINOPHEN 500 MG TAB (TYLENOL) PO SCH (22:27)
[2022-02-28 22:49] VITALS: BP 148/87
[2022-02-28 23:17] VITALS: BP 134/60
[2022-03-01 03:20] VITALS: BP 167/78
[2022-03-01] MEDS: ACETAMINOPHEN 500 MG TAB (TYLENOL) PO SCH ×3 (05:15→22:20)
[2022-03-01 05:52] LABS: HEMATOCRIT 40 % (35-52); HEMOGLOBIN 13.3 g/dL (11.5-16.0); MEAN CORPUSCULAR HEMOGLOBIN 32 pg (25-34); MEAN CORPUSCULAR HGB CONC 34 g/dL (32-36); MEAN CORPUSCULAR VOLUME 95 fL (80-99); MEAN PLATELET VOLUME 10.8 fL (9.0-12.2); PLATELET COUNT 287 10^3/uL (130-400); WHITE BLOOD COUNT 9.3 10^3/uL (4.3-11.0)
[2022-03-01 06:13] LABS: CALCIUM 9.6 MG/DL (8.5-10.1); CREATININE SERUM 0.73 MG/DL (0.60-1.30); POTASSIUM 4.2 MMOL/L (3.6-5.0)
[2022-03-01 08:00] VITALS: BP 169/90
--- NOTE | 2022-03-01 11:25 | History & Physical ---
HPI History of Present Illness: 61 yo female had a fall at home related to her dog about a week ago, was admitted with right hip fracture. She states she was told she didn't need surgery unless it moved farther. She was discharged home and has been unable to get around or make food, states she didn't get pain medicine she believes because she was labelled as having a history of marijuana use. Also had clavicle fracture about 2 months ago on the right, so has some baseline problems with right shoulder. Currently has pain/muscle soreness along right side of torso, but has dull aching pain along her whole right side, sharp stabbing pain if she moves. She had vertebral burst fracture after a fall backward, and repair with rods in back last year. She also states that her discharge paperwork from last stay said she has COPD and a fib that she was not aware of. Source: patient Date seen by provider: Mar 01, 2022 Time Seen by Provider: 11:22 Attending Physician Dawna,Local Physician PCP Admitting Physician: Glory Sandoval MD Attending Physician: Glory Sandoval MD Consult Date of Admission Feb 28, 2022 at 20:22 Home Medications Home Medications Reviewed patient Home Medication Reconciliation performed by pharmacy medication reconciliations supply chain technician and/or nursing. Patients Allergies have been reviewed. 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) Recent Hopitalizations: No Alcohol Use?: No Substance type: Marijuana Tobacco type used: Cigarettes Have you traveled recently?: No Immunizations Up To Date Tetanus Booster (TDap): Unknown Influenza Vaccine Up-to-Date: No; Not Current Past Medical History PMHx: DMII HTN Palpitations HLD CRI Scleroderma Raynaud's phenomenon Osteopenia Fibromyalgia CAD- stents x 2 Chronic diastolic heart failure SurgHx: Back surgery after burst fracture 2020 Cholecystectomy Hysterectomy, bilateral salpingoophorectomy Family Medical History Significant Family History: Cancer (breast cancer, mother, , uncertain age of onset, at 61), Diabetes (father), Psychiatric Problems (alcoholism, father) Other Significan Family Hx: Review of Systems ([facility]) Constitutional: No fever EENTM: No blurred vision Respiratory: cough (has mild cough ever since CHF in Jun 2021); No short of breath Cardiovascular: chest pain (right sided, she believes is muscular) Gastrointestinal: No constipation, No diarrhea; vomiting (relates to GERD that she states was undertreated while inpatient last time) Genitourinary: No dysuria Musculoskeletal: back pain, joint pain, muscle pain Reviewed Test Results Reviewed Test Results Lab Laboratory Tests Test 02/28/22 18:40 02/28/22 20:20 03/01/22 05:18 Range/Units White Blood Count 13.6 H 9.3 4.3-11.0 10^3/uL Red Blood Count 3.97 4.19 3.80-5.11 10^6/uL Hemoglobin 12.6 13.3 11.5-16.0 g/dL Hematocrit 38 40 35-52 % Mean Corpuscular Volume 95 95 80-99 fL Mean Corpuscular Hemoglobin 32 32 25-34 pg Mean Corpuscular Hemoglobin Concent 34 34 32-36 g/dL Red Cell Distribution Width 11.9 11.8 10.0-14.5 % Platelet Count 304 287 130-400 10^3/uL Mean Platelet Volume 10.5 10.8 9.0-12.2 fL Immature Granulocyte % (Auto) 0 % Neutrophils (%) (Auto) 63 42-75 % Lymphocytes (%) (Auto) 28 12-44 % Monocytes (%) (Auto) 7 0-12 % Eosinophils (%) (Auto) 2 0-10 % Basophils (%) (Auto) 1 0-10 % Neutrophils # (Auto) 8.5 H 1.8-7.8 10^3/uL Lymphocytes # (Auto) 3.8 1.0-4.0 10^3/uL Monocytes # (Auto) 0.9 0.0-1.0 10^3/uL Eosinophils # (Auto) 0.2 0.0-0.3 10^3/uL Basophils # (Auto) 0.1 0.0-0.1 10^3/uL Immature Granulocyte # (Auto) 0.0 0.0-0.1 10^3/uL Prothrombin Time 12.9 12.2-14.7 SEC INR Comment 0.9 0.8-1.4 Activated Partial Thromboplast Time 28 24-35 SEC Sodium Level 133 L 136 135-145 MMOL/L Potassium Level 4.1 4.2 3.6-5.0 MMOL/L Chloride Level 99 101 98-107 MMOL/L Carbon Dioxide Level 27 26 21-32 MMOL/L Anion Gap 7 9 5-14 MMOL/L Blood Urea Nitrogen 11 14 7-18 MG/DL Creatinine 0.68 0.73 0.60-1.30 MG/DL Estimat Glomerular Filtration Rate 100 95 BUN/Creatinine Ratio 16 19 Glucose Level 224 H 236 H 70-105 MG/DL Calcium Level 9.2 9.6 8.5-10.1 MG/DL Corrected Calcium 9.6 8.5-10.1 MG/DL Magnesium Level 1.8 1.6-2.4 MG/DL Total Bilirubin 0.4 0.1-1.0 MG/DL Aspartate Amino Transf (AST/SGOT) 17 5-34 U/L Alanine Aminotransferase (ALT/SGPT) 33 0-55 U/L Alkaline Phosphatase 106 40-136 U/L Troponin I < 0.028 <0.028 NG/ML Total Protein 6.1 L 6.4-8.2 GM/DL Albumin 3.5 3.2-4.5 GM/DL Serum Alcohol < 10 <10 MG/DL Urine Color YELLOW Urine Clarity CLEAR Urine pH 8.0 5-9 Urine Specific [place] 1.015 L 1.016-1.022 Urine Protein NEGATIVE NEGATIVE Urine Glucose (UA) 2+ H NEGATIVE Urine Ketones NEGATIVE NEGATIVE Urine Nitrite NEGATIVE NEGATIVE Urine Bilirubin NEGATIVE NEGATIVE Urine Urobilinogen 0.2 < = 1.0 MG/DL Urine Leukocyte Esterase NEGATIVE NEGATIVE Urine RBC (Auto) 1+ H NEGATIVE Urine RBC NONE /HPF Urine WBC NONE /HPF Urine Squamous Epithelial Cells 0-2 /HPF Urine Crystals NONE /LPF Urine Bacteria FEW H /HPF Urine Casts NONE /LPF Urine Mucus NEGATIVE /LPF Urine Culture Indicated NO Urine Opiates Screen NEGATIVE NEGATIVE Urine Oxycodone Screen NEGATIVE NEGATIVE Urine Methadone Screen NEGATIVE NEGATIVE Urine Propoxyphene Screen NEGATIVE NEGATIVE Urine Barbiturates Screen NEGATIVE NEGATIVE Ur Tricyclic Antidepressants Screen NEGATIVE NEGATIVE Urine Phencyclidine Screen NEGATIVE NEGATIVE Urine Amphetamines Screen NEGATIVE NEGATIVE Urine Methamphetamines Screen NEGATIVE NEGATIVE Urine Benzodiazepines Screen POSITIVE H NEGATIVE Urine Cocaine Screen NEGATIVE NEGATIVE Urine Cannabinoids Screen POSITIVE H NEGATIVE Radiology Hip/pelvis xray 02/28/22: IMPRESSION: 1. Stable cortical irregularity along the right femoral neck which remains concerning for nondisplaced fracture. Physical Exam-(CHC) Physical Exam Vital Signs VS - Last 72 Hours, by Label 02/28/22 02/28/22 02/28/22 02/28/22 18:22 21:03 22:10 22:10 Temp 37.1 37.1 36.9 Pulse 90 85 82 Resp 17 17 17 B/P (MAP) 172/95 (120) 173/87 198/96 (130) Pulse Ox 95 96 O2 Delivery Room Air Room Air Room Air 02/28/22 02/28/22 03/01/22 03/01/22 22:49 23:17 03:20 08:00 Temp 36.2 36.5 36.3 Pulse 83 77 83 Resp 16 16 16 B/P (MAP) 148/87 (107) 134/60 (84) 167/78 (107) 169/90 (116) Pulse Ox 97 96 98 O2 Delivery Room Air Room Air Room Air 03/01/22 11:54 Temp 36.9 Pulse 81 Resp 16 B/P (MAP) 139/76 (97) Pulse Ox 98 O2 Delivery Room Air Capillary Refill : General Appearance: no apparent distress Respiratory: lungs clear, normal breath sounds Cardiovascular: regular rate, rhythm, no murmur Peripheral Pulses: 2+ Dorsalis Pedis (R), 2+ Left Dors-Pedis (L) Gastrointestinal: normal bowel sounds, non tender, soft Extremities: no pedal edema Neurologic/Psychiatric: alert, normal mood/affect Skin: normal color, warm/dry Assessment/Plan Assessment/Plan Admission Status: Inpatient Order (span 2 midnights) Reason for Inpatient Admission: Hip fracture, multiple comorbidities (1) Closed impacted fracture of right hip Status: Acute Assessment & Plan: Not well delineated on xray and having difficulty managing at home, will obtain CT. IRF consult, PT/OT. Oxycodone prn pain. Qualifiers: (2) Hypertension Status: Chronic Assessment & Plan: Due to frequent falls and dizziness, blood pressure management has been allowing higher end BP, not on anti-hypertensive currently. Monitor. Qualifiers: Qualified Codes: I10 - Essential (primary) hypertension (3) CAD (coronary artery disease) Status: Chronic Assessment & Plan: Resume home medications. Qualifiers: Qualified Codes: I25.10 - Atherosclerotic heart disease of [place] coronary artery without angina pectoris (4) IDDM (insulin dependent diabetes mellitus) Status: Chronic Assessment & Plan: Sliding scale insulin and diabetic diet. (5) Hyponatremia Status: Acute Assessment & Plan: Resolved overnight. (6) Right clavicle fracture Status: Chronic Assessment & Plan: Contributing to her difficulty taking care of herself at home given on same side as hip injury. Qualifiers: (7) Falls Status: Chronic Assessment & Plan: Recurrent falls with serious injuries. PT. Qualifiers: Qualified Codes: W19.XXXS - Unspecified fall, sequela (8) CHF (congestive heart failure) Status: Chronic Assessment & Plan: No current evidence of exacerbation. Qualifiers: Qualified Codes: I50.32 - Chronic diastolic (congestive) heart failure (9) DVT prophylaxis Status: Acute Assessment & Plan: SCDs. GLORY SANDOVAL MD Mar 01, 2022 11:25
[2022-03-01] MEDS ORDERED: PATIENT MAY USE OWN MED,SINGLE MED PO SCH (11:30)
--- NOTE | 2022-03-01 11:39 | Physical Therapy Evaluation ---
PT Evaluation-General Medical Diagnosis Admission Date Feb 28, 2022 at 20:22 Medical Diagnosis: closed impacted right hip fracture Onset Date: Feb 19, 2022 Therapy Diagnosis Therapy Diagnosis: impaired mobility/weakness Height/Weight Height (Feet): 5 Height (Inches): 7.00 Weight (Pounds): 165 Weight (Ounces): 0.0 Precautions Precautions/Isolations: Fall Prevention, Standard Precautions Referral Physician: Jaime Reason for Referral: Evaluation/Treatment Medical History Pertinent Medical History: Atrial Fib, DM, Fractures, HTN, Neuropathy, Renal I nsufficiency, Smoking Current History ER secondary to inability to care for self Reviewed History: Yes Social History Home: Apartment Current Living Status: Alone Entry Into Home: Level Entry Prior Prior Level of Function SCALE: Activities may be completed with or without assistive devices. 9-Vvnyxnwnoe-crbhrta completes the activity by him/herself with no assistance from a helper. 5-Set-up or Clean-up Assistance-helper sets up or cleans up; patient completes activity. [place] assists only prior to or following the activity. 4-Supervision or Touching Assistance-helper provides verbal cues and/or touching/steadying and/or contact guard assistance as patient completes activity. Assistance may be provided throughout the activity or intermittently. 3-Partial/Moderate Assistance-helper does LESS THAN HALF the effort. [place] lifts, holds or supports trunk or limbs, but provides less than half the effort. 2-Substantial/Maximal Assistance-helper does MORE THAN HALF the effort. Batt[place] lifts or holds trunk or limbs and provides more than half the effort. 8-Btejbpwln-ilowtl does ALL the effort. Patient does none of the effort to complete the activity. Or, the assistance of 2 or more helpers is required for the patient to complete the activity. If activity was not attempted, code reason: 7-Patient Refused. 9-Not Applicable-not attempted and the patient did not perform the activity before the current illness, exacerbation or injury. 10-Not Attempted due to Environmental Limitations-(lack of equipment, weather restraints, etc.). 88-Not Attempted due to Medical Conditions or Safety Concerns. Bed Mobility: 6 Transfers (B,C,W/C): 6 Gait: 6 Indoor Mobility (Ambulation): Independent Stairs: Not Applicalbe Prior Devices Use: Walker PT Evaluation-Current Subjective Patient agrees to PT. Pain Numeric Pain Scale: 5-Moderate Pain Location: Right Location Body Site: Hip Pain Description: Acute Objective Patient Orientation: Normal For Age ROM/Strength ROM Lower Extremities bilateral LE WFL Strength Lower Extremities 4-/5 grossly bilateral LE all planes Integumentary/Posture Integumentary refer to nursing notes Bowel Incontinence: No Bladder Incontinence: No Posture WFL Neuromuscular (Tone, Coordination, Reflexes) grossly intact Sensory Vision: Functional Hearing: Functional Transfers Lying to Sitting/Side of Bed(Q: 6 Sit to Stand (QC): 4 Chair/Qxa-al-Ckplm Xfer(QC): 4 Toilet Transfer (QC): 4 Gait Mode of Locomotion: Walk Anticipated Mode of Locomotion: Walk Walk 10 feet (QC): 4 Walk 50 ft with 2 Turns(QC): 4 Walk 150 ft (QC): 4 Distance: 250' Gait Assistive Device: FWW Comments/Gait Description slow, steady, reciprocal pattern Balance Sitting Static: Normal Sitting Dynamic: Normal Standing Static: Normal Standing Dynamic: Normal Assessment/Needs Patient will be seen short term by skilled PT to address functional strength and mobility to improve current LOF to safely return to home. Patient reports she doesn't have help at home and no one to grocery shop or assist with ADL's PRN. 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 Mechanic Goals Mcfp Goals PT Mcfp Goals Time Frame: Mar 12, 2022 Roll Left & Right (QC): 6 Sit to Lying (QC): 6 Lying-Sitting on Side/Bed(QC): 6 Sit to Stand (QC): 6 Chair/Ajk-iu-Gfmsv Xfer(QC): 6 Toilet Transfer (QC): 6 Walk 10 feet (QC): 6 Walk 50ft with 2 Turns (QC): 6 Walk 150 ft (QC): 6 PT Plan Problem List Problem List: Activity Tolerance, Functional Strength, Safety, Balance, Gait, Transfer, Bed Mobility Treatment/Plan Treatment Plan: Continue Plan of Care Treatment Plan: Bed Mobility, Education, Functional Activity [place], Functional Strength, Gait, Safety, Therapeutic Exercise, Transfers Treatment Duration: Mar 12, 2022 Frequency: 6 times per week Estimated Hrs Per Day: .25 hour per day Patient and/or Family Agrees t: Yes Time/GCodes Time In: 1020 Time Out: 1035 Total Billed Treatment Time: 15 Total Billed Treatment 1 visit EVModC 15 min ADRIEL MERCADO PT Mar 01, 2022 11:39
[2022-03-01 11:54] VITALS: BP 139/76
[2022-03-01] MEDS: GABAPENTIN 400 MG (NEURONTIN) CAP PO SCH ×2 (12:28→20:14)
[2022-03-01] MEDS ORDERED: NON-FORMULARY MEDICATION 1 EA EA (Gabapentin 800 MG) PO SCH (13:00)
--- NOTE | 2022-03-01 13:39 | Occupational Therapy Eval ---
OT Evaluation-General/PLF Medical Diagnosis Admission Date Feb 28, 2022 at 20:22 Medical Diagnosis: closed impacted right hip fracture Onset Date: Feb 19, 2022 Therapy Diagnosis Therapy Diagnosis: n/a Height/Weight Height (Feet): 5 Height (Inches): 7.00 Weight (Pounds): 165 Weight (Ounces): 0.0 Precautions Precautions/Isolations: Fall Prevention, Standard Precautions Referral Physician: Jaime Referral Reason: Evaluation/Treatment Medical History Pertinent Medical History: Atrial Fib, DM, Fractures, HTN, Neuropathy, Renal Insufficiency, Smoking Current History EMS from home, c/o R shoulder and hip pain, inability to take care of self. Pt discharged from hospital Monday02/26/22 Social History Home: Apartment Current Living Status: Alone Entry Into Home: Level Entry ADL-Prior Level of Function SCALE: Activities may be completed with or without assistive devices. 4-Zaezvjghwx-hcqkprw completes the activity by him/herself with no assistance from a helper. 5-Set-up or Clean-up Assistance-helper sets up or cleans up; patient completes activity. [place] assists only prior to or following the activity. 4-Supervision or Touching Assistance-helper provides verbal cues and/or touching/steadying and/or contact guard assistance as patient completes activity. Assistance may be provided throughout the activity or intermittently. 3-Partial/Moderate Assistance-helper does LESS THAN HALF the effort. [place] lifts, holds or supports trunk or limbs, but provides less than half the effort. 2-Substantial/Maximal Assistance-helper does MORE THAN HALF the effort. [place] lifts or holds trunk or limbs and provides more than half the effort. 7-Drkqjekae-clruaj does ALL the effort. Patient does none of the effort to complete the activity. Or, the assistance of 2 or more helpers is required for the patient to complete the activity. If activity was not attempted, code reason: 7-Patient Refused. 9-Not Applicable-not attempted and the patient did not perform the activity before the current illness, exacerbation or injury. 10-Not Attempted due to Environmental Limitations-(lack of equipment, weather restraints, etc.). 88-Not Attempted due to Medical Conditions or Safety Concerns. ADL PLOF Comments Pt reports IND with ADLs and functional mobility at PLOF using a walker. she discharged from the hospital on Monday02/26/22, and had difficulty taking care of herself. Pt reports she was unable to get off of a toilet for 3 hours, she was only drinking ensure and water. when she attempted to make a glass of water she kept spilling it. She states she has DM, so she has to watch what she consumes, but is unable to make meals or get groceries delivered due to not having support in the area. Self Care: Independent Functional Cognition: Independent DME/Equipment: Bath Chair, Shower OT Current Status Subjective Pt in bed, agreeable to OT tx. Mental Status/Objective Patient Orientation: Person, Place, Time, Situation Current Upper Extremity ROM WFL Upper Extremity Strength grossly 4+/5 ADL-Treatment Eating (QC): 6 Oral Hygiene (QC): 6 Shower/Bathe Self (QC): 6 (Per pt report, able to wash/dry all parts in shower this AM with nursing) On/Off Footwear (QC): 6 (IND donning gripper socks.) Toileting Hygiene (QC): 6 Other Treatments Pt in bed, transferred supine to sit EOB independently. Pt donned gripper socks, then used FWW to go to bathroom for toileting and hand hygiene (independent). Pt used FWW to return to recliner. She states her main concerns with going home are being able to cook meals, eat, and obtain groceries. She also states she was stuck on the toilet for 3 hours and unable to get up. She had difficulty fixing a glass of water due to spilling it. OT educated pt with grocery delivery options to [place] including [employer] delivery. She verbalized understanding but states she is unable to fix any meals. OT asked pt about frozen meals or microwave options, but pt states with her DM she has to watch what she eats. Pt did not appear open to suggestions from therapist. OT educated pt on benefits of walker basket to carry items, and cups with lids/tupperware in order to transport food/drinks, she verbalized understanding. Pt appears anxious about thought of returning home, and feels like she is unable to manage, although she was independent with self care items with OT. Post tx, pt in recliner, call light in reach and all needs met, lunch in front of pt. Education OT Patient Education: Correct positioning, Energy conservation, Exercise program, Modified ADL techniques, Progress toward Goal/Update tx plan, Purpose of tx/functional activities, Rehab process Teaching Recipient: Patient Teaching Methods: Discussion Response to Teaching: Verbalize Understanding OT Sander Wooden Pencils Goals Sander Wooden Pencils Goals 1=Demonstrate adherence to instructed precautions during ADL tasks. 2=Patient will verbalize/demonstrate understanding of assistive devices/modifications for ADL. 3=Patient will improve strength/tolerance for activity to enable patient to perform ADL's. OT Education/Plan Problem List/Assessment Assessment: No Skilled OT Needs ID'd No skilled OT services indicated at this time as pt is at her PLOF and independent with ADLs. She had concerns with cooking/groceries, OT addressed various options with pt during this tx (see tx note). D/C from OT at this time. Discharge Recommendations Plan/Recommendations: Discharge/Goals Met Therapy Discharge Recommendati: Assisted Living, Meals on Wheels Equpiment Recommendations-D/C: Walker Bag or Basket Comment At this point, pt would benefit from [facility] vs home with meals on wheels. Treatment Plan/Plan of Care Patient would benefit from OT for education, treatment and training to promote independence in ADL's, mobility, safety and/or upper extremity function for ADL's. Plan of Care: ADL Retraining, Functional Mobility Treatment Duration: Mar 01, 2022 Frequency: 1 time per week (eval only) Rehab Potential: Fair Time/GCodes Start Time: 12:52 Stop Time: 13:15 Total Time Billed (hr/min): 23 Billed Treatment Time 1, EVL (10'), ADL (13') YUNIEL GILBERT OT Mar 01, 2022 13:39
[2022-03-01] MEDS ORDERED: NICOTINE 14 MG (NICODERM) PATCH TD NR (14:30)
[2022-03-01 15:36] VITALS: BP 163/89
--- NOTE | 2022-03-01 16:23 | Diagnostic Imaging Report ---
PROCEDURE: CT right lower extremity without contrast. TECHNIQUE: Axially acquired CT was obtained through the right lower extremity without intravenous contrast. Coronal and sagittal reformations were also performed. Auto Exposure Controls were utilized during the CT exam to meet ALARA standards for radiation dose reduction. INDICATION: Fall yesterday with right hip pain. FINDINGS: The femoroacetabular alignment is normal. There is an acute fracture of the right femoral neck in a subcapital location. No significant displacement is seen. The rami appear to be intact. IMPRESSION: Acute subcapital right hip fracture. Dictated by: Dictated on workstation # [id number]
[2022-03-01 19:29] VITALS: BP 133/72
[2022-03-02 00:35] VITALS: BP 135/72
[2022-03-02 04:03] VITALS: BP 138/79
[2022-03-02 05:44] LABS: HEMATOCRIT 38 % (35-52); HEMOGLOBIN 12.7 g/dL (11.5-16.0); MEAN CORPUSCULAR HEMOGLOBIN 31 pg (25-34); MEAN CORPUSCULAR HGB CONC 33 g/dL (32-36); MEAN CORPUSCULAR VOLUME 94 fL (80-99); MEAN PLATELET VOLUME 10.6 fL (9.0-12.2); PLATELET COUNT 324 10^3/uL (130-400)
[2022-03-02] MEDS: LEVOTHYROXINE 100 MCG (LEVOTHROID) TAB PO SCH (06:04)
[2022-03-02] MEDS: LEVOTHYROXINE 75 MCG (LEVOTHROID) TABLET PO SCH (06:04)
[2022-03-02] MEDS: ACETAMINOPHEN 500 MG TAB (TYLENOL) PO SCH ×2 (06:05→13:11)
[2022-03-02 06:07] LABS: CALCIUM 9.1 MG/DL (8.5-10.1); CREATININE SERUM 0.77 MG/DL (0.60-1.30); POTASSIUM 4.3 MMOL/L (3.6-5.0)
[2022-03-02 07:51] VITALS: BP 156/82
[2022-03-02] MEDS ORDERED: NON-FORMULARY MEDICATION 1 EA EA (Levothyroxine Sodium 175 MCG) PO SCH (09:00)
--- NOTE | 2022-03-02 09:15 | Consultation - Ortho ---
Consult - Ortho Subjective Date of Exam 03/02/22 Chief Complaint Right Hip Pain HPI/Events since last exam Fall ~1 week ago with right hip pain, repeat xray yesterday suspicious for nondisplaced femoral neck fracture and CT confirmed it, I was asked to consult in regards to the fracture Medical, Surgical History see admit Social History see admit Family History see admit Review of Systems - Allergies: Coded Allergies: Penicillins (Verified Allergy, Unknown, 12/15/15) Home Meds Active Scripts Aspirin (Aspirin EC) 81 Mg Tablet., 81 MG PO DAILY for 30 Days, TAB Prov:NAT SANDOVAL MD 02/26/22 Reported Medications Levothyroxine Sodium (Levothyroxine Sodium) 175 Mcg Tablet, 175 MCG PO DAILY, TAB LAST FILLED 09-09-2021 #90/90 DAY SUPPLY 02/24/22 Atorvastatin Calcium (Atorvastatin Calcium) 40 Mg Tablet, 40 MG PO HS, TAB 12/21/21 Gabapentin (Gabapentin) 800 Mg Tablet, 800 MG PO TID, TAB 12/19/21 Insulin Degludec (Tresiba Flextouch U-100) 100 Unit/Ml (3 Ml) Insuln.pen, 35 UNIT SQ DAILY, EA 08/24/21 Omeprazole/Sodium Bicarbonate (Zegerid 40 mg Capsule) 40 Mg-1.1 Gram Capsule, 1 EACH PO BID, CAP 08/24/21 Discontinued Reported Medications Clopidogrel Bisulfate (Clopidogrel) 75 Mg Tablet, 75 MG PO DAILY, TAB 12/21/21 Carvedilol (Carvedilol) 12.5 Mg Tablet, 12.5 MG PO BID, TAB FILLED 10-12-2021 #180/90 DAY SUPPLY 02/24/22 Furosemide (Furosemide) 20 Mg Tablet, 20 MG PO DAILY, TAB LAST FILLED 10-13-2021 #30/30 DAY SUPPLY 08/24/21 Cyclobenzaprine HCl (Cyclobenzaprine HCl) 10 Mg Tablet, 10 MG PO HS PRN for MUSCLE SPASMS, TAB 09/11/20 Discontinued Scripts Carvedilol (Carvedilol) 12.5 Mg Tablet, 12.5 MG PO BID for 90 Days, #180 TAB Prov:ASHLYN WINTERS DO 02/24/22 Levothyroxine Sodium (Levothyroxine Sodium) 100 Mcg Tablet, 175 MCG PO DAILY for 1 Day, #90 TAB LAST FILLED 05-28-2021 #90/90 DAY SUPPLY Prov:ASHLYN WINTERS DO 02/24/22 Hydrocodone Bit/Acetaminophen (HYDROcodone/APAP 5 MG/325 MG TAB) 1 Tab Tab, 1 EA PO Q6H PRN for MOD, #28 TAB Prov:SHE UP MD 12/21/21 Objective Exam Right Leg: No shortening, no malrotation, able to DF ankle, sensation grossly intact to light touch Vital Signs Vital Signs Date Time Temp Pulse Resp B/P (MAP) Pulse Ox O2 Delivery O2 Flow Rate FiO2 03/02/22 07:51 36.4 78 18 156/82 (106) 98 Room Air 03/02/22 04:03 36.9 76 18 138/79 (98) 97 Room Air 03/02/22 00:35 37.0 87 18 135/72 (93) 96 Room Air 03/01/22 19:29 37.5 93 18 133/72 (92) 98 Room Air 03/01/22 15:36 37.5 88 16 163/89 (113) 99 Room Air 03/01/22 11:54 36.9 81 16 139/76 (97) 98 Room Air I & O 03/02/22 07:00 Intake Total 1610 ml Balance 1610 ml Lab Results Laboratory Tests 03/02/22 05:25: White Blood Count 10.0, Red Blood Count 4.07, Hemoglobin 12.7, Hematocrit 38, M chanda Corpuscular Volume 94, Mean Corpuscular Hemoglobin 31, Mean Corpuscular Hemoglobin Concent 33, Red Cell Distribution Width 11.7, Platelet Count 324, Mean Platelet Volume 10.6, Sodium Level 134L, Potassium Level 4.3, Chloride Level 100, Carbon Dioxide Level 24, Anion Gap 10, Blood Urea Nitrogen 19H, Creatinine 0.77, Estimat Glomerular Filtration Rate 88, BUN/Creatinine Ratio 25, Glucose Level 242H, Calcium Level 9.[address] of the right hip dated 03/01/22 was reviewed from PACS and demonstrated an impacted subcapital fracture of the right hip Assessment and Plan Assessment Right Subcapital Femoral Neck Fracture Problem List Right Subcapital Femoral Neck Fracture Plan Discussed options for treatment including conservative and surgical measures. Discussed that conservative measures would be serial radiographs and would be converted to surgical management for any displacement or nonunion. Discussed that surgical intervention would involve placing screws percutaneously across the fracture site. Discussed the risks and benefits of both. All current questions were answered. At this point, the patient is unsure how she would like to proceed; will await decision. Final Diagonsis Right Subcapital Femoral Neck Fracture Level of the visit: Level 3 (nonbillable) CATHY GUTIERREZ MD Mar 02, 2022 09:15
[2022-03-02] MEDS: PANTOPRAZOLE 40 MG (PROTONIX) TAB PO SCH ×2 (09:21→21:00)
[2022-03-02] MEDS: GABAPENTIN 400 MG (NEURONTIN) CAP PO SCH ×3 (09:21→22:10)
[2022-03-02] MEDS: NICOTINE 14 MG (NICODERM) PATCH TD SCH (09:21)
[2022-03-02] MEDS: ASPIRIN E.C. 81 MG (ECOTRIN) TAB PO SCH (09:22)
[2022-03-02] MEDS: NICOTINE PATCH REMOVAL TP SCH (09:22)
--- NOTE | 2022-03-02 10:17 | Physical Therapy Daily Note ---
PT Daily Note-Current Subjective Patient in bed pre tx, agrees to PT, has 5/10 pain in right hip. Pain Section J - Health Conditions 1. Rarely or not at all 2. Occasionally 3. Frequently 4. Almost constantly 8. Unable to answer Pain Effect on Sleep: 2 Pain Interference with Therapy: 2 Pain Interference w/Day-to-Day: 2 Appearance Patient in bed post tx with nurse call, phone, tray, all needs met. Mental Status Patient Orientation: Person, Place, Situation Transfers SCALE: Activities may be completed with or without assistive devices. 0-Wxfcaxrovv-lnymmno completes the activity by him/herself with no assistance from a helper. 5-Set-up or Clean-up Assistance-helper sets up or cleans up; patient completes activity. [place] assists only prior to or following the activity. 4-Supervision or Touching Assistance-helper provides verbal cues and/or touching/steadying and/or contact guard assistance as patient completes activity. Assistance may be provided throughout the activity or intermittently. 3-Partial/Moderate Assistance-helper does LESS THAN HALF the effort. [place] lifts, holds or supports trunk or limbs, but provides less than half the effort. 2-Substantial/Maximal Assistance-helper does MORE THAN HALF the effort. [place] lifts or holds trunk or limbs and provides more than half the effort. 1-Uofosnjtd-gjwdjz does ALL the effort. Patient does none of the effort to complete the activity. Or, the assistance of 2 or more helpers is required for the patient to complete the activity. If activity was not attempted, code reason: 7-Patient Refused. 9-Not Applicable-not attempted and the patient did not perform the activity before the current illness, exacerbation or injury. 10-Not Attempted due to Environmental Limitations-(lack of equipment, weather restraints, etc.). 88-Not Attempted due to Medical Conditions or Safety Concerns. Roll Left & Right (QC): 6 Sit to Lying (QC): 4 Lying to Sitting/Side of Bed(Q: 4 Sit to Stand (QC): 4 SBA with supine <-> sit and sit <-> stand Gait Training Distance: 250' Walk 10 feet (QC): 4 Walk 50 ft with 2 Turns(QC): 4 Walk 150 ft (QC): 4 Gait Persons Needed: 1 Gait Assistive Device: FWW SBA, slow but steady ambulation, states doctor told her to not bear much weight on her right leg so she performs toe touch on right side Exercises Supine Ex: Ankle pumps, Heel Slides Supine Reps: 20 Treatments bed mobility and transfers, ambulation, LE ROM Assessment Current Status: Fair Progress patient less impulsive and more steady with ambulation than her last recent visit PT Qa Analyst Goals Shelter Goals PT Shelter Goals Time Frame: Mar 12, 2022 Roll Left & Right (QC): 6 Sit to Lying (QC): 6 Lying-Sitting on Side/Bed(QC): 6 Sit to Stand (QC): 6 Chair/Xwt-vz-Ihvnn Xfer(QC): 6 Toilet Transfer (QC): 6 Walk 10 feet (QC): 6 Walk 50ft with 2 Turns (QC): 6 Walk 150 ft (QC): 6 PT Plan Problem List Problem List: Activity Tolerance, Functional Strength, Safety, Balance, Gait, Transfer, Bed Mobility, ROM Treatment/Plan Treatment Plan: Continue Plan of Care Treatment Plan: Bed Mobility, Education, Functional Activity Babatnude, Functional Strength, Gait, Safety, Therapeutic Exercise, Transfers Treatment Duration: Mar 12, 2022 Frequency: 6 times per week Estimated Hrs Per Day: .25 hour per day Patient and/or Family Agrees t: Yes Safety Risks/Education Patient Education: Gait Training, Transfer Techniques, Correct Positioning, Safety Issues Teaching Recipient: Patient Teaching Methods: Demonstration, Discussion Response to Teaching: Reinforcement Needed Time/GCodes Time In: 923 Time Out: 933 Total Billed Treatment Time: 10 Total Billed Treatment 1 visit FA BOB MAYNARD PT Mar 02, 2022 10:17
[2022-03-02 11:17] VITALS: BP 175/83
--- NOTE | 2022-03-02 11:29 | Progress Note ---
Subjective Subjective/Events-last exam Pt states she is feeling pretty well. She was very happy with Dr. Baird's discussion and she is planning on proceeding with surgery tomorrow. Objective Exam Last Set of Vital Signs Vital Signs Date Time Temp Pulse Resp B/P (MAP) Pulse Ox O2 Delivery O2 Flow Rate FiO2 03/02/22 11:17 37.2 86 18 175/83 (113) 99 Room Air Capillary Refill : I&O Intake and Output 03/02/22 00:00 Intake Total 1310 ml Output Total 400 ml Balance 910 ml Intake Oral 1310 ml Output Urine Total 400 ml # Voids 5 # Bowel Movements 1 General: Alert, No Acute Distress Neuro: Normal Speech Psych/Mental Status: Mental Status NL Results/Procedures Lab Laboratory Tests 03/02/22 05:25: White Blood Count 10.0, Red Blood Count 4.07, Hemoglobin 12.7, Hematocrit 38, Mean Corpuscular Volume 94, Mean Corpuscular Hemoglobin 31, Mean Corpuscular Hemoglobin Concent 33, Red Cell Distribution Width 11.7, Platelet Count 324, Mean Platelet Volume 10.6, Sodium Level 134L, Potassium Level 4.3, Chloride Level 100, Carbon Dioxide Level 24, Anion Gap 10, Blood Urea Nitrogen 19H, Creatinine 0.77, Estimat Glomerular Filtration Rate 88, BUN/Creatinine Ratio 25, Glucose Level 242H, Calcium Level 9.1 Radiology Hip/pelvis xray 02/28/22: IMPRESSION: 1. Stable cortical irregularity along the right femoral neck which remains concerning for nondisplaced fracture. Assessment/Plan Assessment/Plan (1) Closed impacted fracture of right hip Status: Acute Assessment & Plan: Not well delineated on xray and having difficulty managing at home, will obtain CT. IRF consult, PT/OT. Oxycodone prn pain. 03/02/22 CT confirmed fracture, Ortho consulted, plan for surgery tomorrow. Qualifiers: (2) Hypertension Status: Chronic Assessment & Plan: Due to frequent falls and dizziness, blood pressure man agement has been allowing higher end BP, not on anti-hypertensive currently. Monitor. Qualifiers: Qualified Codes: I10 - Essential (primary) hypertension (3) CAD (coronary artery disease) Status: Chronic Assessment & Plan: Resume home medications. Qualifiers: Qualified Codes: I25.10 - Atherosclerotic heart disease of [place] coronary artery without angina pectoris (4) IDDM (insulin dependent diabetes mellitus) Status: Chronic Assessment & Plan: Sliding scale insulin and diabetic diet. (5) Hyponatremia Status: Acute Assessment & Plan: Improved but recurred slight low this am, continue to monitor. (6) Right clavicle fracture Status: Chronic Assessment & Plan: Contributing to her difficulty taking care of herself at home given on same side as hip injury. Qualifiers: (7) Falls Status: Chronic Assessment & Plan: Recurrent falls with serious injuries. PT. Qualifiers: Qualified Codes: W19.XXXS - Unspecified fall, sequela (8) CHF (congestive heart failure) Status: Chronic Assessment & Plan: No current evidence of exacerbation. Qualifiers: Qualified Codes: I50.32 - Chronic diastolic (congestive) heart failure (9) DVT prophylaxis Status: Acute Assessment & Plan: SCDs. GLORY YANG MD Mar 02, 2022 11:29
[2022-03-02 15:42] VITALS: BP 180/90
[2022-03-02] MEDS ORDERED: lisINopril 10 MG (PRINIVIL) TABLET PO NR (16:30)
[2022-03-02 19:41] VITALS: BP 108/66
[2022-03-02] MEDS: IBUPROFEN 600 MG (MOTRIN) TAB PO PRN (22:10)
[2022-03-03] VITALS (12 sets, daily range): BP systolic 97–140; BP diastolic 57–87
[2022-03-03] MEDS: ACETAMINOPHEN 500 MG TAB (TYLENOL) PO SCH ×4 (00:31→22:19)
[2022-03-03 06:08] LABS: HEMATOCRIT 38 % (35-52); HEMOGLOBIN 12.5 g/dL (11.5-16.0); MEAN CORPUSCULAR HEMOGLOBIN 31 pg (25-34); MEAN CORPUSCULAR HGB CONC 33 g/dL (32-36); MEAN CORPUSCULAR VOLUME 94 fL (80-99); MEAN PLATELET VOLUME 10.6 fL (9.0-12.2); PLATELET COUNT 317 10^3/uL (130-400)
[2022-03-03 06:14] LABS: POTASSIUM 4.4 MMOL/L (3.6-5.0)
[2022-03-03 06:15] LABS: CALCIUM 9.3 MG/DL (8.5-10.1)
[2022-03-03 06:20] LABS: CREATININE SERUM 0.83 MG/DL (0.60-1.30)
[2022-03-03] MEDS: LEVOTHYROXINE 75 MCG (LEVOTHROID) TABLET PO SCH (06:30)
[2022-03-03] MEDS: LEVOTHYROXINE 100 MCG (LEVOTHROID) TAB PO SCH (06:30)
--- NOTE | 2022-03-03 10:26 | Physical Therapy Progress Note ---
Therapy Progress Note Patient to have surgery on this date. PT to resume this p.m. or in a.m. ADRIEL MERCADO PT Mar 03, 2022 10:26
[2022-03-03] MEDS: NICOTINE PATCH REMOVAL TP SCH (10:32)
[2022-03-03] MEDS: NICOTINE 14 MG (NICODERM) PATCH TD SCH (10:33)
[2022-03-03] MEDS: GABAPENTIN 400 MG (NEURONTIN) CAP PO SCH ×3 (10:33→22:19)
[2022-03-03] MEDS: ASPIRIN E.C. 81 MG (ECOTRIN) TAB PO SCH (10:33)
[2022-03-03] MEDS: lisINopril 10 MG (PRINIVIL) TABLET PO SCH (10:33)
[2022-03-03] MEDS: PANTOPRAZOLE 40 MG (PROTONIX) TAB PO SCH ×2 (10:33→22:20)
[2022-03-03] MEDS ORDERED: fentaNYL INJ 100 MCG/2 ML AMP ONE (11:36)
[2022-03-03] MEDS ORDERED: BUPIVACAINE 0.5% 30 ML (SENSORCAINE) VIAL ONE (11:37)
[2022-03-03] MEDS ORDERED: MIDAZOLAM 2 MG/2 ML (VERSED) VIAL ONE ×2 (11:39→12:19)
[2022-03-03] MEDS ORDERED: PROPOFOL INJECTION 50 ML IV ONE (11:40)
--- NOTE | 2022-03-03 11:42 | Progress Note ---
Subjective Subjective/Events-last exam Pt just had her preop shower, states she is ready to go, just thirsty. Denies concerns. Objective Exam Last Set of Vital Signs Vital Signs Date Time Temp Pulse Resp B/P (MAP) Pulse Ox O2 Delivery O2 Flow Rate FiO2 03/03/22 07:52 36.5 80 18 117/69 (85) 99 Room Air Capillary Refill : I&O Intake and Output 03/03/22 00:00 Intake Total 1600 ml Balance 1600 ml Intake Oral 1600 ml # Voids 8 General: Alert, No Acute Distress Lungs: Clear to Auscultation, Normal Air Movement Heart: Regular Rate Psych/Mental Status: Mood NL Results/Procedures Lab Laboratory Tests 03/03/22 05:09: White Blood Count 10.0, Red Blood Count 4.03, Hemoglobin 12.5, Hematocrit 38, Mean Corpuscular Volume 94, Mean Corpuscular Hemoglobin 31, Mean Corpuscular Hemoglobin Concent 33, Red Cell Distribution Width 11.8, Platelet Count 317, Mean Platelet Volume 10.6, Sodium Level 135, Potassium Level 4.4, Chloride Level 101, Carbon Dioxide Level 27, Anion Gap 7, Blood Urea Nitrogen 20H, Creatinine 0.83, Estimat Glomerular Filtration Rate 81, BUN/Creatinine Ratio 24, Glucose Level 254H, Calcium Level 9.3 Microbiology 03/02/22 MRSA Screen - Final, Complete MRSA not isolated Radiology Hip/pelvis xray 02/28/22: IMPRESSION: 1. Stable cortical irregularity along the right femoral neck which remains concerning for nondisplaced fracture. Assessment/Plan Assessment/Plan (1) Closed impacted fracture of right hip Status: Acute Assessment & Plan: Not well delineated on xray and having difficulty managing at home, will obtain CT. IRF consult, PT/OT. Oxycodone prn pain. 03/02/22 CT confirmed fracture, Ortho consulted, plan for surgery tomorrow. 03/03/22 To OR today Qualifiers: (2) Hypertension Status: Chronic Assessment & Plan: Due to frequent falls and dizziness, blood pressure management has been allowing higher end BP, not on anti-hypertensive currently. Monitor. 03/03/22 Had markedly elevated BP yesterday afternoon, started lisinopril 10 mg with improvement noted. Qualifiers: Qualified Codes: I10 - Essential (primary) hypertension (3) CAD (coronary artery disease) Status: Chronic Assessment & Plan: Resume home medications. Qualifiers: Qualified Codes: I25.10 - Atherosclerotic heart disease of [place] coronary artery without angina pectoris (4) IDDM (insulin dependent diabetes mellitus) Status: Chronic Assessment & Plan: Sliding scale insulin and diabetic diet. (5) Hyponatremia Status: Resolved Assessment & Plan: Intermittent, mild, monitor. (6) Right clavicle fracture Status: Chronic Assessment & Plan: Contributing to her difficulty taking care of herself at home given on same side as hip injury. Qualifiers: (7) Falls Status: Chronic Assessment & Plan: Recurrent falls with serious injuries. PT. Qualifiers: Qualified Codes: W19.XXXS - Unspecified fall, sequela (8) CHF (congestive heart failure) Status: Chronic Assessment & Plan: No current evidence of exacerbation. Qualifiers: Qualified Codes: I50.32 - Chronic diastolic (congestive) heart failure (9) DVT prophylaxis Status: Acute Assessment & Plan: SCDs. GLORY YANG MD Mar 03, 2022 11:42
[2022-03-03] MEDS ORDERED: CLINDAMYCIN 600 MG/50 ML IVPB 50 ML IV NR (11:45)
[2022-03-03] MEDS: LACTATED RINGERS 1,000 ML IV PRN ×2 (11:48→12:55)
[2022-03-03] MEDS ORDERED: LACTATED RINGERS 1,000 ML IV PRN (12:00)
[2022-03-03] MEDS ORDERED: PHENYLEPHRINE 100 MCG/ML 10 ML (ANESTHESIA) SYR ONE (12:53)
--- NOTE | 2022-03-03 13:12 | Operative Report - Ortho ---
Operative Report Surgeon (s)/[employer] Specialist (s) Surgeon CATHY GUTIERREZ MD Capital Markets Specialist n/a Pre-Operative Diagnosis Right Femoral Neck Fracture Post-Operative Diagnosis same Operative Report Date of Procedure: Mar 03, 2022 Name of Procedure Performed: Closed Reduction and Percutaneous Pinning of Right Femoral Neck Fracture Description & Findings After obtaining informed consent and marking the patient in the preoperative holding area, IV antibiotics were administered. Patient was taken to the operating room and general anesthesia was induced. Right leg was placed in the traction spar. Left leg was placed in the well leg lara. Surgical timeout was taken. Reduction was confirmed using C-arm. The right lower extremity was prepped and draped in the usual sterile fashion. Initially a guidewire was placed in the calcar position and posteriorly in the femoral neck. C-arm was used to evaluate position of the wire. 2nd wire was placed more superiorly and more central in the femoral neck. A 3rd wire was placed between the first two wires but more anteriorly. Position of the wires were confirmed on C-arm. Measurements were taken. An 85 mm calcar screw was placed, first by power and then seated by hand, the more superior screw was placed and it measured 80 mm, the last screw measured 80 mm. Wires were removed. Final AP and lateral images were obtained using C-arm and transferred to PACS. Images demonstrated adequate reduction of the femoral neck fracture and appropriate position of the screws. Wound was lavaged with normal saline. Subcutaneous layer was closed with 2-0 vicryl and skin was closed with matt. Wound was dressed with xeroform, 4x4s, and tape. Patient tolerated the procedure well and was stable to the recovery room. Anesthesia Type Spinal Estimated Blood Loss minimal Specimen(s) collected/removed None CATHY GUTIERREZ MD Mar 03, 2022 13:12
[2022-03-03] MEDS ORDERED: ONDANSETRON 4 MG/2 ML (SDV) Z0FRAN IVP PRN (13:30)
[2022-03-03] MEDS ORDERED: HYDROmorphone 2 MG/ML VIAL (DILAUDID) IV ONE (13:30)
--- NOTE | 2022-03-03 13:47 | Occ Therapy Progress Note ---
Therapy Progress Note Pt scheduled to have surgery today. OT will complete Evaluation post op day 1; 03/04/22. Alexandra Su OT Mar 03, 2022 13:47
--- NOTE | 2022-03-03 16:47 | Diagnostic Imaging Report ---
INDICATION: Right hip pain. IMPRESSION: 45.3 seconds fluoroscopy and 2 intraoperative digital images were acquired during internal fixation of the right hip in surgery. Dictated by: Dictated on workstation # [id number]
[2022-03-03] MEDS: IBUPROFEN 600 MG (MOTRIN) TAB PO PRN (22:19)
[2022-03-04 04:00] VITALS: BP 95/62
[2022-03-04 05:59] LABS: HEMATOCRIT 36 % (35-52); HEMOGLOBIN 11.9 g/dL (11.5-16.0); MEAN CORPUSCULAR HEMOGLOBIN 32 pg (25-34); MEAN CORPUSCULAR HGB CONC 33 g/dL (32-36); MEAN CORPUSCULAR VOLUME 96 fL (80-99); MEAN PLATELET VOLUME 10.7 fL (9.0-12.2); PLATELET COUNT 278 10^3/uL (130-400); WHITE BLOOD COUNT 10.4 10^3/uL (4.3-11.0)
[2022-03-04 06:17] LABS: POTASSIUM 3.9 MMOL/L (3.6-5.0)
[2022-03-04 06:18] LABS: CALCIUM 8.9 MG/DL (8.5-10.1)
[2022-03-04 06:22] LABS: CREATININE SERUM 0.87 MG/DL (0.60-1.30)
[2022-03-04] MEDS: LEVOTHYROXINE 75 MCG (LEVOTHROID) TABLET PO SCH (07:15)
[2022-03-04] MEDS: ACETAMINOPHEN 500 MG TAB (TYLENOL) PO SCH (07:15)
[2022-03-04] MEDS: LEVOTHYROXINE 100 MCG (LEVOTHROID) TAB PO SCH (07:21)
[2022-03-04 07:44] VITALS: BP 199/102
[2022-03-04] MEDS: GABAPENTIN 400 MG (NEURONTIN) CAP PO SCH (08:57)
[2022-03-04] MEDS: PANTOPRAZOLE 40 MG (PROTONIX) TAB PO SCH (08:58)
[2022-03-04] MEDS: lisINopril 10 MG (PRINIVIL) TABLET PO SCH (08:58)
[2022-03-04] MEDS: ASPIRIN E.C. 81 MG (ECOTRIN) TAB PO SCH (08:58)
[2022-03-04 09:01] VITALS: BP 138/70
[2022-03-04] MEDS: NICOTINE 14 MG (NICODERM) PATCH TD SCH (09:01)
--- NOTE | 2022-03-04 09:41 | Progress Note - Ortho ---
Progress Note Subjective Date of Exam 03/04/22 Chief Complaint POD #1 CRPP of R FN Fx HPI/Events since last exam doing well, pain controlled, has been up Review of Systems - Allergies: Coded Allergies: Penicillins (Verified Allergy, Unknown, 12/15/15) Home Meds Active Scripts Aspirin (Aspirin EC) 81 Mg Tablet., 81 MG PO DAILY for 30 Days, TAB Prov:NAT SANDOVAL MD 02/26/22 Reported Medications Levothyroxine Sodium (Levothyroxine Sodium) 175 Mcg Tablet, 175 MCG PO DAILY, TAB LAST FILLED 09-09-2021 #90/ DAY SUPPLY 02/24/22 Atorvastatin Calcium (Atorvastatin Calcium) 40 Mg Tablet, 40 MG PO HS, TAB 12/21/21 Gabapentin (Gabapentin) 800 Mg Tablet, 800 MG PO TID, TAB 12/19/21 Insulin Degludec (Tresiba Flextouch U-100) 100 Unit/Ml (3 Ml) Insuln.pen, 35 UNIT SQ DAILY, EA 08/24/21 Omeprazole/Sodium Bicarbonate (Zegerid 40 mg Capsule) 40 Mg-1.1 Gram Capsule, 1 EACH PO BID, CAP 08/24/21 Discontinued Reported Medications Clopidogrel Bisulfate (Clopidogrel) 75 Mg Tablet, 75 MG PO DAILY, TAB 12/21/21 Carvedilol (Carvedilol) 12.5 Mg Tablet, 12.5 MG PO BID, TAB FILLED 10-12-2021 #180/90 DAY SUPPLY 02/24/22 Furosemide (Furosemide) 20 Mg Tablet, 20 MG PO DAILY, TAB LAST FILLED 10-13-2021 #30 DAY SUPPLY 08/24/21 Objective Exam R Hip: Incision c/d/i, +DF of ankle, no s/s of DVT Vital Signs Vital Signs Date Time Temp Pulse Resp B/P (MAP) Pulse Ox O2 Delivery O2 Flow Rate FiO2 03/04/22 09:01 138/70 (92) 03/04/22 07:44 36.6 90 18 199/102 (134) 99 Room Air 03/04/22 04:00 36.2 81 16 95/62 (73) 97 Room Air 03/03/22 21:27 Room Air 0.00 03/03/22 19:25 37.2 85 20 140/87 (104) 98 Room Air 03/03/22 15:48 36.8 91 20 99/71 (80) 97 Room Air 03/03/22 14:17 36.6 82 18 109/57 (74) 95 Room Air 03/03/22 13:55 Room Air 10.00 03/03/22 13:50 36.9 19 102/76 (85) 97 Room Air 03/03/22 13:40 14 111/79 (90) 99 OxyMask 10.00 03/03/22 13:35 OxyMask 10.00 03/03/22 13:30 19 104/73 (83) 100 OxyMask 10.00 03/03/22 13:20 18 97/80 (86) 100 OxyMask 10.00 03/03/22 13:15 36.6 16 102/72 (82) 97 OxyMask 10.00 03/03/22 13:15 OxyMask 10.00 03/03/22 11:46 36.6 80 18 119/70 (86) 97 Room Air I & O 03/04/22 06:59 Intake Total 2690 ml Output Total 1700 ml Balance 990 ml Lab Results Laboratory Tests 03/03/22 14:27: Glucometer 183H 03/04/22 05:10: White Blood Count 10.4, Red Blood Count 3.77L, Hemoglobin 11.9, Hematocrit 36, Mean Corpuscular Volume 96, Mean Corpuscular Hemoglobin 32, Mean Corpuscular Hemoglobin Concent 33, Red Cell Distribution Width 11.9, Platelet Count 278, Mean Platelet Volume 10.7, Sodium Level 134L, Potassium Level 3.9, Chloride Level 101, Carbon Dioxide Level 25, Anion Gap 8, Blood Urea Nitrogen 19H, Creatinine 0.87, Estimat Glomerular Filtration Rate 76, BUN/Creatinine Ratio 22, Glucose Level 287H, Calcium Level 8.9 Microbiology 03/02/22 MRSA Screen - Final, Complete MRSA not isolated Assessment and Plan Assessment Right Femoral Neck Fracture s/p CRPP Problem List Right Femoral Neck Fracture s/p CRPP Plan PT/OT DVT Prophylaxis Okay with discharge home from ortho standpoint Final Diagonsis Right Femoral Neck Fracture s/p CRPP Level of the visit: Level 3 (postop global) CATHY GUTIERREZ MD Mar 04, 2022 09:41
[2022-03-04] MEDS ORDERED: SENNA W/DOCUSATE (SENOKOT S) TABLET PO SCH (10:00)
[2022-03-04] MEDS ORDERED: NICOTINE 21 MG (NICODERM) PATCH TD SCH (10:00)
[2022-03-04] MEDS: NICOTINE PATCH REMOVAL TP SCH ×2 (10:06→11:15)
--- NOTE | 2022-03-04 10:11 | Physical Therapy Daily Note ---
PT Daily Note-Current Subjective Patient reports she is much better since surgery and wants to go home today. SW and physician notified. Pain Numeric Pain Scale: 3 Location: Right Location Body Site: Hip Pain Description: Acute Section J - Health Conditions 1. Rarely or not at all 2. Occasionally 3. Frequently 4. Almost constantly 8. Unable to answer Pain Effect on Sleep: 1 Pain Interference with Therapy: 1 Pain Interference w/Day-to-Day: 1 Mental Status Patient Orientation: Normal For Age Transfers SCALE: Activities may be completed with or without assistive devices. 5-Uwvdcjtzsc-dnkinhe completes the activity by him/herself with no assistance from a helper. 5-Set-up or Clean-up Assistance-helper sets up or cleans up; patient completes activity. [place] assists only prior to or following the activity. 4-Supervision or Touching Assistance-helper provides verbal cues and/or touching/steadying and/or contact guard assistance as patient completes activity. Assistance may be provided throughout the activity or intermittently. 3-Partial/Moderate Assistance-helper does LESS THAN HALF the effort. [place] lifts, holds or supports trunk or limbs, but provides less than half the effort. 2-Substantial/Maximal Assistance-helper does MORE THAN HALF the effort. [place] lifts or holds trunk or limbs and provides more than half the effort. 8-Mcjbzfhgc-diuowo does ALL the effort. Patient does none of the effort to complete the activity. Or, the assistance of 2 or more helpers is required for the patient to complete the activity. If activity was not attempted, code reason: 7-Patient Refused. 9-Not Applicable-not attempted and the patient did not perform the activity before the current illness, exacerbation or injury. 10-Not Attempted due to Environmental Limitations-(lack of equipment, weather restraints, etc.). 88-Not Attempted due to Medical Conditions or Safety Concerns. Roll Left & Right (QC): 6 Sit to Lying (QC): 6 Lying to Sitting/Side of Bed(Q: 6 Sit to Stand (QC): 6 Chair/Ufn-cu-Qkssw Xfer(QC): 6 Toilet Transfer (QC): 6 Weight Bearing Right Lower Extremity: Right Touch Toe Bearing Left Lower Extremity: Left Full Weight Bearing Gait Training Distance: 250' Walk 10 feet (QC): 6 Walk 50 ft with 2 Turns(QC): 6 Walk 150 ft (QC): 6 Gait Assistive Device: FWW patient is compliant with TTWB right LE and demonstrates reciprocal pattern with gait Assessment Patient much improved with all mobility and is safe to be up ad rhonda in room. PT will see patient x 1 more session to ensure safe mobility continues. PT Custodial Goals Can Solderer Goals PT Can Solderer Goals Time Frame: Mar 12, 2022 Roll Left & Right (QC): 6 Sit to Lying (QC): 6 Lying-Sitting on Side/Bed(QC): 6 Sit to Stand (QC): 6 Chair/Mob-wb-Vutfl Xfer(QC): 6 Toilet Transfer (QC): 6 Walk 10 feet (QC): 6 Walk 50ft with 2 Turns (QC): 6 Walk 150 ft (QC): 6 PT Plan Treatment/Plan Treatment Plan: Continue Plan of Care Treatment Plan: Bed Mobility, Education, Functional Activity Bab[place], Functional Strength, Gait, Safety, Therapeutic Exercise, Transfers Treatment Duration: Mar 12, 2022 Frequency: 11 times per week Estimated Hrs Per Day: .5 hour per day Patient and/or Family Agrees t: Yes Time/GCodes Time In: 900 Time Out: 916 Total Billed Treatment Time: 16 Total Billed Treatment 1 visit REEval 16 min ADRIEL MERCADO PT Mar 04, 2022 10:11
--- NOTE | 2022-03-04 11:33 | Occupational Therapy Eval ---
OT Evaluation-General/PLF Medical Diagnosis Admission Date Feb 28, 2022 at 20:22 Medical Diagnosis: closed impacted right hip fracture Onset Date: Feb 19, 2022 Therapy Diagnosis Therapy Diagnosis: n/a Height/Weight Height (Feet): 5 Height (Inches): 7.00 Weight (Pounds): 165 Weight (Ounces): 0.0 Precautions Precautions/Isolations: Standard Precautions Referral Physician: Jaime Referral Reason: Evaluation/Treatment Medical History Pertinent Medical History: Atrial Fib, DM, Fractures, HTN, Neuropathy, Renal Insufficiency, Smoking Current History s/p IM nail 03/03/22 Social History Home: Apartment Current Living Status: Alone Entry Into Home: Level Entry ADL-Prior Level of Function SCALE: Activities may be completed with or without assistive devices. 9-Uxirtgqeft-hanvshs completes the activity by him/herself with no assistance from a helper. 5-Set-up or Clean-up Assistance-helper sets up or cleans up; patient completes a ctivity. [place] assists only prior to or following the activity. 4-Supervision or Touching Assistance-helper provides verbal cues and/or touching/steadying and/or contact guard assistance as patient completes activity. Assistance may be provided throughout the activity or intermittently. 3-Partial/Moderate Assistance-helper does LESS THAN HALF the effort. [place] lifts, holds or supports trunk or limbs, but provides less than half the effort. 2-Substantial/Maximal Assistance-helper does MORE THAN HALF the effort. [place] lifts or holds trunk or limbs and provides more than half the effort. 7-Vhjskzuml-proqau does ALL the effort. Patient does none of the effort to complete the activity. Or, the assistance of 2 or more helpers is required for the patient to complete the activity. If activity was not attempted, code reason: 7-Patient Refused. 9-Not Applicable-not attempted and the patient did not perform the activity before the current illness, exacerbation or injury. 10-Not Attempted due to Environmental Limitations-(lack of equipment, weather restraints, etc.). 88-Not Attempted due to Medical Conditions or Safety Concerns. ADL PLOF Comments Pt reports IND with ADLs and functional mobility at PLOF using a walker. Self Care: Independent Functional Cognition: Independent OT Current Status Subjective Pt in bed, states she feels a lot better since surgery yesterday compared to before surgery. Pt feels like she is ready to go home and has no concerns with her ability to complete ADLS Mental Status/Objective Patient Orientation: Normal For Age Current Upper Extremity ROM WFL Upper Extremity Strength grossly 4+/5 ADL-Treatment Eating (QC): 6 On/Off Footwear (QC): 6 Toileting Hygiene (QC): 6 Other Treatments Pt in bed, reports she donned gripper socks this morning without difficulty, has been toileting independently, and is able to maintain TTWB during mobility. Pt has no concerns with her ability to complete ADLs upon discharging. With pt being able to complete footwear, she doesn't foresee issues with LE dressing, or showering. Pt declines further OT services at this time, as she feels back to PLOF. Post tx, pt in recliner, call light in reach and all needs met. Education OT Patient Education: Correct positioning, Modified ADL techniques, Progress toward Goal/Update tx plan, Purpose of tx/functional activities, Rehab process Teaching Recipient: Patient Teaching Methods: Discussion Response to Teaching: Verbalize Understanding OT Inseam Trimming Machine Operator Goals Intermediate Goals 1=Demonstrate adherence to instructed precautions during ADL tasks. 2=Patient will verbalize/demonstrate understanding of assistive devic es/modifications for ADL. 3=Patient will improve strength/tolerance for activity to enable patient to perform ADL's. OT Education/Plan Problem List/Assessment Assessment: No Skilled OT Needs ID'd No skilled OT services indicated at this time as pt is at her PLOF and independent with ADLs. Pt has no concerns with her ability to complete ADLS at discharge and declines further OT services. Discharge Recommendations Plan/Recommendations: Discharge/Goals Met Treatment Plan/Plan of Care Patient would benefit from OT for education, treatment and training to promote independence in ADL's, mobility, safety and/or upper extremity function for ADL's. Plan of Care: ADL Retraining, Functional Mobility Treatment Duration: Mar 04, 2022 Frequency: 1 time per week (eval only) Rehab Potential: Fair Time/GCodes Start Time: 11:22 Stop Time: 11:20 Total Time Billed (hr/min): 8 Billed Treatment Time 1, EVYUNIEL PENA OT Mar 04, 2022 11:33
[2022-03-04 11:35] VITALS: BP 155/75
[2022-03-04] MEDS ORDERED: IBUP-844 PO (12:24)
[2022-03-04] MEDS ORDERED: OXC5T PO (12:24)
[2022-03-04] MEDS ORDERED: ACET-93 PO (12:24)
[2022-03-04] MEDS ORDERED: SENN1TAB76 PO (12:24)
[2022-03-04] MEDS ORDERED: NICO1PAT34 TD (12:24)
--- NOTE | 2022-03-04 12:29 | D/C HH Face to Face Order ---
D/C Face to Face Orders Instructions for Patient Via [facility], Patient Instructions/FollowUp: Follow up with primary provider within a week of discharge. Follow up with Orthopedic Surgery as directed. Physician to follow Patient: [facility] Discharge Diet for Home: ADA Diet Patient Problems: Right femoral neck fracture Diabetes Hypothyroidism GERD Hypertension Patient Data-Allergies,Ht & Wt Patient Allergies: Coded Allergies: Penicillins (Verified Allergy, Unknown, 12/15/15) Height (Feet): 5 Height (Inches): 7.00 Weight (Pounds): 165 Weight (Ounces): 0.0 Home Health Need/Face to Face Date of Face to Face: Mar 04, 2022 Clinical Findings: Non or partial weight bearing I have seen Pt brlm-oh-qamz: Yes Discharged To: Home Diagnosis/Conditions: See patient problems Patient is Homebound due to: Non-weight bearing, Pain w/ambulation Homebound Status Due to the above stated illness, injury or surgical procedure (medical condition or diagnosis) and associated clinical findings, the patient is homebound because of his/her inability to leave home except with aid of a supportive device and/or person AND leaving the home requires a considerable and taxing effort or is medically contraindicated. Pt req the following assistanc: Walker Home Health Nursing Orders Home Health Services Order: Respiratory Equipment Assistant-Evaluate & Treat, Physical Therapy-Evaluate & Treat Home Health Infusion Therapy Line Start Date: Feb 28, 2022 Certify Stmt I certify that this patient is under my care and that I, a nurse practitioner or a physician; a digital sales assistant working with me, had a face to face encounter that -m eets the physician face to face encounter requirements with this patient as dated. GLORY YANG MD Mar 04, 2022 12:29
--- NOTE | 2022-03-04 14:49 | Discharge Summary ---
MARGARITA BENEDICT Hannah 03/04/22 1443: Discharge Summary Hospital Course Problems Reviewed?: Yes Problems/Diagnosis: (1) Closed impacted fracture of right hip Status: Acute Assessment & Plan: Not well delineated on xray and having difficulty managing at home, will obtain CT. IRF consult, PT/OT. Oxycodone prn pain. 03/02/22 CT confirmed fracture, Ortho consulted, plan for surgery tomorrow. 03/03/22 To OR today 03/04/22 Ambulating with walker and help from staff. PT notes pt is much improved on mobility and is safe to be up. Qualifiers: (2) Hypertension Status: Chronic Assessment & Plan: Due to frequent falls and dizziness, blood pressure management has been allowing higher end BP, not on anti-hypertensive currently. Monitor. 03/03/22 Had markedly elevated BP yesterday afternoon, started lisinopril 10 mg with improvement noted. Qualifiers: Qualified Codes: I10 - Essential (primary) hypertension (3) CAD (coronary artery disease) Status: Chronic Assessment & Plan: Resume home medications. Qualifiers: Qualified Codes: I25.10 - Atherosclerotic heart disease of [place] coronary artery without angina pectoris (4) IDDM (insulin dependent diabetes mellitus) Status: Chronic Assessment & Plan: Sliding scale insulin and diabetic diet. (5) Hyponatremia Status: Resolved Resolution Date/Time: 03/03/22 @ 11:42 Assessment & Plan: Intermittent, mild, monitor. (6) Right clavicle fracture Status: Chronic Assessment & Plan: Contributing to her difficulty taking care of herself at home given on same side as hip injury. Qualifiers: (7) Falls Status: Chronic Assessment & Plan: Recurrent falls with serious injuries. PT. Qualifiers: Qualified Codes: W19.XXXS - Unspecified fall, sequela (8) CHF (congestive heart failure) Status: Chronic Assessment & Plan: No current evidence of exacerbation. Qualifiers: Qualified Codes: I50.32 - Chronic diastolic (congestive) heart failure (9) DVT prophylaxis Status: Acute Assessment & Plan: SCDs. Hospital Course Date of Admission: Feb 28, 2022 at 20:22 Admission Diagnosis : Family Physician/Provider: No,Local Physician Date of Discharge: 03/04/22 Discharge Diagnosis: Closed impacted fracture of right hip Hospital Course: See Problem List Labs and Pending Lab Test: Laboratory Tests 03/04/22 05:10: White Blood Count 10.4, Red Blood Count 3.77L, Hemoglobin 11.9, Hematocrit 36, Mean Corpuscular Volume 96, Mean Corpuscular Hemoglobin 32, Mean Corpuscular Hemoglobin Concent 33, Red Cell Distribution Width 11.9, Platelet Count 278, Mean Platelet Volume 10.7, Sodium Level 134L, Potassium Level 3.9, Chloride Level 101, Carbon Dioxide Level 25, Anion Gap 8, Blood Urea Nitrogen 19H, Creatinine 0.87, Estimat Glomerular Filtration Rate 76, BUN/Creatinine Ratio 22, Glucose Level 287H, Calcium Level 8.9 Microbiology 03/02/22 MRSA Screen - Final, Complete MRSA not isolated Home Meds Active Stool Softener-Laxative Tablet (Sennosides/Docusate Sodium) 8.6 Mg-50 Mg Tablet 1 Ea PO BID PRN Acetaminophen 500 Mg Tablet 1,000 Mg PO Q8HR Ibu (Ibuprofen) 600 Mg Tablet 600 Mg PO Q6H PRN Oxyir Tablet (Oxycodone HCl) 5 Mg Tab 5 Mg PO Q4H PRN Nicoderm Cq (Nicotine) 21 Mg/24 Hour Patch.td24 21 Mg TD DAILY@0900 Aspirin EC (Aspirin) 81 Mg Tablet.dr 81 Mg PO DAILY 30 Days Reported Levothyroxine Sodium 175 Mcg Tablet 175 Mcg PO DAILY LAST FILLED 09-09-2021 #90/90 DAY SUPPLY Atorvastatin Calcium 40 Mg Tablet 40 Mg PO HS Gabapentin 800 Mg Tablet 800 Mg PO TID Tresiba Flextouch U-100 (Insulin Degludec) 100 Unit/Ml (3 Ml) Insuln.pen 35 Unit SQ DAILY Zegerid 40 mg Capsule (Omeprazole/Sodium Bicarbonate) 40 Mg-1.1 Gram Capsule 1 Each PO BID Assessment/Pt DC Instructions Follow up with PCP within one week of discharge Discharge Diet: ADA Diet Discharge Physical Examination Allergies: Coded Allergies: Penicillins (Verified Allergy, Unknown, 12/15/15) General Appearance: No Apparent Distress, WD/WN Respiratory: Lungs Clear, Normal Breath Sounds, No Respiratory Distress Cardiovascular: Regular Rate, Rhythm, No Edema, No Gallop, No JVD, No Murmur, Normal Peripheral Pulses (Radial and dorsalis pedis) Gastrointestinal: Normal Bowel Sounds, Non Tender, Soft Extremity: Normal Inspection, Normal Range of Motion, No Pedal Edema Skin: Normal Color, Warm/Dry Neurologic/Psychiatric: Alert, Oriented x3, Normal Mood/Affect Discharge Summary Date of Admission Feb 28, 2022 at 20:22 Date of Discharge Mar 04, 2022 at 13:25 Discharge Date: Mar 04, 2022 Supervisory-Addendum Brief Verification & Attestation Participated in pt care: history, MDM, physical Personally performed: exam, history, MDM, supervision of care Care discussed with: Medical Student Procedures: supervised GLORY YANG MD 03/04/22 1500: Discharge Summary Discharge Physical Examination Allergies: Coded Allergies: Penicillins (Verified Allergy, Unknown, 12/15/15) Supervisory-Addendum Brief Verification & Attestation I personally saw and examined patient and did my own history which confirmed that documented by the medical student. She was discharged with home health and walker. MARGARITA BENEDICT Mar 04, 2022 14:43 GLORY YANG MD Mar 04, 2022 15:00
== END 2022-03-04 13:25 | disposition home health service (06) | DRG 481 ==
LOC: EDUNIT# 18:20 → ER 18:21 → 4TH 20:22
PROVIDERS: ADMIT Family Medicine; ATTEND Family Medicine
PROC: 0QS604Z Reposition Right Upper Femur with Internal Fixation Device, Open Approach (ICD-10-PCS; principal; 2022-03-03 12:42)
DX: S72.011A Unspecified intracapsular fracture of right femur, initial encounter for closed fracture (principal); E87.1 Hypo-osmolality and hyponatremia; I50.32 Chronic diastolic (congestive) heart failure; I13.0 Hypertensive heart and chronic kidney disease with heart failure and stage 1 through stage 4 chronic kidney disease, or unspecified chronic kidney disease; W18.30XA Fall on same level, unspecified, initial encounter; I25.10 Atherosclerotic heart disease of native coronary artery without angina pectoris; S42.001A Fracture of unspecified part of right clavicle, initial encounter for closed fracture; E03.9 Hypothyroidism, unspecified; K21.9 Gastro-esophageal reflux disease without esophagitis; F17.210 Nicotine dependence, cigarettes, uncomplicated; F12.90 Cannabis use, unspecified, uncomplicated; E11.22 Type 2 diabetes mellitus with diabetic chronic kidney disease; E78.5 Hyperlipidemia, unspecified; N18.9 Chronic kidney disease, unspecified; M34.9 Systemic sclerosis, unspecified; I73.00 Raynaud's syndrome without gangrene; M79.7 Fibromyalgia; Z95.5 Presence of coronary angioplasty implant and graft; Z79.82 Long term (current) use of aspirin; Z79.4 Long term (current) use of insulin; Z79.899 Other long term (current) drug therapy
CPT/HCPCS: 36415; 71045; 73030; 73700; 76000; 80048; 80053; 80306; 80320; 81000; 82947; 83735; 84484; 85025; 85027; 85610; 85730; 87081; 93005; 93041

== ENCOUNTER → 2022-03-17 | Outpatient (CLI) | payer MEDICARE ==
[~2022-03-17] MED LIST changes: +ACET-93 PO; +IBUP-844 PO; +SENN1TAB76 PO
== END ==
LOC: ORTHO 11:59
PROVIDERS: ATTEND Orthopaedic Surgery
DX: Z47.89 Encounter for other orthopedic aftercare (principal)

== ENCOUNTER → 2022-04-20 | Outpatient (CLI) | payer MEDICARE ==
--- NOTE | 2022-04-19 16:24 | Diagnostic Imaging Report ---
INDICATION: POST OPERATIVE FOLLOW-UP TECHNIQUE: 2 views of the right hip. CORRELATION STUDY: None FINDINGS: 3 cannulated screws transfix the proximal right femur across the femoral neck. This appears to transfix a slightly impacted subcapital femoral neck fracture. Alignment is otherwise anatomic. Femoral head acetabular relationship maintained. Right hemipelvis unremarkable. Mild stool within the colon. IMPRESSION: 1. Postoperative changes with internal fixation of the proximal right hip. Dictated by: Dictated on workstation # [id number]
== END ==
LOC: ORTHO 04-19 12:42
PROVIDERS: ATTEND Orthopaedic Surgery
DX: Z47.89 Encounter for other orthopedic aftercare (principal); Z98.1 Arthrodesis status
CPT/HCPCS: 73502

== ENCOUNTER → 2022-05-26 | Outpatient (CLI) | payer MEDICARE ==
--- NOTE | 2022-05-26 18:20 | Diagnostic Imaging Report ---
HISTORY: Follow-up right hip fixation. TECHNIQUE: Two views of the right hip. COMPARISON: 04/19/2022. FINDINGS: There is internal fixation of the right femoral neck with three cannulated partially threaded screws. Alignment is stable. Right hip joint space is preserved. There is no loosening seen. There are mild degenerative changes in the right hip joint. No radiographic findings of osteonecrosis are seen. IMPRESSION: 1. Internal fixation of the proximal right femur with no hardware complication seen. Dictated by: Dictated on workstation # [id number]
== END ==
LOC: ORTHO 13:36
PROVIDERS: ATTEND Orthopaedic Surgery
DX: Z47.89 Encounter for other orthopedic aftercare (principal); Z98.890 Other specified postprocedural states
CPT/HCPCS: 73502

== ENCOUNTER → 2022-06-28 | Outpatient (CLI) | payer MEDICARE ==
[~2022-06-28] MED LIST changes: -POTA10CA43 PO; +POTA10CA44 PO
--- NOTE | 2022-06-28 16:45 | Diagnostic Imaging Report ---
EXAMINATION: Right hip radiographs, 2 views. COMPARISON: May 26, 2022. HISTORY: 62-year-old female, right hip pain. FINDINGS: There are fixation screws traversing the right intertrochanteric femur and femoral neck. The fixation screws are intact. There is a deformity at the level of the femoral neck likely relating to prior fracture. This is unchanged. The right hip is not dislocated. There is no joint space loss of the right hip, osteophyte formation, or subchondral cystic change. IMPRESSION: 1. Intact fixation screws in the right proximal femur with redemonstrated deformity of the right femoral neck likely reflecting the sequela of prior fracture. 2. Unremarkable evaluation of the right hip joint. Dictated by: Dictated on workstation # [id number]
== END ==
LOC: ORTHO 13:58
PROVIDERS: ATTEND Orthopaedic Surgery
DX: Z47.89 Encounter for other orthopedic aftercare (principal)
CPT/HCPCS: 73502; G0463; 99213

== ENCOUNTER → 2022-07-19 | Outpatient (CLI) | payer MEDICARE ==
[~2022-07-19] VITALS: Ht 172 cm; Wt 60.0 kg
[~2022-07-19] MED LIST changes: +CATHETER FLUSH 10 ML SYR IVP PRN; +REGADENOSON 0.4 MG/5 ML SYR (LEXISCAN) IV ONE
[2022-07-19 13:12] VITALS: BP 192/112
--- NOTE | 2022-07-19 17:52 | STRESS TEST ---
DATE OF SERVICE: 07/19/2022 RESTING AND POST REGADENOSON TECHNETIUM-99M TETROFOSMIN SPECT CT IMAGING ORDERING PHYSICIAN: Ivania Castro APRN CLINICAL DIAGNOSIS: Coronary artery disease. FINDINGS: Baseline images were carried out after injection of 10.75 mCi of technetium-99m tetrofosmin. This was followed by 0.4 mg regadenoson and 30.2 mCi of technetium-99m tetrofosmin for stress imaging. The electrocardiogram showed sinus rhythm at baseline. It did not change significantly with the regadenoson infusion. The patient tolerated the procedure well. Isolated premature ventricular contractions were seen during the study. The patient noted some shortness of breath following regadenoson infusion, which resolved in a few minutes. Review of images at rest and following stress indicate a relatively small basal inferolateral perfusion defect, which appears predominantly fixed. Gated images showed localized inferolateral hypokinesis. Left ventricular ejection fraction is calculated to be 51%. CONCLUSIONS: 1. This study is suggestive of basal inferolateral myocardial infarction with a small amount of krissy-infarct ischemia. 2. Localized, basal inferolateral hypokinesis. 3. Well preserved global left ventricular systolic function, left ventricular systolic function with an ejection fraction of 51%. Job ID: [id number] DocumentID: [id number] Dictated Date: 07/19/2022 17:18:57 Component Inspector Date: 07/19/2022 17:50:00 Dictated By: SHARRON NAIK MD; LILIANA; FACP; FACC;
== END ==
LOC: CARD 11:28
PROVIDERS: ATTEND Nurse Practitioner Family
DX: I25.10 Atherosclerotic heart disease of native coronary artery without angina pectoris (principal)
CPT/HCPCS: 78452; 93017; A9502

== ENCOUNTER 2022-08-03 18:19 | Inpatient (IN) | payer MEDICARE ==
[~2022-08-03] VITALS: Ht 170.2 cm; Wt 60.9 kg
[~2022-08-03 18:19] MED LIST changes: -CATHETER FLUSH 10 ML SYR IVP PRN; +LIDO15SO6 MM; -LIDO20SO23 MM; -REGADENOSON 0.4 MG/5 ML SYR (LEXISCAN) IV ONE
--- NOTE | 2022-08-03 18:34 | ED General ---
General Chief Complaint: Cardiac/General Problems Stated Complaint: N/V/BEACH Nursing Triage Note: Patient to ER via EMS w c/o high blood pressure, N/V/D, dizzy and headache for the last 4 days. Vomitted 10 times today. Patient states she's having abdominal pain. Patient states she is taking her blood pressure medication, but can't hold anything down. hx diabetes and CHF. Source of Information: Patient, EMS, Old Records History of Present Illness Date Seen by Provider: Aug 03, 2022 Time Seen by Provider: 18:20 Initial Comments PT ARRIVES VIA EMS FROM HOME PT WITH MULTIPLE COMPLAINTS PT STATES SINCE Monday07/31/22, SHE HAS HAD: -SEVERE GLOBAL HEADACHE -NAUSEA/VOMITING/DIARRHEA--HAS VOMITED X 10 TODAY, DIARRHEA X 1 TODAY. NO HEMATEMESIS OR COFFEE GROUND EMESIS. NO BLACK/BLOODY/TARRY STOOLS -SEVERE GENERALIZED ABDOMINAL PAIN -DIZZINESS -SLIGHTLY BLURRY VISION AT TIMES -DECREASED URINE OUTPUT--VOIDED A SMALL AMOUNT JUST PRIOR TO ARRIVAL -CHEST PRESSURE TODAY--DOES NOT VOLUNTEER THIS COMPLAINT, ONLY ADMITS TO CHEST PRESSURE ON DIRECT QUESTIONING DURING HISTORY AND REVIEW OF SYSTEMS. -STATES SHE HAS BEEN HAVING ALOT OF "PVC'S" -THIRST NO FEVER / SWEATS / CHILLS NO SHORTNESS OF BREATH NO PARESTHESIAS OR MOTOR DEFICITS NO CONFUSION NO COUGH OR URI SYMPTOMS PT STATES SHE HAS NOT EATEN MUCH IN THE LAST 4 DAYS, AND NO FOOD AT ALL SINCE YESTERDAY AFTERNOON SHE HAS HAD MINIMAL FLUID INTAKE--ONLY HAD 1 SMALL GLASS OF WATER TODAY HAS HISTORY OF HTN, IDDM, CAD WITH STENTS 08/2021, CHF, INTERMITTENT ATRIAL FIBRILLATION, CHRONIC BACK PAIN, HYPOTHYROIDISM, DEPRESSION/ANXIETY, GERD. PT STATES SHE HAS NOT BEEN ABLE TO KEEP ANY OF HER MEDICATIONS DOWN SHE DID CHECK HER BLOOD SUGAR YESTERDAY AND IT WAS 248--SHE DOES NOT ROUTINELY CHECK HER BLOOD SUGAR, AND HAS RAN OUT OF TEST STRIPS. SHE IS ON PLAVIX FOR CAD AND INTERMITTENT ATRIAL FIBRILLATION. SHE HAD A ROUTINE STRESS TEST BY DR. NAIK 07/19/22 IN ADDITION TO CARDIAC STENTS, SHE HAS HAD PRIOR APPY, BARRINGTON, HYST/BSO, WELL ORTHOPEDIC SURGERIES SHE SMOKED 1 PPD-"QUIT" 4 MONTHS AGO, SHE QUIT ALCOHOL 30 YEARS AGO, SHE DENIES DRUG USE (HOWEVER, PER OLD RECORDS, PT USES MARIJUANA ON REGULAR/DAILY BASIS) SHE STATES THIS HAPPENS A COUPLE OF TIMES A WEEK FOR THE LAST 10 MONTHS SHE HAS LOST UNKNOWN AMOUNT OF WEIGHT RECENTLY SHE HAS NOT SOUGHT CARE UNTIL TODAY FOR THIS PROBLEM EMS GAVE ZOFRAN 4 MG PRIOR TO ARRIVAL PT VERY HYPERTENSIVE FOR EMS--220'S/120'S. SHE HAD ROUTINE VISIT WITH S[facility]OUNTER AT [facility] A COUPLE OF WEEKS AGO, NO MEDICATION CHANGES. DID NOT DISCUSS THESE ISSUES WITH HER PCP: [facility] Allergies and Home Medications Allergies Coded Allergies: Penicillins (Verified Allergy, Unknown, 12/15/15) Patient Home Medication List Home Medication List Reviewed: Yes Acetaminophen (Acetaminophen) 500 Mg Tablet, 1,000 MG PO Q8HR Prescribed by: GLORY YANG on 03/04/22 1224 Aspirin (Aspirin EC) 81 Mg Tablet.dr, 81 MG PO DAILY Prescribed by: NAT SANDOVAL on 02/26/22 1156 Atorvastatin Calcium (Atorvastatin Calcium) 40 Mg Tablet, 40 MG PO HS, (Reported) Entered as Reported by: JENNIFER BOOTHE on 12/21/21 0915 Gabapentin (Gabapentin) 800 Mg Tablet, 800 MG PO TID, (Reported) Entered as Reported by: PATRICIA RODAS on 12/19/21 1622 Ibuprofen (Ibu) 600 Mg Tablet, 600 MG PO Q6H PRN for pain Prescribed by: GLORY YANG on 03/04/22 1224 Insulin Degludec (Tresiba Flextouch U-100) 100 Unit/Ml (3 Ml) Insuln.pen, 35 UNIT SQ DAILY, (Reported) Entered as Reported by: PRADEEP VICTOR on 08/24/21 0942 Levothyroxine Sodium (Levothyroxine Sodium) 175 Mcg Tablet, 175 MCG PO DAILY, (Reported) Entered as Reported by: JENNIFER BOOTHE on 02/24/22 1531 Nicotine (Nicoderm Cq) 21 Mg/24 Hour Patch.td24, 21 MG TD DAILY@0900 Prescribed by: GLORY YANG on 03/04/22 1224 Omeprazole/Sodium Bicarbonate (Zegerid 40 mg Capsule) 40 Mg-1.1 Gram Capsule, 1 EACH PO BID, (Reported) Entered as Reported by: PRADEEP VICTOR on 08/24/21 0942 Oxycodone Hcl (Oxyir Tablet) 5 Mg Tab, 5 MG PO Q4H PRN for PAIN-SEE DOSE INSTRUCTIONS Prescribed by: GLORY YANG on 03/04/22 1224 Sennosides/Docusate Sodium (Stool Softener-Laxative Tablet) 8.6 Mg-50 Mg Tablet, 1 EA PO BID PRN for CONSTIPATION-1ST LINE Prescribed by: GLORY YANG on 03/04/22 1224 Review of Systems Review of Systems Constitutional: see HPI, dizziness, malaise, weakness EENTM: see HPI, other (DRY MOUTH, THIRST) Respiratory: no symptoms reported; No cough, No short of breath Cardiovascular: see HPI, chest pain; No edema; palpitations; No syncope, No vascular heart diseas Gastrointestinal: see HPI, abdominal pain, diarrhea, loss of appetite, nausea, vomiting Genitourinary: see HPI, decreased output; No dysuria Musculoskeletal: no symptoms reported; No back pain Skin: no symptoms reported Psychiatric/Neurological: See HPI, Headache; Denies Numbness, Denies Paresthesia, Denies Tingling, Denies Tremors Hematologic/Lymphatic: No Symptoms Reported Immunological/Allergic: no symptoms reported Past Hgjvtox-Txvqed-Qlajwc Hx Patient Social History Tobacco Use?: Yes Tobacco type used: Cigarettes Smoking Status: Current Everyday Smoker Substance use?: Yes Substance type: Marijuana Alcohol Use?: Yes Immunizations Up To Date Tetanus Booster (TDap): Unknown PED Vaccines UTD: Yes Seasonal Allergies Seasonal Allergies: No Past Medical History Surgery/Hospitalization HX: c-sect x2, back, cholecystectomy, hysterectomy, benjamin, iddm, anxiety, depression, neuropathy, AFIB, HYPOTHYROID Surgeries: Yes ( X 2; BACK SURGERY 08/24/20 DUE TO TRAUMA) Abdominal, Appendectomy, Section, Coronary Stent, Gallbladder, Hysterectomy, Orthopedic, Tonsillectomy Respiratory: Yes (SLEEP APNEA--STATES SHE DOES NOT HAVE CPAP, PER PT 12/19/21) Sleep Apnea Currently Using CPAP: No Cardiac: Yes (A-FIB; CHF; STENTS X 2) Atrial Fibrillation, Coronary Artery Disease, High Cholesterol, Hypertension, Irregular Heartbeat, Valvular Heart Disease Neurological: Yes (PERIPHERAL NEUROPATHY DUE TO DIABETES) Neuropathy Reproductive Disorders: Yes Female Reproductive Disorders: 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, 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 Genitourinary: Yes (HAD ACUTE RENAL FAILURE/INSUFFICIENCY WHEN SHE FELL 08/20/20-NO DIALYSIS) Renal Failure Gastrointestinal: Yes (S/P APPY AND BARRINGTON) Musculoskeletal: Yes (FALL 08/20/20-T12 BURST FX & RIGHT WRIST FX;CLAVICLE FX;R HIP FX/ORIF;FALLS) Arthritis, Back Injury, Chronic Back Pain, Fractures Endocrine: Yes (TYPE 2 ) Diabetes, Insulin dep, Hypothyroidsim HEENT: No Cancer: No Psychosocial: Yes Anxiety, Bipolar, Depression Integumentary: No Blood Disorders: No Family Medical History Cancer, Diabetes, Psychiatric Problems SOCIAL HISTORY: -SMOKES 1 PPD -ETOH--HISTORY OF ABUSE, CLAIMS NO ALCOHOL X 30 YEARS -DRUGS--DAILY/REGULAR THC USE PAST SURGICAL HISTORY: -APPENDECTOMY -CHOLECYSTECTOMY - X 2 -HYSTERECTOMY / BILATERAL SALPINGO-OOPHORECTOMY -BACK SURGERY WITH RODS 08/24/2020 DUE TO TRAUMA / FALL -RIGHT FEMUR FX/ORIF 03/03/[address] GUTIERREZ PT FELL ON 08/20/20, HAD T12 BURST FRACTURE AND RIGHT WRIST FRACTURE AND WAS TRANSFERRED TO [facility] ON 08/24/20, PT HAD T12-L1 LAMINECTOMY AND BILATERAL DECOMPRESSION, AND T10-T11, T11-T12, T12-L1, L1-L2 POSTERIOR LATERAL FUSION USING [employer] PEDICLE SCREWS AND LOCAL BONE GRAFT BY DR. STEINER. PT WITH MULTIPLE FALLS AND HAS HAD MULTIPLE FRACTURES IN THE LAST 2 YEARS, INCLUDING SPINE FRACTURES AND RIGHT HIP FRACTURE REQUIRING SURGERY. ADDITIONALLY SHE HAS HAD FRACTURES OF HER RIGHT CLAVICLE AND RIGHT WRIST FRACTURE WHICH DID NOT REQUIRE SURGERY. CARDIAC CATH 08/24/[address] NAIK: CONCLUSIONS: 1. Coronary artery disease primarily consisting of distal occlusion of a codominant left circumflex and a long, up to 99% stenosis in the first obtuse marginal that was successfully stented with overlapping Skypoint 3.0 x 32 mm and Skypoint 3.0 x 12 mm stents with reduction of restenosis to 0% residual and improvement of flow from ZAHIRA 2 to ZAHIRA 3. The first diagonal branch, left anterior descending artery is of a small caliber and has 60% proximal stenosis. The rest of the vessels have diffuse mild to moderate plaque. 2. Well preserved global left ventricular systolic function. 3. Localized posterobasal akinesis. 4. Left ventricular end-diastolic pressure 12 mmHg. STRESS TEST 07/19/[address] NAIK: -FINDINGS: Baseline images were carried out after injection of 10.75 mCi of technetium-99m tetrofosmin. This was followed by 0.4 mg regadenoson and 30.2 mCi of technetium-99m tetrofosmin for stress imaging. The electrocardiogram showed sinus rhythm at baseline. It did not change significantly with the regadenoson infusion. The patient tolerated the procedure well. Isolated premature ventricular contractions were seen during the study. The patient noted some shortness of breath following regadenoson infusion, which resolved in a few minutes. Review of images at rest and following stress indicate a relatively small basal inferolateral perfusion defect, which appears predominantly fixed. Gated images showed localized inferolateral hypokinesis. Left ventricular ejection fraction is calculated to be 51%. CONCLUSIONS: 1. This study is suggestive of basal inferolateral myocardial infarction with a small amount of krissy-infarct ischemia. 2. Localized, basal inferolateral hypokinesis. 3. Well preserved global left ventricular systolic function, left ventricular systolic function with an ejection fraction of 51%. Physical Exam Vital Signs Vital Signs - First Documented 08/03/22 08/03/22 18:23 19:58 Temp 36.7 Pulse 101 Resp 16 B/P (MAP) 176/114 (134) Pulse Ox 97 O2 Delivery Room Air Capillary Refill : Less Than 3 Seconds Height, Weight, BMI Height: 5'7.00" Weight: 165lbs. 0.0oz. [id number]; 19.00 BMI Method:Stated General Appearance: Chronically ill, Cachetic, Other (PT IS VERY LETHARGIC WITH SOME SLOW MENTATION, CHRONICALLY ILL APPEARING, UNKEMPT; ) HEENT: PERRL/EOMI, Other (ORAL MUCOSA VERY DRY) Neck: Normal Inspection Respiratory: Normal Breath Sounds, No Accessory Muscle Use, No Respiratory Distress Cardiovascular: Regular Rate, Rhythm (WITH FREQUENT ECTOPY--PAC'S AND PVC'S ON MONITOR), No Edema, No JVD, No Murmur, Normal Peripheral Pulses Gastrointestinal: Soft, Abnormal Bowel Sounds (DECREASED); No Distended, No Guarding, No Mass; Tenderness (DIFFUSE TENDERNESS) Back: No CVA Tenderness Extremity: No Pedal Edema, Slow Capillary Refill Neurologic/Psychiatric: No Motor/Sensory Deficits (GROSS MOTOR/SENSORY IS INTACT WITH HX OF PERIPHERAL NEUROPATHY), 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 ) Focused Exam Sepsis Stage: Sepsis Possible Source: Unknown Lactate Level 08/03/22 19:40: Lactic Acid Level 1.86 Time of Focused Exam: 20:20 Respiratory: Normal Breath Sounds, No Accessory Muscle Use, No Respiratory Distress Cardiovascular: Regular Rate, Rhythm, No JVD, No Murmur Capillary Refill: Less Than 3 Seconds Skin: normal color, warm/dry Lactic Acid Level Laboratory Tests Test 08/03/22 19:40 Lactic Acid Level 1.86 MMOL/L (0.50-2.00) Within 3hrs of presentation: Admin fluids, Admin ABX, Blood cultures prior to ABX's, Focus exam, Lactate level Progress/Results/Core Measures Suspected Sepsis SIRS Temperature: Pulse: 101 Respiratory Rate: 16 Laboratory Tests 08/03/22 18:21: White Blood Count 15.4H Blood Pressure 176 /114 Mean: 134 08/03/22 19:40: Lactic Acid Level 1.86 Laboratory Tests 08/03/22 18:21: Creatinine 1.01, INR Comment 0.9, Platelet Count 408H, Total Bilirubin 1.6H Results/Orders Lab Results Laboratory Tests Test 08/03/22 18:21 08/03/22 18:42 08/03/22 18:53 08/03/22 19:40 Range/Units White Blood Count 15.4 H 4.3-11.0 10^3/uL Red Blood Count 5.11 3.80-5.11 10^6/uL Hemoglobin 16.2 H 11.5-16.0 g/dL Hematocrit 46 35-52 % Mean Corpuscular Volume 89 80-99 fL Mean Corpuscular Hemoglobin 32 25-34 pg Mean Corpuscular Hemoglobin Concent 35 32-36 g/dL Red Cell Distribution Width 11.6 10.0-14.5 % Platelet Count 408 H 130-400 10^3/uL Mean Platelet Volume 10.7 9.0-12.2 fL Immature Granulocyte % (Auto) 0 % Neutrophils (%) (Auto) 88 H 42-75 % Lymphocytes (%) (Auto) 8 L 12-44 % Monocytes (%) (Auto) 4 0-12 % Eosinophils (%) (Auto) 0 0-10 % Basophils (%) (Auto) 0 0-10 % Neutrophils # (Auto) 13.5 H 1.8-7.8 10^3/uL Lymphocytes # (Auto) 1.2 1.0-4.0 10^3/uL Monocytes # (Auto) 0.5 0.0-1.0 10^3/uL Eosinophils # (Auto) 0.0 0.0-0.3 10^3/uL Basophils # (Auto) 0.1 0.0-0.1 10^3/uL Immature Granulocyte # (Auto) 0.1 0.0-0.1 10^3/uL Neutrophils % (Manual) 89 % Lymphocytes % (Manual) 10 % Monocytes % (Manual) 1 % Blood Morphology Comment NORMAL Erythrocyte Sedimentation Rate 7 0-30 MM/HR Prothrombin Time 12.9 12.2-14.7 SEC INR Comment 0.9 0.8-1.4 Activated Partial Thromboplast Time 25 24-35 SEC Sodium Level 136 135-145 MMOL/L Potassium Level 3.6 3.6-5.0 MMOL/L Chloride Level 96 L 98-107 MMOL/L Carbon Dioxide Level 22 21-32 MMOL/L Anion Gap 18 H 5-14 MMOL/L Blood Urea Nitrogen 46 H 7-18 MG/DL Creatinine 1.01 0.60-1.30 MG/DL Estimat Glomerular Filtration Rate 64 BUN/Creatinine Ratio 46 Glucose Level 341 H 70-105 MG/DL Calcium Level 10.9 H 8.5-10.1 MG/DL Corrected Calcium 8.5-10.1 MG/DL Magnesium Level 2.1 1.6-2.4 MG/DL Total Bilirubin 1.6 H 0.1-1.0 MG/DL Aspartate Amino Transf (AST/SGOT) 14 5-34 U/L Alanine Aminotransferase (ALT/SGPT) 20 0-55 U/L Alkaline Phosphatase 100 40-136 U/L Total Creatine Kinase 25 L 29-168 U/L Creatine Kinase MB 1.4 <6.6 NG/ML Myoglobin 19.6 10.0-92.0 NG/ML Troponin I 0.117 H <0.028 NG/ML C-Reactive Protein High Sensitivity 0.23 0.00-0.50 MG/DL B-Type Natriuretic Peptide 66.9 <100.0 PG/ML Total Protein 8.7 H 6.4-8.2 GM/DL Albumin 5.0 H 3.2-4.5 GM/DL Amylase Level 37 25-125 U/L Lipase 25 8-78 U/L Beta-Hydroxybutyrate (Chem panel) 1.81 H 0.00-0.27 MMOL/L Free Thyroxine 1.85 H 0.70-1.48 NG/DL TSH [place] Testing 0.30 L 0.35-4.94 UIU/ML Acetaminophen Level < 10 L 10-30 UG/ML Serum Alcohol < 10 <10 MG/DL Influenza Type A (RT-PCR) Not Detected Not Detecte Influenza Type B (RT-PCR) Not Detected Not Detecte SARS-CoV-2 RNA (RT-PCR) Not Detected Not Detecte Urine Color YELLOW Urine Clarity CLEAR Urine pH 6.0 5-9 Urine Specific [place] 1.025 H 1.016-1.022 Urine Protein 2+ H NEGATIVE Urine Glucose (UA) 3+ H NEGATIVE Urine Ketones 1+ H NEGATIVE Urine Nitrite NEGATIVE NEGATIVE Urine Bilirubin NEGATIVE NEGATIVE Urine Urobilinogen 0.2 < = 1.0 MG/DL Urine Leukocyte Esterase NEGATIVE NEGATIVE Urine RBC (Auto) 1+ H NEGATIVE Urine RBC 2-5 H /HPF Urine WBC NONE /HPF Urine Squamous Epithelial Cells 0-2 /HPF Urine Crystals NONE /LPF Urine Bacteria NEGATIVE /HPF Urine Casts NONE /LPF Urine Mucus NEGATIVE /LPF Urine Culture Indicated NO Urine Opiates Screen NEGATIVE NEGATIVE Urine Oxycodone Screen NEGATIVE NEGATIVE Urine Methadone Screen NEGATIVE NEGATIVE Urine Propoxyphene Screen NEGATIVE NEGATIVE Urine Barbiturates Screen NEGATIVE NEGATIVE Ur Tricyclic Antidepressants Screen NEGATIVE NEGATIVE Urine Phencyclidine Screen NEGATIVE NEGATIVE Urine Amphetamines Screen NEGATIVE NEGATIVE Urine Methamphetamines Screen NEGATIVE NEGATIVE Urine Benzodiazepines Screen NEGATIVE NEGATIVE Urine Cocaine Screen NEGATIVE NEGATIVE Urine Cannabinoids Screen POSITIVE H NEGATIVE Lactic Acid Level 1.86 0.50-2.00 MMOL/L Test 08/03/22 19:55 08/03/22 21:12 Range/Units Blood Gas Puncture Site RRAD Blood Gas Patient Temperature 36.7 Arterial Blood pH 7.38 7.37-7.43 Arterial Blood Partial Pressure CO2 45 35-45 MMHG Arterial Blood Partial Pressure O2 72 L 79-93 MMHG Arterial Blood HCO3 26 23-27 MMOL/L Arterial Blood Total CO2 27.6 21.0-31.0 MMOL/L Arterial Blood Oxygen Saturation 96 94-100 % Arterial Blood Base Excess 1.5 -2.5-2.5 MMOL/L Tuan Test YES-POS Blood Gas Ventilator Setting NO Blood Gas Inspired Oxygen RA Glucometer 257 H 70-110 MG/DL Troponin I < 0.028 <0.028 NG/ML My Orders Orders - ELVIN JEAN BAPTISTE DO Ed Iv/Invasive Line Start (08/03/22 18:20) Ekg Tracing (08/03/22 18:20) Monitor-Rhythm Ecg Trace Only (08/03/22 18:20) Ct Head Wo-R/O Stroke (08/03/22 18:20) Acetaminophen (08/03/22 18:20) Alcohol (08/03/22 18:20) Bnp Abhijeet (08/03/22 18:20) Cbc With Automated Diff (08/03/22 18:20) Comprehensive Metabolic Panel (08/03/22 18:20) Creatine Kinase (08/03/22 18:20) Creatine Kinase Mb (08/03/22 18:20) Hs C Reactive Protein (08/03/22 18:20) Drug Screen Stat (Urine) (08/03/22 18:20) Lipase (08/03/22 18:20) Magnesium (08/03/22 18:20) Protime With Inr (08/03/22 18:20) Partial Thromboplastin Time (08/03/22 18:20) Thyroid Analyzer (08/03/22 18:20) Ua Culture If Indicated (08/03/22 18:20) Erythrocyte Sedimentation Rate (08/03/22 18:20) Myoglobin Serum (08/03/22 18:20) Troponin I Abhijeet (08/03/22 18:20) Amylase (08/03/22 18:20) Beta Hydroxybutyrate (08/03/22 18:31) Hemoglobin A1c (08/03/22 18:31) Covid 19 Inhouse Test (08/03/22 18:32) Influenza A And B By Pcr (08/03/22 18:32) Isolation Central Supply Req (08/03/22 18:32) Ondansetron Injection (Zofran Injectio (08/03/22 18:45) Ondansetron Injection (Zofran Injectio (08/03/22 18:41) Chest 1 View, Ap/Pa Only (08/03/22 ) Catheter(Urinary) Insert & Ass 03,15 (08/03/22 18:49) Ed Iv/Invasive Line Start (08/03/22 18:49) Ns Iv 1000 Ml (Sodium Chloride 0.9%) (08/03/22 19:00) Fentanyl Inj (Sublimaze Injection) (08/03/22 18:49) Lidocaine 2% (Urojet) (Xylocaine Urojet) (08/03/22 19:00) Labetalol Injection (Normodyne Injection (08/03/22 19:00) Pantoprazole Injection (Protonix Injecti (08/03/22 19:00) Ct Chest/Abdomen/Pelvis Wo (08/03/22 18:52) Manual Differential (08/03/22 18:21) Arterial Blood Gas (08/03/22 19:55) Lactic Acid Analyzer (08/03/22 19:24) Blood Culture (08/03/22 19:24) Ed Iv/Invasive Line Start (08/03/22 19:24) Ns Iv 1000 Ml (Sodium Chloride 0.9%) (08/03/22 19:30) Urine Culture (08/03/22 19:24) Ed Iv/Invasive Line Start (08/03/22 19:24) Vital Signs Adult Sepsis Patie Q15M (08/03/22 19:24) O2 (08/03/22 19:24) Remove Rings In Anticipation O (08/03/22 19:24) Cefepime Injection (Maxipime Injection) (08/03/22 19:30) Free T4 (Free Thyroxine) (08/03/22 18:21) Fentanyl Inj (Sublimaze Injection) (08/03/22 20:02) Promethazine Injection (Phenergan Injec (08/03/22 20:15) Ed Iv/Invasive Line Start (08/03/22 20:03) Ns Iv 1000 Ml (Sodium Chloride 0.9%) (08/03/22 20:15) Insulin (Regular) Human (Novolin R (Per (08/03/22 20:15) Accucheck Stat ONCE (08/03/22 20:24) Ekg Tracing (08/03/22 20:24) Ekg Tracing (08/03/22 20:38) Troponin I Abhijeet (08/03/22 21:02) Ed Iv/Invasive Line Start (08/03/22 21:51) Ns Iv 1000 Ml (Sodium Chloride 0.9%) (08/03/22 22:00) Medications Given in ED Current Medications Medications Dose Ordered Sig/Doug Route Start Time Stop Time Status Last Admin Dose Admin Cefepime HCl 1000 mg/Sodium Chloride 50 ml @ 100 mls/hr ONCE ONCE IV 08/03/22 19:30 08/03/22 19:59 DC 08/03/22 19:48 100 MLS/HR Insulin Human Regular 10 unit ONCE ONCE IV 08/03/22 20:15 08/03/22 20:16 DC 08/03/22 20:17 10 UNIT Labetalol HCl 20 mg ONCE ONCE IV 08/03/22 19:00 08/03/22 19:01 DC 08/03/22 20:08 10 MG Ondansetron HCl 8 mg ONCE ONCE IVP 08/03/22 18:45 08/03/22 18:46 DC 08/03/22 18:42 8 MG Pantoprazole 40 mg ONCE ONCE IV 08/03/22 19:00 08/03/22 19:01 DC 08/03/22 19:00 40 MG Promethazine HCl 25 mg ONCE ONCE IVP 08/03/22 20:15 08/03/22 20:16 DC 08/03/22 20:08 25 MG Vital Signs/I&O 08/03/22 08/03/22 08/03/22 18:23 19:58 22:09 Temp 36.7 Pulse 101 85 Resp 16 16 B/P (MAP) 176/114 (134) 95/72 Pulse Ox 97 98 O2 Delivery Room Air Room Air 08/04/22 00:00 Intake Total 3050 ml Balance 3050 ml Capillary Refill : Less Than 3 Seconds Blood Pressure Mean: 134 Progress Note : Progress Note SEPSIS PROTOCOL INITIATED GIVEN: -IV FLUIDS -ZOFRAN AND PHENERGAN FOR CONTINUED NAUSEA/VOMITING -FENTANYL FOR HEADACHE AND ABDOMINAL PAIN -LABETALOL FOR HTN -INSULIN 1930--PT JUST BACK FROM CT, AND HAD A FEW SHORT RUNS OF SVT WITH RATES IN 150'S--DID NOT APPEAR TO BE ATRIAL FIBRILLATION. AT THIS POINT, PT HAD NOT BEEN GIVEN ANY FLUIDS OR MEDICATIONS YET. FLUIDS WERE INITIATED SOON PT GOT BACK FROM CT, WELL LABETALOL 2019--PT HAS HAD A DRAMATIC IMPROVEMENT WITH FLUIDS AND MEDICATIONS. PT IS NOW AWAKE, VERY ALERT, SITTING UP, MENTATING NORMALLY. STATES SHE FEELS MUCH BETTER. HR IS IN THE 70'S WITHOUT ECTOPY AND NORMAL SINUS RHYTHM BP IS DOWN TO 110'S / 70'S PT IS NO LONGER NAUSEATED, AND IS TAKING SOME ICE CHIPS ABDOMINAL PAIN AND HEADACHE ARE GONE. DIZZINESS IS GONE NO VOMITING OR DIARRHEA DURING ER STAY GOOD URINE OUTPUT DURING ER STAY NO CHEST PAIN DURING ER STAY NO DETERIORATION IN PT'S CONDITION DURING ER STAY. REPEAT EKG DONE, AND IS NORMAL. REPEAT TROPONIN IS NOW NEGATIVE COMPLEX MANAGEMENT DUE TO MULTIPLE COMPLAINTS/ISSUES AND CO-MORBIDITIES PT DOES NOT MEET CRITERIA FOR DKA, BUT IS LIKELY "BORDERLINE" HHNK. PT WITH LEUKOCYTOSIS WITH POSSIBLE SEPSIS, WITHOUT OBVIOUS SOURCE OF INFECTION AT THIS TIME. WILL CONTINUE EMPIRIC ANTIBIOTICS AT THIS TIME. ADDITIONALLY, SHE HAS HX OF CAD WITH STENTS, CHF, INTERMITTENT AFIB, AND SHE IS VERY HYPERTENSIVE TODAY TROPONIN IS ELEVATED--WILL DO SERIAL TROPONINS, BUT IS LIKELY DUE TO TROPONIN LEAK DUE TO SEVERE HTN. ADDITIONALLY, SHE HAD A ROUTINE STRESS TEST 2 WEEKS AGO SHOWING EXPECTED FIXED AREA OF HYPOKINESIS C/W WITH PRIOR INFARCT, AND EF 51%. SHE IS EMACIATED, HAS HISTORY OF PERIPHERAL NEUROPATHY WITH FREQUENT FALLS AND HAS HAD MULTIPLE FRACTURES IN THE LAST 2 YEARS. SHE LIVES ALONE. SHE MOVED HERE IN THE LAST 2 YEARS FROM [place]. DISCUSSED TEST RESULTS, AND NEED FOR ADMIT AND PT IS AGREEABLE TO PLAN OF CARE. PT STATES SHE WISHES TO BE A FULL CODE. EXTENSIVELY REVIEWED PRIOR RECORDS INCLUDING ER VISITS, ADMITS, H&P'S, CONSULTS, TESTS/PROCEDURES, AND DISCHARGE SUMMARIES. ECG Initial ECG Impression Date: Aug 03, 2022 Initial ECG Impression Time: 18:40 Initial ECG Rate: 102 Initial ECG Rhythm: S.Tach (WITH PVC'S AND PAC'S) Initial ECG Impression: Nonspecific Changes Initial ECG Comparisson: Unchanged (NO SIGNFICANT CHANGES FROM PREVIOUS. ) Comment INTERPRETED BY ME EKG : EKG Time: 20:32 Rate: 85 Rhythm: Normal Sinus ECG Comparisson: Unchanged Comment EKG # 3 AT 2034, RATE 83, NSR, UNCHANGED INTERPRETED BY ME Diagnostic Imaging Comments CXR--PER RADIOLOGIST REPORT AT 1942 FINDINGS: Heart and mediastinal silhouette are normal in appearance. The lungs are clear. There is no pneumothorax or pleural fluid. IMPRESSION: Negative chest. CT HEAD--PER RADIOLOGIST REPORT AT 1942 COMPARISON: 12/19/2021. FINDINGS: There is no extra-axial fluid collection. No intracranial hemorrhage. No intracranial mass or mass effect. No midline shift. The ventricles are normal in size and position. There is no focal parenchymal abnormality in the brain. Calvarial windows appear unremarkable. IMPRESSION: Negative noncontrast brain CT. CT CHEST/ABDOMEN/PELVIS--PER RADIOLOGIST REPORT AT 2029 COMPARISON: CT abdomen and pelvis of 02/23/2022. FINDINGS: No abnormality in the trachea. No pneumonia or edema. There are no suspicious pulmonary nodules. No pleural effusion or pneumothorax. No supraclavicular or axillary lymphadenopathy. No mediastinal or hilar lymphadenopathy. Severe coronary artery calcifications are present. No pericardial effusion. Chronic appearing superior endplate fracture of T3 and T9. Old burst fracture of T12 with mild retropulsion of the ossific fragments in the spinal canal. This has undergone decompression and posterior instrumented stabilization/fusion. No free intraperitoneal air or fluid. The unenhanced liver is grossly normal. Cholecystectomy. Spleen and pancreas are normal in appearance. No adrenal mass. There is a nonobstructing 3 mm stone in the intrarenal pelvis on the left. No right-sided renal or ureteral stone. No obstructive uropathy on either side. Urinary bladder is decompressed by a Wilson catheter. Stomach is moderately distended with fluid. No dilated loop of small bowel to indicate a bowel obstruction. There is no pericolonic inflammatory change noted. Sigmoid colon diverticulosis without diverticulitis. No worrisome focal osseous lesion in the pelvis. Pins are present within the right femoral neck. Abdominal aorta is normal in caliber without feature of retroperitoneal hemorrhage. IMPRESSION: 1. No acute process in the chest, abdomen or pelvis. 2. Nonobstructing 3 mm left renal stone. Reviewed: Reviewed by Me Critical Care Note Critical Care Start Time: 18:20 Stop Time: 20:20 Total Time (minutes) 120 Departure Communication (Admissions) 2014--SPOKE WITH DR. GONZALEZ, [employer]. HE WILL BE IN TO SEE PT 2100--DR. GONZALEZ HERE TO SEE PT. HE ADVISES THERE IS NO NEED FOR EMERGENT CATH, AT THIS TIME. RECOMMENDATIONS NOTED. 2118--SPOKE WITH DR. UP, HOSPITALIST FOR [facility], ACCEPTS PT FOR ADMIT. Impression Primary Impression: Hypertensive urgency Additional Impressions: Uncontrolled diabetes mellitus Dehydration Elevated troponin POSSIBLE SEPSIS Diabetes mellitus, insulin dependent (IDDM), uncontrolled Intractable nausea and vomiting Marijuana use, continuous Smoker HX OF CAD WITH STENTS Hypothyroidism Emaciation Disposition: ADMITTED INPATIENT Condition: Improved Admissions Decision to Admit Reason: Admit from ER (General) Decision to Admit/Date: Aug 03, 2022 Time/Decision to Admit Time: 21:20 Departure-Patient Inst. Referrals: NO,LOCAL PHYSICIAN (PCP/Family) Primary Care Physician ELVIN JEAN BAPTISTE DO Aug 03, 2022 18:34
[2022-08-03] MEDS ORDERED: ONDANSETRON 4 MG/2 ML (SDV) Z0FRAN ONE (18:41)
[2022-08-03] MEDS ORDERED: ONDANSETRON 4 MG/2 ML (SDV) Z0FRAN IVP ONE (18:45)
[2022-08-03 18:46] LABS: BASOPHILS # (AUTO) 0.1 10^3/uL (0.0-0.1); BASOPHILS % (AUTO) 0 % (0-10); EOSINOPHILS % (AUTO) 0 % (0-10); HEMATOCRIT 46 % (35-52); HEMOGLOBIN 16.2 g/dL (11.5-16.0); LYMPHOCYTES # (AUTO) 1.2 10^3/uL (1.0-4.0); LYMPHOCYTES % (AUTO) 8 % (12-44); MEAN CORPUSCULAR HEMOGLOBIN 32 pg (25-34); MEAN CORPUSCULAR HGB CONC 35 g/dL (32-36); MEAN CORPUSCULAR VOLUME 89 fL (80-99); MEAN PLATELET VOLUME 10.7 fL (9.0-12.2); MONOCYTES # (AUTO) 0.5 10^3/uL (0.0-1.0); MONOCYTES % (AUTO) 4 % (0-12); NEUTROPHILS # (AUTO) 13.5 10^3/uL (1.8-7.8); NEUTROPHILS % (AUTO) 88 % (42-75); PLATELET COUNT 408 10^3/uL (130-400); WHITE BLOOD COUNT 15.4 10^3/uL (4.3-11.0)
[2022-08-03 18:47] LABS: CHLORIDE 96 MMOL/L (98-107); POTASSIUM 3.6 MMOL/L (3.6-5.0); SODIUM 136 MMOL/L (135-145)
[2022-08-03 18:48] LABS: CALCIUM 10.9 MG/DL (8.5-10.1)
[2022-08-03 18:49] LABS: AMYLASE 37 U/L (25-125); GLUCOSE 341 MG/DL (70-105)
[2022-08-03] MEDS ORDERED: fentaNYL INJ 100 MCG/2 ML AMP IVP STA ×2 (18:49→20:02)
[2022-08-03 18:50] LABS: CARBON DIOXIDE 22 MMOL/L (21-32); TOTAL PROTEIN 8.7 GM/DL (6.4-8.2)
[2022-08-03 18:51] LABS: BILIRUBIN,TOTAL 1.6 MG/DL (0.1-1.0)
[2022-08-03 18:53] LABS: ALKALINE PHOSPHATASE 100 U/L (40-136); CREATININE SERUM 1.01 MG/DL (0.60-1.30); GFR ESTIMATED 64
[2022-08-03 18:54] LABS: BUN/CREATININE RATIO 46; INR 0.9 (0.8-1.4); PROTHROMBIN TIME PATIENT 12.9 SEC (12.2-14.7)
[2022-08-03 18:56] LABS: ALANINE AMINOTRANSFERASE 20 U/L (0-55); MAGNESIUM 2.1 MG/DL (1.6-2.4)
[2022-08-03 18:57] LABS: LIPASE 25 U/L (8-78)
[2022-08-03 18:58] LABS: CREATINE KINASE 25 U/L (29-168)
[2022-08-03 19:00] LABS: BILIRUBIN,URINE NEGATIVE (NEGATIVE); CLARITY,URINE CLEAR; COLOR,URINE YELLOW; GLUCOSE, URINE (UA) 3+ (NEGATIVE); KETONES,URINE 1+ (NEGATIVE); LEUKOCYTE ESTERASE ,URINE NEGATIVE (NEGATIVE); NITRITE,URINE NEGATIVE (NEGATIVE); PROTEIN,URINE 2+ (NEGATIVE)
[2022-08-03] MEDS: LABETALOL HCL 20 MG/4 ML VIAL IV ONE ×2 (19:00→19:30)
[2022-08-03] MEDS ORDERED: NS IV 1000 ML 1,000 ML IV SCH ×4 (19:00→22:00)
[2022-08-03] MEDS ORDERED: PANTOPRAZOLE 40 MG (PROTONIX) VIAL IV ONE (19:00)
[2022-08-03 19:07] LABS: BACTERIA,URINE NEGATIVE /HPF; SQUAMOUS EPITHELIAL CELL,UR 0-2 /HPF
[2022-08-03 19:08] LABS: ERYTHROCYTE SEDIMENTATION RATE 7 MM/HR (0-30)
[2022-08-03] MEDS: LIDOCAINE UROJET 2% GEL 10 ML PKG TOP ONE ×2 (19:09→19:10)
[2022-08-03 19:12] LABS: AMPHETAMINE SCREEN, URINE NEGATIVE (NEGATIVE); BARBITURATE SCREEN URINE NEGATIVE (NEGATIVE); BENZODIAZEPINES SCREEN URINE NEGATIVE (NEGATIVE); CANNABINOID SCREEN, URINE POSITIVE (NEGATIVE); COCAINE SCREEN URINE NEGATIVE (NEGATIVE); METHADONE STAT NEGATIVE (NEGATIVE); OPIATE SCREEN URINE NEGATIVE (NEGATIVE); OXYCODONE STAT NEGATIVE (NEGATIVE); PROPOXYPHENE STAT NEGATIVE (NEGATIVE); TRICYCLIC ANTIDEPRESSANTS SCRE NEGATIVE (NEGATIVE)
[2022-08-03 19:23] LABS: LYMPHOCYTES % (MANUAL) 10 %; MONOCYTES % (MANUAL) 1 %; NEUTROPHILS % (MANUAL) 89 %; RBC MORPH NORMAL
[2022-08-03] MEDS ORDERED: CEFEPIME INJECTION 1,000 MG in NS (IVPB) 50 ML IV ONE (19:30)
--- NOTE | 2022-08-03 19:33 | Diagnostic Imaging Report ---
INDICATION: Chest pain. EXAMINATION: Frontal chest was obtained at 7:27 p.m. FINDINGS: Heart and mediastinal silhouette are normal in appearance. The lungs are clear. There is no pneumothorax or pleural fluid. IMPRESSION: Negative chest. Dictated by: Dictated on workstation # [id number]
--- NOTE | 2022-08-03 19:40 | Diagnostic Imaging Report ---
INDICATION: Hypertension and dizziness and headache. TECHNIQUE: Multiple contiguous axial images were obtained through the brain without the use of intravenous contrast. Auto Exposure Controls were utilized during the CT exam to meet ALARA standards for radiation dose reduction. COMPARISON: 12/19/2021. FINDINGS: There is no extra-axial fluid collection. No intracranial hemorrhage. No intracranial mass or mass effect. No midline shift. The ventricles are normal in size and position. There is no focal parenchymal abnormality in the brain. Calvarial windows appear unremarkable. IMPRESSION: Negative noncontrast brain CT. Dictated by: Dictated on workstation # [id number]
[2022-08-03 19:41] LABS: CREATINE KINASE MB 1.4 NG/ML (<6.6)
[2022-08-03 20:03] LABS: ABG BASE EXCESS 1.5 MMOL/L (-2.5-2.5); ABG OXYGEN SATURATION 96 % (94-100); ABG PCO2 45 MMHG (35-45); ABG PH 7.38 (7.37-7.43); ABG PO2 72 MMHG (79-93); ABG TCO2 27.6 MMOL/L (21.0-31.0)
[2022-08-03 20:05] LABS: ALLENS TEST YES-POS; INSPIRED O2 RA
[2022-08-03 20:06] LABS: PATIENT TEMP 36.7; VENTILATOR NO
[2022-08-03] MEDS ORDERED: PROMETHAZINE INJ 25 MG/ML (PHENERGAN) AMP IVP ONE (20:15)
[2022-08-03] MEDS ORDERED: inSUlin (REGULAR) HUMAN 1 UNIT/0.01 ML (CHARGE PER UNIT) IV ONE (20:15)
--- NOTE | 2022-08-03 20:16 | Diagnostic Imaging Report ---
PROCEDURE: CT chest, abdomen, and pelvis without contrast. TECHNIQUE: Multiple contiguous axial images were obtained through the chest, abdomen, and pelvis without the use of intravenous contrast. Auto Exposure Controls were utilized during the CT exam to meet ALARA standards for radiation dose reduction. INDICATION: Dizziness, headache with nausea and vomiting. Hypertension. COMPARISON: CT abdomen and pelvis of 02/23/2022. FINDINGS: No abnormality in the trachea. No pneumonia or edema. There are no suspicious pulmonary nodules. No pleural effusion or pneumothorax. No supraclavicular or axillary lymphadenopathy. No mediastinal or hilar lymphadenopathy. Severe coronary artery calcifications are present. No pericardial effusion. Chronic appearing superior endplate fracture of T3 and T9. Old burst fracture of T12 with mild retropulsion of the ossific fragments in the spinal canal. This has undergone decompression and posterior instrumented stabilization/fusion. No free intraperitoneal air or fluid. The unenhanced liver is grossly normal. Cholecystectomy. Spleen and pancreas are normal in appearance. No adrenal mass. There is a nonobstructing 3 mm stone in the intrarenal pelvis on the left. No right-sided renal or ureteral stone. No obstructive uropathy on either side. Urinary bladder is decompressed by a Wilson catheter. Stomach is moderately distended with fluid. No dilated loop of small bowel to indicate a bowel obstruction. There is no pericolonic inflammatory change noted. Sigmoid colon diverticulosis without diverticulitis. No worrisome focal osseous lesion in the pelvis. Pins are present within the right femoral neck. Abdominal aorta is normal in caliber without feature of retroperitoneal hemorrhage. IMPRESSION: 1. No acute process in the chest, abdomen or pelvis. 2. Nonobstructing 3 mm left renal stone. Dictated by: Dictated on workstation # [id number]
[2022-08-03 20:25] LABS: FREE T4 (FREE THYROXINE) 1.85 NG/DL (0.70-1.48)
--- NOTE | 2022-08-03 22:20 | CONSULTATION REPORT ---
DATE OF SERVICE: 08/03/2022 INPATIENT CONSULTATION REPORT CHIEF COMPLAINT: Hypertension, positive troponins, nausea, vomiting, chest discomfort. HISTORY OF PRESENT ILLNESS: The patient is a 62-year-old female with a history of CAD status post PCI back in 06/2021, diabetes -- insulin-dependent, hypothyroidism, GERD, diabetic nephropathy, and hyperlipidemia, who presents for evaluation of several symptoms. The patient states that approximately 4 days prior to admission, she began to experience increasing nausea, vomiting, chills, abdominal pain and loose stooling. She states that these episodes generally occur 1-2 times per week, but are often brief. However, this episode persisted for approximately 4 days, she became concerned and decided to come in for evaluation. When EMS picked her up, her blood pressures were 220s/120s. The patient states that she has had brown stools and has nonbloody, nonbilious emesis. She notes that her blood sugars at home when she has checked have not been terribly high running in the 250-300 range. When asked if she has noted that her blood pressures have been as high as they were prior to admission, she comments no. She does note that back in 02/2022, she was told to come off of her blood pressure medications and as such, she has not been taking them. She does take her aspirin and Plavix regularly, but has missed her Plavix for the past 4 days secondary to the nausea. She states that she was able to take her aspirin, however. In the emergency room, she was given Protonix 40 mg IV x1, 10 units of insulin, Phenergan, fentanyl 50 mg x2, Zofran 8 mg x1, Zofran 4 mg x1, cefepime 1 gram, labetalol 20 mg IV. EKG was performed demonstrating sinus tachycardia at 102 beats per minute, PVC, left atrial abnormality, right atrial abnormality. No overt signs of ischemia or infarct were noted. She did have a UA that came back negative for infection, but demonstrated 2+ protein, 3+ glucose, 4+ ketones with no whites. She also was found to have beta hydroxybutyrate positive. Urine tox was positive for THC. Flu A and B were negative. COVID was negative. She had a head CT, which was negative. A chest and abdomen CT demonstrated no acute process. Lactate was 1.9. Troponin was mildly elevated at 0.12. BNP was normal at 67. BUN was elevated at 46 with a creatinine of 1.0. It should be noted that she recently underwent cardiac evaluation in 06/2021. In 08/2021, she had a cardiac catheterization performed that demonstrated a distal occlusion of the left circumflex. She also had a 99% OM1 lesion for which she received two stents to that area. At that time, she was found to have an EF of 60-65% with grade 1 diastolic dysfunction, normal RV size and function and no significant valvular lesions. Recently this 06/2022, she underwent stress testing, which demonstrated an EF of 51%, basal inferolateral scar with mild krissy-infarct ischemia, which is consistent with her catheterization from approximately one year ago. Otherwise, the patient denies presyncope, syncope. No PND, orthopnea. She does note some mild chest discomfort. She denies shortness of breath. She does report a mild cough. REVIEW OF SYSTEMS: All systems were reviewed and are negative except for what has been described in HPI. MEDICATIONS: Include aspirin 81 mg p.o. daily, atorvastatin 40 mg p.o. at bedtime, gabapentin 800 mg p.o. t.i.d., ibuprofen p.r.n., insulin, Synthroid 175 mcg p.o. daily, nicotine, Prilosec. PAST MEDICAL HISTORY: Significant for CAD status post PCI, hypertension, hyperlipidemia, insulin-dependent diabetes, hypothyroidism. SOCIAL HISTORY: Significant for tobacco half pack per day, quit approximately 4 months ago. ETOH, last use was approximately 30 years ago. She reports positive marijuana use, but otherwise denies any other illicit drugs. FAMILY HISTORY: Significant for maternal uncle with coronary artery bypass graft. PHYSICAL EXAMINATION: VITAL SIGNS: T-max 36.7, heart rate 101, respiratory rate 16, blood pressure 108/30, satting greater than 97% on room air. GENERAL: She is in no acute distress. She is resting comfortably in the bed. NECK: Soft and supple. No cervical lymph node adenopathy or thyromegaly. LUNGS: Do demonstrate coarse breath sounds with mildly diminished breath sounds, but otherwise no sree wheezing, rales or rhonchi. CARDIOVASCULAR: Regular rate and rhythm, normal S1, S2. No murmurs, gallops or rubs are appreciated. ABDOMEN: Positive bowel sounds, soft, nondistended, mild tenderness throughout the 4 quadrants. EXTREMITIES: Warm and well perfused. She has no cyanosis, clubbing or edema. SKIN: No lesions, rashes or ecchymoses are noted. LABORATORY DATA AND IMAGING DATA: Significant for head CT that is negative for acute intracranial process. Chest and abdomen CT, no acute intrathoracic or intraabdominal process. Flu A and B are negative. COVID is negative. Urine tox is positive for THC. UA demonstrates 2+ protein, 3+ glucose, 4+ ketones, no white blood cells are noted. White blood cell count is elevated at 15.4, hematocrit of 46, platelets of 408. Sodium 136, potassium 3.6, chloride 96, bicarbonate 22, BUN 46, creatinine is 1.0. Lactate 1.9, magnesium 2.1, troponin 0.12. BNP 67. TSH of 0.3. Anion gap of 18. EKG demonstrates sinus tachycardia at 102 beats per minute. PVCs, left atrial abnormality, right atrial abnormality. No sree ischemia or infarct changes are noted. Transthoracic echocardiogram from 06/2021 demonstrates normal LV, RV size and function with an EF of 60-65%, grade 1 diastolic dysfunction. No significant valvular lesions are noted. Catheterization from 08/2021 demonstrates an occluded distal left circumflex, 99% OM1, status post PCI with a 3.0 x 32 LIBORIO and a 3.0 x 12 mm LIBORIO, 60% diagonal 1 lesion is also noted. Stress test in 06/2022, demonstrates an EF of 51% with basal inferolateral scar with mild krissy-infarct ischemia. ASSESSMENT AND PLAN: The patient is a 62-year-old female with the above-mentioned medical problems who presents for evaluation of nausea, vomiting, chills, abdominal pain, chest discomfort, loose stooling. 1. Hypertension. Blood pressures are quite elevated at 220s/120s. The patient states that she is not on an antihypertensive at home. We will start her on lisinopril 5 mg p.o. daily and up titrate as we go forward. 2. Hyperthyroid state. She is on Synthroid 175 mcg p.o. daily. We will go ahead and defer to hospitalist, would likely decrease the dosing of the Synthroid. Her free T4 is elevated at 1.85. 3. History of chest pain, unclear etiology, rather atypical in nature. EKG is not consistent with infarct or ischemic changes. The patient had a recent stress test not more than one month ago, which demonstrated a scar with some mild krissy-infarct ischemia, which is not terribly concerning at this point in time. I do recommend restarting her cardiotonic regimen including aspirin, statin, Plavix and we will look to add on lisinopril as mentioned above. 4. Elevated white blood cell count could be stress response in the setting of this DKA/HONC scenario. There could be an underlying infection. UA is negative. CT scanning of the chest and abdomen have been negative, could consider sending off blood cultures just to ensure we are not missing anything. I will send off with order that now. 5. Ketosis. Beta hydroxybutyrate is positive. Positive ketones noted in the urine. Blood sugars are not terribly elevated. The patient states that she has not been able to keep food down for the past 4 days. Recommend IV fluid hydration, blood sugar control and identifying an etiology for this presentation. DISPOSITION: Cardiology would not be available until 08/08/2022 after today. For any concerning cardiac complaints, may want to consider transfer. Thank you very much for allowing me to participate in her care. Job ID: [id number] DocumentID: [id number] Dictated Date: 08/03/2022 21:47:42 Radar Scientist Date: 08/03/2022 22:17:00 Dictated By: TAMMI GONZALEZ MD
[2022-08-03 22:26] VITALS: BP 113/73
[2022-08-03] MEDS ORDERED: LABETALOL HCL 20 MG/4 ML VIAL IV PRN (22:45)
[2022-08-03] MEDS ORDERED: PROMETHAZINE INJ 25 MG/ML (PHENERGAN) AMP IVP PRN (22:45)
[2022-08-03] MEDS ORDERED: CEFEPIME 1,000 MG/NS 50 ML IVPB IV SCH ×2 (23:00)
[2022-08-03] MEDS: NS IV 1000 ML 1,000 ML IV SCH (23:09)
[2022-08-04] VITALS (8 sets, daily range): BP systolic 85–141; BP diastolic 62–93
[2022-08-04] MEDS: CEFEPIME 1,000 MG/NS 50 ML IVPB IV SCH ×8 (01:32→20:13)
[2022-08-04] MEDS: inSUlin ASPART (NovoLOG) 1 UNIT/0.01 ML (CHARGE PER UNIT) SC SCH ×4 (06:00→20:12)
[2022-08-04 06:11] LABS: BASOPHILS # (AUTO) 0.1 10^3/uL (0.0-0.1); BASOPHILS % (AUTO) 1 % (0-10); EOSINOPHILS % (AUTO) 0 % (0-10); HEMATOCRIT 36 % (35-52); HEMOGLOBIN 12.5 g/dL (11.5-16.0); LYMPHOCYTES # (AUTO) 2.5 10^3/uL (1.0-4.0); LYMPHOCYTES % (AUTO) 21 % (12-44); MEAN CORPUSCULAR HEMOGLOBIN 32 pg (25-34); MEAN CORPUSCULAR HGB CONC 35 g/dL (32-36); MEAN CORPUSCULAR VOLUME 92 fL (80-99); MEAN PLATELET VOLUME 10.6 fL (9.0-12.2); MONOCYTES # (AUTO) 1.1 10^3/uL (0.0-1.0); MONOCYTES % (AUTO) 9 % (0-12); NEUTROPHILS # (AUTO) 8.5 10^3/uL (1.8-7.8); NEUTROPHILS % (AUTO) 69 % (42-75); PLATELET COUNT 271 10^3/uL (130-400); WHITE BLOOD COUNT 12.3 10^3/uL (4.3-11.0)
[2022-08-04 06:12] LABS: ALBUMIN 3.5 GM/DL (3.2-4.5); BILIRUBIN,TOTAL 1.2 MG/DL (0.1-1.0); CALCIUM 8.4 MG/DL (8.5-10.1); CREATININE SERUM 0.71 MG/DL (0.60-1.30); POTASSIUM 3.2 MMOL/L (3.6-5.0); TOTAL PROTEIN 5.8 GM/DL (6.4-8.2)
--- NOTE | 2022-08-04 06:14 | History & Physical-Hospitalist ---
History of Present Illness HPI/Chief Complaint CC: N/V with elevated BP HPI: This is a 62yoWF clinic patient of [facility] who presented to the ER with complaints of N/V and elevated sugar and BP for the past 48 hours. Patient reports she has "not been the same" since her femur fracture and resides at home with minimal activity of help. IVF initiated along with BP meds and placed on Tely and currently much better. Home meds will be restarted and we will move her to [facility]. Source: patient Exam Limitations: no limitations Date Seen 08/04/22 Time Seen by a Provider: 11:00 Attending Physician [place] PCP Admitting Physician: Deb Moulton MD Attending Physician: Deb Moulton MD Referring Physician Date of Admission Aug 03, 2022 at 22:10 Home Medications & Allergies Home Medications Reviewed patient Home Medication Reconciliation performed by pharmacy medication reconciliations certified medical technician and/or nursing. Patients Allergies have been reviewed. Allergies Allergies Coded Allergies Penicillins (Verified Allergy, Unknown, 12/15/15) Past [id number]-Exbpgl Hx Patient Social History Marrital Status: single Employed/Student: unemployed Tobacco Use?: Yes Tobacco type used: Cigarettes Smoking Status: Current Everyday Smoker Smokeless Tobacco Frequency: Former User Use of E-Cig and/or Vaping dev: No Substance use?: Yes Substance type: Marijuana Substance frequency: Couple times a week Alcohol Use?: Yes Pt feels they are or have been: No Immunizations Up To Date Tetanus Booster (TDap): Unknown Hepatitis A: No Hepatitis B: No PED Vaccines UTD: Yes Seasonal Allergies Seasonal Allergies: No Current Status status: No status: No Advance Directives: No Advance Directive Location: Home Communicates: Verbally Primary Language: [place]alander Preferred Spoken Language: [place]alander Is interpretation needed?: No Past Medical History Surgeries: Abdominal, Appendectomy, Section, Coronary Stent, Gallbladder, Hysterectomy, Orthopedic, Tonsillectomy Sleep Apnea Currently Using CPAP: No Atrial Fibrillation, Coronary Artery Disease, High Cholesterol, Hypertension, Irregular Heartbeat, Valvular Heart Disease Neuropathy 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 History: Hysterectomy, Menopausal Renal Failure Arthritis, Back Injury, Chronic Back Pain, Fractures Diabetes, Insulin dep, Hypothyroidsim Anxiety, Bipolar, Depression Blood Disorders: No PMHx: DMII HTN Palpitations HLD CRI Scleroderma Raynaud's phenomenon Osteopenia Fibromyalgia CAD- stents x 2 Chronic diastolic heart failure SurgHx: Back surgery after burst fracture 2020 Cholecystectomy Hysterectomy, bilateral salpingoophorectomy Family Medical History Cancer, Diabetes, Psychiatric Problems SOCIAL HISTORY: -SMOKES 1 PPD -ETOH--HISTORY OF ABUSE, CLAIMS NO ALCOHOL X 30 YEARS -DRUGS--DAILY/REGULAR THC USE PAST SURGICAL HISTORY: -APPENDECTOMY -CHOLECYSTECTOMY - X 2 -HYSTERECTOMY / BILATERAL SALPINGO-OOPHORECTOMY -BACK SURGERY WITH RODS 08/24/2020 DUE TO TRAUMA / FALL -RIGHT FEMUR FX/ORIF 03/03/[address] GUTIERREZ PT FELL ON 08/20/20, HAD T12 BURST FRACTURE AND RIGHT WRIST FRACTURE AND WAS TRANSFERRED TO [facility] ON 08/24/20, PT HAD T12-L1 LAMINECTOMY AND BILATERAL DECOMPRESSION, AND T10-T11, T11-T12, T12-L1, L1-L2 POSTERIOR LATERAL FUSION USING Material Mix[employer] PEDICLE SCREWS AND LOCAL BONE GRAFT BY DR. STEINER. PT WITH MULTIPLE FALLS AND HAS HAD MULTIPLE FRACTURES IN THE LAST 2 YEARS, INCLUDING SPINE FRACTURES AND RIGHT HIP FRACTURE REQUIRING SURGERY. ADDITIONALLY SHE HAS HAD FRACTURES OF HER RIGHT CLAVICLE AND RIGHT WRIST FRACTURE WHICH DID NOT REQUIRE SURGERY. CARDIAC CATH 08/24/[address] NAIK: CONCLUSIONS: 1. Coronary artery disease primarily consisting of distal occlusion of a codominant left circumflex and a long, up to 99% stenosis in the first obtuse marginal that was successfully stented with overlapping Skypoint 3.0 x 32 mm and Skypoint 3.0 x 12 mm stents with reduction of restenosis to 0% residual and improvement of flow from ZAHIRA 2 to ZAHIRA 3. The first diagonal branch, left anterior descending artery is of a small caliber and has 60% proximal stenosis. The rest of the vessels have diffuse mild to moderate plaque. 2. Well preserved global left ventricular systolic function. 3. Localized posterobasal akinesis. 4. Left ventricular end-diastolic pressure 12 mmHg. STRESS TEST 07/19/[address] NAIK: -FINDINGS: Baseline images were carried out after injection of 10.75 mCi of technetium-99m tetrofosmin. This was followed by 0.4 mg regadenoson and 30.2 mCi of technetium-99m tetrofosmin for stress imaging. The electrocardiogram showed sinus rhythm at baseline. It did not change significantly with the regadenoson infusion. The patient tolerated the procedure well. Isolated premature ventricular contractions were seen during the study. The patient noted some shortness of breath following regadenoson infusion, which resolved in a few minutes. Review of images at rest and following stress indicate a relatively small basal inferolateral perfusion defect, which appears predominantly fixed. Gated images showed localized inferolateral hypokinesis. Left ventricular ejection fraction is calculated to be 51%. CONCLUSIONS: 1. This study is suggestive of basal inferolateral myocardial infarction with a small amount of krissy-infarct ischemia. 2. Localized, basal inferolateral hypokinesis. 3. Well preserved global left ventricular systolic function, left ventricular systolic function with an ejection fraction of 51%. Review of Systems Constitutional: see HPI, dizziness, malaise, weakness EENTM: no symptoms reported Respiratory: no symptoms reported Cardiovascular: no symptoms reported Gastrointestinal: nausea, vomiting Genitourinary: no symptoms reported Musculoskeletal: back pain, joint pain Skin: no symptoms reported Psychiatric/Neurological: Anxiety, Depressed All Other Systems Reviewed Negative Unless Noted: Yes Physical Exam Physical Exam Vital Signs Vital Signs - First Documented 08/03/22 08/03/22 18:23 19:58 Temp 36.7 Pulse 101 Resp 16 B/P (MAP) 176/114 (134) Pulse Ox 97 O2 Delivery Room Air Capillary Refill : Less Than 3 Seconds Height, Weight, BMI Height: 5'7.00" Weight: 165lbs. 0.0oz. [id number]; 20.43 BMI Method:Stated General Appearance: No Apparent Distress, Anxious, Chronically ill Eyes: Right Eye Normal Inspection, Right Eye PERRL HEENT: PERRL/EOMI, Normal ENT Inspection, Pharynx Normal, Moist Mucous Membranes Neck: Full Range of Motion, Normal Inspection, Non Tender Respiratory: Chest Non Tender, Lungs Clear, Normal Breath Sounds, No Accessory Muscle Use, No Respiratory Distress Cardiovascular: Regular Rate, Rhythm, No Edema, No Gallop, No JVD, No Murmur, Normal Peripheral Pulses Gastrointestinal: Normal Bowel Sounds, No Organomegaly, No Pulsatile Mass, Non Tender, Soft Back: Normal Inspection, No CVA Tenderness, No Vertebral Tenderness Extremity: Normal Capillary Refill, Normal Inspection, Normal Range of Motion, Non Tender, No Calf Tenderness, No Pedal Edema Neurologic/Psychiatric: Alert, Oriented x3, No Motor/Sensory Deficits, Normal Mood/Affect Skin: Normal Color, Warm/Dry Lymphatic: No Adenopathy Results Results/Procedures Labs Laboratory Tests 08/03/22 18:21 08/04/22 04:35 08/04/22 05:58 Patient resulted labs reviewed. Assessment/Plan Admission Diagnosis Assessment: N/V refractory Elevated BP Elevated glucose Acute bronchitis Recent femur fracture THC use DM Hypothyroidism Plan: Replace K+ Move to 4th Lovenox Insulin BP management Admission Status: Inpatient Order (span 2 midnights) Reason for Inpatient Admission: resp failure with HTN urgency ASHLYN WINTERS DO Aug 04, 2022 06:14
[2022-08-04] MEDS: ONDANSETRON 4 MG/2 ML (SDV) Z0FRAN IV PRN ×2 (08:26→20:16)
[2022-08-04] MEDS: fentaNYL INJ 100 MCG/2 ML AMP IV PRN ×5 (08:35→21:52)
[2022-08-04] MEDS ORDERED: lisINopril 5 MG (PRINIVIL) TABLET PO SCH (09:00)
[2022-08-04] MEDS ORDERED: PANTOPRAZOLE 40 MG (PROTONIX) VIAL IV SCH (09:00)
[2022-08-04] MEDS: NS IV 1000 ML 1,000 ML IV SCH ×3 (09:26→17:44)
[2022-08-04] MEDS: CLOPIDOGREL 75 MG (PLAVIX) TABLET PO SCH (10:35)
[2022-08-04] MEDS ORDERED: PROMETHAZINE INJ 25 MG/ML (PHENERGAN) AMP IM PRN (11:15)
[2022-08-04] MEDS ORDERED: METOCLOPRAMIDE INJ 10 MG/2 ML (REGLAN) IVP PRN (11:15)
[2022-08-04] MEDS ORDERED: CATHETER FLUSH 10 ML SYR IVP PRN (12:45)
[2022-08-04] MEDS ORDERED: BACL5SOL2 PO (13:33)
[2022-08-04] MEDS ORDERED: CLOP-31 PO (13:33)
[2022-08-04] MEDS ORDERED: ESCI20TA39 PO (13:33)
[2022-08-04] MEDS ORDERED: LEVO200T6 PO (13:33)
[2022-08-04] MEDS ORDERED: LISI40TA9 PO (13:33)
[2022-08-04] MEDS ORDERED: ASPI-1238 PO (13:33)
[2022-08-04] MEDS ORDERED: BACLOFEN 10 MG (LIORESAL) TAB PO PRN (19:15)
[2022-08-04] MEDS: PANTOPRAZOLE 40 MG (PROTONIX) TAB PO SCH (20:13)
[2022-08-04] MEDS: ASPIRIN E.C. 81 MG (ECOTRIN) TAB PO SCH (20:13)
[2022-08-04] MEDS ORDERED: MAGNESIUM 1 GM/100 ML IVPB 100 ML IV ONE (21:15)
[2022-08-04] MEDS ORDERED: MELATONIN 3 MG TABLET PO PRN (21:30)
[2022-08-04] MEDS ORDERED: ANTACID SUSP 30 ML UDC (MYLANTA) PO PRN (21:30)
[2022-08-04] MEDS ORDERED: MILK OF MAGNESIA 400 MG/5 ML 30 ML UDC PO PRN (21:30)
[2022-08-04] MEDS ORDERED: CALCIUM CARBONATE 500 MG (TUMS) TAB.CHEW PO PRN (21:30)
[2022-08-04] MEDS ORDERED: ACETAMINOPHEN 325 MG TABLET PO PRN (21:30)
[2022-08-04] MEDS ORDERED: diphenhydrAMINE 50 MG/ML INJ (BENADRYL) IVP PRN (21:30)
[2022-08-04] MEDS ORDERED: diphenhydrAMINE 25 MG TAB (BENADRYL) PO PRN (21:30)
[2022-08-04] MEDS ORDERED: polyethylene glycoL POWDER 17 GM (MIRALAX) PACK PO PRN (21:30)
[2022-08-04] MEDS ORDERED: ONDANSETRON 4 MG/2 ML (SDV) Z0FRAN IV PRN (21:30)
[2022-08-04] MEDS ORDERED: HYDROmorphone 2 MG/ML VIAL (DILAUDID) IV PRN (21:30)
[2022-08-04] MEDS ORDERED: LACTULOSE SYRUP 10GM/15ML (ENULOSE) 30ML UDC PO PRN (21:30)
[2022-08-04] MEDS ORDERED: BISACODYL 10 MG SUPP (DULCOLAX) PR PRN (21:30)
[2022-08-04] MEDS ORDERED: RT-ALBUTEROL SULF 2.5 MG/3 ML PRE-MIX VIAL INH PRN (22:00)
[2022-08-04] MEDS: POTASSIUM CL 10MEQ/50ML IVPB 50 ML IV SCH ×2 (22:57→23:46)
[2022-08-05] MEDS: POTASSIUM CL 10MEQ/50ML IVPB 50 ML IV SCH ×2 (00:46→01:43)
[2022-08-05] MEDS: ONDANSETRON 4 MG/2 ML (SDV) Z0FRAN IV PRN ×2 (01:42→06:06)
[2022-08-05] MEDS: CEFEPIME 1,000 MG/NS 50 ML IVPB IV SCH ×4 (02:46→09:26)
[2022-08-05] MEDS: NS IV 1000 ML 1,000 ML IV SCH (02:46)
[2022-08-05 03:03] VITALS: BP 142/79
[2022-08-05 05:42] LABS: BASOPHILS # (AUTO) 0.1 10^3/uL (0.0-0.1); BASOPHILS % (AUTO) 1 % (0-10); EOSINOPHILS # (AUTO) 0.1 10^3/uL (0.0-0.3); EOSINOPHILS % (AUTO) 1 % (0-10); HEMATOCRIT 38 % (35-52); LYMPHOCYTES # (AUTO) 4.1 10^3/uL (1.0-4.0); LYMPHOCYTES % (AUTO) 30 % (12-44); MEAN CORPUSCULAR HEMOGLOBIN 32 pg (25-34); MEAN CORPUSCULAR HGB CONC 34 g/dL (32-36); MEAN CORPUSCULAR VOLUME 93 fL (80-99); MEAN PLATELET VOLUME 10.5 fL (9.0-12.2); MONOCYTES % (AUTO) 8 % (0-12); NEUTROPHILS # (AUTO) 8.2 10^3/uL (1.8-7.8); NEUTROPHILS % (AUTO) 60 % (42-75); PLATELET COUNT 272 10^3/uL (130-400); WHITE BLOOD COUNT 13.6 10^3/uL (4.3-11.0)
[2022-08-05] MEDS: inSUlin ASPART (NovoLOG) 1 UNIT/0.01 ML (CHARGE PER UNIT) SC SCH ×4 (05:44→20:14)
--- NOTE | 2022-08-05 05:44 | Progress Note - Hospitalist ---
Subjective HPI/CC On Admission Date Seen by Provider: Aug 05, 2022 Time Seen by Provider: 11:00 CC: N/V with elevated BP HPI: This is a 62yoWF clinic patient of [facility] who presented to the ER with complaints of N/V and elevated sugar and BP for the past 48 hours. Patient reports she has "not been the same" since her femur fracture and resides at home with minimal activity of help. IVF initiated along with BP meds and placed on Tely and currently much better. Home meds will be restarted and we will move her to 4th. Subjective/Events-last exam Improved overall HLIVF Ambulate PT OT ordered Very frail chronically No pain reported Nausea Review of Systems General: Fatigue, Malaise Gastrointestinal: Nausea Focused Exam Lactate Level 08/03/22 19:40: Lactic Acid Level 1.86 Time of Focused Exam: 20:20 Objective Exam Vital Signs Vital Signs Date Time Temp Pulse Resp B/P (MAP) Pulse Ox O2 Delivery O2 Flow Rate FiO2 08/05/22 20:26 Room Air 08/05/22 19:40 37.2 80 20 98/55 (69) 98 08/04/22 21:43 21 Capillary Refill : Less Than 3 Seconds General Appearance: No Apparent Distress, WD/WN, Chronically ill Respiratory: Lungs Clear, Normal Breath Sounds Cardiovascular: Regular Rate, Rhythm Neurologic/Psychiatric: Alert, Oriented x3, Depressed Affect Results/Procedures Lab Laboratory Tests 08/05/22 05:34 Patient resulted labs reviewed. Assessment/Plan Assessment and Plan Assess & Plan/Chief Complaint Assessment: N/V refractory Elevated BP Elevated glucose Acute bronchitis-resolved so DC abx Recent femur fracture THC use DM Hypothyroidism Plan: Replace K+ Move to 4th Lovenox Insulin BP management ASHLYN WINTERS DO Aug 05, 2022 05:44
[2022-08-05 05:58] LABS: ALBUMIN 3.6 GM/DL (3.2-4.5); POTASSIUM 3.8 MMOL/L (3.6-5.0)
[2022-08-05 06:00] LABS: CALCIUM 8.7 MG/DL (8.5-10.1)
[2022-08-05 06:03] LABS: BILIRUBIN,TOTAL 2.1 MG/DL (0.1-1.0)
[2022-08-05 06:04] LABS: CREATININE SERUM 0.72 MG/DL (0.60-1.30)
[2022-08-05] MEDS: LEVOTHYROXINE 100 MCG (LEVOTHROID) TAB PO SCH (06:05)
[2022-08-05 07:05] VITALS: BP 141/74
[2022-08-05] MEDS ORDERED: NON-FORMULARY MEDICATION 1 EA EA (Levothyroxine Sodium 200 MCG) PO SCH (09:00)
[2022-08-05] MEDS ORDERED: NON-FORMULARY MEDICATION 1 EA EA (Escitalopram Oxalate 20 MG) PO SCH (09:00)
[2022-08-05] MEDS ORDERED: CLOPIDOGREL 75 MG (PLAVIX) TABLET PO SCH (09:00)
[2022-08-05] MEDS ORDERED: NON-FORMULARY MEDICATION 1 EA EA (Insulin Degludec (Tresiba Flextouch U-100) 25 UNIT) SQ SCH (09:00)
[2022-08-05] MEDS: CLOPIDOGREL 75 MG (PLAVIX) TABLET PO SCH (09:26)
[2022-08-05] MEDS: lisINopril 40 MG (PRINIVIL) TABLET PO SCH (09:26)
[2022-08-05] MEDS: ENOXAPARIN 40 MG/0.4 ML (LOVENOX) SYR SC SCH (09:26)
[2022-08-05] MEDS: ASPIRIN E.C. 81 MG (ECOTRIN) TAB PO SCH ×2 (09:26→16:52)
[2022-08-05] MEDS: SENNOSIDES 8.6 MG (SENOKOT) TAB PO SCH ×2 (09:26→20:14)
[2022-08-05] MEDS: PANTOPRAZOLE 40 MG (PROTONIX) TAB PO SCH ×2 (09:26→20:14)
[2022-08-05] MEDS: DOCUSATE SODIUM 100 MG (COLACE) CAP PO SCH ×2 (09:26→20:14)
--- NOTE | 2022-08-05 11:10 | Occupational Therapy Eval ---
OT Evaluation-General/PLF Medical Diagnosis Admission Date Aug 03, 2022 at 22:10 Medical Diagnosis: N/V, elevated BP Onset Date: Aug 04, 2022 Therapy Diagnosis Therapy Diagnosis: weakness Height/Weight Height (Feet): 5 Height (Inches): 7.00 Weight (Pounds): 165 Weight (Ounces): 0.0 Precautions Precautions/Isolations: Standard Precautions Referral Referral Reason: Evaluation/Treatment Medical History Pertinent Medical History: Atrial Fib, DM, Fractures, HTN, Neuropathy, Renal Insufficiency, Smoking Current History N/V/D x 4 days w/ headache Reviewed History: Yes Social History Home: Single Level Current Living Status: Alone Lives in [place] ADL-Prior Level of Function SCALE: Activities may be completed with or without assistive devices. 0-Vtrxiuguuk-uafmips completes the activity by him/herself with no assistance from a helper. 5-Set-up or Clean-up Assistance-helper sets up or cleans up; patient completes activity. [place] assists only prior to or following the activity. 4-Supervision or Touching Assistance-helper provides verbal cues and/or touching/steadying and/or contact guard assistance as patient completes activity. Assistance may be provided throughout the activity or intermittently. 3-Partial/Moderate Assistance-helper does LESS THAN HALF the effort. [place] lifts, holds or supports trunk or limbs, but provides less than half the effort. 2-Substantial/Maximal Assistance-helper does MORE THAN HALF the effort. [place] lifts or holds trunk or limbs and provides more than half the effort. 1-Dsxeamohd-uuupeb does ALL the effort. Patient does none of the effort to complete the activity. Or, the assistance of 2 or more helpers is required for the patient to complete the activity. If activity was not attempted, code reason: 7-Patient Refused. 9-Not Applicable-not attempted and the patient did not perform the activity before the current illness, exacerbation or injury. 10-Not Attempted due to Environmental Limitations-(lack of equipment, weather restraints, etc.). 88-Not Attempted due to Medical Conditions or Safety Concerns. Self Care: Independent Functional Cognition: Needed Some Help Drive Self: Yes OT Current Status Subjective Agreeable to OT Mental Status/Objective Patient Orientation: Person, Place, Time, Situation Attachments: Pollock Catheter, IV Current Glasses/Contacts: Yes Upper Extremity ROM BUE ROM WFLS Upper Extremity Coordination BUE WFLS, patient reports has scheduled appointment for balance therapy at [facility] Upper Extremity Strength -4/5 grossly BUE ADL-Treatment Eating (QC): 6 Oral Hygiene (QC): 6 (standing at sink) Shower/Bathe Self (QC): 7 (patient reports nursing to give shower following th erapy) Upper Body Dressing (QC): 5 (VCs d/t IV) Lower Body Dressing (QC): 5 (VCs d/t pollock, nop physical assist needed) On/Off Footwear (QC): 6 Toileting Hygiene (QC): 6 Education OT Patient Education: Energy conservation, Modified ADL techniques, Progress toward Goal/Update tx plan, Purpose of tx/functional activities, Safety issues Teaching Recipient: Patient Teaching Methods: Demonstration Response to Teaching: Verbalize Understanding, Return Demonstration OT Gear And Spline Grinder Goals Gear And Spline Grinder Goals 1=Demonstrate adherence to instructed precautions during ADL tasks. 2=Patient will verbalize/demonstrate understanding of assistive devices/modifications for ADL. 3=Patient will improve strength/tolerance for activity to enable patient to perform ADL's. OT Education/Plan Problem List/Assessment Assessment: No Skilled OT Needs ID'd Discharge Recommendations Plan/Recommendations: Discontinue OT Therapy Discharge Recommendati: Home & Family Treatment Plan/Plan of Care Treatment,Training & Education: Yes Patient would benefit from OT for education, treatment and training to promote independence in ADL's, mobility, safety and/or upper extremity function for ADL's. Plan of Care: OTHER (EVAL ONLY) Treatment Duration: Aug 05, 2022 Frequency: 1 time per week Agreement: Yes All needs met Time Start Time: 09:04 Stop Time: 09:18 DATE: Aug 05, 2022 Total Time Billed (hr/min): 14 Billed Treatment Time EMMY AL OT Aug 05, 2022 11:10
[2022-08-05 11:15] VITALS: BP 146/76
--- NOTE | 2022-08-05 11:18 | Physical Therapy Evaluation ---
PT Evaluation-General Medical Diagnosis Admission Date Aug 03, 2022 at 22:10 Medical Diagnosis: uncontrolled DM, HTN and elevated troponin Onset Date: Aug 03, 2022 Therapy Diagnosis Therapy Diagnosis: debility Height/Weight Height (Feet): 5 Height (Inches): 7.00 Weight (Pounds): 165 Weight (Ounces): 0.0 Precautions Precautions/Isolations: Standard Precautions Referral Physician: Zane Reason for Referral: Evaluation/Treatment Medical History Pertinent Medical History: Atrial Fib, DM, Fractures, HTN, Neuropathy, Renal Insufficiency, Smoking Current History EMS secondary to HTN/dizziness Reviewed History: Yes Social History Home: Apartment Prior Prior Level of Function SCALE: Activities may be completed with or without assistive devices. 7-Vywjsvshud-hrejyxg completes the activity by him/herself with no assistance from a helper. 5-Set-up or Clean-up Assistance-helper sets up or cleans up; patient completes activity. [place] assists only prior to or following the activity. 4-Supervision or Touching Assistance-helper provides verbal cues and/or touc franky/steadying and/or contact guard assistance as patient completes activity. Assistance may be provided throughout the activity or intermittently. 3-Partial/Moderate Assistance-helper does LESS THAN HALF the effort. [place] lifts, holds or supports trunk or limbs, but provides less than half the effort. 2-Substantial/Maximal Assistance-helper does MORE THAN HALF the effort. [place] lifts or holds trunk or limbs and provides more than half the effort. 1-Ehajhjwop-cflixn does ALL the effort. Patient does none of the effort to complete the activity. Or, the assistance of 2 or more helpers is required for the patient to complete the activity. If activity was not attempted, code reason: 7-Patient Refused. 9-Not Applicable-not attempted and the patient did not perform the activity before the current illness, exacerbation or injury. 10-Not Attempted due to Environmental Limitations-(lack of equipment, weather restraints, etc.). 88-Not Attempted due to Medical Conditions or Safety Concerns. Bed Mobility: 6 Transfers (B,C,W/C): 6 Gait: 6 Indoor Mobility (Ambulation): Independent Prior Device Use: cane PT Evaluation-Current Subjective Patient agrees to PT. Pain Numeric Pain Scale: 0-No Pain Location: No Pain Reported Objective Patient Orientation: Normal For Age Attachments: Wilson Catheter, IV ROM/Strength ROM Lower Extremities bilateral LE WFL Strength Lower Extremities 4/5 grossly bilateral LE all planes Integumentary/Posture Bladder Incontinence: Wilson Cath Posture WFL Neuromuscular (Tone, Coordination, Reflexes) grossly intact Sensory Vision: Functional Hearing: Functional Transfers Sit to Lying (QC): 6 Lying to Sitting/Side of Bed(Q: 6 Sit to Stand (QC): 6 Gait Mode of Locomotion: Walk Anticipated Mode of Locomotion: Walk Walk 10 feet (QC): 6 Walk 50 ft with 2 Turns(QC): 6 Walk 150 ft (QC): 6 Distance: >500' Gait Assistive Device: FWW Comments/Gait Description safe and functional with no deviation Balance Sitting Static: Normal Sitting Dynamic: Normal Standing Static: Normal Standing Dynamic: Normal Assessment/Needs Patient is currently at independent OF with all gross motor skills and does not require skilled PT intervention. Rehab Potential: Fair PT Plan Treatment/Plan Treatment Plan: Discontinue PT Treatment Duration: Aug 05, 2022 Frequency: 1 time per week Estimated Hrs Per Day: .25 hour per day Patient and/or Family Agrees t: Yes Time Time In: 913 Time Out: 923 DATE: Aug 05, 2022 Total Billed Treatment Time: 10 Total Billed Treatment 1 visit EVLowC 10 min ADRIEL MERCADO PT Aug 05, 2022 11:18
[2022-08-05] MEDS: ONDANSETRON 4 MG (ZOFRAN) ORAL DISSOLVE TAB PO PRN ×3 (11:51→22:47)
[2022-08-05 15:46] VITALS: BP 154/70
[2022-08-05] MEDS: ALPRAZolam 0.25 MG (XANAX) TAB PO PRN (16:50)
[2022-08-05 19:40] VITALS: BP 98/55
[2022-08-06 00:08] VITALS: BP 129/68
[2022-08-06] MEDS: ALPRAZolam 0.25 MG (XANAX) TAB PO PRN ×2 (00:56→08:48)
[2022-08-06 03:40] VITALS: BP 127/68
[2022-08-06] MEDS: inSUlin ASPART (NovoLOG) 1 UNIT/0.01 ML (CHARGE PER UNIT) SC SCH ×2 (06:05→10:43)
[2022-08-06] MEDS: LEVOTHYROXINE 100 MCG (LEVOTHROID) TAB PO SCH (06:05)
[2022-08-06 06:25] LABS: BASOPHILS # (AUTO) 0.1 10^3/uL (0.0-0.1); BASOPHILS % (AUTO) 1 % (0-10); EOSINOPHILS # (AUTO) 0.2 10^3/uL (0.0-0.3); EOSINOPHILS % (AUTO) 2 % (0-10); HEMATOCRIT 37 % (35-52); HEMOGLOBIN 12.9 g/dL (11.5-16.0); LYMPHOCYTES # (AUTO) 3.6 10^3/uL (1.0-4.0); LYMPHOCYTES % (AUTO) 34 % (12-44); MEAN CORPUSCULAR HEMOGLOBIN 32 pg (25-34); MEAN CORPUSCULAR HGB CONC 35 g/dL (32-36); MEAN CORPUSCULAR VOLUME 92 fL (80-99); MEAN PLATELET VOLUME 10.8 fL (9.0-12.2); MONOCYTES # (AUTO) 0.9 10^3/uL (0.0-1.0); MONOCYTES % (AUTO) 8 % (0-12); NEUTROPHILS # (AUTO) 5.8 10^3/uL (1.8-7.8); NEUTROPHILS % (AUTO) 55 % (42-75); PLATELET COUNT 259 10^3/uL (130-400); WHITE BLOOD COUNT 10.6 10^3/uL (4.3-11.0)
[2022-08-06 06:34] LABS: ALBUMIN 3.4 GM/DL (3.2-4.5); BILIRUBIN,TOTAL 1.5 MG/DL (0.1-1.0); CALCIUM 9.1 MG/DL (8.5-10.1); CREATININE SERUM 0.63 MG/DL (0.60-1.30); POTASSIUM 3.1 MMOL/L (3.6-5.0); TOTAL PROTEIN 5.7 GM/DL (6.4-8.2)
[2022-08-06 08:04] VITALS: BP 182/79
[2022-08-06] MEDS: PANTOPRAZOLE 40 MG (PROTONIX) TAB PO SCH (08:39)
[2022-08-06] MEDS: ASPIRIN E.C. 81 MG (ECOTRIN) TAB PO SCH (08:39)
[2022-08-06] MEDS: lisINopril 40 MG (PRINIVIL) TABLET PO SCH (08:39)
[2022-08-06] MEDS: CLOPIDOGREL 75 MG (PLAVIX) TABLET PO SCH (08:40)
[2022-08-06] MEDS: DOCUSATE SODIUM 100 MG (COLACE) CAP PO SCH (08:40)
[2022-08-06] MEDS: ENOXAPARIN 40 MG/0.4 ML (LOVENOX) SYR SC SCH (08:40)
[2022-08-06] MEDS: ONDANSETRON 4 MG (ZOFRAN) ORAL DISSOLVE TAB PO PRN ×2 (08:40→13:20)
[2022-08-06] MEDS: SENNOSIDES 8.6 MG (SENOKOT) TAB PO SCH (08:40)
[2022-08-06] MEDS ORDERED: NS (IVPB) 250 ML ONE (10:28)
[2022-08-06] MEDS: POTASSIUM CL 10MEQ/50ML IVPB 50 ML IV SCH ×2 (10:35→11:40)
[2022-08-06] MEDS ORDERED: METOCLOPRAMIDE 10 MG (REGLAN) TAB PO ONE (11:00)
[2022-08-06 11:19] VITALS: BP 133/89
[2022-08-06] MEDS ORDERED: ONDA4TAB11 SL (13:30)
--- NOTE | 2022-08-06 13:36 | Discharge Summary ---
Diagnosis/Chief Complaint Date of Admission Aug 03, 2022 at 22:10 Date of Discharge Discharge Date: Aug 06, 2022 Discharge Time: 13:33 Admission Diagnosis Assessment: N/V refractory Elevated BP Elevated glucose Acute bronchitis Recent femur fracture THC use DM Hypothyroidism Plan: Replace K+ Move to 4th Lovenox Insulin BP management [facility] Discharge Summary Discharge Physical Exam Allergies: Coded Allergies: Penicillins (Verified Allergy, Unknown, 12/15/15) Vitals & I&Os Vital Signs Date Time Temp Pulse Resp B/P (MAP) Pulse Ox O2 Delivery O2 Flow Rate FiO2 08/06/22 14:05 08/06/22 11:19 37.2 82 20 98 Room Air 08/04/22 21:43 21 General Appearance: No Apparent Distress Respiratory: Chest Non Tender, Lungs Clear, Normal Breath Sounds, No Accessory Muscle Use, No Respiratory Distress Cardiovascular: Regular Rate, Rhythm, No Edema, No Gallop, No JVD, No Murmur, Normal Peripheral Pulses Gastrointestinal: Normal Bowel Sounds, No Organomegaly, No Pulsatile Mass, Non Tender, Soft Hospital Course Was the Problem List Reviewed?: Yes HPI: This is a 62yoWF clinic patient of [facility] who presented to the ER with complaints of N/V and elevated sugar and BP for the past 48 hours. Patient reports she has "not been the same" since her femur fracture and resides at home with minimal activity of help. IVF initiated along with BP meds and placed on Tely and currently much better. Home meds will be restarted and we will move her to 4th.With the initiation of IV fluids and just being put back on 25 units of Levemir daily in addition to Zofran nausea improved and blood sugars decreased to below 200. Considering at least a 15-year history of diabetes likely not well controlled due to patient compliance issues diabetic related gastroparesis is in the differential. I did give the patient a dose of Reglan 10 mg but she stated she preferred the Zofran so the patient is being discharged on Zofran melt tabs 4 mg every 6 as needed nausea and instructed to follow-up with [facility] in the next 1 to 2 weeks. There are no other medication changes. She had no evidence for GI bleeding. From the information that we have other route I can glean from the patient was not clear why she is on dual antiplatelet therapy at this point so there would be consideration for disc ontinuing either aspirin or Plavix in the future. Labs (last 24 hrs) Laboratory Tests 08/06/22 10:32: Glucometer 140H Microbiology 08/03/22 Blood Culture - Final, Complete Staphylococcus hominis No Susceptibility Performed See Comments 08/03/22 Urine Culture - Final, Complete NO GROWTH Patient resulted labs reviewed. Pending Labs Discussion & Recommendations Discharge Planning: >30 minutes discharge planning Discharge Home Medications: Active Scripts Active Ondansetron Odt (Ondansetron) 4 Mg Tab.rapdis 4 Mg SL Q4H PRN 60 Days Reported Escitalopram Oxalate 20 Mg Tablet 20 Mg PO DAILY Levothyroxine Sodium 200 Mcg Tablet 200 Mcg PO DAILY Baclofen 5 Mg/5 Ml Solution 5-10 Mg PO BID PRN Aspirin EC (Aspirin) 81 Mg Tablet.dr 81 Mg PO BID Lisinopril 40 Mg Tablet 40 Mg PO DAILY Plavix (Clopidogrel Bisulfate) 75 Mg Tablet 75 Mg PO DAILY Atorvastatin Calcium 40 Mg Tablet 40 Mg PO HS LAST FILLED 02-20-2023 #90/90 DAY SUPPLY Tresiba Flextouch U-100 (Insulin Degludec) 100 Unit/Ml (3 Ml) Insuln.pen 25 Unit SQ DAILY LAST FILLED 12-27-2021 #10 PENS/120 DAY SUPPLY Zegerid 40 mg Capsule (Omeprazole/Sodium Bicarbonate) 40 Mg-1.1 Gram Capsule 1 Each PO BID Instructions to patient/family Please see electronic discharge instructions given to patient. Copy Copies To 2: [facility]/NAT PHILLIPS MD Aug 06, 2022 13:36
== END 2022-08-06 14:06 | disposition home or self-care (01) | DRG 391 ==
LOC: EDUNIT# 18:19 → ER 18:20 → CSD 22:10 → 4TH 08-04 14:45
PROVIDERS: ADMIT Family Medicine; ATTEND Internal Medicine
DX: R11.2 Nausea with vomiting, unspecified (principal); E11.10 Type 2 diabetes mellitus with ketoacidosis without coma; Z79.82 Long term (current) use of aspirin; Z79.4 Long term (current) use of insulin; Z79.899 Other long term (current) drug therapy; F17.210 Nicotine dependence, cigarettes, uncomplicated; G47.33 Obstructive sleep apnea (adult) (pediatric); F41.9 Anxiety disorder, unspecified; E03.9 Hypothyroidism, unspecified; I48.91 Unspecified atrial fibrillation; Z95.5 Presence of coronary angioplasty implant and graft; I50.9 Heart failure, unspecified; E11.42 Type 2 diabetes mellitus with diabetic polyneuropathy; M19.90 Unspecified osteoarthritis, unspecified site; G89.29 Other chronic pain; M54.9 Dorsalgia, unspecified; F31.9 Bipolar disorder, unspecified; I16.0 Hypertensive urgency; E86.0 Dehydration; J20.9 Acute bronchitis, unspecified; I11.0 Hypertensive heart disease with heart failure; Z20.822 Contact with and (suspected) exposure to COVID-19
CPT/HCPCS: 36415; 51702; 70450; 71045; 71250; 74176; 80053; 80306; 80320; 80329; 81000; 82010; 82150; 82550; 82553; 82805; 82947; 83036; 83605; 83690; 83735; 83874; 83880; 84439; 84443; 84484; 85007; 85025; 85027; 85610; 85652; 85730; 86141; 87040; 87077; 87088; 87636; 93005; 93041

== ENCOUNTER 2022-09-20 15:20 | Inpatient (IN) | payer MEDICARE, OTHER ==
[~2022-09-20] VITALS: Ht 170.1 cm; Wt 59.1 kg
[~2022-09-20 15:20] MED LIST changes: +BACL5SOL2 PO; +CLOP-31 PO; -INSU100I29 SC; +INSU100I30 SC; +LISI40TA9 PO; +ONDA4TAB11 SL; +SENN-271 PO; -SENN1TAB76 PO
[2022-09-20] MEDS ORDERED: ASPIRIN 81 MG CHEW (CHILDREN'S ASA) ONE (15:48)
[2022-09-20] MEDS ORDERED: ONDANSETRON 4 MG/2 ML (SDV) Z0FRAN ONE (15:48)
[2022-09-20] MEDS ORDERED: LABETALOL HCL 20 MG/4 ML VIAL ONE (15:48)
[2022-09-20 15:50] LABS: ALBUMIN 4.7 GM/DL (3.2-4.5)
[2022-09-20 15:51] LABS: CHLORIDE 94 MMOL/L (98-107); HEMATOCRIT 45 % (35-52); HEMOGLOBIN 15.8 g/dL (11.5-16.0); MEAN CORPUSCULAR HEMOGLOBIN 31 pg (25-34); MEAN CORPUSCULAR HGB CONC 35 g/dL (32-36); MEAN CORPUSCULAR VOLUME 88 fL (80-99); MEAN PLATELET VOLUME 11.7 fL (9.0-12.2); PLATELET COUNT 328 10^3/uL (130-400); POTASSIUM 4.3 MMOL/L (3.6-5.0); SODIUM 131 MMOL/L (135-145); WHITE BLOOD COUNT 14.2 10^3/uL (4.3-11.0)
[2022-09-20 15:52] LABS: CALCIUM 10.5 MG/DL (8.5-10.1)
[2022-09-20 15:53] LABS: GLUCOSE 358 MG/DL (70-105); TOTAL PROTEIN 8.6 GM/DL (6.4-8.2)
[2022-09-20 15:54] LABS: CARBON DIOXIDE 20 MMOL/L (21-32)
[2022-09-20 15:55] LABS: BILIRUBIN,TOTAL 1.2 MG/DL (0.1-1.0)
[2022-09-20 15:56] LABS: ALKALINE PHOSPHATASE 119 U/L (40-136)
[2022-09-20 15:57] LABS: CREATININE SERUM 0.85 MG/DL (0.60-1.30); GFR ESTIMATED 78; INR 0.9 (0.8-1.4); PROTHROMBIN TIME PATIENT 12.7 SEC (12.2-14.7)
[2022-09-20 15:58] LABS: BUN/CREATININE RATIO 15
[2022-09-20 15:59] LABS: ALANINE AMINOTRANSFERASE 20 U/L (0-55)
[2022-09-20 16:00] LABS: MAGNESIUM 1.5 MG/DL (1.6-2.4)
--- NOTE | 2022-09-20 16:10 | Diagnostic Imaging Report ---
EXAMINATION: CT head without contrast. TECHNIQUE: Multiple contiguous axial images were obtained through the brain without the use of intravenous contrast. All CT scans use one or more of the following dose optimizing techniques: Automated exposure control, MA and/or KvP adjustment based on patient size and exam type or iterative reconstruction. HISTORY: [place]/Dizzy. COMPARISON: 08/03/2022. FINDINGS: The ventricles and sulci are normal. No abnormal attenuation of brain parenchyma is present. No acute intracranial hemorrhage or abnormal extra-axial fluid collections are present. Calcification of the intracranial ICAs. No hyperdense vessel. The calvarium is intact. The mastoid air cells are clear. The visualized paranasal sinuses are clear. The orbits are normal. IMPRESSION: 1. No acute intracranial abnormality. Dictated by: Dictated on workstation # [id number]
[2022-09-20] MEDS ORDERED: NS IV 1000 ML 1,000 ML IV STA (16:12)
[2022-09-20] MEDS ORDERED: MAGNESIUM OXIDE (MAG-OX)400 MG TAB PO ONE (16:15)
--- NOTE | 2022-09-20 16:19 | Diagnostic Imaging Report ---
INDICATION: Chest pain. Comparison is made with prior examination of 08/03/2022. FINDINGS: The heart size, mediastinal configuration, and pulmonary vascularity are within normal limits. There is no pleural effusion, pneumothorax, or pneumonia. The osseous structures are unremarkable. IMPRESSION: No acute cardiopulmonary abnormality. Dictated by: Dictated on workstation # [id number]
--- NOTE | 2022-09-20 16:28 | Diagnostic Imaging Report ---
EXAMINATION: CT ABDOMEN/PELVIS W. TECHNIQUE: Multiple contiguous axial images were obtained through the abdomen and pelvis after administration of intravenous contrast. All CT scans use one or more of the following dose optimizing techniques: automated exposure control, MA and/or KvP adjustment based on patient size and exam type or iterative reconstruction. INDICATION: Abdominal pain. COMPARISON: 08/03/2022. FINDINGS: Lower chest: The lung bases are clear. No pericardial or pleural effusion. Peritoneum: No free intraperitoneal air or fluid. Liver and biliary system: The liver is normal. Cholecystectomy. Spleen and Pancreas: Spleen is normal. The pancreas enhances normally without mass lesion or peripancreatic inflammatory changes. Adrenals: Stable 1.0 x 1.0 cm low-attenuation left adrenal nodule. Right adrenal gland is normal. tract: The kidneys enhance normally without suspicious mass or obstruction. Urinary bladder is distended without wall thickening. Hysterectomy. No adnexal mass. GI tract: The stomach is partially filled with fluid and has no wall thickening. No bowel obstruction. No pericolonic inflammatory changes. No features of appendicitis. Vasculature and Lymph nodes: Normal caliber aorta has severe atherosclerotic calcifications. No abdominal or pelvic lymphadenopathy. Musculoskeletal: Chronic severe height loss of T12 from burst fracture which has undergone posterior instrumented fusion. No hardware complication. No acute osseous abnormality. IMPRESSION: No acute obstructive or inflammatory process. Dictated by: Dictated on workstation # [id number]
[2022-09-20 16:30] LABS: BILIRUBIN,URINE NEGATIVE (NEGATIVE); CLARITY,URINE CLEAR; COLOR,URINE YELLOW; GLUCOSE, URINE (UA) 3+ (NEGATIVE); KETONES,URINE 1+ (NEGATIVE); LEUKOCYTE ESTERASE ,URINE NEGATIVE (NEGATIVE); NITRITE,URINE NEGATIVE (NEGATIVE); PH,URINE 6.5 (5-9); PROTEIN,URINE 2+ (NEGATIVE)
[2022-09-20] MEDS ORDERED: NS 100 ML (IVPB) BAG IV ONE (16:30)
[2022-09-20] MEDS ORDERED: IOHEXOL 350 MG/ML 100 ML (OMNIPAQUE 350) VIAL IV ONE (16:30)
[2022-09-20] MEDS ORDERED: HOLD METFORMIN - RECEIVED CONTRAST 20 ML VIAL IV SCH (16:30)
--- NOTE | 2022-09-20 16:31 | ED Cardiac General ---
History of Present Illness General Chief Complaint: Chest Pain Stated Complaint: HYPERTENSION Source: patient Exam Limitations: no limitations (MADHU BOOKER) History of Present Illness Date Seen by Provider: September 20, 2022 Time Seen by Provider: 16:29 Initial Comments Patient is a 62-year-old female with a history of hypertension, type 2 diabetes, CHF who presents ED with nausea, vomiting, abdominal pain, headache blurry vision. She states symptoms started on Monday. Started feeling weak and dizzy. Started having vomiting diarrhea as well. She reports 4-5 episodes of vomiting and diarrhea daily. She states she feels dehydrated. She reports frontal head pain rates 8 out of 10 with bilateral blurry vision. She took her blood pressure that which read 220 systolic. Typically her blood pressure is 120/80. She does have a history of CHF. Denies of any lower extremity swelling. She is currently on lisinopril and metoprolol for her blood pressure. She reports generalized abdominal pain crampy constant since Monday. No bloody stools or mucousy stools. Denies fever, chest pain, cough, chest pain, unilateral muscle weakness, visual loss, fever. She does report some mild short ness of breath, (MADHU BOOKER) Allergies and Home Medications Allergies Coded Allergies: Penicillins (Verified Allergy, Unknown, 12/15/15) Patient Home Medication List Home Medication List Reviewed: Yes (MADHU BOOKER) Amlodipine Besylate (Amlodipine Besylate) 5 Mg Tablet, 5 MG PO DAILY Prescribed by: ASHLYN WINTERS on 09/22/22 1203 Aspirin (Aspirin EC) 81 Mg Tablet.dr, 81 MG PO BID, (Reported) Entered as Reported by: JENNIFER BOOTHE on 08/04/22 1333 Last Action: Reviewed Atorvastatin Calcium (Atorvastatin Calcium) 40 Mg Tablet, 40 MG PO HS, (Reported) Entered as Reported by: JENNIFER BOOTHE on 12/21/21 0915 Last Action: Reviewed Baclofen (Baclofen) 5 Mg/5 Ml Solution, 5-10 MG PO BID PRN for MUSCLE CRAMPS, (Reported) Entered as Reported by: JENNIFER BOOTHE on 08/04/22 1333 Last Action: Reviewed Clonidine HCl (Clonidine HCl) 0.1 Mg Tablet, 0.1 MG PO Q4H PRN for BP>160 Prescribed by: ASHLYN WINTERS on 09/22/22 1203 Clopidogrel Bisulfate (Plavix) 75 Mg Tablet, 75 MG PO DAILY, (Reported) Entered as Reported by: JENNIFER BOOTHE on 08/04/221332 Last Action: Reviewed Escitalopram Oxalate (Escitalopram Oxalate) 20 Mg Tablet, 20 MG PO DAILY, (Reported) Entered as Reported by: JENNIFER BOOTHE on 08/04/221332 Last Action: Reviewed Insulin Degludec (Tresiba Flextouch U-100) 100 Unit/Ml (3 Ml) Insuln.pen, 45 UNIT SQ DAILY, (Reported) Entered as Reported by: PRADEEP VICTOR on 08/24/21941 Last Action: Reviewed Levothyroxine Sodium (Levothyroxine Sodium) 200 Mcg Tablet, 200 MCG PO DAILY, (Reported) Entered as Reported by: JENNIFER BOOTHE on 08/04/221332 Last Action: Reviewed Lisinopril (Lisinopril) 40 Mg Tablet, 40 MG PO HS, (Reported) Entered as Reported by: JENNIFER BOOTHE on 08/04/221332 Last Action: Reviewed Metoprolol Succinate (Metoprolol Succinate) 50 Mg Tab.er.24h, 50 MG PO DAILY, (Reported) Entered as Reported by: JENNIFER BOOTHE on 09/21/22 115 Last Action: Reviewed Omeprazole/Sodium Bicarbonate (Zegerid 40 mg Capsule) 40 Mg-1.1 Gram Capsule, 1 EACH PO BID, (Reported) Entered as Reported by: PRADEEP VICTOR on 08/24/21941 Last Action: Reviewed Ondansetron (Ondansetron Odt) 4 Mg Tab.rapdis, 4 MG SL Q4H PRN for NAUSEA/VOMITING Prescribed by: ASHLYN WINTERS on 09/22/22 1203 Discontinued Medications Ondansetron (Ondansetron Odt) 4 Mg Tab.rapdis, 4 MG SL Q4H PRN for NAUSEA/VOMITING Discontinued Reason: No Longer Taking Prescribed by: NAT SANDOVAL on 08/06/221329 Last Action: Discontinued Review of Systems Review of Systems Constitutional: No chills, No diaphoresis, No fever, No malaise; weakness EENTM: Blurred Vision; No Double Vision, No Eye Pain Respiratory: Denies Cough; Shortness of Air Cardiovascular: Denies Chest Pain Gastrointestinal: Abdominal Pain, Diarrhea, Nausea, Vomiting Genitourinary: Denies Burning, Denies Discharge, Denies Drainage, Denies Frequency Musculoskeletal: No back pain, No gout (MADHU BOOKER) All Other Systems Reviewed Negative Unless Noted: Yes (MADHU BOOKER) Past Cyyyjim-Esyoyj-Kevvgq Hx Immunizations Up To Date Tetanus Booster (TDap): Unknown PED Vaccines UTD: Yes (MADHU BOOKER) Seasonal Allergies Seasonal Allergies: No (MADHU BOOKER) Past Medical History Surgery/Hospitalization HX: c-sect x2, back, cholecystectomy, hysterectomy, benjamin, iddm, anxiety, depression, neuropathy, AFIB, HYPOTHYROID Surgeries: Yes ( X 2; BACK SURGERY 08/24/20 DUE TO TRAUMA) Abdominal, Appendectomy, Section, Coronary Stent, Gallbladder, Hysterectomy, Orthopedic, Tonsillectomy Respiratory: Yes (SLEEP APNEA--STATES SHE DOES NOT HAVE CPAP, PER PT 12/19/21) Sleep Apnea Currently Using CPAP: No Cardiac: Yes (A-FIB; CHF; STENTS X 2) Atrial Fibrillation, Coronary Artery Disease, High Cholesterol, Hypertension, Irregular Heartbeat, Valvular Heart Disease Neurological: Yes (PERIPHERAL NEUROPATHY DUE TO DIABETES) Neuropathy Reproductive Disorders: Yes Female Reproductive Disorders: Menstrual Problems BOTTOM MAN History: Hysterectomy, Menopausal Genitourinary: Yes (HAD ACUTE RENAL FAILURE/INSUFFICIENCY WHEN SHE FELL 08/20/20-NO DIALYSIS) Renal Failure Gastrointestinal: Yes (S/P APPY AND [place]) Musculoskeletal: Yes (FALL 08/20/20-T12 BURST FX & RIGHT WRIST FX;CLAVICLE FX;R HIP FX/ORIF;FALLS) Arthritis, Back Injury, Chronic Back Pain, Fractures Endocrine: Yes (TYPE 2 ) Diabetes, Insulin dep, Hypothyroidsim HEENT: No Cancer: No Psychosocial: Yes Anxiety, Bipolar, Depression Integumentary: No Blood Disorders: No (MADHU BOOKER) Family Medical History Cancer, Diabetes, Psychiatric Problems SOCIAL HISTORY: -SMOKES 1 PPD -ETOH--HISTORY OF ABUSE, CLAIMS NO ALCOHOL X 30 YEARS -DRUGS--DAILY/REGULAR THC USE PAST SURGICAL HISTORY: -APPENDECTOMY -CHOLECYSTECTOMY - X 2 -HYSTERECTOMY / BILATERAL SALPINGO-OOPHORECTOMY -BACK SURGERY WITH RODS 08/24/2020 DUE TO TRAUMA / FALL -RIGHT FEMUR FX/ORIF 03/03/[address] GUTIERREZ PT FELL ON 08/20/20, HAD T12 BURST FRACTURE AND RIGHT WRIST FRACTURE AND WAS TRANSFERRED TO [facility] ON 08/24/20, PT HAD T12-L1 LAMINECTOMY AND BILATERAL DECOMPRESSION, AND T10-T11, T11-T12, T12-L1, L1-L2 POSTERIOR LATERAL FUSION USING [employer] PEDICLE SCREWS AND LOCAL BONE GRAFT BY DR. STEINER. PT WITH MULTIPLE FALLS AND HAS HAD MULTIPLE FRACTURES IN THE LAST 2 YEARS, INCLUDING SPINE FRACTURES AND RIGHT HIP FRACTURE REQUIRING SURGERY. ADDITIONALLY SHE HAS HAD FRACTURES OF HER RIGHT CLAVICLE AND RIGHT WRIST FRACTURE WHICH DID NOT REQUIRE SURGERY. CARDIAC CATH 08/24/[address] NAIK: CONCLUSIONS: 1. Coronary artery disease primarily consisting of distal occlusion of a codominant left circumflex and a long, up to 99% stenosis in the first obtuse marginal that was successfully stented with overlapping Skypoint 3.0 x 32 mm and Skypoint 3.0 x 12 mm stents with reduction of restenosis to 0% residual and improvement of flow from ZAHIRA 2 to ZAHIRA 3. The first diagonal branch, left anterior descending artery is of a small caliber and has 60% proximal stenosis. The rest of the vessels have diffuse mild to moderate plaque. 2. Well preserved global left ventricular systolic function. 3. Localized posterobasal akinesis. 4. Left ventricular end-diastolic pressure 12 mmHg. STRESS TEST 07/19/[address] NAIK: -FINDINGS: Baseline images were carried out after injection of 10.75 mCi of technetium-99m tetrofosmin. This was followed by 0.4 mg regadenoson and 30.2 mCi of technetium-99m tetrofosmin for stress imaging. The electrocardiogram showed sinus rhythm at baseline. It did not change significantly with the regadenoson infusion. The patient tolerated the procedure well. Isolated premature ventricular contractions were seen during the study. The patient noted some shortness of breath following regadenoson infusion, which resolved in a few minutes. Review of images at rest and following stress indicate a relatively small basal inferolateral perfusion defect, which appears predominantly fixed. Gated images showed localized inferolateral hypokinesis. Left ventricular ejection fraction is calculated to be 51%. CONCLUSIONS: 1. This study is suggestive of basal inferolateral myocardial infarction with a small amount of krissy-infarct ischemia. 2. Localized, basal inferolateral hypokinesis. 3. Well preserved global left ventricular systolic function, left ventricular systolic function with an ejection fraction of 51%. (MADHU BOOKER) Physical Exam Vital Signs Vital Signs - First Documented 09/20/22 09/20/22 15:20 19:40 Temp 36.2 Pulse 85 Resp 16 B/P (MAP) 220/115 (150) Pulse Ox 98 O2 Delivery Room Air (NISHI BONE MD) Vital Signs Capillary Refill : (MADHU BOOKER) Height, Weight, BMI Height: 5'7.00" Weight: 165lbs. 0.0oz. [id number]; 20.98 BMI Method:Stated General Appearance: No Apparent Distress, WD/WN HEENT: PERRL/EOMI, TMs Normal, Normal ENT Inspection, Pharynx Normal Neck: Full Range of Motion, Normal Inspection, Non Tender, Supple Respiratory: Chest Non Tender, Lungs Clear, Normal Breath Sounds, No Accessory Muscle Use, No Respiratory Distress Cardiovascular: Regular Rate, Rhythm, No Edema, No Gallop, No JVD Gastrointestinal: Normal Bowel Sounds, No Organomegaly, No Pulsatile Mass, Soft, Tenderness (Neurolyse tenderness) Extremity: Normal Capillary Refill, Normal Inspection, Normal Range of Motion, Non Tender Neurologic/Psychiatric: Alert, Oriented x3, No Motor/Sensory Deficits, Normal Mood/Affect, duplicate maker II-XII Norm as Tested Skin: Normal Color, Warm/Dry (MADHU BOOKER) Progress/Results/Core Measures Results/Orders Lab Results Laboratory Tests Test 09/20/22 00:33 09/20/22 15:30 09/20/22 16:19 09/20/22 16:22 Range/Units Blood Gas Puncture Site RR Blood Gas Patient Temperature 37.2 Arterial Blood pH 7.43 7.37-7.43 Arterial Blood Partial Pressure CO2 38 35-45 MMHG Arterial Blood Partial Pressure O2 89 79-93 MMHG Arterial Blood HCO3 25 23-27 MMOL/L Arterial Blood Total CO2 25.7 21.0-31.0 MMOL/L Arterial Blood Oxygen Saturation 97 94-100 % Arterial Blood Base Excess 0.8 -2.5-2.5 MMOL/L Tuan Test YES-POS Blood Gas Ventilator Setting NO Blood Gas Inspired Oxygen RA White Blood Count 14.2 H 4.3-11.0 10^3/uL Red Blood Count 5.11 3.80-5.11 10^6/uL Hemoglobin 15.8 11.5-16.0 g/dL Hematocrit 45 35-52 % Mean Corpuscular Volume 88 80-99 fL Mean Corpuscular Hemoglobin 31 25-34 pg Mean Corpuscular Hemoglobin Concent 35 32-36 g/dL Red Cell Distribution Width 12.3 10.0-14.5 % Platelet Count 328 130-400 10^3/uL Mean Platelet Volume 11.7 9.0-12.2 fL Prothrombin Time 12.7 12.2-14.7 SEC INR Comment 0.9 0.8-1.4 Activated Partial Thromboplast Time 24 24-35 SEC Sodium Level 131 L 135-145 MMOL/L Potassium Level 4.3 3.6-5.0 MMOL/L Chloride Level 94 L 98-107 MMOL/L Carbon Dioxide Level 20 L 21-32 MMOL/L Anion Gap 17 H 5-14 MMOL/L Blood Urea Nitrogen 13 7-18 MG/DL Creatinine 0.85 0.60-1.30 MG/DL Estimat Glomerular Filtration Rate 78 BUN/Creatinine Ratio 15 Glucose Level 358 H 70-105 MG/DL Calcium Level 10.5 H 8.5-10.1 MG/DL Corrected Calcium 8.5-10.1 MG/DL Magnesium Level 1.5 L 1.6-2.4 MG/DL Total Bilirubin 1.2 H 0.1-1.0 MG/DL Aspartate Amino Transf (AST/SGOT) 29 5-34 U/L Alanine Aminotransferase (ALT/SGPT) 20 0-55 U/L Alkaline Phosphatase 119 40-136 U/L Troponin I < 0.028 <0.028 NG/ML Total Protein 8.6 H 6.4-8.2 GM/DL Albumin 4.7 H 3.2-4.5 GM/DL Beta-Hydroxybutyrate (Chem panel) 0.78 H 0.00-0.27 MMOL/L B-Type Natriuretic Peptide 177.5 H <100.0 PG/ML Urine Color YELLOW Urine Clarity CLEAR Urine pH 6.5 5-9 Urine Specific [place] 1.010 L 1.016-1.022 Urine Protein 2+ H NEGATIVE Urine Glucose (UA) 3+ H NEGATIVE Urine Ketones 1+ H NEGATIVE Urine Nitrite NEGATIVE NEGATIVE Urine Bilirubin NEGATIVE NEGATIVE Urine Urobilinogen 0.2 < = 1.0 MG/DL Urine Leukocyte Esterase NEGATIVE NEGATIVE Urine RBC (Auto) TRACE-I H NEGATIVE Urine RBC RARE /HPF Urine WBC NONE /HPF Urine Squamous Epithelial Cells RARE /HPF Urine Crystals NONE /LPF Urine Bacteria NEGATIVE /HPF Urine Casts NONE /LPF Urine Mucus NEGATIVE /LPF Urine Culture Indicated NO (NISHI BONE MD) My Orders Orders - NISHI BONE MD Cbc No Diff (09/20/22 15:30) Comprehensive Metabolic Panel (09/20/22 15:30) Magnesium (09/20/22 15:30) Troponin I [place] (09/20/22 15:30) Protime With Inr (09/20/22 15:30) Partial Thromboplastin Time (09/20/22 15:30) Ondansetron Injection (Zofran Injectio (09/20/22 15:48) Aspirin Chewable Tablet (Baby Aspirin Ch (09/20/22 15:48) Labetalol Injection (Normodyne Injection (09/20/22 15:48) Ct Abdomen/Pelvis W (09/20/22 ) Ct Head Wo (09/20/22 ) Chest 1 View, Ap/Pa Only (09/20/22 ) (NISHI BONE MD) Vital Signs/I&O 09/20/22 09/20/22 15:20 19:40 Temp 36.2 36.2 Pulse 85 87 Resp 16 16 B/P (MAP) 220/115 (150) 212/107 Pulse Ox 98 O2 Delivery Room Air (NISHI BONE MD) Departure Communication (PCP) Reviewed previous ER visits, H&P, lab testing. History of coronary artery disease with a stress test performed in June by Dr. naik that showed basal inferolateral myocardial infarction with a small amount of krissy-infarct ischemia. EF 51 Percent. Patient was admitted for 5 days for uncontrolled diabetes in July as well as uncontrolled hypertension. Currently on carvedilol, metoprolol and lisinopril. She states her blood sugar and blood pressure has been well controlled at home but due to the vomiting and diarrhea since Monday has not been able to take her medication. On arrival blood pressure 220/115. She was given 20 mg labetalol 10 mg of hydralazine without much improvement. Due to current complaint cardiac work-up, CT scan of the head due to headache and dizziness and blurry vision, chest x-ray and EKG. EKG showed sinus rhythm with occasional ventricular premature complexes. No ST elevation or depression. CBC showed white blood count 14.2. Chemistry showed hyponatremia at 131, hypochloremia 94, anion gap of 17. blood sugar 385. Normal kidney function. Slight elevated beta hydroxybutyrate 0.85. Ketones and blood sugar in her urine. Due to the elevated anion gap, lactic acid was ordered. Lactic acid pending. Could be related to dehydration versus mild DKA. She does not appear acidic but will add lactic acid. Patient was started on a liter of fluid. She Was given 10 units of insulin for the blood sugar 385. CT scan of the head negative for acute abnormality. Chest x-ray negative for p neumonia, pneumothorax, pleural effusion. No appreciation of lower leg swelling. Normal troponin. BNP of 177. History of CHF. CT abdomen pelvis negative for acute abnormality since patient's blood pressure has not been improving patient will be admitted for further work-up. Discussed patient with Dr. Winters hospitalist accepts patient. Started patient on a Cardene drip. (MADHU BOOKER) Impression Primary Impression: Hypertensive urgency Additional Impression: Hyperglycemia Disposition: ADMITTED INPATIENT Condition: Stable Admissions Decision to Admit Reason: Admit from ER (General) Decision to Admit/Date: September 20, 2022 Time/Decision to Admit Time: 18:52 (MADHU BOOKER) Departure-Patient Inst. Decision time for Depature: 18:52 (MADHU BOOKER) Referrals: CHAI NAVA APRN (PCP) Primary Care Physician [facility] (Family) Primary Care Physician Scripts Ondansetron (Ondansetron Odt) 4 Mg Tab.rapdis 4 MG SL Q4H PRN for NAUSEA/VOMITING, #10 TAB Prov: ASHLYN WINTERS DO 09/22/22 Clonidine HCl (Clonidine HCl) 0.1 Mg Tablet 0.1 MG PO Q4H PRN for BP>160, #30 TAB Prov: ASHLYN WINTERS DO 09/22/22 Amlodipine Besylate (Amlodipine Besylate) 5 Mg Tablet 5 MG PO DAILY, #30 TAB Prov: ASHLYN WINTERS DO 09/22/22 ATTENDING PHYSICIAN NOTE: I was physically present as attending physician in the emergency department during the care of this patient, but I was not directly involved in the decision making or delivery of care for this patient. (NISHI BONE MD) MADHU BOOKER September 20, 2022 16:31 NISHI BONE MD September 23, 2022 06:17
[2022-09-20] MEDS ORDERED: hydrALAZINE (APESOLINE) 20 MG/ML VIAL IV ONE (16:45)
[2022-09-20] MEDS ORDERED: ASPIRIN 81 MG CHEW (CHILDREN'S ASA) PO ONE (16:45)
[2022-09-20] MEDS ORDERED: LABETALOL HCL 20 MG/4 ML VIAL IV ONE ×2 (16:45→17:30)
[2022-09-20] MEDS ORDERED: ONDANSETRON 4 MG/2 ML (SDV) Z0FRAN IVP ONE (16:45)
[2022-09-20 16:49] LABS: BACTERIA,URINE NEGATIVE /HPF; RBC,URINE RARE /HPF; SQUAMOUS EPITHELIAL CELL,UR RARE /HPF
[2022-09-20] MEDS ORDERED: inSUlin (REGULAR) HUMAN 1 UNIT/0.01 ML (CHARGE PER UNIT) IV ONE (17:00)
[2022-09-20] MEDS ORDERED: morphine INJ 10 MG/ML 1ML (SYR OR VIAL) IVP ONE (18:00)
[2022-09-20] MEDS ORDERED: MILK OF MAGNESIA 400 MG/5 ML 30 ML UDC PO PRN (20:15)
[2022-09-20] MEDS ORDERED: ONDANSETRON 4 MG (ZOFRAN) ORAL DISSOLVE TAB PO PRN (20:15)
[2022-09-20] MEDS ORDERED: MELATONIN 3 MG TABLET PO PRN (20:15)
[2022-09-20] MEDS ORDERED: BISACODYL 10 MG SUPP (DULCOLAX) PR PRN (20:15)
[2022-09-20] MEDS ORDERED: inSUlin (REGULAR) HUMAN 1 UNIT/0.01 ML (CHARGE PER UNIT) SC PRN (20:15)
[2022-09-20] MEDS ORDERED: ANTACID SUSP 30 ML UDC (MYLANTA) PO PRN (20:15)
[2022-09-20] MEDS ORDERED: diphenhydrAMINE 50 MG/ML INJ (BENADRYL) IVP PRN (20:15)
[2022-09-20] MEDS ORDERED: polyethylene glycoL POWDER 17 GM (MIRALAX) PACK PO PRN (20:15)
[2022-09-20] MEDS ORDERED: NS IV 500 ML 500 ML IV PRN (20:15)
[2022-09-20] MEDS ORDERED: inSUlin (REGULAR) HUMAN 1 UNIT/0.01 ML (CHARGE PER UNIT) SC ONE (20:15)
[2022-09-20] MEDS ORDERED: ACETAMINOPHEN 325 MG TABLET PO PRN (20:15)
[2022-09-20] MEDS ORDERED: diphenhydrAMINE 25 MG TAB (BENADRYL) PO PRN (20:15)
[2022-09-20] MEDS ORDERED: HYDROmorphone 2 MG/ML VIAL (DILAUDID) IV PRN (20:15)
[2022-09-20] MEDS ORDERED: LACTULOSE SYRUP 10GM/15ML (ENULOSE) 30ML UDC PO PRN (20:15)
[2022-09-20] MEDS ORDERED: CALCIUM CARBONATE 500 MG (TUMS) TAB.CHEW PO PRN (20:15)
[2022-09-20] MEDS: DOCUSATE SODIUM 100 MG (COLACE) CAP PO SCH (20:36)
[2022-09-20] MEDS: SENNOSIDES 8.6 MG (SENOKOT) TAB PO SCH (20:36)
[2022-09-20] MEDS ORDERED: NS (IVPB) 250 ML ONE (20:41)
[2022-09-20] MEDS ORDERED: niCARdipine IV PYXIS DRIP KIT = 50 MG X 2 VIALS ONE (20:41)
[2022-09-20] MEDS ORDERED: RT-ALBUTEROL SULF 2.5 MG/3 ML PRE-MIX VIAL INH PRN (20:45)
[2022-09-20] MEDS: niCARdipine IV 50 MG in NS (IVPB) 230 ML IV SCH (20:50)
[2022-09-20] MEDS ORDERED: inSUlin (REGULAR) HUMAN 1 UNIT/0.01 ML (CHARGE PER UNIT) ONE (21:33)
--- NOTE | 2022-09-20 21:42 | Tele-ICU Progress Note ---
Progress Note 62F with HTN, DM2, CAD s/p PCI 08/24/21, CHF with last EF 51% admitted with hypertensive emergency. She presented with nausea, vomiting, abd pain, [place], blurred vision. She has had 3-4 days of vomiting and diarrhea. Has bilateral frontal headache. Took BP and found to be 220, which prompted presentation to ED. On arrival BP 220/115, which she states had been well controlled at home but has been unable to tolerate PO medication since Monday. Found to have aniong gap acidosis with gap 17, ketones 0.87. Glucose 385. A/P: - hypertensive emergency: On arrival to ICU was 205/134. On my evaluation <1 hr later had dropped to 109/65 on starting dose cardene 5 mg. It was stopped and BP rebounded to 170 pretty quickly. Continue low dose cardene for SBP goal 160-180. - metabolic acidosis: starvation ketosis vs DKA vs ?. Initial lactic was 17. Will get repeat BMP now, if acidosis still present will get ABG to eval for complex acid base disorder. Would have expected a non gap acidosis from diarrhea and vomiting. Gap is out of proportion to ketosis. Will send lactic. If persistant, consider insulin gtt. - vomiting/diarrhea: may have been a viral GE as the inciting event, prevent PO medication and leading to decomponsation of chronic conditions. At this point, evaluation limited secondary to concomitant HTN, hyperglycemia, dehydration. Will treat with cardene, volume resuscitation and insulin and then re-evaluate GI symtpoms - DM: insulin sliding scale for now, unless repeat labs indicate infusion. Patient assessed via real time audiovisual communication system. CCT 15 min Focused Exam Height, Weight, BMI Height: 5'7.00" Weight: 165lbs. 0.0oz. [id number]; 18.90 BMI Method:Stated ELLEN SPARROW MD September 20, 2022 21:42
[2022-09-20] MEDS ORDERED: LACTATED RINGERS 1,000 ML IV ONE (22:14)
[2022-09-20 22:20] LABS: CALCIUM 10.4 MG/DL (8.5-10.1); CREATININE SERUM 0.81 MG/DL (0.60-1.30); MAGNESIUM 1.5 MG/DL (1.6-2.4); POTASSIUM 3.3 MMOL/L (3.6-5.0)
[2022-09-20] MEDS: LACTATED RINGERS 1,000 ML IV SCH (22:26)
[2022-09-20] MEDS: POTASSIUM CL 10MEQ/50ML IVPB 50 ML IV SCH (23:31)
[2022-09-20] MEDS: MAGNESIUM 1 GM/100 ML IVPB 100 ML IV SCH (23:31)
[2022-09-21] MEDS: inSUlin ASPART (NovoLOG) 1 UNIT/0.01 ML (CHARGE PER UNIT) SC SCH ×5 (00:07→21:06)
[2022-09-21] MEDS: MAGNESIUM 1 GM/100 ML IVPB 100 ML IV SCH ×3 (00:12→02:27)
[2022-09-21] MEDS: POTASSIUM CL 10MEQ/50ML IVPB 50 ML IV SCH ×7 (00:12→06:25)
[2022-09-21 00:37] LABS: ABG BASE EXCESS 0.8 MMOL/L (-2.5-2.5); ABG OXYGEN SATURATION 97 % (94-100); ABG PCO2 38 MMHG (35-45); ABG PH 7.43 (7.37-7.43); ABG PO2 89 MMHG (79-93); ABG TCO2 25.7 MMOL/L (21.0-31.0)
[2022-09-21 00:45] LABS: ALLENS TEST YES-POS; INSPIRED O2 RA; PATIENT TEMP 37.2; VENTILATOR NO
[2022-09-21] MEDS ORDERED: NS IV 1000 ML 1,000 ML IV SCH (01:00)
[2022-09-21] MEDS ORDERED: PHENYLEPHRINE DRIP 250 ML IV ONE (02:22)
[2022-09-21] MEDS: ONDANSETRON 4 MG/2 ML (SDV) Z0FRAN IV PRN (02:45)
[2022-09-21] MEDS ORDERED: PHENYLEPHRINE DRIP 250 ML IV SCH (02:45)
[2022-09-21] MEDS: niCARdipine IV 50 MG in NS (IVPB) 230 ML IV SCH (05:19)
[2022-09-21] MEDS ORDERED: KCL 20 MEQ TAB (K-DUR) PO SCH (06:00)
[2022-09-21] MEDS ORDERED: MAGNESIUM 1 GM/100 ML IVPB 100 ML IV SCH (06:00)
[2022-09-21] MEDS ORDERED: POTASSIUM CL 10MEQ/50ML IVPB 50 ML IV SCH (06:00)
[2022-09-21] MEDS: LACTATED RINGERS 1,000 ML IV SCH (08:40)
[2022-09-21] MEDS ORDERED: ENOXAPARIN INJECTION 30 MG/0.3 ML SYR SC SCH (09:00)
[2022-09-21] MEDS: SENNOSIDES 8.6 MG (SENOKOT) TAB PO SCH ×2 (09:00→21:07)
[2022-09-21] MEDS: DOCUSATE SODIUM 100 MG (COLACE) CAP PO SCH ×2 (09:00→21:07)
[2022-09-21] MEDS ORDERED: lisINopril 40 MG (PRINIVIL) TABLET ONE (10:34)
[2022-09-21] MEDS ORDERED: meTOproloL SUCCINATE 50 MG (TOPROL XL) TAB PO ONE (10:38)
[2022-09-21] MEDS: lisINopril 40 MG (PRINIVIL) TABLET PO SCH (10:40)
[2022-09-21] MEDS: meTOproloL SUCCINATE 50 MG (TOPROL XL) TAB PO SCH (10:40)
[2022-09-21 11:37] LABS: ALBUMIN 4.1 GM/DL (3.2-4.5); CALCIUM 8.9 MG/DL (8.5-10.1); CREATININE SERUM 0.74 MG/DL (0.60-1.30); MAGNESIUM 2.7 MG/DL (1.6-2.4); PHOSPHORUS 2.4 MG/DL (2.3-4.7); POTASSIUM 4.5 MMOL/L (3.6-5.0); TOTAL PROTEIN 6.7 GM/DL (6.4-8.2)
[2022-09-21 11:37] LABS: BASOPHILS # (AUTO) 0.1 10^3/uL (0.0-0.1); BASOPHILS % (AUTO) 0 % (0-10); EOSINOPHILS % (AUTO) 0 % (0-10); HEMATOCRIT 41 % (35-52); HEMOGLOBIN 14.1 g/dL (11.5-16.0); LYMPHOCYTES # (AUTO) 3.4 10^3/uL (1.0-4.0); LYMPHOCYTES % (AUTO) 19 % (12-44); MEAN CORPUSCULAR HEMOGLOBIN 31 pg (25-34); MEAN CORPUSCULAR HGB CONC 35 g/dL (32-36); MEAN CORPUSCULAR VOLUME 89 fL (80-99); MEAN PLATELET VOLUME 11.3 fL (9.0-12.2); MONOCYTES # (AUTO) 1.6 10^3/uL (0.0-1.0); MONOCYTES % (AUTO) 9 % (0-12); NEUTROPHILS # (AUTO) 13.2 10^3/uL (1.8-7.8); NEUTROPHILS % (AUTO) 72 % (42-75); PLATELET COUNT 279 10^3/uL (130-400); WHITE BLOOD COUNT 18.4 10^3/uL (4.3-11.0)
[2022-09-21 11:38] LABS: BASOPHILS % (MANUAL) 2 %; LYMPHOCYTES % (MANUAL) 14 %; MONOCYTES % (MANUAL) 2 %; NEUTROPHILS % (MANUAL) 82 %; RBC MORPH NORMAL
[2022-09-21] MEDS ORDERED: METO50TA7 PO (11:58)
[2022-09-21 14:25] VITALS: BP 177/79
--- NOTE | 2022-09-21 14:27 | Physical Therapy Evaluation ---
PT Evaluation-General Medical Diagnosis Admission Date September 20, 2022 at 19:56 Medical Diagnosis: Nausea, vomiting, abdominal pain Onset Date: September 20, 2022 Therapy Diagnosis Therapy Diagnosis: Gait deficit strength deficit Height/Weight Height (Feet): 5 Height (Inches): 7.00 Weight (Pounds): 165 Weight (Ounces): 0.0 Precautions Precautions/Isolations: Fall Prevention, Standard Precautions Weight Bear Status Right Lower Extremity: Right Full Weight Bearing Left Lower Extremity: Left Full Weight Bearing Referral Physician: Dr. Degroot Reason for Referral: Evaluation/Treatment Medical History Pertinent Medical History: Atrial Fib, DM, Fractures, HTN, Neuropathy, Renal Insufficiency, Smoking Reviewed History: Yes Social History Home: Apartment Current Living Status: Alone Entry Into Home: Level Entry Prior Prior Level of Function SCALE: Activities may be completed with or without assistive devices. 7-Nbhonnozrt-yuqegtf completes the activity by him/herself with no assistance from a helper. 5-Set-up or Clean-up Assistance-helper sets up or cleans up; patient completes activity. [place] assists only prior to or following the activity. 4-Supervision or Touching Assistance-helper provides verbal cues and/or touching/steadying and/or contact guard assistance as patient completes activity. Assistance may be provided throughout the activity or intermittently. 3-Partial/Moderate Assistance-helper does LESS THAN HALF the effort. [place] lifts, holds or supports trunk or limbs, but provides less than half the effort. 2-Substantial/Maximal Assistance-helper does MORE THAN HALF the effort. [place] lifts or holds trunk or limbs and provides more than half the effort. 2-Atvnchoxq-rfbtou does ALL the effort. Patient does none of the effort to complete the activity. Or, the assistance of 2 or more helpers is required for the patient to complete the activity. If activity was not attempted, code reason: 7-Patient Refused. 9-Not Applicable-not attempted and the patient did not perform the activity before the current illness, exacerbation or injury. 10-Not Attempted due to Environmental Limitations-(lack of equipment, weather restraints, etc.). 88-Not Attempted due to Medical Conditions or Safety Concerns. Bed Mobility: 6 Transfers (B,C,W/C): 6 Gait: 6 Stairs: 6 Indoor Mobility (Ambulation): Independent Stairs: Independent Prior Devices Use: Walker PT Evaluation-Current Subjective Patient sitting up in bed upon PT arrival, agreeable to treatment. Reports pain in her abdomen at 6/10 currently. Reports the past few days she has been using a FWW at home due to weakness, however at baseline ambulates sans AD. ROM/Strength ROM Lower Extremities WFLs all planes BLEs Strength Lower Extremities 4+/5 BLEs all planes Sensory Vision: Functional Hearing: Functional Sensation Right Lower Extremit: Intact Transfers Roll Left to Right (QC): 4 Sit to Lying (QC): 4 Lying to Sitting/Side of Bed(Q: 4 Sit to Stand (QC): 4 Chair/Qse-kq-Rvips Xfer(QC): 4 Gait Does the Patient Walk?: Yes Mode of Locomotion: Walk Anticipated Mode of Locomotion: Walk Walk 10 feet (QC): 4 Walk 50 ft with 2 Turns(QC): 4 Walk 150 ft (QC): 4 Distance: 250 feet Balance Sitting Static: Normal Sitting Dynamic: Normal Standing Static: Good Standing Dynamic: Fair Assessment/Needs Patient tolerated treatment well. She performs all observed bed mobility and transfers with SBA. Patient ambulates 250 feet with FWW, with SBA and verbal cues for safety, progression, posture and conservation of energy. Patient in bed post treatment with all needs met, nursing notified, call light reach and [employer] in the room. Rehab Potential: Good PT Mcfp Goals Mcfp Goals PT Mcfp Goals Time Frame: October 19, 2022 Roll Left & Right (QC): 6 Sit to Lying (QC): 6 Lying-Sitting on Side/Bed(QC): 6 Sit to Stand (QC): 6 Chair/Jub-ce-Wlume Xfer(QC): 6 Toilet Transfer (QC): 6 Does the Patient Walk: Yes Walk 10 feet (QC): 6 Walk 50ft with 2 Turns (QC): 6 Walk 150 ft (QC): 6 1 Step (curb) (QC): 6 4 Steps (QC): 6 PT Plan Problem List Problem List: Activity Tolerance, Functional Strength, Safety, Balance, Gait, Transfer, Bed Mobility, ROM Treatment/Plan Treatment Plan: Continue Plan of Care Treatment Plan: Bed Mobility, Education, Functional Activity [place], Functional Strength, Group Therapy, Gait, Safety, Therapeutic Exercise, Transfers Treatment Duration: October 19, 2022 Frequency: 6 times per week Estimated Hrs Per Day: .25 hour per day Patient and/or Family Agrees t: Yes Safety Risks/Education Patient Education: Gait Training, Transfer Techniques Teaching Recipient: Patient Teaching Methods: Demonstration, Discussion Response to Teaching: Verbalize Understanding, Return Demonstration Time Time In: 1407 Time Out: 1418 DATE: September 21, 2022 Total Billed Treatment Time: 11 Total Billed Treatment Visit, MARTINA LARA PT September 21, 2022 14:27
[2022-09-21 16:00] VITALS: BP 173/83
[2022-09-21 20:22] VITALS: BP 159/79
[2022-09-22 00:13] VITALS: BP 107/55
[2022-09-22 04:00] VITALS: BP 171/75
[2022-09-22 05:48] LABS: BASOPHILS # (AUTO) 0.1 10^3/uL (0.0-0.1); BASOPHILS % (AUTO) 1 % (0-10); EOSINOPHILS # (AUTO) 0.1 10^3/uL (0.0-0.3); EOSINOPHILS % (AUTO) 1 % (0-10); HEMATOCRIT 39 % (35-52); HEMOGLOBIN 13.2 g/dL (11.5-16.0); LYMPHOCYTES % (AUTO) 32 % (12-44); MEAN CORPUSCULAR HEMOGLOBIN 31 pg (25-34); MEAN CORPUSCULAR HGB CONC 34 g/dL (32-36); MEAN CORPUSCULAR VOLUME 92 fL (80-99); MEAN PLATELET VOLUME 11.1 fL (9.0-12.2); MONOCYTES % (AUTO) 8 % (0-12); NEUTROPHILS # (AUTO) 7.2 10^3/uL (1.8-7.8); NEUTROPHILS % (AUTO) 58 % (42-75); PLATELET COUNT 243 10^3/uL (130-400); WHITE BLOOD COUNT 12.5 10^3/uL (4.3-11.0)
[2022-09-22] MEDS: ONDANSETRON 4 MG/2 ML (SDV) Z0FRAN IV PRN (05:54)
[2022-09-22 05:59] VITALS: BP 135/64
[2022-09-22 06:05] LABS: ALBUMIN 3.7 GM/DL (3.2-4.5)
[2022-09-22 06:06] LABS: CALCIUM 9.3 MG/DL (8.5-10.1)
[2022-09-22 06:07] LABS: TOTAL PROTEIN 6.1 GM/DL (6.4-8.2)
[2022-09-22 06:09] LABS: BILIRUBIN,TOTAL 1.2 MG/DL (0.1-1.0)
[2022-09-22 06:11] LABS: CREATININE SERUM 0.69 MG/DL (0.60-1.30)
[2022-09-22] MEDS: inSUlin ASPART (NovoLOG) 1 UNIT/0.01 ML (CHARGE PER UNIT) SC SCH ×2 (06:18→13:17)
[2022-09-22 07:41] VITALS: BP 197/77
[2022-09-22] MEDS: lisINopril 40 MG (PRINIVIL) TABLET PO SCH (08:10)
[2022-09-22] MEDS: meTOproloL SUCCINATE 50 MG (TOPROL XL) TAB PO SCH (08:10)
[2022-09-22] MEDS ORDERED: ENOXAPARIN 40 MG/0.4 ML (LOVENOX) SYR SC SCH (09:00)
[2022-09-22] MEDS: SENNOSIDES 8.6 MG (SENOKOT) TAB PO SCH (10:04)
[2022-09-22] MEDS: DOCUSATE SODIUM 100 MG (COLACE) CAP PO SCH (10:04)
--- NOTE | 2022-09-22 11:34 | Physical Therapy Progress Note ---
Therapy Progress Note Patient reports she is up independently in hallway. Declined PT on this date due to feeling ill. PT will attempt tomorrow. 1 ref ADRIEL MERCADO PT September 22, 2022 11:34
[2022-09-22 11:47] VITALS: BP 151/81
[2022-09-22] MEDS ORDERED: amLODIPine 5 MG (NORVASC) TAB PO NR (12:00)
[2022-09-22] MEDS ORDERED: ONDA4TAB11 SL (12:03)
[2022-09-22] MEDS ORDERED: AMLO-250 PO (12:03)
[2022-09-22] MEDS ORDERED: CLN.1T PO (12:03)
--- NOTE | 2022-09-22 12:03 | Discharge Summary ---
Discharge Summary Hospital Course Was the Problem List Reviewed?: Yes Problems/Dx: (1) Hypertensive urgency (2) Hyperglycemia Status: Acute (3) Dehydration Status: Acute Hospital Course Date of Admission: September 20, 2022 at 19:56 Admission Diagnosis : [facility] Date of [facility]: 09/22/22 Discharge Diagnosis: [ ] Hospital Course: Shannan Ruiz is a 62 yo F with a history of hypertension, type 2 diabetes, CHF who presented to ED on 09/20 with nausea, vomiting, abdominal pain, headache blurry vision. She was found to be in metabolic acidosis and hypertensive urgency with arrival blood pressure 220/115. In ED she was given 20 mg labeta lol 10 mg of hydralazine without much improvement. She recieved cardiac workup, CT head, CXR, CT abd and Pelvis all without abnormalities. Patient's blood pressure did not improve, she was started patient on a Cardene drip and admitted to ICU. Her HTN was reasonably controlled with IV cardene and her metabolic acidosis had resolved. Presenting n/v/abd pain were attributed to viral gastroenteritis without evidence of other abdnormalities. This prevented pt from taking PO BP medications leading to hypertensive urgency. GE was reasonably controlled with zofran and PO BP meds were resumed. Pt BP was reasonably controlled and pt was otherwise stable and moved to floor 09/21. She continued to recover and continues to be stable today and is ready for d/c with nausea medication to allow for PO BP control. TREMAYNE CLEMENTE Labs and Pending Lab Test: Laboratory Tests 09/21/22 15:21: Glucometer 109 09/21/22 20:22: Glucometer 194H 09/22/22 05:37: White Blood Count 12.5H, Red Blood Count 4.25, Hemoglobin 13.2, Hematocrit 39, Mean Corpuscular Volume 92, Mean Corpuscular Hemoglobin 31, Mean Corpuscular Hemoglobin Concent 34, Red Cell Distribution Width 12.8, Platelet Count 243, Mean Platelet Volume 11.1, Immature Granulocyte % (Auto) 0, Neutrophils (%) (Auto) 58, Lymphocytes (%) (Auto) 32, Monocytes (%) (Auto) 8, Eosinophils (%) (Auto) 1, Basophils (%) (Auto) 1, Neutrophils # (Auto) 7.2, Lymphocytes # (Auto) 4.0, Monocytes # (Auto) 1.0, Eosinophils # (Auto) 0.1, Basophils # (Auto) 0.1, Immature Granulocyte # (Auto) 0.0, Sodium Level 137, Potassium Level 4.0, Chloride Level 104, Carbon Dioxide Level 23, Anion Gap 10, Blood Urea Nitrogen 19H, Creatinine 0.69, Estimat Glomerular Filtration Rate 99, BUN/Creatinine Ratio 28, Glucose Level 70, Calcium Level 9.3, Corrected Calcium 9.5, Magnesium Level 2.0, Total Bilirubin 1.2H, Aspartate Amino Transf (AST/SGOT) 16, Alanine Aminotransferase (ALT/SGPT) 13, Alkaline Phosphatase 82, Total Protein 6.1L, Albumin 3.7 09/22/22 09:50: Glucometer 104 Microbiology 09/20/22 MRSA Screen - Preliminary, Resulted No growth Home Meds Active Reported Metoprolol Succinate 50 Mg Tab.er.24h 50 Mg PO DAILY Escitalopram Oxalate 20 Mg Tablet 20 Mg PO DAILY LAST FILLED 07-20-2022 #30/30 DAY SUPPLY Levothyroxine Sodium 200 Mcg Tablet 200 Mcg PO DAILY LAST FILLED 07-20-2022 #30/30 DAY SUPPLY Baclofen 5 Mg/5 Ml Solution 5-10 Mg PO BID PRN Aspirin EC (Aspirin) 81 Mg Tablet.dr 81 Mg PO BID Lisinopril 40 Mg Tablet 40 Mg PO HS Plavix (Clopidogrel Bisulfate) 75 Mg Tablet 75 Mg PO DAILY Atorvastatin Calcium 40 Mg Tablet 40 Mg PO HS LAST FILLED 02-20-2023 #90/90 DAY SUPPLY Tresiba Flextouch U-100 (Insulin Degludec) 100 Unit/Ml (3 Ml) Insuln.pen 45 Unit SQ DAILY LAST FILLED 12-27-2021 #10 PENS/120 DAY SUPPLY Zegerid 40 mg Capsule (Omeprazole/Sodium Bicarbonate) 40 Mg-1.1 Gram Capsule 1 Each PO BID LAST FILLED 07-28-2022 #60/30 DAY SUPPLY Assessment/Pt Instructions pcp 1 week Discharge Planning: <30 minutes discharge planning Discharge Instructions Discharge Diet: No Restrictions Discharge Physical Examination Vital Signs Vital Signs Date Time Temp Pulse Resp B/P (MAP) Pulse Ox O2 Delivery O2 Flow Rate FiO2 09/22/22 11:47 36.3 75 18 151/81 (104) 97 Room Air 09/20/22 20:33 21 General Appearance: No Apparent Distress, WD/WN Respiratory: Lungs Clear, Normal Breath Sounds Cardiovascular: Regular Rate, Rhythm Neurologic/Psychiatric: Alert, Oriented x3, No Motor/Sensory Deficits, Normal Mood/Affect Allergies: Coded Allergies: Penicillins (Verified Allergy, Unknown, 12/15/15) Discharge Summary Date of Admission September 20, 2022 at 19:56 Date of Discharge Discharge Date: September 22, 2022 ASHLYN WINTERS DO September 22, 2022 12:03
--- NOTE | 2022-09-22 12:09 | History & Physical-Hospitalist ---
History of Present Illness HPI/Chief Complaint Delayed noted given the fact EMR was down and accidentally missed the note CC: HTN Urgency HPI: This is a 62yoWF clinic patient of [facility] who presented to the ER with elevated sugar and BP requiring Cardene drip and IVF and ultimately required pressor therapy due to severe hypotension along with IVF but doing well now and will move to [facility]. Exam Limitations: no limitations Date Seen 09/21/22 Time Seen by a Provider: 09:00 Attending Physician Mary Ponce Aprn PCP Admitting Physician: Coco Winters DO Attending Physician: Coco Winters DO Referring Physician Date of Admission September 20, 2022 at 19:56 Home Medications & Allergies Home Medications Reviewed patient Home Medication Reconciliation performed by pharmacy medication reconciliations roving technician and/or nursing. Patients Allergies have been reviewed. Allergies Allergies Coded Allergies Penicillins (Verified Allergy, Unknown, 12/15/15) Past Pnxjrjc-Eyzzmi-Zhtxuv Hx Patient Social History Marrital Status: single Employed/Student: unemployed Tobacco Use?: Yes Tobacco type used: Cigarettes Smoking Status: Current Someday Smoker Smokeless Tobacco Frequency: Current Everyday User Use of E-Cig and/or Vaping dev: No Substance use?: Yes Substance type: Marijuana Substance frequency: Daily Alcohol Use?: No Pt feels they are or have been: No Immunizations Up To Date First/Initial COVID19 Vaccinat: DENIES Tetanus Booster (TDap): Unknown Hepatitis A: No Hepatitis B: No PED Vaccines UTD: Yes Seasonal Allergies Seasonal Allergies: No Current Status status: No status: No Advance Directives: No Communicates: Verbally Primary Language: [place] Preferred Spoken Language: [place] Is interpretation needed?: No Implanted or Applied Medical D: Orthopedic hardware Past Medical History Surgeries: Abdominal, Appendectomy, Section, Coronary Stent, Gallbladder, Hysterectomy, Orthopedic, Tonsillectomy Sleep Apnea Currently Using CPAP: No Atrial Fibrillation, Coronary Artery Disease, High Cholesterol, Hypertension, Irregular Heartbeat, Valvular Heart Disease Neuropathy INFORMATICS 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 History: Hysterectomy, Menopausal Renal Failure Arthritis, Back Injury, Chronic Back Pain, Fractures Diabetes, Insulin dep, Hypothyroidsim Anxiety, Bipolar, Depression Blood Disorders: No PMHx: DMII HTN Palpitations HLD CRI Scleroderma Raynaud's phenomenon Osteopenia Fibromyalgia CAD- stents x 2 Chronic diastolic heart failure SurgHx: Back surgery after burst fracture 2020 Cholecystectomy Hysterectomy, bilateral salpingoophorectomy Family Medical History Cancer, Diabetes, Psychiatric Problems SOCIAL HISTORY: -SMOKES 1 PPD -ETOH--HISTORY OF ABUSE, CLAIMS NO ALCOHOL X 30 YEARS -DRUGS--DAILY/REGULAR THC USE PAST SURGICAL HISTORY: -APPENDECTOMY -CHOLECYSTECTOMY - X 2 -HYSTERECTOMY / BILATERAL SALPINGO-OOPHORECTOMY -BACK SURGERY WITH RODS 08/24/2020 DUE TO TRAUMA / FALL -RIGHT FEMUR FX/ORIF 03/03/[address] GUTIERREZ PT FELL ON 08/20/20, HAD T12 BURST FRACTURE AND RIGHT WRIST FRACTURE AND WAS TRANSFERRED TO [facility] ON 08/24/20, PT HAD T12-L1 LAMINECTOMY AND BILATERAL DECOMPRESSION, AND T10-T11, T11-T12, T12-L1, L1-L2 POSTERIOR LATERAL FUSION USING [employer] PEDICLE SCREWS AND LOCAL BONE GRAFT BY DR. STEINER. PT WITH MULTIPLE FALLS AND HAS HAD MULTIPLE FRACTURES IN THE LAST 2 YEARS, INCLUDING SPINE FRACTURES AND RIGHT HIP FRACTURE REQUIRING SURGERY. ADDITIONALLY SHE HAS HAD FRACTURES OF HER RIGHT CLAVICLE AND RIGHT WRIST FRACTURE WHICH DID NOT REQUIRE SURGERY. CARDIAC CATH 08/24/[address] NAIK: CONCLUSIONS: 1. Coronary artery disease primarily consisting of distal occlusion of a codominant left circumflex and a long, up to 99% stenosis in the first obtuse marginal that was successfully stented with overlapping Skypoint 3.0 x 32 mm and Skypoint 3.0 x 12 mm stents with reduction of restenosis to 0% residual and improvement of flow from ZAHIRA 2 to ZAHIRA 3. The first diagonal branch, left anterior descending artery is of a small caliber and has 60% proximal stenosis. The rest of the vessels have diffuse mild to moderate plaque. 2. Well preserved global left ventricular systolic function. 3. Localized posterobasal akinesis. 4. Left ventricular end-diastolic pressure 12 mmHg. STRESS TEST 07/19/[address] NAIK: -FINDINGS: Baseline images were carried out after injection of 10.75 mCi of technetium-99m tetrofosmin. This was followed by 0.4 mg regadenoson and 30.2 mCi of technetium-99m tetrofosmin for stress imaging. The electrocardiogram showed sinus rhythm at baseline. It did not change significantly with the regadenoson infusion. The patient tolerated the procedure well. Isolated premature ventricular contractions were seen during the study. The patient noted some shortness of breath following regadenoson infusion, which resolved in a few minutes. Review of images at rest and following stress indicate a relatively small basal inferolateral perfusion defect, which appears predominantly fixed. Gated images showed localized inferolateral hypokinesis. Left ventricular ejection fraction is calculated to be 51%. CONCLUSIONS: 1. This study is suggestive of basal inferolateral myocardial infarction with a small amount of krissy-infarct ischemia. 2. Localized, basal inferolateral hypokinesis. 3. Well preserved global left ventricular systolic function, left ventricular systolic function with an ejection fraction of 51%. Review of Systems Constitutional: see HPI, malaise, weakness Gastrointestinal: nausea, vomiting Physical Exam Physical Exam Vital Signs Vital Signs - First Documented 09/20/22 09/20/22 09/20/22 15:20 19:40 20:33 Temp 36.2 Pulse 85 Resp 16 B/P (MAP) 220/115 (150) Pulse Ox 98 O2 Delivery Room Air FiO2 21 Capillary Refill : Less Than 3 Seconds Height, Weight, BMI Height: 5'7.00" Weight: 165lbs. 0.0oz. [id number]; 20.42 BMI Method:Stated General Appearance: No Apparent Distress, Chronically ill, Thin Eyes: Right Eye Normal Inspection, Right Eye PERRL HEENT: PERRL/EOMI, Normal ENT Inspection, Pharynx Normal, Moist Mucous Membranes Neck: Full Range of Motion, Normal Inspection, Non Tender Respiratory: Chest Non Tender, Lungs Clear, Normal Breath Sounds, No Accessory Muscle Use, No Respiratory Distress Cardiovascular: Regular Rate, Rhythm, No Edema, No Gallop, No JVD, No Murmur, Normal Peripheral Pulses Gastrointestinal: Normal Bowel Sounds, No Organomegaly, No Pulsatile Mass, Non Tender, Soft Back: Normal Inspection, No CVA Tenderness, No Vertebral Tenderness Extremity: Normal Capillary Refill, Normal Inspection, Normal Range of Motion, Non Tender, No Calf Tenderness, No Pedal Edema Neurologic/Psychiatric: Alert, Oriented x3, No Motor/Sensory Deficits, Normal Mood/Affect Skin: Normal Color, Warm/Dry Lymphatic: No Adenopathy Results Results/Procedures Labs Laboratory Tests 09/20/22 15:30 09/20/22 21:47 09/21/22 05:00 09/21/22 07:50 09/22/22 05:37 Patient resulted labs reviewed. Assessment/Plan Admission Diagnosis Assessment: HTN urgency N/V DM Anxiety Depression Plan: Move to 4th Monitor BP Admission Status: Inpatient Order (span 2 midnights) Reason for Inpatient Admission: htn urgency COCO WINTERS DO September 22, 2022 12:09
[2022-09-22 12:17] VITALS: BP 180/71
--- NOTE | 2022-09-22 13:04 | Progress Note ---
TREMAYNE CLEMENTE 09/22/22 1304: Progress Note Shannan Ruiz is a 62 yo F with a history of hypertension, type 2 diabetes, CHF who presented to ED on 09/20 with nausea, vomiting, abdominal pain, headache blurry vision. She was found to be in metabolic acidosis and hypertensive urgency with arrival blood pressure 220/115. In ED she was given 20 mg labetal ol 10 mg of hydralazine without much improvement. She recieved cardiac workup, CT head, CXR, CT abd and Pelvis all without abnormalities. Patient's blood pressure did not improve, she was started patient on a Cardene drip and admitted to ICU. Her HTN was reasonably controlled with IV cardene and her metabolic acidosis had resolved. Presenting n/v/abd pain were attributed to viral g astroenteritis without evidence of other abdnormalities. This prevented pt from taking PO BP medications leading to hypertensive urgency. GE was reasonably controlled with zofran and PO BP meds were resumed. Pt BP was reasonably controlled and pt was otherwise stable and moved to floor 09/21. She continued to recover and continues to be stable today and is ready for d/c with nausea m edication to allow for PO BP control. COCO WINTERS DO 09/23/22 0525: Supervisory-Addendum Brief Verification & Attestation Participated in pt care: history, MDM, physical Personally performed: exam, history, MDM, supervision of care Care discussed with: Medical Student Procedures: n/a Results interpretation: Verified all documentation Verification and Attestation of Medical Student E/M Service A medical student performed and documented this service in my presence. I reviewed and verified all information documented by the medical student and made modifications to such information, when appropriate. I personally performed the physical exam and medical decision making. Coco Winters September 23, 2022,05:25 TREMAYNE CLEMENTE September 22, 2022 13:04 COCO WINTERS DO September 23, 2022 05:25
[2022-09-23] MEDS ORDERED: amLODIPine 5 MG (NORVASC) TAB PO SCH (09:00)
== END 2022-09-22 14:20 | disposition home or self-care (01) | DRG 305 ==
LOC: EDUNIT# 15:20 → ER 15:21 → ICU 19:56 → 4TH 09-21 13:59
PROVIDERS: ADMIT Internal Medicine; ATTEND Internal Medicine
DX: I16.1 Hypertensive emergency (principal); E87.20 Acidosis, unspecified; I50.32 Chronic diastolic (congestive) heart failure; I13.0 Hypertensive heart and chronic kidney disease with heart failure and stage 1 through stage 4 chronic kidney disease, or unspecified chronic kidney disease; F17.210 Nicotine dependence, cigarettes, uncomplicated; F12.90 Cannabis use, unspecified, uncomplicated; F41.9 Anxiety disorder, unspecified; I48.91 Unspecified atrial fibrillation; I25.10 Atherosclerotic heart disease of native coronary artery without angina pectoris; E78.00 Pure hypercholesterolemia, unspecified; M19.90 Unspecified osteoarthritis, unspecified site; E03.9 Hypothyroidism, unspecified; F31.9 Bipolar disorder, unspecified; Z95.5 Presence of coronary angioplasty implant and graft; M79.7 Fibromyalgia; I73.00 Raynaud's syndrome without gangrene; M34.9 Systemic sclerosis, unspecified; N18.9 Chronic kidney disease, unspecified; E11.22 Type 2 diabetes mellitus with diabetic chronic kidney disease; Z79.82 Long term (current) use of aspirin; Z79.4 Long term (current) use of insulin; Z79.899 Other long term (current) drug therapy; G47.33 Obstructive sleep apnea (adult) (pediatric); E11.40 Type 2 diabetes mellitus with diabetic neuropathy, unspecified; E11.65 Type 2 diabetes mellitus with hyperglycemia; E86.0 Dehydration; A08.4 Viral intestinal infection, unspecified; I95.9 Hypotension, unspecified
CPT/HCPCS: 36415; 36600; 70450; 71045; 74177; 80048; 80053; 81000; 82010; 82805; 82947; 83605; 83735; 83880; 84100; 84484; 85007; 85025; 85027; 85610; 85730; 87081; 93005

== ENCOUNTER 2022-10-06 15:38 | Observation (INO) | payer MEDICARE ==
[~2022-10-06] VITALS: Ht 170 cm; Wt 55.7 kg
[~2022-10-06 15:38] MED LIST changes: +LIDO15SO3 MM; -LIDO15SO6 MM; +METO50TA7 PO
--- NOTE | 2022-10-06 15:51 | ED General ---
General Chief Complaint: Dizziness/Syncope Stated Complaint: LOW BLOOD PRESSURE Nursing Triage Note: ARRIVED VIA POV FROM [facility] WITH LOW BP, DIZZINESS, FELL X4 YESTERDAY HITTING HER HEAD AND BACK. PT THINKS SHE BROKE SOME RIBS ON THE LEFT SIDE WITH HER FALL. PT TAKES PLAVIX. +LOC. Source of Information: Patient Exam Limitations: No Limitations History of Present Illness Date Seen by Provider: October 06, 2022 Time Seen by Provider: 15:40 Initial Comments Patient is a 62-year-old female who presents to the emergency room with a chief complaint of feeling dizzy, lightheaded some midthoracic back pain. She was sent from [facility] walk-in after being found to be hypotensive in 70s over 50s blood pressure. Patient states that she fell 4 times yesterday. She did hit her head and back. She had thoracic back surgery approximately 2 years ago. She is concerned about some left-sided rib pain. She is not short of breath. She is not nauseous currently. She has had some nausea and vomiting from last Monday to Monday but that spontaneously resolved. She has had continued diarrhea. She is trying to drink fluids and eating a drop soup to stay hydrated. She denies fevers or chills. No severe headache. No problems with balance or coordination. She has a history of multiple falls over the course of her lifetime. Neurologically normal at this time. Timing/Duration: 2-3 Days Severity: Moderate Associated Systoms: Malaise, Weakness, Other (Dizzy) Allergies and Home Medications Allergies Coded Allergies: Penicillins (Verified Allergy, Unknown, 12/15/15) Patient Home Medication List Home Medication List Reviewed: Yes Amlodipine Besylate (Amlodipine Besylate) 5 Mg Tablet, 5 MG PO DAILY Prescribed by: ASHLYN WINTERS on 09/22/22 1203 Aspirin (Aspirin EC) 81 Mg Tablet.dr, 81 MG PO BID, (Reported) Entered as Reported by: JENNIFER BOOTHE on 08/04/22 1333 Atorvastatin Calcium (Atorvastatin Calcium) 40 Mg Tablet, 40 MG PO HS, (Reported) Entered as Reported by: JENNIFER BOOTHE on 12/21/21 0915 Baclofen (Baclofen) 5 Mg/5 Ml Solution, 5-10 MG PO BID PRN for MUSCLE CRAMPS, (Reported) Entered as Reported by: JENNIFER BOOTHE on 08/04/22 1333 Clonidine HCl (Clonidine HCl) 0.1 Mg Tablet, 0.1 MG PO Q4H PRN for BP>160 Prescribed by: ASHLYN WINTERS on 09/22/22 1203 Clopidogrel Bisulfate (Plavix) 75 Mg Tablet, 75 MG PO DAILY, (Reported) Entered as Reported by: JENNIFER BOOTHE on 08/04/22 1333 Escitalopram Oxalate (Escitalopram Oxalate) 20 Mg Tablet, 20 MG PO DAILY, (Reported) Entered as Reported by: JENNIFER BOOTHE on 08/04/22 1333 Insulin Degludec (Tresiba Flextouch U-100) 100 Unit/Ml (3 Ml) Insuln.pen, 45 UNIT SQ DAILY, (Reported) Entered as Reported by: PRADEEP VICTOR on 08/24/21 0942 Levothyroxine Sodium (Levothyroxine Sodium) 200 Mcg Tablet, 200 MCG PO DAILY, (Reported) Entered as Reported by: JENNIFER BOOTHE on 08/04/22 1333 Lisinopril (Lisinopril) 40 Mg Tablet, 40 MG PO HS, (Reported) Entered as Reported by: JENNIFER BOOTHE on 08/04/22 1333 Metoprolol Succinate (Metoprolol Succinate) 50 Mg Tab.er.24h, 50 MG PO DAILY, (Reported) Entered as Reported by: JENNIFER BOOTHE on 09/21/22 1158 Omeprazole/Sodium Bicarbonate (Zegerid 40 mg Capsule) 40 Mg-1.1 Gram Capsule, 1 EACH PO BID, (Reported) Entered as Reported by: PRADEEP VICTOR on 08/24/21 0942 Ondansetron (Ondansetron Odt) 4 Mg Tab.rapdis, 4 MG SL Q4H PRN for NAUSEA/VOMITING Prescribed by: ASHLYN WINTERS on 09/22/22 1203 Review of Systems Review of Systems Constitutional: see HPI EENTM: no symptoms reported Respiratory: no symptoms reported Cardiovascular: no symptoms reported Gastrointestinal: diarrhea Genitourinary: decreased output Musculoskeletal: back pain, other (Left-sided rib pain) Skin: no symptoms reported Psychiatric/Neurological: No Symptoms Reported All Other Systems Reviewed Negative Unless Noted: Yes Past Lelndfc-Ocqdie-Ndtwze Hx Patient Social History Tobacco Use?: Yes Tobacco type used: Cigarettes Substance use?: Yes Substance type: Marijuana Alcohol Use?: No Immunizations Up To Date Tetanus Booster (TDap): Unknown PED Vaccines UTD: Yes First/Initial COVID19 Vaccinat: DENIES Seasonal Allergies Seasonal Allergies: No Past Medical History Surgery/Hospitalization HX: c-sect x2, back, cholecystectomy, hysterectomy, benjamin, iddm, anxiety, depression, neuropathy, AFIB, HYPOTHYROID Surgeries: Yes ( X 2; BACK SURGERY 08/24/20 DUE TO TRAUMA) Abdominal, Appendectomy, Section, Coronary Stent, Gallbladder, Hysterectomy, Orthopedic, Tonsillectomy Respiratory: Yes (SLEEP APNEA--STATES SHE DOES NOT HAVE CPAP, PER PT 12/19/21) Sleep Apnea Currently Using CPAP: No Cardiac: Yes (A-FIB; CHF; STENTS X 2) Atrial Fibrillation, Coronary Artery Disease, High Cholesterol, Hypertension, Irregular Heartbeat, Valvular Heart Disease Neurological: Yes (PERIPHERAL NEUROPATHY DUE TO DIABETES) Neuropathy Reproductive Disorders: Yes Female Reproductive Disorders: Menstrual Problems 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 History: Hysterectomy, Menopausal Genitourinary: Yes (HAD ACUTE RENAL FAILURE/INSUFFICIENCY WHEN SHE FELL 0 08/20/20-NO DIALYSIS) Renal Failure Gastrointestinal: Yes (S/P APPY AND [place]) Musculoskeletal: Yes (FALL 08/20/20-T12 BURST FX & RIGHT WRIST FX;CLAVICLE FX;R HIP FX/ORIF;FALLS) Arthritis, Back Injury, Chronic Back Pain, Fractures Endocrine: Yes (TYPE 2 ) Diabetes, Insulin dep, Hypothyroidsim HEENT: No Cancer: No Psychosocial: Yes Anxiety, Bipolar, Depression Integumentary: No Blood Disorders: No Family Medical History Cancer, Diabetes, Psychiatric Problems SOCIAL HISTORY: -SMOKES 1 PPD -ETOH--HISTORY OF ABUSE, CLAIMS NO ALCOHOL X 30 YEARS -DRUGS--DAILY/REGULAR THC USE PAST SURGICAL HISTORY: -APPENDECTOMY -CHOLECYSTECTOMY - X 2 -HYSTERECTOMY / BILATERAL SALPINGO-OOPHORECTOMY -BACK SURGERY WITH RODS 08/24/2020 DUE TO TRAUMA / FALL -RIGHT FEMUR FX/ORIF 03/03/[address] GUTIERREZ PT FELL ON 08/20/20, HAD T12 BURST FRACTURE AND RIGHT WRIST FRACTURE AND WAS TRANSFERRED TO [facility] ON 08/24/20, PT HAD T12-L1 LAMINECTOMY AND BILATERAL DECOMPRESSION, AND T10-T11, T11-T12, T12-L1, L1-L2 POSTERIOR LATERAL FUSION USING [employer] PEDICLE SCREWS AND LOCAL BONE GRAFT BY DR. STEINER. PT WITH MULTIPLE FALLS AND HAS HAD MULTIPLE FRACTURES IN THE LAST 2 YEARS, INCLUDING SPINE FRACTURES AND RIGHT HIP FRACTURE REQUIRING SURGERY. ADDITIONALLY SHE HAS HAD FRACTURES OF HER RIGHT CLAVICLE AND RIGHT WRIST FRACTURE WHICH DID NOT REQUIRE SURGERY. CARDIAC CATH 08/24/[address] NAIK: CONCLUSIONS: 1. Coronary artery disease primarily consisting of distal occlusion of a codominant left circumflex and a long, up to 99% stenosis in the first obtuse marginal that was successfully stented with overlapping Skypoint 3.0 x 32 mm and Skypoint 3.0 x 12 mm stents with reduction of restenosis to 0% residual and improvement of flow from ZAHIRA 2 to ZAHIRA 3. The first diagonal branch, left anterior descending artery is of a small caliber and has 60% proximal stenosis. The rest of the vessels have diffuse mild to moderate plaque. 2. Well preserved global left ventricular systolic function. 3. Localized posterobasal akinesis. 4. Left ventricular end-diastolic pressure 12 mmHg. STRESS TEST 07/19/[address] NAIK: -FINDINGS: Baseline images were carried out after injection of 10.75 mCi of technetium-99m tetrofosmin. This was followed by 0.4 mg regadenoson and 30.2 mCi of technetium-99m tetrofosmin for stress imaging. The electrocardiogram showed sinus rhythm at baseline. It did not change significantly with the regadenoson infusion. The patient tolerated the procedure well. Isolated premature ventricular contractions were seen during the study. The patient noted some shortness of breath following regadenoson infusion, which resolved in a few minutes. Review of images at rest and following stress indicate a relatively small basal inferolateral perfusion defect, which appears predominantly fixed. Gated images showed localized inferolateral hypokinesis. Left ventricular ejection fraction is calculated to be 51%. CONCLUSIONS: 1. This study is suggestive of basal inferolateral myocardial infarction with a small amount of krissy-infarct ischemia. 2. Localized, basal inferolateral hypokinesis. 3. Well preserved global left ventricular systolic function, left ventricular systolic function with an ejection fraction of 51%. Physical Exam Vital Signs Vital Signs - First Documented 10/06/22 15:41 Temp 35.6 Pulse 72 Resp 16 B/P (MAP) 99/67 (78) Pulse Ox 97 O2 Delivery Room Air Capillary Refill : Less Than 3 Seconds Height, Weight, BMI Height: 5'7.00" Weight: 165lbs. 0.0oz. [id number]; 19.00 BMI Method:Stated General Appearance: No Apparent Distress, Thin Eyes: Bilateral Eye Normal Inspection, Bilateral Eye PERRL, Bilateral Eye EOMI HEENT: PERRL/EOMI, Normal ENT Inspection, Pharynx Normal, Moist Mucous Membranes Neck: Normal Inspection, Non Tender Respiratory: Lungs Clear, Normal Breath Sounds, No Accessory Muscle Use, No Respiratory Distress, Other (Tenderness to left lower posterior ribs, no crepitance.) Cardiovascular: Regular Rate, Rhythm, Normal Peripheral Pulses Gastrointestinal: Normal Bowel Sounds (Slightly hyperactive), Non Tender, Soft Back: Normal Inspection, Other (Mild tenderness over the midline thoracic surgical scar, no erythema or skin wounds) Extremity: Normal Capillary Refill, Normal Inspection, Normal Range of Motion, Non Tender, No Calf Tenderness, No Pedal Edema Neurologic/Psychiatric: Alert, Oriented x3, No Motor/Sensory Deficits, Normal Mood/Affect, credit risk modeler II-XII Norm as Tested Skin: Normal Color, Warm/Dry Progress/Results/Core Measures Suspected Sepsis SIRS Temperature: Pulse: 72 Respiratory Rate: 16 Laboratory Tests 10/06/22 16:00: White Blood Count 14.4H Blood Pressure 99 /67 Mean: 78 Laboratory Tests 10/06/22 16:00: Creatinine 1.95H, Platelet Count 430H, Total Bilirubin 1.1H Results/Orders Lab Results Laboratory Tests Test 10/06/22 16:00 10/06/22 16:02 Range/Units White Blood Count 14.4 H 4.3-11.0 10^3/uL Red Blood Count 4.54 3.80-5.11 10^6/uL Hemoglobin 14.0 11.5-16.0 g/dL Hematocrit 41 35-52 % Mean Corpuscular Volume 91 80-99 fL Mean Corpuscular Hemoglobin 31 25-34 pg Mean Corpuscular Hemoglobin Concent 34 32-36 g/dL Red Cell Distribution Width 12.7 10.0-14.5 % Platelet Count 430 H 130-400 10^3/uL Mean Platelet Volume 10.1 9.0-12.2 fL Immature Granulocyte % (Auto) 0 % Neutrophils (%) (Auto) 69 42-75 % Lymphocytes (%) (Auto) 22 12-44 % Monocytes (%) (Auto) 7 0-12 % Eosinophils (%) (Auto) 1 0-10 % Basophils (%) (Auto) 0 0-10 % Neutrophils # (Auto) 10.0 H 1.8-7.8 X 10^3 Lymphocytes # (Auto) 3.2 1.0-4.0 X 10^3 Monocytes # (Auto) 1.0 0.0-1.0 X 10^3 Eosinophils # (Auto) 0.1 0.0-0.3 10^3/uL Basophils # (Auto) 0.1 0.0-0.1 10^3/uL Immature Granulocyte # (Auto) 0.1 0.0-0.1 10^3/uL Neutrophils % (Manual) 70 % Lymphocytes % (Manual) 16 % Monocytes % (Manual) 6 % Eosinophils % (Manual) 2 % Basophils % (Manual) 1 % Reactive Lymphocytes 5 % Smudge Cells SLIGHT Sodium Level 131 L 135-145 MMOL/L Potassium Level 3.4 L 3.6-5.0 MMOL/L Chloride Level 95 L 98-107 MMOL/L Carbon Dioxide Level 23 21-32 MMOL/L Anion Gap 13 5-14 MMOL/L Blood Urea Nitrogen 57 H 7-18 MG/DL Creatinine 1.95 H 0.60-1.30 MG/DL Estimat Glomerular Filtration Rate 29 BUN/Creatinine Ratio 29 Glucose Level 328 H 70-105 MG/DL Calcium Level 10.2 H 8.5-10.1 MG/DL Corrected Calcium 9.9 8.5-10.1 MG/DL Total Bilirubin 1.1 H 0.1-1.0 MG/DL Aspartate Amino Transf (AST/SGOT) 12 5-34 U/L Alanine Aminotransferase (ALT/SGPT) 18 0-55 U/L Alkaline Phosphatase 88 40-136 U/L Total Protein 7.0 6.4-8.2 GM/DL Albumin 4.4 3.2-4.5 GM/DL Urine Color YELLOW Urine Clarity SL CLOUDY Urine pH 5.5 5-9 Urine Specific [place] 1.020 1.016-1.022 Urine Protein NEGATIVE NEGATIVE Urine Glucose (UA) 1+ H NEGATIVE Urine Ketones NEGATIVE NEGATIVE Urine Nitrite NEGATIVE NEGATIVE Urine Bilirubin NEGATIVE NEGATIVE Urine Urobilinogen 0.2 < = 1.0 MG/DL Urine Leukocyte Esterase NEGATIVE NEGATIVE Urine RBC (Auto) NEGATIVE NEGATIVE Urine RBC NONE /HPF Urine WBC 0-2 /HPF Urine Squamous Epithelial Cells 5-10 /HPF Urine Crystals NONE /LPF Urine Bacteria FEW H /HPF Urine Casts PRESENT /LPF Urine Hyaline Casts 10-25 H /LPF Urine Mucus NEGATIVE /LPF Urine Culture Indicated YES My Orders Orders - CAROLINE CABAN MD Ed Iv/Invasive Line Start (10/06/22 15:50) Cbc With Automated Diff (10/06/22 15:50) Comprehensive Metabolic Panel (10/06/22 15:50) Ua Culture If Indicated (10/06/22 15:50) Ns Iv 1000 Ml (Sodium Chloride 0.9%) (10/06/22 16:00) Hydrocodone/Apap 5/325 Tablet (Lortab 5 (10/06/22 16:30) Manual Differential (10/06/22 16:00) Urine Culture (10/06/22 16:02) Orthostatic Vital Signs (Adult (10/06/22 17:12) Ed Admission (Communication) (10/06/22 17:52) Medications Given in ED Current Medications Medications Dose Ordered Sig/Doug Route Start Time Stop Time Status Last Admin Dose Admin Acetaminophen/ Hydrocodone Bitart 1 ea ONCE ONCE PO 10/06/22 16:30 10/06/22 16:31 DC 10/06/22 16:26 1 EA Vital Signs/I&O 10/06/22 10/06/22 15:41 17:20 Temp 35.6 Pulse 72 61 66 65 Resp 16 B/P (MAP) 99/67 (78) 145/78 (100) 142/78 (99) 129/70 (89) Pulse Ox 97 O2 Delivery Room Air Capillary Refill : Less Than 3 Seconds Blood Pressure Mean: 78 Progress Note : Progress Note Patient seen and evaluated by me. Evaluation today includes physical exam, CBC, basic metabolic panel, urinalysis. Pertinent physical exam findings thin well- developed well-nourished female in no acute distress. Triage blood pressure 100 systolic. She is not tachycardic. She is awake, alert with no focal deficits. Cranial nerves are intact. No motor or sensory loss. No cerebellar findings on physical exam. Heart is regular, lungs are clear abdomen is soft. She has a large vertical midline scar down the back that is mildly tender to palpation, no erythema or swelling is appreciated. She is neurologically intact to the lower extremities. She is not incontinent. Differential diagnosis based on history and physical exam, dehydration, metabolic derangement, urinary tract infection, gastroenteritis. Labs reviewed by me, patient has a CBC with a white count of 14.4 hemoglobin of 14 hematocrit of 41 platelet count of 430. Basic metabolic panel shows a sodium of 131, potassium of 3.4, chloride of 95, CO2 of 23, BUN of 57 creatinine of 1.95 and serum glucose of 328. Urine is grossly normal with few bacteria specific gravity of 1.0201+ glucose no significant white cells, nitrite negative. Patient is treated in the emergency department with IV fluids for fluid resuscitation, 2 L. Orthostatics were checked after fluid resuscitation and her blood pressure is back up to its normal baseline around 140 systolic. Secondary to her hypotension as reported earlier by [facility] and acute kidney injury with a creatinine of 1.95 decision was made to discussed with Dr. Winters, the hospitalist on for [facility] who accepts the patient for observation admission to the medical floor. She will continue fluids and to have labs rechecked in the morning anticipate discharge tomorrow. She is mildly hyperglycemic with a sugar of 328. This will be addressed during the observation stay. The patient states she does take insulin. No concerning findings for DKA. No concerning findings for bacterial infection. Departure Communication (Admissions) Time/Spoke to Admitting Phy: 17:[address] Winters ([facility] hospitalist) Impression Primary Impression: Syncope Qualified Codes: R55 - Syncope and collapse Additional Impression: Acute kidney injury Disposition: ADMITTED INPATIENT Condition: Stable Admissions Decision to Admit Reason: Admit from ER (General) Decision to Admit/Date: October 06, 2022 Time/Decision to Admit Time: 18:00 Departure-Patient Inst. Referrals: CHAI NAVA APRN (PCP) Primary Care Physician [facility] (Family) Primary Care Physician CAROLINE CABAN MD October 06, 2022 15:51
[2022-10-06] MEDS ORDERED: NS IV 1000 ML 1,000 ML IV SCH (16:00)
[2022-10-06 16:17] LABS: BASOPHILS # (AUTO) 0.1 10^3/uL (0.0-0.1); BASOPHILS % (AUTO) 0 % (0-10); EOSINOPHILS # (AUTO) 0.1 10^3/uL (0.0-0.3); EOSINOPHILS % (AUTO) 1 % (0-10); HEMATOCRIT 41 % (35-52); LYMPHOCYTES # (AUTO) 3.2 X 10^3 (1.0-4.0); LYMPHOCYTES % (AUTO) 22 % (12-44); MEAN CORPUSCULAR HEMOGLOBIN 31 pg (25-34); MEAN CORPUSCULAR HGB CONC 34 g/dL (32-36); MEAN CORPUSCULAR VOLUME 91 fL (80-99); MEAN PLATELET VOLUME 10.1 fL (9.0-12.2); MONOCYTES % (AUTO) 7 % (0-12); NEUTROPHILS % (AUTO) 69 % (42-75); PLATELET COUNT 430 10^3/uL (130-400); WHITE BLOOD COUNT 14.4 10^3/uL (4.3-11.0)
[2022-10-06 16:24] LABS: ALBUMIN 4.4 GM/DL (3.2-4.5)
[2022-10-06 16:25] LABS: POTASSIUM 3.4 MMOL/L (3.6-5.0)
[2022-10-06 16:26] LABS: CALCIUM 10.2 MG/DL (8.5-10.1)
[2022-10-06 16:29] LABS: BILIRUBIN,TOTAL 1.1 MG/DL (0.1-1.0)
[2022-10-06] MEDS ORDERED: HYDROcodone/APAP 5 MG/325 MG (LORTAB) TAB PO ONE (16:30)
[2022-10-06 16:31] LABS: CREATININE SERUM 1.95 MG/DL (0.60-1.30)
[2022-10-06 16:36] LABS: BASOPHILS % (MANUAL) 1 %; EOSINOPHILS % (MANUAL) 2 %; LYMPHOCYTES % (MANUAL) 16 %; MONOCYTES % (MANUAL) 6 %; NEUTROPHILS % (MANUAL) 70 %; REACTIVE LYMPHOCYTES 5 %
[2022-10-06 16:43] LABS: BILIRUBIN,URINE NEGATIVE (NEGATIVE); CLARITY,URINE SL CLOUDY; COLOR,URINE YELLOW; GLUCOSE, URINE (UA) 1+ (NEGATIVE); KETONES,URINE NEGATIVE (NEGATIVE); LEUKOCYTE ESTERASE ,URINE NEGATIVE (NEGATIVE); NITRITE,URINE NEGATIVE (NEGATIVE); PH,URINE 5.5 (5-9); PROTEIN,URINE NEGATIVE (NEGATIVE)
[2022-10-06 16:56] LABS: BACTERIA,URINE FEW /HPF; WBC,URINE 0-2 /HPF
[2022-10-06 17:20] VITALS: BP_SYST 129; BP_SYST 142; BP_SYST 145; BP_DIAS 70; BP_DIAS 78
[2022-10-06] MEDS ORDERED: MILK OF MAGNESIA 400 MG/5 ML 30 ML UDC PO PRN (19:15)
[2022-10-06] MEDS ORDERED: diphenhydrAMINE 25 MG TAB (BENADRYL) PO PRN (19:15)
[2022-10-06] MEDS ORDERED: ALPRAZolam 1 MG (XANAX) TAB PO PRN (19:15)
[2022-10-06] MEDS ORDERED: MELATONIN 3 MG TABLET PO PRN (19:15)
[2022-10-06] MEDS ORDERED: HYDROmorphone 2 MG/ML VIAL (DILAUDID) IV PRN (19:15)
[2022-10-06] MEDS ORDERED: CALCIUM CARBONATE 500 MG (TUMS) TAB.CHEW PO PRN (19:15)
[2022-10-06] MEDS ORDERED: diphenhydrAMINE 50 MG/ML INJ (BENADRYL) IVP PRN (19:15)
[2022-10-06] MEDS ORDERED: polyethylene glycoL POWDER 17 GM (MIRALAX) PACK PO PRN (19:15)
[2022-10-06] MEDS ORDERED: BISACODYL 10 MG SUPP (DULCOLAX) PR PRN (19:15)
[2022-10-06] MEDS ORDERED: ANTACID SUSP 30 ML UDC (MYLANTA) PO PRN (19:15)
[2022-10-06] MEDS ORDERED: LACTULOSE SYRUP 10GM/15ML (ENULOSE) 30ML UDC PO PRN (19:15)
[2022-10-06] MEDS ORDERED: ONDANSETRON 4 MG (ZOFRAN) ORAL DISSOLVE TAB PO PRN (19:15)
[2022-10-06] MEDS ORDERED: ACETAMINOPHEN 325 MG TABLET PO PRN (19:15)
[2022-10-06] MEDS ORDERED: ONDANSETRON 4 MG/2 ML (SDV) Z0FRAN IV PRN (19:15)
[2022-10-06 19:28] VITALS: BP 106/73
[2022-10-06] MEDS ORDERED: RT-ALBUTEROL/IPRATROPIUM 3 ML (DUONEB) VIAL INH PRN (19:30)
[2022-10-06] MEDS: NS IV 1000 ML 1,000 ML IV SCH (19:35)
[2022-10-06] MEDS: DOCUSATE SODIUM 100 MG (COLACE) CAP PO SCH (19:35)
[2022-10-06] MEDS: SENNOSIDES 8.6 MG (SENOKOT) TAB PO SCH (19:35)
[2022-10-06] MEDS: inSUlin ASPART (NovoLOG) 1 UNIT/0.01 ML (CHARGE PER UNIT) SC SCH (20:36)
[2022-10-06] MEDS: ALPRAZolam 0.5 MG (XANAX) TAB PO PRN (21:01)
[2022-10-06 21:49] VITALS: BP 105/55
[2022-10-06 23:35] VITALS: BP 103/56
[2022-10-07] MEDS: ALPRAZolam 0.5 MG (XANAX) TAB PO PRN ×4 (00:48→19:30)
[2022-10-07 03:34] VITALS: BP 122/58
[2022-10-07] MEDS: NS IV 1000 ML 1,000 ML IV SCH ×2 (03:43→11:43)
--- NOTE | 2022-10-07 04:52 | Short Stay Summary-Hospitalist ---
History of Present Illness HPI/Chief Complaint CC: Weakness with hypotension and PATRICIO HPI: This is a 62yoWF clinic patient of [facility] who has a h/o malignant HTN who presented to the ER with hypotension and PATRICIO due to N/V/D from Monday until Mon and continued to take BP meds. Currently she feels better, has back pain after a fall and has muscle spasms but her kidney function is improved. Source: patient Exam Limitations: no limitations Date Seen 10/07/22 Time Seen by a Provider: 11:00 Attending Physician Mary Ponce Aprn PCP Admitting Physician: Coco Winters DO Attending Physician: Coco Winters DO Referring Physician Date of Admission October 06, 2022 at 19:01 Home Medications & Allergies Home Medications Reviewed patient Home Medication Reconciliation performed by pharmacy medication reconciliations mechanical service technician and/or nursing. Patients Allergies have been reviewed. Allergies Allergies Coded Allergies Penicillins (Verified Allergy, Unknown, 12/15/15) Past Zfcegtm-Pmbuqd-Kapisc Hx Patient Social History Marrital Status: single Employed/Student: unemployed Tobacco Use?: Yes Tobacco type used: Cigarettes Smoking Status: Current Everyday Smoker Use of E-Cig and/or Vaping dev: No Substance use?: No Substance type: Marijuana Additional substance use comme: THC gummies Substance frequency: Daily Alcohol Use?: No Pt feels they are or have been: No Immunizations Up To Date First/Initial COVID19 Vaccinat: DENIES Tetanus Booster (TDap): Less Than 5 Years Hepatitis A: No Hepatitis B: No PED Vaccines UTD: Yes Seasonal Allergies Seasonal Allergies: No Current Status Advance Directives: No Advance Directive Location: Home Communicates: Verbally Primary Language: Romansh Preferred Spoken Language: Romansh Is interpretation needed?: No Sensory deficits: Vision impairment Implanted or Applied Medical D: Orthopedic hardware Past Medical History Surgeries: Abdominal, Appendectomy, Section, Coronary Stent, Gallbladder, Hysterectomy, Orthopedic, Tonsillectomy Sleep Apnea Currently Using CPAP: No Atrial Fibrillation, Coronary Artery Disease, High Cholesterol, Hypertension, Irregular Heartbeat, Valvular Heart Disease Neuropathy RECORDING STUDIO INTERN History: Hysterectomy, Menopausal Renal Failure Arthritis, Back Injury, Chronic Back Pain, Fractures Diabetes, Insulin dep, Hypothyroidsim Anxiety, Bipolar, Depression Blood Disorders: No PMHx: DMII HTN Palpitations HLD CRI Scleroderma Raynaud's phenomenon Osteopenia Fibromyalgia CAD- stents x 2 Chronic diastolic heart failure SurgHx: Back surgery after burst fracture 2020 Cholecystectomy Hysterectomy, bilateral salpingoophorectomy Family Medical History Cancer, Diabetes, Psychiatric Problems SOCIAL HISTORY: -SMOKES 1 PPD -ETOH--HISTORY OF ABUSE, CLAIMS NO ALCOHOL X 30 YEARS -DRUGS--DAILY/REGULAR THC USE PAST SURGICAL HISTORY: -APPENDECTOMY -CHOLECYSTECTOMY - X 2 -HYSTERECTOMY / BILATERAL SALPINGO-OOPHORECTOMY -BACK SURGERY WITH RODS 08/24/2020 DUE TO TRAUMA / FALL -RIGHT FEMUR FX/ORIF 03/03/[address] GUTIERREZ PT FELL ON 08/20/20, HAD T12 BURST FRACTURE AND RIGHT WRIST FRACTURE AND WAS TRANSFERRED TO [facility] ON 08/24/20, PT HAD T12-L1 LAMINECTOMY AND BILATERAL DECOMPRESSION, AND T10-T11, T11-T12, T12-L1, L1-L2 POSTERIOR LATERAL FUSION USING [employer] PEDICLE SCREWS AND LOCAL BONE GRAFT BY DR. STEINER. PT WITH MULTIPLE FALLS AND HAS HAD MULTIPLE FRACTURES IN THE LAST 2 YEARS, INCLUDING SPINE FRACTURES AND RIGHT HIP FRACTURE REQUIRING SURGERY. ADDITIONALLY SHE HAS HAD FRACTURES OF HER RIGHT CLAVICLE AND RIGHT WRIST FRACTURE WHICH DID NOT REQUIRE SURGERY. CARDIAC CATH 08/24/[address] NAIK: CONCLUSIONS: 1. Coronary artery disease primarily consisting of distal occlusion of a codominant left circumflex and a long, up to 99% stenosis in the first obtuse marginal that was successfully stented with overlapping Skypoint 3.0 x 32 mm and Skypoint 3.0 x 12 mm stents with reduction of restenosis to 0% residual and improvement of flow from ZAHIRA 2 to ZAHIRA 3. The first diagonal branch, left anterior descending artery is of a small caliber and has 60% proximal stenosis. The rest of the vessels have diffuse mild to moderate plaque. 2. Well preserved global left ventricular systolic function. 3. Localized posterobasal akinesis. 4. Left ventricular end-diastolic pressure 12 mmHg. STRESS TEST 07/19/[address] NAIK: -FINDINGS: Baseline images were carried out after injection of 10.75 mCi of technetium-99m tetrofosmin. This was followed by 0.4 mg regadenoson and 30.2 mCi of technetium-99m tetrofosmin for stress imaging. The electrocardiogram showed sinus rhythm at baseline. It did not change significantly with the regadenoson infusion. The patient tolerated the procedure well. Isolated premature ventricular contractions were seen during the study. The patient noted some shortness of breath following regadenoson infusion, which resolved in a few minutes. Review of images at rest and following stress indicate a relatively small basal inferolateral perfusion defect, which appears predominantly fixed. Gated images showed localized inferolateral hypokinesis. Left ventricular ejection fraction is calculated to be 51%. CONCLUSIONS: 1. This study is suggestive of basal inferolateral myocardial infarction with a small amount of krissy-infarct ischemia. 2. Localized, basal inferolateral hypokinesis. 3. Well preserved global left ventricular systolic function, left ventricular systolic function with an ejection fraction of 51%. Review of Systems Constitutional: see HPI, dizziness, malaise, weakness Musculoskeletal: back pain Physical Exam Physical Exam Vital Signs Vital Signs - First Documented 10/06/22 10/06/22 15:41 19:22 Temp 35.6 Pulse 72 Resp 16 B/P (MAP) 99/67 (78) Pulse Ox 97 O2 Delivery Room Air FiO2 21 Capillary Refill : Less Than 3 Seconds Height, Weight, BMI Height: 5'7.00" Weight: 165lbs. 0.0oz. 74.354716vv; 19.27 BMI Method:Stated General Appearance: No Apparent Distress, Chronically ill, Thin Eyes: Bilateral Eye Normal Inspection, Bilateral Eye PERRL, Bilateral Eye EOMI HEENT: PERRL/EOMI, Normal ENT Inspection, Pharynx Normal, Moist Mucous Membranes Neck: Normal Inspection, Non Tender Respiratory: Lungs Clear, Normal Breath Sounds, No Accessory Muscle Use, No Respiratory Distress, Other (Tenderness to left lower posterior ribs, no crepitance.) Cardiovascular: Regular Rate, Rhythm, Normal Peripheral Pulses Gastrointestinal: Normal Bowel Sounds (Slightly hyperactive), Non Tender, Soft Back: Normal Inspection, Other (Mild tenderness over the midline thoracic surgical scar, no erythema or skin wounds) Extremity: Normal Capillary Refill, Normal Inspection, Normal Range of Motion, Non Tender, No Calf Tenderness, No Pedal Edema Neurologic/Psychiatric: Alert, Oriented x3, No Motor/Sensory Deficits, Normal Mood/Affect, dive 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 Short Stay Diagnosis Discharge Diagnosis-Short Stay Admission Diagnosis Assessment: Near syncope Hypotension PATRICIO CAD Malignant HTN HLP Plan: IVF Ambulate Back pain Final Discharge Diagnosis Assessment: Near syncope Hypotension PATRICIO CAD Malignant HTN HLP Plan: IVF Ambulate Back pain Conclusion Plan Baclofen IVF Ambulate COCO WINTERS DO October 07, 2022 04:52
[2022-10-07 05:30] LABS: BASOPHILS # (AUTO) 0.1 10^3/uL (0.0-0.1); BASOPHILS % (AUTO) 1 % (0-10); EOSINOPHILS # (AUTO) 0.2 10^3/uL (0.0-0.3); EOSINOPHILS % (AUTO) 3 % (0-10); HEMATOCRIT 36 % (35-52); HEMOGLOBIN 12.5 g/dL (11.5-16.0); LYMPHOCYTES # (AUTO) 3.5 10^3/uL (1.0-4.0); LYMPHOCYTES % (AUTO) 36 % (12-44); MEAN CORPUSCULAR HEMOGLOBIN 31 pg (25-34); MEAN CORPUSCULAR HGB CONC 34 g/dL (32-36); MEAN CORPUSCULAR VOLUME 90 fL (80-99); MEAN PLATELET VOLUME 10.6 fL (9.0-12.2); MONOCYTES # (AUTO) 0.8 10^3/uL (0.0-1.0); MONOCYTES % (AUTO) 8 % (0-12); NEUTROPHILS # (AUTO) 5.1 10^3/uL (1.8-7.8); NEUTROPHILS % (AUTO) 53 % (42-75); PLATELET COUNT 323 10^3/uL (130-400); WHITE BLOOD COUNT 9.7 10^3/uL (4.3-11.0)
[2022-10-07] MEDS: inSUlin ASPART (NovoLOG) 1 UNIT/0.01 ML (CHARGE PER UNIT) SC SCH ×4 (05:40→20:21)
[2022-10-07 05:53] LABS: ALBUMIN 3.3 GM/DL (3.2-4.5); BILIRUBIN,TOTAL 0.6 MG/DL (0.1-1.0); CALCIUM 8.6 MG/DL (8.5-10.1); CREATININE SERUM 0.86 MG/DL (0.60-1.30); POTASSIUM 3.3 MMOL/L (3.6-5.0); TOTAL PROTEIN 5.6 GM/DL (6.4-8.2)
[2022-10-07 08:34] VITALS: BP 160/74
[2022-10-07] MEDS: KCL 20 MEQ TAB (K-DUR) PO SCH (08:48)
[2022-10-07] MEDS: DOCUSATE SODIUM 100 MG (COLACE) CAP PO SCH ×2 (08:49→19:38)
[2022-10-07] MEDS: SENNOSIDES 8.6 MG (SENOKOT) TAB PO SCH ×2 (08:49→19:38)
[2022-10-07] MEDS ORDERED: BACLOFEN 10 MG (LIORESAL) TAB PO PRN (11:30)
--- NOTE | 2022-10-07 11:38 | Physical Therapy Evaluation ---
PT Evaluation-General Medical Diagnosis Admission Date October 06, 2022 at 19:01 Medical Diagnosis: acute kidney injury/syncope Onset Date: October 06, 2022 Therapy Diagnosis Therapy Diagnosis: debility Height/Weight Height (Feet): 5 Height (Inches): 7.00 Weight (Pounds): 165 Weight (Ounces): 0.0 Precautions Precautions/Isolations: Standard Precautions Referral Physician: Zane Reason for Referral: Evaluation/Treatment Medical History Pertinent Medical History: Atrial Fib, CAD, DM, Fractures, HTN, Neuropathy, Renal Insufficiency, Smoking Current History ER secondary to fall x 4 Reviewed History: Yes Social History Home: Apartment Prior Prior Level of Function SCALE: Activities may be completed with or without assistive devices. 8-Yqyjtdfoid-xzkwxuu completes the activity by him/herself with no assistance fr om a helper. 5-Set-up or Clean-up Assistance-helper sets up or cleans up; patient completes activity. [place] assists only prior to or following the activity. 4-Supervision or Touching Assistance-helper provides verbal cues and/or touching/steadying and/or contact guard assistance as patient completes activity. Assistance may be provided throughout the activity or intermittently. 3-Partial/Moderate Assistance-helper does LESS THAN HALF the effort. [place] lifts, holds or supports trunk or limbs, but provides less than half the effort. 2-Substantial/Maximal Assistance-helper does MORE THAN HALF the effort. [place] lifts or holds trunk or limbs and provides more than half the effort. 3-Btnlyiavu-tpzgul does ALL the effort. Patient does none of the effort to complete the activity. Or, the assistance of 2 or more helpers is required for the patient to complete the activity. If activity was not attempted, code reason: 7-Patient Refused. 9-Not Applicable-not attempted and the patient did not perform the activity before the current illness, exacerbation or injury. 10-Not Attempted due to Environmental Limitations-(lack of equipment, weather restraints, etc.). 88-Not Attempted due to Medical Conditions or Safety Concerns. Bed Mobility: 6 Transfers (B,C,W/C): 6 Gait: 6 Prior Devices Use: Walker (4WW PRN) PT Evaluation-Current Subjective Patient agrees to PT. She reports she is feeling better. Objective Patient Orientation: Normal For Age Attachments: IV ROM/Strength ROM Lower Extremities bilateral LE WFL Strength Lower Extremities 4/5 grossly bilateral LE all planes Integumentary/Posture Bowel Incontinence: No Bladder Incontinence: No Posture WFL Neuromuscular (Tone, Coordination, Reflexes) grossly intact Sensory Vision: Functional Hearing: Functional Transfers Sit to Lying (QC): 6 Lying to Sitting/Side of Bed(Q: 6 Sit to Stand (QC): 6 Gait Mode of Locomotion: Walk Anticipated Mode of Locomotion: Walk Walk 10 feet (QC): 6 Walk 50 ft with 2 Turns(QC): 6 Walk 150 ft (QC): 6 Distance: 400' Gait Assistive Device: FWW Comments/Gait Description safe and functional with no deviation Balance Sitting Static: Normal Sitting Dynamic: Normal Standing Static: Normal Standing Dynamic: Normal Assessment/Needs Patient is currently at independent PLOF with all gross motor skills and does not require skilled PT intervention at this time. Physician notified Rehab Potential: Fair PT Plan Treatment/Plan Treatment Plan: Discontinue PT Treatment Duration: October 07, 2022 Frequency: 1 time per week Estimated Hrs Per Day: .25 hour per day Patient and/or Family Agrees t: Yes Time Time In: 1120 Time Out: 1130 DATE: October 07, 2022 Total Billed Treatment Time: 10 Total Billed Treatment 1 visit EVModC 10 min ADRIEL MERCADO PT October 07, 2022 11:38
[2022-10-07] MEDS: amLODIPine 5 MG (NORVASC) TAB PO SCH (11:43)
--- NOTE | 2022-10-07 11:46 | Occupational Therapy Eval ---
OT Evaluation-General/PLF Medical Diagnosis Admission Date October 06, 2022 at 19:01 Medical Diagnosis: acute kidney injury/syncope Onset Date: October 06, 2022 Therapy Diagnosis Therapy Diagnosis: falls Height/Weight Height (Feet): 5 Height (Inches): 7.00 Weight (Pounds): 165 Weight (Ounces): 0.0 Precautions Precautions/Isolations: Standard Precautions Referral Physician: Zane Referral Reason: Evaluation/Treatment Medical History Pertinent Medical History: Atrial Fib, CAD, DM, Fractures, HTN, Neuropathy, Renal Insufficiency, Smoking Additional Medical History Anxiety, depression, bipolar. Thoracic back surgery 2 years ago. R femur fx and wrist fx in 2021. Sleep apnea. Raynaud's. Fibromyalgia Current History Admitted with low blood pressure. Dizziness/syncope. Fell 4 times recently and hit head and back. L rib pain. Diarrhea. Acute kidney injury Reviewed History: Yes Social History Home: Apartment Current Living Status: Alone ADL-Prior Level of Function SCALE: Activities may be completed with or without assistive devices. 3-Mllcxrxoed-balxccm completes the activity by him/herself with no assistance from a helper. 5-Set-up or Clean-up Assistance-helper sets up or cleans up; patient completes activity. [place] assists only prior to or following the activity. 4-Supervision or Touching Assistance-helper provides verbal cues and/or touching/steadying and/or contact guard assistance as patient completes activity. Assistance may be provided throughout the activity or intermittently. 3-Partial/Moderate Assistance-helper does LESS THAN HALF the effort. [place] lifts, holds or supports trunk or limbs, but provides less than half the effort. 2-Substantial/Maximal Assistance-helper does MORE THAN HALF the effort. [place] lifts or holds trunk or limbs and provides more than half the effort. 0-Cmwsiwpve-omniux does ALL the effort. Patient does none of the effort to complete the activity. Or, the assistance of 2 or more helpers is required for the patient to complete the activity. If activity was not attempted, code reason: 7-Patient Refused. 9-Not Applicable-not attempted and the patient did not perform the activity before the current illness, exacerbation or injury. 10-Not Attempted due to Environmental Limitations-(lack of equipment, weather restraints, etc.). 88-Not Attempted due to Medical Conditions or Safety Concerns. ADL PLOF Comments Pt reported that she has been independent in [facility] self care and still drives. She reported that she hasn't been able to work since her back surgery. Self Care: Independent Functional Cognition: Independent OT Current Status Subjective Pt seen in room, up in bed, agreeable to OT. No pain reported Appearance Alert, cooperative Mental Status/Objective Patient Orientation: Person, Place, Time, Situation Current Glasses/Contacts: Yes Hearing Aids: No Dentures/Partials: No Upper Extremity ROM Grossly WFL bilat Upper Extremity Strength Grossly 4/5 bilat ADL-Treatment ADL-Current Pt is able to feed herself independently. Per PT eval, she is independent in her room with FWW although she did tell OT that she has the nurses unplug her IV and bring it along. She reported no concerns with basic ADLs at this time and UE strength is functional. She stated that her biggest limiting factor is her dizziness. No skilled OT needs identiified. Education OT Patient Education: Purpose of tx/functional activities Teaching Recipient: Patient Teaching Methods: Discussion Response to Teaching: Verbalize Understanding OT Jewel Hole Cornerer Goals Correction Goals 1=Demonstrate adherence to instructed precautions during ADL tasks. 2=Patient will verbalize/demonstrate understanding of assistive devices/[place] fications for ADL. 3=Patient will improve strength/tolerance for activity to enable patient to perform ADL's. OT Education/Plan Problem List/Assessment Assessment: No Skilled OT Needs ID'd No skilled OT needs identified Discharge Recommendations Plan/Recommendations: Discontinue OT Treatment Plan/Plan of Care Treatment,Training & Education: No Patient would benefit from OT for education, treatment and training to promote independence in ADL's, mobility, safety and/or upper extremity function for ADL's. Plan of Care: OTHER (DC OT) Treatment Duration: October 07, 2022 Frequency: 1 time per week Rehab Potential: Fair Time Start Time: 11:28 Stop Time: 11:36 DATE: October 07, 2022 Total Time Billed (hr/min): 8 Billed Treatment Time visit, OT claudia low intensity 8 minutes ALIZA MILIAN OT October 07, 2022 11:46
[2022-10-07 11:54] VITALS: BP 128/79
[2022-10-07] MEDS: ENOXAPARIN 40 MG/0.4 ML (LOVENOX) SYR SC SCH (13:13)
[2022-10-07 16:10] VITALS: BP 168/93
[2022-10-07 20:08] VITALS: BP 165/92
[2022-10-07 23:49] VITALS: BP 164/78
[2022-10-08] MEDS: ALPRAZolam 0.5 MG (XANAX) TAB PO PRN ×3 (02:49→13:11)
[2022-10-08 03:38] VITALS: BP 192/90
[2022-10-08 04:08] VITALS: BP 120/70
[2022-10-08] MEDS: NS IV 1000 ML 1,000 ML IV SCH (04:09)
[2022-10-08] MEDS: inSUlin ASPART (NovoLOG) 1 UNIT/0.01 ML (CHARGE PER UNIT) SC SCH ×2 (05:43→11:25)
[2022-10-08] MEDS: KCL 20 MEQ TAB (K-DUR) PO SCH (05:43)
[2022-10-08 05:49] LABS: BASOPHILS # (AUTO) 0.1 10^3/uL (0.0-0.1); BASOPHILS % (AUTO) 1 % (0-10); EOSINOPHILS # (AUTO) 0.3 10^3/uL (0.0-0.3); EOSINOPHILS % (AUTO) 3 % (0-10); HEMATOCRIT 37 % (35-52); HEMOGLOBIN 12.6 g/dL (11.5-16.0); LYMPHOCYTES # (AUTO) 3.1 10^3/uL (1.0-4.0); LYMPHOCYTES % (AUTO) 32 % (12-44); MEAN CORPUSCULAR HEMOGLOBIN 30 pg (25-34); MEAN CORPUSCULAR HGB CONC 34 g/dL (32-36); MEAN CORPUSCULAR VOLUME 90 fL (80-99); MEAN PLATELET VOLUME 10.2 fL (9.0-12.2); MONOCYTES # (AUTO) 0.7 10^3/uL (0.0-1.0); MONOCYTES % (AUTO) 7 % (0-12); NEUTROPHILS # (AUTO) 5.4 10^3/uL (1.8-7.8); NEUTROPHILS % (AUTO) 57 % (42-75); PLATELET COUNT 317 10^3/uL (130-400); WHITE BLOOD COUNT 9.6 10^3/uL (4.3-11.0)
[2022-10-08 06:29] LABS: ALBUMIN 3.8 GM/DL (3.2-4.5); POTASSIUM 3.5 MMOL/L (3.6-5.0)
[2022-10-08 06:30] LABS: CALCIUM 9.1 MG/DL (8.5-10.1)
[2022-10-08 06:32] LABS: TOTAL PROTEIN 6.2 GM/DL (6.4-8.2)
[2022-10-08 06:33] LABS: BILIRUBIN,TOTAL 1.2 MG/DL (0.1-1.0)
[2022-10-08 06:35] LABS: CREATININE SERUM 0.72 MG/DL (0.60-1.30)
[2022-10-08 07:32] VITALS: BP 180/86
[2022-10-08] MEDS: amLODIPine 5 MG (NORVASC) TAB PO SCH (07:56)
[2022-10-08] MEDS: DOCUSATE SODIUM 100 MG (COLACE) CAP PO SCH (07:57)
[2022-10-08] MEDS: SENNOSIDES 8.6 MG (SENOKOT) TAB PO SCH (07:57)
[2022-10-08] MEDS: ENOXAPARIN 40 MG/0.4 ML (LOVENOX) SYR SC SCH (12:16)
[2022-10-08 12:21] VITALS: BP 149/77
== END 2022-10-08 11:52 | disposition home or self-care (01) ==
LOC: EDUNIT# 15:38 → ER 15:39 → 4TH 18:55 → UNDOADMOB 19:01 → 4TH 19:01 → UNDODISOB 10-08 11:52
PROVIDERS: ADMIT Internal Medicine; ATTEND Internal Medicine
DX: R55 Syncope and collapse (principal); I95.9 Hypotension, unspecified; N17.9 Acute kidney failure, unspecified; I25.10 Atherosclerotic heart disease of native coronary artery without angina pectoris; I10 Essential (primary) hypertension; E78.5 Hyperlipidemia, unspecified; F17.210 Nicotine dependence, cigarettes, uncomplicated
CPT/HCPCS: 80053 ×3; 81000; 82947 ×3; 85007; 85025 ×2; 85027; 87077; 87088; 94760; 96361 ×3; 96372 ×2; 97162; 97165; 99284; G0378; 36415

== ENCOUNTER → 2022-10-24 | Outpatient (CLI) | payer MEDICARE ==
[~2022-10-24] MED LIST changes: +IOHEXOL 350 MG/ML 100 ML (OMNIPAQUE 350) VIAL IV ONE; +NS 100 ML (IVPB) BAG IV ONE
[2022-10-24 14:57] LABS: CREATININE SERUM 0.84 MG/DL (0.60-1.30)
--- NOTE | 2022-10-24 19:31 | Diagnostic Imaging Report ---
INDICATION: Asymmetric blood pressures, history of squamous cell carcinoma. TECHNIQUE: Multiple contiguous axial images were obtained through the chest after uneventful bolus administration of intravenous contrast. 3D reconstructed CTA MIP acquisitions were also performed. Auto Exposure Controls were utilized during the CT exam to meet ALARA standards for radiation dose reduction. Comparison made with prior chest CT 08/03/2022. FINDINGS: There is no CT evidence of pulmonary emboli. The bolus timing was timed for the arterial system, and therefore the pulmonary arterial structures are not well opacified. There is no evidence of thoracic aortic aneurysm or dissection. There is mild atherosclerotic plaquing in the thoracic aorta. The great vessel origins are patent and without stenosis. 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 Visualized portions of the common carotid arteries show mild narrowing of the left common carotid artery. There are no enlarged mediastinal or hilar nodes. There are no enlarged axillary nodes or chest wall masses. There is no pleural or pericardial fluid. Compression deformities in the lower thoracic spine are again noted, with unchanged thoracolumbar spine fusion. Lung parenchymal windows demonstrated no focal infiltrates or nodules. IMPRESSION: CTA of the chest demonstrates a high-grade stenosis of the horizontal portion of the left subclavian artery just beyond the left vertebral artery takeoff. There is a mild area of narrowing in the left common carotid artery. Great vessel origins appear patent. Bolus timing for the pulmonary arterial structures is limited but shows no overt emboli. There is no pulmonary parenchymal lesion or pleural fluid or adenopathy. Dictated by: Dictated on workstation # [id number]
== END ==
LOC: RAD 14:24
PROVIDERS: ATTEND Internal Medicine Cardiovascular Disease
DX: I70.8 Atherosclerosis of other arteries (principal); I25.10 Atherosclerotic heart disease of native coronary artery without angina pectoris
CPT/HCPCS: 36415; 71275; 80048